=== PATIENT | female | born 1955 | race Caucasian/White ===

== ENCOUNTER 2020-09-22 13:02 | Outpatient (REF) | payer OTHER, SELFPAY | END 2020-09-22 13:03 | disposition home or self-care (01) | LOC: HO.LAB 13:02 | PROVIDERS: Visit Provider Nurse Practitioner Family | DX: R30.0 Dysuria (principal) | CPT/HCPCS: 87086 ==

== ENCOUNTER 2020-09-26 17:47 | Emergency (ER) | payer OTHER, SELFPAY ==
[2020-09-26 17:54] VITALS: BP 150/69; BP 160/82; PULSE 87; PULSE 90; RESP 18; TEMP 37.2; O2SAT 99; BMI 24.4
--- NOTE | 2020-09-26 18:14 | ECG_ITS ---
Test Reason : DIZZINESS Blood Pressure : / mmHG Vent. Rate : 090 BPM Atrial Rate : 090 BPM P-R Int : 160 ms QRS Dur : 090 ms QT Int : 402 ms P-R-T Axes : 035 047 057 degrees QTc Int : 491 ms Normal sinus rhythm Normal ECG When compared with ECG of 30-APR-2020 13:50, No significant change was found Referred By: Jayden Armenta Electronically Signed By:HILARIA BYERS MD
--- NOTE | 2020-09-26 18:22 | ED.DIZZY ---
HPI - Dizziness General Chief Complaint: Dizziness Stated Complaint: anxiety Time Seen by Provider: 09/26/20 18:13 Source: patient Mode of arrival: ambulatory Limitations: no limitations History of Present Illness HPI Narrative: patient been complaining of increased anxiety for last few days upper back pain for last 2 weeks today she was bending down and all of a sudden she felt dizzy when she came she was hyperventilating patient denies any significant precipitating factor already on tramadol and Flexeril without any response and seen her primary care doctor last week MD elicited complaint: dizziness and lightheadedness Timing: sudden onset Severity: mild Description: lightheadedness History of similar symptoms: No Related Data Home Medications Medication Instructions Recorded Confirmed acetaminophen 500 mg tablet mg PO 09/22/20 albuterol sulfate 90 mcg/actuation 1 - 2 puff INHALATION Q4-6H PRN 09/22/20 aerosol inhaler alcohol swabs pad TOPICAL 09/22/20 azithromycin 250 mg tablet mg PO 09/22/20 blood sugar diagnostic #10 ea 09/22/20 bupropion HCl 150 mg 24 hr tablet, 150 mg PO DAILY 09/22/20 extended release canagliflozin 100 mg tablet 100 mg PO DAILY 09/22/20 cefpodoxime 100 mg tablet 100 mg PO Q12H 09/22/20 cholecalciferol (vitamin D3) 50 50 mcg PO DAILY 09/22/20 mcg (2,000 unit) tablet cyanocobalamin (vitamin B-12) 1,000 mcg SUBLINGUAL DAILY 09/22/20 1,000 mcg sublingual tablet flash glucose scanning reader #1 ea 09/22/20 flash glucose sensor #1 ea 09/22/20 hydrocodone-homatropine 5 mg-1.5 5 ml PO Q8H PRN 09/22/20 mg/5 mL oral syrup ibuprofen 800 mg tablet 800 mg PO BID 09/22/20 lancets 28 gauge #100 ea 09/22/20 liraglutide 0.6 mg/0.1 mL (18 mg/3 mg SUBCUT 09/22/20 mL) subcutaneous pen injector metformin 1,000 mg tablet 1,000 mg PO BID 09/22/20 omeprazole 20 mg capsule,delayed 20 mg PO DAILY 09/22/20 release oxycodone 5 mg tablet 5 mg PO Q6H PRN 09/22/20 pen needle, diabetic 31 gauge x #50 ea 09/22/20 3/16 pen needle, diabetic 32 gauge x #50 ea 09/22/20 phenazopyridine 200 mg tablet 200 mg PO TID 09/22/20 simvastatin 80 mg tablet 80 mg PO DAILY 09/22/20 tramadol 50 mg tablet mg PO 09/22/20 trazodone 150 mg tablet 150 mg PO BEDTIME 09/22/20 trazodone 50 mg tablet mg PO 09/22/20 Previous Rx's Medication Instructions Recorded atorvastatin 80 mg tablet 80 mg PO DAILY #30 tab 09/05/20 cyclobenzaprine 5 mg tablet 5 mg PO BEDTIME PRN #10 tab 09/22/20 hydrocortisone 1 % topical cream 1 applic CO BID #28.4 g 09/22/20 with perineal applicator nitrofurantoin 100 mg PO Q12H 7 Days #14 cap 09/22/20 monohydrate/macrocrystals 100 mg capsule Allergies Allergy/AdvReac Type Severity Reaction Status Date / Time No Known Allergies Allergy Unverified 08/12/20 17:42 [No Known Allergies*] estradiol [Vivelle] AdvReac Unknown N/V Verified 07/08/20 00:00 Review of Systems Review of Systems: REVIEW OF SYSTEMS: Pertinent positives and negatives are stated above in the history. GEN: no fevers, chills, fatigue HEENT: no nasal congestion, sore throat, ear pain NEURO: no headache, dizziness, focal weakness PULM: no cough, shortness of breath CV: no chest pain, palpitations, LE edema ABD: no abdominal pain, nausea, vomiting, diarrhea : no dysuria, urgency, frequency SKIN: no rash ROS otherwise negative x 10 [facility] Past Medical History Medical History Carpal tunnel syndrome Depression Elevated cholesterol Hemorrhoids Hypertension IDDM (insulin dependent diabetes mellitus) Incontinence Insomnia Tubal occlusion Surgical History H/O tubal ligation History of bladder surgery History of heart artery stent Hx of appendectomy Hx of breast reduction, elective S/P sinus surgery Social History Social History Alcohol intake: never Smoking Status: Never smoker Use of substances other than those prescribed or required for medical reasons: No Advance Directives: No Advance Directives Information Provided: No Physical Exam Vital Signs: Vital Signs: Vital Signs Temp Pulse Resp BP Pulse Ox 09/26/20 17:54 98.9 F 87 18 150/69 H 99 Body Mass Index 24.4 Appearance: Alert. Oriented X3. No acute distress. very anxious Eyes: Pupils equal, round and reactive to light. ENT: Pharynx normal. Neck: Normal inspection. Neck supple. diffuse muscular tenderness upper back CVS: Normal heart rate and rhythm. Pulses normal. Respiratory: No respiratory distress. Breath sounds normal. Abdomen: Soft and nontender. Skin: Skin warm and dry. Normal skin color. Normal skin turgor. Extremities: No lower extremity edema. Good range of movement Neuro: Oriented X 3. No motor deficit. No sensory deficit. Course Course Course Narrative: patient very anxious on arrival feels much better after Ativan now walking around in the ER will discharge her home with diagnosis of anxiety and likely fibromyalgia MDM - Dizziness Lab Data Labs: Lab Results 09/26/20 09/26/20 Range/Units 18:19 18:26 POC Glucose 83 (60-115) mg/dL Urine Color YELLOW Urine Appearance CLEAR Urine pH 7.0 (5.0-8.0) Ur Specific [place] 1.010 (1.005-1.025) Urine Protein NEG (NEG-TRACE) MG/DL Urine Glucose (UA) 500 H (NEG) MG/DL Urine Ketones 15 (NEG) MG/DL Urine Blood NEG (NEG) Urine Nitrite NEG (NEG) Ur Leukocyte Esterase 1+ H (NEG) Urine RBC 0 (0) /HPF Urine WBC 30-49 H (0-4) /HPF Ur Squamous Epith Cells 3+ /LPF Urine Bacteria 1+ /LPF ECG Data Attestation: I personally reviewed and interpreted this ECG as follows: Interpretation: normal sinus rate QT interval slightly prolonged [address] T wave changes normal intervals normal axis Discharge Plan Discharge Prescriptions: No Action atorvastatin 80 mg tablet 80 mg PO DAILY Qty: 30 RF: 2 (DME) lancets 28 gauge misc See Rx Instructions lancet topical QID Qty: 100 RF: 0 (DME) FreeStyle Lite Strips Strip See Rx Instructions strip .ROUTE .MEDSUPPLY Qty: 10 RF: 0 (DME) pen needle, diabetic 31 gauge x 3/16 needle See Rx Instructions ea subcut .MEDSUPPLY Qty: 50 RF: 0 cholecalciferol (vitamin D3) 50 mcg (2,000 unit) tablet 50 mcg PO DAILY RF: 0 simvastatin 80 mg tablet 80 mg PO DAILY RF: 0 Victoza 3-Jalil 0.6 mg/0.1 mL (18 mg/3 mL) pen injector subcut RF: 0 cyanocobalamin (vitamin B-12) 1,000 mcg tablet, sublingual 1,000 mcg sublingual DAILY RF: 0 Invokana 100 mg tablet 100 mg PO DAILY RF: 0 omeprazole 20 mg capsule,delayed release(DR/EC) 20 mg PO DAILY RF: 0 (DME) FreeStyle Lisa 14 Day Sensor Kit See Rx Instructions ea topical .MEDSUPPLY Qty: 1 RF: 0 trazodone 150 mg tablet 150 mg PO BEDTIME RF: 0 tramadol 50 mg tablet PO RF: 0 phenazopyridine 200 mg tablet 200 mg PO TID RF: 0 cefpodoxime 100 mg tablet 100 mg PO Q12H RF: 0 bupropion HCl 150 mg tablet extended release 24 hr 150 mg PO DAILY RF: 0 metformin 1,000 mg tablet 1,000 mg PO BID RF: 0 (DME) pen needle, diabetic 32 gauge x 5/32 needle See Rx Instructions ea subcut BID Qty: 50 RF: 0 trazodone 50 mg tablet PO RF: 0 oxycodone 5 mg tablet 5 mg PO Q6H PRN (Reason: pain) RF: 0 ibuprofen 800 mg tablet 800 mg PO BID RF: 0 alcohol swabs Pads, Medicated topical RF: 0 azithromycin 250 mg tablet PO RF: 0 albuterol sulfate 90 mcg/actuation HFA aerosol inhaler 1 - 2 puff inhalation Q4-6H PRN (Reason: dyspnea) RF: 0 hydrocodone-homatropine 5-1.5 mg/5 mL syrup 5 ml PO Q8H PRN (Reason: cough) RF: 0 acetaminophen 500 mg tablet PO RF: 0 (DME) FreeStyle Lisa 14 Day [place] Misc See Rx Instructions ea topical .MEDSUPPLY Qty: 1 RF: 0 nitrofurantoin monohyd/m-cryst [Macrobid] 100 mg capsule 100 mg PO Q12H 7 Days Qty: 14 RF: 0 cyclobenzaprine 5 mg tablet 5 mg PO BEDTIME PRN (Reason: muscle spasm) Qty: 10 RF: 0 hydrocortisone 1 % cream with perineal applicator 1 applic CO BID Qty: 28.4 RF: 0
[2020-09-26 18:23] LABS: Glucose, Whole Blood 83 mg/dL (60-115)
[2020-09-26 18:31] LABS: Appearance Urine CLEAR; Color Urine YELLOW; Glucose Urine UA 500 MG/DL (NEG); Leukocyte Esterase Urine 1+ (NEG); Nitrite Urine NEG (NEG); Urine Blood NEG (NEG); Urine Ketones 15 MG/DL (NEG); Urine Protein NEG (NEG-TRACE)
[2020-09-26] MEDS: LORazepam 1 MG TABLET PO (18:37)
[2020-09-26 18:40] LABS: Bacteria Urine 1+ /LPF; RBC Urine 0 /HPF (0); Squamous Epithelial Cell Urine 3+ /LPF; WBC Urine 30-49 /HPF (0-4)
[2020-09-26 19:33] VITALS: BP 147/80; PULSE 80; RESP 16; TEMP 36.9; O2SAT 98
== END 2020-09-26 19:34 | disposition home or self-care (01) ==
PROVIDERS: Emergency Provider Internal Medicine; PCP Internal Medicine
DX: R42 Dizziness and giddiness (principal); M54.5 Low back pain; M54.6 Pain in thoracic spine; Z79.899 Other long term (current) drug therapy
CPT/HCPCS: 81001; 82947; 87086; 93005; 99283; 99284

== ENCOUNTER → 2020-11-03 08:18 | Outpatient (BNVA) | payer OTHER, SELFPAY | PROVIDERS: PCP Internal Medicine; Referring Provider Internal Medicine; Visit Provider Internal Medicine Endocrinology, Diabetes & Metabolism | DX: E11.649 Type 2 diabetes mellitus with hypoglycemia without coma (principal); E11.42 Type 2 diabetes mellitus with diabetic polyneuropathy; I10 Essential (primary) hypertension; E78.5 Hyperlipidemia, unspecified; E55.9 Vitamin D deficiency, unspecified; M85.80 Other specified disorders of bone density and structure, unspecified site | CPT/HCPCS: 82947; 99212 ==

== ENCOUNTER 2020-11-15 09:38 | Outpatient (REF) | payer OTHER, SELFPAY ==
--- NOTE | 2020-11-15 09:43 | MM_ITS ---
EXAMINATION: MM SCREENING DIGITAL BREAST TOMOSYNTHESIS, BILATERAL CLINICAL INFORMATION: Screening. Asymptomatic. Prior history breast reduction mammoplasty 1976. No known family history breast cancer. The lifetime risk of breast cancer based on the Tyrer-Cuzick Model is 6%. COMPARISON: Mammography: 11/06/2019, 09/24/2018, 08/09/2017 TECHNIQUE: Digital breast tomosynthesis is performed in both the craniocaudal and mediolateral oblique views along with computer-aided detection (CAD). Synthesized 2D images are generated from the tomosynthesis. FINDINGS: There are scattered areas of fibroglandular density (ACR BI-RADS breast composition Category b). Parenchymal pattern is similar to prior studies. There is minor scarring and benign bilateral predominantly anterior breast calcifications consistent with the prior history remote reduction mammoplasty. There is no developing density or interval mass or architectural abnormality or abnormal calcifications. No significant changes from prior study. MM/MM tomosynthesis screening BI IMPRESSION: No mammographic evidence of malignancy. ASSESSMENT: BI-RADS 2: Benign RECOMMENDATION: Routine annual mammography screening. This patient's information was entered into a reminder system with a target due date for their next mammogram.
== END 2020-11-15 09:39 | disposition home or self-care (01) ==
LOC: HO.MAMMO 09:38
PROVIDERS: PCP Internal Medicine; Visit Provider Internal Medicine
DX: Z12.31 Encounter for screening mammogram for malignant neoplasm of breast (principal)
CPT/HCPCS: 77063; 77067

== ENCOUNTER 2020-12-17 10:11 | Outpatient (REF) | payer OTHER, SELFPAY ==
--- NOTE | 2020-12-17 10:17 | XR_ITS ---
EXAMINATION: XR SHOULDER, RIGHT CLINICAL INFORMATION: Impingement syndrome right shoulder COMPARISON: None TECHNIQUE: Right shoulder is imaged in 4 views. FINDINGS: There is calcific tendinosis with bulky calcification in region of distal superior rotator cuff adjacent to greater tuberosity measuring 0.5 cm and thickness by 1.3 cm in length. There is also a 0.3 x 0.6 cm calcification adjacent to humeral neck in region of long head biceps. There is a punctate calcification at origin short head biceps adjacent to the coracoid process. There is no fracture or dislocation or destructive process. The glenohumeral joint appears normal. The acromioclavicular alignment is normal. XR/XR shoulder RT min 2V IMPRESSION: 1. Calcific tendinosis in region of distal superior rotator cuff, long head biceps, and origin short head biceps. 2. No bony abnormality.
== END 2020-12-17 10:12 | disposition home or self-care (01) ==
LOC: HO.XRAY 10:11
PROVIDERS: PCP Internal Medicine; Visit Provider Physician Assistant
DX: M75.41 Impingement syndrome of right shoulder (principal)
CPT/HCPCS: 73030

== ENCOUNTER 2021-03-29 08:59 | Outpatient (REF) | payer OTHER, SELFPAY ==
[2021-04-03 07:32] LABS: HPV mRNA E6/E7 rflx Not Detected (Not Detected)
== END 2021-03-29 09:00 | disposition home or self-care (01) ==
LOC: HO.LAB 08:59
PROVIDERS: Visit Provider Obstetrics & Gynecology
DX: Z01.419 Encounter for gynecological examination (general) (routine) without abnormal findings (principal); Z11.51 Encounter for screening for human papillomavirus (HPV)
CPT/HCPCS: 87624; 88142

== ENCOUNTER 2021-04-13 08:56 | Outpatient (REF) | payer OTHER, SELFPAY ==
[2021-04-13 11:38] LABS: Alanine Aminotransferase 25 U/L (0-31); Albumin Level 4.2 g/dL (3.5-5.0); Alkaline Phosphatase 82 U/L (39-117); Anion Gap 11 (12-20); Aspartate Amino Transferase 22 U/L (5-31); Bilirubin Total 0.6 mg/dL (0.0-1.0); Blood Urea Nitrogen 17 mg/dL (9-16); Calcium 9.1 mg/dL (8.4-10.2); Carbon Dioxide 26 mmol/L (22-29); Chloride 106 mmol/L (96-108); Cholesterol 126 mg/dL; Estimated Glomerular Filt Rate 57; Glucose Random 90 mg/dL (60-115); HDL Cholesterol 45 mg/dL; LDL Cholesterol Calculated 67 mg/dl; Potassium 4.4 mmol/L (3.3-5.1); Sodium 139 mmol/L (135-145); Total Protein 7.3 g/dL (6.5-8.0); Triglycerides 71 mg/dL
[2021-04-13 12:12] LABS: Creatinine Urine 164.78 mg/dL; Vitamin B12 1666 pg/mL (200-900)
[2021-04-13 12:20] LABS: Thyroid Stimulating Hormone 1.37 uIU/mL (0.32-4.0)
[2021-04-14 08:16] LABS: LDL Cholesterol Direct 65 mg/dL (<100)
== END 2021-04-13 08:57 | disposition home or self-care (01) ==
LOC: HO.LAB 08:56
PROVIDERS: PCP Internal Medicine; Visit Provider Internal Medicine Endocrinology, Diabetes & Metabolism
DX: E11.42 Type 2 diabetes mellitus with diabetic polyneuropathy (principal); Z79.84 Long term (current) use of oral hypoglycemic drugs; I10 Essential (primary) hypertension; E78.5 Hyperlipidemia, unspecified; E55.9 Vitamin D deficiency, unspecified; M85.80 Other specified disorders of bone density and structure, unspecified site; Z79.899 Other long term (current) drug therapy
CPT/HCPCS: 36415; 80053; 80061; 82043; 82607; 82947; 83721; 84439; 84443; 99212

== ENCOUNTER → 2021-08-29 09:51 | Outpatient (BNVA) | payer OTHER, SELFPAY | PROVIDERS: PCP Internal Medicine; Referring Provider Internal Medicine; Visit Provider Internal Medicine | DX: I25.10 Atherosclerotic heart disease of native coronary artery without angina pectoris (principal); E11.8 Type 2 diabetes mellitus with unspecified complications; I10 Essential (primary) hypertension | CPT/HCPCS: 93005; 99212 ==

== ENCOUNTER 2021-09-25 10:30 | Emergency (ER) | payer OTHER, SELFPAY ==
--- NOTE | ~2021-09-25 | XR_ITS ---
EXAMINATION: XR FEMUR, RIGHT CLINICAL INFORMATION: Fall COMPARISON: Right hip x-ray November 2017 TECHNIQUE: AP and lateral views of the right femur were obtained. FINDINGS: Bone alignment is normal. No fracture or dislocation is seen. There is mild arthritis of the right hip joint with joint space narrowing and small osteophyte. There is a small osteophyte at the quadriceps tendon insertion to the patella. The knee joint is otherwise unremarkable. There is mild soft tissue arterial calcification. XR/XR femur RT 2V IMPRESSION: No fracture or dislocation seen.
[2021-09-25 10:36] VITALS: BP 148/55; PULSE 93; RESP 16; TEMP 36.9; O2SAT 98; BMI 28.3
--- NOTE | 2021-09-25 12:01 | ED.LOWEXIN ---
HPI - Extremity Injury (Lower) General Chief Complaint: Extremity Injury, Lower Stated Complaint: r leg pain fall Time Seen by Provider: 09/25/21 11:48 Source: patient Mode of arrival: ambulatory Limitations: language barrier (senegalese speaking) History of Present Illness HPI Narrative: 65-year-old female past medical history of HTN, hyperlipidemia, DM, chronic back pain presents to the emergency department with complaints of right thigh pain status post falling off a grocery cart while attempting to grab keys from the roof of her house yesterday evening. She states she climbed up on a car, went to step down, did not realize of the cart was so high off the ground, she fell flat on to her right foot heard a crack, and started experiencing right anterior thigh pain that is constant in nature, 10/10 worse with ambulation, better at rest. She states she has been able to ambulate with a limp, and it is painful to ambulate, she has been using a cane. When she fall she did not hit her head, or lose consciousness. She denies chest pain, shortness of breath, fevers, chills, head trauma, nausea, vomiting, weakness, knee pain, ankle pain, hip pain MD complaint: other (right thigh) Onset (ago): day(s) (1) Type of Injury: blunt Place: home Severity scale (1-10): 10 Relieving factors: NSAID and immobilization Exacerbating factors: weight bearing and movement Context: fall Associated symptoms: snap/pop sensation Other symptoms: none Treatments prior to arrival: NSAIDS Related Data Home Medications Medication Instructions Recorded Confirmed blood sugar diagnostic #10 ea 09/22/20 07/04/21 bupropion HCl 150 mg 24 hr tablet, 150 mg PO DAILY 09/22/20 08/29/21 extended release flash glucose scanning reader #1 ea 09/22/20 07/04/21 flash glucose sensor #1 ea 09/22/20 07/04/21 lancets 28 gauge #100 ea 09/22/20 07/04/21 pen needle, diabetic 31 gauge x #50 ea 09/22/20 07/04/21 3/16 pen needle, diabetic 32 gauge x #50 ea 09/22/20 07/04/2132 trazodone 150 mg tablet 150 mg PO BEDTIME 09/22/20 08/29/21 melatonin 10 mg capsule 10 mg PO BEDTIME PRN 12/09/20 10/04/21 hydroxyzine pamoate 25 mg capsule 25 mg PO BEDTIME 04/13/21 07/04/21 (Vistaril) sertraline 50 mg tablet (Zoloft) 25 mg PO DAILY PRN tab 04/13/21 08/29/21 canagliflozin 100 mg tablet 100 mg PO DAILY tab 08/29/21 08/29/21 Previous Rx's Medication Instructions Recorded cyclobenzaprine 5 mg tablet 5 mg PO BEDTIME PRN #10 tab 09/22/20 hydrocortisone 1 % topical cream 1 applic CA BID #28.4 g 09/22/20 with perineal applicator lorazepam 1 mg tablet (Ativan) 1 mg PO BEDTIME PRN #10 tab 09/26/20 shower chair #1 ea 11/09/20 alcohol swabs 1 pad TOPICAL .6 times a day 30 03/29/21 Days #200 ea FreeStyle Precision [place] Strips #50 ea NS 04/13/21 (blood sugar diagnostic) atorvastatin 80 mg tablet 80 mg PO DAILY 30 Days #30 tab 04/13/21 cholecalciferol (vitamin D3) 50 50 mcg PO DAILY 90 Days #90 tab 04/13/21 mcg (2,000 unit) tablet cyanocobalamin (vitamin B-12) 1,000 mcg PO DAILY 30 Days #30 tab 04/13/21 1,000 mcg tablet flash glucose sensor (FreeStyle #2 ea 04/13/21 Lisa 14 Day Sensor) liraglutide 0.6 mg/0.1 mL (18 mg/3 1.8 mg SUBCUT DAILY 30 Days #9 ml 04/13/21 mL) subcutaneous pen injector metformin 500 mg tablet 500 mg PO DAILY 30 Days #30 tab 04/13/21 pen needle, diabetic 32 gauge x #50 ea 04/13/21 (BD Melissa 2nd Gen Pen Needle) aspirin 81 mg tablet,delayed 81 mg PO DAILY #90 tab 08/29/21 release (Enteric Coated Aspirin) omeprazole 20 mg capsule,delayed 20 mg PO DAILY 90 Days #90 cap 09/23/21 release walker #1 ea 09/25/21 Allergies Allergy/AdvReac Type Severity Reaction Status Date / Time estradiol [Vivelle] AdvReac Unknown N/V Verified 07/04/21 10:31 Review of Systems Review of Systems: Yes all other systems are reviewed and are negative Constitutional: Constitutional: Reports no additional constitutional complaints, Denies body ache(s), Denies chills, Denies fever(s), Denies headache(s) and Denies weakness Eyes: Eyes: Reports no additional eye complaints and Denies change in vision ENT: Reports system reviewed and no additional complaints, except as documented, Denies dizziness, Denies headache(s), Denies nasal congestion, Denies nasal discharge and Denies neck pain Cardiovascular: Cardiovascular: Reports no additional cardiovascular complaints, Denies chest pain, Denies leg edema and Denies dyspnea Respiratory: Respiratory: Reports no additional respiratory complaints, Denies cough and Denies dyspnea Gastrointestinal: Gastrointestinal: Reports no additional gastrointestinal complaints, Denies abdominal pain, Denies diarrhea, Denies nausea and Denies vomiting Genitourinary: Genitourinary: Reports no additional female genitourinary complaints and Denies urinary incontinence Musculoskeletal: Musculoskeletal: Reports no additional musculoskeletal complaints, Denies back pain, Denies arthralgias, Denies joint swelling, Denies neck pain, Denies numbness, Denies tingling and Reports other (right anterior thigh pain ) Integumentary/Breasts: Skin/Breast: Reports system reviewed and no additional complaints, except as docu and Denies rash Neurologic: Reports system reviewed and no additional complaints, except as documented, Denies Abnormal speech present, Denies dizziness, Denies headache(s), Denies numbness, Denies tingling and Denies weakness PMFSH Past Medical History Attestation statement: The following information was validated with the patient. Source: old records reviewed and nursing notes reviewed Medical History Carpal tunnel syndrome Depression Diabetes 1.5, managed as type 1 Diabetes type 2, uncontrolled Diabetic polyneuropathy associated with type 2 diabetes mellitus Dyslipidemia Elevated cholesterol Hemorrhoids Hospital discharge follow-up Hypertension IDDM (insulin dependent diabetes mellitus) Incontinence Insomnia Osteopenia Panic anxiety syndrome Tubal occlusion Vitamin D deficiency Surgical History H/O tubal ligation History of bladder surgery History of carpal tunnel release History of colonoscopy History of heart artery stent History of hemorrhoidectomy Hx of appendectomy Hx of breast reduction, elective S/P sinus surgery Family History Family History Father No problems noted. Mother Heart disease Lung cancer Brother Liver cancer Brother Renal cancer HTN (hypertension) Diabetes mellitus Maternal Grandfather No problems noted. Maternal Grandmother No problems noted. Paternal Grandfather No problems noted. Paternal Grandmother No problems noted. Maternal Uncle Diabetes mellitus Paternal Uncle Diabetes mellitus Son No problems noted. Daughter No problems noted. Social History Social History Housing: House Alcohol intake: never Patient Tobacco Use Status: Never used Tobacco Advance Directives: No Advance Directives Information Provided: No Patient : No Current occupational status: unemployed Physical Exam Vital Signs: Vital Signs: Last Vital Signs Temp 98.4 F 09/25/21 10:36 Pulse 93 09/25/21 10:36 Resp 16 09/25/21 10:36 BP 148/55 H 09/25/21 10:36 Pulse Ox 98 09/25/21 10:36 Body Mass Index 28.3 Const: General: cooperative, healthy appearing, comfortable and no acute distress Orientation/consciousness: patient oriented x3 Limitations: no limitations HENMT: Head: Yes normal to inspection Ears: hearing grossly normal bilaterally General nose exam: Normal external nose present Face and sinus: Yes normal facial exam Mouth: Normal oral and palatal mucosa present Throat: Yes posterior oropharynx normal Eyes: General: appearance normal, both eyes and all related structures Pupils: Equal, round and reactive pupils present Neck: Neck: Yes normal visual inspection Chest: Chest palpation & inspection: normal inspection of the chest Resp: Effort & Inspection: normal respiratory effort Auscultation: clear to auscultation bilaterally Cardio: Rate: regular rate Rhythm: regular rhythm Peripheral pulses: Peripheral pulses 2+ throughout GI: Inspection: Yes normal to inspection Palpation (GI): Soft to palpation and nontender Auscultation: normal bowel sounds Back/Spine/Pelvis: Thoracic/Lumbar Spine: thoracic and lumbar spine normal to inspection Skin: General skin exam: no rashes or lesions noted Neuro: General: patient oriented x3, no focal motor deficits and normal sensation to monofilament Cranial nerves: Yes Equal, round and reactive pupils present Cognition (Neuro): normal cognition Speech: No Abnormal speech present Gait exam (Neuro): Normal gait present Motor exam (neuro): 5/5 motor strength present throughout Extrem: Other: Pain to palpation over right anterior, and posterior aspect of quadriceps muscle. No overlying skin changes. Patient in able to ambulate with pain, and an evident limp. Full ROM to bilateral knees, hips, ankles. General: Yes normal to inspection, Yes full ROM (painful ), Yes capillary refill normal, Yes no joint enlargement, No calf tenderness, No edema and Yes Limp noted Right upper extremity: normal to inspection Left upper extremity: normal to inspection Right lower extremity: normal to inspection Left lower extremity: normal to inspection Course Reevaluation(s) Reevaluation #1: X-ray of the right femur is negative for fractures, or dislocations. The right quadriceps muscle will be wrapped with an Aric bandage. Patient will be prescribed a walker, for ambulation. Patient is safe for discharge home with PCP follow-up. She has been instructed to take ibuprofen, and Tylenol alternating as needed for pain. Time: 12:10 MDM - Extremity Injury (Lower) MDM Narrative Medical decision making narrative: 65 yo female pmhx significant for chronic back pain, DM, HTN, HLD presents to the emergency department with pain overlying the right quadriceps muscle status post fall off of a grocery cart yesterday. Patient did not fall, did not hit her head or lose consciousness. Not on anticoagulation. Upon physical examination there is pain to palpation over right anterior, and posterior aspect of quadriceps muscle. No overlying skin changes or evident deformities. She has full range of motion to right knee, hip and ankle and able to move against resistnce. Patient in able to ambulate with pain, and an evident limp. Full ROM to bilateral knees, hips, ankles. Head is atraumatic, normal cephalic. Lungs are clear to auscultation, normal S1 and S2 free of murmurs. No focal neuro deficits. Normal strength upper and lower extremities. 2+ pulses equal bilateral. Plan is to obtain xray of femur. Medical Records Attestation: I reviewed the patient's medical records. Lab Data Attestation: I reviewed the patient's lab results. Imaging Data Right femur: Attestation: I personally reviewed and interpreted this imaging study as follows: Radiologist's impression: FINDINGS: Bone alignment is normal. No fracture or dislocation is seen. There is mild arthritis of the right hip joint with joint space narrowing and small osteophyte. There is a small osteophyte at the quadriceps tendon insertion to the patella. The knee joint is otherwise unremarkable. There is mild soft tissue arterial calcification.? XR/XR femur RT 2V IMPRESSION: No fracture or dislocation seen. Discharge Plan Discharge Clinical Impression: Quadriceps muscle strain Qualifiers: Encounter type: initial encounter Laterality: right Qualified Code(s): S76.111A - Strain of right quadriceps muscle, fascia and tendon, initial encounter Fall Qualifiers: Encounter type: initial encounter Qualified Code(s): W19.XXXA - Unspecified fall, initial encounter Patient Disposition: Home, Self-Care Instructions: Muscle Strain (ED), R.I.C.E. Treatment (ED) Additional Instructions: Please follow-up with your primary care provider this week. A prescription for a walker has been sent to your pharmacy. You can take ibuprofen every 6 hours, Tylenol every 4 hours as needed for pain. Rest, ice, compress, elevate. Return to the emergency department with new or worsening symptoms Eliu un seguimiento con carias proveedor de atenci?n primaria esta semana. Se alvarez enviado papi receta para un andador a carias farmacia. Puede carlyn ibuprofeno cada 6 horas, Tylenol cada 4 horas seg?n sea necesario para el dolor. Descansar, hielo, comprimir, elevar. Regrese al departamento de emergencias con s?ntomas nuevos o que empeoran Prescriptions: New (DME) walker Misc See Rx Instructions .Route Qty: 1 RF: 0 No Action (DME) shower chair Medium 0 .Route .MEDSUPPLY Qty: 1 RF: 0 alcohol swabs Pads, Medicated 1 pad topical .6 times a day 30 Days Qty: 200 RF: 6 omeprazole 20 mg capsule,delayed release(DR/EC) 20 mg PO DAILY 90 Days Qty: 90 RF: 0 lorazepam [Ativan] 1 mg tablet 1 mg PO BEDTIME PRN (Reason: anxiety) Qty: 10 RF: 0 sertraline [Zoloft] 50 mg tablet 25 mg PO DAILY PRN (Reason: panic attack(s)) RF: 0 (DME) lancets 28 gauge misc See Rx Instructions lancet topical QID Qty: 100 RF: 0 (DME) FreeStyle Lite Strips Strip See Rx Instructions strip .ROUTE .MEDSUPPLY Qty: 10 RF: 0 (DME) pen needle, diabetic 31 gauge x 3/16 needle See Rx Instructions ea subcut .MEDSUPPLY Qty: 50 RF: 0 (DME) FreeStyle Lisa 14 Day Sensor Kit See Rx Instructions ea topical .MEDSUPPLY Qty: 1 RF: 0 trazodone 150 mg tablet 150 mg PO BEDTIME RF: 0 bupropion HCl 150 mg tablet extended release 24 hr 150 mg PO DAILY RF: 0 (DME) pen needle, diabetic 32 gauge x 5/32 needle See Rx Instructions ea subcut BID Qty: 50 RF: 0 (DME) FreeStyle Lisa 14 Day [place] Misc See Rx Instructions ea topical .MEDSUPPLY Qty: 1 RF: 0 cyclobenzaprine 5 mg tablet 5 mg PO BEDTIME PRN (Reason: muscle spasm) Qty: 10 RF: 0 hydrocortisone 1 % cream with perineal applicator 1 applic CA BID Qty: 28.4 RF: 0 canagliflozin 100 mg tablet 100 mg PO DAILY RF: 0 aspirin [Enteric Coated Aspirin] 81 mg tablet,delayed release (DR/EC) 81 mg PO DAILY Qty: 90 RF: 4 hydroxyzine pamoate [Vistaril] 25 mg capsule 25 mg PO BEDTIME RF: 0 atorvastatin 80 mg tablet 80 mg PO DAILY 30 Days Qty: 30 RF: 5 cholecalciferol (vitamin D3) 50 mcg (2,000 unit) tablet 50 mcg PO DAILY 90 Days Qty: 90 RF: 1 cyanocobalamin (vitamin B-12) 1,000 mcg tablet 1,000 mcg PO DAILY 30 Days Qty: 30 RF: 6 (DME) FreeStyle Lisa 14 Day Sensor Kit See Rx Instructions .MEDSUPPLY Qty: 2 RF: 6 liraglutide 0.6 mg/0.1 mL (18 mg/3 mL) pen injector 1.8 mg subcut DAILY 30 Days Qty: 9 RF: 6 metformin 500 mg tablet 500 mg PO DAILY 30 Days Qty: 30 RF: 6 (DME) pen needle, diabetic [BD Melissa 2nd Gen Pen Needle] 32 gauge x 5/32 needle See Rx Instructions .MEDSUPPLY Qty: 50 RF: 4 (DME) FreeStyle Precision [place] Strips Strip See Rx Instructions .MEDSUPPLY Qty: 50 RF: 10 melatonin 10 mg capsule 10 mg PO BEDTIME PRNRF: 0 Referrals: Terrance Huitron MD [Primary Care Provider] - 2 days Interventions: ED Discharge Assessment Last Done: 09/25/21 12:42 Discharge Date/Time: 09/25/21 12:46 Print Language: Kiswahili
== END 2021-09-25 12:46 | disposition home or self-care (01) ==
PROVIDERS: Emergency Provider Emergency Medicine; PCP Internal Medicine
DX: S76.111A Strain of right quadriceps muscle, fascia and tendon, initial encounter (principal); W17.82XA Fall from (out of) grocery cart, initial encounter; E10.9 Type 1 diabetes mellitus without complications; I10 Essential (primary) hypertension; E78.5 Hyperlipidemia, unspecified; Y93.89 Activity, other specified; Y92.512 Supermarket, store or market as the place of occurrence of the external cause; Y99.9 Unspecified external cause status; Z79.899 Other long term (current) drug therapy; Z79.4 Long term (current) use of insulin
CPT/HCPCS: 73552; 99283

== ENCOUNTER → 2021-12-15 08:57 | Outpatient (BNVA) | payer OTHER, SELFPAY | PROVIDERS: PCP Internal Medicine; Visit Provider Nurse Practitioner Gerontology | DX: E11.649 Type 2 diabetes mellitus with hypoglycemia without coma (principal); E11.42 Type 2 diabetes mellitus with diabetic polyneuropathy; I10 Essential (primary) hypertension; E78.5 Hyperlipidemia, unspecified; E55.9 Vitamin D deficiency, unspecified | CPT/HCPCS: 82947; 83036; 99212 ==

== ENCOUNTER 2021-12-21 10:06 | Outpatient (REF) | payer OTHER, SELFPAY ==
--- NOTE | ~2021-12-21 | MM_ITS ---
EXAMINATION: MM SCREENING DIGITAL BREAST TOMOSYNTHESIS, BILATERAL CLINICAL INFORMATION: Screening. Asymptomatic. Remote reduction mammoplasty, 1976. The lifetime risk of breast cancer based on the Tyrer-Cuzick Model is 6%. COMPARISON: Mammography: 11/15/2020, 11/06/2019, 09/24/2018 TECHNIQUE: Digital breast tomosynthesis is performed in both the craniocaudal and mediolateral oblique views along with computer-aided detection (CAD). Synthesized 2D images are generated from the tomosynthesis. FINDINGS: There are scattered areas of fibroglandular density (ACR BI-RADS breast composition Category b). There are no significant masses, abnormal calcifications, or other abnormalities. Parenchymal pattern is similar to prior exams. There is minor scarring and scattered benign punctate, and dermal, and rim calcifications consistent with the remote reduction mammoplasty. MM/MM tomosynthesis screening BI IMPRESSION: No mammographic evidence of malignancy. ASSESSMENT: BI-RADS 2: Benign RECOMMENDATION: Routine annual mammography screening. This patient's information was entered into a reminder system with a target due date for their next mammogram.
== END 2021-12-21 10:07 | disposition home or self-care (01) ==
LOC: HO.MAMMO 10:06
PROVIDERS: PCP Internal Medicine; Visit Provider Internal Medicine
DX: Z12.31 Encounter for screening mammogram for malignant neoplasm of breast (principal)
CPT/HCPCS: 77063; 77067

== ENCOUNTER → 2022-01-12 08:57 | Outpatient (BNVA) | payer OTHER, SELFPAY | PROVIDERS: PCP Internal Medicine; Visit Provider Dietitian, Registered | DX: E11.649 Type 2 diabetes mellitus with hypoglycemia without coma (principal); Z71.3 Dietary counseling and surveillance | CPT/HCPCS: 97802 ==

== ENCOUNTER → 2022-03-02 10:10 | Outpatient (BNVA) | payer OTHER, SELFPAY | PROVIDERS: PCP Internal Medicine; Visit Provider Dietitian, Registered | DX: E11.649 Type 2 diabetes mellitus with hypoglycemia without coma (principal) | CPT/HCPCS: 97803 ==

== ENCOUNTER 2022-03-06 07:59 | Outpatient (REF) | payer OTHER, SELFPAY ==
[2022-03-06 09:22] LABS: Alanine Aminotransferase 40 U/L (0-31); Albumin Level 4.2 g/dL (3.5-5.0); Alkaline Phosphatase 86 U/L (39-117); Anion Gap 14 (12-20); Aspartate Amino Transferase 25 U/L (5-31); Bilirubin Total 0.3 mg/dL (0.0-1.0); Blood Urea Nitrogen 15 mg/dL (9-16); Calcium 9.3 mg/dL (8.4-10.2); Carbon Dioxide 23 mmol/L (22-29); Chloride 107 mmol/L (96-108); Cholesterol 208 mg/dL; Estimated Glomerular Filt Rate > 60; Glucose Fasting 131 mg/dL (60-99); HDL Cholesterol 36 mg/dL; LDL Cholesterol Calculated 136 mg/dl; Potassium 4.2 mmol/L (3.3-5.1); Sodium 140 mmol/L (135-145); Total Protein 7.5 g/dL (6.5-8.0); Triglycerides 182 mg/dL
[2022-03-06 09:46] LABS: Vitamin D 25-OH Total 39.9 ng/mL (>30)
[2022-03-06 10:58] LABS: Creatinine Urine 184.97 mg/dL; Microalbum/Creatinine Ratio Ur 12.9 ug/mg cr
[2022-03-08 01:56] LABS: LDL Cholesterol Direct 154 mg/dL (<100)
== END 2022-03-06 08:00 | disposition home or self-care (01) ==
LOC: HO.LAB 07:59
PROVIDERS: PCP Internal Medicine; Visit Provider Nurse Practitioner Gerontology
DX: E11.649 Type 2 diabetes mellitus with hypoglycemia without coma (principal); E55.9 Vitamin D deficiency, unspecified
CPT/HCPCS: 36415; 80053; 80061; 82043; 82306; 83721

== ENCOUNTER → 2022-03-16 08:57 | Outpatient (BNVA) | payer OTHER, SELFPAY | PROVIDERS: PCP Internal Medicine; Visit Provider Nurse Practitioner Gerontology | DX: E11.649 Type 2 diabetes mellitus with hypoglycemia without coma (principal); E11.42 Type 2 diabetes mellitus with diabetic polyneuropathy; I10 Essential (primary) hypertension; E78.5 Hyperlipidemia, unspecified; E55.9 Vitamin D deficiency, unspecified; Z79.84 Long term (current) use of oral hypoglycemic drugs | CPT/HCPCS: 82947; 83036; 99212 ==

== ENCOUNTER 2022-04-05 08:57 | Outpatient (REF) | payer OTHER, SELFPAY ==
[2022-04-05 13:59] LABS: CT PCR NOT DETECTED (Not Detect.); NG PCR NOT DETECTED (Not Detect.)
== END 2022-04-05 08:58 | disposition home or self-care (01) ==
LOC: HO.LAB 08:57
PROVIDERS: PCP Internal Medicine; Visit Provider Advanced Practice Midwife
DX: Z01.419 Encounter for gynecological examination (general) (routine) without abnormal findings (principal); Z20.2 Contact with and (suspected) exposure to infections with a predominantly sexual mode of transmission
CPT/HCPCS: 87491; 87591

== ENCOUNTER 2022-04-11 08:51 | Outpatient (REF) | payer OTHER, SELFPAY ==
[2022-04-11 10:25] LABS: Vitamin B12 671 pg/mL (200-900)
== END 2022-04-11 08:52 | disposition home or self-care (01) ==
LOC: HO.LAB 08:51
PROVIDERS: PCP Internal Medicine; Visit Provider Nurse Practitioner Gerontology
DX: E11.8 Type 2 diabetes mellitus with unspecified complications (principal)
CPT/HCPCS: 36415; 82607

== ENCOUNTER 2022-04-21 11:30 | Outpatient (RCR) | payer OTHER, SELFPAY | END 2022-04-21 12:01 | disposition home or self-care (01) | LOC: HO.OT 11:30 | PROVIDERS: PCP Internal Medicine; Visit Provider Physician Assistant | DX: Z48.811 Encounter for surgical aftercare following surgery on the nervous system (principal); Z47.89 Encounter for other orthopedic aftercare | CPT/HCPCS: 97110; 97165 ==

== ENCOUNTER → 2022-05-02 09:04 | Outpatient (BNVA) | payer OTHER, SELFPAY | PROVIDERS: PCP Internal Medicine; Visit Provider Dietitian, Registered | DX: E11.649 Type 2 diabetes mellitus with hypoglycemia without coma (principal); Z71.3 Dietary counseling and surveillance | CPT/HCPCS: 97803 ==

== ENCOUNTER 2022-06-07 12:51 | Outpatient (REF) | payer OTHER, SELFPAY ==
--- NOTE | ~2022-06-07 | XR_ITS ---
EXAMINATION: XR KNEE, RIGHT CLINICAL INFORMATION: M25.561 - Pain in right knee COMPARISON: Radiographs right femur 09/25/2021. TECHNIQUE: AP and lateral views of the right knee are obtained. FINDINGS: No fracture, dislocation, or destructive process. No deep joint narrowing or erosive changes or chondrocalcinosis. No suprapatellar effusion. Hoffa's fat pad appears normal. There is bulky spurring at the quadriceps insertion patella and some lesser spurring at origin patellar tendon. XR/XR knee RT 2V IMPRESSION: Spurring extensor mechanism at quadriceps insertion and origin patellar tendon.
== END 2022-06-07 12:52 | disposition home or self-care (01) ==
LOC: HO.HMGCX 12:51
PROVIDERS: PCP Internal Medicine; Visit Provider Internal Medicine
DX: M25.561 Pain in right knee (principal); M25.511 Pain in right shoulder; R41.3 Other amnesia
CPT/HCPCS: 73560

== ENCOUNTER 2022-07-28 07:17 | Outpatient (REF) | payer OTHER, SELFPAY ==
--- NOTE | ~2022-07-28 | XR_ITS ---
EXAMINATION: XR KNEE AP STANDING X-ray right knee CLINICAL INFORMATION: Bilateral knee pain COMPARISON: X-ray 06/07/2022 TECHNIQUE: AP bilateral standing view of the knees was obtained. Right knee one view. FINDINGS: No fracture or dislocation. Medial and lateral compartment joint spaces are relatively maintained. On the skyline view, question mild joint space concerning versus sequela of technique. Superior patellar insertional spurring. XR/XR knee standing BI IMPRESSION: No acute findings. Question patellofemoral joint space narrowing versus apparent narrowing secondary to technique. .
--- NOTE | ~2022-07-28 | XR_ITS ---
EXAMINATION: XR KNEE AP STANDING X-ray right knee CLINICAL INFORMATION: Bilateral knee pain COMPARISON: X-ray 06/07/2022 TECHNIQUE: AP bilateral standing view of the knees was obtained. Right knee one view. FINDINGS: No fracture or dislocation. Medial and lateral compartment joint spaces are relatively maintained. On the skyline view, question mild joint space concerning versus sequela of technique. Superior patellar insertional spurring. XR/XR knee RT 1V IMPRESSION: No acute findings. Question patellofemoral joint space narrowing versus apparent narrowing secondary to technique. .
== END 2022-07-28 07:18 | disposition home or self-care (01) ==
LOC: HO.HOSX 07:17
PROVIDERS: Visit Provider Physician Assistant
DX: M17.11 Unilateral primary osteoarthritis, right knee (principal); M72.2 Plantar fascial fibromatosis
CPT/HCPCS: 73560; 73565; 99202

== ENCOUNTER 2022-08-08 15:55 | Outpatient (REF) | payer OTHER, SELFPAY ==
[2022-08-08 18:08] LABS: Erythrocyte Sedimentation Rate 14 MM/HR (0-20)
[2022-08-09 05:41] LABS: Syphilis Screen Nonreactive (Nonreactive)
[2022-08-09 05:51] LABS: Folate 19.2 ng/mL (> or = 4.0); Vitamin B12 746 pg/mL (200-900)
[2022-08-11 20:26] LABS: Homocysteine 9.9 umol/L (<10.4)
[2022-08-15 00:07] LABS: Methylmalonic Acid 121 nmol/L (87-318)
== END 2022-08-08 15:56 | disposition home or self-care (01) ==
LOC: HO.LAB 15:55
PROVIDERS: PCP Internal Medicine; Visit Provider Nurse Practitioner Family
DX: E11.42 Type 2 diabetes mellitus with diabetic polyneuropathy (principal); R41.3 Other amnesia; F09 Unspecified mental disorder due to known physiological condition; I25.10 Atherosclerotic heart disease of native coronary artery without angina pectoris
CPT/HCPCS: 36415; 82607; 82746; 83090; 83921; 85652; 86780; 99202

== ENCOUNTER → 2022-08-11 15:02 | Outpatient (BNVA) | payer OTHER, SELFPAY | PROVIDERS: PCP Internal Medicine; Visit Provider Internal Medicine Endocrinology, Diabetes & Metabolism | DX: E11.649 Type 2 diabetes mellitus with hypoglycemia without coma (principal) | CPT/HCPCS: 82947; 83036; 99212 ==

== ENCOUNTER → 2022-08-16 08:58 | Outpatient (BNVA) | payer OTHER, SELFPAY | PROVIDERS: PCP Internal Medicine; Visit Provider Registered Nurse Diabetes Educator | DX: Z71.89 Other specified counseling (principal); E11.649 Type 2 diabetes mellitus with hypoglycemia without coma; Z79.4 Long term (current) use of insulin | CPT/HCPCS: 99211 ==

== ENCOUNTER → 2022-08-24 08:54 | Outpatient (REF) | payer OTHER, SELFPAY | LOC: HO.SL 08:54 | PROVIDERS: PCP Internal Medicine; Visit Provider Nurse Practitioner Family | DX: G47.33 Obstructive sleep apnea (adult) (pediatric) (principal) | CPT/HCPCS: 95806 ==

== ENCOUNTER → 2022-08-29 10:27 | Outpatient (BNVA) | payer OTHER, SELFPAY | PROVIDERS: PCP Internal Medicine; Referring Provider Internal Medicine; Visit Provider Internal Medicine | DX: I25.10 Atherosclerotic heart disease of native coronary artery without angina pectoris (principal); E11.8 Type 2 diabetes mellitus with unspecified complications; I10 Essential (primary) hypertension | CPT/HCPCS: 93005; 99212 ==

== ENCOUNTER → 2022-08-30 08:58 | Outpatient (BNVA) | payer OTHER, SELFPAY | PROVIDERS: PCP Internal Medicine; Visit Provider Registered Nurse Diabetes Educator | DX: E11.8 Type 2 diabetes mellitus with unspecified complications (principal) | CPT/HCPCS: 99211 ==

== ENCOUNTER 2022-08-31 07:26 | Outpatient (REF) | payer OTHER, SELFPAY ==
--- NOTE | ~2022-08-31 | MR_ITS ---
EXAMINATION: MR BRAIN WITHOUT CONTRAST CLINICAL INFORMATION: Unspecified mental disorder due to known physiologic condition. COMPARISON: None available. TECHNIQUE: Multiplanar, multisequence imaging of the brain was performed without intravenous contrast. FINDINGS: There is no acute infarction, mass, hemorrhage, or extra-axial collection. The ventricles, sulci, and basilar cisterns are normal in size and configuration. Few mild nonspecific foci of T2/FLAIR hyperintensity are seen within the cerebral white matter. Incidentally noted is disc osteophyte complex at C3-C4 which, in combination with ligamentum flavum infolding results in severe spinal canal stenosis with ventral and dorsal cord deformity. The major arterial flow voids are preserved at the skull base. The orbital contents appear normal. There is minimal amount of fluid in the left mastoid. There is mild paranasal sinus mucosal thickening without fluid levels. MR/MR head/brain wo con IMPRESSION: Incidentally noted severe spinal canal stenosis at C3-C4 with ventral and dorsal cord deformity. Dedicated cervical spine MRI recommended for further evaluation. No acute intracranial abnormality. No mass. Mild nonspecific foci of T2/FLAIR hyperintensity seen within the cerebral white matter.
== END 2022-08-31 07:27 | disposition home or self-care (01) ==
LOC: HO.MRI 07:26
PROVIDERS: Visit Provider Nurse Practitioner Family
DX: F09 Unspecified mental disorder due to known physiological condition (principal); E11.649 Type 2 diabetes mellitus with hypoglycemia without coma; I10 Essential (primary) hypertension; I25.10 Atherosclerotic heart disease of native coronary artery without angina pectoris
CPT/HCPCS: 70551

== ENCOUNTER → 2022-09-26 08:58 | Outpatient (BNVA) | payer OTHER, SELFPAY | PROVIDERS: PCP Internal Medicine; Visit Provider Registered Nurse Diabetes Educator | DX: E11.8 Type 2 diabetes mellitus with unspecified complications (principal) | CPT/HCPCS: 99211 ==

== ENCOUNTER → 2022-10-17 09:33 | Outpatient (BNVA) | payer OTHER, SELFPAY | PROVIDERS: PCP Internal Medicine; Visit Provider Nurse Practitioner Family | DX: F09 Unspecified mental disorder due to known physiological condition (principal); R29.898 Other symptoms and signs involving the musculoskeletal system; M48.02 Spinal stenosis, cervical region | CPT/HCPCS: 99212 ==

== ENCOUNTER → 2022-10-30 14:54 | Outpatient (BNVA) | payer OTHER, SELFPAY | PROVIDERS: PCP Internal Medicine; Visit Provider Physician Assistant | DX: M17.11 Unilateral primary osteoarthritis, right knee (principal) | CPT/HCPCS: 99212 ==

== ENCOUNTER → 2022-10-31 08:58 | Outpatient (BNVA) | payer OTHER, SELFPAY | PROVIDERS: PCP Internal Medicine; Visit Provider Dietitian, Registered | DX: E11.649 Type 2 diabetes mellitus with hypoglycemia without coma (principal); Z71.3 Dietary counseling and surveillance | CPT/HCPCS: 97803 ==

== ENCOUNTER 2022-11-24 08:58 | Outpatient (REF) | payer OTHER, SELFPAY ==
[2022-11-24 11:07] LABS: Anion Gap 11 (12-20); Blood Urea Nitrogen 21 mg/dL (9-16); Carbon Dioxide 26 mmol/L (22-29); Chloride 106 mmol/L (96-108); Estimated Glomerular Filt Rate > 60; Glucose Random 104 mg/dL (60-115); Magnesium 2.1 mg/dL (1.6-2.6); Potassium 4.4 mmol/L (3.3-5.1); Sodium 139 mmol/L (135-145)
[2022-11-24 13:23] LABS: Free T4 (Free Thyroxine) 0.95 ng/dL (0.71-1.85); Thyroid Stimulating Hormone 1.54 uIU/mL (0.32-4.0)
== END 2022-11-24 08:59 | disposition home or self-care (01) ==
LOC: HO.LAB 08:58
PROVIDERS: PCP Internal Medicine; Visit Provider Internal Medicine Endocrinology, Diabetes & Metabolism
DX: E11.649 Type 2 diabetes mellitus with hypoglycemia without coma (principal)
CPT/HCPCS: 36415; 80048; 82947; 83036; 83735; 84439; 84443; 99212

== ENCOUNTER 2022-12-26 11:22 | Outpatient (REF) | payer MEDICARE, MEDICAID, SELFPAY ==
--- NOTE | ~2022-12-26 | MR_ITS ---
EXAMINATION: MR CERVICAL SPINE WITHOUT CONTRAST CLINICAL INFORMATION: Radiculopathy, concern for cord compression COMPARISON: CT cervical spine 03/19/2019 TECHNIQUE: MRI of the cervical spine was obtained using routine sequences without contrast. FINDINGS: Degenerative changes across the anterior atlantodental interval. The cervical lordosis is preserved. There is trace retrolisthesis of C3 on C4. Vertebral body heights are normal without acute compression fracture. No suspicious osseous lesion. Diffuse disc desiccation with mild multilevel disc height loss and mild multilevel type I Modic endplate changes. There are multilevel degenerative changes with level by level detail as follows: C2-C3: Minor uncovertebral spurring and mild facet hypertrophy. No spinal canal or neural foraminal stenosis. C3-C4: Central disc extrusion with slight superior and inferior migration, uncovertebral joint hypertrophy, and mild bilateral facet arthrosis with ligamentum flavum thickening. Severe spinal canal stenosis with cord compression and intramedullary T2 hyperintensity, which may reflect a combination of cord edema and sequelae of chronic compressive myelopathy. Severe left and moderate to severe right neural foraminal stenosis. C4-C5: Small central disc protrusion contributing to mild spinal canal stenosis with contact along the ventral cord. Minor uncovertebral spurring and mild facet hypertrophy with ligamentum flavum thickening. No neural foraminal stenosis. C5-C6: Disc osteophyte complex with superimposed right subarticular disc protrusion, uncovertebral joint hypertrophy, and mild bilateral facet hypertrophy with ligamentum flavum thickening. Mild to moderate right eccentric spinal canal stenosis with flattening along the right ventral cord. Moderate right greater than left neural foraminal stenosis. C6-C7: Small disc osteophyte complex with uncovertebral joint hypertrophy and mild bilateral facet hypertrophy. Minimal spinal canal stenosis. Moderate left and mild to moderate right neural foraminal stenosis. C7-T1: Annular disc bulge with uncovertebral spurring and mild bilateral facet hypertrophy. Mild spinal canal stenosis. Severe right and mild left neural foraminal stenosis. No epidural fluid collection, mass, or hematoma. No significant abnormalities of the paraspinal musculature. The flow voids of the major cervical vessels are maintained. The visualized intracranial structures are normal. No demonstrated abnormalities in the visualized neck. MR/MR cervical spine wo con IMPRESSION: 1. At C3-C4 a central disc extrusion with slight superior and inferior migration contributes to severe spinal canal stenosis with cord compression and intramedullary T2 hyperintensity which may reflect a combination of cord edema and sequelae of chronic compressive myelopathy. Severe left and moderate to severe right neural foraminal stenosis at this level. 2. At C5-C6 there is mild to moderate right eccentric spinal canal stenosis with flattening along the right ventral cord, moderate right greater than left neural foraminal stenosis. 3. Severe right C7-T1 and moderate left C6-C7 neural foraminal stenosis.
== END 2022-12-26 11:23 | disposition home or self-care (01) ==
LOC: HO.MRI 11:22
PROVIDERS: Visit Provider Nurse Practitioner Family
DX: M54.12 Radiculopathy, cervical region (principal); M48.02 Spinal stenosis, cervical region; R25.1 Tremor, unspecified
CPT/HCPCS: 72141

== ENCOUNTER 2023-01-02 09:00 | Outpatient (RCR) | payer MEDICARE, OTHER, MEDICAID, SELFPAY ==
--- NOTE | 2022-09-15 11:28 | MHC.PT.EP ---
[facility] [place] Office [place] [facility] [place] Office [address] [phone] F: [phone] F: [phone] F: [phone] F: [phone] Physical Therapy Plan of Care Date of Evaluation: Date of Surgery: Diagnosis: R knee osteoarthritis and R foot plantar fasciitis Assessment: Patient is a pleasant 66 y.o female who present to PT with Dx of R knee osteoarthritis and R foot plantar fasciitis, mild OA medially seen on x-ray, likely compensation caused ankle pain and plantar fasciitis to develop. She presents with antalgic gait, reduced ROM, weakness, impaired functional mobility with squats, stairs, ADLs requiring assist from LEAD C DEVELOPER. She is a good candidate for skilled PT involving patient education, home exercises, guided exercises and activities to improve aforementioned impairments. Frequency and Duration: The patient will be seen 2x/week for 4 weeks Short Term Goals: 2 weeks Patient demonstrates consistency and independence with HEP to self manage chronic condition of OA. Patient presents with increased R ankle DF 0 degrees to restore normalized gait pattern. Alf Goals: 4 weeks Patient presents with increased R knee flexion 120 degrees to be able to perform sit to stand to low surfaces. Patient presents with increased R knee extension strength 4+/5 to be able to perform reciprocal stairs Treatment Plan: Modalities to reduce pain, spasms and effusion. Manual therapy to restore motion and function. Therapeutic exercise to improve strength and flexibility. Neuromuscular re-education for posture and balance. Therapeutic activities to return to functional activities of daily living. Electronically signed by: Rodo Ponce, PT, DPT Please sign and return to therapist. Thank you for your referral.
--- NOTE | 2022-11-14 09:43 | MHC.PT.RE ---
[facility] [place] Office [place] Office [place] Office [address] Stormy Webb [address] [phone] F: [phone] F: [phone] F: [phone] F: [phone] Physical Therapy Re-evaluation Diagnosis: R knee osteoarthritis and R foot plantar fasciitis Date of Surgery: Date of Evaluation: 09/15/22 Treatments to Date: 12 Cancellations to Date: No Shows to Date: 2 Subjective: She reports having had 2/3 injections in her R foot/heel. The most recent one performed on 11/09, and the last one scheduled for next week. She reports it reduced foot pain and helps her to walk more normally but pain persists in medial knee. She would like to continue PT for her knee since her R ankle is improved after the injections as she still has difficulty with some mobility at home. Pain Score: 3 Pain Location: R knee medial Objective Measures: R knee AROM: flexion: 115 degrees pain medially extension: 0 degrees pain medially R ankle AROM: DF 2 degrees, PF 40 degrees inv 35 degrees eversion 15 degrees R knee strength MMT: flexion 4+/5 extension 4/5 pain She is able to perform reciprocal stairs with one railing, one step at a time She has pain and difficulty with squatting more than 40 degrees, uses hands to help sit to stand Gait: improved heel/toe rockers, more equal stride lengths Assessment: She presents with improved strength and ROM but still has deficits with R knee pain, limited ROM and weakness. She reports functionally still having difficulty with stair use, bending to try to shredder picker something from floor or in kitchen. She uses shower chair in bathroom. She continues to have difficulty walking longer distances to do grocery shopping. She continues with matutinal pain and stiffness. She continues with medial knee pain. Her gait has significantly improved since starting PT and also receiving injections in her foot. Recommend continued PT 2x/week for 4 weeks. Short Term Goals: 2 weeks Patient demonstrates consistency and independence with HEP to self manage chronic condition of OA. MET Patient presents with increased R ankle DF 0 degrees to restore normalized gait pattern. 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 NOT MET Patient presents with increased R knee extension strength 4+/5 to be able to perform reciprocal stairs NOT MET Frequency and Duration: The patient will be seen 2x/week for 4 weeks Treatment Plan: Therapeutic Exercise Dynamic Therapeutic Activities Neuromuscular Re-ed Manual Therapies Joint Mobilization Taping Gait Home Exercise Program Patient Education Electrical Stimulation Iontophoresis Ultrasound Hot or Cold Pack Patient education, gait training, therapeutic exercise, therapeutic activities, manual therapy, taping, modalities, neuro muscular re-education Reviewed/ Agreed with Student Documentation: Therapist: Electronically signed by: Rodo Ponce PT, DPT Please sign and return to therapist. Thank you for your referral.
--- NOTE | 2023-01-02 10:21 | MHC.PT.DC ---
[facility] [place] Office [place] Office [place] Office [address] Stormy Webb [address] [phone] F: [phone] F: [phone] F: [phone] F: [phone] Physical Therapy Discharge Report Diagnosis: R knee osteoarthritis and R foot plantar fasciitis Date of Surgery: Date of Evaluation: 09/15/22 Date of Discharge: 01/02/23 Treatments to Date: 8 Cancellations to Date: 13 No Shows to Date: 2 Discharge Status: Achieved Goals Improved Function Independent with HEP Discharge Summary: Patient has been seen for PT since 08/2022. She has independent HEP to self manage symptoms (chronic OA, questionable meniscus tear due to location of sxs)I gave her printed handout of all exercises to improve home compliance. She demonstrates improvement in ROM, strength and improved gait without AD use. Electronically signed by: Rodo Ponce, PT, DPT Please sign and return to therapist. Thank you for your referral.
== END 2023-01-02 10:21 | disposition home or self-care (01) ==
LOC: HO.PT 09:00
PROVIDERS: Visit Provider Physician Assistant
DX: M17.11 Unilateral primary osteoarthritis, right knee (principal); M72.2 Plantar fascial fibromatosis
CPT/HCPCS: 97035; 97110; 97116; 97140; 97162; 97530

== ENCOUNTER 2023-01-05 09:01 | Outpatient (REF) | payer OTHER, SELFPAY ==
--- NOTE | ~2023-01-05 | MM_ITS ---
EXAMINATION: MM SCREENING DIGITAL BREAST TOMOSYNTHESIS, BILATERAL CLINICAL INFORMATION: Screening. Asymptomatic. Prior history remote reduction mammoplasty, 1976. The lifetime risk of breast cancer based on the Tyrer-Cuzick Model is 6%. COMPARISON: Mammography: 12/21/2021, 11/15/2020, 11/06/2019 TECHNIQUE: Digital breast tomosynthesis is performed in both the craniocaudal and mediolateral oblique views along with computer-aided detection (CAD). Synthesized 2D images are generated from the tomosynthesis. FINDINGS: There are scattered areas of fibroglandular density (ACR BI-RADS breast composition Category b). There are no significant masses, abnormal calcifications, or other abnormalities. There are chronic postsurgical changes with minor scarring and benign calcifications anterior breasts consistent with the remote reduction mammoplasty. The axilla are unremarkable. No significant changes. MM/MM tomosynthesis screening BI IMPRESSION: No mammographic evidence of malignancy. ASSESSMENT: BI-RADS 2: Benign RECOMMENDATION: Routine annual mammography screening. This patient's information was entered into a reminder system with a target due date for their next mammogram.
== END 2023-01-05 09:02 | disposition home or self-care (01) ==
LOC: HO.MAMMO 09:01
PROVIDERS: PCP Internal Medicine; Visit Provider Internal Medicine
DX: Z12.31 Encounter for screening mammogram for malignant neoplasm of breast (principal)
CPT/HCPCS: 77063; 77067

== ENCOUNTER 2023-01-10 09:00 | Outpatient (RCR) | payer MEDICARE, OTHER, MEDICAID, SELFPAY | END 2023-01-10 13:23 | disposition home or self-care (01) | LOC: HO.OT 09:00 | PROVIDERS: Visit Provider Orthopaedic Surgery | DX: M79.642 Pain in left hand (principal); R60.0 Localized edema | CPT/HCPCS: 97035; 97110; 97140; 97165 ==

== ENCOUNTER 2023-01-25 13:44 | Outpatient (REF) | payer OTHER, SELFPAY ==
--- NOTE | 2023-01-25 09:00 | EMG_ITS ---
Bilateral median and ulnar motor and sensory studies were performed. Bilateral radial sensory studies were performed and paraspinal muscles were tested with a needle. IMPRESSION: 1. [id number] bilateral median neuropathy across carpal tunnel. 2. Mild bilateral ulnar neuropathy across cubital tunnel. MD OLIVIA Leiva/JAYESH / [id number]
== END 2023-01-25 13:45 | disposition home or self-care (01) ==
LOC: HO.NEURO 13:44
PROVIDERS: PCP Internal Medicine; Visit Provider Nurse Practitioner Family
DX: R29.898 Other symptoms and signs involving the musculoskeletal system (principal); M48.02 Spinal stenosis, cervical region
CPT/HCPCS: 95886; 95911

== ENCOUNTER → 2023-02-27 08:40 | Outpatient (BNVA) | payer OTHER, SELFPAY | PROVIDERS: PCP Internal Medicine; Visit Provider Internal Medicine Endocrinology, Diabetes & Metabolism | DX: E11.649 Type 2 diabetes mellitus with hypoglycemia without coma (principal) | CPT/HCPCS: 82947; 83036; 99212 ==

== ENCOUNTER → 2023-04-09 07:58 | Outpatient (BNVA) | payer OTHER, SELFPAY | PROVIDERS: PCP Internal Medicine; Visit Provider Advanced Practice Midwife | DX: Z01.419 Encounter for gynecological examination (general) (routine) without abnormal findings (principal); N95.0 Postmenopausal bleeding | CPT/HCPCS: 81003 ==

== ENCOUNTER → 2023-04-10 09:59 | Outpatient (BNVA) | payer OTHER, SELFPAY | PROVIDERS: PCP Internal Medicine; Visit Provider Dietitian, Registered | DX: E11.649 Type 2 diabetes mellitus with hypoglycemia without coma (principal) | CPT/HCPCS: 97803 ==

== ENCOUNTER 2023-05-14 10:21 | Outpatient (REF) | payer OTHER, SELFPAY ==
--- NOTE | ~2023-05-14 | US_ITS ---
EXAMINATION: US PELVIS COMPLETE CLINICAL INFORMATION: Postmenopausal bleeding COMPARISON: Pelvic ultrasound 01/06/2009 TECHNIQUE: Transabdominal imaging was performed. FINDINGS: The uterus is of normal size and echogenicity measuring 5.8 x 3.5 x 4.5 cm. The endometrium measures 0.5 cm in thickness. A 0.8 cm intramural myoma in the posterior body of the uterus. A 1.4 cm transmural myoma in the lower uterine segment. Several complex nabothian cysts in the cervix containing debris. Both ovaries are of normal size and echogenicity. The right measures 2.0 x 1.0 x 2.1 cm for a volume of 2.2 mL. The left measures 2.3 x 1.2 x 1.6 cm for a volume of 2.3 mL. There is no pelvic free fluid. US/US pelvic and transvaginal IMPRESSION: 1. Endometrium measures 0.5 cm in thickness. Recommend correlation with any symptoms of postmenopausal bleeding and gynecologic evaluation and management. 2. Few uterine myomas as detailed above. 3. Unremarkable sonographic appearance of the ovaries.
== END 2023-05-14 10:22 | disposition home or self-care (01) ==
LOC: HO.US 10:21
PROVIDERS: PCP Internal Medicine; Visit Provider Advanced Practice Midwife
DX: N95.0 Postmenopausal bleeding (principal)
CPT/HCPCS: 76830; 76856

== ENCOUNTER → 2023-05-30 09:04 | Outpatient (BNVA) | payer OTHER, SELFPAY | PROVIDERS: PCP Internal Medicine; Visit Provider Obstetrics & Gynecology | DX: Z00.00 Encounter for general adult medical examination without abnormal findings (principal) | CPT/HCPCS: 99212 ==

== ENCOUNTER 2023-06-15 09:36 | Outpatient (AMB) | payer OTHER, SELFPAY ==
--- NOTE | 2023-06-15 09:39 | MHC.PC.OV ---
Vital Signs 06/15/23 09:40 Height 5 ft 3 in BP 120/60 Blood Pressure Location Rt brachial Position Sitting Pulse 92 Pulse Source Pulse Oximeter Pulse Oximetry (%) 96 Oxygen Delivery Method Room Air Intake Visit Reasons: Ongoing back pain ~seen in [place] 05/15 Allergies No Known Allergies Allergy (Verified 06/15/23 09:42) Medication List - Last Reconciled 06/15/23 by Terrance Huitron MD [4 legged cane As directed] alcohol swabs 1 pad topical .6 times a day 30 days baclofen 10 mg PO BEDTIME 30 days blood sugar diagnostic (FreeStyle Lite Strips) As directed three times a day blood sugar diagnostic (FreeStyle Precision [place] Strips) As directed once a day cyclobenzaprine 10 mg PO BEDTIME dulaglutide (Trulicity) 1.5 mg (0.5 mL) subcut QWEEK empagliflozin (Jardiance) 25 mg PO DAILY flash glucose scanning reader (JoyusStyle Lisa 2 [place]) DIRECTED flash glucose sensor (FreeStyle Lisa 2 Sensor kit) As directed change every 2 wks fluoxetine 20 mg PO QAM gabapentin 100 mg PO BID insulin glargine (Lantus Solostar U-100 Insulin) 20 units (0.2 mL) subcut QAM insulin lispro 6 units subcut TID lancets (FreeStyle Lancets) Three times a day magnesium oxide 400 mg PO BEDTIME 30 days melatonin 10 mg PO BEDTIME PRN meloxicam 15 mg PO DAILY metformin 1,000 mg (2 x 500 mg) PO BID 30 days omeprazole 20 mg PO DAILY 90 days pen needle, diabetic (Comfort EZ Pen [place]) As directed pen needle, diabetic (Pentips) USE DIRECTED repaglinide 1 mg (2 x 0.5 mg) PO BID [shower chair Shower chair] trazodone 200 mg PO BEDTIME PRN Tobacco use date assessed: 06/15/23 Fall risk assessment: No Falls in past year Last assessed Fall Risk: 06/15/23 Dental Screening Dental Screen Date: 06/15/23 Did you have a dental visit in the last 12 months?: Yes Did you have a dental problem in the last 6 months where you did not have access to dental care?: No Was dental information given to patient?: No HPI Ongoing back pain ~seen in [place] 05/15 HPI Details Patient is a 67-year-old female came in today to be evaluated for lower back pain which started mid April after she returned from [place] Patient did a lot of fishing in [place]. She was seen in walk-in clinic on 15 of May and was prescribed cyclobenzaprine for the night and meloxicam 15 mg Daughter is with the patient today she is telling me that patient is sitting on computer chair all day looking down at her telephone. On examination patient has pain both side paraspinal lumbar I have ordered lumbar x-ray She is also complaining of concentrated foul-smelling urine we will do a urinalysis today And physical therapy to be started. She may take cyclobenzaprine 5 mg 1 in the morning and 1 in the afternoon At night patient is taking lot over the medication which are sedatives I do not think it will be appropriate to give her muscle relaxer at night. Follow-up 6 weeks [facility] Medical History Carpal tunnel syndrome Depression Diabetes 1.5, managed as type 1 Diabetes type 2, uncontrolled Diabetic polyneuropathy associated with type 2 diabetes mellitus Dyslipidemia Elevated cholesterol Hemorrhoids Hospital discharge follow-up Hypertension IDDM (insulin dependent diabetes mellitus) Incontinence Insomnia Osteopenia Panic anxiety syndrome PMB (postmenopausal bleeding) Tubal occlusion Vitamin D deficiency Surgical History H/O tubal ligation History of bladder surgery History of carpal tunnel release History of colonoscopy History of heart artery stent History of hemorrhoidectomy History of neck surgery History of surgery Hx of appendectomy Hx of breast reduction, elective S/P sinus surgery Family History Father No problems noted. Mother Heart disease Lung cancer Brother Liver cancer Brother Renal cancer HTN (hypertension) Diabetes mellitus Maternal Grandfather No problems noted. Maternal Grandmother No problems noted. Paternal Grandfather No problems noted. Paternal Grandmother No problems noted. Maternal Uncle Diabetes mellitus Paternal Uncle Diabetes mellitus Son No problems noted. Daughter No problems noted. Social History Housing: House Alcohol intake: current Alcohol intake frequency: a few times a month Patient Tobacco Use Status: Former Tobacco user Quit Date: 23 yrs ago e-Cigarette/Vaping Use: Never Used Current occupational status: disabled Current occupation: right hand dominant Sexual orientation: Straight/Heterosexual Gender identity: Female Cognitive needs: No Hearing needs: No Vision needs: Yes Questionnaire Thrive Questionnaire Date Thrive assessed: 06/07/22 AUDIT C Alcohol Use Questionnaire (AUDIT-C) 1. How often do you have a drink containing alcohol?: Never 3. How often do you have six or more drinks on one occasion?: Never Total Score: 0 Score Reviewed/Action Taken: Yes MAYA-7 AMB Questionnaire MAYA-7 Date MAYA - 7 assessed: 03/07/22 Source: Developed by Drs. Octavio Quiles, Teagan Baig, Gumaro Fernandez and colleagues, with an educational nancy from [employer]. Review of Systems Const Denies chills and Denies fever(s) ENT Denies epistaxis and Denies nasal discharge Card Denies chest pain Resp Denies chest congestion, Denies cough and Denies hemoptysis GI Denies diarrhea and Denies nausea Skin/Breast Denies rash Neuro Reports no additional complaints Psych Reports no additional complaints Endo Reports no additional complaints Physical exam (Primary Care) Vital Signs: Last Vital Signs Pulse 92 06/15/23 09:40 BP 120/60 06/15/23 09:40 Pulse Ox 96 06/15/23 09:40 Oxygen Delivery Method Room Air 06/15/23 09:40 Tobacco/Smoking Status: Tobacco use Status Tobacco use date assessed 06/15/23 06/15/23 09:44 Patient Tobacco Use Status Former Tobacco user 06/15/23 09:44 e-Cigarette/Vaping Use Never Used 06/15/23 09:44 Thrive Assessment: Date of Thrive Assessment Date Thrive assessed 06/07/22 06/15/23 09:44 Const General: cooperative, comfortable and no acute distress Orientation/consciousness: patient oriented x3 HENMT Head: Yes normocephalic Eyes General: appearance normal, both eyes and all related structures Neck Neck: Yes supple Resp Effort & Inspection: normal respiratory effort, no cough and no stridor Back/Spine/Pelvis Back/spine/pelvis image: 1. Site of back pain, straight leg negative Pain is nonradiating Skin General skin exam: turgor normal Neuro General: patient oriented x3, tone normal and moves all extremities Extrem Right lower extremity: no edema Left lower extremity: no edema Assessment and Plan Assessment & Plan (1) Low back pain: Code(s): M54.50 - Low back pain, unspecified (2) Foul smelling urine: Code(s): R82.90 - Unspecified abnormal findings in urine Plan Patient is a 67-year-old female came in today to be evaluated for lower back pain which started mid April after she returned from [place] Patient did a lot of fishing in [place]. She was seen in walk-in clinic on 15 of May and was prescribed cyclobenzaprine for the night and meloxicam 15 mg Daughter is with the patient today she is telling me that patient is sitting on computer chair all day looking down at her telephone. On examination patient has pain both side paraspinal lumbar , which is nonradiating, neuro exam is nonfocal I have ordered lumbar x-ray She is also complaining of concentrated foul-smelling urine we will do a urinalysis today And physical therapy to be started. She may take cyclobenzaprine 5 mg 1 in the morning and 1 in the afternoon At night patient is taking lot over the medication which are sedatives I do not think it will be appropriate to give her muscle relaxer at night. Follow-up 6 weeks Orders: Orders XR lumbar spine 2-3V Today M54.50 - Low back pain, unspecified UA CC w/rflx Micro + Cult Today M54.50 - Low back pain, unspecified, R82.90 - Unspecified abnormal findings in urine PT Evaluation and Treatment Today M54.50 - Low back pain, unspecified Medications: Changed From cyclobenzaprine 10 mg PO BEDTIME 14 tabs 0RF To cyclobenzaprine 1 in the morning 1 in the afternoon 5 mg PO BID 30 days 60 tabs 0RF Discontinued meloxicam Discontinued Reason: Doctor's Order 15 mg PO DAILY 14 tabs 0RF baclofen Discontinued Reason: Doctor's Order 10 mg PO BEDTIME 30 days 30 tabs 3RF Coding Level of Care Code Est Pt Level 4 (76319) Diagnoses Low back pain M54.50 Foul smelling urine R82.90
[2023-06-15 09:40] VITALS: BP 120/60; PULSE 92; O2SAT 96
== END 2023-06-15 10:46 | disposition home or self-care (01) ==
PROVIDERS: PCP Internal Medicine; Visit Provider Internal Medicine
DX: M54.50 Low back pain, unspecified (principal); R82.90 Unspecified abnormal findings in urine
CPT/HCPCS: 99214

== ENCOUNTER 2023-06-15 10:03 | Outpatient (REF) | payer OTHER, SELFPAY ==
--- NOTE | ~2023-06-15 | XR_ITS ---
EXAMINATION: XR LUMBOSACRAL SPINE CLINICAL INFORMATION: Low back pain COMPARISON: None available. TECHNIQUE: Three views of the lumbosacral spine. FINDINGS: No acute fracture. No suspicious focal lesion. No significant loss of volume. There is osteophyte throughout the mid and lower lumbar spine. There is moderate narrowing of the L4/L5 disc There is sclerosis and narrowing of the facets greatest at L4/L5 and L5/S1. This likely causes canal and foraminal narrowing. Calcifications project over the lower pelvis in the midline. This could be within the urinary bladder but is nonspecific. There is arterial calcification XR/XR lumbar spine 2-3V IMPRESSION: 1. No acute fracture or subluxation. There is moderate degenerative change. 2. Calcifications projecting over the lower pelvis are nonspecific.
[2023-06-15 14:51] LABS: Appearance Urine Clear; Color Urine Yellow; Glucose Urine UA >=1000 mg/dL (Negative); Leukocyte Esterase Urine Small (1+) (Negative); Nitrite Urine Negative (Negative); PH 5.5 (5.0-9.0); UMIC TRIGGER UACC YES; Urine Blood Negative (Negative); Urine Ketones Negative (Negative); Urine Protein Negative (Neg-Trace)
[2023-06-15 14:54] LABS: Bacteria Urine None Seen (None Seen); Hyaline Casts Urine 0-2 /LPF (0-2); RBC Urine 0-2 /HPF (0-2); Squamous Epithelial Cell Urine 0-2 /HPF (0-2); UACC Culture Trigger YES
== END 2023-06-15 10:04 | disposition home or self-care (01) ==
LOC: HO.HMGCX 10:03
PROVIDERS: PCP Internal Medicine; Visit Provider Internal Medicine
DX: M54.50 Low back pain, unspecified (principal); R82.90 Unspecified abnormal findings in urine
CPT/HCPCS: 72100; 81001; 87086; 87147

== ENCOUNTER 2023-07-04 11:02 | Outpatient (AMB) | payer OTHER, SELFPAY ==
--- NOTE | 2023-07-04 11:03 | MHC.OFFVIS ---
Intake Vital Signs 07/04/23 11:04 Height 5 ft 3 in Weight 158 lb BMI 28.0 BP 114/60 Intake Visit Reasons: ultrasound follow up Intake Note: The patient agreed to use of a medical physics researcher during this encounter. Scribed for RONAK Lockwood by Beba Tejada medical physics researcher, on 07/04/2023 at 11:17 am EST. Bow Maker Gift Wrapping Required: Yes Bow Maker Gift Wrapping Language: Clay Caster Name: Gisele Information Interpreted: non-clinical & clinical Allergies No Known Allergies Allergy (Verified 07/04/23 11:04) HPI HPI Comments History of Present Illness Details She is here to discuss US results regarding blood while wiping. Denies seeing any recent blood while wiping. Currently sexually active. Denies any blood in urine when she last seen Urologist. Reports scarring in the bladder. HX of EMB in 2010. [facility] Medical History Carpal tunnel syndrome Depression Diabetes 1.5, managed as type 1 Diabetes type 2, uncontrolled Diabetic polyneuropathy associated with type 2 diabetes mellitus Dyslipidemia Elevated cholesterol Fibroids Hemorrhoids Hospital discharge follow-up Hypertension IDDM (insulin dependent diabetes mellitus) Incontinence Insomnia Osteopenia Panic anxiety syndrome PMB (postmenopausal bleeding) Tubal occlusion Vitamin D deficiency Surgical History H/O tubal ligation History of bladder surgery History of carpal tunnel release History of colonoscopy History of heart artery stent History of hemorrhoidectomy History of neck surgery History of surgery Hx of appendectomy Hx of breast reduction, elective S/P sinus surgery Family History Father No problems noted. Mother Heart disease Lung cancer Brother Liver cancer Brother Renal cancer HTN (hypertension) Diabetes mellitus Maternal Grandfather No problems noted. Maternal Grandmother No problems noted. Paternal Grandfather No problems noted. Paternal Grandmother No problems noted. Maternal Uncle Diabetes mellitus Paternal Uncle Diabetes mellitus Son No problems noted. Daughter No problems noted. Social History Housing: House Alcohol intake: current Alcohol intake frequency: a few times a month Patient Tobacco Use Status: Former Tobacco user Quit Date: 23 yrs ago e-Cigarette/Vaping Use: Never Used Current occupational status: disabled Current occupation: right hand dominant Sexual orientation: Straight/Heterosexual Gender identity: Female Cognitive needs: No Hearing needs: No Vision needs: Yes Physical Exam Vital Signs: Last Vital Signs BP 114/60 07/04/23 11:04 BMI result Body Mass Index 28.0 Const General: cooperative, healthy appearing, comfortable, no acute distress, well developed, alert and awake Results Reviewed Results Reviewed: EXAMINATION: US PELVIS COMPLETE CLINICAL INFORMATION: Postmenopausal bleeding COMPARISON: Pelvic ultrasound 01/06/2009 TECHNIQUE: Transabdominal imaging was performed. FINDINGS: The uterus is of normal size and echogenicity measuring 5.8 x 3.5 x 4.5 cm. The endometrium measures 0.5 cm in thickness. A 0.8 cm intramural myoma in the posterior body of the uterus. A 1.4 cm transmural myoma in the lower uterine segment. Several complex nabothian cysts in the cervix containing debris. Both ovaries are of normal size and echogenicity. The right measures 2.0 x 1.0 x 2.1 cm for a volume of 2.2 mL. The left measures 2.3 x 1.2 x 1.6 cm for a volume of 2.3 mL. There is no pelvic free fluid. US/US pelvic and transvaginal IMPRESSION: 1.? Endometrium measures 0.5 cm in thickness. Recommend correlation with any symptoms of postmenopausal bleeding and gynecologic evaluation and management. 2.? Few uterine myomas as detailed above. 3.? Unremarkable sonographic appearance of the ovaries. ? Assessment & Plan Assessment & Plan (1) Encounter to discuss test results: Code(s): Z71.2 - Person consulting for explanation of examination or test findings Plan: Discussed: Us findings of : Fibroids and Endometrium thickening. All of her questions and concerns were addressed to the best of my ability and shared decision making. She is agreeable to plan of care. (2) Fibroids: Code(s): D21.9 - Benign neoplasm of connective and other soft tissue, unspecified Plan: Leiomyoma: common pelvic neoplasm. Recommend EMB. Patient prefers to schedule EMB. The EMB purpose was explained to rule out atypia, hyperplasia and uterine cancer. Reviewed procedure and instructed to take ibuprofen with food 1 hour prior to procedure. Go to ER with any prolonged or heavy bleeding. All of her questions and concerns were addressed to the best of my ability and shared decision making: for EMBx. She is agreeable to plan of care. Coding Level of Care Code Est Pt Level 3 (47820) Diagnoses Encounter to discuss test results Z71.2 Fibroids D21.9
[2023-07-04 11:04] VITALS: BP 114/60; BMI 28.0
== END 2023-07-04 12:32 | disposition home or self-care (01) ==
LOC: HO.HWS 11:02
PROVIDERS: PCP Internal Medicine; Visit Provider Advanced Practice Midwife
DX: Z71.2 Person consulting for explanation of examination or test findings (principal); D21.9 Benign neoplasm of connective and other soft tissue, unspecified
CPT/HCPCS: 99213

== ENCOUNTER → 2023-07-04 11:02 | Outpatient (BNVA) | payer OTHER, SELFPAY | PROVIDERS: PCP Internal Medicine; Visit Provider Advanced Practice Midwife | DX: Z71.2 Person consulting for explanation of examination or test findings (principal); D21.9 Benign neoplasm of connective and other soft tissue, unspecified | CPT/HCPCS: 99212 ==

== ENCOUNTER 2023-08-03 10:24 | Outpatient (AMB) | payer OTHER, SELFPAY ==
--- NOTE | 2023-08-03 10:05 | A.OFFPC_ITS ---
Vital Signs 3 08/03/23 10:30 Height 5 ft 3 in Weight 156 lb BMI 27.6 BP 110/56 L Blood Pressure Location Lt brachial Position Sitting Pulse 87 Pulse Source Pulse Oximeter Pulse Oximetry (%) 97 Oxygen Delivery Method Room Air Intake Visit Reasons: 6 week fu Allergies No Known Allergies Allergy (Verified 08/03/23 10:26) Medication List - Last Reconciled 08/03/23 by Terrance Huitron MD alcohol swabs 1 pad topical .6 times a day 30 days blood sugar diagnostic (FreeStyle Lite Strips) As directed three times a day blood sugar diagnostic (FreeStyle Precision [place] Strips) As directed once a day cyclobenzaprine 5 mg PO BID 30 days dulaglutide (Trulicity) 1.5 mg (0.5 mL) subcut QWEEK empagliflozin (Jardiance) 25 mg PO DAILY flash glucose scanning reader (FreeStyle Lisa 2 Center [place]) DIRECTED flash glucose sensor (FreeStyle Lisa 2 Sensor kit) As directed change every 2 wks gabapentin 100 mg PO BID insulin glargine (Lantus Solostar U-100 Insulin) 20 units (0.2 mL) subcut QAM insulin lispro 6 units subcut TID lancets (FreeStyle Lancets) Three times a day magnesium oxide 400 mg PO BEDTIME 30 days melatonin 10 mg PO BEDTIME PRN metformin 1,000 mg (2 x 500 mg) PO BID 30 days omeprazole 20 mg PO DAILY 90 days pen needle, diabetic (Comfort EZ Pen [place]) As directed pen needle, diabetic (Pentips) USE DIRECTED [shower chair Shower chair] trazodone 200 mg PO BEDTIME PRN Tobacco use date assessed: 08/03/23 Fall risk assessment: No Falls in past year Last assessed Fall Risk: 08/03/23 Dental Screening Dental Screen Date: 08/03/23 Did you have a dental visit in the last 12 months?: Yes Did you have a dental problem in the last 6 months where you did not have access to dental care?: No Was dental information given to patient?: Patient has dentist HPI 6 week fu 2 HPI0 Details Patient is 67-year-old female with a history of type 2 insulin- dependent diabetes, insomnia, anxiety, major depression, acute on chronic lower back pain. Patient came in today for follow-up appointment on her lower back pain X-ray lumbar spine showed 1. No acute fracture or subluxation. Th ere is moderate degenerative change. 2. Calcifications projecting over the l ower pelvis are nonspecific. She was treated with muscle relaxer After seeing me last patient has seen [facility] , note dated 07/02/2023 reviewed That visit was for preop clearance for right-sided trigger finger release ring Patient had surgery 07/09/2023 and then ended up having infection right palm and right finger which was drained by Dr Rojas She was then re-evaluated on 07/20/2023 in emergency room for reoccurring infection again That time after incision and drainage she was given intravenous antibiotic She is currently going through physical therapy On examination her range of motion right ring finger is limited however infection has resolved she does have some scarring on her pump Back pain is better Other provided patient is seeing our [facility] Neurology [facility] for chronic neck pain Dr. Marie endocrinology [facility] for the management of diabetes Orthopedic [facility] for osteoarthritis knees Dr. Fan cardiology [facility] Patient is also seeing psychiatrist for major depression [facility] Medical History Fibroids PMB (postmenopausal bleeding) Osteopenia Dyslipidemia Diabetic polyneuropathy associated with type 2 diabetes mellitus Diabetes type 2, uncontrolled Diabetes 1.5, managed as type 1 Panic anxiety syndrome Hospital discharge follow-up Vitamin D deficiency Carpal tunnel syndrome Incontinence Hemorrhoids Tubal occlusion Insomnia Elevated cholesterol Depression Hypertension IDDM (insulin dependent diabetes mellitus) Surgical History History of neck surgery History of surgery History of colonoscopy History of hemorrhoidectomy History of carpal tunnel release History of bladder surgery S/P sinus surgery Hx of breast reduction, elective Hx of appendectomy H/O tubal ligation History of heart artery stent Family History Father No problems noted. Mother Heart disease Lung cancer Brother Liver cancer Brother Renal cancer HTN (hypertension) Diabetes mellitus Maternal Grandfather No problems noted. Maternal Grandmother No problems noted. Paternal Grandfather No problems noted. Paternal Grandmother No problems noted. Maternal Uncle Diabetes mellitus Paternal Uncle Diabetes mellitus Son No problems noted. Daughter No problems noted. Social History Housing: House Alcohol intake: current Alcohol intake frequency: a few times a month Patient Tobacco Use Status: Former Tobacco user Quit Date: 23 yrs ago e-Cigarette/Vaping Use: Never Used service: No Current occupational status: disabled Current occupation: right hand dominant Sexual orientation: Straight/Heterosexual Gender identity: Female Cognitive needs: No Hearing needs: No Vision needs: Yes Questionnaire PHQ-9 Over the last 2 weeks, how often have you been bothered by any of the following problems? 1. Little interest or pleasure in doing things: several days 2. Feeling down, depressed, or hopeless: more than half the days 3. Trouble falling or staying asleep, or sleeping too much: more than half the days 4. Feeling tired or having little energy: several days 5. Poor appetite or overeating: not at all 6. Feeling bad about yourself - or that you are a failure or have let yourself or your family down: more than half the days 7. Trouble concentrating on things, such as reading the newspaper or watching television: nearly every day 8. Moving or speaking so slowly that other people could have noticed. Or the opposite - being so fidgety or restless that you have been moving around a lot more than usual: several days 9. Thoughts that you would be better off or of hurting yourself in some way: not at all Total score: 12 Depression Screening Interpretation: Negative 15460 - PHQ-9 Billing: Yes Source: Developed by Drs. Octavio Quiles, Teagan Baig, Gumaro Fernandez and colleagues, with an educational nancy from [employer]. Thrive Questionnaire Date Thrive assessed: 08/03/23 I am a: Patient What is your living situation today?: I have a steady place to live Within the past 12 months, did the food you bought not last and you didn't have the money to get more?: Never true Within the past 12 months, did you worry whether your food would run out before you got money to buy more?: Never true Do you have trouble paying for medicines?: No Do you have trouble getting transportation to medical appointments?: No Do you have trouble paying your heating and electricity bill?: No Do you have trouble taking care of your child, family member or friend?: No Do you have trouble with day-to-day activities such as bathing, preparing meals, shopping, managing finances, etc.?: No Are you currently unemployed and looking for a job?: No Are you interested in more education?: No Currently or been in a relationship where the following occur: no concerns reported AUDIT C Alcohol Use Questionnaire (AUDIT-C) 1. How often do you have a drink containing alcohol?: Never 3. How often do you have six or more drinks on one occasion?: Never Total Score: 0 Score Reviewed/Action Taken: Yes MAYA-7 AMB Questionnaire MAYA-7 Date MAYA - 7 assessed: 08/03/23 Feeling nervous, anxious, or on edge: 2 = More than half the days Not being able to stop or control worryin = Several days Worrying too much about different things: 1 = Several days Trouble relaxin = Several days Being so restless that it is hard to sit still: 1 = Several days Becoming easily annoyed or irritable: 1 = Several days Feeling afraid as if something awful might happen: 1 = Several days Total MAYA-7 score (0-4 normal; 5-9 mild; 10-14 moderate; 15-21 severe): 8 Source: Developed by Drs. Octavio Quiles, Teagan Baig, Gumaro Fernandez and colleagues, with an educational nancy from [employer]. MAYA-7 Assessment Billing MAYA-7 Assessment Tool: MAYA-7 Assessment 25248 Review of Systems Const Denies chills and Denies fever(s) ENT Denies epistaxis and Denies nasal discharge Card Denies chest pain Resp Denies chest congestion, Denies cough and Denies hemoptysis GI Denies diarrhea and Denies nausea Skin/Breast Denies rash Neuro Reports no additional complaints Psych Reports no additional complaints Endo Reports no additional complaints Physical exam (Primary Care) Vital Signs: Last Vital Signs Pulse 87 08/03/23 10:30 BP 110/56 L 08/03/23 10:30 Pulse Ox 97 08/03/23 10:30 Oxygen Delivery Method Room Air 08/03/23 10:30 BMI result Body Mass Index 27.6 Tobacco/Smoking Status: Tobacco use Status Tobacco use date assessed 08/03/23 08/03/23 10:27 Patient Tobacco Use Status Former Tobacco user 08/03/23 10:05 e-Cigarette/Vaping Use Never Used 08/03/23 10:05 PHQ-9: PHQ-9 Score PHQ-9: Total score 12 08/03/23 10:48 Depression Screening Interpretation: Negative Thrive Assessment: Date of Thrive Assessment Date Thrive assessed 08/03/23 08/03/23 10:48 Currently or been in a relationship where the following occur: no concerns reported Const General: cooperative, comfortable and no acute distress Orientation/consciousness: patient oriented x3 HENMT Head: Yes normocephalic Eyes General: appearance normal, both eyes and all related structures Neck Neck: Yes supple Resp Effort & Inspection: normal respiratory effort, no cough and no stridor Cardio Rhythm: regular rhythm Heart sounds: S1 normal heart sound present and S2 normal heart sound present Skin General skin exam: turgor normal Neuro General: patient oriented x3, tone normal and moves all extremities Extrem Hand/finger images: 2 1. Limited range of motion slightly flexed finger 2. Scarring Right lower extremity: no edema Left lower extremity: no edema Assessment and Plan Assessment & Plan (1) Major depression, recurrent: Code(s): F33.9 - Major depressive disorder, recurrent, unspecified Qualifiers: Active/Remission status: in partial remission Qualified Code(s): F33.41 - Major depressive disorder, recurrent, in partial remission (2) Diabetic polyneuropathy associated with type 2 diabetes mellitus: Code(s): E11.42 - Type 2 diabetes mellitus with diabetic polyneuropathy (3) Diabetes 1.5, managed as type 1: Code(s): E13.9 - Other specified diabetes mellitus without complications (4) Cervical radiculopathy: Code(s): M54.12 - Radiculopathy, cervical region (5) Essential hypertension: Code(s): I10 - Essential (primary) hypertension (6) Difficulty sleeping: Comment: w/ snoring, h/o TRISTON, excessive daytime tiredness, ESS 12 Code(s): G47.9 - Sleep disorder, unspecified (7) Osteoarthritis of right knee: Code(s): M17.11 - Unilateral primary osteoarthritis, right knee Qualifiers: Osteoarthritis type: primary Qualified Code(s): M17.11 - Unilateral primary osteoarthritis, right knee (8) Cervical spinal stenosis: Code(s): M48.02 - Spinal stenosis, cervical region (9) Trigger finger, right ring finger: Code(s): M65.341 - Trigger finger, right ring finger Plan Patient is 67-year-old female with a history of type 2 insulin-dependent diabetes, insomnia, anxiety, major depression, acute on chronic lower back pain. Patient came in today for follow-up appointment on her lower back pain X-ray lumbar spine showed 1. No acute fracture or subluxation. There is moderate degenerative change. 2. Calcifications projecting over the lower pelvis are nonspecific. She was treated with muscle relaxer After seeing me last patient has seen [facility] , note dated 07/02/2023 reviewed That visit was for preop clearance for right-sided trigger finger release ring Patient had surgery 07/09/2023 and then ended up having infection right palm and right finger which was drained by Dr Rojas She was then re-evaluated on 07/20/2023 in emergency room for reoccurring infection again That time after incision and drainage she was given intravenous antibiotic She is currently going through physical therapy On examination her range of motion right ring finger is limited however infection has resolved she does have some scarring on her pump Back pain is better Other provided patient is seeing our [facility] Neurology [facility] for chronic neck pain Dr. Marie endocrinology [facility] for the management of diabetes Orthopedic [facility] for osteoarthritis knees Dr. Fan cardiology [facility] Patient is also seeing psychiatrist for major depression Coding Level of Care Code Est Pt Level 4 (45294) Diagnoses Recurrent major depressive disorder, in partial remission F33.41 Active/Remission status: in partial remission Diabetic polyneuropathy associated with type 2 diabetes mellitus E11.42 Diabetes 1.5, managed as type 1 E13.9 Cervical radiculopathy M54.12 Essential hypertension I10 Difficulty sleeping G47.9 Primary osteoarthritis of right knee M17.11 Osteoarthritis type: primary Cervical spinal stenosis M48.02 Trigger finger, right ring finger M65.341 Additional Codes MAYA-7 Assessment Billing - MAYA-7 Assessment Tool: MAYA-7 Assessment [id number] ([id number])
[2023-08-03 10:30] VITALS: BP 110/56; PULSE 87; O2SAT 97; BMI 27.6
== END 2023-08-03 12:26 | disposition home or self-care (01) ==
PROVIDERS: PCP Internal Medicine; Visit Provider Internal Medicine
DX: E11.42 Type 2 diabetes mellitus with diabetic polyneuropathy (principal); F33.41 Major depressive disorder, recurrent, in partial remission; I10 Essential (primary) hypertension; M54.12 Radiculopathy, cervical region; G47.9 Sleep disorder, unspecified; M17.11 Unilateral primary osteoarthritis, right knee; M48.02 Spinal stenosis, cervical region; M65.341 Trigger finger, right ring finger
CPT/HCPCS: 99214

== ENCOUNTER 2023-08-22 09:00 | Outpatient (RCR) | payer OTHER, SELFPAY ==
--- NOTE | 2023-07-03 13:22 | MHC.PT.EP ---
[facility] [place] Office [place] Office [place] Office [address]licia Webb [address] [phone] F: [phone] F: [phone] F: [phone] F: [phone] Physical Therapy Plan of Care Date of Evaluation: Date of Surgery: Diagnosis: Low back pain Assessment: Pt is a 67 y/o female with DM and HTN presenting to physical therapy with referral for LBP. Pt has difficulty with ADLs, sitting for duration, lumbar flexion activities, walking for duration and self-care activities, secondary to low back joint stiffness, decreased lumbar ROM, hamstring tightness, decreased core and hip strength, and pain. Pt is deemed an appropriate candidate for skilled PT services as she is highly motivated to decrease her pain and increase her tolerance for functional activities. Frequency and Duration: The patient will be seen 2x/wk x5wks Short Term Goals: Initiate HEP Decrease pain to at least <3/10; Initial: 4/10 [facility] Goals: Topmost with HEP Pt will be able to sit as long as she'd like given choice of seat; Initial: pain prevents pt from sitting >1hr Pt will be able achieve >50% lumbar flexion without pain; Initial: 25% painful Pt will improve Mari by at least 9 points in order to demonstrate improved functional tolerance. Treatment Plan: Modalities to reduce pain, spasms and effusion. Manual therapy to restore motion and function. Therapeutic exercise to improve strength and flexibility. Neuromuscular re-education for posture and balance. Therapeutic activities to return to functional activities of daily living. Electronically signed by: Sukhwinder Tang PT Please sign and return to therapist. Thank you for your referral.
--- NOTE | 2023-08-22 10:57 | MHC.PT.DC ---
[facility] [place] Office [place] Office [place] Office [address] Stormy Webb 140 [facility] [phone] F: [phone] F: [phone] F: [phone] F: [phone] Physical Therapy Discharge Report Diagnosis: Low back pain Date of Surgery: Date of Evaluation: 07/03/23 Date of Discharge: 08/22/23 Treatments to Date: 9 Cancellations to Date: No Shows to Date: Discharge Status: Achieved Goals Improved Function Independent with HEP Discharge Summary: Emma has been an active participant in her therapy with good home program compliance. We are in agreement with DC today as she has met all of her therapeutic goals, is improved of her initial symptoms, and is independent in her home program for self management. Electronically signed by: Sukhwinder Tang PT Please sign and return to therapist. Thank you for your referral.
== END 2023-08-22 10:57 | disposition home or self-care (01) ==
LOC: HO.PTCHIC 09:00
PROVIDERS: PCP Internal Medicine; Visit Provider Internal Medicine
DX: M54.50 Low back pain, unspecified (principal)
CPT/HCPCS: 97110; 97140; 97161

== ENCOUNTER 2023-08-28 08:57 | Outpatient (AMB) | payer OTHER, SELFPAY ==
--- NOTE | 2023-08-28 08:59 | MHC.OFFVIS ---
Intake Vital Signs 08/28/23 09:00 Height 5 ft 3 in Weight 159 lb 6.307 oz BMI 28.2 BP 128/62 Blood Pressure Location Lt brachial Pulse 103 H Pulse Source Pulse Oximeter Intake Visit Reasons: DM, CONFIRMED Intake Note: Patient presents today to follow up on Type 2 Diabetes Mellitus. Patient receives DME supplies through: Last Diabetic Eye exam: April 2023 Last Podiatry Visit: None Random Glucose: 184 mg/dl HgA1C:5.5% Inspector Crystal Required: Yes Inspector Crystal Language: Tamazight Information Interpreted: non-clinical & clinical Accompanied by: Self / Same As Patient Allergies No Known Allergies Allergy (Verified 08/28/23 09:06) HPI HPI Comments History of Present Illness Details Patient is a 67-year-old female with DM type 2 diagnosed , referred by who presents for management of diabetes. Past medical history: Diabetes type 2, hypertension, hyperlipidemia, osteopenia, sleep apnea, carpal tunnel syndrome. 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 saw optho 05/2023 Other specialists: cardiology Laboratory Tests C/O cramps in lower extremities on a daily basis as well as tingling and numbness in the upper and lower extremities 12/15/21 03/06/22 03/06/22 09:21 08:25 08:27 Creatinine 0.86 Estimated GFR > 60 Hgb A1c (Clinic) 7.4 H Triglycerides 182 Cholesterol 208 D LDL Cholesterol Di rect LDL Cholesterol, C alc 136 HDL Cholesterol 36 25-OH Vitamin D To iron 39.9 Microalb/Creat Rat io 12.9 03/06/22 08:27 Creatinine Estimated GFR Hgb A1c (Clinic) Triglycerides Cholesterol LDL Cholesterol Di rect 154 H LDL Cholesterol, C alc HDL Cholesterol 25-OH Vitamin D To iron Microalb/Creat Rat io 04/13/21 04/13/2121 09:20 10:05 10:05 Creatinine 0.98 Estimated GFR 57 Hgb A1c (Clinic) 5.6 Triglycerides 71 Cholesterol 126 LDL Cholesterol Di rect 65 LDL Cholesterol, C alc 67 HDL Cholesterol 45 TSH 1.37 Free T4 1.00 Microalb/Creat Rat io 04/13/21 10:05 Creatinine Estimated GFR Hgb A1c (Clinic) Triglycerides Cholesterol LDL Cholesterol Di rect LDL Cholesterol, C alc HDL Cholesterol TSH Free T4 Microalb/Creat Rat io 6.0 PFSH Medical History Fibroids PMB (postmenopausal bleeding) Osteopenia Dyslipidemia Diabetic polyneuropathy associated with type 2 diabetes mellitus Diabetes type 2, uncontrolled Diabetes 1.5, managed as type 1 Panic anxiety syndrome Hospital discharge follow-up Vitamin D deficiency Carpal tunnel syndrome Incontinence Hemorrhoids Tubal occlusion Insomnia Elevated cholesterol Depression Hypertension IDDM (insulin dependent diabetes mellitus) Surgical History History of neck surgery History of surgery History of colonoscopy History of hemorrhoidectomy History of carpal tunnel release History of bladder surgery S/P sinus surgery Hx of breast reduction, elective Hx of appendectomy H/O tubal ligation History of heart artery stent Family History Father No problems noted. Mother Heart disease Lung cancer Brother Liver cancer Brother Renal cancer HTN (hypertension) Diabetes mellitus Maternal Grandfather No problems noted. Maternal Grandmother No problems noted. Paternal Grandfather No problems noted. Paternal Grandmother No problems noted. Maternal Uncle Diabetes mellitus Paternal Uncle Diabetes mellitus Son No problems noted. Daughter No problems noted. Social History Housing: House Alcohol intake: current Alcohol intake frequency: a few times a month Patient Tobacco Use Status: Former Tobacco user Quit Date: 23 yrs ago e-Cigarette/Vaping Use: Never Used service: No Current occupational status: disabled Current occupation: right hand dominant Sexual orientation: Straight/Heterosexual Gender identity: Female Cognitive needs: No Hearing needs: No Vision needs: Yes Physical Exam Vital Signs: Last Vital Signs Pulse 103 H 08/28/23 09:00 BP 128/62 08/28/23 09:00 BMI result Body Mass Index 28.2 Absence of Cushingoid features. Absence of acromegalic features. Neck exam reveals nl size thyroid about 15 gms. No thyroid nodules palpable. No carotid bruits present. Lungs CTA. Heart S1 S2, Reg R/R. No M/R/ G. Skin exam reveals absence of vitiligo or acanthosis nigricans. Abdominal exam reveals Soft NT/ND with NA BS. No organomegaly present. Neck Other: . Extrem Other: Visual exam of foot performed. No ulcerations or open lesions. No onchomycosis, no callouses.Pulses 2 + distally Sensation intact to monofilament exam. Vibratory sensation sensed is intact with 128 Hz tuning fork Results AMB Hemoglobin A1c AMB Hemoglobin A1c 5.5 % Last Edit by Antionette Novoa on 08/28/23 09:25 Results Reviewed Results Reviewed: 08/28/23 09:11 Glucose, Whole Blood Routine Laboratory Last Values Glucose (Clinic) 184 mg/dL (60-115) H 08/28/23 09:11 Assessment & Plan Assessment & Plan (1) Diabetes type 2, uncontrolled: Code(s): E11.65 - Type 2 diabetes mellitus with hyperglycemia Qualifiers: Coma presence: without coma Glycemic state: with hypoglycemia Qualified Code(s): E11.649 - Type 2 diabetes mellitus with hypoglycemia without coma Plan: This 66-year-old female history of type 2 diabetes being treated with metformin, Invokana, Trulicity and basal-bolus insulin with excellent improved glycemic control and known microvascular and macrovascular complications namely diabetic neuropathy and CAD. Plan is to continue the current therapy . At this point, patient can follow up with primary care provider the returned back to endocrinology should HbA1c deteriorate Orders: Orders AMB Hemoglobin A1c Today E11.649 - Type 2 diabetes mellitus with hypoglycemia without coma Coding Level of Care Code Est Pt Level 4 (34166) Diagnoses Uncontrolled type 2 diabetes mellitus with hypoglycemia without coma E11.649 Coma presence: without coma Glycemic state: with hypoglycemia
[2023-08-28 09:00] VITALS: BP 128/62; PULSE 103; BMI 28.2
[2023-08-28 09:16] LABS: Glucose, Whole Blood 184 mg/dL (60-115)
== END 2023-08-28 09:23 | disposition home or self-care (01) ==
PROVIDERS: PCP Internal Medicine; Referring Provider Internal Medicine; Visit Provider Internal Medicine Endocrinology, Diabetes & Metabolism
DX: E11.649 Type 2 diabetes mellitus with hypoglycemia without coma (principal)
CPT/HCPCS: 99214

== ENCOUNTER → 2023-08-28 08:57 | Outpatient (BNVA) | payer OTHER, SELFPAY | PROVIDERS: Visit Provider Internal Medicine Endocrinology, Diabetes & Metabolism | DX: E11.649 Type 2 diabetes mellitus with hypoglycemia without coma (principal); Z79.4 Long term (current) use of insulin | CPT/HCPCS: 82947; 83036; 99212 ==

== ENCOUNTER 2023-09-07 10:43 | Outpatient (AMB) | payer OTHER, SELFPAY ==
[2023-09-07 10:54] VITALS: BP 132/62; BMI 28.1
--- NOTE | 2023-09-07 10:54 | A.OFFVIS_ITS ---
Intake Vital Signs 09/07/23 10:54 Height 5 ft 3 in Weight 158 lb 11.725 oz BMI 28.1 BP 132/62 Intake Visit Reasons: EMB Intake Note: The patient agreed to use of a medical examiner during this encounter. Scribed for RONAK Lockwood by Beba Tejada medical examiner, on 09/07/2023 at 11:10 am EST. Audio Visual Manager Required: Yes Audio Visual Manager Language: Visual Presentation Manager Name: Gisele CENTENO Information Interpreted: non-clinical & clinical Plant Technical Specialist: Plant Technical Specialist Present (Gisele CENTENO) Accompanied by: Self / Same As Patient Allergies No Known Allergies Allergy (Verified 09/07/23 10:55) Post menopausal: Yes HPI HPI Comments History of Present Illness Details She is here for EMB and to discuss US results regarding PMB. Denies ant VB today. EMBx today. See procedure note. PFSH Medical History Fibroids PMB (postmenopausal bleeding) Osteopenia Dyslipidemia Diabetic polyneuropathy associated with type 2 diabetes mellitus Diabetes type 2, uncontrolled Diabetes 1.5, managed as type 1 Panic anxiety syndrome Hospital discharge follow-up Vitamin D deficiency Carpal tunnel syndrome Incontinence Hemorrhoids Tubal occlusion Insomnia Elevated cholesterol Depression Hypertension IDDM (insulin dependent diabetes mellitus) Surgical History History of neck surgery History of surgery History of colonoscopy History of hemorrhoidectomy History of carpal tunnel release History of bladder surgery S/P sinus surgery Hx of breast reduction, elective Hx of appendectomy H/O tubal ligation History of heart artery stent Family History Father No problems noted. Mother Heart disease Lung cancer Brother Liver cancer Brother Renal cancer HTN (hypertension) Diabetes mellitus Maternal Grandfather No problems noted. Maternal Grandmother No problems noted. Paternal Grandfather No problems noted. Paternal Grandmother No problems noted. Maternal Uncle Diabetes mellitus Paternal Uncle Diabetes mellitus Son No problems noted. Daughter No problems noted. Social History Housing: House Alcohol intake: current Alcohol intake frequency: a few times a month Patient Tobacco Use Status: Former Tobacco user Quit Date: 23 yrs ago e-Cigarette/Vaping Use: Never Used service: No Current occupational status: disabled Current occupation: right hand dominant Sexual orientation: Straight/Heterosexual Gender identity: Female Cognitive needs: No Hearing needs: No Vision needs: Yes Physical Exam Vital Signs: Last Vital Signs BP 132/62 09/07/23 10:54 BMI result Body Mass Index 28.1 Const General: cooperative, healthy appearing, comfortable, no acute distress, well developed, alert and awake Other: General: Yes bladder normal to palpation External Female Exam: normal external appearance and normal appearance of the urethra Speculum Exam - Vagina: normal appearance of the vagina, normal palpation and normal vaginal discharge Speculum Exam - Cervix: normal appearance of the cervix and normal palpation Bimanual exam- vagina & uterus: normal bimanual exam, normal palpation, bladder normal to palpation and normal palpation Bimanual Exam- Adnexa, other: normal adnexae and no masses Office Procedures Endometrial Biopsy Details: HPI The patient is here today for an endometrial biopsy for PMB to rule out any pathology including atypical, hyperplasia or cancer cells of the uterus. She was counseled regarding anticipatory guidance for the procedure including the risks for pain, infection, bleeding, perforation, potential injury to the tissues may include the cervix, uterus, tubes, bladder and bowels. These injuries may include further treatment and evaluation including surgery, blood transfusions, antibiotics, hospitalizations and anesthesia. Permanent injury and scarring can occur. She was consented for the procedure, and the consent forms were signed. She is agreeable to have the procedure today. All questions were answered. Endometrial Biopsy Procedure The patient was placed in the dorsal lithotomy position and a sterile speculum inserted. Using aseptic technique for the procedure. The cervix was cleansed with Betadine x 3 swabs A single toothed tenaculum was placed on the cervix for stabilization and the uterus was sounded to 6 cm with a 4mm pipelle for 3 passes. Minimal bleeding was observed. The patient tolerated the procedure well and was in good condition when leaving the department. The tissue sample was placed in formalin in a patient labeled container by staff assisting and sent to the pathology department for processing and interpretation. The patient tolerated the procedure well. Endometrial Biopsy Post Procedure Care Nothing in the vagina including: tampons, douching or sex for 14 days. There may be some post procedure bleeding for several days, this bleeding is usually light and may turn to a light brown or pink color. Mild cramps may occur. You may take an over the counter mild analgesic such as Tylenol or Advil (if no allergies) per the manufacturers recommendation on dosing, frequency, and follow the directions completely. Call the office if any: SOB, fatigue, lightheadedness/dizziness, abd pain (worse than cramping), bloating or abd distention, foul odor or abnormal discharge or heavy vaginal bleeding. Scheduled for a follow up visit for results, either in person or on the phone when the results are completed in a few weeks. [id number] Biopsy Results Reviewed Results Reviewed: EXAMINATION: US PELVIS COMPLETE CLINICAL INFORMATION: Postmenopausal bleeding COMPARISON: Pelvic ultrasound 01/06/2009 TECHNIQUE: Transabdominal imaging was performed. FINDINGS: The uterus is of normal size and echogenicity measuring 5.8 x 3.5 x 4.5 cm. The endometrium measures 0.5 cm in thickness. A 0.8 cm intramural myoma in the posterior body of the uterus. A 1.4 cm transmural myoma in the lower uterine segment. Several complex nabothian cysts in the cervix containing debris. Both ovaries are of normal size and echogenicity. The right measures 2.0 x 1.0 x 2.1 cm for a volume of 2.2 mL. The left measures 2.3 x 1.2 x 1.6 cm for a volume of 2.3 mL. There is no pelvic free fluid. US/US pelvic and transvaginal IMPRESSION: 1. Endometrium measures 0.5 cm in thickness. Recommend correlation with any symptoms of postmenopausal bleeding and gynecologic evaluation and management. 2. Few uterine myomas as detailed above. 3. Unremarkable sonographic appearance of the ovaries. Assessment & Plan Assessment & Plan (1) PMB (postmenopausal bleeding): Code(s): N95.0 - Postmenopausal bleeding Plan: EMBx today. See procedure note. (2) Encounter to discuss test results: Code(s): Z71.2 - Person consulting for explanation of examination or test findings Plan: Discussed: US findings: 1. Endometrium measures 0.5 cm in thickness. Recommend correlation with any symptoms of postmenopausal bleeding and gynecologic evaluation and management. 2. Few uterine myomas as detailed above. 3. Unremarkable sonographic appearance of the ovaries. All of her questions and concerns were addressed to the best of my ability and shared decision making. She is agreeable to plan of care. Orders: Orders Surgical Today N95.0 - Postmenopausal bleeding Coding Level of Care Code Procedure Only Diagnoses PMB (postmenopausal bleeding) N95.0 Encounter to discuss test results Z71.2 CPT Codes Endometrial Biopsy - CPT: 19603-[id number] Biopsy ([id number])
== END 2023-09-07 11:25 | disposition home or self-care (01) ==
PROVIDERS: PCP Internal Medicine; Visit Provider Advanced Practice Midwife
DX: N95.0 Postmenopausal bleeding (principal); Z71.2 Person consulting for explanation of examination or test findings
CPT/HCPCS: 58100

== ENCOUNTER 2023-09-07 10:43 | Outpatient (REF) | payer OTHER, SELFPAY | END 2023-09-07 10:44 | disposition home or self-care (01) | LOC: HO.LNP 10:43 | PROVIDERS: PCP Internal Medicine; Visit Provider Advanced Practice Midwife | DX: N95.0 Postmenopausal bleeding (principal); Z71.2 Person consulting for explanation of examination or test findings | CPT/HCPCS: 58100; 88305 ==

== ENCOUNTER 2023-09-11 08:44 | Outpatient (AMB) | payer OTHER, SELFPAY ==
[2023-09-11 08:56] VITALS: BP 120/70; PULSE 90; O2SAT 97; BMI 27.8
--- NOTE | 2023-09-11 08:56 | MHC.PC.OV ---
Vital Signs 09/11/23 08:56 Height 5 ft 3 in Weight 157 lb 2 oz BMI 27.8 BP 120/70 Blood Pressure Location Rt brachial Position Sitting Pulse 90 Pulse Source Pulse Oximeter Pulse Oximetry (%) 97 Oxygen Delivery Method Room Air Intake Visit Reasons: 6m follow up Allergies No Known Allergies Allergy (Verified 09/11/23 08:57) Medication List - Last Reconciled 09/11/23 by Terrance Huitron MD blood sugar diagnostic (FreeStyle Lite Strips) As directed three times a day blood sugar diagnostic (FreeStyle Precision [place] Strips) As directed once a day cyclobenzaprine 5 mg PO BID 30 days dulaglutide (Trulicity) 1.5 mg (0.5 mL) subcut QWEEK empagliflozin (Jardiance) 25 mg PO DAILY flash glucose scanning reader (FreeStyle Lisa 2 [place]) DIRECTED flash glucose sensor (FreeStyle Lisa 2 Sensor kit) As directed change every 2 wks gabapentin 100 mg PO BID hydroxyzine pamoate (Vistaril) 25 mg PO BEDTIME insulin glargine (Lantus Solostar U-100 Insulin) 20 units (0.2 mL) subcut QAM insulin lispro 6 units subcut TID lancets (FreeStyle Lancets) Three times a day magnesium oxide 400 mg PO BEDTIME 30 days melatonin 10 mg PO BEDTIME PRN metformin 1,000 mg (2 x 500 mg) PO BID 30 days mirtazapine 7.5 mg PO DAILY omeprazole 20 mg PO DAILY 90 days pen needle, diabetic (Comfort EZ Pen [place]) As directed pen needle, diabetic (Pentips) USE DIRECTED [shower chair Shower chair] Tobacco use date assessed: 09/11/23 Last assessed Fall Risk: 09/11/23 Dental Screening Dental Screen Date: 09/11/23 HPI 6m follow up HPI Details Patient is a 67-year-old female came in today to talk about her knee pain Patient has seen orthopedic [facility] October of last year but did not go back after that She has gone through physical therapy which has not helped her Patient have primary osteoarthritis right knee, she does not want another cortisone injection. Patient is tender medially Blue patella with palpation I have sent diclofenac 3% gel she may rub that b.i.d. as needed. She is seeing Dr. Marie endocrinology for the management of diabetes [facility] Medical History Fibroids PMB (postmenopausal bleeding) Osteopenia Dyslipidemia Diabetic polyneuropathy associated with type 2 diabetes mellitus Diabetes type 2, uncontrolled Diabetes 1.5, managed as type 1 Panic anxiety syndrome Hospital discharge follow-up Vitamin D deficiency Carpal tunnel syndrome Incontinence Hemorrhoids Tubal occlusion Insomnia Elevated cholesterol Depression Hypertension IDDM (insulin dependent diabetes mellitus) Surgical History History of neck surgery History of surgery History of colonoscopy History of hemorrhoidectomy History of carpal tunnel release History of bladder surgery S/P sinus surgery Hx of breast reduction, elective Hx of appendectomy H/O tubal ligation History of heart artery stent Family History Father No problems noted. Mother Heart disease Lung cancer Brother Liver cancer Brother Renal cancer HTN (hypertension) Diabetes mellitus Maternal Grandfather No problems noted. Maternal Grandmother No problems noted. Paternal Grandfather No problems noted. Paternal Grandmother No problems noted. Maternal Uncle Diabetes mellitus Paternal Uncle Diabetes mellitus Son No problems noted. Daughter No problems noted. Social History Housing: House Alcohol intake: current Alcohol intake frequency: a few times a month Patient Tobacco Use Status: Former Tobacco user Quit Date: 23 yrs ago e-Cigarette/Vaping Use: Never Used service: No Current occupational status: disabled Current occupation: right hand dominant Sexual orientation: Straight/Heterosexual Gender identity: Female Cognitive needs: No Hearing needs: No Vision needs: Yes Questionnaire Thrive Questionnaire Date Thrive assessed: 08/03/23 AUDIT C Alcohol Use Questionnaire (AUDIT-C) 1. How often do you have a drink containing alcohol?: Never 3. How often do you have six or more drinks on one occasion?: Never Total Score: 0 Score Reviewed/Action Taken: Yes MAYA-7 AMB Questionnaire MAYA-7 Date MAYA - 7 assessed: 08/03/23 Source: Developed by Drs. Octavio Quiles, Teagan Baig, Gumaro Fernandez and colleagues, with an educational nancy from [employer]. Review of Systems Const Denies chills and Denies fever(s) ENT Denies epistaxis and Denies nasal discharge Card Denies chest pain Resp Denies chest congestion, Denies cough and Denies hemoptysis GI Denies diarrhea and Denies nausea Skin/Breast Denies rash Neuro Reports no additional complaints Psych Reports no additional complaints Endo Reports no additional complaints Physical exam (Primary Care) Vital Signs: Last Vital Signs Pulse 90 09/11/23 08:56 BP 120/70 09/11/23 08:56 Pulse Ox 97 09/11/23 08:56 Oxygen Delivery Method Room Air 09/11/23 08:56 BMI result Body Mass Index 27.8 Tobacco/Smoking Status: Tobacco use Status Tobacco use date assessed 09/11/23 09/11/23 08:57 Patient Tobacco Use Status Former Tobacco user 09/11/23 08:57 e-Cigarette/Vaping Use Never Used 09/11/23 08:57 Thrive Assessment: Date of Thrive Assessment Date Thrive assessed 08/03/23 09/11/23 08:57 Const General: cooperative, comfortable and no acute distress Orientation/consciousness: patient oriented x3 HENMT Head: Yes normocephalic Eyes General: appearance normal, both eyes and all related structures Neck Neck: Yes supple Resp Effort & Inspection: normal respiratory effort, no cough and no stridor Cardio Rhythm: regular rhythm Heart sounds: S1 normal heart sound present and S2 normal heart sound present Skin General skin exam: turgor normal Neuro General: patient oriented x3, tone normal and moves all extremities Extrem Elbow/forearm/wrist images: 1. Tender with palpation, range of motion almost full but with slight pain Right lower extremity: no edema Left lower extremity: no edema Assessment and Plan Assessment & Plan (1) Knee pain, right: Code(s): M25.561 - Pain in right knee Qualifiers: Chronicity: acute Qualified Code(s): M25.561 - Pain in right knee (2) Osteoarthritis of right knee: Code(s): M17.11 - Unilateral primary osteoarthritis, right knee Qualifiers: Osteoarthritis type: primary Qualified Code(s): M17.11 - Unilateral primary osteoarthritis, right knee Plan Patient is a 67-year-old female came in today to talk about her knee pain Patient has seen orthopedic [facility] October of last year but did not go back after that She has gone through physical therapy which has not helped her Patient have primary osteoarthritis right knee, she does not want another cortisone injection. Patient is tender medially Blue patella with palpation I have sent diclofenac 3% gel she may rub that b.i.d. as needed. She is seeing Dr. Marie endocrinology for the management of diabetes Medications: New diclofenac sodium 3% 1 appl topical BID 100 grams 0RF Discontinued cyclobenzaprine 1 in the morning 1 in the afternoon Discontinued Reason: Doctor's Order 5 mg PO BID 30 days 60 tabs 0RF Coding Level of Care Code Est Pt Level 3 (35028) Diagnoses Acute pain of right knee M25.561 Chronicity: acute Primary osteoarthritis of right knee M17.11 Osteoarthritis type: primary
== END 2023-09-11 09:34 | disposition home or self-care (01) ==
PROVIDERS: Visit Provider Internal Medicine
DX: M25.561 Pain in right knee (principal); M17.11 Unilateral primary osteoarthritis, right knee
CPT/HCPCS: 99213

== ENCOUNTER 2023-09-28 09:57 | Outpatient (AMB) | payer OTHER, SELFPAY ==
--- NOTE | 2023-09-28 09:58 | A.OFFVIS_ITS ---
Intake Vital Signs 09/28/23 10:00 Height 5 ft 3 in Weight 156 lb 8.451 oz BMI 27.7 BP 122/68 Intake Visit Reasons: EMB results/15 mins ok per BMaloney Intake Note: The patient agreed to use of a durable medical equipment technician during this encounter. Scribed for RONAK Lockwood by Tiesha Mcdaniels durable medical equipment technician, on 09/28/2023 at 10:05 am EST Car Ferry Captain Required: Yes Car Ferry Captain Language: Blast Furnace Keeper Helper Name: Gisele CENTENO Information Interpreted: non-clinical & clinical Accompanied by: Self / Same As Patient Allergies No Known Allergies Allergy (Verified 09/28/23 10:01) Post menopausal: Yes HPI HPI Comments History of Present Illness Details She presents to discuss EMB results secondary to PMB. Denies any further bleeding. [facility] Medical History (Updated 09/28/23 @ 10:21 by Jamaica Greenberg CNM) Fibroids PMB (postmenopausal bleeding) Osteopenia Dyslipidemia Diabetic polyneuropathy associated with type 2 diabetes mellitus Diabetes type 2, uncontrolled Diabetes 1.5, managed as type 1 Panic anxiety syndrome Hospital discharge follow-up Vitamin D deficiency Carpal tunnel syndrome Incontinence Hemorrhoids Tubal occlusion Insomnia Elevated cholesterol Depression Hypertension IDDM (insulin dependent diabetes mellitus) Surgical History History of neck surgery History of surgery History of colonoscopy History of hemorrhoidectomy History of carpal tunnel release History of bladder surgery S/P sinus surgery Hx of breast reduction, elective Hx of appendectomy H/O tubal ligation History of heart artery stent Family History Father No problems noted. Mother Heart disease Lung cancer Brother Liver cancer Brother Renal cancer HTN (hypertension) Diabetes mellitus Maternal Grandfather No problems noted. Maternal Grandmother No problems noted. Paternal Grandfather No problems noted. Paternal Grandmother No problems noted. Maternal Uncle Diabetes mellitus Paternal Uncle Diabetes mellitus Son No problems noted. Daughter No problems noted. Social History Housing: House Alcohol intake: current Alcohol intake frequency: a few times a month Patient Tobacco Use Status: Former Tobacco user Quit Date: 23 yrs ago e-Cigarette/Vaping Use: Never Used service: No Current occupational status: disabled Current occupation: right hand dominant Sexual orientation: Straight/Heterosexual Gender identity: Female Cognitive needs: No Hearing needs: No Vision needs: Yes Review of Systems Const All systems reviewed & are unremarkable except as noted in HPI and below Physical Exam Vital Signs: Last Vital Signs BP 122/68 09/28/23 10:00 BMI result Body Mass Index 27.7 Const General: cooperative, healthy appearing, no acute distress, well developed and alert Results Reviewed Results Reviewed: EMBX Diagnosis Endometrium, biopsy: Few strips of superficial inactive endometrial glands and benign endocervical glands; negative for atypia or malignancy. 05/14/23 US IMPRESSION: 1. Endometrium measures 0.5 cm in thickness. Recommend correlation with any symptoms of postmenopausal bleeding and gynecologic evaluation and management. 2. Few uterine myomas as detailed above. 3. Unremarkable sonographic appearance of the ovaries. Assessment & Plan Assessment & Plan (1) PMB (postmenopausal bleeding): Code(s): N95.0 - Postmenopausal bleeding Plan: Reviewed EMB results with patient. Counseled on VB, rectal bleeding and urinary bleeding. Contact office with any PMB. RTO 04/14/24 for AG. (2) Fibroids: Comment: US 04/2023, follow up 10/2023. PMB-Bx neg 08/2023 Code(s): D21.9 - Benign neoplasm of connective and other soft tissue, unspecified Plan: Counseled on fibroids. Leiomyoma: common pelvic neoplasm. Differential diagnosis-may include leiomyosarcoma which is a rare uterine sarcoma 3- 7/100,000, difficult to distinguish from fibroids on ultrasound from uterine sarcoma's. Unlikely any single test will have a highly positive predictive value . Hysterectomy is not recommended for sole purpose of excluding malignant neoplasm. Report any PMB Pelvic pressure, bloating, or pain for follow up plan of care including another EMB and possible hysteroscopy. Expectant management follow up in 6 months, then yearly for stability. All of her questions and concerns were addressed to the best of my ability and shared decision making: for US. She is agreeable to plan of care. RTO for test results in Oct/Nov. (3) Encounter to discuss test results: Code(s): Z71.2 - Person consulting for explanation of examination or test findings Orders: Orders US pelvic and transvaginal 11/05/23 D21.9 - Benign neoplasm of connective and other soft tissue, unspecified Coding Level of Care Code Est Pt Level 3 (51679) Diagnoses PMB (postmenopausal bleeding) N95.0 Fibroids D21.9 Encounter to discuss test results Z71.2
[2023-09-28 10:00] VITALS: BP 122/68; BMI 27.7
== END 2023-09-28 10:14 | disposition home or self-care (01) ==
LOC: HO.HWS 09:57
PROVIDERS: PCP Internal Medicine; Visit Provider Advanced Practice Midwife
DX: N95.0 Postmenopausal bleeding (principal); D21.9 Benign neoplasm of connective and other soft tissue, unspecified; Z71.2 Person consulting for explanation of examination or test findings
CPT/HCPCS: 99213

== ENCOUNTER → 2023-09-28 09:57 | Outpatient (BNVA) | payer OTHER, SELFPAY | PROVIDERS: PCP Internal Medicine; Visit Provider Advanced Practice Midwife | DX: N95.0 Postmenopausal bleeding (principal); Z71.2 Person consulting for explanation of examination or test findings; D21.9 Benign neoplasm of connective and other soft tissue, unspecified | CPT/HCPCS: 99212 ==

== ENCOUNTER 2023-10-09 08:58 | Outpatient (AMB) | payer OTHER, SELFPAY ==
[2023-10-09 09:14] VITALS: BMI 28.2
--- NOTE | 2023-10-09 09:14 | A.OFFVIS_ITS ---
Intake VS Expanded 10/09/23 09:14 Height 5 ft 3 in Weight 159 lb 2.78 oz BMI 28.2 Intake Visit Reasons: T2DM Allergies No Known Allergies Allergy (Verified 09/28/23 10:01) HPI Nutrition Presentation Details Pt presents for MNT for T2DM Pt reports doing ok , reports having 3 meals following healthy plate method. Pt participates in quality life prog food frequency fruits: 0-1/d dairy: once/wk vegetables: 1-2 serving/d protein: poultry/beef/eggs starches> 15 serving/d fluids: coffee 2x/d, water, diet beverage ; 36 oz/day Most Recent Diabetes Results: No Data to Display [facility] Medical History (Updated 09/28/23 @ 10:21 by Jamaica Greenberg CNM) Fibroids PMB (postmenopausal bleeding) Osteopenia Dyslipidemia Diabetic polyneuropathy associated with type 2 diabetes mellitus Diabetes type 2, uncontrolled Diabetes 1.5, managed as type 1 Panic anxiety syndrome Hospital discharge follow-up Vitamin D deficiency Carpal tunnel syndrome Incontinence Hemorrhoids Tubal occlusion Insomnia Elevated cholesterol Depression Hypertension IDDM (insulin dependent diabetes mellitus) Surgical History History of neck surgery History of surgery History of colonoscopy History of hemorrhoidectomy History of carpal tunnel release History of bladder surgery S/P sinus surgery Hx of breast reduction, elective Hx of appendectomy H/O tubal ligation History of heart artery stent Family History Father No problems noted. Mother Heart disease Lung cancer Brother Liver cancer Brother Renal cancer HTN (hypertension) Diabetes mellitus Maternal Grandfather No problems noted. Maternal Grandmother No problems noted. Paternal Grandfather No problems noted. Paternal Grandmother No problems noted. Maternal Uncle Diabetes mellitus Paternal Uncle Diabetes mellitus Son No problems noted. Daughter No problems noted. Social History Housing: House Alcohol intake: current Alcohol intake frequency: a few times a month Patient Tobacco Use Status: Former Tobacco user Quit Date: 23 yrs ago e-Cigarette/Vaping Use: Never Used service: No Current occupational status: disabled Current occupation: right hand dominant Sexual orientation: Straight/Heterosexual Gender identity: Female Cognitive needs: No Hearing needs: No Vision needs: Yes Assessment & Plan Assessment & Plan (1) Type 2 diabetes mellitus with hypoglycemia without coma: Comment: Code(s): E11.649 - Type 2 diabetes mellitus with hypoglycemia without coma Plan: Rec 1500 ADA meal plan (40% carb, 30% fat, 30% prot) Used wt : 72kg Rec fluid as per 25 ml/kg bw: 1800 Rec NA 1500 mg/d REc fiber: 25 g /d Plan Rec 1500 ADA meal plan? (40% carb, 30% fat, 30% prot) Used wt : 72kg Rec fluid as per 25 ml/kg bw:? 1800 Rec NA? 1500 mg/d REc fiber: 25 g /d Educate patient on: (R= Reviewed, V = verbalizes understanding N/R= Needs review N/A= not applicable) * Food sources of carbohydrates and serving adequate serving sizes : R V * Difference between complex carbohydrates and simple carbohydrates, role of fiber: R V * Differences between fats (MUFA/PUFA/saturated fats, trans fats) and food sources of various fats: R V * Food sources of sodium and salt and healthy modifications for heart health and kidney health: R v * Vitamins and minerals: R V * How to interpret food labels: R V * Healthy Plate method concept: R V * Physical activity: benefits and precaution: R V Patient Instructions: Include food sources of calcium in the diet at least 2 serving of dairy products per day : yogurt/milk/milk alternatives once a day choose a serving of vegetables spinach/broccoli/jasmine green/carrots - see list of non starchy veg Take 500 mg calcium supplement with vitamin D and keep physically active as able (chair exercise) Keep hydrated by having water with meals/snacks Coding Level of Care Code Nutr Indiv Subseq (99016) Diagnoses Type 2 diabetes mellitus with hypoglycemia without coma E11.649 Time Spent (min) 30
== END 2023-10-09 09:54 | disposition home or self-care (01) ==
PROVIDERS: PCP Internal Medicine; Visit Provider Dietitian, Registered
DX: E11.649 Type 2 diabetes mellitus with hypoglycemia without coma (principal)

== ENCOUNTER → 2023-10-09 08:58 | Outpatient (BNVA) | payer OTHER, SELFPAY | PROVIDERS: Visit Provider Dietitian, Registered | DX: E11.649 Type 2 diabetes mellitus with hypoglycemia without coma (principal) | CPT/HCPCS: 97803 ==

== ENCOUNTER 2023-12-05 09:56 | Outpatient (REF) | payer OTHER, SELFPAY ==
--- NOTE | ~2023-12-05 | US_ITS ---
EXAMINATION: US PELVIS CLINICAL INFORMATION: Fibroid, 6 month follow-up Postmenopausal COMPARISON: Pelvic ultrasound 05/14/2023 TECHNIQUE: Ultrasound of the pelvis is performed using both transabdominal and transvaginal transducers along with Doppler. Transvaginal imaging is performed due to inadequate visualization transabdominally. FINDINGS: Uterus: The uterus is anteverted and measures 5.0 x 2.6 x 4.3 cm. 0.7 x 0.6 x 0.7 cm fibroid in the posterior body of the uterus previously measured 0.6 x 0.6 x 0.8 cm. 1.4 x 1.1 x 1.2 cm subserosal fibroid on the left was not previously identified. The endometrial thickness is 0.5 mm. Adnexa: Right ovary measures 2.6 x 1.1 x 1.1 cm. Volume 1.7 mL. The left ovary is not seen. US/US pelvic and transvaginal IMPRESSION: 1. 2 uterine fibroids. 2. Normal right ovary. 3. The left ovary is not seen.
== END 2023-12-05 09:57 | disposition home or self-care (01) ==
LOC: HO.US 09:56
PROVIDERS: PCP Internal Medicine; Visit Provider Advanced Practice Midwife
DX: D21.9 Benign neoplasm of connective and other soft tissue, unspecified (principal)
CPT/HCPCS: 76830; 76856

== ENCOUNTER 2023-12-11 08:58 | Outpatient (AMB) | payer OTHER, SELFPAY ==
--- NOTE | 2023-12-11 09:01 | MHC.OFFVIS ---
Intake Vital Signs 12/11/23 09:02 Height 5 ft 3 in Weight 162 lb BMI 28.7 BP 136/68 Intake Visit Reasons: Ultrasound follow up Level Vial Inspector Required: Yes Level Vial Inspector Language: Dining Service Supervisor Name: Gisele Information Interpreted: non-clinical & clinical Seismograph Observer: Seismograph Observer Present Allergies No Known Allergies Allergy (Verified 12/11/23 09:02) Is last menstrual period known: Yes HPI HPI Comments History of Present Illness Details Patient is here for a follow-up ultrasound results, history of fibroids. She denies any vaginal bleeding. She had a episode in March very light spotting 2022 EMB in August was negative. She has no pelvic pain she reports some bloating, denies constipation. [facility] Medical History Fibroids PMB (postmenopausal bleeding) Osteopenia Dyslipidemia Diabetic polyneuropathy associated with type 2 diabetes mellitus Diabetes type 2, uncontrolled Diabetes 1.5, managed as type 1 Panic anxiety syndrome Hospital discharge follow-up Vitamin D deficiency Carpal tunnel syndrome Incontinence Hemorrhoids Tubal occlusion Insomnia Elevated cholesterol Depression Hypertension IDDM (insulin dependent diabetes mellitus) Surgical History History of neck surgery History of surgery History of colonoscopy History of hemorrhoidectomy History of carpal tunnel release History of bladder surgery S/P sinus surgery Hx of breast reduction, elective Hx of appendectomy H/O tubal ligation History of heart artery stent Family History Father No problems noted. Mother Heart disease Lung cancer Brother Liver cancer Brother Renal cancer HTN (hypertension) Diabetes mellitus Maternal Grandfather No problems noted. Maternal Grandmother No problems noted. Paternal Grandfather No problems noted. Paternal Grandmother No problems noted. Maternal Uncle Diabetes mellitus Paternal Uncle Diabetes mellitus Son No problems noted. Daughter No problems noted. Social History Housing: House Alcohol intake: current Alcohol intake frequency: a few times a month Patient Tobacco Use Status: Former Tobacco user Quit Date: 23 yrs ago e-Cigarette/Vaping Use: Never Used service: No Current occupational status: disabled Current occupation: right hand dominant Sexual orientation: Straight/Heterosexual Gender identity: Female Cognitive needs: No Hearing needs: No Vision needs: Yes Review of Systems Const All systems reviewed & are unremarkable except as noted in HPI and below Endo Reports no additional complaints Physical Exam Vital Signs: Last Vital Signs BP 136/68 12/11/23 09:02 BMI result Body Mass Index 28.7 Const General: cooperative, healthy appearing and no acute distress Psych Appearance: well kempt Attitude: cooperative Thought process: Normal thought process present Results Reviewed Results Reviewed: [address] [address] Ultrasound Report Signed Patient: Emma Thrasher MR#: [id number] : 1955 Acct:[id number] Age/Sex: 67 / F ADM Date: 12/05/23 Loc: HO.US Attending Dr: Jamaica Greenberg CNM Ordering Physician: Jamaica Greenberg CNM Date of Service: 12/05/23 Procedure(s): US pelvic and transvaginal Accession Number(s): [id number] cc: Terrance Huitron MD; Jamaica Greenberg CNM~ EXAMINATION: US PELVIS CLINICAL INFORMATION: Fibroid, 6 month follow-up Postmenopausal COMPARISON: Pelvic ultrasound 05/14/2023 TECHNIQUE: Ultrasound of the pelvis is performed using both transabdominal and transvaginal transducers along with Doppler. Transvaginal imaging is performed due to inadequate visualization transabdominally. FINDINGS: Uterus: The uterus is anteverted and measures 5.0 x 2.6 x 4.3 cm. 0.7 x 0.6 x 0.7 cm fibroid in the posterior body of the uterus previously measured 0.6 x 0.6 x 0.8 cm. 1.4 x 1.1 x 1.2 cm subserosal fibroid on the left was not previously identified. The endometrial thickness is 0.5 mm. Adnexa: Right ovary measures 2.6 x 1.1 x 1.1 cm. Volume 1.7 mL. The left ovary is not seen. US/US pelvic and transvaginal IMPRESSION: 1. 2 uterine fibroids. 2. Normal right ovary. 3. The left ovary is not seen. Dictated By: Casandra Manzano MD Signed By: <Electronically signed by Casandra Manzano MD in OV> 12/06/23 1009 DD/ 1020 TD/TT: [employer] Dietary Service Supervisor: Assessment & Plan Assessment & Plan (1) Fibroids: Code(s): D21.9 - Benign neoplasm of connective and other soft tissue, unspecified (2) Encounter to discuss test results: Code(s): Z71.2 - Person consulting for explanation of examination or test findings Plan Discussed: Ultrasound findings additional fibroid noted since last study in April 2023. Counseled re: Leiomyoma: common pelvic neoplasm. Differential diagnosis-may include leiomyosarcoma which is a rare uterine sarcoma 3-7/100,000, difficult to distinguish from fibroids on ultrasound from uterine sarcoma's. Unlikely any single test will have a highly positive predictive value. Hysterectomy is not recommended for sole purpose of excluding malignant neoplasm. Report any PMB/AUB. Pelvic pressure, bloating, or pain. Advised to see her primary care for any additional GI bloating symptoms Consult for surgical exploration verses expectant management offered. Patient agree's with follow-up ultrasound. Expectant management follow up in 3 months, then yearly for stability. Referral to MD if indicated for level of care. All of her questions and concerns were addressed to the best of my ability and shared decision making. She is agreeable to the plan of care. This note is constructed using voice recognition software. While every effort has been made to ensure accuracy, tool machine shop supervisor errors may have been included. Orders: Orders US pelvic and transvaginal Today D21.9 - Benign neoplasm of connective and other soft tissue, unspecified Coding Level of Care Code Est Pt Level 3 (52720) Diagnoses Fibroids D21.9 Encounter to discuss test results Z71.2
[2023-12-11 09:02] VITALS: BP 136/68; BMI 28.7
== END 2023-12-11 10:01 | disposition home or self-care (01) ==
LOC: HO.HWS 08:58
PROVIDERS: PCP Internal Medicine; Visit Provider Advanced Practice Midwife
DX: D21.9 Benign neoplasm of connective and other soft tissue, unspecified (principal); Z71.2 Person consulting for explanation of examination or test findings
CPT/HCPCS: 99213

== ENCOUNTER → 2023-12-11 08:58 | Outpatient (BNVA) | payer OTHER, SELFPAY | PROVIDERS: PCP Internal Medicine; Visit Provider Advanced Practice Midwife | DX: Z71.2 Person consulting for explanation of examination or test findings (principal); D25.9 Leiomyoma of uterus, unspecified | CPT/HCPCS: 99212 ==

== ENCOUNTER 2023-12-18 13:47 | Outpatient (AMB) | payer OTHER, SELFPAY ==
--- NOTE | 2023-12-18 13:51 | MHC.PC.OV ---
Vital Signs 12/18/23 13:52 Height 5 ft 3 in Weight 160 lb 4 oz BMI 28.4 BP 132/62 Blood Pressure Location Rt brachial Position Sitting Pulse 110 H Pulse Source Pulse Oximeter Pulse Oximetry (%) 96 Oxygen Delivery Method Room Air Intake Visit Reasons: Cataract Rt eye surgery~ Allergies No Known Allergies Allergy (Verified 12/18/23 13:55) Medication List - Last Reconciled 12/18/23 by Terrance Huitron MD blood sugar diagnostic (FreeStyle Lite Strips) As directed three times a day blood sugar diagnostic (FreeStyle Precision [place] Strips) As directed once a day diclofenac sodium 3% 1 appl topical BID dulaglutide (Trulicity) 1.5 mg (0.5 mL) subcut QWEEK empagliflozin (Jardiance) 25 mg PO DAILY flash glucose scanning reader (TransceptaStyle Lisa 2 [place]) DIRECTED flash glucose sensor (FreeStyle Lisa 2 Sensor kit) USE DIRECTED. CHANGE EVERY 2 WEEKS. gabapentin 100 mg PO BID hydroxyzine pamoate (Vistaril) 25 mg PO BEDTIME insulin glargine (Lantus Solostar U-100 Insulin) 20 units (0.2 mL) subcut QAM insulin lispro 6 units subcut TID lancets (FreeStyle Lancets) Three times a day magnesium oxide 400 mg PO BEDTIME 30 days melatonin 10 mg PO BEDTIME PRN metformin 500 mg PO BID 90 days mirtazapine 7.5 mg PO DAILY omeprazole 20 mg PO DAILY 90 days pen needle, diabetic (Comfort EZ Pen [place]) As directed pen needle, diabetic (UltiCare Pen Needle) USE DIRECTED [shower chair Shower chair] Tobacco use date assessed: 12/18/23 Fall risk assessment: No Falls in past year Last assessed Fall Risk: 12/18/23 Dental Screening Dental Screen Date: 12/18/23 Did you have a dental visit in the last 12 months?: No Did you have a dental problem in the last 6 months where you did not have access to dental care?: No Was dental information given to patient?: Patient has dentist HPI Cataract Rt eye surgery~ HPI Details Patient is a 68-year-old female who is going in for right eye cataract surgery on 12/25/2023 by ointment mill tender at [facility]. Patient has a history of diabetes mellitus controlled, depression, anxiety, cervical spine stenosis, diabetic polyneuropathy, hypertension, lipid disorder, osteopenia, External hemorrhoid, vitamin-D deficiency, coronary artery disease, multiple joint arthrosis, obstructive sleep apnea Patient is due for labs She is in her usual state of health Patient is stable for cataract surgery [facility] Medical History Fibroids PMB (postmenopausal bleeding) Osteopenia Dyslipidemia Diabetic polyneuropathy associated with type 2 diabetes mellitus Diabetes type 2, uncontrolled Diabetes 1.5, managed as type 1 Panic anxiety syndrome Hospital discharge follow-up Vitamin D deficiency Carpal tunnel syndrome Incontinence Hemorrhoids Tubal occlusion Insomnia Elevated cholesterol Depression Hypertension IDDM (insulin dependent diabetes mellitus) Surgical History History of neck surgery History of surgery History of colonoscopy History of hemorrhoidectomy History of carpal tunnel release History of bladder surgery S/P sinus surgery Hx of breast reduction, elective Hx of appendectomy H/O tubal ligation History of heart artery stent Family History Father No problems noted. Mother Heart disease Lung cancer Brother Liver cancer Brother Renal cancer HTN (hypertension) Diabetes mellitus Maternal Grandfather No problems noted. Maternal Grandmother No problems noted. Paternal Grandfather No problems noted. Paternal Grandmother No problems noted. Maternal Uncle Diabetes mellitus Paternal Uncle Diabetes mellitus Son No problems noted. Daughter No problems noted. Social History Housing: House Alcohol intake: current Alcohol intake frequency: a few times a month Patient Tobacco Use Status: Former Tobacco user Quit Date: 23 yrs ago e-Cigarette/Vaping Use: Never Used service: No Current occupational status: disabled Current occupation: right hand dominant Sexual orientation: Straight/Heterosexual Gender identity: Female Cognitive needs: No Hearing needs: No Vision needs: Yes Questionnaire PHQ-9 Over the last 2 weeks, how often have you been bothered by any of the following problems? 1. Little interest or pleasure in doing things: several days 2. Feeling down, depressed, or hopeless: more than half the days 3. Trouble falling or staying asleep, or sleeping too much: more than half the days 4. Feeling tired or having little energy: several days 5. Poor appetite or overeating: several days 6. Feeling bad about yourself - or that you are a failure or have let yourself or your family down: several days 7. Trouble concentrating on things, such as reading the newspaper or watching television: more than half the days 8. Moving or speaking so slowly that other people could have noticed. Or the opposite - being so fidgety or restless that you have been moving around a lot more than usual: more than half the days 9. Thoughts that you would be better off or of hurting yourself in some way: not at all Total score: 12 Depression Screening Interpretation: Positive Depression Screening Follow-up: Existing condition and In treatment Depression Screening Done: Yes 24323 - PHQ-9 Billing: Yes Source: Developed by Drs. Octavio Quiles, Teagan Baig, Gumaro Fernandez and colleagues, with an educational nancy from [employer]. Thrive Questionnaire Date Thrive assessed: 12/18/23 I am a: Patient What is your living situation today?: I have a steady place to live Within the past 12 months, did the food you bought not last and you didn't have the money to get more?: Never true Within the past 12 months, did you worry whether your food would run out before you got money to buy more?: Never true Do you have trouble paying for medicines?: No Do you have trouble getting transportation to medical appointments?: No Do you have trouble paying your heating and electricity bill?: No Do you have trouble taking care of your child, family member or friend?: No Do you have trouble with day-to-day activities such as bathing, preparing meals, shopping, managing finances, etc.?: No Are you currently unemployed and looking for a job?: No Are you interested in more education?: No Please select the resources that you would like help with: None Currently or been in a relationship where the following occur: no concerns reported THRIVE Score: 0 AUDIT C Alcohol Use Questionnaire (AUDIT-C) 1. How often do you have a drink containing alcohol?: Never 3. How often do you have six or more drinks on one occasion?: Never Total Score: 0 Score Reviewed/Action Taken: Yes MAYA-7 AMB Questionnaire MAYA-7 Date MAYA - 7 assessed: 12/18/23 Feeling nervous, anxious, or on edge: 1 = Several days Not being able to stop or control worryin = Several days Worrying too much about different things: 1 = Several days Trouble relaxin = Several days Being so restless that it is hard to sit still: 1 = Several days Becoming easily annoyed or irritable: 1 = Several days Feeling afraid as if something awful might happen: 1 = Several days Total MYAA-7 score (0-4 normal; 5-9 mild; 10-14 moderate; 15-21 severe): 7 Source: Developed by Drs. Octavio Quiles, Teagan Baig, Gumaro Fernandez and colleagues, with an educational nancy from [employer]. MAYA-7 Assessment Billing MAYA-7 Assessment Tool: MAYA-7 Assessment 92831 Review of Systems Const Denies chills and Denies fever(s) ENT Denies epistaxis and Denies nasal discharge Card Denies chest pain Resp Denies chest congestion, Denies cough and Denies hemoptysis GI Denies diarrhea and Denies nausea Skin/Breast Denies rash Neuro Reports no additional complaints Psych Reports no additional complaints Endo Reports no additional complaints Physical exam (Primary Care) Vital Signs: Last Vital Signs Pulse 110 H 12/18/23 13:52 BP 132/62 12/18/23 13:52 Pulse Ox 96 12/18/23 13:52 Oxygen Delivery Method Room Air 12/18/23 13:52 BMI result Body Mass Index 28.4 Tobacco/Smoking Status: Tobacco use Status Tobacco use date assessed 12/18/23 12/18/23 13:55 Patient Tobacco Use Status Former Tobacco user 12/18/23 13:55 e-Cigarette/Vaping Use Never Used 12/18/23 13:55 PHQ-9: PHQ-9 Score PHQ-9: Total score 12 12/18/23 14:51 Depression Screening Interpretation: Positive Depression Screening Follow-up: Existing condition and In treatment Thrive Assessment: Date of Thrive Assessment Date Thrive assessed 12/18/23 12/18/23 14:51 Currently or been in a relationship where the following occur: no concerns reported Const General: cooperative, comfortable and no acute distress Orientation/consciousness: patient oriented x3 HENMT Head: Yes normocephalic Eyes General: appearance normal, both eyes and all related structures Neck Neck: Yes supple Resp Effort & Inspection: normal respiratory effort, no cough and no stridor Cardio Rhythm: regular rhythm Heart sounds: S1 normal heart sound present and S2 normal heart sound present Skin General skin exam: turgor normal Neuro General: patient oriented x3, tone normal and moves all extremities Extrem Right lower extremity: no edema Left lower extremity: no edema Assessment and Plan Assessment & Plan (1) Pre-op evaluation: Code(s): Z01.818 - Encounter for other preprocedural examination (2) Cataract: Code(s): H26.9 - Unspecified cataract Qualifiers: Cataract type: age-related Age-related cataract type: unspecified Laterality: right Qualified Code(s): H25.9 - Unspecified age-related cataract (3) Diabetes type 2, uncontrolled: Code(s): E11.65 - Type 2 diabetes mellitus with hyperglycemia Qualifiers: Coma presence: without coma Glycemic state: with hypoglycemia Qualified Code(s): E11.649 - Type 2 diabetes mellitus with hypoglycemia without coma (4) Diabetic polyneuropathy associated with type 2 diabetes mellitus: Code(s): E11.42 - Type 2 diabetes mellitus with diabetic polyneuropathy (5) Osteopenia: Code(s): M85.80 - Other specified disorders of bone density and structure, unspecified site Qualifiers: Osteopenia location: hip Laterality: bilateral Qualified Code(s): M85.851 - Other specified disorders of bone density and structure, right thigh; M85.852 - Other specified disorders of bone density and structure, left thigh (6) Atherosclerotic cardiovascular disease: Code(s): I25.10 - Atherosclerotic heart disease of [place] coronary artery without angina pectoris (7) Essential hypertension: Code(s): I10 - Essential (primary) hypertension (8) Major depression, recurrent: Code(s): F33.9 - Major depressive disorder, recurrent, unspecified Qualifiers: Active/Remission status: in partial remission Qualified Code(s): F33.41 - Major depressive disorder, recurrent, in partial remission (9) TRISTON (obstructive sleep apnea): Code(s): G47.33 - Obstructive sleep apnea (adult) (pediatric) (10) Cervical spinal stenosis: Code(s): M48.02 - Spinal stenosis, cervical region Plan Patient is a 68-year-old female who is going in for right eye cataract surgery on 12/25/2023 by ointment mill tender at [facility]. Patient has a history of diabetes mellitus controlled, depression, anxiety, cervical spine stenosis, diabetic polyneuropathy, hypertension, lipid disorder, osteopenia, External hemorrhoid, vitamin-D deficiency, coronary artery disease, multiple joint arthrosis, obstructive sleep apnea Patient is due for labs She is in her usual state of health Patient is stable for cataract surgery Orders: Orders Comprehensive Met. Panel Today E11.42 - Type 2 diabetes mellitus with diabetic polyneuropathy, E11.65 - Type 2 diabetes mellitus with hyperglycemia, F33.9 - Major depressive disorder, recurrent, unspecified, G47.33 - Obstructive sleep apnea (adult) (pediatric), G89.29 - Other chronic pain, I10 - Essential (primary) hypertension, I25.10 - Atherosclerotic heart disease of [place] coronary artery without angina pectoris, M48.02 - Spinal stenosis, cervical region, M54.9 - Dorsalgia, unspecified, M85.80 - Other specified disorders of bone density and structure, unspecified site Hemoglobin A1c 3 Months E11.42 - Type 2 diabetes mellitus with diabetic polyneuropathy, E11.65 - Type 2 diabetes mellitus with hyperglycemia Comprehensive Met. Panel 3 Months E11.42 - Type 2 diabetes mellitus with diabetic polyneuropathy, E11.65 - Type 2 diabetes mellitus with hyperglycemia Hemoglobin A1c Today E11.42 - Type 2 diabetes mellitus with diabetic polyneuropathy, E11.65 - Type 2 diabetes mellitus with hyperglycemia, F33.9 - Major depressive disorder, recurrent, unspecified, G47.33 - Obstructive sleep apnea (adult) (pediatric), G89.29 - Other chronic pain, I10 - Essential (primary) hypertension, I25.10 - Atherosclerotic heart disease of [place] coronary artery without angina pectoris, M48.02 - Spinal stenosis, cervical region, M54.9 - Dorsalgia, unspecified, M85.80 - Other specified disorders of bone density and structure, unspecified site Complete Blood Count Auto Diff Today E11.42 - Type 2 diabetes mellitus with diabetic polyneuropathy, E11.65 - Type 2 diabetes mellitus with hyperglycemia, F33.9 - Major depressive disorder, recurrent, unspecified, G47.33 - Obstructive sleep apnea (adult) (pediatric), G89.29 - Other chronic pain, I10 - Essential (primary) hypertension, I25.10 - Atherosclerotic heart disease of [place] coronary artery without angina pectoris, M48.02 - Spinal stenosis, cervical region, M54.9 - Dorsalgia, unspecified, M85.80 - Other specified disorders of bone density and structure, unspecified site LDL Cholesterol Direct Today E11.42 - Type 2 diabetes mellitus with diabetic polyneuropathy, E11.65 - Type 2 diabetes mellitus with hyperglycemia, F33.9 - Major depressive disorder, recurrent, unspecified, G47.33 - Obstructive sleep apnea (adult) (pediatric), G89.29 - Other chronic pain, I10 - Essential (primary) hypertension, I25.10 - Atherosclerotic heart disease of [place] coronary artery without angina pectoris, M48.02 - Spinal stenosis, cervical region, M54.9 - Dorsalgia, unspecified, M85.80 - Other specified disorders of bone density and structure, unspecified site Microalbumin, Random (w Creat) Today E11.42 - Type 2 diabetes mellitus with diabetic polyneuropathy, E11.65 - Type 2 diabetes mellitus with hyperglycemia, F33.9 - Major depressive disorder, recurrent, unspecified, G47.33 - Obstructive sleep apnea (adult) (pediatric), G89.29 - Other chronic pain, I10 - Essential (primary) hypertension, I25.10 - Atherosclerotic heart disease of [place] coronary artery without angina pectoris, M48.02 - Spinal stenosis, cervical region, M54.9 - Dorsalgia, unspecified, M85.80 - Other specified disorders of bone density and structure, unspecified site Coding Level of Care Code Est Pt Level 4 (73575) Diagnoses Pre-op evaluation Z01.818 Senile cataract of right eye, unspecified age-related cataract type H25.9 Cataract type: age-related Age-related cataract type: unspecified Laterality: right Uncontrolled type 2 diabetes mellitus with hypoglycemia without coma E11.649 Coma presence: without coma Glycemic state: with hypoglycemia Diabetic polyneuropathy associated with type 2 diabetes mellitus E11.42 Osteopenia of both hips M85.851; M85.852 Osteopenia location: hip Laterality: bilateral Atherosclerotic cardiovascular disease I25.10 Essential hypertension I10 Recurrent major depressive disorder, in partial remission F33.41 Active/Remission status: in partial remission [place] (obstructive sleep apnea) G47.33 Cervical spinal stenosis M48.02 Additional Codes MAYA-7 Assessment Billing - MAYA-7 Assessment Tool: MAYA-7 Assessment [id number] ([id number])
[2023-12-18 13:52] VITALS: BP 132/62; PULSE 110; O2SAT 96; BMI 28.4
== END 2023-12-18 15:11 | disposition home or self-care (01) ==
PROVIDERS: PCP Internal Medicine; Visit Provider Internal Medicine
DX: E11.649 Type 2 diabetes mellitus with hypoglycemia without coma (principal); E11.42 Type 2 diabetes mellitus with diabetic polyneuropathy; F33.41 Major depressive disorder, recurrent, in partial remission; Z01.818 Encounter for other preprocedural examination; H25.9 Unspecified age-related cataract; M85.851 Other specified disorders of bone density and structure, right thigh; M85.852 Other specified disorders of bone density and structure, left thigh; I25.10 Atherosclerotic heart disease of native coronary artery without angina pectoris; I10 Essential (primary) hypertension; G47.33 Obstructive sleep apnea (adult) (pediatric); M48.02 Spinal stenosis, cervical region
CPT/HCPCS: 99214

== ENCOUNTER 2023-12-18 14:11 | Outpatient (REF) | payer OTHER, SELFPAY ==
[2023-12-18 16:05] LABS: MANUAL DIFF FLAG NO
[2023-12-18 16:18] LABS: Basophils Percent Auto 0.7 % (0-2); Eosinophils Absolute Auto 0.1 X10*3/uL (0.0-0.4); Eosinophils Percent Auto 2.2 % (0-4); Hematocrit 43.1 % (37.0-47.0); Hemoglobin 13.9 g/dl (12.0-16.0); Imm Gran Abs Auto 0.03 X10*3/uL (0.00-0.03); Imm Gran Pct Auto 0.5 % (0.0-0.4); Lymphocytes Absolute Auto 1.7 X10*3/uL (1.2-4.9); Lymphocytes Percent Auto 30.1 % (20-40); Mean Corpuscular HGB Conc 32.3 g/dl (31.0-35.0); Mean Corpuscular Hemoglobin 28.8 pg (27.0-33.0); Mean Corpuscular Volume 89.4 fL (80.0-98.0); Mean Platelet Volume 10.3 fL (9.4-12.3); Monocytes Absolute Auto 0.3 X10*3/uL (0.1-1.2); Monocytes Percent Auto 6.2 % (2-11); Neutrophils Absolute Auto 3.3 x10*3/uL (2.0-8.3); Neutrophils Percent Auto 60.3 % (45-73); Platelet Count 197 X10*3/uL (160-400); Red Blood Count 4.82 X10*6/uL (4.20-5.50); Red Cell Distribution Width 14.6 % (11.0-16.0); White Blood Count 5.5 X10*3/uL (4.8-10.8)
[2023-12-18 16:21] LABS: Estimated Average Glucose 169 mg/dL; Hemoglobin A1c % 7.5 % (<6.0)
[2023-12-18 16:23] LABS: Alanine Aminotransferase 75 U/L (0-31); Albumin Level 4.3 g/dL (3.5-5.0); Alkaline Phosphatase 112 U/L (39-117); Anion Gap 13 (12-20); Aspartate Amino Transferase 39 U/L (5-31); Bilirubin Total 0.2 mg/dL (0.0-1.0); Blood Urea Nitrogen 20 mg/dL (9-16); Calcium 9.7 mg/dL (8.4-10.2); Carbon Dioxide 25 mmol/L (22-29); Chloride 105 mmol/L (96-108); Estimated Glomerular Filt Rate > 60; Glucose Random 204 mg/dL (60-115); Potassium 4.3 mmol/L (3.3-5.1); Sodium 139 mmol/L (135-145); Total Protein 8.3 g/dL (6.5-8.0)
[2023-12-18 16:40] LABS: Creatinine Urine 32.15 mg/dL; Microalbum/Creatinine Ratio Ur 18.6 ug/mg cr (<30)
[2023-12-20 19:34] LABS: LDL Cholesterol Direct 138 mg/dL (<100)
== END 2023-12-18 14:12 | disposition home or self-care (01) ==
LOC: HO.HMGCLDS 14:11
PROVIDERS: PCP Internal Medicine; Visit Provider Internal Medicine
DX: E11.65 Type 2 diabetes mellitus with hyperglycemia (principal); E11.42 Type 2 diabetes mellitus with diabetic polyneuropathy; I25.10 Atherosclerotic heart disease of native coronary artery without angina pectoris; I10 Essential (primary) hypertension; M85.80 Other specified disorders of bone density and structure, unspecified site; M54.9 Dorsalgia, unspecified; M48.02 Spinal stenosis, cervical region; G89.29 Other chronic pain; G47.33 Obstructive sleep apnea (adult) (pediatric); F33.9 Major depressive disorder, recurrent, unspecified
CPT/HCPCS: 36415; 80053; 82043; 82570; 83036; 83721; 85025

== ENCOUNTER 2023-12-22 09:07 | Emergency (ER) | payer OTHER, SELFPAY ==
--- NOTE | ~2023-12-22 | US_ITS ---
EXAMINATION: US VENOUS ULTRASOUND WITH DOPPLER LOWER EXTREMITY, RIGHT CLINICAL INFORMATION: Pain COMPARISON: None available. TECHNIQUE: Ultrasound of the deep veins is performed from the hip to the calf with compression sonography and color and pulse Doppler assessment. Spectral analysis with color-flow imaging is performed. FINDINGS: There is normal venous compression and respiratory variation and augmented flow. The visualized common femoral vein, superficial femoral vein, profunda femoral vein, popliteal vein, and the trifurcation region shows no evidence of deep venous thrombosis. Mildly complex Tilley's cyst measuring 1.9 x 1.2 x 2 cm. If the patient's symptoms persist, followup ultrasound in 5 days 7 days might be of value to exclude proximal propagation from a non-visualized calf vein. US/US venous duplex LE RT IMPRESSION: No DVT demonstrated in the right lower extremity. Mildly complex 2 cm Tilley's cyst.
[2023-12-22 09:08] VITALS: BP 136/88; PULSE 123; RESP 20; TEMP 36.1; O2SAT 96; BMI 28.3
--- NOTE | 2023-12-22 09:20 | ED_ITS ---
HPI - Extremity Problem General Chief complaint: Extremity Injury, Upper Stated complaint: R shoulder pain Time Seen by Provider: 12/22/23 09:14 Source: patient and RN notes reviewed Mode of arrival: ambulatory Limitations: no limitations History of Present Illness HPI Narrative: This is a 68-year-old Slovenian-speaking female, with a past medical history of known calcific tendinitis in the right shoulder, carpal tunnel syndrome, depression, hyperlipidemia, diabetes, presenting to the emergency department for evaluation of right arm pain x2 days. Patient has no known injury or trauma to her right arm. She states that over the last 2 days she has had worsening pain in her right arm. Denies any recent fevers, chills, chest pain, shortness breast, abdominal pain, nausea, vomiting or diarrhea. Denies taking any medications at home to treat her current symptoms. She previously saw physical therapy for her right shoulder, which she has discontinued. She has not seen in orthopedics for her right shoulder. No other complaints or concerns at this time. MD Complaint: extremity pain Onset (ago): day(s) Pain Consistency: constant Location: right and upper extremity Severity scale (1-10): 6 Quality: aching Radiation: none Relieving factors: nothing Exacerbating factors: range of motion and palpation Associated symptoms: denies other symptoms Related Data Home Medications Medication Instructions Recorded Confirmed melatonin 10 mg capsule 10 mg PO BEDTIME PRN 11/03/20 12/18/23 insulin lispro 100 unit/mL 6 unit subcut TID 02/27/23 12/18/23 subcutaneous pen hydroxyzine pamoate 25 mg capsule 25 mg PO BEDTIME 09/11/23 12/18/23 (Vistaril) mirtazapine 7.5 mg tablet 7.5 mg PO DAILY 09/11/23 12/18/23 Previous Rx's Medication Instructions Recorded shower chair #1 ea 11/09/20 lancets 28 gauge (FreeStyle #100 ea 12/05/21 Lancets) blood sugar diagnostic (FreeStyle #100 ea 12/04/22 Lite Strips) insulin glargine 100 unit/mL (3 20 unit (0.2 mL) subcut QAM #15 mL 02/05/23 mL) subcutaneous pen (Lantus Solostar U-100 Insulin) blood sugar diagnostic (FreeStyle #50 ea 02/09/23 Precision Wellington Strips) flash glucose scanning reader ##1 02/26/23 (FreeStyle Lisa 2 Novinger) dulaglutide 1.5 mg/0.5 mL 1.5 mg (0.5 mL) subcut QWEEK #2 mL 04/05/23 subcutaneous pen injector (Trulicity) pen needle, diabetic 33 gauge x #100 ea 04/05/23 (Comfort EZ Pen Hamlin) magnesium oxide 400 mg (241.3 mg 400 mg PO BEDTIME 30 days #30 tabs 06/08/23 magnesium) tablet gabapentin 100 mg capsule 100 mg PO BID #60 caps 07/11/23 diclofenac sodium 3 % topical gel 1 appl topical BID #100 grams 09/11/23 pen needle, diabetic 32 gauge x #100 ea 09/12/23 (UltiCare Pen Needle) metformin 500 mg tablet 500 mg PO BID 90 days #180 tabs 09/26/23 flash glucose sensor (FreeStyle #2 kits 11/07/23 Lisa 2 Sensor kit) omeprazole 20 mg capsule,delayed 20 mg PO DAILY 90 days #90 caps 11/29/23 release empagliflozin 25 mg tablet 25 mg PO DAILY #90 tabs 12/07/23 (Jardiance) acetaminophen 500 mg tablet 500 mg PO Q6H PRN pain #30 tabs 12/22/23 (Tylenol Extra Strength) cephalexin 250 mg capsule 250 mg PO QID 5 days #20 caps 12/22/23 cyclobenzaprine 5 mg tablet 5 mg PO TID PRN muscle spasm #14 12/22/23 tabs Allergies Allergy/AdvReac Type Severity Reaction Status Date / Time No Known Allergies Allergy Verified 12/22/23 09:11 Review of Systems Review of Systems: Yes all other systems are reviewed and are negative Constitutional: Constitutional: Reports as per [facility] Past Medical History Attestation statement: The following information was validated with the patient. Medical History Fibroids PMB (postmenopausal bleeding) Osteopenia Dyslipidemia Diabetic polyneuropathy associated with type 2 diabetes mellitus Diabetes type 2, uncontrolled Diabetes 1.5, managed as type 1 Panic anxiety syndrome Hospital discharge follow-up Vitamin D deficiency Carpal tunnel syndrome Incontinence Hemorrhoids Tubal occlusion Insomnia Elevated cholesterol Depression Hypertension IDDM (insulin dependent diabetes mellitus) Surgical History History of neck surgery History of surgery History of colonoscopy History of hemorrhoidectomy History of carpal tunnel release History of bladder surgery S/P sinus surgery Hx of breast reduction, elective Hx of appendectomy H/O tubal ligation History of heart artery stent Family History Family History Father No problems noted. Mother Heart disease Lung cancer Brother Liver cancer Brother Renal cancer HTN (hypertension) Diabetes mellitus Maternal Grandfather No problems noted. Maternal Grandmother No problems noted. Paternal Grandfather No problems noted. Paternal Grandmother No problems noted. Maternal Uncle Diabetes mellitus Paternal Uncle Diabetes mellitus Son No problems noted. Daughter No problems noted. Social History Social History Housing: House Alcohol intake: current Alcohol intake frequency: holidays/special occasions only Patient Tobacco Use Status: Former Tobacco user Quit Date: 23 yrs ago Smoked in Last 30 Days: No e-Cigarette/Vaping Use: Never Used Use of substances other than those prescribed or required for medical reasons: No Advance Directives: No Advance Directives Information Provided: No service: No Current occupational status: disabled Current occupation: right hand dominant Sexual orientation: Straight/Heterosexual Gender identity: Female Cognitive needs: No Hearing needs: No Vision needs: Yes Physical Exam Vital Signs: Vital Signs: Last Vital Signs Temp 98 F 12/22/23 14:00 Pulse 109 H 12/22/23 14:00 Resp 16 12/22/23 14:00 BP 116/75 12/22/23 14:00 Pulse Ox 98 12/22/23 14:00 O2 Del Method Room Air 12/22/23 14:00 BMI result Body Mass Index 28.3 Const: General: cooperative, comfortable and no acute distress Orientation/consciousness: patient oriented x3 Limitations: no limitations HEENT: Head: Yes normal to inspection, Yes normocephalic and Yes atraumatic Ears: hearing grossly normal bilaterally General nose exam: Normal external nose present Face and sinus: Yes normal facial exam Mouth: Normal oral and palatal mucosa present, oropharynx normal and moist mucous membranes Throat: Yes posterior oropharynx normal Eyes: General: appearance normal, both eyes and all related structures Eyelids: Yes eyelids normal Conjunctivae: conjunctivae normal Sclerae: sclerae normal Pupils: Equal, round and reactive pupils present EOM: EOMs intact bilaterally Neck: Neck: Yes normal visual inspection, Yes full ROM and Yes no lymphadenopathy Lymphatic: no lymphadenopathy noted Chest: Chest palpation & inspection: normal inspection of the chest Resp: Effort & Inspection: normal respiratory effort and able to speak in complete sentences Auscultation: clear to auscultation bilaterally, no crackles, no rales, no rhonchi and no wheezes Cardio: Rate: regular rate Rhythm: regular rhythm Heart sounds: S1 normal heart sound present and S2 normal heart sound present GI: Inspection: Yes normal to inspection Skin: General skin exam: no rashes or lesions noted Trauma: no lacerations or abrasions Wounds: no wounds Neuro: General: patient oriented x3 and moves all extremities Cranial nerves: Yes Equal, round and reactive pupils present Extrem: Other: Right bicep with tenderness to palpation on the anterior aspect . Faint erythema noted distally, proximally 3 in away from tenderness. No induration or fluctuance. Forward flexion to about 40?, abduction to about 90? with pain. Distal sensation circulation intact. Radial pulse 2 + General: Yes normal to inspection Right upper extremity: normal to inspection Left upper extremity: normal to inspection Right lower extremity: normal to inspection Left lower extremity: normal to inspection Course Reevaluation(s) Reevaluation #1: Patient resting comfortably Reevaluation #2: While patient was resting, she was experiencing calf pain/cramping, ultrasound was ordered. Revealing complex Tilley's cyst. Discussed findings with patient. Discharging patient on anti-inflammatories, muscle relaxants, advised to follow- up primary care physician next week regarding symptoms. Also treating for early skin infection as patient has faint erythema. Patient given return precautions. She is otherwise feeling better than when she did upon arrival, better range of motion of her right shoulder and arm. No other complaints or concerns at this time. Patient stable discharge Time: 12:58 Medications Administered Discontinued Medications Generic Name Dose Route Start Last Admin Trade Name Yuvalq PRN Reason Stop Dose Admin Diazepam 2 mg 12/22/23 10:12/22/23 10:05 Diazepam 2 Mg Tablet PO 12/22/23 10:02 2 mg ONCE ONE Administration Morphine Sulfate 15 mg 12/22/23 10:12/22/23 10:05 Morphine Sulfate Er 15 Mg Tablet.Er PO 12/22/23 10:02 15 mg ONCE ONE Administration Medical Decision Making Medical Decision Making MDM Narrative: This is a 68-year-old female presenting to the emergency department for evaluation of right arm pain x2 days. No recent trauma or injury, on arrival, patient tachycardic 123, all other vital signs within normal limits. She did walk to the emergency room has the bus route was down. She has no chest pain, shortness of breath, abdominal pain,, lightheadedness, dizziness, headaches. Physical exam revealing tenderness palpation along the biceps, faint erythema noted inferiorly to tenderness, no induration or fluctuance. She is known problems with her right shoulder, previously seen by Orthopedics and referred to physical therapy. Range of motion limited secondary to pain. Differential terry gnoses include tendonitis, shoulder strain,cellulitis. Plan: Medicate with morphine 15 mg p.o., and Valium 2 mg p.o. Differential Diagnosis Differential Diagnoses: The differential diagnosis associated with the presentation includes See above Discharge Plan Discharge Clinical Impression: Arm pain, right, Chronic shoulder pain, Cellulitis Patient Disposition: Home, Self-Care Instructions: Pain Management (ED), Arthralgia (ED), Shoulder Pain (ED) Additional Instructions: You were seen in the emergency department due to right arm pain. Your symptoms are likely due to worsening right shoulder arthritis and muscle s pasms. Please take prescribed medication as directed. Please be advised that Flexeril can cause drowsiness, do not drink alcohol or drive while taking this medication. Gentle range of motion, stretching, massage can also help with your pain If any new or worsening symptoms occur including but not limited to chest pain, shortness breast, inability to move your arm, please return for re-evaluation. Prescriptions: New acetaminophen [Tylenol Extra Strength] 500 mg tablet 500 mg PO Q6H PRN (Reason: pain) Qty: 30 0RF cyclobenzaprine 5 mg tablet 5 mg PO TID PRN (Reason: muscle spasm) Qty: 14 0RF cephalexin 250 mg capsule 250 mg PO QID 5 Days Qty: 20 0RF No Action (DME) shower chair Medium 0 .Route .MEDSUPPLY Qty: 1 0RF Rx Instructions: Shower chair (DME) lancets [FreeStyle Lancets] 28 gauge misc See Rx Instructions .ROUTE .MEDSUPPLY Qty: 100 11RF Rx Instructions: Three times a day (DME) FreeStyle Lite Strips Strip See Rx Instructions .ROUTE .MEDSUPPLY Qty: 100 11RF Rx Instructions: As directed three times a day insulin glargine [Lantus Solostar U-100 Insulin] 100 unit/mL (3 mL) insulin pen 20 unit subcut QAM Qty: 15 5RF (DME) FreeStyle Precision Wellington Strips Strip See Rx Instructions .Route Qty: 50 5RF Rx Instructions: As directed once a day (DME) FreeStyle Lisa 2 Novinger Misc See Rx Instructions .ROUTE .COMPLEX Qty: 1 0RF Dose Instruction: DIRECTED Rx Instructions: DIRECTED Trulicity 1.5 mg/0.5 mL pen injector 1.5 mg subcut QWEEK Qty: 2 5RF (DME) pen needle, diabetic [Comfort EZ Pen Hamlin] 33 gauge x 5/32 needle See Rx Instructions .ROUTE .MEDSUPPLY Qty: 100 0RF Rx Instructions: As directed magnesium oxide 400 mg (241.3 mg magnesium) tablet 400 mg PO BEDTIME 30 Days Qty: 30 6RF Rx Instructions: may hold for loose stools gabapentin 100 mg capsule 100 mg PO BID Qty: 60 5RF (DME) pen needle, diabetic [UltiCare Pen Needle] 32 gauge x 5/32 needle See Rx Instructions .ROUTE .COMPLEX Qty: 100 0RF Dose Instruction: USE DIRECTED Rx Instructions: USE DIRECTED metformin 500 mg tablet 500 mg PO BID 90 Days Qty: 180 1RF (DME) FreeStyle Lisa 2 Sensor Kit See Rx Instructions .ROUTE .COMPLEX Qty: 2 6RF Dose Instruction: USE DIRECTED. CHANGE EVERY 2 WEEKS. Rx Instructions: USE DIRECTED. CHANGE EVERY 2 WEEKS. omeprazole 20 mg capsule,delayed release(DR/EC) 20 mg PO DAILY 90 Days Qty: 90 0RF Jardiance 25 mg tablet 25 mg PO DAILY Qty: 90 1RF mirtazapine 7.5 mg tablet 7.5 mg PO DAILY hydroxyzine pamoate [Vistaril] 25 mg capsule 25 mg PO BEDTIME diclofenac sodium 3 % gel 1 appl topical BID Qty: 100 0RF melatonin 10 mg capsule 10 mg PO BEDTIME PRN insulin lispro 100 unit/mL insulin pen 6 unit subcut TID Interventions: ED Discharge Assessment Last Done: 12/22/23 14:33 Discharge Date/Time: 12/22/23 14:26
[2023-12-22 09:26] VITALS: PULSE 116
[2023-12-22] MEDS: diazePAM 2 MG TABLET PO (10:05)
[2023-12-22] MEDS: Morphine Sulfate ER 15 MG TABLET.ER PO (10:05)
[2023-12-22 11:51] VITALS: BP 158/74; PULSE 107; RESP 18; TEMP 36.7; O2SAT 96
[2023-12-22 14:00] VITALS: BP 116/75; PULSE 109; RESP 16; TEMP 36.6; O2SAT 98
== END 2023-12-22 14:26 | disposition home or self-care (01) ==
PROVIDERS: Emergency Provider Emergency Medicine; PCP Internal Medicine
DX: L03.113 Cellulitis of right upper limb (principal); M79.601 Pain in right arm; G89.29 Other chronic pain; M25.511 Pain in right shoulder; E11.9 Type 2 diabetes mellitus without complications; E78.5 Hyperlipidemia, unspecified
CPT/HCPCS: 93971; 99284

== ENCOUNTER 2024-01-08 09:02 | Outpatient (REF) | payer OTHER, SELFPAY ==
--- NOTE | ~2024-01-08 | MM_ITS ---
EXAMINATION: MM SCREENING DIGITAL BREAST TOMOSYNTHESIS, BILATERAL CLINICAL INFORMATION: Screening. Asymptomatic. The patient is status post bilateral breast reduction. COMPARISON: Mammography: This study is compared with prior exams dating back to TECHNIQUE: Digital breast tomosynthesis is performed in both the craniocaudal and mediolateral oblique views along with computer-aided detection (CAD). Synthesized 2D images are generated from the tomosynthesis. FINDINGS: There are scattered areas of fibroglandular density (ACR BI-RADS breast composition Category b). There are no significant masses, abnormal calcifications, or other abnormalities. Post reduction changes are present. MM/MM tomosynthesis screening BI IMPRESSION: No mammographic evidence of malignancy. ASSESSMENT: BI-RADS BI-RADS 2 - Benign Findings RECOMMENDATION: Routine annual mammography screening. 1 year F/U This examination should not preclude the clinical evaluation of a suspicious palpable abnormality. This patient's information was entered into a reminder system with a target due date for their next mammogram.
== END 2024-01-08 09:03 | disposition home or self-care (01) ==
LOC: HO.MAMMO 09:02
PROVIDERS: PCP Internal Medicine; Visit Provider Internal Medicine
DX: Z12.31 Encounter for screening mammogram for malignant neoplasm of breast (principal)
CPT/HCPCS: 77063; 77067

== ENCOUNTER → 2024-01-08 09:15 | Outpatient (BNV) | payer OTHER, SELFPAY | PROVIDERS: PCP Internal Medicine; Visit Provider Radiology Diagnostic Radiology | DX: Z12.31 Encounter for screening mammogram for malignant neoplasm of breast (principal) | CPT/HCPCS: 77063; 77067 ==

== ENCOUNTER 2024-02-27 10:56 | Outpatient (REF) | payer OTHER, SELFPAY ==
--- NOTE | ~2024-02-27 | US_ITS ---
EXAMINATION: US PELVIS CLINICAL INFORMATION: Fibroid stability, postmenopausal. COMPARISON: 10/05/2024 TECHNIQUE: Ultrasound of the pelvis is performed using both transabdominal and transvaginal transducers along with Doppler. Transvaginal imaging is performed due to inadequate visualization transabdominally. FINDINGS: The uterus measures 4.8 x 2.6 x 4.2 cm and is anteverted. A 1.0 x 0.7 x 0.8 cm fibroid in the posterior body of the uterus previously measured 0.7 x 0.6 x 0.7 cm on 12/05/2023. No significant free fluid. Complex nabothian cysts. Endometrial thickness is 3 mm. Right ovary measures 2.0 x 1.2 x 1.6 cm, volume 2.0 mL. Left ovary measures 1.5 x 1.3 x 1.4 cm, volume 1.4 mL. Bilateral ovaries are grossly unremarkable, although visualization is substantially limited due to bowel gas. No significant free fluid. US/US pelvic and transvaginal IMPRESSION: 1. Single 1.0 cm fibroid, previously 0.7 cm. 2. Endometrial thickness is 3 mm. 3. Grossly unremarkable bilateral ovaries.
== END 2024-02-27 10:57 | disposition home or self-care (01) ==
LOC: HO.US 10:56
PROVIDERS: PCP Internal Medicine; Visit Provider Advanced Practice Midwife
DX: D21.9 Benign neoplasm of connective and other soft tissue, unspecified (principal)
CPT/HCPCS: 76830; 76856

== ENCOUNTER 2024-03-06 13:43 | Emergency (ER) | payer OTHER, SELFPAY ==
--- NOTE | ~2024-03-06 | XR_ITS ---
EXAMINATION: XR CHEST CLINICAL INFORMATION: Shortness of breath and wheezing COMPARISON: 04/30/2020 TECHNIQUE: Frontal view of the chest was obtained. FINDINGS: No significant abnormality is noted involving the heart, lungs or mediastinum. Again noted are degenerative changes in the spine and calcification in the right supraspinatus tendon. XR/XR chest 1V IMPRESSION: No acute intrathoracic disease.
[2024-03-06 14:00] VITALS: BP 127/100; PULSE 125; RESP 20; TEMP 38.2; O2SAT 96; BMI 27.6
--- NOTE | 2024-03-06 14:02 | ECG_ITS ---
Test Reason : diff breathing Blood Pressure : / mmHG Vent. Rate : 117 BPM Atrial Rate : 117 BPM P-R Int : 164 ms QRS Dur : 088 ms QT Int : 324 ms P-R-T Axes : 046 047 055 degrees QTc Int : 451 ms Sinus tachycardia Otherwise normal ECG When compared to the previous EKG of Sinus tachycardia present Referred By: Maxine Watson Electronically Signed By:Juan Douglas
--- NOTE | 2024-03-06 14:05 | ED.SOB ---
HPI - SOB/Dyspnea General Chief Complaint: Upper Respiratory Symptoms Stated Complaint: Difficulty breathing, cough Time Seen by Provider: 03/06/24 14:19 Source: patient and per diem interpreter Mode of arrival: ambulatory Limitations: language barrier History of Present Illness HPI Narrative: Patient is a 68-year-old Sami-speaking female with history of T2DM, HTN presenting to the emergency department with complaint of nonproductive cough, shortness of breath, and fever since Sunday. Also reports that her glucose levels have been elevated at home recently. Complains of feeling lightheaded during coughing episodes. Reports some epigastric pain with coughing as well. Denies vomiting, diarrhea. Denies chest pain or palpitations. MD elicited complaint: shortness of breath and cough Onset (ago): day(s) Context: recent illness Known history of: diabetes Associated symptoms: fever, cough and wheezing Related Data Home Medications ?Medication ?Instructions ?Recorded ?Confirmed melatonin 10 mg capsule 10 mg PO BEDTIME PRN 11/03/20 12/18/23 insulin lispro 100 unit/mL 6 unit subcut TID 02/27/23 12/18/23 subcutaneous pen hydroxyzine pamoate 25 mg capsule 25 mg PO BEDTIME 09/11/23 12/18/23 (Vistaril) mirtazapine 7.5 mg tablet 7.5 mg PO DAILY 09/11/23 12/18/23 Previous Rx's ?Medication ?Instructions ?Recorded shower chair #1 ea 11/09/20 lancets 28 gauge (FreeStyle #100 ea 12/05/21 Lancets) blood sugar diagnostic (FreeStyle #100 ea 12/04/22 Lite Strips) insulin glargine 100 unit/mL (3 20 unit (0.2 mL) subcut QAM #15 mL 02/05/23 mL) subcutaneous pen (Lantus Solostar U-100 Insulin) blood sugar diagnostic (FreeStyle #50 ea 02/09/23 Precision [place] Strips) flash glucose scanning reader ##1 02/26/23 (FreeStyle Lisa 2 [place]) magnesium oxide 400 mg (241.3 mg 400 mg PO BEDTIME 30 days #30 tabs 06/08/23 magnesium) tablet gabapentin 100 mg capsule 100 mg PO BID #60 caps 07/11/23 diclofenac sodium 3 % topical gel 1 appl topical BID #100 grams 09/11/23 metformin 500 mg tablet 500 mg PO BID 90 days #180 tabs 09/26/23 empagliflozin 25 mg tablet 25 mg PO DAILY #90 tabs 12/07/23 (Jardiance) acetaminophen 500 mg tablet 500 mg PO Q6H PRN pain #30 tabs 12/22/23 (Tylenol Extra Strength) cephalexin 250 mg capsule 250 mg PO QID 5 days #20 caps 12/22/23 cyclobenzaprine 5 mg tablet 5 mg PO TID PRN muscle spasm #14 12/22/23 tabs pen needle, diabetic 33 gauge x #100 ea 12/26/23 (Comfort EZ Pen Forgan) semaglutide 0.25 mg or 0.5 mg (2 0.5 mg (0.736 mL) subcut QWEEK #3 01/21/24 mg/3 mL) subcutaneous pen injector mL (Medical Joyworks) flash glucose sensor (FreeStyle #2 kits 01/30/24 Lisa 2 Sensor kit) omeprazole 20 mg capsule,delayed 20 mg PO DAILY 90 days #90 caps 03/03/24 release albuterol sulfate 90 mcg/actuation 2 puff inhalation Q4-6H PRN 03/06/24 aerosol inhaler shortness of breath or wheezing #6.7 grams benzonatate 100 mg capsule 100 mg PO TID PRN cough #20 caps 03/06/24 Allergies Allergy/AdvReac Type Severity Reaction Status Date / Time No Known Allergies Allergy Verified 03/06/24 14:03 Review of Systems Review of Systems: As per HPI. Yes all other systems are reviewed and are negative Constitutional: Constitutional: Reports as per HPI PMFSH Past Medical History Medical History Fibroids PMB (postmenopausal bleeding) Osteopenia Dyslipidemia Diabetic polyneuropathy associated with type 2 diabetes mellitus Diabetes type 2, uncontrolled Diabetes 1.5, managed as type 1 Panic anxiety syndrome Hospital discharge follow-up Vitamin D deficiency Carpal tunnel syndrome Incontinence Hemorrhoids Tubal occlusion Insomnia Elevated cholesterol Depression Hypertension IDDM (insulin dependent diabetes mellitus) Surgical History History of neck surgery History of surgery History of colonoscopy History of hemorrhoidectomy History of carpal tunnel release History of bladder surgery S/P sinus surgery Hx of breast reduction, elective Hx of appendectomy H/O tubal ligation History of heart artery stent Family History Family History Father No problems noted. Mother Heart disease Lung cancer Brother Liver cancer Brother Renal cancer HTN (hypertension) Diabetes mellitus Maternal Grandfather No problems noted. Maternal Grandmother No problems noted. Paternal Grandfather No problems noted. Paternal Grandmother No problems noted. Maternal Uncle Diabetes mellitus Paternal Uncle Diabetes mellitus Son No problems noted. Daughter No problems noted. Social History Social History Housing: House Alcohol intake: current Alcohol intake frequency: holidays/special occasions only Patient Tobacco Use Status: Former Tobacco user Quit Date: 23 yrs ago e-Cigarette/Vaping Use: Never Used Advance Directives: No service: No Current occupational status: disabled Current occupation: right hand dominant Sexual orientation: Straight/Heterosexual Gender identity: Female Cognitive needs: No Hearing needs: No Vision needs: Yes Physical Exam Vital Signs: Vital Signs: Last Vital Signs Temp 98.6 F 03/06/24 16:40 Pulse 54 03/06/24 16:40 Resp 18 03/06/24 16:40 BP 137/68 03/06/24 16:11 Pulse Ox 100 03/06/24 16:40 O2 Del Method Room Air 03/06/24 16:40 BMI result Body Mass Index 27.6 Vital signs have been reviewed and appear to be correct. Blood pressure normal. Heart rate normal. Respiratory rate normal. Temperature normal. Oxygen saturation normal. Const: General: cooperative, healthy appearing and no acute distress Orientation/consciousness: oriented to person, oriented to place, oriented to time and patient oriented x3 Limitations: no limitations HEENT: Head: Yes normocephalic and Yes atraumatic Ears: external ears normal General nose exam: Normal external nose present Face and sinus: Yes face symmetric Mouth: oropharynx normal and moist mucous membranes Throat: Yes uvula midline Eyes: Pupils: Equal, round and reactive pupils present Neck: Neck: Yes normal visual inspection and Yes supple Resp: Effort & Inspection: normal respiratory effort and able to speak in complete sentences Auscultation: wheezes expiratory wheezes and throughout and diminished lung sounds diffuse Cardio: Rate: tachycardic Rhythm: regular rhythm Heart sounds: S1 normal heart sound present and S2 normal heart sound present GI: Palpation (GI): Soft to palpation and nontender Auscultation: normoactive bowel sounds : General: Yes no CVA tenderness Back/Spine/Pelvis: Back: no CVA tenderness Skin: General skin exam: elasticity normal and turgor normal Neuro: General: oriented to person, oriented to place, oriented to time, patient oriented x3, moves all extremities, no focal motor deficits and CN's II-XI intact bilaterally Cranial nerves: Yes Equal, round and reactive pupils present Cognition (Neuro): normal cognition Extrem: General: Yes full ROM, Yes no pedal edema and Yes no calf tenderness Psych: Mental Status: mental status grossly normal Affect: normal affect Thought process: Normal thought process present Course Course Course Narrative: This is a Rapid Medical Examination (RME) in triage, full HPI, ROS, assessment and plan per primary provider in the Main ED. 68 yo Sami peaking female with history of DM presents to the ER for evaluation of SOB, cough, epigastic pain and lightheadedness that have been worsening for the last 5 days. Fever was 100 at home. In triage temp 100.8, HR 120-130s, wheezing on exam. Plan: viral testing, CXR, septic workup, EKG Medications Administered Discontinued Medications Generic Name Dose Route Start Last Admin Trade Name Freq PRN Reason Stop Dose Admin Acetaminophen 975 mg 03/06/24 14:01 03/06/24 14:08 Acetaminophen 325 Mg Tablet PO 03/06/24 14:02 975 mg ONCE ONE Administration Albuterol Sulfate 2.5 mg/ 0 mg 03/06/24 14:21 03/06/24 14:27 Albuterol/Ipratropium 3 ml INHALE 03/06/24 14:22 1 dose ONCE ONE Administration Medical Decision Making Medical Decision Making MDM Narrative: Patient is a 68-year-old Sami-speaking female with history of T2DM, HTN presenting to the emergency department with complaint of nonproductive cough, shortness of breath, and fever since Sunday. On exam patient is awake, A+Ox3, tachycardic, VS WNL, afebrile, normal neurological exam without focal deficits, physical exam findings as above. Patient febrile in triage, fever resolved with Tylenol. Given reported symptoms and physical exam findings, initial differential includes viral illness, COVID, flu, RSV, bronchitis, pneumonia. Labs grossly within normal limits, no leukocytosis. X-ray notable for no evidence of pneumonia. My interpretation is in agreement with the radiologist's interpretation. Flu swab positive. EKG shows sinus tachycardia. Patient updated on results and all questions answered with historical interpreter present. Will send prescriptions for albuterol inhaler and benzonatate. Patient is outside the window for treatment with Tamiflu. Instructed patient to follow-up with primary care provider. Return precautions discussed. Patient verbalized understanding of and agreement with plan. Differential Diagnosis Differential Diagnoses: The differential diagnosis associated with the presentation includes As per [facility]. Admission/Observation Consideration of admission/observation: Escalation of care including admission/observation considered Patient would have been admitted to the hospital had their work up had any findings where hospital admission was appropriate and their clinical presentation warranted hospital admission. Lab Data [facility] Lab Attestation statement: I reviewed the patient's lab results. as per [facility] 03/06/24 14:21 03/06/24 14:21 Labs: Lab Results 03/06/24 03/06/24 Range/Units 14:21 14:48 WBC 3.4 L (4.8-10.8) X10*3/uL RBC 4.59 (4.20-5.50) X10*6/uL Hgb 13.1 (12.0-16.0) g/dl Hct 39.5 (37.0-47.0) % MCV 86.1 (80.0-98.0) fL MCH 28.5 (27.0-33.0) pg MCHC 33.2 (31.0-35.0) g/dl RDW 14.8 (11.0-16.0) % Plt Count 139 L D (160-400) X10*3/uL MPV 9.6 (9.4-12.3) fL Immature Gran % (Auto) 0.3 (0.0-0.4) % Neut % (Auto) 70.7 (45-73) % Lymph % (Auto) 23.0 (20-40) % [place] % (Auto) 5.4 (2-11) % Eos % (Auto) 0.3 (0-4) % Baso % (Auto) 0.3 (0-2) % Lymph # (Auto) 0.8 L (1.2-4.9) X10*3/uL [place] # (Auto) 0.2 (0.1-1.2) X10*3/uL Eos # (Auto) 0.0 (0.0-0.4) X10*3/uL Baso # (Auto) 0.0 (0.0-0.2) X10*3/uL Abs Immat Gran (auto) 0.01 (0.00-0.03) X10*3/uL Absolute Neuts (auto) 2.4 (2.0-8.3) x10*3/uL Absolute Nucleated RBC 0.000 (0.0-0.012) X10*3/uL Nucleated RBC % (auto) 0.0 (0.0-0.2) /100WBC Sodium 138 (135-145) mmol/L Potassium 4.1 (3.3-5.1) mmol/L Chloride 108 (96-108) mmol/L Carbon Dioxide 22 (22-29) mmol/L Anion Gap 12 (12-20) BUN 12 (9-16) mg/dL Creatinine 1.04 (0.5-1.4) mg/dL Estim Creat Clear Calc 50.2 Estimated GFR 53 Random Glucose 241 H (60-115) mg/dL Lactic Acid 2.0 (0.5-2.0) mmol/L Calcium 9.1 D (8.4-10.2) mg/dL Magnesium 1.9 (1.6-2.6) mg/dL Total Bilirubin 0.4 (0.0-1.0) mg/dL Direct Bilirubin 0.2 (0.0-0.5) mg/dL AST 108 H (5-31) U/L ALT 149 H (0-31) U/L Alkaline Phosphatase 115 (39-117) U/L Troponin I High Sens < 2.7 (<3.5-17.0) ng/L B-Natriuretic Peptide < 10 (<100) pg/mL Total Protein 8.4 H (6.5-8.0) g/dL Albumin 4.1 (3.5-5.0) g/dL Urine Color Yellow Urine Appearance Clear Urine pH 5.5 (5.0-9.0) Ur Specific [place] >= 1.030 H (1.005-1.025) Urine Protein Negative (Neg-Trace) mg/dL Urine Glucose (UA) >=1000 H (Negative) mg/dL Urine Ketones Negative (Negative) mg/dL Urine Blood Trace H (Negative) Urine Nitrite Negative (Negative) Ur Leukocyte Esterase Negative (Negative) Urine RBC 3-5 H (0-2) /HPF Urine WBC 0-5 (0-5) /HPF Ur Squamous Epith Cells 0-2 (0-2) /HPF Urine Bacteria None Seen (None Seen) Hyaline Casts 0-2 (0-2) /LPF Influenza Type A (PCR) POSITIVE A (Negative) Influenza Type B (PCR) NEGATIVE (Negative) RSV RNA Qual (PCR) NEGATIVE (Negative) SARS-CoV-2 RNA (RT-PCR) NEGATIVE (Negative) Independent Interpretation I performed an independent interpretation of an: EKG (sinus tachycardia, rate 117 bpm, normal [place] interval and QTc, no evidence of STEMI) and Plain X-Ray Interpretation: No evidence of pneumonia on chest x-ray Radiology Impression Discussion of test interpretation with radiology: I have reviewed the radiologist's reading. Radiologist Impression: XR/XR chest 1V IMPRESSION: No acute intrathoracic disease. External Record Review External record reviewed: Inpatient record, Office record and Outpatient record Prescription Management I considered prescription management with: Other Discharge Plan Discharge Clinical Impression: Influenza A Patient Disposition: Home, Self-Care Instructions: Influenza (DC), Flu Shot (Vaccine) for Adults (ED), Droplet Precautions (ED) Additional Instructions: You were evaluated in the emergency department today for cough and shortness of breath. Your flu test was positive. You should isolate at home for another day and continue to wear a mask while symptomatic after that. Your symptoms should improve over time with rest and fluids. You are being prescribed benzonatate which you can take every 8 hours as needed for cough. You are being prescribed an albuterol inhaler which you can use every 4-6 hours as needed for shortness of breath or wheezing. You can take 650 mg Tylenol or 600 mg ibuprofen every 6 hours as needed for fever or pain. Please follow-up with your primary care provider for any ongoing symptoms. Return to the emergency department if you develop worsening pain, fever not controlled with Tylenol and ibuprofen, chest pain, dizziness or lightheadedness, or any other concerning symptoms. Prescriptions: New benzonatate 100 mg capsule 100 mg PO TID PRN (Reason: cough) Qty: 20 0RF albuterol sulfate 90 mcg/actuation HFA aerosol inhaler 2 puff inhalation Q4-6H PRN (Reason: shortness of breath or wheezing) Qty: 6.7 0RF No Action (DME) shower chair Medium 0 .Route .MEDSUPPLY Qty: 1 0RF Rx Instructions: Shower chair (DME) lancets [FreeStyle Lancets] 28 gauge misc See Rx Instructions .ROUTE .MEDSUPPLY Qty: 100 11RF Rx Instructions: Three times a day (DME) FreeStyle Lite Strips Strip See Rx Instructions .ROUTE .MEDSUPPLY Qty: 100 11RF Rx Instructions: As directed three times a day insulin glargine [Lantus Solostar U-100 Insulin] 100 unit/mL (3 mL) insulin pen 20 unit subcut QAM Qty: 15 5RF (DME) FreeStyle Precision [place] Strips Strip See Rx Instructions .Route Qty: 50 5RF Rx Instructions: As directed once a day (DME) FreeStyle Lisa 2 [place] Misc See Rx Instructions .ROUTE .COMPLEX Qty: 1 0RF Dose Instruction: DIRECTED Rx Instructions: DIRECTED magnesium oxide 400 mg (241.3 mg magnesium) tablet 400 mg PO BEDTIME 30 Days Qty: 30 6RF Rx Instructions: may hold for loose stools gabapentin 100 mg capsule 100 mg PO BID Qty: 60 5RF metformin 500 mg tablet 500 mg PO BID 90 Days Qty: 180 1RF Jardiance 25 mg tablet 25 mg PO DAILY Qty: 90 1RF (DME) pen needle, diabetic [Comfort EZ Pen Forgan] 33 gauge x 5/32 needle See Rx Instructions .ROUTE .MEDSUPPLY Qty: 100 3RF Rx Instructions: As directed Ozempic 0.25 mg or 0.5 mg (2 mg/3 mL) pen injector 0.5 mg subcut QWEEK Qty: 3 4RF (DME) FreeStyle Lisa 2 Sensor Kit See Rx Instructions .ROUTE .COMPLEX Qty: 2 6RF Dose Instruction: USE DIRECTED. CHANGE EVERY 2 WEEKS. Rx Instructions: USE DIRECTED. CHANGE EVERY 2 WEEKS. omeprazole 20 mg capsule,delayed release(DR/EC) 20 mg PO DAILY 90 Days Qty: 90 0RF acetaminophen [Tylenol Extra Strength] 500 mg tablet 500 mg PO Q6H PRN (Reason: pain) Qty: 30 0RF cyclobenzaprine 5 mg tablet 5 mg PO TID PRN (Reason: muscle spasm) Qty: 14 0RF cephalexin 250 mg capsule 250 mg PO QID 5 Days Qty: 20 0RF mirtazapine 7.5 mg tablet 7.5 mg PO DAILY hydroxyzine pamoate [Vistaril] 25 mg capsule 25 mg PO BEDTIME diclofenac sodium 3 % gel 1 appl topical BID Qty: 100 0RF melatonin 10 mg capsule 10 mg PO BEDTIME PRN insulin lispro 100 unit/mL insulin pen 6 unit subcut TID Print Language: Sami
[2024-03-06] MEDS: Acetaminophen 325 MG TABLET 975 MG PO (14:08)
[2024-03-06 14:27] LABS: MANUAL DIFF FLAG NO
[2024-03-06] MEDS: Albuterol Sulfate 2.5 MG, Albuterol/Iprat 2.5/0.5MG 3 ML 3 ML INHALE (14:27)
[2024-03-06 14:29] VITALS: PULSE 116; RESP 22; O2SAT 95
[2024-03-06 14:31] LABS: Basophils Percent Auto 0.3 % (0-2); Eosinophils Percent Auto 0.3 % (0-4); Hematocrit 39.5 % (37.0-47.0); Hemoglobin 13.1 g/dl (12.0-16.0); Imm Gran Abs Auto 0.01 X10*3/uL (0.00-0.03); Imm Gran Pct Auto 0.3 % (0.0-0.4); Lymphocytes Absolute Auto 0.8 X10*3/uL (1.2-4.9); Mean Corpuscular HGB Conc 33.2 g/dl (31.0-35.0); Mean Corpuscular Hemoglobin 28.5 pg (27.0-33.0); Mean Corpuscular Volume 86.1 fL (80.0-98.0); Mean Platelet Volume 9.6 fL (9.4-12.3); Monocytes Absolute Auto 0.2 X10*3/uL (0.1-1.2); Monocytes Percent Auto 5.4 % (2-11); Neutrophils Absolute Auto 2.4 x10*3/uL (2.0-8.3); Neutrophils Percent Auto 70.7 % (45-73); Platelet Count 139 X10*3/uL (160-400); Red Blood Count 4.59 X10*6/uL (4.20-5.50); Red Cell Distribution Width 14.8 % (11.0-16.0); White Blood Count 3.4 X10*3/uL (4.8-10.8)
[2024-03-06 14:43] LABS: Alanine Aminotransferase 149 U/L (0-31); Albumin Level 4.1 g/dL (3.5-5.0); Alkaline Phosphatase 115 U/L (39-117); Anion Gap 12 (12-20); Aspartate Amino Transferase 108 U/L (5-31); Bilirubin Direct 0.2 mg/dL (0.0-0.5); Bilirubin Total 0.4 mg/dL (0.0-1.0); Blood Urea Nitrogen 12 mg/dL (9-16); Calcium 9.1 mg/dL (8.4-10.2); Carbon Dioxide 22 mmol/L (22-29); Chloride 108 mmol/L (96-108); Creatinine Clr Calc Pharmacy 50.2; Estimated Glomerular Filt Rate 53; Glucose Random 241 mg/dL (60-115); Magnesium 1.9 mg/dL (1.6-2.6); Potassium 4.1 mmol/L (3.3-5.1); Sodium 138 mmol/L (135-145); Total Protein 8.4 g/dL (6.5-8.0)
[2024-03-06 14:48] LABS: B Type Natriuretic Peptide < 10 pg/mL (<100)
[2024-03-06 14:55] LABS: Troponin-I High Sensitivity < 2.7 ng/L (<3.5-17.0)
[2024-03-06 15:00] LABS: Appearance Urine Clear; Color Urine Yellow; Glucose Urine UA >=1000 mg/dL (Negative); Leukocyte Esterase Urine Negative (Negative); Nitrite Urine Negative (Negative); PH 5.5 (5.0-9.0); Specific Gravity - Urine >= 1.030 (1.005-1.025); UMIC TRIGGER UACC YES; Urine Blood Trace (Negative); Urine Ketones Negative (Negative); Urine Protein Negative (Neg-Trace)
[2024-03-06 15:02] LABS: Bacteria Urine None Seen (None Seen); Hyaline Casts Urine 0-2 /LPF (0-2); Squamous Epithelial Cell Urine 0-2 /HPF (0-2); WBC Urine 0-5 /HPF (0-5)
[2024-03-06 15:17] LABS: Influenza A PCR POSITIVE (Negative); Influenza B PCR NEGATIVE (Negative); Resp Syncy Virus RNA Qual PCR NEGATIVE (Negative); SARS COV2 PCR INHOUSE NEGATIVE (Negative)
[2024-03-06 16:11] VITALS: BP 137/68; PULSE 115; RESP 20; TEMP 36.9; O2SAT 96
[2024-03-06 16:40] VITALS: PULSE 54; RESP 18; TEMP 37; O2SAT 100
[2024-03-06 17:50] VITALS: BP 137/68; PULSE 54; RESP 18; TEMP 37; O2SAT 100
== END 2024-03-06 17:51 | disposition home or self-care (01) ==
PROVIDERS: Physician Assistant; Emergency Provider Emergency Medicine; PCP Internal Medicine
DX: J10.1 Influenza due to other identified influenza virus with other respiratory manifestations (principal); R06.02 Shortness of breath; R00.0 Tachycardia, unspecified; E11.9 Type 2 diabetes mellitus without complications; I10 Essential (primary) hypertension; R05.9 Cough, unspecified; Z11.52 Encounter for screening for COVID-19; Z20.822 Contact with and (suspected) exposure to COVID-19; Z79.899 Other long term (current) drug therapy
CPT/HCPCS: 0241U; 36415; 71045; 80048; 80076; 81001; 83605; 83735; 83880; 84484; 85025; 87040; 93005; 94640; 99284

== ENCOUNTER → 2024-03-06 14:02 | Outpatient (BNV) | payer OTHER, SELFPAY | PROVIDERS: Emergency Provider Emergency Medicine; PCP Internal Medicine; Visit Provider Internal Medicine Cardiovascular Disease | DX: R06.00 Dyspnea, unspecified (principal) | CPT/HCPCS: 93010 ==

== ENCOUNTER 2024-03-14 10:28 | Outpatient (AMB) | payer OTHER, SELFPAY ==
--- NOTE | 2024-03-14 10:35 | MHC.PC.OV ---
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 Allergies No Known Allergies Allergy (Verified 03/14/24 10:36) Medication List - Last Reconciled 03/14/24 by Terrance Huitron MD acetaminophen (Tylenol Extra Strength) 500 mg PO Q6H PRN albuterol sulfate 90 mcg/actuation 2 puffs inhalation Q4-6H PRN benzonatate 100 mg PO TID PRN blood sugar diagnostic (FreeStyle Lite Strips) As directed three times a day blood sugar diagnostic (FreeStyle Precision [place] Strips) As directed once a day cephalexin 250 mg PO QID 5 days cyclobenzaprine 5 mg PO TID PRN diclofenac sodium 3% 1 appl topical BID empagliflozin (Jardiance) 25 mg PO DAILY flash glucose scanning reader (NanoMedical SystemsStyle Lisa 2 [place]) DIRECTED flash glucose sensor (FreeStyle Lisa 2 Sensor kit) USE DIRECTED. CHANGE EVERY 2 WEEKS. gabapentin 100 mg PO BID hydroxyzine pamoate (Vistaril) 25 mg PO BEDTIME insulin glargine (Lantus Solostar U-100 Insulin) 20 units (0.2 mL) subcut QAM insulin lispro 6 units subcut TID lancets (FreeStyle Lancets) Three times a day magnesium oxide 400 mg PO BEDTIME 30 days melatonin 10 mg PO BEDTIME PRN metformin 500 mg PO BID 90 days mirtazapine 7.5 mg PO DAILY omeprazole 20 mg PO DAILY 90 days pen needle, diabetic (Comfort EZ Pen [place]) As directed semaglutide (Ozempic) 0.5 mg (0.736 mL) subcut QWEEK [shower chair Shower chair] Tobacco use date assessed: 12/18/23 Fall risk assessment: No Falls in past year Last assessed Fall Risk: 03/14/24 Dental Screening Dental Screen Date: 12/18/23 HPI ER f/u HPI Details Patient is 68-year-old female came in today to have a follow-up after emergency room visit dated 03/06/2024 When she presented with a chief complaint of lightheadedness some coughing fits , she said symptoms are getting worse for the past 5 days and she is feeling short of breath along with having low-grade fever Patient have a history of type 2 diabetes Hypertension, depression, GERD On physical examination in emergency room she was found to have wheezes expiratory and threw out with diminished lung sounds diffuse Her labs were grossly within normal range without leukocytosis X-ray showed no pneumonia Flu swab was positive EKG showed sinus tachycardia She was out of window of Tamiflu After treatment patient was discharged home With a prescription of benzonatate 100 mg t.i.d. 20 tablets provided And albuterol inhaler She is gradually getting better still taking benzonatate On examination today her lungs are clear Continued to feel short of breath with exertion Patient is requesting [employer] machine , we will sent order to medical supply store Albuterol while sent She has appointment for physical examination next week [facility] Medical History Fibroids PMB (postmenopausal bleeding) Osteopenia Dyslipidemia Diabetic polyneuropathy associated with type 2 diabetes mellitus Diabetes type 2, uncontrolled Diabetes 1.5, managed as type 1 Panic anxiety syndrome Hospital discharge follow-up Vitamin D deficiency Carpal tunnel syndrome Incontinence Hemorrhoids Tubal occlusion Insomnia Elevated cholesterol Depression Hypertension IDDM (insulin dependent diabetes mellitus) Surgical History History of neck surgery History of surgery History of colonoscopy History of hemorrhoidectomy History of carpal tunnel release History of bladder surgery S/P sinus surgery Hx of breast reduction, elective Hx of appendectomy H/O tubal ligation History of heart artery stent Family History Father No problems noted. Mother Heart disease Lung cancer Brother Liver cancer Brother Renal cancer HTN (hypertension) Diabetes mellitus Maternal Grandfather No problems noted. Maternal Grandmother No problems noted. Paternal Grandfather No problems noted. Paternal Grandmother No problems noted. Maternal Uncle Diabetes mellitus Paternal Uncle Diabetes mellitus Son No problems noted. Daughter No problems noted. Social History Housing: House Alcohol intake: current Alcohol intake frequency: holidays/special occasions only Patient Tobacco Use Status: Former Tobacco user Quit Date: 23 yrs ago e-Cigarette/Vaping Use: Never Used service: No Current occupational status: disabled Current occupation: right hand dominant Sexual orientation: Straight/Heterosexual Gender identity: Female Cognitive needs: No Hearing needs: No Vision needs: Yes Questionnaire Thrive Questionnaire Date Thrive assessed: 12/18/23 MAYA-7 AMB Questionnaire MAYA-7 Date MAYA - 7 assessed: 12/18/23 Source: Developed by Drs. Octavio Quiles, Teagan Baig, Gumaro Fernandez and colleagues, with an educational nancy from [employer]. Review of Systems Const Denies chills and Denies fever(s) ENT Denies epistaxis and Denies nasal discharge Card Denies chest pain Resp Denies chest congestion and Denies hemoptysis GI Denies diarrhea and Denies nausea Skin/Breast Denies rash Neuro Reports no additional complaints Psych Reports no additional complaints Endo Reports no additional complaints Physical exam (Primary Care) Vital Signs: Last Vital Signs Pulse 83 03/14/24 10:36 BP 130/80 03/14/24 10:36 Pulse Ox 98 03/14/24 10:36 Oxygen Delivery Method Room Air 03/14/24 10:36 BMI result Body Mass Index 28.0 Tobacco/Smoking Status: Tobacco use Status Tobacco use date assessed 12/18/23 03/14/24 10:37 Patient Tobacco Use Status Former Tobacco user 03/14/24 10:37 e-Cigarette/Vaping Use Never Used 03/14/24 10:37 Thrive Assessment: Date of Thrive Assessment Date Thrive assessed 12/18/23 03/14/24 10:37 Const General: cooperative, comfortable and no acute distress Orientation/consciousness: patient oriented x3 HENMT Head: Yes normocephalic Eyes General: appearance normal, both eyes and all related structures Neck Neck: Yes supple Resp Effort & Inspection: normal respiratory effort, no cough and no stridor Cardio Rhythm: regular rhythm Heart sounds: S1 normal heart sound present and S2 normal heart sound present Skin General skin exam: turgor normal Neuro General: patient oriented x3, tone normal and moves all extremities Extrem Right lower extremity: no edema Left lower extremity: no edema Results AMB Hemoglobin A1c AMB Hemoglobin A1c 8.6 % Last Edit by Thuan Prater CMA on 03/14/24 10:56 Results Reviewed Results Reviewed: Laboratory Last Values Hgb A1c (Clinic) 8.6 % (4.0-6.0) H 03/14/24 10:56 Assessment and Plan Assessment & Plan (1) Exacerbation of asthma: Code(s): J45.901 - Unspecified asthma with (acute) exacerbation Qualifiers: Asthma persistence: persistent Asthma severity: moderate Qualified Code(s): J45.41 - Moderate persistent asthma with (acute) exacerbation (2) Influenza A: Code(s): J10.1 - Influenza due to other identified influenza virus with other respiratory manifestations (3) Shortness of breath: Code(s): R06.02 - Shortness of breath Plan Patient is 68-year-old female came in today to have a follow-up after emergency room visit dated 03/06/2024 When she presented with a chief complaint of lightheadedness some coughing fits , she said symptoms are getting worse for the past 5 days and she is feeling short of breath along with having low-grade fever Patient have a history of type 2 diabetes Hypertension, depression, GERD On physical examination in emergency room she was found to have wheezes expiratory and threw out with diminished lung sounds diffuse Her labs were grossly within normal range without leukocytosis X-ray showed no pneumonia Flu swab was positive EKG showed sinus tachycardia She was out of window of Tamiflu After treatment patient was discharged home With a prescription of benzonatate 100 mg t.i.d. 20 tablets provided And albuterol inhaler She is gradually getting better still taking benzonatate On examination today her lungs are clear Continued to feel short of breath with exertion Patient is requesting updraft machine , we will sent order to medical supply store Albuterol while sent She has appointment for physical examination next week Orders: Orders AMB Hemoglobin A1c Today Z13.9 - Encounter for screening, unspecified Medications: New albuterol sulfate 0.63 mg (3 mL) inhalation QID PRN 75 mL 0RF shortness of breath or wheezing [Updraft machine] As directed 1 ea 0RF J10.1 - Influenza due to other identified influenza virus with other respiratory manifestations, J45.901 - Unspecified asthma with (acute) exacerbation, R06.02 - Shortness of breath Coding Level of Care Code Est Pt Level 4 (25410) Diagnoses Moderate persistent asthma with exacerbation J45.41 Asthma persistence: persistent Asthma severity: moderate Influenza A J10.1 Shortness of breath R06.02
[2024-03-14 10:36] VITALS: BP 130/80; PULSE 83; O2SAT 98; BMI 28.0
== END 2024-03-14 11:28 | disposition home or self-care (01) ==
PROVIDERS: PCP Internal Medicine; Visit Provider Internal Medicine
DX: J45.41 Moderate persistent asthma with (acute) exacerbation (principal); J10.1 Influenza due to other identified influenza virus with other respiratory manifestations; R06.02 Shortness of breath; E11.9 Type 2 diabetes mellitus without complications
CPT/HCPCS: 83036; 99214

== ENCOUNTER 2024-03-14 12:58 | Outpatient (AMB) | payer OTHER, SELFPAY ==
--- NOTE | 2024-03-14 13:00 | MHC.OFFVIS ---
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 Follow-up ultrasound for fibroid stability. [facility] Medical History Fibroids PMB (postmenopausal bleeding) Osteopenia Dyslipidemia Diabetic polyneuropathy associated with type 2 diabetes mellitus Diabetes type 2, uncontrolled Diabetes 1.5, managed as type 1 Panic anxiety syndrome Hospital discharge follow-up Vitamin D deficiency Carpal tunnel syndrome Incontinence Hemorrhoids Tubal occlusion Insomnia Elevated cholesterol Depression Hypertension IDDM (insulin dependent diabetes mellitus) Surgical History History of neck surgery History of surgery History of colonoscopy History of hemorrhoidectomy History of carpal tunnel release History of bladder surgery S/P sinus surgery Hx of breast reduction, elective Hx of appendectomy H/O tubal ligation History of heart artery stent Family History Father No problems noted. Mother Heart disease Lung cancer Brother Liver cancer Brother Renal cancer HTN (hypertension) Diabetes mellitus Maternal Grandfather No problems noted. Maternal Grandmother No problems noted. Paternal Grandfather No problems noted. Paternal Grandmother No problems noted. Maternal Uncle Diabetes mellitus Paternal Uncle Diabetes mellitus Son No problems noted. Daughter No problems noted. Social History Housing: House Alcohol intake: current Alcohol intake frequency: holidays/special occasions only Patient Tobacco Use Status: Former Tobacco user Quit Date: 23 yrs ago e-Cigarette/Vaping Use: Never Used service: No Current occupational status: disabled Current occupation: right hand dominant Sexual orientation: Straight/Heterosexual Gender identity: Female Cognitive needs: No Hearing needs: No Vision needs: Yes Review of Systems Const All systems reviewed & are unremarkable except as noted in HPI and below Endo Reports no additional complaints Physical Exam Vital Signs: Last Vital Signs BP 122/74 03/14/24 13:10 BMI result Body Mass Index 27.7 Const General: cooperative, healthy appearing and no acute distress Psych Appearance: well kempt Attitude: cooperative Thought process: Normal thought process present Results AMB Hemoglobin A1c AMB Hemoglobin A1c 8.6 % Last Edit by Thuan Prater CMA on 03/14/24 10:56 Results Reviewed Results Reviewed: [address] [address] Ultrasound Report Signed Patient: Emma Thrasher MR#: [id number] : 1955 Acct:[id number] Age/Sex: 68 / F ADM Date: 02/27/24 Loc: HO.US Attending Dr: Jamaica Greenberg CNM Ordering Physician: Jamaica Greenberg CNM Date of Service: 02/27/24 Procedure(s): US pelvic and transvaginal Accession Number(s): [id number] cc: Terrance Huitron MD; Jamaica Greenberg CNM~ EXAMINATION: US PELVIS CLINICAL INFORMATION: Fibroid stability, postmenopausal. COMPARISON: 10/05/2024 TECHNIQUE: Ultrasound of the pelvis is performed using both transabdominal and transvaginal transducers along with Doppler. Transvaginal imaging is performed due to inadequate visualization transabdominally. FINDINGS: The uterus measures 4.8 x 2.6 x 4.2 cm and is anteverted. A 1.0 x 0.7 x 0.8 cm fibroid in the posterior body of the uterus previously measured 0.7 x 0.6 x 0.7 cm on 12/05/2023. No significant free fluid. Complex nabothian cysts. Endometrial thickness is 3 mm. Right ovary measures 2.0 x 1.2 x 1.6 cm, volume 2.0 mL. Left ovary measures 1.5 x 1.3 x 1.4 cm, volume 1.4 mL. Bilateral ovaries are grossly unremarkable, although visualization is substantially limited due to bowel gas. No significant free fluid. US/US pelvic and transvaginal IMPRESSION: 1. Single 1.0 cm fibroid, previously 0.7 cm. 2. Endometrial thickness is 3 mm. 3. Grossly unremarkable bilateral ovaries. Dictated By: Yvonne Antonie MD Signed By: <Electronically signed by Yvonne Antoine MD in OV> 03/04/24 0746 DD/ 1125 TD/TT: Nurse Anesthetist: Assessment & Plan Assessment & Plan (1) Fibroids: Code(s): D21.9 - Benign neoplasm of connective and other soft tissue, unspecified Category: Medical (2) Encounter to discuss test results: Code(s): Z71.2 - Person consulting for explanation of examination or test findings Plan Discussed: Fibroids are stable and have somewhat decreased in size. Advised to call if there was any pelvic pain, pressure bloating, or postmenopausal bleeding any time these symptoms occur for evaluation sooner than her annual appointment. All of her questions and concerns were addressed to the best of my ability and shared decision making. She is agreeable to the plan of care. Appointment for annual is March 2024. This note is constructed using voice recognition software. While every effort has been made to ensure accuracy, auto fleet maintenance manager errors may have been included.
[2024-03-14 13:10] VITALS: BP 122/74; BMI 27.7
== END 2024-03-14 13:42 | disposition home or self-care (01) ==
PROVIDERS: PCP Internal Medicine; Visit Provider Advanced Practice Midwife
DX: D21.9 Benign neoplasm of connective and other soft tissue, unspecified (principal); Z71.2 Person consulting for explanation of examination or test findings
CPT/HCPCS: 99213

== ENCOUNTER → 2024-03-14 12:58 | Outpatient (BNVA) | payer OTHER, SELFPAY | PROVIDERS: PCP Internal Medicine; Visit Provider Advanced Practice Midwife | DX: Z71.2 Person consulting for explanation of examination or test findings (principal); D21.9 Benign neoplasm of connective and other soft tissue, unspecified | CPT/HCPCS: 99212 ==

== ENCOUNTER 2024-03-18 11:02 | Outpatient (AMB) | payer OTHER, SELFPAY ==
[2024-03-18 11:06] VITALS: BP 124/72; PULSE 91; O2SAT 97; BMI 27.7
--- NOTE | 2024-03-18 11:06 | A.OFFPC_ITS ---
Vital Signs 3 03/18/24 11:06 Height 5 ft 3 in Weight 156 lb 8 oz BMI 27.7 BP 124/72 Blood Pressure Location Rt brachial Position Sitting Pulse 91 Pulse Source Pulse Oximeter Pulse Oximetry (%) 97 Oxygen Delivery Method Room Air Intake Visit Reasons: PE Allergies No Known Allergies Allergy (Verified 03/18/24 11:08) Medication List - Last Reconciled 03/18/24 by Terrance Huitron MD acetaminophen (Tylenol Extra Strength) 500 mg PO Q6H PRN albuterol sulfate 90 mcg/actuation 2 puffs inhalation Q4-6H PRN albuterol sulfate 0.63 mg (3 mL) inhalation QID PRN blood sugar diagnostic (FreeStyle Lite Strips) As directed three times a day blood sugar diagnostic (FreeStyle Precision [place] Strips) As directed once a day empagliflozin (Jardiance) 25 mg PO DAILY flash glucose scanning reader (FreeStyle Lisa 2 [place]) DIRECTED flash glucose sensor (FreeStyle Lisa 2 Sensor kit) USE DIRECTED. CHANGE EVERY 2 WEEKS. insulin glargine (Lantus Solostar U-100 Insulin) 20 units (0.2 mL) subcut QAM insulin lispro 6 units subcut TID lancets (FreeStyle Lancets) Three times a day magnesium oxide 400 mg PO BEDTIME 30 days melatonin 10 mg PO BEDTIME PRN metformin 500 mg PO BID 90 days mirtazapine 7.5 mg PO DAILY omeprazole 20 mg PO DAILY 90 days pen needle, diabetic (Comfort EZ Pen [place]) As directed semaglutide (Ozempic) 0.5 mg (0.736 mL) subcut QWEEK [shower chair Shower chair] [Updraft machine As directed] Tobacco use date assessed: 03/18/24 Fall risk assessment: No Falls in past year Last assessed Fall Risk: 03/18/24 Dental Screening Dental Screen Date: 03/18/24 Did you have a dental visit in the last 12 months?: Yes Did you have a dental problem in the last 6 months where you did not have access to dental care?: No Was dental information given to patient?: Patient has dentist HPI PE 2 HPI0 Details Physical exam appointment, patient have a history of mild asthma, diabetes mellitus, difficulty sleeping, chronic GERD Atherosclerotic heart disease, nephropathy Mammogram and Pap smear up-to-date Due for colonoscopy, I did send referral in 2021 but patient says nobody called her New referral created patient have a history of tubular adenoma Her hemoglobin A1c came back at 8.6, I am increasing Ozempic to 1 mg I have stopped metformin as her GFR is 54 She is having pain in her left wrist and is requesting orthopedic referral which I have placed for her Labs done recently reviewed LFTs are slightly elevated we will repeat it again in 3 months Medication list reviewed [facility] Medical History Fibroids PMB (postmenopausal bleeding) Osteopenia Dyslipidemia Diabetic polyneuropathy associated with type 2 diabetes mellitus Diabetes type 2, uncontrolled Diabetes 1.5, managed as type 1 Panic anxiety syndrome Hospital discharge follow-up Vitamin D deficiency Carpal tunnel syndrome Incontinence Hemorrhoids Tubal occlusion Insomnia Elevated cholesterol Depression Hypertension IDDM (insulin dependent diabetes mellitus) Surgical History History of neck surgery History of surgery History of colonoscopy History of hemorrhoidectomy History of carpal tunnel release History of bladder surgery S/P sinus surgery Hx of breast reduction, elective Hx of appendectomy H/O tubal ligation History of heart artery stent Family History Father No problems noted. Mother Heart disease Lung cancer Brother Liver cancer Brother Renal cancer HTN (hypertension) Diabetes mellitus Maternal Grandfather No problems noted. Maternal Grandmother No problems noted. Paternal Grandfather No problems noted. Paternal Grandmother No problems noted. Maternal Uncle Diabetes mellitus Paternal Uncle Diabetes mellitus Son No problems noted. Daughter No problems noted. Social History Housing: House Alcohol intake: current Alcohol intake frequency: holidays/special occasions only Patient Tobacco Use Status: Former Tobacco user Quit Date: 23 yrs ago e-Cigarette/Vaping Use: Never Used service: No Current occupational status: disabled Current occupation: right hand dominant Sexual orientation: Straight/Heterosexual Gender identity: Female Cognitive needs: No Hearing needs: No Vision needs: Yes Questionnaire Thrive Questionnaire Date Thrive assessed: 12/18/23 AUDIT C Alcohol Use Questionnaire (AUDIT-C) 1. How often do you have a drink containing alcohol?: Never 3. How often do you have six or more drinks on one occasion?: Never Total Score: 0 Score Reviewed/Action Taken: Yes MAYA-7 AMB Questionnaire MAYA-7 Date MAYA - 7 assessed: 12/18/23 Source: Developed by Drs. Octavio Quiles, Teagan Baig, Gumaro Fernandez and colleagues, with an educational nancy from [employer]. Review of Systems Const Denies chills, Denies fever(s) and Denies headache(s) Eyes Denies blurry vision ENT Denies headache(s), Denies nasal discharge, Denies nasal obstruction, Denies odynophagia and Denies sinus pain Card Denies chest pain at rest and Denies chest pain with activity Resp Denies cough and Denies hemoptysis GI Denies diarrhea, Denies odynophagia, Denies vomiting and Denies hematemesis Reports as per HPI Musc Denies abnormal gait Skin/Breast Reports as per HPI Neuro Denies Neuro-related abnormal movements, Denies Abnormal speech present, Denies abnormal gait, Denies headache(s) and Denies Sensory deficit (Neuro) Psych Denies mood swings and Denies paranoia Endo Reports as per HPI Baldemar/Lymph Reports as per HPI Aller/Immun Reports as per HPI Physical exam (Primary Care) Vital Signs: Last Vital Signs Pulse 91 03/18/24 11:06 BP 124/72 03/18/24 11:06 Pulse Ox 97 03/18/24 11:06 Oxygen Delivery Method Room Air 03/18/24 11:06 BMI result Body Mass Index 27.7 Tobacco/Smoking Status: Tobacco use Status Tobacco use date assessed 03/18/24 03/18/24 11:12 Patient Tobacco Use Status Former Tobacco user 03/18/24 11:12 e-Cigarette/Vaping Use Never Used 03/18/24 11:12 Thrive Assessment: Date of Thrive Assessment Date Thrive assessed 12/18/23 03/18/24 11:12 Const General: cooperative, comfortable and no acute distress Orientation/consciousness: patient oriented x3 HENMT Head: Yes normocephalic and Yes atraumatic Eyes General: appearance normal, both eyes and all related structures Pupils: Equal, round and reactive pupils present EOM: EOMs intact bilaterally Neck Neck: Yes supple and No lymphadenopathy Thyroid: Thyroid normal Lymphatic: no lymphadenopathy noted Resp Effort & Inspection: normal respiratory effort and able to speak in complete sentences Auscultation: clear to auscultation bilaterally Cardio Heart sounds: S1 normal heart sound present and S2 normal heart sound present GI Palpation (GI): Soft to palpation and nontender Auscultation: normal bowel sounds General: Yes no CVA tenderness Back/Spine/Pelvis Back: no CVA tenderness Skin General skin exam: elasticity normal and turgor normal Neuro Other: Sensory grossly intact General: patient oriented x3 and gait normal Cranial nerves: Yes Equal, round and reactive pupils present Speech: No Abnormal speech present Sensory Exam: No Sensory deficit (Neuro) Coordination: tandem gait normal and Romberg test negative Extrem General: Yes normal exam except as noted and No edema Elbow/forearm/wrist images: 2 1. Pain with palpation, and movement of the list radial pulse 2 +, fingers with full range of motion no pain Assessment and Plan Assessment & Plan (1) Encounter for general adult medical examination with abnormal findings: Code(s): Z00.01 - Encounter for general adult medical examination with abnormal findings (2) Colon cancer screening: Code(s): Z12.11 - Encounter for screening for malignant neoplasm of colon (3) Pain in left wrist: Code(s): M25.532 - Pain in left wrist (4) Hypertension: Code(s): I10 - Essential (primary) hypertension Qualifiers: Hypertension type: essential hypertension Qualified Code(s): I10 - Essential (primary) hypertension (5) Panic anxiety syndrome: Code(s): F41.0 - Panic disorder [episodic paroxysmal anxiety] (6) Diabetic polyneuropathy associated with type 2 diabetes mellitus: Code(s): E11.42 - Type 2 diabetes mellitus with diabetic polyneuropathy (7) Dyslipidemia: Code(s): E78.5 - Hyperlipidemia, unspecified (8) Atherosclerotic cardiovascular disease: Code(s): I25.10 - Atherosclerotic heart disease of [place] coronary artery without angina pectoris (9) Type 2 diabetes mellitus with unspecified complications: Code(s): E11.8 - Type 2 diabetes mellitus with unspecified complications (10) LFT elevation: Code(s): R79.89 - Other specified abnormal findings of blood chemistry Plan Physical exam appointment, patient have a history of mild asthma, diabetes mellitus, difficulty sleeping, chronic GERD Atherosclerotic heart disease, nephropathy Mammogram and Pap smear up-to-date Due for colonoscopy, I did send referral in 2021 but patient says nobody called her New referral created patient have a history of tubular adenoma Her hemoglobin A1c came back at 8.6, I am increasing Ozempic to 1 mg I have stopped metformin as her GFR is 54 She is having pain in her left wrist and is requesting orthopedic referral which I have placed for her Labs done recently reviewed LFTs are slightly elevated we will repeat it again in 3 months Medication list reviewed Orders: Orders 2 Hemoglobin A1c 3 Months E11.42 - Type 2 diabetes mellitus with diabetic polyneuropathy, E11.8 - Type 2 diabetes mellitus with unspecified complications, E78.5 - Hyperlipidemia, unspecified, F41.0 - Panic disorder [episodic paroxysmal anxiety], I10 - Essential (primary) hypertension, I25.10 - Atherosclerotic heart disease of [place] coronary artery without angina pectoris, R79.89 - Other specified abnormal findings of blood chemistry Comprehensive Met. Panel 3 Months E11.42 - Type 2 diabetes mellitus with diabetic polyneuropathy, E11.8 - Type 2 diabetes mellitus with unspecified complications, E78.5 - Hyperlipidemia, unspecified, F41.0 - Panic disorder [episodic paroxysmal anxiety], I10 - Essential (primary) hypertension, I25.10 - Atherosclerotic heart disease of [place] coronary artery without angina pectoris LDL Cholesterol Direct 3 Months E11.42 - Type 2 diabetes mellitus with diabetic polyneuropathy, E11.8 - Type 2 diabetes mellitus with unspecified complications, E78.5 - Hyperlipidemia, unspecified, F41.0 - Panic disorder [episodic paroxysmal anxiety], I10 - Essential (primary) hypertension, I25.10 - Atherosclerotic heart disease of [place] coronary artery without angina pectoris Microalbumin, Random (w Creat) 3 Months E11.42 - Type 2 diabetes mellitus with diabetic polyneuropathy, E11.8 - Type 2 diabetes mellitus with unspecified complications, E78.5 - Hyperlipidemia, unspecified, F41.0 - Panic disorder [episodic paroxysmal anxiety], I10 - Essential (primary) hypertension, I25.10 - Atherosclerotic heart disease of [place] coronary artery without angina pectoris Referrals 2 Gastroenterology Referral Z12.11 - Encounter for screening for malignant neoplasm of colon Orthopedics Referral M25.532 - Pain in left wrist Medications: Changed 2 From semaglutide (Ozempic) 0.5 mg (0.736 mL) subcut QWEEK 3 mL 4RF To semaglutide 1 mg (0.75 mL) subcut QWEEK 3 mL 4RF Discontinued 2 metformin Discontinued Reason: Doctor's Order 500 mg PO BID 90 days 180 tabs 1RF E11.65 - Type 2 diabetes mellitus with hyperglycemia Coding Level of Care Code Est Pt Prev Care >65y(16161) Diagnoses Encounter for general adult medical examination with abnormal findings Z00.01 Colon cancer screening Z12.11 Pain in left wrist M25.532 Essential hypertension I10 Hypertension type: essential hypertension Panic anxiety syndrome F41.0 Diabetic polyneuropathy associated with type 2 diabetes mellitus E11.42 Dyslipidemia E78.5 Atherosclerotic cardiovascular disease I25.10 Type 2 diabetes mellitus with unspecified complications E11.8 LFT elevation R79.89
== END 2024-03-18 11:25 | disposition home or self-care (01) ==
PROVIDERS: Visit Provider Internal Medicine
DX: Z00.00 Encounter for general adult medical examination without abnormal findings (principal); E11.42 Type 2 diabetes mellitus with diabetic polyneuropathy; Z12.11 Encounter for screening for malignant neoplasm of colon; M25.532 Pain in left wrist; I10 Essential (primary) hypertension; F41.0 Panic disorder [episodic paroxysmal anxiety]; E78.5 Hyperlipidemia, unspecified; I25.10 Atherosclerotic heart disease of native coronary artery without angina pectoris; R79.89 Other specified abnormal findings of blood chemistry
CPT/HCPCS: 99397

== ENCOUNTER 2024-04-05 13:14 | Emergency (ER) | payer OTHER, SELFPAY ==
--- NOTE | ~2024-04-05 | XR_ITS ---
EXAMINATION: XR WRIST, LEFT CLINICAL INFORMATION: Pain and swelling COMPARISON: X-ray 03/19/2019 TECHNIQUE: PA, lateral, and oblique views of the left wrist. FINDINGS: No visible acute fracture or dislocation. Alignment is anatomic. No significant joint space loss.. Carpal alignment is maintained. No erosions or abnormal soft tissue calcifications. XR/XR wrist LT 2V IMPRESSION: No acute osseous abnormality.
[2024-04-05 13:37] VITALS: BP 125/65; PULSE 98; RESP 177; TEMP 36.5; O2SAT 98; BMI 27.6
--- NOTE | 2024-04-05 13:42 | ED_ITS ---
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 She reports pain is sharp in character and exacerbated with wrist movement. Admits it has been difficulty to hold things with her left hand due to the pain. Pain is not worse in the morning. Admits to numerous surgeries on bilateral wrists secondary to tendinitis and carpal tunnel. Last surgery on left wrist was approximately 2 years ago. She has not been taking anything for the pain/discomfort at home. She does not use a wrist brace at home. Denies recent injury or trauma. Denies known tick or insect bites. Denies fever, chills, N/V, numbness/tingling in the left upper extremity. 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 Related Data Home Medications ?Medication ?Instructions ?Recorded ?Confirmed melatonin 10 mg capsule 10 mg PO BEDTIME PRN 11/03/20 03/18/24 insulin lispro 100 unit/mL 6 unit subcut TID 02/27/23 03/18/24 subcutaneous pen mirtazapine 7.5 mg tablet 7.5 mg PO DAILY 09/11/23 03/18/24 Previous Rx's ?Medication ?Instructions ?Recorded shower chair #1 ea 11/09/20 lancets 28 gauge (FreeStyle #100 ea 12/05/21 Lancets) blood sugar diagnostic (FreeStyle #100 ea 12/04/22 Lite Strips) insulin glargine 100 unit/mL (3 20 unit (0.2 mL) subcut QAM #15 mL 02/05/23 mL) subcutaneous pen (Lantus Solostar U-100 Insulin) blood sugar diagnostic (FreeStyle #50 ea 02/09/23 Precision [place] Strips) flash glucose scanning reader ##1 02/26/23 (FreeStyle Lisa 2 [place]) magnesium oxide 400 mg (241.3 mg 400 mg PO BEDTIME 30 days #30 tabs 06/08/23 magnesium) tablet empagliflozin 25 mg tablet 25 mg PO DAILY #90 tabs 12/07/23 (Jardiance) acetaminophen 500 mg tablet 500 mg PO Q6H PRN pain #30 tabs 12/22/23 (Tylenol Extra Strength) pen needle, diabetic 33 gauge x #100 ea 12/26/23 5/32 (Comfort EZ [place]) flash glucose sensor (FreeStyle #2 kits 01/30/24 Lisa 2 Sensor kit) omeprazole 20 mg capsule,delayed 20 mg PO DAILY 90 days #90 caps 03/03/24 release albuterol sulfate 90 mcg/actuation 2 puff inhalation Q4-6H PRN 03/06/24 aerosol inhaler shortness of breath or wheezing #6.7 grams Updraft machine #1 ea 03/14/24 albuterol sulfate 0.63 mg/3 mL 0.63 mg (3 mL) inhalation QID PRN 03/14/24 solution for nebulization shortness of breath or wheezing #75 mL semaglutide 1 mg/dose (4 mg/3 mL) 1 mg (0.75 mL) subcut QWEEK #3 mL 03/18/24 subcutaneous pen injector naproxen 500 mg tablet 500 mg PO Q8-12H PRN pain (scale 04/05/24 score 4-6) #30 tabs prednisone 20 mg tablet 20 mg PO DAILY 5 days #5 tabs 04/05/24 Allergies Allergy/AdvReac Type Severity Reaction Status Date / Time No Known Allergies Allergy Verified 04/05/24 13:44 Review of Systems Review of Systems: Constitutional: No fever, chills, fatigue, night sweats, weight changes ENT/Mouth: No ear pain, hearing loss, nasal congestion, sinus pain, rhinorrhea, sore throat Eyes: No eye pain, swelling, redness, vision changes, discharge Cardio: No chest pain, palpitations, IRENE, orthopnea, peripheral edema Pulm: No SOB, cough, sputum, wheezing, dyspnea, hemoptysis GI: No nausea, vomiting, hematemesis, abdominal pain, diarrhea, constipation, hematochezia, melena : No irregular bleeding, dysuria, frequency, urgency, hesitancy, hematuria, flank pain, urinary flow changes, urinary incontinence or retention MSK: No back pain, neck pain, joint pain, myalgias, +left wrist pain Skin: No lesions, rashes Neuro: No weakness, numbness, paresthesias, LOC, dizziness, headache Psych: No anxiety/panic, depression, SI/HI, AH/VH All other systems reviewed and are negative. COUNT INCLUDES [facility] Past Medical History Attestation statement: The following information was validated with the patient. Source: old records reviewed and nursing notes reviewed Medical History Fibroids PMB (postmenopausal bleeding) Osteopenia Dyslipidemia Diabetic polyneuropathy associated with type 2 diabetes mellitus Diabetes type 2, uncontrolled Diabetes 1.5, managed as type 1 Panic anxiety syndrome Hospital discharge follow-up Vitamin D deficiency Carpal tunnel syndrome Incontinence Hemorrhoids Tubal occlusion Insomnia Elevated cholesterol Depression Hypertension IDDM (insulin dependent diabetes mellitus) Surgical History History of neck surgery History of surgery History of colonoscopy History of hemorrhoidectomy History of carpal tunnel release History of bladder surgery S/P sinus surgery Hx of breast reduction, elective Hx of appendectomy H/O tubal ligation History of heart artery stent Family History Family History Father No problems noted. Mother Heart disease Lung cancer Brother Liver cancer Brother Renal cancer HTN (hypertension) Diabetes mellitus Maternal Grandfather No problems noted. Maternal Grandmother No problems noted. Paternal Grandfather No problems noted. Paternal Grandmother No problems noted. Maternal Uncle Diabetes mellitus Paternal Uncle Diabetes mellitus Son No problems noted. Daughter No problems noted. Social History Social History Housing: House Alcohol intake: current Alcohol intake frequency: holidays/special occasions only Patient Tobacco Use Status: Former Tobacco user Quit Date: 23 yrs ago e-Cigarette/Vaping Use: Never Used Advance Directives: No Advance Directives Information Provided: Yes Do you have a plan to hurt others: No Plan service: No Current occupational status: disabled Current occupation: right hand dominant Sexual orientation: Straight/Heterosexual Gender identity: Female Cognitive needs: No Hearing needs: No Vision needs: Yes Physical Exam 2 Vital Signs: Vital Signs: Last Vital Signs Temp 97.8 F 04/05/24 15:47 Pulse 78 04/05/24 15:47 Resp 18 04/05/24 15:47 BP 112/67 04/05/24 15:47 Pulse Ox 98 04/05/24 15:47 O2 Del Method Room Air 04/05/24 15:47 BMI result Body Mass Index 27.6 Vital signs stable, afebrile Const: General: cooperative, healthy appearing, comfortable and no acute distress Orientation/consciousness: patient oriented x3 Limitations: no limitations HEENT: Head: Yes normal to inspection, Yes No palpable skull fracture present, Yes normocephalic and Yes atraumatic Eyes: General: appearance normal, both eyes and all related structures Conjunctivae: conjunctivae normal Sclerae: sclerae normal Pupils: Equal, round and reactive pupils present Neck: Neck: Yes normal visual inspection Resp: Effort & Inspection: normal respiratory effort and able to speak in complete sentences Auscultation: clear to auscultation bilaterally Cardio: Rate: regular rate Rhythm: regular rhythm Skin: General skin exam: no rashes or lesions noted Neuro: Other: Strength 5/5 intact throughout.?Sensation intact to light touch.? Neurovascular intact distally.? General: patient oriented x3 Cranial nerves: Yes Equal, round and reactive pupils present Extrem: Other: + left wrist without overlying skin altman ges or deformity. Healed horizontal scar noted to left dorsal wrist status post carpal tunnel release. Tender to palpation over the dorsal aspect of left wrist extending into radial aspect of left thumb. No palpable deformity, warmth, fluctuance, crepitus. Full range of motion intact to left wrist with pain induced on flexion. Full range of motion intact to left elbow and left shoulder. Positive Tinel and Phalen sign to left wrist. Process Server strength intact. [id number] opposition intact. Strength intact. Course Course Course Narrative: This is a rapid medical exam completed by Gato GUADARRAMA: Additional HPI, ROS, PE not included below will be deferred to primary provider. Complaints of strong pain and swelling in the left wrist for the past several months. Denies trauma, overuse injury, fever, erythema, ecchymosis. Reports several surgeries in bilateral wrists including trigger finger and carpal tunnel release surgery Plan Xray, ibuprofen Reevaluation(s) Reevaluation #1: 1530-- Patient's x-ray does not exhibit acute pathology. Etiology of pain likely secondary to carpal tunnel syndrome verses tendonitis. Patient's supplied with wrist brace. Will send prednisone and naproxen to pharmacy. Advised patient to monitor blood sugars while taking prednisone. Will provide ortho referral. Patient has remained stable throughout ED visit today. Discussed worrisome signs and symptoms and when to return to the ED. All questions answered at this time. Patient is agreeable with disposition and stable for discharge. Medications Administered Discontinued Medications Generic Name Dose Route Start Last Admin Trade Name Elsa PRN Reason Stop Dose Admin Ibuprofen 600 mg 04/05/24 13:44 04/05/24 13:51 Ibuprofen 600 Mg Tablet PO 04/05/24 13:45 600 mg ONCE ONE Administration Medical Decision Making Medical Decision Making [facility] Narrative: 68 year old Armenian speaking female with pmhx significant for tendinitis, bilateral carpal tunnel syndrome, postmenopausal bleeding, fibroids, type 2 diabetes, diabetic neuropathy, depression, and hypertension presents to the ED today for evaluation of left wrist pain x1 month. On exam, left wrist without overlying skin changes or deformity. Healed horizontal scar noted to left dorsal wrist status post carpal tunnel release. Tender to palpation over the dorsal aspect of left wrist extending into radial aspect of left thumb. No palpable deformity, warmth, fluctuance, crepitus. Full range of motion intact to left wrist with pain induced on flexion. Full range of motion intact to left elbow and left shoulder. Positive Tinel and Phalen sign to left wrist. Process Server strength intact. [id number] opposition intact. Strength intact. Differential diagnosis includes carpal tunnel syndrome, tendinitis, fracture, ligament/tendon injury. Unlikely gout, pseudogout, septic joint, Lyme arthritis, insect or tick-borne pathology, neurovascular compromise, compartment syndrome, threat to limb. Xrays and motrin ordered prior to my assumption of care. Patient is still endorses pain to wrist. Tylenol ordered. Wrist splint ordered. Plan for review of x-rays and disposition. Differential Diagnosis Differential Diagnoses: The differential diagnosis associated with the presentation includes as above. Admission/Observation Not indicated Lab Data [facility] Lab Attestation statement: I reviewed the patient's lab results. As above Labs: Lab Results 04/05/24 Range/Units 14:48 POC Glucose 238 H (60-115) mg/dL Independent Interpretation I performed an independent interpretation of an: Plain X-Ray Interpretation: X-ray of left wrist does not demonstrate acute fracture, agree with radiologist's interpretation. Radiology Impression Discussion of test interpretation with radiology: I have reviewed the radiologist's reading. Radiologist Impression: EXAMINATION: XR WRIST, LEFT CLINICAL INFORMATION: Pain and swelling COMPARISON: X-ray 03/19/2019 TECHNIQUE: PA, lateral, and oblique views of the left wrist. FINDINGS: No visible acute fracture or dislocation. Alignment is anatomic. No significant joint space loss.. Carpal alignment is maintained. No erosions or abnormal soft tissue calcifications. XR/XR wrist LT 2V IMPRESSION: No acute osseous abnormality. External Record Review External record reviewed: Inpatient record, Office record, Outpatient record, Prior outpatient labs, Prior outpatient radiology, Primary care record and Outside ED record Prescription Management I considered prescription management with: Pain Medication and Other (prednisone) Chronic Conditions Patient?s care impacted by: Other (carpal tunnel, tendinitis) Procedures Orthopedic Splinting/Casting Injury #1: Side: left Upper Extremity Injury Location: wrist Upper Extremity Immobilizer: wrist splint Critical Care Time Critical Care Time Critical Care Time: No Discharge Plan Discharge Clinical Impression: Acute carpal tunnel syndrome of left wrist Patient Disposition: Home, Self-Care Instructions: Steroid Joint Injection (DC), Carpal Tunnel Surgery (DC), Electromyography (DC) Additional Instructions: The xrays of your left wrist do not demonstrate fracture or other pathology. Etiology of your pain is likely due to carpal tunnel syndrome vs tendinitis. You were provided with a wrist splint for comfort. Prednisone is a steroid that has been sent to your pharmacy for you to take for the next 5 days. Please make sure you are monitoring your blood sugar at home as prednisone has a tendency of increasing your sugars. If you find that your blood sugar is significantly more elevated, please discontinue prednisone use Naproxen as an anti-inflammatory that has been sent to your pharmacy. Take this as needed for pain/discomfort. Do not take this with other NSAIDs such as ibuprofen/Motrin, or Aleve as this can increase risk of GI bleeding. You have been provided with a referral to an orthopedic doctor. You may call them to follow up. They will not call you. You may also follow-up with the surgeon that you have previously seen. Please call them to schedule an appointment. Follow-up with your primary care provider. Return with new or worsening symptoms. In the case of an emergency call 911. Prescriptions: New prednisone 20 mg tablet 20 mg PO DAILY 5 Days Qty: 5 0RF naproxen 500 mg tablet 500 mg PO Q8-12H PRN (Reason: pain (scale score 4-6)) Qty: 30 0RF No Action (DME) shower chair Medium 0 .Route .MEDSUPPLY Qty: 1 0RF Rx Instructions: Shower chair (DME) lancets [FreeStyle Lancets] 28 gauge misc See Rx Instructions .ROUTE .MEDSUPPLY Qty: 100 11RF Rx Instructions: Three times a day (DME) FreeStyle Lite Strips Strip See Rx Instructions .ROUTE .MEDSUPPLY Qty: 100 11RF Rx Instructions: As directed three times a day insulin glargine [Lantus Solostar U-100 Insulin] 100 unit/mL (3 mL) insulin pen 20 unit subcut QAM Qty: 15 5RF (DME) FreeStyle Precision [place] Strips Strip See Rx Instructions .Route Qty: 50 5RF Rx Instructions: As directed once a day (DME) FreeStyle Lisa 2 [place] Misc See Rx Instructions .ROUTE .COMPLEX Qty: 1 0RF Dose Instruction: DIRECTED Rx Instructions: DIRECTED magnesium oxide 400 mg (241.3 mg magnesium) tablet 400 mg PO BEDTIME 30 Days Qty: 30 6RF Rx Instructions: may hold for loose stools Jardiance 25 mg tablet 25 mg PO DAILY Qty: 90 1RF (DME) pen needle, diabetic [Comfort EZ [place]] 33 gauge x 5/32 needle See Rx Instructions .ROUTE .MEDSUPPLY Qty: 100 3RF Rx Instructions: As directed (DME) FreeStyle Lisa 2 Sensor Kit See Rx Instructions .ROUTE .COMPLEX Qty: 2 6RF Dose Instruction: USE DIRECTED. CHANGE EVERY 2 WEEKS. Rx Instructions: USE DIRECTED. CHANGE EVERY 2 WEEKS. omeprazole 20 mg capsule,delayed release(DR/EC) 20 mg PO DAILY 90 Days Qty: 90 0RF acetaminophen [Tylenol Extra Strength] 500 mg tablet 500 mg PO Q6H PRN (Reason: pain) Qty: 30 0RF albuterol sulfate 90 mcg/actuation HFA aerosol inhaler 2 puff inhalation Q4-6H PRN (Reason: shortness of breath or wheezing) Qty: 6.7 0RF semaglutide 1 mg/dose (4 mg/3 mL) pen injector 1 mg subcut QWEEK Qty: 3 4RF (DME) Updraft machine See Rx Instructions .Route .MEDSUPPLY Qty: 1 0RF Rx Instructions: As directed albuterol sulfate 0.63 mg/3 mL solution for nebulization 0.63 mg inhalation QID PRN (Reason: shortness of breath or wheezing) Qty: 75 0RF mirtazapine 7.5 mg tablet 7.5 mg PO DAILY melatonin 10 mg capsule 10 mg PO BEDTIME PRN insulin lispro 100 unit/mL insulin pen 6 unit subcut TID Referrals: [facility] [place] Medicine [Provider Group] [facility] [place] [place] [facility] Care[facility] [Provider Group] [facility] [place] [facility] [Provider Group] [facility] [place] [facility] [facility] [place]Provider Group] Interventions: ED Discharge Assessment Last Done: 04/05/24 15:47 Discharge Date/Time: 04/05/24 15:48 Print Language: Armenian
[2024-04-05] MEDS: Ibuprofen 600 MG TABLET PO (13:51)
[2024-04-05 14:43] VITALS: BP 111/69; PULSE 87; RESP 18; TEMP 36.6; O2SAT 98
[2024-04-05 14:51] LABS: Glucose, Whole Blood 238 mg/dL (60-115)
[2024-04-05 15:42] VITALS: BP 112/67; PULSE 78; RESP 18; TEMP 36.6; O2SAT 98
[2024-04-05 15:47] VITALS: BP 112/67; PULSE 78; RESP 18; TEMP 36.6; O2SAT 98
== END 2024-04-05 15:48 | disposition home or self-care (01) ==
PROVIDERS: Emergency Provider Student in an Organized Health Care Education/Training Program; PCP Internal Medicine
DX: M25.532 Pain in left wrist (principal); E11.9 Type 2 diabetes mellitus without complications; I10 Essential (primary) hypertension; Z79.4 Long term (current) use of insulin; Z79.899 Other long term (current) drug therapy
CPT/HCPCS: 73100; 82947; 99283

== ENCOUNTER 2024-04-08 08:57 | Outpatient (AMB) | payer OTHER, SELFPAY ==
--- NOTE | 2024-04-08 09:04 | A.OFFVIS_ITS ---
VS Expanded 04/08/24 09:05 Height 5 ft 3 in Weight 156 lb 15.506 oz BMI 27.8 Intake Visit Reasons: T2DM/LVM Allergies No Known Allergies Allergy (Verified 04/15/24 09:08) Nutrition Presentation Details: PT presents for MNt for T2DM Pt did not bring glucose reader to this appt Pt reports increased appetite at night time - chips/crackers anything Physical activity: walking down your blood sugar (30 minutes of physical activity at 6 am ) and bike pedlar in pm BS Monitoring Most Recent Diabetes Results: Creatinine 1.04 mg/dL (0.5-1.4) 03/06/24 Blood Urea Nitrogen 12 mg/dL (9-16) 03/06/24 Sodium 138 mmol/L (135-145) 03/06/24 Potassium 4.1 mmol/L (3.3-5.1) 03/06/24 Chloride 108 mmol/L (96-108) 03/06/24 Carbon Dioxide 22 mmol/L (22-29) 03/06/24 Calcium 9.1 mg/dL (8.4-10.2) 03/06/24 AST 108 U/L (5-31) H 03/06/24 ALT 149 U/L (0-31) H 03/06/24 Total Protein 8.4 g/dL (6.5-8.0) H 03/06/24 Albumin 4.1 g/dL (3.5-5.0) 03/06/24 [facility] Medical History Fibroids PMB (postmenopausal bleeding) Osteopenia Dyslipidemia Diabetic polyneuropathy associated with type 2 diabetes mellitus Diabetes type 2, uncontrolled Diabetes 1.5, managed as type 1 Panic anxiety syndrome Hospital discharge follow-up Vitamin D deficiency Carpal tunnel syndrome Incontinence Hemorrhoids Tubal occlusion Insomnia Elevated cholesterol Depression Hypertension IDDM (insulin dependent diabetes mellitus) Surgical History History of neck surgery History of surgery History of colonoscopy History of hemorrhoidectomy History of carpal tunnel release History of bladder surgery S/P sinus surgery Hx of breast reduction, elective Hx of appendectomy H/O tubal ligation History of heart artery stent Family History Father No problems noted. Mother Heart disease Lung cancer Brother Liver cancer Brother Renal cancer HTN (hypertension) Diabetes mellitus Maternal Grandfather No problems noted. Maternal Grandmother No problems noted. Paternal Grandfather No problems noted. Paternal Grandmother No problems noted. Maternal Uncle Diabetes mellitus Paternal Uncle Diabetes mellitus Son No problems noted. Daughter No problems noted. Social History Housing: House Alcohol intake: current Alcohol intake frequency: holidays/special occasions only Patient Tobacco Use Status: Former Tobacco user Quit Date: 23 yrs ago e-Cigarette/Vaping Use: Never Used service: No Current occupational status: disabled Current occupation: right hand dominant Sexual orientation: Straight/Heterosexual Gender identity: Female Cognitive needs: No Hearing needs: No Vision needs: Yes Assessment & Plan Assessment & Plan (1) Type 2 diabetes mellitus with hypoglycemia without coma: Comment: Code(s): E11.649 - Type 2 diabetes mellitus with hypoglycemia without coma Category: Medical Plan: Rec 1500 ADA meal plan (40% carb, 30% fat, 30% prot) Used wt : 72kg Rec fluid as per 25 ml/kg bw: 1800 Rec NA 1500 mg/d REc fiber: 25 g /d Plan Rec 1500 ADA meal plan? (40% carb, 30% fat, 30% prot) Used wt : 72kg Rec fluid as per 25 ml/kg bw:? 1800 Rec NA? 1500 mg/d REc fiber: 25 g /d Educate patient on: (R= Reviewed, V = verbalizes understanding N/R= Needs review N/A= not applicable) * Food sources of carbohydrates and serving adequate serving sizes : R V * Difference between complex carbohydrates and simple carbohydrates, role of fiber: R V * Differences between fats (MUFA/PUFA/saturated fats, trans fats) and food sources of various fats: R V * Food sources of sodium and salt and healthy modifications for heart health and kidney health: R v * Vitamins and minerals: R V * How to interpret food labels: R V * Healthy Plate method concept: R V * Physical activity: benefits and precaution: R V Patient Instructions: Work on having 3 schduled meals Choose food with healthy nutrients as snack (fruits, yogurt, 1/2 sandw as examples) monitor your blood sugar int he fasting state and 2 hours after a meal , consult with your doctor if having fasting blood sugar higher than 130 or higher than 180 , 2 hours after a meal Coding Level of Care Code Nutr Indiv Subseq ([id number]) Diagnoses Type 2 diabetes mellitus with hypoglycemia without coma E11.649 Time Spent (min) 30
[2024-04-08 09:05] VITALS: BMI 27.8
== END 2024-04-08 09:31 | disposition home or self-care (01) ==
PROVIDERS: PCP Internal Medicine; Visit Provider Dietitian, Registered
DX: E11.649 Type 2 diabetes mellitus with hypoglycemia without coma (principal)

== ENCOUNTER → 2024-04-08 08:57 | Outpatient (BNVA) | payer OTHER, SELFPAY | PROVIDERS: PCP Internal Medicine; Visit Provider Dietitian, Registered | DX: E11.649 Type 2 diabetes mellitus with hypoglycemia without coma (principal); Z71.3 Dietary counseling and surveillance | CPT/HCPCS: 97803 ==

== ENCOUNTER 2024-04-15 08:57 | Outpatient (AMB) | payer OTHER, SELFPAY ==
--- NOTE | 2024-04-15 09:03 | MHC.OFFVIS ---
Intake Visit Reasons: New Pt - left wrist pain Intake Note: Emma is a 68 year old right hand dominant female who presents today as a new patient for a evaluation of her left wrist pain. EMG done on 01/25/23. History of CTR in both hands and also trigger finger in both. Patient reports ongoing pain for about a month. She expresses that her pain is on the radial aspect of the wrist. pain is worse when she makes certain movements. Patient states having pain with she touches around that area. No history of OT. She finds relief when she is using her velcro wrist splint. Allergies No Known Allergies Allergy (Verified 04/15/24 09:08) HPI HPI New Pt - left wrist pain: Details: 68-year-old right hand dominant female, who is [place] speaking, presents in the office today for an evaluation of left wrist pain. Patient presented to the ED on 04/05/2024 with a complaint of left wrist pain and weakness for a month, since 02/2024. She reported numerous surgeries on the bilateral wrist secondary to tendinitis and carpal tunnel. Her last surgery on left wrist was approximately 2 years ago, in 2021. X-rays were obtained. She was given a wrist brace. She was prescribed Prednisone 20 mg PO daily and Naproxen 500 mg PO Q8-12H PRN. Patient reports ongoing pain for about a month, since 02/2024. She claims her pain is on the radial aspect of the left wrist. Reports an increase in pain with certain movements. Also reports tenderness to palpation around that area. Confirms the use of a Velcro wrist splint with relief. Patient denies prior treatment of occupational therapy. Patient confirms a history of CTR in the bilateral hands and trigger finger release (in unspecified fingers). Patient has a significant medical history of diabetes mellitus and diabetic neuropathy. Last A1c was 8.6 on 03/14/2024. [facility] Medical History Fibroids PMB (postmenopausal bleeding) Osteopenia Dyslipidemia Diabetic polyneuropathy associated with type 2 diabetes mellitus Diabetes type 2, uncontrolled Diabetes 1.5, managed as type 1 Panic anxiety syndrome Hospital discharge follow-up Vitamin D deficiency Carpal tunnel syndrome Incontinence Hemorrhoids Tubal occlusion Insomnia Elevated cholesterol Depression Hypertension IDDM (insulin dependent diabetes mellitus) Surgical History History of neck surgery History of surgery History of colonoscopy History of hemorrhoidectomy History of carpal tunnel release History of bladder surgery S/P sinus surgery Hx of breast reduction, elective Hx of appendectomy H/O tubal ligation History of heart artery stent Family History Father No problems noted. Mother Heart disease Lung cancer Brother Liver cancer Brother Renal cancer HTN (hypertension) Diabetes mellitus Maternal Grandfather No problems noted. Maternal Grandmother No problems noted. Paternal Grandfather No problems noted. Paternal Grandmother No problems noted. Maternal Uncle Diabetes mellitus Paternal Uncle Diabetes mellitus Son No problems noted. Daughter No problems noted. Social History Housing: House Alcohol intake: current Alcohol intake frequency: holidays/special occasions only Patient Tobacco Use Status: Former Tobacco user Quit Date: 23 yrs ago e-Cigarette/Vaping Use: Never Used service: No Current occupational status: disabled Current occupation: right hand dominant Sexual orientation: Straight/Heterosexual Gender identity: Female Cognitive needs: No Hearing needs: No Vision needs: Yes Review of Systems Const All systems reviewed & are unremarkable except as noted in HPI and below Physical Exam Const General: cooperative, healthy appearing and no acute distress Resp Effort & Inspection: normal respiratory effort and able to speak in complete sentences Cardio Rate: regular rate Peripheral pulses: Peripheral pulses 2+ throughout GI Palpation (GI): Soft to palpation Skin Lesions: no lesions Rashes: no rashes Extrem Other: Left wrist: Normal to inspection. No ecchymosis, erythema, or edema. Tenderness to palpation over the first dorsal compartment. Able to perform full finger flexion, extension, abduction, adduction, finger cross, okay sign, and thumbs up without deficit. Able to make a closed fist. Positive Sheeba's Test. Sensation intact. Capillary refill is brisk. Radial pulse intact. Assessment & Plan Assessment & Plan (1) De Quervain's tenosynovitis, left: Code(s): M65.4 - Radial styloid tenosynovitis [de Quervain] Category: Medical Plan Ms. Moi Friedman is a 68-year-old right hand dominant female, who is [place] speaking, presents in the office today for an evaluation of left wrist pain. Patient presented to the ED on 04/05/2024 with a complaint of left wrist pain and weakness for a month, since 02/2024. She reported numerous surgeries on the bilateral wrist secondary to tendinitis and carpal tunnel. Her last surgery on left wrist was approximately 2 years ago, in 2021. X-rays were obtained. She was given a wrist brace. She was prescribed Prednisone 20 mg PO daily and Naproxen 500 mg PO Q8-12H PRN. Patient reports ongoing pain for about a month, since 02/2024. She claims her pain is on the radial aspect of the left wrist. Reports an increase in pain with certain movements. Also reports tenderness to palpation around that area. Confirms the use of a Velcro wrist splint with relief. Patient denies prior treatment of occupational therapy. Patient confirms a history of CTR in the bilateral hands and trigger finger release (in unspecified fingers). Patient has a significant medical history of diabetes mellitus and diabetic neuropathy. Last A1c was 8.6 on 03/14/2024. Patient was given a comfort cool brace, off the shelf, while in the office today. A referral to occupational therapy was made. The decision to avoid cortisone injections is due to uncontrolled diabetes. I did discuss that should the patient require surgical intervention in the future, as she has had De Quervain surgery on the right hand, she would have to monitor her blood glucose and get her A1c below 8.0. Follow up will be in 8 weeks, or sooner if needed. X-rays of the left wrist, obtained on 04/05/2024, revealed: No acute osseous abnormality. EMG study of the bilateral upper extremities, obtained on 01/25/2023, revealed: 1. [id number]-ii-[id number] bilateral median neuropathy across carpal tunnel. 2. Mild bilateral ulnar neuropathy across cubital tunnel. Patient Instructions: Scribed by Maxine Herrera medical sales specialist, for Michaelle Snow PA-C on 04/15/2024 at 8:58 am, EST. Coding Level of Care Code New Pt Level 3 (05395) Diagnoses De Quervain's tenosynovitis, left M65.4
== END 2024-04-15 09:40 | disposition home or self-care (01) ==
PROVIDERS: PCP Internal Medicine; Visit Provider Physician Assistant
DX: M65.4 Radial styloid tenosynovitis [de Quervain] (principal)
CPT/HCPCS: 99213

== ENCOUNTER → 2024-04-15 08:57 | Outpatient (BNVA) | payer OTHER, SELFPAY | PROVIDERS: PCP Internal Medicine; Visit Provider Physician Assistant | DX: M65.4 Radial styloid tenosynovitis [de Quervain] (principal) | CPT/HCPCS: 99212 ==

== ENCOUNTER 2024-04-17 08:58 | Outpatient (AMB) | payer OTHER, SELFPAY ==
[2024-04-17 09:01] VITALS: BP 120/60; BMI 28.0
--- NOTE | 2024-04-17 09:01 | MHC.OFFVIS ---
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 She is doing well with no concerns. Admits to not eating well, admits her blood sugars are high. Active with exercise-walking. Currently not sexually active. Denies any vaginal dryness or irritation. STI testing offered; she declines. Last pap smear; 2020. Last mammogram; 2023. Colonoscopy is bein planned this year. Denies any family history of breast, ovarian or colon cancer. History of fibroid. [facility] Medical History Fibroids PMB (postmenopausal bleeding) Osteopenia Dyslipidemia Diabetic polyneuropathy associated with type 2 diabetes mellitus Diabetes type 2, uncontrolled Diabetes 1.5, managed as type 1 Panic anxiety syndrome Hospital discharge follow-up Vitamin D deficiency Carpal tunnel syndrome Incontinence Hemorrhoids Tubal occlusion Insomnia Elevated cholesterol Depression Hypertension IDDM (insulin dependent diabetes mellitus) Surgical History History of neck surgery History of surgery History of colonoscopy History of hemorrhoidectomy History of carpal tunnel release History of bladder surgery S/P sinus surgery Hx of breast reduction, elective Hx of appendectomy H/O tubal ligation History of heart artery stent Family History Father No problems noted. Mother Heart disease Lung cancer Brother Liver cancer Brother Renal cancer HTN (hypertension) Diabetes mellitus Maternal Grandfather No problems noted. Maternal Grandmother No problems noted. Paternal Grandfather No problems noted. Paternal Grandmother No problems noted. Maternal Uncle Diabetes mellitus Paternal Uncle Diabetes mellitus Son No problems noted. Daughter No problems noted. Social History Housing: House Alcohol intake: current Alcohol intake frequency: holidays/special occasions only Patient Tobacco Use Status: Former Tobacco user Quit Date: 23 yrs ago e-Cigarette/Vaping Use: Never Used service: No Current occupational status: disabled Current occupation: right hand dominant Sexual orientation: Straight/Heterosexual Gender identity: Female Cognitive needs: No Hearing needs: No Vision needs: Yes Female Reproductive History Menstrual Age of Menarche: 14 control method: permanent sterilization Total pregnancies: 2 Full term: 2 Number of Living Children: 2 Date of last pap smear: 04/01/21 (negative) Date of Mammogram: 01/08/24 Review of Systems Const All systems reviewed & are unremarkable except as noted in HPI and below Reports as per HPI Eyes Reports no additional complaints ENT Reports no additional complaints Card Reports no additional complaints Resp Reports no additional complaints GI Reports as per HPI and Reports no additional complaints Reports as per HPI Musc Reports no additional complaints Skin/Breast Reports as per HPI Neuro Reports no additional complaints Psych Reports no additional complaints Endo Reports no additional complaints Baldemar/Lymph Reports no additional complaints Aller/Immun Reports no additional complaints Physical Exam Vital Signs: Last Vital Signs BP 120/60 04/17/24 09:01 BMI result Body Mass Index 28.0 Const General: cooperative, healthy appearing, no acute distress, well developed and alert Orientation/consciousness: patient oriented x3 HEENT Head: Yes normal to inspection Eyes General: appearance normal, both eyes and all related structures Neck Neck: Yes normal visual inspection Thyroid: Thyroid normal Chest Other: Bilateral breast reduction scarring Chest palpation & inspection: normal inspection of the chest and other (no puckering, dimpling, peau de orange, retraction, discharge, masses) Breast/axilla inspection: normal inspection of the breasts Breast/axilla palpation: normal palpation of the breasts Resp Effort & Inspection: normal respiratory effort GI Inspection: Yes normal to inspection, Yes obesity and Yes scar Palpation (GI): Soft to palpation Rectal Exam - Female: deferred General: Yes bladder normal to palpation External Female Exam: normal external appearance, normal appearance of the urethra and erythema Speculum Exam - Vagina: normal appearance of the vagina, normal palpation, normal vaginal discharge and vagina atrophic (Moderate) Speculum Exam - Cervix: normal appearance of the cervix and normal palpation Bimanual exam- vagina & uterus: normal bimanual exam, normal palpation, uterine size normal, bladder normal to palpation, normal palpation and non-tender Bimanual Exam- Adnexa, other: no masses Skin General skin exam: no rashes or lesions noted Rashes: no rashes Neuro General: patient oriented x3 Cognition (Neuro): normal cognition Extrem General: Yes normal to inspection Psych Attitude: cooperative Thought process: Normal thought process present Assessment & Plan Assessment & Plan (1) Encounter for well woman exam with routine gynecological exam: Code(s): Z01.419 - Encounter for gynecological examination (general) (routine) without abnormal findings Category: Medical (2) Fibroids: Code(s): D21.9 - Benign neoplasm of connective and other soft tissue, unspecified Category: Medical Plan Discussed: Current recommendations for pap smears per ASCCP guidelines. Breast awareness, periodic self breast exams and yearly mammogram. Maintain a healthy lifestyle, well balanced diet including Calcium 1,200 mg and Vitamin D 600 IU daily, and routine exercise. Counseled re: Leiomyoma: common pelvic neoplasm. Differential diagnosis-may include leiomyosarcoma which is a rare uterine sarcoma 3-7/100,000, difficult to distinguish from fibroids on ultrasound from uterine sarcoma's. Unlikely any single test will have a highly positive predictive value. Hysterectomy is not recommended for sole purpose of excluding malignant neoplasm. Report any PMB, pelvic pressure, bloating, or pain. Consult for surgical exploration verses expectant management offered. Expectant management follow up in 6 months, then yearly for stability. Referral to MD if indicated for level of care. follow up: 02/2025, with follow up appt. with annual visit. Contact the office with any postmenopausal bleeding. Patient verbalizes understanding and agrees to the plan of care. She was given opportunity to ask questions and all questions were answered to the best of my ability. RTO in 1 year for annual gynaecological oncologist exam. This note is constructed using voice recognition software. While every effort has been made to ensure accuracy, chaperon errors may have been included. Orders: Orders US pelvic and transvaginal 03/16/25 D21.9 - Benign neoplasm of connective and other soft tissue, unspecified Coding Level of Care Code Est Pt Prev Care >65y(81781) Diagnoses Encounter for well woman exam with routine gynecological exam Z01.419 Fibroids D21.9
== END 2024-04-17 09:35 | disposition home or self-care (01) ==
LOC: HO.HWS 08:58
PROVIDERS: PCP Internal Medicine; Visit Provider Advanced Practice Midwife
DX: Z01.419 Encounter for gynecological examination (general) (routine) without abnormal findings (principal); D21.9 Benign neoplasm of connective and other soft tissue, unspecified
CPT/HCPCS: 99397

== ENCOUNTER → 2024-04-17 08:58 | Outpatient (BNVA) | payer OTHER, SELFPAY | PROVIDERS: PCP Internal Medicine; Visit Provider Advanced Practice Midwife ==

== ENCOUNTER 2024-05-05 08:58 | Outpatient (AMB) | payer OTHER, SELFPAY ==
[2024-05-05 09:04] VITALS: BMI 28.1
--- NOTE | 2024-05-05 09:04 | MHC.AMNUTRGE ---
VS Expanded 05/05/24 09:04 Height 5 ft 3 in Weight 158 lb 8.198 oz BMI 28.1 Intake Visit Reasons: T2DM/LVM Allergies No Known Allergies Allergy (Verified 04/17/24 09:04) Nutrition Presentation Details: Pt presents for MNT follow up for T2DM Pt reports working on meal planning, participates from meals provided at the [employer] in [place], reports not carrying dm meds/insulin with her therefore skipping prandial insulin. Pt reports increased appetite in the evening consuming > 200 liv/30 g carb as bedtime snack. BS Monitoring Most Recent Diabetes Results: Creatinine 1.04 mg/dL (0.5-1.4) 03/06/24 Blood Urea Nitrogen 12 mg/dL (9-16) 03/06/24 Sodium 138 mmol/L (135-145) 03/06/24 Potassium 4.1 mmol/L (3.3-5.1) 03/06/24 Chloride 108 mmol/L (96-108) 03/06/24 Carbon Dioxide 22 mmol/L (22-29) 03/06/24 Calcium 9.1 mg/dL (8.4-10.2) 03/06/24 AST 108 U/L (5-31) H 03/06/24 ALT 149 U/L (0-31) H 03/06/24 Total Protein 8.4 g/dL (6.5-8.0) H 03/06/24 Albumin 4.1 g/dL (3.5-5.0) 03/06/24 PFSH Medical History Fibroids PMB (postmenopausal bleeding) Osteopenia Dyslipidemia Diabetic polyneuropathy associated with type 2 diabetes mellitus Diabetes type 2, uncontrolled Diabetes 1.5, managed as type 1 Panic anxiety syndrome Hospital discharge follow-up Vitamin D deficiency Carpal tunnel syndrome Incontinence Hemorrhoids Tubal occlusion Insomnia Elevated cholesterol Depression Hypertension IDDM (insulin dependent diabetes mellitus) Surgical History History of neck surgery History of surgery History of colonoscopy History of hemorrhoidectomy History of carpal tunnel release History of bladder surgery S/P sinus surgery Hx of breast reduction, elective Hx of appendectomy H/O tubal ligation History of heart artery stent Family History Father No problems noted. Mother Heart disease Lung cancer Brother Liver cancer Brother Renal cancer HTN (hypertension) Diabetes mellitus Maternal Grandfather No problems noted. Maternal Grandmother No problems noted. Paternal Grandfather No problems noted. Paternal Grandmother No problems noted. Maternal Uncle Diabetes mellitus Paternal Uncle Diabetes mellitus Son No problems noted. Daughter No problems noted. Social History Housing: House Alcohol intake: current Alcohol intake frequency: holidays/special occasions only Patient Tobacco Use Status: Former Tobacco user e-Cigarette/Vaping Use: Never Used service: No Current occupational status: disabled Current occupation: right hand dominant Sexual orientation: Straight/Heterosexual Gender identity: Female Cognitive needs: No Hearing needs: No Vision needs: Yes Female Reproductive History Menstrual Age of Menarche: 14 Assessment & Plan Assessment & Plan (1) Type 2 diabetes mellitus with hypoglycemia without coma: Comment: Code(s): E11.649 - Type 2 diabetes mellitus with hypoglycemia without coma Category: Medical Plan: Rec 1500 ADA meal plan (40% carb, 30% fat, 30% prot) Used wt : 72kg Rec fluid as per 25 ml/kg bw: 1800 Rec NA 1500 mg/d REc fiber: 25 g /d Plan Rec 1500 ADA meal plan? (40% carb, 30% fat, 30% prot) Used wt : 72kg Rec fluid as per 25 ml/kg bw:? 1800 Rec NA? 1500 mg/d REc fiber: 25 g /d Educate patient on: (R= Reviewed, V = verbalizes understanding N/R= Needs review N/A= not applicable) Food sources of carbohydrates and serving adequate serving sizes : R V Difference between complex carbohydrates and simple carbohydrates, role of fiber: R V Differences between fats (MUFA/PUFA/saturated fats, trans fats) and food sources of various fats: R V Food sources of sodium and salt and healthy modifications for heart health and kidney health: R v Vitamins and minerals: R V How to interpret food labels: R V Healthy Plate method concept: R V Physical activity: benefits and precaution: R V Patient Instructions: Carry with DM medication with you: take lispro (humalog) 10 minutes before your meal as prescribed by your doctor Follow healthy plate method at dinner Choose low sugar Popsicle , 4 oz yogurts , working on reducing carbs to less than 30 g Coding Level of Care Code Nutr Indiv Subseq (55420) Diagnoses Type 2 diabetes mellitus with hypoglycemia without coma E11.649 Time Spent (min) 30
== END 2024-05-05 09:30 | disposition home or self-care (01) ==
PROVIDERS: PCP Internal Medicine; Visit Provider Dietitian, Registered
DX: E11.649 Type 2 diabetes mellitus with hypoglycemia without coma (principal)

== ENCOUNTER → 2024-05-05 08:58 | Outpatient (BNVA) | payer OTHER, SELFPAY | PROVIDERS: PCP Internal Medicine; Visit Provider Dietitian, Registered | DX: E11.649 Type 2 diabetes mellitus with hypoglycemia without coma (principal) | CPT/HCPCS: 97803 ==

== ENCOUNTER 2024-05-28 11:30 | Outpatient (RCR) | payer OTHER, SELFPAY | END 2024-05-28 13:49 | disposition home or self-care (01) | LOC: HO.OT 11:30 | PROVIDERS: PCP Internal Medicine; Visit Provider Physician Assistant | DX: M65.4 Radial styloid tenosynovitis [de Quervain] (principal) | CPT/HCPCS: 29125; 97033; 97110; 97140; 97165; 97535; 97760 ==

== ENCOUNTER 2024-06-05 09:58 | Outpatient (AMB) | payer OTHER, SELFPAY ==
[2024-06-05 10:06] VITALS: BP 114/62; PULSE 86; BMI 28.1
--- NOTE | 2024-06-05 10:06 | A.OFFVIS_ITS ---
Vital Signs 06/05/24 10:06 Height 5 ft 3 in Weight 158 lb 11.725 oz BMI 28.1 BP 114/62 Blood Pressure Location Rt brachial Position Sitting Pulse 86 Pulse Source Pulse Oximeter Intake Visit Reasons: Type 2 DM/CONFIRMED Intake Note: New Patient presents today to established treatment for Diabetes Type 2: Most recent Eye Exam: DUE Most recent Podiatry Exam: Does not see a Filament Wound Parts Fabricator Most recent HbA1c: 8.6%, Random Glucose- 255mg/dL, Today Computer Aided Design Technician Required: No Accompanied by: Self / Same As Patient Allergies No Known Allergies Allergy (Verified 06/05/24 11:24) HPI Comments Details: Patient is a 68-year-old female with DM type [address] Marie 08/28/2023. Past medical history: Diabetes type 2, hypertension, hyperlipidemia, osteopenia, sleep apnea, carpal tunnel syndrome. CAD status post stent, depression Micro and macrovascular complications: Neuropathy, CAD Diabetes medications: Metformin 500 mg 2 pills twice a day was stopped by her PCP this spring due to concerns about her EGFR which was 53, Jardiance 25 mg daily , Ozempic 1 mg weekly due to inability to get Trulicity 3.0 Lantus 20 units Humalog 6 units before meals (reports missing supper meal frequently) Freestyle zahra sensor [3] average glucose: [219] Glucose Management indicator 8.5% TIme in range: [30 ] % very high (above 250) [39} % high (181-250) [31 ] % in range (70-180] 0 % low (69-55) 0 % very low (below 54) Hypoglycemia: Denies Hyperglycemia: + urinary frequency, + nocturia, polydypsia Complaints of numbness and tingling in feet at times No tobacco, alcohol 1 beer on Sunday and Sunday Exercise: walking Sunday through Sunday 30 minutes 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 Other specialists: cardiology She had elevated liver function tests earlier in the year. [facility], [facility] Medical History Fibroids PMB (postmenopausal bleeding) Osteopenia Dyslipidemia Diabetic polyneuropathy associated with type 2 diabetes mellitus Diabetes type 2, uncontrolled Diabetes 1.5, managed as type 1 Panic anxiety syndrome Hospital discharge follow-up Vitamin D deficiency Carpal tunnel syndrome Incontinence Hemorrhoids Tubal occlusion Insomnia Elevated cholesterol Depression Hypertension IDDM (insulin dependent diabetes mellitus) Surgical History History of neck surgery History of surgery History of colonoscopy History of hemorrhoidectomy History of carpal tunnel release History of bladder surgery S/P sinus surgery Hx of breast reduction, elective Hx of appendectomy H/O tubal ligation History of heart artery stent Family History Father No problems noted. Mother Heart disease Lung cancer Brother Liver cancer Brother Renal cancer HTN (hypertension) Diabetes mellitus Maternal Grandfather No problems noted. Maternal Grandmother No problems noted. Paternal Grandfather No problems noted. Paternal Grandmother No problems noted. Maternal Uncle Diabetes mellitus Paternal Uncle Diabetes mellitus Son No problems noted. Daughter No problems noted. Social History Housing: House Alcohol intake: current Alcohol intake frequency: holidays/special occasions only Patient Tobacco Use Status: Former Tobacco user e-Cigarette/Vaping Use: Never Used service: No Current occupational status: disabled Current occupation: right hand dominant Sexual orientation: Straight/Heterosexual Gender identity: Female Cognitive needs: No Hearing needs: No Vision needs: Yes Female Reproductive History Menstrual Age of Menarche: 14 Physical Exam Vital Signs: Last Vital Signs Pulse 86 06/05/24 10:06 BP 114/62 06/05/24 10:06 BMI result Body Mass Index 28.1 Const General: cooperative and healthy appearing Nutritional Appearance: average body habitus Neck Other: well healed anterior scar right Thyroid: Thyroid normal Resp Effort & Inspection: normal respiratory effort Extrem Other: no edema Results Reviewed Results Reviewed: Laboratory Last Values Glucose (Clinic) 255 mg/dL (60-115) H 06/05/24 10:09 Laboratory Tests 12/18/23 03/06/24 03/06/24 14:25 14:21 14:48 Potassium 4.1 Creatinine 1.04 Estim Creat Clear Calc 50.2 Estimated GFR 53 Hgb A1c (Clinic) Hemoglobin A1c % 7.5 H Lactic Acid 2.0 Calcium 9.1 D Magnesium 1.9 AST 39 H 108 H ALT 75 H 149 H LDL Cholesterol Direct 138 H 03/14/24 10:56 Potassium Creatinine Estim Creat Clear Calc Estimated GFR Hgb A1c (Clinic) 8.6 H Hemoglobin A1c % Lactic Acid Calcium Magnesium AST ALT LDL Cholesterol Direct Assessment & Plan Assessment & Plan (1) Type 2 diabetes mellitus with hypoglycemia without coma: Comment: Code(s): E11.649 - Type 2 diabetes mellitus with hypoglycemia without coma Category: Medical Plan: Recent increase in A1c. She was on a pump in the past for 10 years and did not like it Continue same medications in addition to increasing Ozempic 2 mg weekly. Metformin was discontinued by her PCP for an EGFR of 54. We will consider restarting this if Ozempic 2 mg in more consistency in the evening Humalog does not bring her A1c back down again. refer to podiatry recheck lft's and will screen with fib4 based on new lft's for possible MASH Teaching: Missed doses of insulin raise A1C which increases the risk of diabetes complications including damage to the eyes, kidneys, blood vessels and nerves of the body. Desired A1C is 7% (avg bg 154) The patient was counseled to always carry a source of sugar and on the rule of 15's: Take 3 glucose tablets and repeat again in 15 minutes if blood sugar is not in normal range. Continue to repeat every 15 minutes until blood sugar is normal. Side effects of GLP-1 agonist were reviewed: Nausea, vomiting, diarrhea, headache, dehydration or low blood sugar. Rare acute kidney injury which can result from dehydration. Orders: Orders Lipid Panel Today E11.649 - Type 2 diabetes mellitus with hypoglycemia without coma Liver Panel Today E11.649 - Type 2 diabetes mellitus with hypoglycemia without coma Medications: New semaglutide (Ozempic) 2 mg (0.75 mL) subcut QWEEK 28 days 3 mL 3RF E11.649 - Type 2 diabetes mellitus with hypoglycemia without coma Discontinued semaglutide Discontinued Reason: Doctor's Order 1 mg (0.75 mL) subcut QWEEK 3 mL 4RF Coding Level of Care Code Est Pt Level 5 (50336) Complex EM visit Add On G2211 Diagnoses Type 2 diabetes mellitus with hypoglycemia without coma E11.649 Time Spent (min) 60 Comment Time spent reviewing labs/previous provider notes, face to face, chart documentation
[2024-06-05 10:18] LABS: Glucose, Whole Blood 255 mg/dL (60-115)
== END 2024-06-05 10:50 | disposition home or self-care (01) ==
PROVIDERS: PCP Internal Medicine; Visit Provider Nurse Practitioner Adult Health
DX: E11.649 Type 2 diabetes mellitus with hypoglycemia without coma (principal)
CPT/HCPCS: 99215; G2211; G2212

== ENCOUNTER → 2024-06-05 09:58 | Outpatient (BNVA) | payer OTHER, SELFPAY | PROVIDERS: PCP Internal Medicine; Visit Provider Nurse Practitioner Adult Health | DX: E11.649 Type 2 diabetes mellitus with hypoglycemia without coma (principal) | CPT/HCPCS: 82947; 99212 ==

== ENCOUNTER 2024-06-05 11:06 | Emergency (ER) | payer OTHER, SELFPAY ==
--- NOTE | ~2024-06-05 | XR_ITS ---
EXAMINATION: XR CHEST CLINICAL INFORMATION: Cough COMPARISON: 03/06/2024 TECHNIQUE: 2 views of the chest were obtained. FINDINGS: Lungs are well-inflated. Trachea is midline in position. No interstitial disease, consolidation or mass. There is a linear opacity of minimal atelectasis in the inferior lingula adjacent to the paracardiac fat pad. No pleural effusion or pneumothorax. Cardiac silhouette and pulmonary vessels are normal in size. The mediastinum and sarkis have normal contour. No acute osseous abnormality. XR/XR chest 2V IMPRESSION: No evidence of pneumonia. No acute cardiopulmonary disease.
--- NOTE | 2024-06-05 11:22 | ED_ITS ---
HPI - URI/Sore Throat General Chief Complaint: Upper Respiratory Symptoms Stated Complaint: sore throat Time Seen by Provider: 06/05/24 13:54 Source: patient Mode of arrival: ambulatory Limitations: no limitations History of Present Illness ED Provider: Candida CHEN HPI Narrative: This is a 68-year-old female history of dyslipidemia, obesity, fibroids, osteopenia, diabetes, diabetic neuropathy, carpal tunnel, hemorrhoids, tubal occlusion, insomnia, depression, hypertension, insulin dependent presenting to the emergency department with fatigue, malaise, cough, congestion, sore throat ongoing for the past 2 days. Patient also reporting for the past 2 months her throat has been hurting and she has been having lower jaw pain. No associated trauma. Denies fevers, chills, sick contacts, chest pain, shortness of breath, nausea, vomiting, abdominal pain, diarrhea, changes in urination. Related Data Home Medications ?Medication ?Instructions ?Recorded ?Confirmed melatonin 10 mg capsule 10 mg PO BEDTIME PRN 11/03/20 03/18/24 mirtazapine 7.5 mg tablet 7.5 mg PO DAILY 09/11/23 03/18/24 hydroxyzine pamoate 25 mg capsule 25 mg PO DAILY PRN 04/17/24 mirtazapine 15 mg tablet 15 mg PO BEDTIME 04/17/24 repaglinide 0.5 mg tablet mg PO 04/17/24 Previous Rx's ?Medication ?Instructions ?Recorded shower chair #1 ea 11/09/20 lancets 28 gauge (FreeStyle #100 ea 12/05/21 Lancets) blood sugar diagnostic (FreeStyle #100 ea 12/04/22 Lite Strips) blood sugar diagnostic (FreeStyle #50 ea 02/09/23 Precision Wellington Strips) flash glucose scanning reader ##1 02/26/23 (FreeStyle Lisa 2 Reading) magnesium oxide 400 mg (241.3 mg 400 mg PO BEDTIME 30 days #30 tabs 06/08/23 magnesium) tablet acetaminophen 500 mg tablet 500 mg PO Q6H PRN pain #30 tabs 12/22/23 (Tylenol Extra Strength) albuterol sulfate 90 mcg/actuation 2 puff inhalation Q4-6H PRN 03/06/24 aerosol inhaler shortness of breath or wheezing #6.7 grams Updraft machine #1 ea 03/14/24 albuterol sulfate 0.63 mg/3 mL 0.63 mg (3 mL) inhalation QID PRN 03/14/24 solution for nebulization shortness of breath or wheezing #75 mL naproxen 500 mg tablet 500 mg PO Q8-12H PRN pain (scale 04/05/24 score 4-6) #30 tabs prednisone 20 mg tablet 20 mg PO DAILY 5 days #5 tabs 04/05/24 insulin glargine 100 unit/mL (3 20 unit (0.2 mL) subcut QAM #15 mL 05/21/24 mL) subcutaneous pen (Lantus Solostar U-100 Insulin) insulin lispro 100 unit/mL 6 unit (0.06 mL) subcut TID #15 mL 05/21/24 subcutaneous pen pen needle, diabetic 33 gauge x #50 ea 05/21/24 (Comfort EZ Pen [place]) flash glucose sensor (FreeStyle #2 kits 06/03/24 Lisa 2 Sensor kit) omeprazole 20 mg capsule,delayed 20 mg PO DAILY 90 days #90 caps 06/03/24 release empagliflozin 25 mg tablet 25 mg PO DAILY #90 tabs 06/04/24 (Jardiance) albuterol sulfate 90 mcg/actuation 2 inh inhalation Q4-6H PRN 06/05/24 breath activated powder inhaler shortness of breath or wheezing #1 ea azithromycin 250 mg tablet See Rx Instructions PO .COMPLEX #6 06/05/24 tabs benzonatate 100 mg capsule 100 mg PO BID PRN cough #20 caps 06/05/24 prednisone 20 mg tablet 20 mg PO DAILY 5 days #5 tabs 06/05/24 semaglutide 2 mg/dose (8 mg/3 mL) 2 mg (0.75 mL) subcut QWEEK 28 06/05/24 subcutaneous pen injector (Ozempic) days #3 mL Allergies Allergy/AdvReac Type Severity Reaction Status Date / Time No Known Allergies Allergy Verified 06/05/24 11:24 Review of Systems Review of Systems: Yes all other systems are reviewed and are negative PMFSH Past Medical History Attestation statement: The following information was validated with the patient. Source: old records reviewed and nursing notes reviewed Medical History Fibroids PMB (postmenopausal bleeding) Osteopenia Dyslipidemia Diabetic polyneuropathy associated with type 2 diabetes mellitus Diabetes type 2, uncontrolled Diabetes 1.5, managed as type 1 Panic anxiety syndrome Hospital discharge follow-up Vitamin D deficiency Carpal tunnel syndrome Incontinence Hemorrhoids Tubal occlusion Insomnia Elevated cholesterol Depression Hypertension IDDM (insulin dependent diabetes mellitus) Surgical History History of neck surgery History of surgery History of colonoscopy History of hemorrhoidectomy History of carpal tunnel release History of bladder surgery S/P sinus surgery Hx of breast reduction, elective Hx of appendectomy H/O tubal ligation History of heart artery stent Family History Family History Father No problems noted. Mother Heart disease Lung cancer Brother Liver cancer Brother Renal cancer HTN (hypertension) Diabetes mellitus Maternal Grandfather No problems noted. Maternal Grandmother No problems noted. Paternal Grandfather No problems noted. Paternal Grandmother No problems noted. Maternal Uncle Diabetes mellitus Paternal Uncle Diabetes mellitus Son No problems noted. Daughter No problems noted. Social History Social History Housing: House Alcohol intake: current Alcohol intake frequency: holidays/special occasions only Patient Tobacco Use Status: Former Tobacco user e-Cigarette/Vaping Use: Never Used Advance Directives: No Advance Directives Information Provided: No service: No Current occupational status: disabled Current occupation: right hand dominant Sexual orientation: Straight/Heterosexual Gender identity: Female Cognitive needs: No Hearing needs: No Vision needs: Yes Physical Exam Vital Signs: Vital Signs: Last Vital Signs Temp 98 F 06/05/24 11:23 Pulse 101 H 06/05/24 11:23 Resp 18 06/05/24 11:23 BP 151/98 H 06/05/24 11:23 Pulse Ox 96 06/05/24 11:23 O2 Del Method Room Air 06/05/24 11:23 BMI result Body Mass Index 28.0 vss Appearance: Alert.? Oriented X3.? No acute distress.? Head: Normocephalic, atraumatic, no step-offs or deformities Eyes: Pupils equal, round and reactive to light.? ENT: Pharynx w/ errythem and tonsil stone on the right. No tonsillomegaly. Uvula midline. Speaking in full sentences controlling secretions well.? Neck: Normal inspection.? Neck supple.? CVS: Normal heart rate and rhythm.? Pulses normal.? Respiratory: No respiratory distress.? Breath sounds normal.? Abdomen: Soft and nontender.? Skin: Skin warm and dry.? Normal skin color.? Normal skin turgor.? Extremities: No lower extremity edema.? No calf ttp. 5/5 strength to bilateral upper and lower extremities Neuro: Oriented X 3.? No motor deficit.? No sensory deficit. CN 2-12 intact Course Course Course Narrative: This is a Rapid Medical Examination (RME) performed by Minda Watson PA-C in triage. Full HPI, ROS, assessment and treatment plan per primary provider in the Main ED. 68 year old [place] speaking female with PMH tendinitis, bilateral carpal tunnel syndrome, postmenopausal bleeding, fibroids, type 2 diabetes, diabetic neuropathy, depression, and hypertension presenting with right sided sore throat and cough for the last 2 days. no SOB or chest pain. sore throat/right sided pain x1-2 months. exam with mild posterior erythema, tonsil stone on the right side, no tonsillomegaly. lungs are slighly coarse on the right without wheezing or rhonchi, no resp distress and breathing comfortably. Plan: strep and covid swab, CXR Reevaluation(s) Reevaluation #1: Chest x-ray no evidence of pneumonia. No cardiopulmonary disease. Patient's COVID, strep negative. Plan discharge home. Educated patient on diagnosis and treatment plan, answered all question, patient verbalizes understanding. At this time patient will be discharged home, advised to return with new or worsening symptoms. Educated on worrisome signs and symptoms and when to return. At this time I feel comfortable discharge home. Time: 14:52 Medical Decision Making Medical Decision Making MDM Narrative: 68-year-old female presents with sore throat, cough Physical exam with tonsil stone on the right. Otherwise unremarkable. History and physical exam concerning for viral illness versus bronchitis. Unlikely pneumonia, PE, ACS. Sore throat likely from tonsil stone/inflammation. Unlikely strep, retropharyngeal abscess, peritonsillar abscess, epiglottitis, acute threat to airway. No signs of respiratory distress Plan will discharge home with a Z-Jalil, prednisone, albuterol and benzonatate for cough. Differential Diagnosis Differential Diagnoses: The differential diagnosis associated with the presentation includes History and physical exam concerning for viral illness versus bronchitis. Unlikely pneumonia, PE, ACS. Sore throat likely from tonsil stone/inflammation. Unlikely strep, retropharyngeal abscess, peritonsillar abscess, epiglottitis, acute threat to airway. No signs of respiratory distress Admission/Observation Consideration of admission/observation: Escalation of care including admission/observation considered Possible Lab Data MDM Lab Attestation statement: I reviewed the patient's lab results. Labs: Lab Results 06/05/24 Range/Units 11:51 COVID-19 (MARELY) Negative (Negative) COVID-19 Clin Com See Note S. pyogenes GrpA GEOFF Negative (Negative) Independent Interpretation I performed an independent interpretation of an: Plain X-Ray (XR/XR chest 2V IMPRESSION: No evidence of pneumonia. No acute cardiopulmonary disease.) Radiology Impression Discussion of test interpretation with radiology: I have reviewed the radiologist's reading. External Record Review External record reviewed: Inpatient record, Office record, Outpatient record, Prior outpatient labs, Prior outpatient radiology, Primary care record and Outside ED record Prescription Management I considered prescription management with: Antibiotic and Other (benzoonate, prednisone, albuterol ) Chronic Conditions Patient?s care impacted by: Diabetes and Hypertension Critical Care Time Critical Care Time Critical Care Time: No Discharge Plan Discharge Clinical Impression: Upper respiratory infection, Tonsil stone Patient Disposition: Home, Self-Care Instructions: Upper Respiratory Infection (ED), Tonsillitis (ED), Viral Syndrome (ED) Additional Instructions: Take your medications as prescribed. If you were prescribed antibiotics today, it is important that you take your medication to their entirety, do not skip any doses, do not finish them early. Follow-up with your primary care provider this week. Return to the emergency department with new or worsening symptoms. Such as fevers, chills, chest pain, shortness of breath, nausea, vomiting, dizziness, headache, vision changes, lethargy In case of emergency call 911 Prescriptions: New prednisone 20 mg tablet 20 mg PO DAILY 5 Days Qty: 5 0RF benzonatate 100 mg capsule 100 mg PO BID PRN (Reason: cough) Qty: 20 0RF azithromycin 250 mg tablet See Rx Instructions .ROUTE .COMPLEX Qty: 6 0RF Rx Instructions: For 250 mg dose pack: take 500 mg today (day 1), then 250 mg for 4 days (days 2-5) albuterol sulfate 90 mcg/actuation aerosol powdr breath activated 2 inh inhalation Q4-6H PRN (Reason: shortness of breath or wheezing) Qty: 1 0RF No Action (DME) shower chair Medium 0 .Route .MEDSUPPLY Qty: 1 0RF Rx Instructions: Shower chair (DME) lancets [FreeStyle Lancets] 28 gauge misc See Rx Instructions .ROUTE .MEDSUPPLY Qty: 100 11RF Rx Instructions: Three times a day (DME) FreeStyle Lite Strips Strip See Rx Instructions .ROUTE .MEDSUPPLY Qty: 100 11RF Rx Instructions: As directed three times a day (DME) FreeStyle Precision Wellington Strips Strip See Rx Instructions .Route Qty: 50 5RF Rx Instructions: As directed once a day (DME) FreeStyle Lisa 2 Reading Misc See Rx Instructions .ROUTE .COMPLEX Qty: 1 0RF Dose Instruction: DIRECTED Rx Instructions: DIRECTED magnesium oxide 400 mg (241.3 mg magnesium) tablet 400 mg PO BEDTIME 30 Days Qty: 30 6RF Rx Instructions: may hold for loose stools (DME) pen needle, diabetic [Comfort EZ Pen [place]] 33 gauge x 5/32 needle See Rx Instructions .ROUTE .COMPLEX Qty: 50 4RF Dose Instruction: USE DIRECTED TWICE DAILY Rx Instructions: USE DIRECTED TWICE DAILY insulin glargine [Lantus Solostar U-100 Insulin] 100 unit/mL (3 mL) insulin pen 20 unit subcut QAM Qty: 15 0RF insulin lispro 100 unit/mL insulin pen 6 unit subcut TID Qty: 15 0RF (DME) FreeStyle Lisa 2 Sensor Kit See Rx Instructions .ROUTE .COMPLEX Qty: 2 6RF Dose Instruction: USE DIRECTED. CHANGE EVERY 2 WEEKS. Rx Instructions: USE DIRECTED. CHANGE EVERY 2 WEEKS. omeprazole 20 mg capsule,delayed release(DR/EC) 20 mg PO DAILY 90 Days Qty: 90 0RF Jardiance 25 mg tablet 25 mg PO DAILY Qty: 90 1RF prednisone 20 mg tablet 20 mg PO DAILY 5 Days Qty: 5 0RF naproxen 500 mg tablet 500 mg PO Q8-12H PRN (Reason: pain (scale score 4-6)) Qty: 30 0RF acetaminophen [Tylenol Extra Strength] 500 mg tablet 500 mg PO Q6H PRN (Reason: pain) Qty: 30 0RF albuterol sulfate 90 mcg/actuation HFA aerosol inhaler 2 puff inhalation Q4-6H PRN (Reason: shortness of breath or wheezing) Qty: 6.7 0RF (DME) Updraft machine See Rx Instructions .Route .MEDSUPPLY Qty: 1 0RF Rx Instructions: As directed albuterol sulfate 0.63 mg/3 mL solution for nebulization 0.63 mg inhalation QID PRN (Reason: shortness of breath or wheezing) Qty: 75 0RF mirtazapine 7.5 mg tablet 7.5 mg PO DAILY melatonin 10 mg capsule 10 mg PO BEDTIME PRN hydroxyzine pamoate 25 mg capsule 25 mg PO DAILY PRN mirtazapine 15 mg tablet 15 mg PO BEDTIME repaglinide 0.5 mg tablet PO Ozempic 2 mg/dose (8 mg/3 mL) pen injector 2 mg subcut QWEEK 28 Days Qty: 3 3RF Referrals: Terrance Huitron MD [Primary Care Provider] - 2 days Print Language: [place]
[2024-06-05 11:23] VITALS: BP 151/98; PULSE 101; RESP 18; TEMP 36.6; O2SAT 96; BMI 28.0
[2024-06-05 12:10] LABS: IDNOW Serial# 08D9AD1C; Strep A Nucleic Acid Negative (Negative)
[2024-06-05 12:13] LABS: COVID-19 Test Negative (Negative); IDNOW Serial# 152EDE1D
[2024-06-05 15:17] VITALS: BP 110/59; PULSE 92; RESP 20; TEMP 36.6; O2SAT 97
--- NOTE | 2024-06-05 15:17 | PC.NURSE ---
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
[2024-06-05 15:18] VITALS: BP 110/59; PULSE 92; RESP 20; TEMP 36.6; O2SAT 97
== END 2024-06-05 15:19 | disposition home or self-care (01) ==
PROVIDERS: Physician Assistant; Emergency Provider Emergency Medicine; PCP Internal Medicine
DX: J06.9 Acute upper respiratory infection, unspecified (principal); J03.90 Acute tonsillitis, unspecified; Z11.52 Encounter for screening for COVID-19; R05.9 Cough, unspecified
CPT/HCPCS: 71046; 87635; 87651; 99282; 99283

== ENCOUNTER 2024-06-09 08:55 | Outpatient (AMB) | payer OTHER, SELFPAY ==
[2024-06-09 09:01] VITALS: BMI 28.5
--- NOTE | 2024-06-09 09:01 | A.OFFVIS_ITS ---
VS Expanded 06/09/24 09:01 Height 5 ft 3 in Weight 161 lb 2.526 oz BMI 28.5 Intake Visit Reasons: T2DM/LVM w Interp Allergies No Known Allergies Allergy (Verified 06/05/24 11:24) Nutrition Presentation Details: Pt presents for MNT f/u for T2DM Pt reports working meal planning Continue with increased snacks at bedtime (reports typically salty foods) Saw endo recently and dm med was titrated BS Monitoring Most Recent Diabetes Results: No Data to Display PFSH Medical History Fibroids PMB (postmenopausal bleeding) Osteopenia Dyslipidemia Diabetic polyneuropathy associated with type 2 diabetes mellitus Diabetes type 2, uncontrolled Diabetes 1.5, managed as type 1 Panic anxiety syndrome Hospital discharge follow-up Vitamin D deficiency Carpal tunnel syndrome Incontinence Hemorrhoids Tubal occlusion Insomnia Elevated cholesterol Depression Hypertension IDDM (insulin dependent diabetes mellitus) Surgical History History of neck surgery History of surgery History of colonoscopy History of hemorrhoidectomy History of carpal tunnel release History of bladder surgery S/P sinus surgery Hx of breast reduction, elective Hx of appendectomy H/O tubal ligation History of heart artery stent Family History Father No problems noted. Mother Heart disease Lung cancer Brother Liver cancer Brother Renal cancer HTN (hypertension) Diabetes mellitus Maternal Grandfather No problems noted. Maternal Grandmother No problems noted. Paternal Grandfather No problems noted. Paternal Grandmother No problems noted. Maternal Uncle Diabetes mellitus Paternal Uncle Diabetes mellitus Son No problems noted. Daughter No problems noted. Social History Housing: House Alcohol intake: current Alcohol intake frequency: holidays/special occasions only Patient Tobacco Use Status: Former Tobacco user e-Cigarette/Vaping Use: Never Used service: No Current occupational status: disabled Current occupation: right hand dominant Sexual orientation: Straight/Heterosexual Gender identity: Female Cognitive needs: No Hearing needs: No Vision needs: Yes Female Reproductive History Menstrual Age of Menarche: 14 Assessment & Plan Assessment & Plan (1) Diabetic polyneuropathy associated with type 2 diabetes mellitus: Code(s): E11.42 - Type 2 diabetes mellitus with diabetic polyneuropathy Category: Medical Plan: Rec 1500 ADA meal plan? (40% carb, 30% fat, 30% prot) Used wt : 72kg Rec fluid as per 25 ml/kg bw:? 1800 Rec NA? 1500 mg/d REc fiber: 25 g /d Educate patient on: (R= Reviewed, V = verbalizes understanding N/R= Needs review N/A= not applicable) * Food sources of carbohydrates and serving adequate serving sizes : R V * Difference between complex carbohydrates and simple carbohydrates, role of fiber: R V * Differences between fats (MUFA/PUFA/saturated fats, trans fats) and food sources of various fats: R V * Food sources of sodium and salt and healthy modifications for heart health and kidney health: R v * Vitamins and minerals: R V * How to interpret food labels: R V * Healthy Plate method concept: R V * Physical activity: benefits and precaution: R V Patient Instructions: Include food sources of vitamin B Continue working on reducing on sugars/salty foods in the evening, choose 1/2 tuna or chicken sand or nuts as lower carb/lower salt snacks Drink water , herb infused water Coding Level of Care Code Nutr Indiv Subseq (21489) Diagnoses Diabetic polyneuropathy associated with type 2 diabetes mellitus E11.42 Time Spent (min) 25
== END 2024-06-09 09:19 | disposition home or self-care (01) ==
PROVIDERS: PCP Internal Medicine; Visit Provider Dietitian, Registered
DX: E11.42 Type 2 diabetes mellitus with diabetic polyneuropathy (principal)

== ENCOUNTER → 2024-06-09 08:55 | Outpatient (BNVA) | payer OTHER, SELFPAY | PROVIDERS: PCP Internal Medicine; Visit Provider Dietitian, Registered | DX: E11.42 Type 2 diabetes mellitus with diabetic polyneuropathy (principal) | CPT/HCPCS: 97803 ==

== ENCOUNTER 2024-06-10 09:11 | Outpatient (AMB) | payer OTHER, SELFPAY ==
--- NOTE | 2024-06-10 09:16 | MHC.OFFVIS ---
Intake Visit Reasons: OV - Left DeQuervains Intake Note: Emma is a 68 year old right hand dominant female who presents today for a follow up of her left De Quervain. Patient reports still having ongoing pain. She states that OT wasnt providing her with any relief. Patient is requesting some pain medication. Allergies No Known Allergies Allergy (Verified 06/10/24 09:22) HPI HPI OV - Left DeQuervains: Details: 68-year-old?right hand dominant female, who is French speaking, presents?in the office today for a follow-up of bilateral hand pain. I last saw the patient in the office on 04/15/2024 when she was given a comfort cool brace and referred to occupational therapy. We discussed surgical intervention and cortisone injection but deferred due to uncontrolled diabetes. ? ? While in the office today, the patient reports she is still having ongoing pain. She reports occupational therapy was not providing her with any relief. She would like to request pain medication. ? ? Patient has a medical history of diabetes mellitus. A1c as of 03/14/2024 was 8.6.? PFSH Medical History Fibroids PMB (postmenopausal bleeding) Osteopenia Dyslipidemia Diabetic polyneuropathy associated with type 2 diabetes mellitus Diabetes type 2, uncontrolled Diabetes 1.5, managed as type 1 Panic anxiety syndrome Hospital discharge follow-up Vitamin D deficiency Carpal tunnel syndrome Incontinence Hemorrhoids Tubal occlusion Insomnia Elevated cholesterol Depression Hypertension IDDM (insulin dependent diabetes mellitus) Surgical History History of neck surgery History of surgery History of colonoscopy History of hemorrhoidectomy History of carpal tunnel release History of bladder surgery S/P sinus surgery Hx of breast reduction, elective Hx of appendectomy H/O tubal ligation History of heart artery stent Family History Father No problems noted. Mother Heart disease Lung cancer Brother Liver cancer Brother Renal cancer HTN (hypertension) Diabetes mellitus Maternal Grandfather No problems noted. Maternal Grandmother No problems noted. Paternal Grandfather No problems noted. Paternal Grandmother No problems noted. Maternal Uncle Diabetes mellitus Paternal Uncle Diabetes mellitus Son No problems noted. Daughter No problems noted. Social History Housing: House Alcohol intake: current Alcohol intake frequency: holidays/special occasions only Patient Tobacco Use Status: Former Tobacco user e-Cigarette/Vaping Use: Never Used service: No Current occupational status: disabled Current occupation: right hand dominant Sexual orientation: Straight/Heterosexual Gender identity: Female Cognitive needs: No Hearing needs: No Vision needs: Yes Female Reproductive History Menstrual Age of Menarche: 14 Review of Systems Const All systems reviewed & are unremarkable except as noted in HPI and below Physical Exam Const General: cooperative, healthy appearing and no acute distress Resp Effort & Inspection: normal respiratory effort and able to speak in complete sentences Cardio Rate: regular rate Peripheral pulses: Peripheral pulses 2+ throughout GI Palpation (GI): Soft to palpation Skin Lesions: no lesions Rashes: no rashes Extrem Other: Left wrist: Normal to inspection. No ecchymosis, erythema, or edema. Tenderness to palpation over the first dorsal compartment. Able to perform full finger flexion, extension, abduction, adduction, finger cross, okay sign, and thumbs up without deficit. Able to make a closed fist. Positive Sheeba's Test. Sensation intact. Capillary refill is brisk. Radial pulse intact. Assessment & Plan Assessment & Plan (1) De Quervain's tenosynovitis, left: Code(s): M65.4 - Radial styloid tenosynovitis [de Quervain] Category: Medical Plan Ms. Moi Friedman is a 68-year-old?right hand dominant female, who is French speaking, presents?in the office today for a follow-up of bilateral hand pain. I last saw the patient in the office on 04/15/2024 when she was given a comfort cool brace and referred to occupational therapy. We discussed surgical intervention and cortisone injection but deferred due to uncontrolled diabetes. ? ? While in the office today, the patient reports she is still having ongoing pain. She reports occupational therapy was not providing her with any relief. She would like to request pain medication. ? ? Patient has a medical history of diabetes mellitus. A1c as of 03/14/2024 was 8.6.? ? I would like for the patient to be further evaluated by Dr. Prieto for De Quervain injections versus surgical intervention as this decision is complicated by the patient history of diabetes. Follow-up will be with Dr. Leiva, or sooner if needed. ? Patient Instructions: Scribed by Maxine Herrera medical staff services manager, for Michaelle Snow PA-C on 06/10/2024 at 9:40 am, EST.? Coding Level of Care Code Est Pt Level 3 (08442) Diagnoses De Quervain's tenosynovitis, left M65.4
== END 2024-06-10 09:37 | disposition home or self-care (01) ==
PROVIDERS: PCP Internal Medicine; Visit Provider Physician Assistant
DX: M65.4 Radial styloid tenosynovitis [de Quervain] (principal)
CPT/HCPCS: 99213

== ENCOUNTER → 2024-06-10 09:11 | Outpatient (BNVA) | payer OTHER, SELFPAY | PROVIDERS: PCP Internal Medicine; Visit Provider Physician Assistant | DX: M65.4 Radial styloid tenosynovitis [de Quervain] (principal) | CPT/HCPCS: 99212 ==

== ENCOUNTER 2024-06-17 10:50 | Outpatient (AMB) | payer OTHER, SELFPAY ==
--- NOTE | 2024-06-17 10:54 | A.OFFPC_ITS ---
Vital Signs 3 06/17/24 10:55 Height 5 ft 3 in Weight 156 lb 8 oz BMI 27.7 BP 122/74 Blood Pressure Location Lt brachial Position Sitting Pulse 83 Pulse Source Pulse Oximeter Pulse Oximetry (%) 98 Oxygen Delivery Method Room Air Intake Visit Reasons: 3 month follow up Allergies No Known Allergies Allergy (Verified 06/17/24 11:00) Medication List - Last Reconciled 06/17/24 by Terrance Huitron MD acetaminophen (Tylenol Extra Strength) 500 mg PO Q6H PRN albuterol sulfate 90 mcg/actuation 2 puffs inhalation Q4-6H PRN albuterol sulfate 90 mcg/actuation 2 inhalations inhalation Q4-6H PRN albuterol sulfate 0.63 mg (3 mL) inhalation QID PRN benzonatate 100 mg PO BID PRN blood sugar diagnostic (FreeStyle Lite Strips) As directed three times a day blood sugar diagnostic (FreeStyle Precision [place] Strips) As directed once a day empagliflozin (Jardiance) 25 mg PO DAILY flash glucose scanning reader (FreeStyle Lisa 2 [place]) DIRECTED flash glucose sensor (FreeStyle Lisa 2 Sensor kit) USE DIRECTED. CHANGE EVERY 2 WEEKS. hydroxyzine pamoate 25 mg PO DAILY PRN insulin glargine (Lantus Solostar U-100 Insulin) 20 units (0.2 mL) subcut QAM insulin lispro 6 units (0.06 mL) subcut TID lancets (FreeStyle Lancets) Three times a day magnesium oxide 400 mg PO BEDTIME 30 days melatonin 10 mg PO BEDTIME PRN mirtazapine 7.5 mg PO DAILY mirtazapine 15 mg PO BEDTIME omeprazole 20 mg PO DAILY 90 days pen needle, diabetic (Comfort EZ Pen [place]) USE DIRECTED TWICE DAILY repaglinide mg PO semaglutide (Ozempic) 2 mg (0.75 mL) subcut QWEEK 28 days [shower chair Shower chair] [Updraft machine As directed] Tobacco use date assessed: 06/17/24 Fall risk assessment: No Falls in past year Last assessed Fall Risk: 06/17/24 Dental Screening Dental Screen Date: 06/17/24 Did you have a dental visit in the last 12 months?: Yes Did you have a dental problem in the last 6 months where you did not have access to dental care?: No Was dental information given to patient?: Patient has dentist HPI 3 month follow up 2 HPI0 Details Chief complaint pain left thumb Patient says that she was diagnosed with thumb tendonitis But her pain is unbearable She is wearing a wrist splint Explained to patient that the wrist splint will not help her I have placed an Aric wrap to immobilize her thumb Also the daughter is here who tells me that patient placed a lot of video games Instructed patient to stop using the thumb as much as she can Treatment is immobilization elevation and let the tendon heel They have a appointment with the specialist end of June Patient is now seeing tmh teacher for the management of diabetes And psychiatric medications through Psychiatry She is taking no medication from this office [facility] Medical History Fibroids PMB (postmenopausal bleeding) Osteopenia Dyslipidemia Diabetic polyneuropathy associated with type 2 diabetes mellitus Diabetes type 2, uncontrolled Diabetes 1.5, managed as type 1 Panic anxiety syndrome Hospital discharge follow-up Vitamin D deficiency Carpal tunnel syndrome Incontinence Hemorrhoids Tubal occlusion Insomnia Elevated cholesterol Depression Hypertension IDDM (insulin dependent diabetes mellitus) Surgical History History of neck surgery History of surgery History of colonoscopy History of hemorrhoidectomy History of carpal tunnel release History of bladder surgery S/P sinus surgery Hx of breast reduction, elective Hx of appendectomy H/O tubal ligation History of heart artery stent Family History Father No problems noted. Mother Heart disease Lung cancer Brother Liver cancer Brother Renal cancer HTN (hypertension) Diabetes mellitus Maternal Grandfather No problems noted. Maternal Grandmother No problems noted. Paternal Grandfather No problems noted. Paternal Grandmother No problems noted. Maternal Uncle Diabetes mellitus Paternal Uncle Diabetes mellitus Son No problems noted. Daughter No problems noted. Social History Housing: House Alcohol intake: current Alcohol intake frequency: holidays/special occasions only Patient Tobacco Use Status: Former Tobacco user e-Cigarette/Vaping Use: Never Used service: No Current occupational status: disabled Current occupation: right hand dominant Sexual orientation: Straight/Heterosexual Gender identity: Female Cognitive needs: No Hearing needs: No Vision needs: Yes Female Reproductive History Menstrual Age of Menarche: 14 Questionnaire PHQ-9 Over the last 2 weeks, how often have you been bothered by any of the following problems? 1. Little interest or pleasure in doing things: several days 2. Feeling down, depressed, or hopeless: several days 3. Trouble falling or staying asleep, or sleeping too much: more than half the days 4. Feeling tired or having little energy: several days 5. Poor appetite or overeating: several days 6. Feeling bad about yourself - or that you are a failure or have let yourself or your family down: not at all 7. Trouble concentrating on things, such as reading the newspaper or watching television: not at all 8. Moving or speaking so slowly that other people could have noticed. Or the opposite - being so fidgety or restless that you have been moving around a lot more than usual: not at all 9. Thoughts that you would be better off or of hurting yourself in some way: not at all Total score: 6 Depression Screening Interpretation: Negative Depression Screening Done: Yes [id number] - PHQ-9 Billing: Yes Source: Developed by Drs. Octavio Quiles, Teagan Baig, Gumaro Fernandez and colleagues, with an educational nancy from [employer]. Thrive Questionnaire Date Thrive assessed: 06/17/24 I am a: Patient What is your living situation today?: I have a steady place to live Within the past 12 months, did the food you bought not last and you didn't have the money to get more?: Never true Within the past 12 months, did you worry whether your food would run out before you got money to buy more?: Never true Do you have trouble paying for medicines?: No Do you have trouble getting transportation to medical appointments?: No Do you have trouble paying your heating and electricity bill?: No Do you have trouble taking care of your child, family member or friend?: No Do you have trouble with day-to-day activities such as bathing, preparing meals, shopping, managing finances, etc.?: No Are you currently unemployed and looking for a job?: No Are you interested in more education?: No Please select the resources that you would like help with: None Currently or been in a relationship where the following occur: No concerns reported THRIVE Score: 0 AUDIT C Alcohol Use Questionnaire (AUDIT-C) 1. How often do you have a drink containing alcohol?: Never 3. How often do you have six or more drinks on one occasion?: Never Total Score: 0 Score Reviewed/Action Taken: Yes MAYA-7 AMB Questionnaire MAYA-7 Date MAYA - 7 assessed: 06/17/24 Feeling nervous, anxious, or on edge: 0 = Not at all Not being able to stop or control worryin = Not at all Worrying too much about different things: 0 = Not at all Trouble relaxin = Not at all Being so restless that it is hard to sit still: 0 = Not at all Becoming easily annoyed or irritable: 0 = Not at all Feeling afraid as if something awful might happen: 0 = Not at all Total MAYA-7 score (0-4 normal; 5-9 mild; 10-14 moderate; 15-21 severe): 0 Source: Developed by Drs. Octavio Quiles, Teagan Baig, Gumaro Fernandez and colleagues, with an educational nancy from [employer]. MAYA-7 Assessment Billing MAYA-7 Assessment Tool: MAYA-7 Assessment 33426 Review of Systems Const All systems reviewed & are unremarkable except as noted in HPI and below Physical exam (Primary Care) Vital Signs: Last Vital Signs Pulse 83 06/17/24 10:55 BP 122/74 06/17/24 10:55 Pulse Ox 98 06/17/24 10:55 Oxygen Delivery Method Room Air 06/17/24 10:55 BMI result Body Mass Index 27.7 Tobacco/Smoking Status: Tobacco use Status Tobacco use date assessed 06/17/24 06/17/24 11:01 Patient Tobacco Use Status Former Tobacco user 06/17/24 10:56 e-Cigarette/Vaping Use Never Used 06/17/24 10:56 PHQ-9: PHQ-9 Score PHQ-9: Total score 6 06/17/24 11:01 Depression Screening Interpretation: Negative Thrive Assessment: Date of Thrive Assessment Date Thrive assessed 06/17/24 06/17/24 11:01 Currently or been in a relationship where the following occur: No concerns reported Const General: no acute distress Orientation/consciousness: patient oriented x3 Eyes General: appearance normal, both eyes and all related structures Resp Effort & Inspection: normal respiratory effort and able to speak in complete sentences Auscultation: clear to auscultation bilaterally Neuro General: patient oriented x3 Extrem Hand/finger images: 2 1. Site of pain with active extension Psych Mental Status: mental status grossly normal Assessment and Plan Assessment & Plan (1) De Quervain's tenosynovitis, left: Code(s): M65.4 - Radial styloid tenosynovitis [de Quervain] Plan Chief complaint pain left thumb Patient says that she was diagnosed with thumb tendonitis But her pain is unbearable She is wearing a wrist splint Explained to patient that the wrist splint will not help her I have placed an Aric wrap to immobilize her thumb Also the daughter is here who tells me that patient placed a lot of video games Instructed patient to stop using the thumb as much as she can Treatment is immobilization elevation and let the tendon heel They have a appointment with the specialist end of June Patient is now seeing tmh teacher for the management of diabetes And psychiatric medications through Psychiatry She is taking no medication from this office Medications: Discontinued 2 benzonatate Discontinued Reason: Patient Completed Course 100 mg PO BID PRN 20 caps 0RF cough Coding Level of Care Code Est Pt Level 3 (41368) Diagnoses De Quervain's tenosynovitis, left M65.4 Additional Codes MAYA-7 Assessment Billing - MAYA-7 Assessment Tool: MAYA-7 Assessment [id number] ([id number])
[2024-06-17 10:55] VITALS: BP 122/74; PULSE 83; O2SAT 98; BMI 27.7
== END 2024-06-17 11:22 | disposition home or self-care (01) ==
PROVIDERS: PCP Internal Medicine; Visit Provider Internal Medicine
DX: M65.4 Radial styloid tenosynovitis [de Quervain] (principal)
CPT/HCPCS: 99213

== ENCOUNTER 2024-07-08 08:54 | Outpatient (AMB) | payer OTHER, SELFPAY ==
[2024-07-08 09:23] VITALS: BMI 27.7
--- NOTE | 2024-07-08 09:23 | A.OFFVIS_ITS ---
Vital Signs 07/08/24 09:23 Height 5 ft 3 in Weight 156 lb 8 oz BMI 27.7 Intake Visit Reasons: OV - Left DeQuervains Intake Note: Emma is a 68 yo right hand dominant female who presents today to discuss left DeQuervains pain that began approximately 4-5 months ago. Patient denies numbness and tingling. Denies locking on fingers. Patient states she is unable to do chores at home or lift items because of the level of pain. Patient states has a history of diabetes mellitus and would like to discuss operative and non- operative interventions. Last A1C 8.6% 03/14/24. EMG done 01/25/23 showing bilateral CTS as well as bilateral cubital tunnel neuropathy. Patient has had multiple carpal tunnel releases. Expediter Clerk Required: Yes Expediter Clerk Language: Electronics Engineer Name: SumeetJACOBO/ANNETTE Allergies No Known Allergies Allergy (Verified 07/08/24 09:23) HPI HPI OV - Left DeQuervains: Details: Emma is a 68 year old right hand dominant Estonian speaking Diabetic woman who presents to discuss her left De Quervain's Tenosynovitis. She complains of left radial sided wrist pain, worse with pinching, gripping, or lifting activities. She says she is limited in her daily activities by her pain. She has been wearing her thumb brace throughout the day, with limited relief. She found no relief from OT hand therapy and denies any other treatment options. She denies any numbness, tingling, locking, or catching. She has a hx of multiple bilateral carpal tunnel releases. Her right was released in 2009 & 02/2022 at an outside clinic, though she reports having had 3 carpal tunnel releases.. Her left was released in 2011, and likely another date as she reports having had 2 carpal tunnel releases. She has also had a right 1st dorsal compartment release & a thumb, index, and ring finger trigger releases. She says her ring finger developed an infection post-operatively. She has a Hx of 3 previous left carpal tunnel releases, and a middle & ring finger trigger release in the past. All her prior hand surgeries were done at an outside clinic. [facility], LAT[facility] Medical History Fibroids PMB (postmenopausal bleeding) Osteopenia Dyslipidemia Diabetic polyneuropathy associated with type 2 diabetes mellitus Diabetes type 2, uncontrolled Diabetes 1.5, managed as type 1 Panic anxiety syndrome Hospital discharge follow-up Vitamin D deficiency Carpal tunnel syndrome Incontinence Hemorrhoids Tubal occlusion Insomnia Elevated cholesterol Depression Hypertension IDDM (insulin dependent diabetes mellitus) Surgical History History of neck surgery History of surgery History of colonoscopy History of hemorrhoidectomy History of carpal tunnel release History of bladder surgery S/P sinus surgery Hx of breast reduction, elective Hx of appendectomy H/O tubal ligation History of heart artery stent Family History Father No problems noted. Mother Heart disease Lung cancer Brother Liver cancer Brother Renal cancer HTN (hypertension) Diabetes mellitus Maternal Grandfather No problems noted. Maternal Grandmother No problems noted. Paternal Grandfather No problems noted. Paternal Grandmother No problems noted. Maternal Uncle Diabetes mellitus Paternal Uncle Diabetes mellitus Son No problems noted. Daughter No problems noted. Social History Housing: House Alcohol intake: current Alcohol intake frequency: holidays/special occasions only Patient Tobacco Use Status: Former Tobacco user e-Cigarette/Vaping Use: Never Used service: No Current occupational status: disabled Current occupation: right hand dominant Sexual orientation: Straight/Heterosexual Gender identity: Female Cognitive needs: No Hearing needs: No Vision needs: Yes Female Reproductive History Menstrual Age of Menarche: 14 Review of Systems Const All systems reviewed & are unremarkable except as noted in HPI and below Physical Exam Vital Signs: BMI result Body Mass Index 27.7 Const General: cooperative, healthy appearing and no acute distress Orientation/consciousness: patient oriented x3 HEENT Head: Yes normocephalic and Yes atraumatic Eyes EOM: EOMs intact bilaterally Resp Effort & Inspection: normal respiratory effort and able to speak in complete sentences Cardio Jugular venous distension: no JVD Skin General skin exam: turgor normal Rashes: no rashes Neuro General: patient oriented x3 Extrem Other: Evaluation of Left Upper Extremity: The patient is alert, oriented, and in no acute distress Neuro: Median, Ulnar, Radial nerves motor and sensory intact and sensation is normal to the tips of all digits Vascular: Cap refill brisk ROM: She can make a fist and extend all her digits No locking or catching Skin: No lacerations or abrasions. General: No Ecchymosis. No Erythema or evidence of infection. Most tender over the 1st dorsal compartment Positive Finkelsteint est on the left No tenderness over the basal joint No tenderness over the MCP joint or a1 morgan Nerve Conduction Study: IMPRESSION: 1. Ibpy-uk-xusxodzb bilateral median neuropathy across carpal tunnel. 2. Mild bilateral ulnar neuropathy across cubital tunnel. Kortney Huitron MD 01/25/2023 Psych Appearance: grossly normal Affect: normal affect Attitude: cooperative Office Procedures Fracture Care Details: No fracture, injection Fracture Billing Code: Fracture Billing Code Assessment & Plan Assessment & Plan (1) De Quervain's tenosynovitis, left: Code(s): M65.4 - Radial styloid tenosynovitis [de Quervain] Category: Medical (2) Type 2 diabetes mellitus with unspecified complications: Code(s): E11.8 - Type 2 diabetes mellitus with unspecified complications Category: Medical (3) Carpal tunnel syndrome of right wrist: Code(s): G56.01 - Carpal tunnel syndrome, right upper limb Category: Medical (4) Carpal tunnel syndrome of left wrist: Code(s): G56.02 - Carpal tunnel syndrome, left upper limb Category: Medical Plan Assessment & Plan: 1. Left De Quervain's Tenosynovitis Positive Sheeba test I educated her about this condition I discussed operative and non-operative treatment options The patient would like to proceed with an injection I discussed activity modification, they should limit or avoid any heavy or repetitive pinching or gripping activities I think she would benefit from operative treatment. She will work on better managing her Diabetes before we can discuss surgery, as her most recent HgA1c was 8.6% on 03/14/24. I explained this needs to be <8.1%, and she expressed understanding. Injection #1: The risks and benefits of a steroid injection including but not limited to risk of damage to blood vessels, nerves, tendons, infection, skin bleaching, failure to improve symptoms, increased pain, and possible need for further injections or other intervention were discussed with the patient and the patient wishes to proceed with the steroid injection. Once consent was obtained, I sterilely prepped the area over the 1st dorsal compartment of the Left thumb. I then injected the 1st dorsal compartment with a combination of 1 mL of dexamethasone (4mg/ml), and 1% lidocaine. The patient tolerated the procedure well with no complications and good resolution of their symptoms prior to leaving clinic. If the patient continues to have pain 6-8 weeks following this injection, they may call to schedule appointment to discuss alternative treatment options She will follow up prn 2. Left carpal tunnel syndrome, mild-moderate Hx of 2 carpal tunnel releases at an outside clinic, she does not remember when the last 1 was Done at an outside clinic Normal sensation today in clinic Findings on EMG nerve conduction study may represent persistent chronic changes from before her carpal tunnel releases No operative indications. 3. Right carpal tunnel syndrome, mild-moderate Hx of 3 carpal tunnel releases at an outside clinic, in 2009 & 02/2022 and 3rd one unknown Done at an outside clinic No complaints. 4. Bilateral cubital tunnel syndrome, mild No complaints today in clinic Scribed for Rose Leiva MD by Niranjan Suarez, medical operations supervisor, on 07/08/24 at 9:55 AM, EST. Coding Level of Care Code Est Pt Level 3 (53814) Diagnoses De Quervain's tenosynovitis, left M65.4 Type 2 diabetes mellitus with unspecified complications E11.8 Carpal tunnel syndrome of right wrist G56.01 Carpal tunnel syndrome of left wrist G56.02 CPT Codes Fracture Care - Fracture Billing Code: Fracture Billing Code ([id number])
== END 2024-07-08 10:04 | disposition home or self-care (01) ==
PROVIDERS: PCP Internal Medicine; Visit Provider Orthopaedic Surgery
DX: M65.4 Radial styloid tenosynovitis [de Quervain] (principal); E11.8 Type 2 diabetes mellitus with unspecified complications; G56.03 Carpal tunnel syndrome, bilateral upper limbs
CPT/HCPCS: 20550; 99213

== ENCOUNTER → 2024-07-08 08:54 | Outpatient (BNVA) | payer OTHER, SELFPAY | PROVIDERS: PCP Internal Medicine; Visit Provider Orthopaedic Surgery | DX: M65.4 Radial styloid tenosynovitis [de Quervain] (principal); E11.65 Type 2 diabetes mellitus with hyperglycemia; E11.42 Type 2 diabetes mellitus with diabetic polyneuropathy; G56.03 Carpal tunnel syndrome, bilateral upper limbs; G56.23 Lesion of ulnar nerve, bilateral upper limbs | CPT/HCPCS: 20550; 99212; J1100 ==

== ENCOUNTER 2024-07-22 10:07 | Outpatient (AMB) | payer OTHER, SELFPAY ==
--- NOTE | 2024-07-22 10:09 | A.OFFVIS_ITS ---
Vital Signs 07/22/24 10:17 Height 5 ft 3 in Weight 158 lb 11.725 oz BMI 28.1 BP 120/72 Blood Pressure Location Rt brachial Pulse 113 H Pulse Source Pulse Oximeter Intake Visit Reasons: Type 2 DM/CONFIRMED Intake Note: Patient presents today for a follow-up on for Type 2 Diabetes Mellitus: Last Diabetic eye exam was on: 01/2024, had cataracts surgery, next appt in July. Last Podiatry exam was on: Does not see a Tire Debeader Most recent HbA1c: 8.8%, 07/22/2024 Random Glucose- 242 mg/dL, Today Tree Trimming Supervisor Required: Yes Tree Trimming Supervisor Language: Soil Biology Teacher Services: Tree Trimming Supervisor Present Tree Trimming Supervisor Name: JACOBO Reyes/ANGUS MCCLOUD Information Interpreted: non-clinical & clinical Accompanied by: Self / Same As Patient Allergies No Known Allergies Allergy (Verified 07/22/24 10:11) HPI Comments Details: Patient is a 68-year-old female with DM type [address] Marie 08/28/2023 and by myself in May 2024. A1c in the office today 8.9%, Last A1c 8.6% in 03/15/2024, previous was 2022 was 5.5% Past medical history: Diabetes type 2, hypertension, hyperlipidemia, osteopenia, sleep apnea, carpal tunnel syndrome. CAD status post stent, depression Micro and macrovascular complications: Neuropathy, CAD Metformin 500 mg 2 pills twice a day was stopped by her PCP this spring due to concerns about her EGFR which was 53 Diabetes medications: Jardiance 25 mg daily Ozempic 2 mg weekly (due to inability to get Trulicity 3.0) Lantus 20 units Humalog 10 units before meals takes typically twice daily, forgets third dose Freestyle zahra sensor 3 average glucose: [234 ] 14 day continous glucose sensor report reviewed Time in range: [35 ] % very high (above 250) 47 % high (181-250) 18 % in range (70-180] 0 % low (69-55) 0 % very low (below 54) details [ ] Hypoglycemia: Denies Hyperglycemia: + urinary frequency, + nocturia, polydypsia Complaints of numbness and tingling in feet at times No tobacco, alcohol 1 beer on Sunday and Sunday Exercise: walking Sunday through Sunday 30 minutes Livestock Slaughterer - CDE education: 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 Other specialists: cardiology She had elevated liver function tests earlier in the year. Her PCP recommended repeat LFTs which she has not yet done. [facility] Medical History (Updated 07/08/24 @ 09:58 by Niranjan Suarez) Fibroids PMB (postmenopausal bleeding) Osteopenia Dyslipidemia Diabetic polyneuropathy associated with type 2 diabetes mellitus Diabetes type 2, uncontrolled Diabetes 1.5, managed as type 1 Panic anxiety syndrome Hospital discharge follow-up Vitamin D deficiency Carpal tunnel syndrome Incontinence Hemorrhoids Tubal occlusion Insomnia Elevated cholesterol Depression Hypertension IDDM (insulin dependent diabetes mellitus) Surgical History (Updated 07/22/24 @ 10:22 by JACOBO Reyes) Hx of cataract surgery History of neck surgery History of surgery History of colonoscopy History of hemorrhoidectomy History of carpal tunnel release History of bladder surgery S/P sinus surgery Hx of breast reduction, elective Hx of appendectomy H/O tubal ligation History of heart artery stent Family History Father No problems noted. Mother Heart disease Lung cancer Brother Liver cancer Brother Renal cancer HTN (hypertension) Diabetes mellitus Maternal Grandfather No problems noted. Maternal Grandmother No problems noted. Paternal Grandfather No problems noted. Paternal Grandmother No problems noted. Maternal Uncle Diabetes mellitus Paternal Uncle Diabetes mellitus Son No problems noted. Daughter No problems noted. Social History Housing: House Alcohol intake: current Alcohol intake frequency: holidays/special occasions only Patient Tobacco Use Status: Former Tobacco user e-Cigarette/Vaping Use: Never Used service: No Current occupational status: disabled Current occupation: right hand dominant Sexual orientation: Straight/Heterosexual Gender identity: Female Cognitive needs: No Hearing needs: No Vision needs: Yes Female Reproductive History Menstrual Age of Menarche: 14 Physical Exam Vital Signs: Last Vital Signs Pulse 113 H 07/22/24 10:17 BP 120/72 07/22/24 10:17 BMI result Body Mass Index 28.1 Const Other: Absence of Cushingoid features. Absence of acromegalic features. Neck exam reveals nl size thyroid about 15 gms. No thyroid nodules palpable. No carotid bruits present. Lungs CTA. Heart S1 S2, Reg R/R. No M/R G. Skin exam reveals absence of vitiligo or acanthosis nigricans. Extrem Other: Visual exam of foot performed. No ulcerations or open lesions. No onchomycosis, no callouses. No inter digit fissuring or maceration Sensation intact to monofilament exam. Vibratory sensation is normal with 128 Hz tuning fork. Results AMB Hemoglobin A1c AMB Hemoglobin A1c 8.8 % Last Edit by JACOBO Reyes on 07/22/24 10:34 Results Reviewed Results Reviewed: Laboratory Last Values Glucose (Clinic) 242 mg/dL (60-115) H 07/22/24 10:26 Hgb A1c (Clinic) 8.8 % (4.0-6.0) H 07/22/24 10:33 Laboratory Tests 12/18/23 12/18/23 03/06/24 14:25 14:30 14:21 Potassium 4.1 Creatinine 1.04 Estim Creat Clear Calc 50.2 Estimated GFR 53 Hgb A1c (Clinic) Hemoglobin A1c % 7.5 H Calcium 9.1 D AST 108 H ALT 149 H LDL Cholesterol Direct 138 H Urine Creatinine 32.15 Urine Microalbumin 6.0 Microalb/Creat Ratio 18.6 03/14/24 10:56 Potassium Creatinine Estim Creat Clear Calc Estimated GFR Hgb A1c (Clinic) 8.6 H Hemoglobin A1c % Calcium AST ALT LDL Cholesterol Direct Urine Creatinine Urine Microalbumin Microalb/Creat Ratio Assessment & Plan Assessment & Plan (1) Type 2 diabetes mellitus with hypoglycemia without coma: Comment: Code(s): E11.649 - Type 2 diabetes mellitus with hypoglycemia without coma Category: Medical Plan: 68-year-old type 2 diabetic with neuropathy and CAD on basal/bolus insulin, Jardiance 25 mg and Ozempic 2 mg with an A1c in the office today of 8.9%. We will restart metformin a 1000 mg b.i.d.. For the 1st 3 days she will take just 1000 mg. This had been stopped for an EGFR of 53 which is in acceptable range. She will continue Lantus 20 units at night and NovoLog 10 units t.i.d. and we will focus on getting that 3rd dose of insulin every day. She would was advised to decrease portions of rice, follow a balanced meal paln and to continue to exercise Orders: Orders AMB Hemoglobin A1c Today E11.649 - Type 2 diabetes mellitus with hypoglycemia without coma Basic Metabolic Panel Today E11.649 - Type 2 diabetes mellitus with hypoglycemia without coma Complete Blood Count no Diff Today R79.89 - Other specified abnormal findings of blood chemistry Referrals Podiatry Referral E11.649 - Type 2 diabetes mellitus with hypoglycemia without coma Medications: New metformin 1,000 mg PO BID 60 tabs 11RF E11.649 - Type 2 diabetes mellitus with hypoglycemia without coma Changed From insulin lispro 6 units (0.06 mL) subcut TID 15 mL 3RF E11.649 - Type 2 di abetes mellitus with hypoglycemia without coma To insulin lispro 10 units (0.1 mL) subcut TID 9 mL 11RF 30 days E11.649 - Type 2 diabetes mellitus with hypoglycemia without coma Patient Instructions: The patient was counseled to achieve a target A1C of 7% (154 avg). Fasting blood sugars should be 90-130 in the morning and less than 180 two hours after meals. Reviewed the relationship between poor diabetic control and the developement of complications Coding Level of Care Code Est Pt Level 4 (27926) Complex EM visit Add On G2211 Diagnoses Type 2 diabetes mellitus with hypoglycemia without coma E11.649 Time Spent (min) 40 Comment Time spent reviewing labs/provider notes, face to face, chart doc
[2024-07-22 10:17] VITALS: BP 120/72; PULSE 113; BMI 28.1
[2024-07-22 10:30] LABS: Glucose, Whole Blood 242 mg/dL (60-115)
== END 2024-07-22 10:52 | disposition home or self-care (01) ==
PROVIDERS: PCP Internal Medicine; Visit Provider Nurse Practitioner Adult Health
DX: E11.649 Type 2 diabetes mellitus with hypoglycemia without coma (principal)
CPT/HCPCS: 99214; G2211

== ENCOUNTER → 2024-07-22 10:07 | Outpatient (BNVA) | payer OTHER, SELFPAY | PROVIDERS: PCP Internal Medicine; Visit Provider Nurse Practitioner Adult Health | DX: E11.649 Type 2 diabetes mellitus with hypoglycemia without coma (principal); R79.89 Other specified abnormal findings of blood chemistry | CPT/HCPCS: 82947; 83036; 99212 ==

== ENCOUNTER 2024-08-19 07:54 | Outpatient (REF) | payer OTHER, SELFPAY ==
[2024-08-19 08:35] LABS: Hematocrit 40.6 % (37.0-47.0); Hemoglobin 13.9 g/dl (12.0-16.0); Mean Corpuscular HGB Conc 34.2 g/dl (31.0-35.0); Mean Corpuscular Hemoglobin 30.2 pg (27.0-33.0); Mean Corpuscular Volume 88.3 fL (80.0-98.0); Mean Platelet Volume 9.7 fL (9.4-12.3); Platelet Count 164 X10*3/uL (160-400); White Blood Count 6.3 X10*3/uL (4.8-10.8)
[2024-08-19 08:43] LABS: Estimated Average Glucose 166 mg/dL; Hemoglobin A1c % 7.4 % (<6.0)
[2024-08-19 09:04] LABS: Alanine Aminotransferase 75 U/L (0-31); Albumin Level 4.2 g/dL (3.5-5.0); Alkaline Phosphatase 114 U/L (39-117); Anion Gap 14 (12-20); Aspartate Amino Transferase 43 U/L (5-31); Bilirubin Direct 0.1 mg/dL (0.0-0.5); Bilirubin Total 0.4 mg/dL (0.0-1.0); Blood Urea Nitrogen 22 mg/dL (9-16); Calcium 9.4 mg/dL (8.4-10.2); Carbon Dioxide 22 mmol/L (22-29); Chloride 109 mmol/L (96-108); Cholesterol 189 mg/dL (<200); Estimated Glomerular Filt Rate > 60; Glucose Random 152 mg/dL (60-115); HDL Cholesterol 38 mg/dL (>40); LDL Cholesterol Calculated 105 mg/dL (<100); Potassium 4.1 mmol/L (3.3-5.1); Sodium 141 mmol/L (135-145); Triglycerides 233 mg/dL (<150)
[2024-08-19 09:04] LABS: Creatinine Urine 89.01 mg/dL; Microalbum/Creatinine Ratio Ur 12.3 ug/mg cr (<30)
[2024-08-20 08:13] LABS: LDL Cholesterol Direct 126 mg/dL (<100)
== END 2024-08-19 07:55 | disposition home or self-care (01) ==
LOC: HO.LAB 07:54
PROVIDERS: Internal Medicine; PCP Internal Medicine; Visit Provider Nurse Practitioner Adult Health
DX: E11.649 Type 2 diabetes mellitus with hypoglycemia without coma (principal); R79.89 Other specified abnormal findings of blood chemistry; E11.8 Type 2 diabetes mellitus with unspecified complications; I25.10 Atherosclerotic heart disease of native coronary artery without angina pectoris; E78.5 Hyperlipidemia, unspecified; I10 Essential (primary) hypertension; E11.42 Type 2 diabetes mellitus with diabetic polyneuropathy; F41.0 Panic disorder [episodic paroxysmal anxiety]; E11.65 Type 2 diabetes mellitus with hyperglycemia
CPT/HCPCS: 36415; 80048; 80061; 80076; 82043; 82570; 83036; 83721; 85027

== ENCOUNTER 2024-08-22 09:51 | Outpatient (REF) | payer OTHER, SELFPAY ==
[2024-08-22 11:11] LABS: B Type Natriuretic Peptide < 10 pg/mL (<100)
[2024-08-22 11:41] LABS: Anion Gap 14 (12-20); Blood Urea Nitrogen 22 mg/dL (9-16); Calcium 10.1 mg/dL (8.4-10.2); Carbon Dioxide 24 mmol/L (22-29); Chloride 107 mmol/L (96-108); Estimated Glomerular Filt Rate 60; Glucose Random 115 mg/dL (60-115); Potassium 4.3 mmol/L (3.3-5.1); Sodium 141 mmol/L (135-145)
== END 2024-08-22 09:52 | disposition home or self-care (01) ==
LOC: HO.LAB 09:51
PROVIDERS: PCP Internal Medicine; Visit Provider Nurse Practitioner Adult Health
DX: E11.649 Type 2 diabetes mellitus with hypoglycemia without coma (principal)
CPT/HCPCS: 36415; 80048; 82947; 83880; 99212

== ENCOUNTER 2024-08-22 09:51 | Outpatient (AMB) | payer OTHER, SELFPAY ==
--- NOTE | 2024-08-22 09:53 | A.OFFVIS_ITS ---
Vital Signs 08/22/24 09:55 Height 5 ft 3 in Weight 158 lb 11.725 oz BMI 28.1 Blood Pressure Location Rt brachial Position Sitting Pulse Source Pulse Oximeter Intake Visit Reasons: Type 2 DM/CONFIRMED Intake Note: Patient presents today for a follow-up on for Type 2 Diabetes Mellitus: Last Diabetic eye exam was on: 01/2024, had cataracts surgery, next month Last Podiatry exam was on: Does not see a Nurse Ldr Most recent HbA1c: 8.8%, 07/22/2024 Random Glucose- 128 mg/dL, Today Electron Beam Photo Mask Technician Required: Yes Electron Beam Photo Mask Technician Language: Glass Rolling Machine Operator Services: Electron Beam Photo Mask Technician Offered & Declined Information Interpreted: non-clinical & clinical Accompanied by: Self / Same As Patient Allergies No Known Allergies Allergy (Verified 07/22/24 10:11) HPI Comments Details: Patient is a 68-year-old female with DM type 2 last seen in Endocrinology one month ago. Metfromin had been discontinued by her PCP for an eGFR of 53. This was restarted one month ago for an A1c 07/22/24 was 8.8%, Previous A1c 8.6% in 03/15/2024, 2022 was 5.5% Past medical history: Diabetes type 2, hypertension, hyperlipidemia, osteopenia, sleep apnea, carpal tunnel syndrome. CAD status post stent, depression Micro and macrovascular complications: Neuropathy, CAD Diabetes medications: Jardiance 25 mg daily Ozempic 2 mg weekly (due to inability to get Trulicity 3.0) Lantus 20 units Humalog 10 units before meals three times per day Freestyle zahra sensor 3 average glucose: [154 ] 14 day continuous glucose sensor report reviewed Glucose Management indicator [7 ] % TIme in ranges: [1 ] % very high (above 250) Twenty-eight % high (181-250) 79 % in range (70-180] 0 % low (69-55) 0 % very low (below 54) Interpretation of CGMS [glucose readings in good control ] Hypoglycemia: Denies Hyperglycemia: + urinary frequency, + nocturia, polydypsia Complaints of numbness and tingling in feet at times No tobacco, alcohol 1 beer on Sunday and Sunday Exercise: walking Sunday through Sunday 30 minutes Hazardous Materials Analyst - CDE 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 Her PCP recommended repeat LFTs which she has not yet done. [facility] Medical History Fibroids PMB (postmenopausal bleeding) Osteopenia Dyslipidemia Diabetic polyneuropathy associated with type 2 diabetes mellitus Diabetes type 2, uncontrolled Diabetes 1.5, managed as type 1 Panic anxiety syndrome Hospital discharge follow-up Vitamin D deficiency Carpal tunnel syndrome Incontinence Hemorrhoids Tubal occlusion Insomnia Elevated cholesterol Depression Hypertension IDDM (insulin dependent diabetes mellitus) Surgical History Hx of cataract surgery History of neck surgery History of surgery History of colonoscopy History of hemorrhoidectomy History of carpal tunnel release History of bladder surgery S/P sinus surgery Hx of breast reduction, elective Hx of appendectomy H/O tubal ligation History of heart artery stent Family History Father No problems noted. Mother Heart disease Lung cancer Brother Liver cancer Brother Renal cancer HTN (hypertension) Diabetes mellitus Maternal Grandfather No problems noted. Maternal Grandmother No problems noted. Paternal Grandfather No problems noted. Paternal Grandmother No problems noted. Maternal Uncle Diabetes mellitus Paternal Uncle Diabetes mellitus Son No problems noted. Daughter No problems noted. Social History Housing: House Alcohol intake: current Alcohol intake frequency: holidays/special occasions only Patient Tobacco Use Status: Former Tobacco user e-Cigarette/Vaping Use: Never Used service: No Current occupational status: disabled Current occupation: right hand dominant Sexual orientation: Straight/Heterosexual Gender identity: Female Cognitive needs: No Hearing needs: No Vision needs: Yes Female Reproductive History Menstrual Age of Menarche: 14 Physical Exam Vital Signs: BMI result Body Mass Index 28.1 Const Other: Absence of Cushingoid features. Absence of acromegalic features. Neck exam reveals nl size thyroid about 15 gms. No thyroid nodules palpable. Heart S1 S2, Reg R/R. No M/R G. Skin exam reveals absence of vitiligo or acanthosis nigricans. No edema Visual exam of foot performed. No ulcerations or open lesions. No inter digit maceration or fissuring. No onychomycosis, no callouses. Results Reviewed Results Reviewed: Laboratory Last Values Glucose (Clinic) 128 mg/dL (60-115) H 08/22/24 10:00 Laboratory Tests 08/19/24 08/22/24 08:12 10:36 Potassium 4.3 Estimated GFR 60 Hemoglobin A1c % 7.4 H B-Natriuretic Peptide < 10 LDL Cholesterol, Calc 105 H Laboratory Tests 08/19/24 08:02 Urine Microalbumin 11.0 Assessment & Plan Assessment & Plan (1) Type 2 diabetes mellitus with unspecified complications: Code(s): E11.8 - Type 2 diabetes mellitus with unspecified complications Category: Medical Plan: 68-year-old type 2 diabetic with substantially improved glycemic control. Her current 14 day sensor indicates an average of 154 with no significant postprandial hyperglycemia. This equates to an A1c of 7%. Her A1c 1 month ago was 8.7%. Given the improvement in her A1c she could undergo orthopedic shanae tanya. Orders: Orders B Type Natriuretic Peptide Today E11.649 - Type 2 diabetes mellitus with hypoglycemia without coma Basic Metabolic Panel Today E11.649 - Type 2 diabetes mellitus with hypoglycemia without coma Coding Level of Care Code Est Pt Level 4 (77723) Complex EM visit Add On G2211 Diagnoses Type 2 diabetes mellitus with unspecified complications E11.8 Time Spent (min) 30 Comment Time spent reviewing labs/provider notes, face to face, chart doc
[2024-08-22 09:55] VITALS: BMI 28.1
[2024-08-22 10:03] LABS: Glucose, Whole Blood 128 mg/dL (60-115)
== END 2024-08-22 10:12 | disposition home or self-care (01) ==
PROVIDERS: PCP Internal Medicine; Visit Provider Nurse Practitioner Adult Health
DX: E11.8 Type 2 diabetes mellitus with unspecified complications (principal)
CPT/HCPCS: 99214; G2211

== ENCOUNTER 2024-09-09 08:48 | Outpatient (AMB) | payer OTHER, SELFPAY ==
--- NOTE | 2024-09-09 08:54 | A.OFFVIS_ITS ---
VS Expanded 09/09/24 08:55 Height 5 ft 3 in Weight 160 lb 0.889 oz BMI 28.3 Intake Visit Reasons: T2DM Allergies No Known Allergies Allergy (Verified 07/22/24 10:11) Nutrition Presentation Details: Pt presents for MNT f/u for T2DM Pt presents with daughter to this appt and c/o not able to lose weight Pt admits to dietary indiscretion particularly int he evening - participates in adult center breakfast and lunch meal - has stopped participating in physical activities Per bg record 14 d bg average at 136 with 20.5% gluc variation, 92% within target, 8% above 180, none above 250, no hypoglycemia int he past 14 days. BS Monitoring Most Recent Diabetes Results: Microalb/Creat Ratio 12.3 ug/mg cr (<30) 08/19/24 Cholesterol 189 mg/dL (<200) 08/19/24 HDL Cholesterol 38 mg/dL (>40) L 08/19/24 Triglycerides 233 mg/dL (<150) H 08/19/24 Creatinine 0.94 mg/dL (0.5-1.4) 08/22/24 Blood Urea Nitrogen 22 mg/dL (9-16) H 08/22/24 Sodium 141 mmol/L (135-145) 08/22/24 Potassium 4.3 mmol/L (3.3-5.1) 08/22/24 Chloride 107 mmol/L (96-108) 08/22/24 Carbon Dioxide 24 mmol/L (22-29) 08/22/24 Calcium 10.1 mg/dL (8.4-10.2) 08/22/24 AST 43 U/L (5-31) H 08/19/24 ALT 75 U/L (0-31) H 08/19/24 Total Protein 8.0 g/dL (6.5-8.0) 08/19/24 Albumin 4.2 g/dL (3.5-5.0) 08/19/24 [facility] Medical History Fibroids PMB (postmenopausal bleeding) Osteopenia Dyslipidemia Diabetic polyneuropathy associated with type 2 diabetes mellitus Diabetes type 2, uncontrolled Diabetes 1.5, managed as type 1 Panic anxiety syndrome Hospital discharge follow-up Vitamin D deficiency Carpal tunnel syndrome Incontinence Hemorrhoids Tubal occlusion Insomnia Elevated cholesterol Depression Hypertension IDDM (insulin dependent diabetes mellitus) Surgical History Hx of cataract surgery History of neck surgery History of surgery History of colonoscopy History of hemorrhoidectomy History of carpal tunnel release History of bladder surgery S/P sinus surgery Hx of breast reduction, elective Hx of appendectomy H/O tubal ligation History of heart artery stent Family History Father No problems noted. Mother Heart disease Lung cancer Brother Liver cancer Brother Renal cancer HTN (hypertension) Diabetes mellitus Maternal Grandfather No problems noted. Maternal Grandmother No problems noted. Paternal Grandfather No problems noted. Paternal Grandmother No problems noted. Maternal Uncle Diabetes mellitus Paternal Uncle Diabetes mellitus Son No problems noted. Daughter No problems noted. Social History Housing: House Alcohol intake: current Alcohol intake frequency: holidays/special occasions only Patient Tobacco Use Status: Former Tobacco user e-Cigarette/Vaping Use: Never Used service: No Current occupational status: disabled Current occupation: right hand dominant Sexual orientation: Straight/Heterosexual Gender identity: Female Cognitive needs: No Hearing needs: No Vision needs: Yes Female Reproductive History Menstrual Age of Menarche: 14 Assessment & Plan Assessment & Plan (1) Diabetic polyneuropathy associated with type 2 diabetes mellitus: Code(s): E11.42 - Type 2 diabetes mellitus with diabetic polyneuropathy Category: Medical Plan: Rec 1500 ADA meal plan? (40% carb, 30% fat, 30% prot) Used wt : 72kg Rec fluid as per 25 ml/kg bw:? 1800 Rec NA? 1500 mg/d REc fiber: 25 g /d Educate patient on: (R= Reviewed, V = verbalizes understanding N/R= Needs review N/A= not applicable) * Food sources of carbohydrates and serving adequate serving sizes : R V * Difference between complex carbohydrates and simple carbohydrates, role of fiber: R V * Differences between fats (MUFA/PUFA/saturated fats, trans fats) and food sources of various fats: R V * Food sources of sodium and salt and healthy modifications for heart health and kidney health: R v * Vitamins and minerals: R V * How to interpret food labels: R V * Healthy Plate method concept: R V * Physical activity: benefits and precaution: R V Patient Instructions: -choose nutrient dense beverages: 1 cup of milk, 1/2 cup of juice diluted with water in place of soda - make a dinner meal routine, to reduce on snacks , consisting of 30 -45 g carb following healthy plat e method - see list of ideas Coding Level of Care Code Nutr Indiv Subseq (55171) Diagnoses Diabetic polyneuropathy associated with type 2 diabetes mellitus E11.42 Time Spent (min) 30
[2024-09-09 08:55] VITALS: BMI 28.3
== END 2024-09-09 09:31 | disposition home or self-care (01) ==
PROVIDERS: PCP Internal Medicine; Visit Provider Dietitian, Registered
DX: E11.42 Type 2 diabetes mellitus with diabetic polyneuropathy (principal)

== ENCOUNTER → 2024-09-09 08:48 | Outpatient (BNVA) | payer OTHER, SELFPAY | PROVIDERS: PCP Internal Medicine; Visit Provider Dietitian, Registered | DX: E11.42 Type 2 diabetes mellitus with diabetic polyneuropathy (principal) | CPT/HCPCS: 97803 ==

== ENCOUNTER 2024-11-03 09:04 | Outpatient (AMB) | payer OTHER, SELFPAY ==
--- NOTE | 2024-11-03 09:31 | A.OFFVIS_ITS ---
VS Expanded 11/03/24 09:38 Height 5 ft 3 in Weight 160 lb 14.999 oz BMI 28.5 Intake Visit Reasons: T2DM/CONF Allergies No Known Allergies Allergy (Verified 07/22/24 10:11) Nutrition Presentation Details: Pt presents for for MNT f/u for T2DM Pt reports resuming walking , walks about 1 hr, 4-5 times/wk Working on reducing amount of sugars/cabs from pastries 14 d bg average, 79% within target, no hypoglycemia BS Monitoring Most Recent Diabetes Results: Microalb/Creat Ratio 12.3 ug/mg cr (<30) 08/19/24 Cholesterol 189 mg/dL (<200) 08/19/24 HDL Cholesterol 38 mg/dL (>40) L 08/19/24 Triglycerides 233 mg/dL (<150) H 08/19/24 Creatinine 0.94 mg/dL (0.5-1.4) 08/22/24 Blood Urea Nitrogen 22 mg/dL (9-16) H 08/22/24 Sodium 141 mmol/L (135-145) 08/22/24 Potassium 4.3 mmol/L (3.3-5.1) 08/22/24 Chloride 107 mmol/L (96-108) 08/22/24 Carbon Dioxide 24 mmol/L (22-29) 08/22/24 Calcium 10.1 mg/dL (8.4-10.2) 08/22/24 AST 43 U/L (5-31) H 08/19/24 ALT 75 U/L (0-31) H 08/19/24 Total Protein 8.0 g/dL (6.5-8.0) 08/19/24 Albumin 4.2 g/dL (3.5-5.0) 08/19/24 [facility] Medical History Fibroids PMB (postmenopausal bleeding) Osteopenia Dyslipidemia Diabetic polyneuropathy associated with type 2 diabetes mellitus Diabetes type 2, uncontrolled Diabetes 1.5, managed as type 1 Panic anxiety syndrome Hospital discharge follow-up Vitamin D deficiency Carpal tunnel syndrome Incontinence Hemorrhoids Tubal occlusion Insomnia Elevated cholesterol Depression Hypertension IDDM (insulin dependent diabetes mellitus) Surgical History Hx of cataract surgery History of neck surgery History of surgery History of colonoscopy History of hemorrhoidectomy History of carpal tunnel release History of bladder surgery S/P sinus surgery Hx of breast reduction, elective Hx of appendectomy H/O tubal ligation History of heart artery stent Family History Father No problems noted. Mother Heart disease Lung cancer Brother Liver cancer Brother Renal cancer HTN (hypertension) Diabetes mellitus Maternal Grandfather No problems noted. Maternal Grandmother No problems noted. Paternal Grandfather No problems noted. Paternal Grandmother No problems noted. Maternal Uncle Diabetes mellitus Paternal Uncle Diabetes mellitus Son No problems noted. Daughter No problems noted. Social History Housing: House Alcohol intake: current Alcohol intake frequency: holidays/special occasions only Patient Tobacco Use Status: Former Tobacco user e-Cigarette/Vaping Use: Never Used service: No Current occupational status: disabled Current occupation: right hand dominant Sexual orientation: Straight/Heterosexual Gender identity: Female Cognitive needs: No Hearing needs: No Vision needs: Yes Female Reproductive History Menstrual Age of Menarche: 14 Assessment & Plan Assessment & Plan (1) Diabetic polyneuropathy associated with type 2 diabetes mellitus: Code(s): E11.42 - Type 2 diabetes mellitus with diabetic polyneuropathy Category: Medical Plan: Rec 1500 ADA meal plan? (40% carb, 30% fat, 30% prot) Used wt : 72kg Rec fluid as per 25 ml/kg bw:? 1800 Rec NA? 1500 mg/d REc fiber: 25 g /d Educate patient on: (R= Reviewed, V = verbalizes understanding N/R= Needs review N/A= not applicable) * Food sources of carbohydrates and serving adequate serving sizes : R V * Difference between complex carbohydrates and simple carbohydrates, role of fiber: R V * Differences between fats (MUFA/PUFA/saturated fats, trans fats) and food sources of various fats: R V * Food sources of sodium and salt and healthy modifications for heart health and kidney health: R v * Vitamins and minerals: R V * How to interpret food labels: R V * Healthy Plate method concept: R V * Physical activity: benefits and precaution: R V Patient Instructions: Choose fruit and nuts as snack at bedtime Choose foods with polyphenols (herbal teas, fruits , seeds) continue physically active as able and keep hydrated Coding Level of Care Code Nutr Indiv Subseq (73613) Diagnoses Diabetic polyneuropathy associated with type 2 diabetes mellitus E11.42 Time Spent (min) 20
[2024-11-03 09:38] VITALS: BMI 28.5
== END 2024-11-03 10:09 | disposition home or self-care (01) ==
PROVIDERS: PCP Internal Medicine; Visit Provider Dietitian, Registered
DX: E11.42 Type 2 diabetes mellitus with diabetic polyneuropathy (principal)

== ENCOUNTER → 2024-11-03 09:04 | Outpatient (BNVA) | payer OTHER, SELFPAY | PROVIDERS: PCP Internal Medicine; Visit Provider Dietitian, Registered | DX: E11.42 Type 2 diabetes mellitus with diabetic polyneuropathy (principal); E11.65 Type 2 diabetes mellitus with hyperglycemia; Z71.3 Dietary counseling and surveillance | CPT/HCPCS: 97803 ==

== ENCOUNTER 2024-11-17 14:59 | Outpatient (REF) | payer OTHER, SELFPAY ==
[2024-11-17 16:05] LABS: Hematocrit 42.9 % (37.0-47.0); Hemoglobin 14.3 g/dl (12.0-16.0); Mean Corpuscular HGB Conc 33.3 g/dl (31.0-35.0); Mean Platelet Volume 9.4 fL (9.4-12.3); Platelet Count 179 X10*3/uL (160-400); Red Blood Count 4.93 X10*6/uL (4.20-5.50); Red Cell Distribution Width 14.3 % (11.0-16.0); White Blood Count 7.3 X10*3/uL (4.8-10.8)
[2024-11-17 18:04] LABS: Albumin Level 4.3 g/dL (3.5-5.0); Anion Gap 12 (12-20); Aspartate Amino Transferase 42 U/L (5-31); Bilirubin Total 0.3 mg/dL (0.0-1.0); Blood Urea Nitrogen 15 mg/dL (9-16); Calcium 9.4 mg/dL (8.4-10.2); Carbon Dioxide 27 mmol/L (22-29); Chloride 107 mmol/L (96-108); Estimated Glomerular Filt Rate > 60; Glucose Random 111 mg/dL (60-115); Potassium 4.2 mmol/L (3.3-5.1); Sodium 142 mmol/L (135-145); Total Protein 8.3 g/dL (6.5-8.0)
[2024-11-17 19:09] LABS: Alanine Aminotransferase 72 U/L (0-31); Alkaline Phosphatase 107 U/L (39-117)
[2024-11-17 23:34] LABS: TSH reflex Free T4 1.24 uIU/mL (0.32-4.0)
[2024-11-20 11:44] LABS: Immunoglobulin A 452 mg/dL (70-320)
[2024-11-20 19:22] LABS: Transglutaminase IgA <1.0 U/mL
== END 2024-11-17 15:00 | disposition home or self-care (01) ==
LOC: HO.LAB 14:59
PROVIDERS: PCP Internal Medicine; Visit Provider Internal Medicine
DX: R10.9 Unspecified abdominal pain (principal); Z86.0100 Personal history of colon polyps, unspecified
CPT/HCPCS: 36415; 80053; 82784; 84443; 85027; 86364; 99202

== ENCOUNTER 2024-11-17 14:59 | Outpatient (AMB) | payer OTHER, SELFPAY ==
--- NOTE | 2024-11-17 15:05 | MHC.OFFVIS ---
Vital Signs 11/17/24 15:09 Height 5 ft 3 in Weight 182 lb 15.739 oz BMI 32.4 BP 140/64 H Blood Pressure Location Lt brachial Position Sitting Intake Visit Reasons: Abd pain, bloating, colo screening Intake Note: Emma presents in the office as a new patient for abdominal pains and bloating. CC: She states that she is here today for abdominal pains and bloating - denies any irregular bowel movement. Allergies No Known Allergies Allergy (Verified 11/17/24 15:11) HPI Comments Details: 68 y.o F with PMH of advanced polyps who is here for 2 main issues. 1) Hx of polyps - last colo 2016 (Dr Solitario) x3 tubular adenoma. Repeat recommended in 3 years but pt was not aware. Otherwise no diarrhea, no blood in stool. No fam hx of CRC. 2) Abd pain and bloating. Has been ongoing x years. Occurs at least once a week assoc with food intake. Describes it as a twisting cramp with bloating. No change in BM with this. Take omeprazole PRN which does help with this pain. PFSH Medical History Fibroids PMB (postmenopausal bleeding) Osteopenia Dyslipidemia Diabetic polyneuropathy associated with type 2 diabetes mellitus Diabetes type 2, uncontrolled Diabetes 1.5, managed as type 1 Panic anxiety syndrome Hospital discharge follow-up Vitamin D deficiency Carpal tunnel syndrome Incontinence Hemorrhoids Tubal occlusion Insomnia Elevated cholesterol Depression Hypertension IDDM (insulin dependent diabetes mellitus) Surgical History Hx of cataract surgery History of neck surgery History of surgery History of colonoscopy History of hemorrhoidectomy History of carpal tunnel release History of bladder surgery S/P sinus surgery Hx of breast reduction, elective Hx of appendectomy H/O tubal ligation History of heart artery stent Family History Father No problems noted. Mother Heart disease Lung cancer Brother Liver cancer Brother Renal cancer HTN (hypertension) Diabetes mellitus Maternal Grandfather No problems noted. Maternal Grandmother No problems noted. Paternal Grandfather No problems noted. Paternal Grandmother No problems noted. Maternal Uncle Diabetes mellitus Paternal Uncle Diabetes mellitus Son No problems noted. Daughter No problems noted. Social History Housing: House Alcohol intake: current Alcohol intake frequency: holidays/special occasions only Patient Tobacco Use Status: Former Tobacco user e-Cigarette/Vaping Use: Never Used service: No Current occupational status: disabled Current occupation: right hand dominant Sexual orientation: Straight/Heterosexual Gender identity: Female Cognitive needs: No Hearing needs: No Vision needs: Yes Female Reproductive History Menstrual Age of Menarche: 14 Review of Systems Const All systems reviewed & are unremarkable except as noted in HPI and below Physical Exam Vital Signs: Last Vital Signs BP 140/64 H 11/17/24 15:09 BMI result Body Mass Index 32.4 No apparent distress With obesity Nonicteric Abdomen soft, nondistended Alert and oriented x3, normal gait Assessment & Plan Assessment & Plan (1) Abdominal pain: Code(s): R10.9 - Unspecified abdominal pain Category: Medical (2) Personal history of colonic polyps: Code(s): Z86.0100 - Personal history of colon polyps, unspecified Category: Medical Plan Ddx for abd pain include PUD, celiac, gallstones, side effects from GLP1 Plan: - Labs - US abd - Switch to nexium 20 once daily - EGD will also be set up for eval Hx of polyps Overdue for follow up colo. This will be set up at the same time as the EGD (see above). Plan: - PEG prep Rxed - Pt aware to HOLD ozempic and Jardiance as per protocol Follow up after procedures Orders: Orders Complete Blood Count no Diff 11/17/24 R10.9 - Unspecified abdominal pain Comprehensive Met. Panel 11/17/24 R10.9 - Unspecified abdominal pain Transglutaminase IgA 11/17/24 R10.9 - Unspecified abdominal pain TSH reflex Free T4 11/17/24 R10.9 - Unspecified abdominal pain US abdomen complete 11/17/24 R10.9 - Unspecified abdominal pain Immunoglobulin A 11/17/24 R10.9 - Unspecified abdominal pain Medications: New esomeprazole magnesium 20 mg PO DAILY 90 caps 1RF 90 days R10.9 - Unspecified abdominal pain peg 3350-electrolytes 236-22.74-6.74 -5.86 gram (Golytely) as per split prep instructions, until fecal effluent is clear 240 mL PO Q10M 4,000 mL 0RF colonoscopy Discontinued omeprazole Discontinued Reason: Doctor's Order 20 mg PO DAILY 90 days 90 caps 0RF Coding Level of Care Code New Pt Level 4 (97528) Diagnoses Abdominal pain R10.9 Personal history of colonic polyps Z86.0100
[2024-11-17 15:09] VITALS: BP 140/64; BMI 32.4
== END 2024-11-17 15:48 | disposition home or self-care (01) ==
PROVIDERS: PCP Internal Medicine; Visit Provider Internal Medicine
DX: R10.9 Unspecified abdominal pain (principal); Z86.0100 Personal history of colon polyps, unspecified
CPT/HCPCS: 99204

== ENCOUNTER 2024-12-11 08:28 | Outpatient (AMB) | payer OTHER, SELFPAY ==
--- NOTE | 2024-12-11 08:33 | A.OFFVIS_ITS ---
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 Most recent HbA1c: 6.8%, 12/11/2024 Random Glucose- 139 mg/dL, Today Human Resources Operations Specialist Required: Yes Human Resources Operations Specialist Language: Labor Specialist Services: Human Resources Operations Specialist Offered & Declined Information Interpreted: non-clinical & clinical Accompanied by: Self / Same As Patient Allergies No Known Allergies Allergy (Verified 12/11/24 08:34) Medication List - Last Reconciled 12/11/24 by Tiffanie Gooden NP albuterol sulfate 90 mcg/actuation 2 inhalations inhalation Q4-6H PRN albuterol sulfate 0.63 mg (3 mL) inhalation QID PRN blood sugar diagnostic (FreeStyle Lite Strips) As directed three times a day blood sugar diagnostic (FreeStyle Precision [place] Strips) As directed once a day blood-glucose sensor (FreeStyle Lisa 3 Plus Sensor device) Apply new sensor every 15 days empagliflozin (Jardiance) 25 mg PO DAILY esomeprazole magnesium 20 mg PO DAILY 90 days flash glucose scanning reader (FreeStyle Lisa 2 Beccaria) DIRECTED flash glucose sensor (FreeStyle Lisa 2 Sensor kit) USE DIRECTED. CHANGE EVER Y 2 WEEKS. 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 Patient is a 68-year-old female with DM type 2 last seen in Endocrinology 08/22/24. Hemoglobin A1c 6.8% on 12/11/2024 down from 8.8% 07/22/24 Past medical history: Diabetes type 2, hypertension, hyperlipidemia, osteopenia, sleep apnea, carpal tunnel syndrome. 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 [facility] screen Fibrosis-4 (Fib-4) Index for liver fibrosis (calculated on lab work done: 11/18) 1.83 points Advanced fibrosis excluded Approximate Fibrosis stage Teetee 2-3 *Use with caution in patients <35 or >65 years old, as the score has been shown to be less reliable in these patients. Prior Imaging Action Plan: refer to GI for workup [facility] Medical History Fibroids PMB (postmenopausal bleeding) Osteopenia Dyslipidemia Diabetic polyneuropathy associated with type 2 diabetes mellitus Diabetes type 2, uncontrolled Diabetes 1.5, managed as type 1 Panic anxiety syndrome Hospital discharge follow-up Vitamin D deficiency Carpal tunnel syndrome Incontinence Hemorrhoids Tubal occlusion Insomnia Elevated cholesterol Depression Hypertension IDDM (insulin dependent diabetes mellitus) Surgical History Hx of cataract surgery History of neck surgery History of surgery History of colonoscopy History of hemorrhoidectomy History of carpal tunnel release History of bladder surgery S/P sinus surgery Hx of breast reduction, elective Hx of appendectomy H/O tubal ligation History of heart artery stent Family History Father No problems noted. Mother Heart disease Lung cancer Brother Liver cancer Brother Renal cancer HTN (hypertension) Diabetes mellitus Maternal Grandfather No problems noted. Maternal Grandmother No problems noted. Paternal Grandfather No problems noted. Paternal Grandmother No problems noted. Maternal Uncle Diabetes mellitus Paternal Uncle Diabetes mellitus Son No problems noted. Daughter No problems noted. Social History Housing: House Alcohol intake: current Alcohol intake frequency: holidays/special occasions only Patient Tobacco Use Status: Former Tobacco user e-Cigarette/Vaping Use: Never Used service: No Current occupational status: disabled Current occupation: right hand dominant Sexual orientation: Straight/Heterosexual Gender identity: Female Cognitive needs: No Hearing needs: No Vision needs: Yes Female Reproductive History Menstrual Age of Menarche: 14 Physical Exam Vital Signs: Last Vital Signs Pulse 64 12/11/24 08:36 BP 116/64 12/11/24 08:36 BMI result Body Mass Index 28.1 Const Other: Absence of Cushingoid features. Absence of acromegalic features. Neck exam reveals nl size thyroid about 15 gms. No thyroid nodules palpable. No carotid bruits present. Lungs CTA. Heart S1 S2, Reg R/R. No M/R G. Skin exam reveals absence of vitiligo or acanthosis nigricans. No edema Visual exam of foot performed. No ulcerations or open lesions. No inter digit maceration or fissuring. No onychomycosis, no callouses. Sensation intact to monofilament exam. Vibratory sensation is normal with 128 Hz tuning fork. Unable to check capillary refill has nail mozambican on positive pulse Results AMB Hemoglobin A1c AMB Hemoglobin A1c 6.8 % Last Edit by JACOBO Reyes on 12/11/24 08:49 Results Reviewed Results Reviewed: Laboratory Last Values Glucose (Clinic) 139 mg/dL (60-115) H 12/11/24 08:41 Hgb A1c (Clinic) 6.8 % (4.0-6.0) H 12/11/24 08:47 Assessment & Plan Assessment & Plan (1) Diabetes type 2, uncontrolled: Code(s): E11.65 - Type 2 diabetes mellitus with hyperglycemia Category: Medical Qualifiers: Coma presence: without coma Glycemic state: with hypoglycemia Qualified Code(s): E11.649 - Type 2 diabetes mellitus with hypoglycemia without coma Plan: 64 type 2 diabetic with neuropathy and CAD with improved glycemic control. A1c in the office today is 6.8% down from over 8. She requested a change to Mounjaro as she is having difficulty with her weight. I reviewed that her insurance would not cover this given that she has well- controlled diabetes on the Ozempic and that there are no cardiovascular data o utcome for Mounjaro and we would need to titrate to the lowest dose to the highest which may worsen diabetes control. She is following with GI medicine for elevated liver function tests and fib 4 calc is 2-3 Teetee. We will transition to freestyle Lisa 3+ as they will be phasing out Lisa 2 and this patient will benefit from having continuous glucose readings. Continue current medication See Brianna Gutierrez RD Increase exercise to 30 minutes daily adding walking after supper The patient had an opportunity to ask questions regarding treatment plan. The patient expressed understanding and agreement with the above treatment plan. The patient is aware they should contact our office by phone for worsening glucose readings or for any low blood sugars which may warrant a change in diabetes medication. Compliance is encouraged with medications and any followup testing/consults which may have been ordered. Orders: Orders AMB Hemoglobin A1c Today E11.649 - Type 2 diabetes mellitus with hypoglycemia without coma Medications: New blood-glucose sensor (FreeStyle Lisa 3 Plus Sensor device) Apply new sensor every 15 days 2 ea 11RF E11.649 - Type 2 diabetes mellitus with hypoglycemia without coma blood-glucose sensor (FreeStyle Lisa 3 Plus Sensor device) Apply new sensor every 15 days 2 ea 11RF E11.649 - Type 2 diabetes mellitus with hypoglycemia without coma blood-glucose sensor (FreeStyle Lisa 3 Plus Sensor device) Apply new sensor every 15 days 2 ea 11RF E11.649 - Type 2 diabetes mellitus with hypoglycemia without coma Patient Instructions: The patient was counseled to always carry a source of sugar and on the rule of 15's: Take 3 glucose tablets and repeat again in 15 minutes if blood sugar is not in normal range. Continue to repeat every 15 minutes until blood sugar is normal. The patient was counseled to achieve a target A1C of 7% (154 avg). Fasting blood sugars should be 90-130 in the morning and less than 180 two hours after meals. Reviewed the relationship between poor diabetic control and the development of complications. Check your feet daily looking for any signs of infection, ulceration and seek medical attention if this occurs. Break in shoes gradually and do not wear open-toed shoes or walk barefooted. Coding Level of Care Code Est Pt Level 5 (83379) Complex EM visit Add On G2211 Diagnoses Uncontrolled type 2 diabetes mellitus with hypoglycemia without coma E11.649 Coma presence: without coma Glycemic state: with hypoglycemia Time Spent (min) 45 Comment Time spent reviewing labs/provider notes, face to face, chart doc
[2024-12-11 08:36] VITALS: BP 116/64; PULSE 64; BMI 28.1
[2024-12-11 08:44] LABS: Glucose, Whole Blood 139 mg/dL (60-115)
== END 2024-12-11 09:23 | disposition home or self-care (01) ==
PROVIDERS: PCP Internal Medicine; Visit Provider Nurse Practitioner Adult Health
DX: E11.649 Type 2 diabetes mellitus with hypoglycemia without coma (principal)
CPT/HCPCS: 99215; G2211

== ENCOUNTER → 2024-12-11 08:28 | Outpatient (BNVA) | payer OTHER, SELFPAY | PROVIDERS: PCP Internal Medicine; Visit Provider Nurse Practitioner Adult Health | DX: E11.649 Type 2 diabetes mellitus with hypoglycemia without coma (principal) | CPT/HCPCS: 82947; 83036; 99212 ==

== ENCOUNTER 2024-12-18 09:01 | Outpatient (REF) | payer OTHER, SELFPAY ==
--- NOTE | ~2024-12-18 | US_ITS ---
CLINICAL HISTORY: R10.9 - Unspecified abdominal pain US abdomen complete Comparison: None Findings: The visualized pancreas is normal. The aorta and inferior vena cava are normal caliber. The appearance of the liver suggests fatty infiltration without focal lesion. There is no intrahepatic bile duct dilatation. The common duct is 4.0 mm in diameter. The gallbladder is normal. There is no sonographic Albert sign. The main portal vein is antegrade. The right kidney is 12.0 cm in length. The left kidney is 12.1 cm in length. The spleen is normal. No ascites. IMPRESSION: 1. Hepatic steatosis. This document has been electronically signed by: Dawood Black MD on 12/19/2024 08:09:59
== END 2024-12-18 09:02 | disposition home or self-care (01) ==
LOC: HO.US 09:01
PROVIDERS: PCP Internal Medicine; Visit Provider Internal Medicine
DX: R10.9 Unspecified abdominal pain (principal)
CPT/HCPCS: 76700

== ENCOUNTER → 2024-12-18 09:06 | Outpatient (BNV) | payer OTHER, SELFPAY | PROVIDERS: PCP Internal Medicine; Visit Provider Specialist | DX: K76.0 Fatty (change of) liver, not elsewhere classified (principal) | CPT/HCPCS: 76700 ==

== ENCOUNTER 2025-01-06 14:58 | Outpatient (AMB) | payer OTHER, SELFPAY ==
--- NOTE | 2025-01-06 15:33 | MHC.AMDMED ---
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 Bus Driver Language: Mannequin Decorator Name: Ann Marie [phone] Accompanied by: Self / Same As Patient Allergies No Known Allergies Allergy (Verified 12/11/24 08:34) HPI Comprehensive Diabetes Asmnt Most Recent Diabetes Results: Microalb/Creat Ratio 12.3 ug/mg cr (<30) 08/19/24 Cholesterol 189 mg/dL (<200) 08/19/24 HDL Cholesterol 38 mg/dL (>40) L 08/19/24 Triglycerides 233 mg/dL (<150) H 08/19/24 Creatinine 0.80 mg/dL (0.5-1.4) 11/17/24 Blood Urea Nitrogen 15 mg/dL (9-16) 11/17/24 Sodium 142 mmol/L (135-145) 11/17/24 Potassium 4.2 mmol/L (3.3-5.1) 11/17/24 Chloride 107 mmol/L (96-108) 11/17/24 Carbon Dioxide 27 mmol/L (22-29) 11/17/24 Calcium 9.4 mg/dL (8.4-10.2) 11/17/24 AST 42 U/L (5-31) H 11/17/24 ALT 72 U/L (0-31) H 11/17/24 Total Protein 8.3 g/dL (6.5-8.0) H 11/17/24 Albumin 4.3 g/dL (3.5-5.0) 11/17/24 PFSH Medical History Fibroids PMB (postmenopausal bleeding) Osteopenia Dyslipidemia Diabetic polyneuropathy associated with type 2 diabetes mellitus Diabetes type 2, uncontrolled Diabetes 1.5, managed as type 1 Panic anxiety syndrome Hospital discharge follow-up Vitamin D deficiency Carpal tunnel syndrome Incontinence Hemorrhoids Tubal occlusion Insomnia Elevated cholesterol Depression Hypertension IDDM (insulin dependent diabetes mellitus) Surgical History Hx of cataract surgery History of neck surgery History of surgery History of colonoscopy History of hemorrhoidectomy History of carpal tunnel release History of bladder surgery S/P sinus surgery Hx of breast reduction, elective Hx of appendectomy H/O tubal ligation History of heart artery stent Family History Father No problems noted. Mother Heart disease Lung cancer Brother Liver cancer Brother Renal cancer HTN (hypertension) Diabetes mellitus Maternal Grandfather No problems noted. Maternal Grandmother No problems noted. Paternal Grandfather No problems noted. Paternal Grandmother No problems noted. Maternal Uncle Diabetes mellitus Paternal Uncle Diabetes mellitus Son No problems noted. Daughter No problems noted. Social History Housing: House Alcohol intake: current Alcohol intake frequency: holidays/special occasions only Patient Tobacco Use Status: Former Tobacco user e-Cigarette/Vaping Use: Never Used service: No Current occupational status: disabled Current occupation: right hand dominant Sexual orientation: Straight/Heterosexual Gender identity: Female Cognitive needs: No Hearing needs: No Vision needs: Yes Female Reproductive History Menstrual Age of Menarche: 14 Assessment & Plan Assessment & Plan (1) Diabetes 1.5, managed as type 1: Code(s): E13.9 - Other specified diabetes mellitus without complications Plan: Patient at visit to set up an Dog[employer]acaye 3+ with phone katherine Instructed patient sensors water proof you can shower, or swim do not submerge sensor in water for over 30 minutes Is sensor falls off cannot put back in you need to replace sensor, customer service number given to patient for sensor replacement Sensor placed on the back of Left arm Patient left visit with sensor in warmup Reviewed how to interpret trend arrows Reminded patient that to check finger sticks if symptoms do not match sensor reading. Discussed lag time between finger stick and sensor data.? Instructed patient she should always keep blood glucometer for backup testing if needed Reviewed delay of CGM from fingersticks Reminded pt that if symptoms do not match sensor still needs to check fingersticks. Portions of this note were created using voice recognition software, please excuse any words or phrases that may have been misinterpreted. Patient Instructions: Instrucciones para el paciente: CGM proporciona informaci?n sobre el control de la glucosa en luis a lo jorge luis del d?a, incluidas la hiperglucemia y la hipoglucemia. Contin?e controlando la glucosa en luis seg?n las instrucciones. Siga las pautas de nutrici?n proporcionadas. Informe cualquier molestia de inmediato al proveedor de atenci?n m?dica. Mantente wanda hidratado. Puede ba?arse, ducharse, nadar y hacer ejercicio mientras usa el sensor de glucosa. No sumerja el sensor de glucosa en agua fani m?s de 30 minutos. Retire el sensor para papi resonancia magn?miller o papi tomograf?a computarizada. Evite la m?quina de letitia X en los aeropuertos: retire el sensor o solicite la varita Coding Level of Care Code Est Pt Level 1 (28647) Diagnoses Diabetes 1.5, managed as type 1 E13.9
== END 2025-01-06 15:35 | disposition home or self-care (01) ==
PROVIDERS: PCP Internal Medicine; Visit Provider Registered Nurse Diabetes Educator
DX: E13.9 Other specified diabetes mellitus without complications (principal)

== ENCOUNTER → 2025-01-06 14:58 | Outpatient (BNVA) | payer OTHER, SELFPAY | PROVIDERS: PCP Internal Medicine; Visit Provider Registered Nurse Diabetes Educator | DX: E13.9 Other specified diabetes mellitus without complications (principal) | CPT/HCPCS: 99211 ==

== ENCOUNTER 2025-01-14 11:58 | Outpatient (REF) | payer OTHER, SELFPAY ==
--- OUTSIDE RECORDS SUMMARY | 2025-01-14 12:31 | XMS_ITS | Encounter Summary ---
Author Organization [employer] Address [address] [place] [address] Care Team Providers Care Quality Compliance Manager Name Role Phone Kasandra Mehta MD Primary Care Prov ider Encounter Details Date Type Department Care Team (Late st Contact Info) Description 01/09/2025 8:15 AM EST Office Visit Orthopedic Surgery - [place] [address] [facility] [address] [place] [phone] Gladys Rojas MD 175 [facility] [address] [place] [phone] Surgery follow-up (Primary Dx); De Quervain's tenosynovitis; Calcific tendonitis of right shoulder Social History Tobacco Use Types Packs/Day Years Used Date Smoking Tobacco: Former Cigarettes Q uit: 11/26/1999 Smokeless Tobacco: Never Alcohol Use Standard Drinks/Week Comments No 0 (1 standard drink = 0.6 oz pur e alcohol) Comments No Sex and Gender Information Value Date Recorded Sex Assigned at Female 11/10/2024 2:35 PM EST Legal Sex Female 5:43 AM EST Gender Identity Female 11/10/2024 2:35 PM EST Sexual Orientation Straight 11/10/2024 2: 35 PM EST documented as of this encounter Progress Notes * Gladys Rojas MD - 01/09/2025 8:15 AM EST Post-op Note (within 90 days of surgical procedure) Procedure: Left wrist first dorsal compartment release Date of surgery: 11/20/24 Subjective: Patient underwent surgery back in October. Generally things have healed up well. She has less pain around the dorsal radial side of the wrist and she feels as though her pinch and grasp has improved. The bigger issue today is actually her right shoulder. Patient has a long history of aching in her right shoulder there had been no specific trauma but she had a recent flareup where it was very painful so her physician gave her prescription to go to therapy. It looks like she has had a couple of visits. She has not yet found that this is given her relief. It aches around the shoulder and hurts when she tries to lift it. Objective: Inspection of the left wrist at the surgical site shows that the incision is well-healedsoft and mobilized. She is able to circumduct the thumb flex and extend it and she can flex and extend the wrist quite easily and does not appear to have any discomfort or limitations. She can make afull fist. She has a little achiness when I palpate over the area but nothing untoward. There is nosnapping or subluxation of the tendon. I then had the patient do range of motion of both shoulders. She is quite stiff bilaterally but more so on the right. Forward flexion on the left she goes to 150 and on the right only to about 110. With her arms at her side and external rotation both go to about 50. Internal rotation is limited on the left where she can just put the back of her left hand onto her buttock. On the right she can even get the hand behind her back and she is at her belt line. With pure abduction on both shoulder shehikes up the scapula on the right when she gets past about 40 degrees. On the left she is able to abduct the humerus out to approximately 55 to 60 degrees and then starts to hike up the scapula. To pa lpation she is not tender along the acromion edge laterally or anteriorly on the left. She does have some slight anterior acromial tenderness to palpation on the right. AC joint is a little tender. Assessment: No diagnosis found. Plan: In regards to the left wrist she may do activities as tolerated no further treatment is warranted and I think over time scar will continue to soften and she will have continued lessening of theresidual aching that is present. For the shoulder I think they need to work on both shoulders and again with the calcific tendinitisthere I think stretching the cuffs and also stabilizing the scapula will be important. I would refrain from subacromial steroid injections given a history of diabetes and also her general osteopenia.It is unclear to me what her kidney function is at the present time. She has just changed PCP physic ians in the last few months. She does state that she was diagnosed with fatty liver. I will plan tosee her in 3 months just to keep tabs on her progress. In addition we will just look ahead and haveher have a consultation with Dr. Tafoya regarding her right shoulder. Follow-up: 3 month Gladys Rojas MD documented in this encounter Plan of Treatment Upcoming Encounters Date Type Department Care Team (Late st Contact Info) Description 01/19/2025 12:30 PM EST Treatment Outpatient Rehabilitation [address] [phone] Cruzito Pulido, PT 02/02/2025 11:00 AM EDT Office Visit Orthopedic Surgery [facility] [address] [phone] Claudio Tafoya MD [address] [address] 04/07/2025 9:30 AM EDT Office Visit Orthopedic Surgery [facility] [address] [phone] Gladys Rojas MD [address] [place] [phone] 05/28/2025 8:30 AM EDT Office Visit Adult Medicine [address] [phone] Kasandra Mehta MD [address] [place] [address] documented as of this encounter Goals Goal Patient Goal Type Associated Problems Recent Progress Patient-Stated? Author STG's 6 visits General Yes Cruzito Pulido, PT Note: Pt will demonstrate combined right shoulder ext, adduction and IR to L4 for dressing behind back. Pt is Independent and compliant with initial HEP. Pt will report R shoulder pain of no more than 4/10 on VAS during use of R UE. Pt will demonstrate R shoulder active elevations of 130 degrees or better for ADL's and IADL's. LTG's 12 visits General Yes Cruzito Pulido PT Note: Pt will demonstrate combined right shoulder extension, adduction and IR to T12 or better for dressing behind back. Pt will be Independent and compliant with final HEP. Pt will report R shoulder pain of no more than 2/10 on VAS during use of R UE. Pt will demonstrate R shoulder active elevations of 150 degrees or better for ADL's and IADL's. documented as of this encounter Visit Diagnoses Diagnosis Surgery follow-up- Primary De Quervain's tenosynovitis Radial styloid tenosynovitis Calcific tendonitis of right shoulder documented in this encounter Care Teams Quality Compliance Manager Relationship Specialty Start Date End Date Kasandra Mehta MD [address] [place] [phone] PCP - General 01/23/24 documented as of this encounter
--- OUTSIDE RECORDS SUMMARY | 2025-01-14 12:31 | XMS_ITS | Encounter Summary ---
Author Organization [facility] Address [address] [place] [address] Care Team Providers Care Occupational Therapist Rehab Manager Name Role Phone Kasandra Mehta MD Primary Care Prov ider Reason for Referral * Imaging (Routine) - Closed Specialty Diagnoses / Procedures Referred By Contac t Referred To Contact Radiology Diagnoses Osteoporosis screening Procedures BD Bone Density DXA Axial Skeleton Kasandra Mehta MD Phone: tel: fax: [address] [phone] Phone: tel: Referral ID Status Reason Start Date Expiration Date Visits Re quested Visits Authorized [id number] Closed 09/13/2024 09/13/2025 1 1 Reason for Visit * Imaging (Routine) - Closed Specialty Diagnoses / Procedures Referred By Contac t Referred To Contact Radiology Diagnoses Osteoporosis screening Procedures BD Bone Density DXA Axial Skeleton Kasandra Mehta MD Phone: tel: fax: [address] [phone] Phone: tel: Referral ID Status Reason Start Date Expiration Date Visits Re quested Visits Authorized [id number] Closed 09/13/2024 09/13/2025 1 1 Encounter Details Date Type Department Care Team (Latest Contact Info) Description 12/29/2024 8:14 AM EST - 12/29/2024 11:59 PM EST Hospital Encounter Bone Density [place] [phone] Osteoporosis screening Discharge Disposition: Home or Self Care Social History Tobacco Use Types Packs/Day Years [...] PM EST documented as of this encounter Medications at Time of Discharge albuterol 0.63 mg/3 mL nebulizer solution INHALE 3 ML 4 TIMES A DAY NEEDED FOR SHORTNESS OF BREATH OR WHEEZING 03/14/2024 empagliflozin (Jardiance) 25 mg tablet Take 1 tablet (25 mg total) by mouth daily. esomeprazole (NexIUM) [address] capsule Take 1 capsule (20 mg total) by mouth 1 (one) time each day before breakfast. Do not open capsule. hydrOXYzine pamoate (VISTARIL) 25 mg capsule Take 1 capsule (25 mg total) by mouth. insulin aspart (NovoLOG Flexpen U-100 Insulin) 100 unit/mL (3 mL) injection pen insulin glargine (LANTUS) 100 unit/mL injection Inject under the skin. insulin infusion set-cartridge combo pack melatonin 5 mg tablet TAKE 2 TABLETS BY MOUTH EVERY DAY AT BEDTIME NEEDED 04/11/2024 metFORMIN (GLUCOPHAGE) 1,000 mg tablet Take 1 tablet (1,000 mg total) by mouth. mirtazapine (REMERON) 15 mg tablet Take 1 tablet (15 mg total) by mouth. nitroglycerin (NITROSTAT) 0.[address] 1 tablet (0.4 mg total) under the tongue. oxyCODONE (ROXICODONE) 5 mg immediate release tablet Take 1 tablet (5 mg total) by mouth every 4 (four) hours if needed for severe pain for up to 10 doses. Max Daily Amount: 30 mg 6 each 11/20/2024 semaglutide (Ozempic) 1 mg/dose (4 mg/3 mL) injection pen Inject 1 MG SUBCUTANEOUSLY EVERY 7 DAYS IN THE ABDOMEN, THIGHS OR UPPER ARM. ROTATE INJECTION SITES. 04/14/2024 documented as of this encounter Discharge Disposition Disposition Code Departure Means Destination Home or Self Care documented in this encounter Plan of Treatment Upcoming Encounters Date Type Department Care Team (Late st Contact Info) Description 01/19/2025 12:30 PM EST Treatment Outpatient [address] [phone] Cruzito Pulido, PT 02/02/2025 11:00 AM EDT Office Visit Orthopedic Surgery [address] [phone] Claudio Tafoya MD [address] [address] 04/07/2025 9:30 AM EDT Office Visit Orthopedic Surgery [address] [phone] Gladys Rojas MD [address] [place] [phone] 05/28/2025 8:30 AM EDT Office Visit Adult Medicine [address] [phone] Kasandra Mehta MD [address] [place] [address] documented as of this encounter Goals Goal [...] IADL's. LTG's 12 visits General Yes Cruzito Pulido, PT Note: [...] and IADL's. documented as of this encounter Procedures Procedure Name Priority Date/Time Associated Diagnosis Comments BD BONE DENSITY DXA AXIAL SKELETON Routine 12/29/2024 8:38 AM EST Osteoporosis screening documented in this encounter Results * BD Bone Density DXA Axial Skeleton (12/29/2024 8:38 AM EST) Anatomical Region Laterality Modality Wrist, Hip, L-spine Bone Densito metry 12/29/2024 10:3 3 AM EST Impressions 12/29/2024 10:36 AM EST Impression: Osteopenia by WHO criteria. This patient has a 10% risk of major osteoporotic fracture and a 1.5% risk of hip fracture over the next 10 years. (World Health Organization Fracture Risk Assessment) [facility] Department of Internal Medicine recommends using National Osteoporosis Foundation (NOF) guidelines in treatment decisions related to osteoporosis. NOF guidelines suggest considering treatment for postmenopausal women and men aged 50 or older presenting with the following: History of hip or vertebral fracture. T-score = -2.5 (DXA) at the femoral neck, total hip, or spine, after appropriate evaluation to exclude secondary causes. Low bone mass (T-score between -1.0 and -2.5 at the femoral neck or spine) AND a 10-year probability of a hip fracture = 3% OR a 10-year probability of a major osteoporosis-related fracture = 20% based on the [place]-adapted WHO algorithm Please note that all treatment decisions require clinical judgment and consideration of individual patient factors, including patient preferences, co-morbidities, previous drug use, risk factors not captured in the FRAX model (e.g., frailty, falls, vitamin D deficiency, increased bone turnover, interval significant decline in bone density) and possible under- or over-estimation of fracture risk by FRAX. Optional alternative screening schedule based on lucy Islas., [facility] December 14, 2011 for patients with osteopenia (based on hip BMD T-score) is as follows: * ??advanced osteopenia (T scores -2.00 to -2.49), BMD testing every year * ??moderate osteopenia (T scores -1.50 to -1.99), BMD testing every 5 years mild osteopenia or normal BMD (T scores -1.50 and higher), BMD testing every 15 years -------- FINAL REPORT -------- Dictated By: Ann Marie Toribio Dictated Date: 12/29/2024 10:33 ET Assigned Physician: Ann Marie Toribio Reviewed and Electronically Signed By: Ann Marie Toribio Signed Date: 12/29/2024 10:36 ET Workstation ID: [id number] Transcribed By: Self Edit Transcribed Date: 12/29/2024 10:33 ET Narrative 12/29/2024 10:36 AM EST BONE DENSITY (DEXA) ? Lumbar Spine T-score is -1.2. ?? (SD relative to 20-29 y/o adult) Z-score is 0.7. ??(SD relative to age matched peers) This is considered osteopenia by WHO criteria. Left Hip T-score is -1.9. Z-score is -0.3. This is considered osteopenia by WHO criteria. Comparison exam(s): Not available Procedure Note Ann Marie Toribio MD - 12/29/2024 BONE DENSITY (DEXA) Lumbar Spine T-score is -1.2. (SD relative to 20-29 y/o adult) Z-score is 0.7. (SD relative to age matched peers) This is considered osteopenia by WHO criteria. Left Hip T-score is -1.9. Z-score is -0.3. This is considered osteopenia by WHO criteria. Comparison exam(s): Not available IMPRESSION: Impression: Osteopenia by WHO criteria. This patient has a 10% risk of majorosteoporotic fracture and a 1.5% risk of hip fracture over the next 10years. (World Health Organization Fracture Risk Assessment) [facility] Department of Internal Medicine recommendsusing National Osteoporosis Foundation (NOF) guidelines in treatmentdecisions related to osteoporosis. NOF guidelines suggest consideringtreatment for postmenopausal women and men aged 50 or older presentingwith the following: History of hip or vertebral fracture. T-score = -2.5 (DXA) at the femoral neck, total hip, or spine, afterappropriate evaluation to exclude secondary causes. Low bone mass (T-score between -1.0 and -2.5 at the femoral neck or spine)AND a 10-year probability of a hip fracture = 3% OR a 10-year probabilityof a major osteoporosis-related fracture = 20% based on the [place]-adapted WHOalgorithm Please note that all treatment decisions require clinical judgment andconsideration of individual patient factors, including patientpreferences, co-morbidities, previous drug use, risk factors not capturedin the FRAX model (e.g., frailty, falls, vitamin D deficiency, increasedbone turnover, interval significant decline in bone density) and possibleunder- or over-estimation of fracture risk by FRAX. Optional alternative screening schedule based on lucy Islas., [facility] for patients with osteopenia (based on hip BMD T-score)is as follows: * advanced osteopenia (T scores -2.00 to -2.49), BMD testing every year * moderate osteopenia (T scores -1.50 to -1.99), BMD testing every 5years mild osteopenia or normal BMD (T scores -1.50 and higher), BMD testingevery 15 years -------- FINAL REPORT -------- Dictated By: Ann Marie Toribio Dictated Date: 12/29/2024 10:33 ET Assigned Physician: Ann Marie Toribio Reviewed and Electronically Signed By: Ann Marie Toribio Signed Date: 12/29/2024 10:36 ET Workstation ID: [id number] Transcribed By: Self Edit Transcribed Date: 12/29/2024 10:33 ET Kasandra Mehta MD IMG DXA PROCEDURES Final Result documented in this encounter Visit Diagnoses Diagnosis Osteoporosis screening Special screening for osteoporosis documented in this encounter Care Teams Occupational Therapist Rehab Manager Relationship Specialty Start Date End Date Kasandra Mehta MD [address] [place] [phone] PCP - General 01/23/24 documented as of this encounter
--- OUTSIDE RECORDS SUMMARY | 2025-01-14 12:31 | XMS_ITS | Encounter Summary ---
Author Organization [employer] Address [address] [place] [address] Care Team Providers Care Waiter/Waitress Cafeteria Name Role Phone Kasandra Mehta MD Primary Care Prov ider Reason for Visit * Consultation (Routine) - Authorized Specialty Diagnoses / Procedures Referred By Contac t Referred To Contact Physical Therapy Diagnoses Chronic right shoulder pain Kasandra Mehta MD [address] [place] [address] Phone: tel: fax: Referral ID Status Reason Start Date Expiration Date Visits Requested Visits Authorized [id number] Authorized Specialty Services Required 11/27/2024 11/27/2025 13 13 Encounter Details Date Type Department Care Team ([facility] Contact Info) Description 01/06/2025 8:30 AM EST Treatment Outpatient Rehabilitation [address] [phone] Cruzito Pulido, PT Chronic right shoulder pain (Primary Dx) Social History Tobacco Use Types Packs/Day Years [...] as of this encounter Progress Notes * Cruzito Pulido, PT - 01/06/2025 8:30 AM EST [facility] - Outpatient PHYSICAL THERAPY DAILY TREATMENT NOTE - OP Date: 01/06/2025 Visit Number: 4 Patient Name: Emma Prater : 1955 Age: 69 y.o. Gender: female Diagnosis: ICD-10-CM ICD-9-CM 1. Chronic right shoulder pain M25.511 719.41 G89.29 338.29 Date of Onset/Surgery: 12/15/2020 Referring Provider: Kasandra Mehta* Insurance: Payor: [email or web address] MEDICARE / Plan: [facility] CARE / Product Type: *No Product type* / Patient Identified by: Cruzito Pulido PT Language: French Medications: Current Outpatient Medications on File Prior to Visit Medication Sig Dispense Refill albuterol 0.63 mg/3 mL nebulizer solution INHALE 3 ML 4 TIMES A DAY NEEDED FOR SHORTNESS OF BREATH OR WHEEZING empagliflozin (Jardiance) 25 mg tablet Take 1 [...] BY MOUTH EVERY DAY AT BEDTIME NEEDED metFORMIN (GLUCOPHAGE) 1,000 mg tablet Take 1 [...] Max Daily Amount: 30 mg 6 each 0 semaglutide (Ozempic) 1 mg/dose (4 mg/3 mL) injection pen Inject 1 MG SUBCUTANEOUSLY EVERY 7 DAYS IN THE ABDOMEN, THIGHS OR UPPER ARM. ROTATE INJECTION SITES. No current facility-administered medications on file prior to visit. Allergies: has No Known Allergies. Precautions: Fall risk: No Patient/Caregiver Goals: SUBJECTIVE Subjective Report: Pt reports compliance w/ written HEP. The shoulder still hurts. Pt states she bought pulleys for home use. Chart Reviewed: Yes Pain Right shld=4/10 OBJECTIVE TREATMENT INTERVENTION: UBE x 6 min Standing scap row and shld ext with green tubing x 20 Shld morgan flexion and abd x 15, use of 3 lb weight to un-weight UE (B) ER x 20 with orange tband Wall slide shld flex, 5 reps, hold 10 counts. Passive ROM (R) GH joint mobs, seated inferior glides w/ R UE ext, add and IR. Grades as tolerated w/ gentle AAbtw bouts. Pt supine for A->P glides and distraction at mid range flexion. ASSESSMENT/Response to Treatment Good, pt demonstrated approx 20 degree increase in shoulder elevations after today's treatment although pain remained at 4/10. Patient Education: Education provided: Yes Education Provided To: Patient utilizing Explanation mode(s) of education Response to Education: Verbal Understanding PLAN POC Development/Review: No Change in the Plan of Care; Participants: Patient Total Treatment Time: 30 Man tech Therapeutic procedures: Documentation completed by Cruzito Pulido PT documented in this encounter Plan of Treatment Upcoming Encounters Date Type Department Care Team (Late st Contact Info) Description 01/19/2025 12:30 PM EST Treatment Outpatient Rehabilitation - [address] [phone] Cruzito Pulido, PT 02/02/2025 11:00 AM EDT Office Visit Orthopedic Surgery - [place] [address] [facility] [address] [place] [address] Claudio Tafoya MD 175 [facility] [address] [place] [address] 04/07/2025 9:30 AM EDT Office Visit Orthopedic Surgery - [place] 175 [facility] 140 [place] [phone] Gladys Rojas MD 175 [facility] 140 [place] [phone] 05/28/2025 8:30 AM EDT Office Visit Adult Medicine [facility] [address] [place] [phone] Kasandra Mehta MD [address] [place] [address] documented as of this encounter Goals Goal [...] as of this encounter Visit Diagnoses Diagnosis Chronic right shoulder pain- Primary Pain in joint, shoulder region documented in this encounter Care Teams Waiter/Waitress Cafeteria Relationship Specialty Start Date End Date Kasandra Mehta MD [address] [place] [address] PCP - General 01/23/24 documented as of this encounter
--- OUTSIDE RECORDS SUMMARY | 2025-01-14 12:31 | XMS_ITS | Encounter Summary ---
Author Organization [facility] Address [address] [place] [address] Care Team Providers Care Registration Specialist Name Role Phone Kasandra Mehta MD Primary Care Prov ider Encounter Details Date Type Department Care Team (Latest Contact Info) Description 12/15/2024 Plan of Care Documentation Outpatient Rehabilitation - [address] [phone] Social History Tobacco Use Types Packs/Day Years [...] Progress Notes * Cruzito Pulido, PT - 12/15/2024 1:29 PM EST Images from the original note were not included. [facility] - Outpatient PHYSICAL THERAPY EVALUATION Date: 12/15/2024 Visit Number: 1 Patient Name: Emma Prater : 1955 Age: 68 y.o. Gender: female Diagnosis: ICD-10-CM ICD-9-CM 1. Chronic right shoulder pain M25.511 719.41 Ambulatory referral to Physical Therapy and Athletic Training G89.29 338.29 Date of Onset/Surgery: 12/15/2020 Referring Provider: Kasandra Mehta* Insurance: Payor: [facility] MEDIC[facility] / Plan: [facility] CARE / Product Type: *No Product type* / Patient identified by: Cruzito Pulido PT Language: Over the Phone (audio only) lecturer in computer science service provided for pt. preferred language of Palauan. Operations Accountant #[id number] Chart Reviewed: Yes Medications: Current Outpatient Medications on File Prior [...] facility-administered medications on file prior to visit. Advised Patient to contact MD with any questions regarding medications and importance of managing medication information. has a past medical history of Anxiety, Arthritis, Asthma, Depression, Diabetes mellitus (CMS/HCC), and Joint pain. has a past surgical history that includes Hand surgery (Right); Hand surgery (Left); Other surgicalhistory (01/16/2023); Other surgical history; Appendectomy; Tubal ligation; Spine surgery; Carpal tunnel release; and Cervical laminectomy. has No Known Allergies. Precautions: N/A Previous Medical Care/Therapy: Pt has had PT in the past w/ very little relief. (2-3 years ago). SUBJECTIVE History of Present Illness/Subjective Report: Emma Prater had insidious onset of R shoulder pain approx 4 years ago. Pt is disabled and has never worked and denies previous injuries to R shoulder. Pt reports no x-rays and no new medications. Pt was given PT referral. Home Environment: Resides alone in 7th floor apartment w/ elevators. W/D are on first floor. Pt hasPCA 10 hours/week. Prior Level of Function: Difficult to assess d/t chronic nature of pt's sx's. Current Functional Limitations: Reported by Patient At times has difficulty w/ c architect as I have difficulty lifting my R arm. Pt wakes 2x/night d/t R shoulder pain. Is the patient at Risk for Falls: No Pain: Pain location(s) R shoulder=0/10 at rest. With movement=6/10 on VAS. OBJECTIVE General Observations/Posture/Comments: FHP and rounded shoulders. Increased thoracic kyphosis. Holding R shoulder joint in a protective posture. General/Functional Assessments/Extremity Assessments: UE MMT Right Left Shoulder flexion 4/5 painful 5/5 Shoulder extension 5/5 5/5 Shoulder ABD 4/5 painful 5/5 Shoulder ADD 5/5 5/5 Shoulder ER 4+/5 4/5 painful Shoulder IR 5/5 5/5 L rhomboid=4/5, R=3+/5 and painful. L mid trap= 4/5, R=3+/5 and painful. Low traps N/T as pt does not have ROM needed to test. UE ROM AROM Right AROM Left PROM Right PROM Left Shoulder flexion (0-180) 102 130 w/ ERP WNL WNL Shoulder extension (0-50) WNL 60 WNL WNL Shoulder ABD (0-180) 82 w/ ERP 120 w/ ERP WNL WNL Shoulder ER (0-90) 80 80 WNL WNL Shoulder IR (0-80) WNL WNL WNL WNL Palpation: Pt has no TTP at this time at R GH joint. Reports her pain is more diffuse at this time. R GH joint posterior and inferior glides are hypomobile. Special Tests: Apley's CB L= top of R GH joint, R= anterior L GH joint. Apley's ER L=T2 , R=C6. Apley's IR L= lateral glute, R= lateral glute. No further testing at this time. Discussed R&R for MT and pt agreed. End range distractions w/ oscillations provided pt w/ most sx relief. Pt instructed in seated inferior glides, chin tucks and scap retraction to include demo and trial. Instructions issued in Palauan at pt's request. Discussed procurement of shoulder morgan's for home use, pt agreed to explore options. ASSESSMENT: IE completed this visit. Pt was able to return demonstration of new HEP after instruction. Rehabilitation Potential: Rehab Potential: Condition Has Potential to Improve Emma Prater is a 68 y.o. female presenting for outpatient physical therapy evaluation with complaints of chronic R shoulder pain that she rates to be 6/10 on VAS. Pt demonstrates R active R shoulder ROM deficits, functional movement deficits (Apley's) resulting in functional deficits as pt has limited use of R UE. Pt has no HEP at this time. Patients progress may be limited by chronic nature of sx's. Skilled Physical therapy is medically necessary to reach PT goals, improve ROM, strength, function and pain levels Learning Needs: Were Patient Learning needs assessed: Yes Learning Preferences: Explanation and Operations Accountant Barriers to Learning: Language Patient Education: [x] Discussed, with patient and/or caregiver, the recommended plan of care/goals, the importance oftherapy and appointment compliance in order to achieve goals in a timely manner. GOALS Goals Addressed This Visit's Progress LTG's 12 visits (pt-stated) Pt will demonstrate combined right shoulder extension, adduction and IR to T12 or better for dressing behind back. Pt will be Independent and compliant with final HEP. Pt will report R shoulder pain of no more than 2/10 on VAS during use of R UE. Pt will demonstrate R shoulder active elevations of 150 degrees or better for ADL's and IADL's. STG's 6 visits (pt-stated) Pt will demonstrate combined right shoulder ext, adduction and IR to L4 for dressing behind back. Pt is Independent and compliant with initial HEP. Pt will report R shoulder pain of no more than 4/10 on VAS during use of R UE. Pt will demonstrate R shoulder active elevations of 130 degrees or better for ADL's and IADL's. PLAN POC Development/Review: Initial Evaluation; Participants: Patient Skilled Therapy Plan Required: YES- Reasons for Rehab and Medical Necessity -- Reduce Need for Assist with Functional Activity/ADL's/Mobility Planned Therapy Interventions: Cold Pack, E-Stim -- Unattended, Hot Pack, Kinesiotaping, Manual Therapy, Neuromuscular Re-education, Patient / Family Education, Therapeutic Activity, and Therapeutic Exercise Skilled PT recommended at a freq of 2x/week for 12 visits. Recommended Consults: none Equipment Recommended: none; Equipment Provided: none BILLING TOTAL TREATMENT TIME: 60 Minutes Evaluation High Complexity Justification ::: A history of present problem with 3 or more personal factors and/or co-morbidities that impact the plan of care, An examination of body systems using standardized tests and measures addressing a total of 4 or more elements from any of the following: bodystructures and functions, activity limitations, and/or participation restrictions, and High time effort (typically 45 minutes) spent [id number] with the patient and/or family Documentation completed by Cruzito Pulido PT OUTPATIENT REHABILITATION [address] [address] Dept: [phone] Dept PATIENT NAME: Emma Prater : 1955 Certification: This is to certify that the above named patient, who is under my care, requires skilled Therapy services as described in the above treatment plan. I further certify that the services outlined in this plan are skilled and medically necessary. I have reviewed this plan for rehabilitation services, and I recommend that these services continue to meet the above stated goals and plan. SIGNATURE: DATE Kasandra Mehta* Referring provider documented in this encounter Plan of Treatment Upcoming Encounters Date Type Department Care Team (Late st Contact Info) Description 01/19/2025 12:30 PM EST Treatment Outpatient [address] [phone] Cruzito Pulido, PT 02/02/2025 11:00 AM EDT Office Visit Orthopedic Surgery [facility] [address] [phone] Claudio Tafoya MD [address] [address] 04/07/2025 9:30 AM EDT Office Visit Orthopedic [facility] [address] [phone] Gladys Rojas MD [address] [phone] 05/28/2025 8:30 AM EDT Office Visit Adult Medicine [address] [phone] Kasandra Mehta MD [address] [place] [address] documented as of this encounter Goals Goal [...] documented as of this encounter Visit Diagnoses Not on filedocumented in this encounter Care Teams Registration Specialist Relationship Specialty Start Date End Date Kasandra Mehta MD [address] [place] [address] PCP - General 01/23/24 documented as of this encounter
--- OUTSIDE RECORDS SUMMARY | 2025-01-14 12:31 | XMS_ITS | Encounter Summary ---
Author Organization [employer] Address [address] [place] [address] Care Team Providers Care Sales Representative Electric Service Name Role Phone Kasandra Mehta MD Primary Care Prov ider Reason for Visit * Consultation (Routine) - Authorized Specialty Diagnoses / Procedures Referred By Contac t Referred To Contact Physical Therapy Diagnoses Chronic right shoulder pain Kasandra Mehta MD [address] [place] [address] Phone: tel: fax: Referral ID Status Reason Start Date Expiration Date Visits Requested Visits Authorized [id number] Authorized Specialty Services Required 11/27/2024 11/27/2025 13 13 Encounter Details Date Type Department Care Team (Latest Contact Info) Description 12/15/2024 10:30 AM EST Evaluation Outpatient Rehabilitation [address] [phone] Cruzito Pulido, PT Chronic right shoulder pain [...] Notes * Cruzito Pulido, PT - 12/15/2024 10:30 AM EST Images from the original note were not included. [facility] - Outpatient PHYSICAL THERAPY EVALUATION Date: 12/15/2024 Visit Number: 1 Patient Name: Emma Prater : 1955 Age: 68 y.o. Gender: female Diagnosis: ICD-10-CM ICD-9-CM 1. Chronic right shoulder pain M25.511 719.41 Ambulatory referral to Physical Therapy and Athletic Training G89.29 338.29 Date of Onset/Surgery: 12/15/2020 Referring Provider: Kasandra Mehta* Insurance: Payor: [facility] [employer] [facility] MEDICARE / Plan: [facility] CARE / Product Type: *No Product type* / Patient identified by: Cruzito Pulido PT Language: Over the Phone (audio only) deaf interpreter service provided for pt. preferred language of Maldivian. Games Manager #[id number] Chart Reviewed: Yes Medications: Current Outpatient Medications [...] by Patient At times has difficulty w/ hydraulic press tender as I have difficulty lifting my R [...] include demo and trial. Instructions issued in Maldivian at pt's request. Discussed procurement of shoulder [...] needs assessed: Yes Learning Preferences: Explanation and Games Manager Barriers to Learning: Language Patient Education: [x] [...] degrees or better for ADL's and IADL's. [facility]'s 6 visits (pt-stated) Pt will demonstrate combined [...] High time effort (typically 45 minutes) spent [id number] with the patient and/or family Documentation completed by Cruzito Pulido PT OUTPATIENT REHABILITATION [address] [address] Dept: [phone] Dept PATIENT NAME: Emma Prater : 1955 [...] 12:30 PM EST Treatment Outpatient Rehabilitation - [address] [phone] Cruzito Pulido, PT 02/02/2025 11:00 AM EDT Office Visit Orthopedic Surgery [facility] [address] [phone] Claudio Tafoya MD [address] [address] 04/07/2025 9:30 AM EDT Office Visit Orthopedic Surgery [facility] [address] [phone] Gladys Rojas MD [address] [phone] 05/28/2025 8:30 AM EDT Office Visit Adult Medicine [facility] - [address] [phone] Kasandra Mehta MD [address] [place] [address] documented as of this encounter Goals Goal Patient Goal Type Associated Problems Recent Progress Patient-Stated? Author STG's 6 visits General Yes Cruzito Pulido PT Note: [...] joint, shoulder region documented in this encounter Orders Outpatient Referral Count Last Ordered Date Fir st Ordered Date AMB REFERRAL TO PHYSICAL [facility] 1 12/15/2024 documented in this encounter Care Teams Sales Representative Electric Service Relationship Specialty Start Date End Date Kasandra Mehta MD [address] [place] [address] PCP - General 01/23/24 documented as of this encounter
--- OUTSIDE RECORDS SUMMARY | 2025-01-14 12:31 | XMS_ITS | Encounter Summary ---
Author Organization [employer] Address [address] [place] [address] Care Team Providers Care Hydrogen Operator Name Role Phone Kasandra Mehta MD Primary Care Prov ider Reason for Visit * Consultation (Routine) - Authorized Specialty Diagnoses / Procedures Referred By Contac t Referred To Contact Physical Therapy Diagnoses Chronic right shoulder pain Kasandra Mehta MD [address] [place] [address] Phone: tel: fax: Referral ID Status Reason Start Date Expiration Date Visits Requested Visits Authorized [id number] Authorized Specialty Services Required 11/27/2024 11/27/2025 13 13 Encounter Details Date Type Department Care Team ([facility] Contact Info) Description 01/02/2025 8:00 AM EST Treatment Outpatient Rehabilitation [address] [phone] Morgan Khan, MEDIA TRAFFIC MANAGER Chronic right shoulder pain (Primary Dx) Social [...] as of this encounter Progress Notes * Morgan Khan PTA - 01/02/2025 8:00 AM EST [facility] - Outpatient PHYSICAL THERAPY DAILY TREATMENT NOTE - OP Date: 01/02/2025 Visit Number: 3 Patient Name: Emma Prater : 1955 Age: 69 y.o. Gender: female Diagnosis: ICD-10-CM ICD-9-CM 1. Chronic right shoulder pain M25.511 719.41 G89.29 338.29 Date of Onset/Surgery: 12/15/2020 Referring Provider: Kasandra Mehta* Insurance: [facility]: [facility] MEDIC[facility] / Plan: [facility] CARE / Product Type: *No Product type* / Patient Identified by: Morgan Khan PTA Language: Greenlandic Medications: Current Outpatient Medications on File Prior [...] risk: No Patient/Caregiver Goals: SUBJECTIVE Subjective Report: pt cont with pain in her right shoulder Chart Reviewed: Yes Pain Right shld 5 /10 OBJECTIVE TREATMENT INTERVENTION: UBE x 6 min Standing scap row and shld ext with green tubing x 20 Shld morgan flexion and abd x 15 (B) ER x 20 with orange tband Wall slide shld flex Passive ROM (R) GH joint mobs ASSESSMENT/Response to Treatment Good some discomfort at end range Patient Education: Education provided: Yes Education Provided To: Patient utilizing Explanation mode(s) of education Response to Education: Verbal Understanding PLAN POC Development/Review: No Change in the Plan of Care; Participants: Patient Total Treatment Time: 30 Man tech 8 Therapeutic procedures: 22 Documentation completed by Morgan Khan PTA documented in this encounter Plan of Treatment Upcoming Encounters Date Type Department Care Team (Late st Contact Info) Description 01/19/2025 12:30 PM EST Treatment Outpatient Rehabilitation [address] [phone] Cruzito Pulido, PT 02/02/2025 11:00 AM EDT Office Visit Orthopedic Surgery [facility] [address] [phone] Claudio Tafoya MD 175 [facility] 160 [place] [address] 04/07/2025 9:30 AM EDT Office Visit Orthopedic Surgery [facility] [address] [phone] Gladys Rojas MD 175 [facility] 140 [place] [phone] 05/28/2025 8:30 AM EDT Office Visit Adult Medicine [facility] [address] [place] [address] Kasandra Mehta MD [address] [place] [address] documented as of this encounter Goals Goal [...] region documented in this encounter Care Teams Hydrogen Operator Relationship Specialty Start Date End Date Kasandra Mehta MD [address] [place] [address] PCP - General 01/23/24 documented as of this encounter
--- OUTSIDE RECORDS SUMMARY | 2025-01-14 12:31 | XMS_ITS | Encounter Summary ---
Author Organization [employer] Address [address] [place] [address] Care Team Providers Care Inking Machine Tender Name Role Phone Kasandra Mehta MD Primary Care Prov ider Reason for Visit * Consultation (Routine) - Authorized Specialty Diagnoses / Procedures Referred By Contac t Referred To Contact Physical Therapy Diagnoses Chronic right shoulder pain Kasandra Mehta MD [address] [place] [id number] Phone: tel: fax: Referral ID Status Reason Start Date Expiration Date Visits Requested Visits Authorized [id number] Authorized Specialty Services Required 11/27/2024 11/27/2025 13 13 Encounter Details Date Type Department Care Team ([facility] Contact Info) Description 12/22/2024 8:00 AM EST Treatment Outpatient Rehabilitation [address] [phone] Morgan Khan, RELAY WORKER Chronic right shoulder pain (Primary Dx) Social [...] Progress Notes * Morgan Khan PTA - 12/22/2024 8:00 AM EST [facility] - Outpatient PHYSICAL THERAPY DAILY TREATMENT NOTE - OP Date: 12/22/2024 Visit Number: [id number] Patient Name: Emma Prater : 1955 Age: 69 y.o. Gender: female Diagnosis: ICD-10-CM ICD-9-CM 1. Chronic right shoulder pain M25.511 719.41 G89.29 338.29 Date of Onset/Surgery: 12/15/2020 Referring Provider: Kasandra Mehta* Insurance: [facility] / Plan: [facility] CARE / Product Type: *No Product type* / Patient Identified by: Morgan Khan PTA Language: Cypriot Medications: Current Outpatient Medications on File Prior [...] No Patient/Caregiver Goals: SUBJECTIVE Subjective Report: pt reportw that her right shoulder is painful Chart Reviewed: Yes Pain 4/10 pain OBJECTIVE TREATMENT INTERVENTION: UBE x 6 min Standing scap row and shld ext with green tubing x 20 Shld morgan flexion and abd x 15 (B) ER x 20 with orange tband Passive ROM ; ASSESSMENT/Response to Treatment Fair progress as able Patient Education: Education provided: Yes Education Provided To: Patient utilizing Explanation mode(s) of education Response to Education: Verbal Understanding PLAN POC Development/Review: No Change in the Plan of Care; Participants: Patient Total Treatment Time: 30 Modalities: Therapeutic procedures: Documentation completed by Morgan Khan PTA documented in this encounter Plan of Treatment Upcoming Encounters Date Type Department Care Team (Late st Contact Info) Description 01/19/2025 12:30 PM EST Treatment Outpatient Rehabilitation [address] [phone] Cruzito Pulido, PT 02/02/2025 11:00 AM EDT Office Visit Orthopedic Surgery [facility] [address] [phone] Claudio Tafoya MD [address] [address] 04/07/2025 9:30 AM EDT Office Visit Orthopedic Surgery [facility] [address] [phone] Gladys Rojas MD [address] [phone] 05/28/2025 8:30 AM EDT Office Visit Adult Medicine [facility] [address] [place] [address] Kasandra Mehta MD [address] [place] [address] documented as of this encounter Goals Goal [...] region documented in this encounter Care Teams Inking Machine Tender Relationship Specialty Start Date End Date Kasandra Mehta MD [address] [place] [address] PCP - General 01/23/24 documented as of this encounter
--- OUTSIDE RECORDS SUMMARY | 2025-01-14 12:32 | XMS_ITS | Data Portability ---
Author Organization [facility] [place] [facility] Address [address] [place] [phone] Care Team Providers Care Therapeutic Recreation Specialist Name Role Phone HIM CCA Referring Provider Assessment Encounter Date Assessment Date Assessment LastModified by Organization Details LastModified Time 03/10/2024 03/10/2024 I provided real -time medical direction via phone for this encounter, and was available for additional phone based assistance as needed. I have reviewed and agree with the Assessment and Plan as documented by the Audio Visual Tech. We discussed the diagnostic uncertainty of home visits and the risk associated with this. In this case the patient and I felt this to be an acceptable and reasonable amount of risk given the benefit of avoiding an ED visit. The patient given the opportunity to ask questions. Advised if develops worsening CP/severe SOB/turning blue/uncontrolle d n/v/d or black/bloody emesis or stool/ AMS/ syncope/ hi fever unresponsive to APAP to call 911- verbalized understanding of instruction [email or web address] Not available 03/10/2024 11:57:00 Plan of Treatment Reminders Order Date Submit Date Provider Last Modified By Organization Details Last Modified Time Details Appointments None recorded. Lab BMP, serum or plasma 2023 024 [email or web address] 0 [facility], [address] [place] [address], [phone], 4 12:01:00 rapid flu (A+B) 2023 024 [email or web address], [phone], 4 11:56:35 rapid SARS CoV 2 Ag, QL IA, respiratory specimen 2023 024 [email or web address], [address] [place] [address], 11:56:33 Referral None recorded. Procedures None recorded. Surgeries None recorded. Imaging None recorded. Medication Orders ketorolac 30 mg/mL injection solution 2023 024 [email or web address] 0 Not available 12:01:00 Patient TargetsNo targets recorded. Patient InstructionsNo instructions recorded. Reason for Referral None Reported. Results Created Date Observation Date Name Description Value Unit Range Abnormal Flag Note LastModifiedBy Organization Detail LastModifiedTime 03/10/20 24 03/10/2024 BMP, serum or plasm a BUN 15 Not Available Main - Ins [address], [address] [place] [address], 03/10/2024 11:59:38 03/10/20 24 03/10/2024 BMP, serum or plasm a Ca Ionize d calciu m 1.17 Not Available Main - [address], [address] [place] [address], 03/10/2024 11:59:38 03/10/20 24 03/10/2024 BMP, serum or plasm a CI- 108 Not Available Main - Ins [address], [address] [place] [address], 03/10/2024 11:59:38 03/10/20 24 03/10/2024 BMP, serum or plasm a CRE 0.6 Not Available Main - Ins [address], [address] [place] [address], 03/10/2024 11:59:38 03/10/20 24 03/10/2024 BMP, serum or plasm a GLU 198 Not Available Main - Ins [address], [address], 03/10/2024 11:59:38 03/10/20 24 03/10/2024 BMP, serum or plasm a K+ 3.9 Not Available Main - Ins [address], [address], 03/10/2024 11:59:38 03/10/20 24 03/10/2024 BMP, serum or plasm a Na+ 141 Not Available Main - Ins bhumika [address] [place] [address], [phone], 03/10/2024 11:59:38 03/10/20 24 03/10/2024 BMP, serum or plasm a tCO2 19 Not Available Main - Ins bhumika [address] [place] [address], [phone], 03/10/2024 11:59:38 03/10/20 24 03/10/2024 rapid SARS CoV 2 Ag, QL IA, respi rator y speci men rapid SARS CoV 2 Ag, QL IA, respiratory specimen negati ve Not Available Main - Inst ed [address] [place] [address], [phone], 03/10/2024 11:31:16 03/10/20 24 03/10/2024 rapid flu (A+B) Flu negati ve Not Available Main - Inst ed [address] [place] [address], [phone], 03/10/2024 11:31:14 Result Notes None recorded. Medical Equipment None Reported. Medications Name Sig Start Date Stop Date Status Note LastModified by Organization Details LastModified Time comfrt touch pad alc prep active Not Available Not Available Not Available cyclobenzapr ine 10 mg tablet TAKE 1 TABLET BY MOUTH AT BEDTIME active Not Available Not Available No t Available metformin 500 mg tablet TAKE 1 TABLET BY MOUTH TWICE DAILY active Not Available Not Available No t Available atorvastatin 80 mg tablet active Not Available Not Available Not Available cephalexin 250 mg capsule TOME 1 C PSULA POR V A ORAL CUATRO VECES AL D A POR 5 D active Not Available Not Available No t Available meloxicam 15 mg tablet TAKE 1 TABLET BY MOUTH ONCE DAILY active Not Available Not Available No t Available sulfamethoxa zole 800 mg-trimethop rim 160 mg tablet active Not Available Not Available Not Available aspirin 81 mg tablet,delay ed release active Not Available Not Available N ot Available acetaminophe n 500 mg tablet TOME GREER TABLETA POR V A ORAL CADA SEIS HORAS CUANDO SEA NECESARIO PARA EL DOLOR active Not Available Not Available No t Available ketorolac 0.5 % eye drops PLACE 1 DROP IN THE AFFECTED EYE THREE TIMES DAILY DIRECTED. START 2 DAYS BEFORE SURGERY AND TAPER DOWN DIRECTED active Not Available Not Available Not Available trazodone 100 mg tablet TAKE 2 TABLETS BY MOUTH DAILY AT BEDTIME NEEDED active Not Available Not Available No t Available benzonatate 100 mg capsule TAKE 1 CAPSULE BY MOUTH 3 TIMES A DAY NEEDED FOR COUGH active Not Available Not Available No t Available ibuprofen 400 mg tablet active Not Available Not Available Not Available omeprazole 20 mg capsule,viola yed release TOME 1 C PSULA POR V A ORAL TODOS LOS D FOR 90 DAYS active Not Available Not Available No t Available mirtazapine 15 mg tablet TAKE 1 TABLET BY MOUTH AT BEDTIME active Not Available Not Available No t Available gabapentin 100 mg capsule TAKE 1 CAPSULE BY MOUTH TWICE DAILY active Not Available Not Available No t Available albuterol sulfate HFA 90 mcg/actuatio n aerosol inhaler TOME DOS INHALACIONE S POR V A ORAL CADA CUATRO A SEIS HORAS CUANDO SEA NECESARIO active Not Available Not Available No t Available oxycodone 5 mg tablet TOME GREER TABLETA CADA SEIS HORAS CUANDO SEA NECESARIO PARA EL DOLOR active Not Available Not Available No t Available hydroxyzine pamoate 25 mg capsule TAKE 1 CAPSULE BY MOUTH AT BEDTIME NEEDED FOR ANXIETY / for SLEEP active Not Available Not Available No t Available Novolog FlexPen U-100 Insulin aspart 100 unit/mL (3 mL) subcutaneous active Not Available Not Available Not Available cyclobenzapr ine 5 mg tablet TOME GREER TABLETA POR V A ORAL MADELINE VECES AL D A PARA EL ESPASMO MUSCULAR CUANDO SEA NECESARIO active Not Available Not Available No t Available mirtazapine 7.5 mg tablet TAKE 1 TABLET BY MOUTH EVERY DAY AT BEDTIME active Not Available Not Available No t Available melatonin 5 mg tablet TAKE 2 TABLETS BY MOUTH EVERY DAY AT BEDTIME NEEDED active Not Available Not Available No t Available ketorolac 30 mg/mL injection solution Inject 30 mg. 2023 active Not Available Not Available Not Avai lable Comfort EZ Pen [place] 33 gauge x 5/32 active Not Available Not Available Not Available Jardiance 25 mg tablet TAKE 1 TABLET BY MOUTH EVERY DAY active Not Available Not Available No t Available Trulicity 1.5 mg/0.5 mL subcutaneous pen injector INJECT ONE PEN (=1.5MG) SUBCUTANEOU SLY ONCE A WEEK DIRECTED active Not Available Not Available No t Available Pentips Pen Needle 32 gauge x USE DIRECTED active Not Available Not Available No t Available FreeStyle Lisa 2 Sensor kit USE DIRECTED. CHANGE EVERY 2 WEEKS. active Not Available Not Available No t Available Ozempic 0.25 mg or 0.5 mg (2 mg/3 mL) subcutaneous pen injector INJECT 0.5mg SUBCUTANEOU SLY ONCE A WEEK active Not Available Not Available No t Available Vitals Date Recorded Heart rate Oxygen saturation Oxygen saturation in Arterial blood by Pulse oximetry Body height Body temperature Body weight Respiratory rate Systolic blood pressure Diastolic blood pressure Provider Name and Address Organization Details Last Updated DateTime 4 90 /min 99 % 99 % 160.02 cm 98 [degF] 43594.7 2 g 18 /min 149 mm[Hg] 84 mm[Hg] Not Available [facility] - production 4 11:29:43 Social History None recorded. Functional Status None recorded. Mental Status None recorded. Family History Nothing Reported. Medical History No medical history recorded. Gynecological HistoryNo gynecological history recorded. Obstetrics History GPAL:G 0 P 0 0 0 0 Past Encounters Encounter ID Performer Location Encounter Start Date Encounter Closed Date Diagnosis/Indication Diagnosis SNOMED-CT Code Diagnosis ICD10 Code Diagnosis Note [id number] Liana Morris MD [facility] - [facility] [address] [place] [phone] 03/10/2024 11:29:39 03/10/2024 19:14:16 Influenza 7658304 J11.1 resolving other than persistent cough-want to avoid steroids due to the diabetes and hyperglyce miaAfter medic instructed how to use MDI she felt better/les s cough. Advised I will prescribe a spacer to allow more medicine to get into her lungs. Reassuring no clinical signs of pneumonia at this time: is afebrile with LD APAP 650 last night-advi sed if she develops colored sputum or fever she should be rechecked at once. For more severe symptoms Red flags reviewed with patient Rib pain [id number] R07.8 1 From cough, no crepitance to suggest fracture. PC team: If pain persists would benefit from CXR and rib films outpatient Checked BMP(prior to ketorolac since have no recent labs) and other than mild hyperglyce jasiel was normal-off ered ketorolac and accepted. Advised may take Tylenol 500-6 50 mg x4 times a day, so 3 times in addition to her nightly Nyquil dose Health Concerns Section Related Observation LastModified by Organization Detai ls LastModified Time None Recorded Concern Status LastModified by Organization Details LastModified Time None Recorded Advance Directives Directive None Recorded Payers Encounter Date Sequence Insurance Name Policy Number Policy Bates Covered Member ID Bates Member ID Guarantor Name 03/10/2024 1 [facility] - DOS ON OR AFTER 2023 - DUAL ELIGIBLE - [employer] AND ONE [employer] (MEDICARE REPLACEMENT/ADV ANTAGE - HMO) Emma Prater [id number] Emma Prater Notes Date Note Type Note Provider Name and Address Organization Details Recorded Time 03/10/2024 text/html HPI: Member is 68 yo Ethiopian speaking female, who was treated at [facility] on 03/06/24 for Flu and reports persistent cough and worsening ribs pains, making it hard to breath. Using albuterol inhaler and Benzonatate caps with little effect. Member reported is afraid of getting PNA, and reported fevers and chills resolved. Hx of DM2 with Polineuropathy, HLP, OA, Depression, Anxiety, PTSD, TRISTON, Spinal stenosis. .................. .................. .................. .................. .................. .................. .................. ............... [facility] Nurse Triage Notes (Karoline Olivares): Comments: HPI reviewed. .................. .................. .................. .................. .................. .................. .................. ............... Audio Visual Tech Note From Reji Schaefer: [facility]. Pt presents conscious and alert. r d intern utilized via phone. Pt states she was seen in ED 4 days ago and diagnosed with flu and prescribed albuterol inhaler and benzonatate. Pt has had persistent cough since despite taking meds and is also having rib pain. Pain localized to bottom 2 ribs anterior right side, a little tender on palpation. Pt notes slight difficulty taking full breath. V/S taken and WNL. Pt afebrile. Lung sounds clear. Consulted with [facility] who ordered covid and flu swabs, completed and both negative. [facility] ordered basic metabolic panel drawn and completed and sent for review after which 30 mg IM toradol given. Reviewed red flags for ED with patient. inhaler spacer prescribed for patient as well. Instructions given for taking her home supply of tylenol as well. .................. .................. .................. .................. .................. .................. .................. ............... Disposition: FulfilledSEGMD: As above. Patient reports her blood sugars were running in the 400s last week. They have come down. Currently via her M her blood sugar was 230. Her cough is dry and she has had no fever or chills. She is taking NyQuil at at bedtime only which is 650 mg of APAP other than that she has not taken any antipyretics for pain medication. She has no history of asthma or COPD. This is the first time she has used an MDI and she was given it without spacer. Medic instructed how to use MDI properly Liana Morris MD [address] [place] [address],[address], [place], [phone], [employer] - [employer] 03/10/2024 14:04:41 OBGyn Episode No OBEpisode recorded.
--- OUTSIDE RECORDS SUMMARY | 2025-01-14 12:32 | XMS_ITS | Clinical Summary ---
Author Organization 175 [facility] Address [address] [place] [address] Phone Care Team Providers Care Acid Purification Equipment Operator Name Role Phone Kasandra Mehta MD Primary Care Prov ider Allergies No known active allergies Medications insulin infusion set-cartridge combo pack Active melatonin 5 mg tablet TAKE 2 TABLETS BY MOUTH EVERY DAY AT BEDTIME NEEDED 4 Active metFORMIN (GLUCOPHAGE) 1,000 mg tablet Take 1 tablet (1,000 mg total) by mouth. Active mirtazapine (REMERON) 15 mg tablet Take 1 tablet (15 mg total) by mouth. Active nitroglycerin (NITROSTAT) 0.[address] 1 tablet (0.4 mg total) under the tongue. Active semaglutide (Ozempic) 1 mg/dose (4 mg/3 mL) injection pen Inject 1 MG SUBCUTANEOUSLY EVERY 7 DAYS IN THE ABDOMEN, THIGHS OR UPPER ARM. ROTATE INJECTION SITES. 4 Active insulin aspart (NovoLOG Flexpen U-100 Insulin) 100 unit/mL (3 mL) injection pen Active insulin glargine (LANTUS) 100 unit/mL injection Inject under the skin. Active hydrOXYzine pamoate (VISTARIL) 25 mg capsule Take 1 capsule (25 mg total) by mouth. Active empagliflozin (Jardiance) 25 mg tablet Take 1 tablet (25 mg total) by mouth daily. Active albuterol 0.63 mg/3 mL nebulizer solution INHALE 3 ML 4 TIMES A DAY NEEDED FOR SHORTNESS OF BREATH OR WHEEZING 04/19/202 4 Active esomeprazole (NexIUM) [address] capsule Take 1 capsule (20 mg total) by mouth 1 (one) time each day before breakfast. Do not open capsule. Active oxyCODONE (ROXICODONE) 5 mg immediate release tablet Take 1 tablet (5 mg total) by mouth every 4 (four) hours if needed for severe pain for up to 10 doses. Max Daily Amount: 30 mg 6 each 4 Active Active Problems Problem Noted Date Diagnosed Date Calcific tendonitis of right shoulder 01/09/2025 Surgery follow-up 01/09/2025 Diabetes mellitus due to und erlying condition with hyperosmolarity without coma, without long-term current use of insulin 07/25/2024 Assessment & Plan (11/27/2024 11:44 AM EST): poor control of diabetes. Patient will continue with yearly Podiatric and Ophthomologic evaluations.Will consider Angiotensin Converting Enzyme Inhibitor for renal protection. Continue Ozempic, lispro, glargine, Jardiance, and metformin. Encouraged to keep the appointments with the specialist. Patient had some blood tests with her compliance engineer products. A1c: 7.4 De Quervain's tenosynovitis 07/25/2024 Postoperative wound infection 07/17/2023 Cervical cord compression with myelopathy 2022 Overview (09/14/2024): Last Assessment & Plan: Ms. Prater returns for her 1 year follow-up after C3-4 ACDF with plating on 01/16/2023. She is quite pleased that after surgery, the cramping in her calves and feet resolved. Unfortunately, some of this has returned in the last several weeks but not as severe as before and it does not affect her walking. She denies any numbness or tingling in her hands and she has no trouble swallowing. Twice in the past week she is experienced some neck pressure anteriorly and posteriorly that was self-limited. This was not associated with sharp shooting pain or weakness. On exam, her incision is well-healed, cervical rotation is at least 60 degrees bilaterally, strength is 5/5 throughout, sensation to light touch intact, gait is steady with no assistive device. Review of the AP/lateral and flexion/extension x-rays from today show solid arthrodesis across C3-4 with an intact plate and screws. There is no instability at any level. Ms. Prater did have improvement in her myelopathic symptoms and has no issues swallowing. It is possible some of the sensations in her toes and calves are due to neuropathy. Is no new or worrisome finding on exam or on her x-rays to pursue further imaging. She is welcome to see us again in the future if something changes. Left carpal tunnel syndrome 02/28/2022 Trigger finger, right ring finger 12/13/2021 Encounters Date Type Department Care Team Description 01/12/2025 8:30 AM EST Treatment Outpatient Rehabilitation - [address] [phone] Morgan Khan PTA Chronic right shoulder pain (Primary Dx) 01/09/2025 8:15 AM EST Office Visit Orthopedic Surgery - [address] [place] [phone] Gladys Rojas MD Surgery follow-up (Primary Dx); De Quervain's tenosynovitis; Calcific tendonitis of right shoulder 01/06/2025 8:30 AM EST Treatment Outpatient Rehabilitation - [address] [phone] Cruzito Pulido, PT Chronic right shoulder pain (Primary Dx) 01/02/2025 8:00 AM EST Treatment Outpatient Rehabilitation - [address] [phone] Morgan Khan PTA Chronic right shoulder pain (Primary Dx) 12/29/2024 8:14 AM EST - 12/29/2024 11:59 PM EST Hospital Encounter Bone Density - [address] [phone] Osteoporosis screening Discharge Disposition: Home or Self Care 12/22/2024 8:00 AM EST Treatment Outpatient Rehabilitation - [address] [phone] Morgan Khan PTA Chronic right shoulder pain (Primary Dx) 12/15/2024 10:30 AM EST Evaluation Outpatient Rehabilitation - [address] [phone] Cruzito Pulido PT Chronic right shoulder pain (Primary Dx) 12/15/2024 Plan of Care Documentation Outpatient Rehabilitation - [address] [phone] 12/02/2024 10:00 AM EST Office Visit Orthopedic Surgery [address] [phone] Bela Manzanares PA Surgery follow-up (Primary Dx) 11/27/2024 11:15 AM EST Office Visit Adult Medicine [facility] - [address] [phone] Kasandra Wood MD Diabetes mellitus due to underlying condition with hyperosmolarity without coma, without long-term current use of insulin ([facility]) (Primary Dx); Anxiety; Chronic right shoulder pain 11/20/2024 8:45 AM EST - 11/20/2024 10:15 AM EST Surgery [facility] [place] [address] [place] [address] [phone] Gladys Rojas MD FIRST DORSAL COMPARTMENT RELEASE/DEQUERVAINS LEFT [[id number] (CPT??)] 11/20/2024 8:45 AM EST Anesthesia Event [facility] OR [address] [place] [phone] Ishaan Stoddard DO 11/20/2024 7:23 AM EST - 11/20/2024 10:35 AM EST Hospital Encounter [facility] OR [address] [place] [address] [phone] Gladys Rojas MD Discharge Disposition: Home or Self Care 11/11/2024 10:15 AM EST Consult Orthopedic Surgery - [address] [phone] Gladys Rojas MD Radial styloid tenosynovitis (Primary Dx) 10/28/2024 Telephone Orthopedic Surgery - [place] [address] [place] [address] [place] [phone] Gladys Rojas MD from Last 3 Months Immunizations Name Administration Dates Next Due Td Tetanus diptheria, preser vative free (Tenivac) 7yo and older 06/25/2017,02/13/2014 Zoster recombinant (Shingrix) 19yo and older ,07/24/2023 Surgical History Surgery Date Site/Laterality Comments HAND SURGERY Right PROCEDURE: HISTORICAL HAND SURGERY; COMMENT: Carpal tunnel release x2, 1st dorsal compartment release, trigger thumb & index finger release HAND SURGERY Left PROCEDURE: HISTORICAL HAND SURGERY; COMMENT: Carpal tunnel release x3, long & ring trigger finger release OTHER SURGICAL HISTORY 01/16/2023 PROCEDURE: NV ARTHRD ANT INTERDY CERVCL BELW C2 EA ADDL NTRSPC; COMMENT: C3-4 ACDF, Dr. Mckeon OTHER SURGICAL HISTORY PROCEDURE: HISTORY OTHER; COMMENT: Bladder left APPENDECTOMY PROCEDURE: HISTORICAL APPENDECTOMY TUBAL LIGATION PROCEDURE: HISTORICAL TUBAL LIGATION SPINE SURGERY CARPAL TUNNEL RELEASE CERVICAL LAMINECTOMY Medical History Medical History Date Comments Asthma DX:Asthma Diabetes mellitus (CMS/HCC) DX:D iabetes mellitus (HCC) Depression DX:Depression Anxiety DX:Anxiety Arthritis DX:Arthritis Joint pain Family History Medical History Relation Name Comments Liver cancer Brother Dementia Father Lung cancer Mother Relation Name Status Comments Brother Father Mother Social History Tobacco Use Types Packs/Day Years Used Date Smoking Tobacco: Former Cigarettes Q uit: 11/26/1999 Smokeless Tobacco: Never Tobacco Cessation:Counseling Given: Not Answered Alcohol Use Standard Drinks/Week Comments No 0 (1 standard drink = 0.6 oz pur e alcohol) Comments No Sex and Gender Information Value Date Recorded Sex Assigned at Female 11/10/2024 2:35 PM EST Legal Sex Female 5:43 AM EST Gender Identity Female 11/10/2024 2:35 PM EST Sexual Orientation Straight 11/10/2024 2: 35 PM EST Obstetrics History Last Filed Vital Signs Vital Sign Reading Time Taken Comments Blood Pressure 116/70 11/27/2024 11:18 AM EST Pulse 88 11/27/2024 11:18 AM EST Temperature 36.3 ??C (97.3 ??F) 11/27/2024 11:[address] Respiratory Rate 12 11/27/2024 11:18 AM EST Oxygen Saturation 92% 11/20/2024 10:01 AM EST Inhaled Oxygen Concentration - - Weight 72.1 kg (159 lb) 11/27/2024 11:18 AM EST Height 160 cm (5' 3 ) 11/11/2024 9:55 AM EST Body Mass Index 28.17 11/11/2024 9:55 AM EST Plan of Treatment Upcoming Encounters Date Type Department Care Team (Late st Contact Info) Description 01/19/2025 12:30 PM EST Treatment Outpatient Rehabilitation - [address] [phone] Cruzito Pulido, PT 02/02/2025 11:00 AM EDT Office Visit Orthopedic Surgery [facility] [address] [phone] Claudio Tafoya MD [address] [address] 04/07/2025 9:30 AM EDT Office Visit Orthopedic [facility] [address] [phone] Gladys Rojas MD [address] [phone] 05/28/2025 8:30 AM EDT Office Visit Adult Medicine [address] [phone] Kasandra Mehta MD [address] [place] [phone] Health Maintenance Due Date Last Done Comments Breast Cancer Screening 1955 Pneumococcal Vaccine: 50+ Years (1 of 2 - PCV) 1976 RSV Immunization Patients 60 + Years Old (1 - Risk 60-74 years 1-dose series) 2017 Cholesterol Screening (Lipid Panel) 11/05/2022 Colorectal Cancer Screening: Colonoscopy 11/05/2022 Hepatitis C Screening 11/05/2022 Medicare Annual Wellness Visit 11/05/2022 Social Influencers of Health Screening 11/05/2022 COVID-19 Vaccine (2023-2 5 season) 2024 11/10/2021, 03/08/2021, 02/08/2021 Diabetes: Annual Urine Albumin-Creatinine Ratio (uACR) 09/04/2024 Diabetes: Blood Sugar Contro l Test (HGBA1C) 01/23/2025 07/25/2024 Diabetes: Annual Retina Eye Exam 02/12/2025 02/13/2024 Diabetes: Annual GFR (Glomerular Filtration Rate) 07/25/2025 07/25/2024 Depression Screening 08/15/2025 08/15/2024 Diabetes: Annual Foot Exam 08/15/2025 08/15/2024 Falls Risk Assessment 08/15/2025 08/15/2024 DTaP,Tdap,and Td Vaccines (3 - Td or Tdap) 06/25/2027 06/25/2017, 02/13/2014 Osteoporosis Screening (Bone Density Screening) 12/29/2034 12/29/2024 Zoster Vaccines Completed 09/25/2023, 07/24/2023 HIB Vaccines Aged Out No longer eligi ble based on patient's age to complete this topic HPV Vaccines Aged Out No longer eligi ble based on patient's age to complete this topic Hepatitis A Vaccines Aged Out No long er eligible based on patient's age to complete this topic Hepatitis B Vaccines Aged Out No long er eligible based on patient's age to complete this topic IPV Vaccines Aged Out No longer eligi ble based on patient's age to complete this topic Influenza Vaccine Discontinued MMR Vaccines Aged Out No longer eligi ble based on patient's age to complete this topic Meningococcal ACWY Vaccine Aged Out N o longer eligible based on patient's age to complete this topic Meningococcal B Vacine Aged Out No lo nger eligible based on patient's age to complete this topic RSV Immunization Patients Under 20 months Aged Out No longer eligible based on patient's age to complete this topic Varicella Vaccines Aged Out No longer eligible based on patient's age to complete this topic Goals Goal Patient Goal Type Associated Problems [...] degrees or better for ADL's and IADL's. Procedures Procedure Name Priority Date/Time Associated Diagnosis Comments XR SHOULDER 2+ VIEWS RIGHT Routine 01/09/2025 8:23 AM EST Pain BD BONE DENSITY DXA AXIAL SKELETON Routine 12/29/2024 8:38 AM EST Osteoporosis screening US ABDOMEN COMPLETE Routine 12/18/2024 3 :12 PM EST NV INCISION EXTENSOR TENDON SHEATH WRIST 11/20/2024 8:51 AM EST Radial styloid tenosynovitis (de quervain) PROCEDURAL ECG Routine 11/20/2024 8:40 AM EST POCT GLUCOSE BLOOD Routine 11/20/2024 7: 45 AM EST from Last 3 Months Results * XR Shoulder 2+ Views Right (01/09/2025 8:23 AM EST) Anatomical Region Laterality Modality Upper Extremities, Shoulder Right Comp uted Radiography Narrative 01/09/2025 8:46 AM EST AP, true AP, axillary, scapular Y view of the right shoulder was obtained on 01/09/2025. ??There are no prior images available for comparison. ?? Patient is notably osteopenic throughout. ??What is most notable on the AP view is that the patient has a calcific mass in the subacromial space consistent with calcific tendinitis. ??Glenohumeral joint is well-maintained. ??There is no evidence of any subchondral cysts, joint space narrowing, or osteophyte formation. ??There are no fractures or concerning lytic lesions. Impression: Evidence of calcific tendinitis right subacromial space Gladys Rojas MD IMG XR PROCEDURES Final Resul t * BD Bone Density DXA Axial Skeleton [...] (World Health Organization Fracture Risk Assessment) [facility] Department of Internal Medicine recommends using National [...] alternative screening schedule based on lucy Islas., [facility] [place] December 14, 2011 for patients with osteopenia [...] Signed Date: 12/29/2024 10:36 ET Workstation ID: [id number] Transcribed By: Self Edit Transcribed Date: 12/29/2024 [...] (World Health Organization Fracture Risk Assessment) [facility] Department of Internal Medicine recommendsusing National Osteoporosis [...] alternative screening schedule based on lucy Islas., [place] for patients with osteopenia (based on [...] Signed Date: 12/29/2024 10:36 ET Workstation ID: [id number] Transcribed By: Self Edit Transcribed Date: 12/29/2024 10:33 ET us Kasandra Mehta MD IMG DXA PROCEDURES Final Result * US Abdomen Complete (12/18/2024 3:12 PM EST) Anatomical Region Laterality Modality Body Ultrasound Historical Provider MD URIOSTEGUI US PROCEDURES Final R esult * ECG 12 lead - Procedural (No Charge) (11/20/2024 8:40 AM EST) Ventricular Rate ECG 91 BPM GEMUSE Atrial Rate 91 BPM GEMUSE P-R Interval 170 ms GEMUSE QRS Duration 90 ms GEMUSE Q-T Interval 372 ms GEMUSE QTc 457 ms GEMUSE P Wave Kevin 51 degrees GEMUSE R Kevin 43 degrees GEMUSE T Kevin 57 degrees GEMUSE ECG Interpretation Normal sinus rhythm Normal ECG When compared with ECG of 16-JAN-2023 11:21, No significant change was found Confirmed by JAVON ECHEVARRIA ([id number]) on 11/22/2024 10:38:44 AM GEMUSE 11/20/2024 8:40 AM EST 11/22/2024 10:38 AM EST Ishaan Stoddard DO ECG ORDERABLES Final Result GEMUSE * (ABNORMAL) POCT Glucose, blood (11/20/2024 7:45 AM EST) Pathologist [facility] Glucose POCT 164(H) 70 - 100 mg/dL 11/20/2024 7:46 AM EST [facility] Blood Capillary blood specimen / Unknown 11/20/2024 7:45 AM EST 11/20/2024 7:47 AM EST Gladys Rojas MD LAB POINT OF CARE TE ST DOCKED DEVICE UNSOLICITED RESULTS Final Result [facility] [address] [place] [address], [place] [phone] from Last 3 Months Insurance [facility] MEDIC[facility] Member Subscriber Plan / Payer (Ef fective 2022-Present) Name:Emma Prater Relation to Subscriber:Self Name:Emma Prater Payer ID:[id number] Group ID:[id number] Type:Not on file Address: [place] [address] [address] [address] Care Teams Acid Purification Equipment Operator Relationship Specialty Start Date End Date Kasandra Mehta MD [address] [place] [address] PCP - General 01/23/24
--- OUTSIDE RECORDS SUMMARY | 2025-01-14 12:32 | XMS_ITS | Encounter Summary ---
Author Organization [email or web address] Address [address] [place] [address] Care Team Providers Care Water Treatment Specialist Name Role Phone Kasandra Mehta MD Primary Care Prov ider Reason for Visit * Consultation (Routine) - Authorized Specialty Diagnoses / Procedures Referred By Contac t Referred To Contact Physical Therapy Diagnoses Chronic right shoulder pain Kasandra Mehta MD [address] [place] [address] Phone: tel: fax: Referral ID Status Reason Start Date Expiration Date Visits Requested Visits Authorized [id number] Authorized Specialty Services Required 11/27/2024 11/27/2025 13 13 Encounter Details Date Type Department Care Team ([facility] Contact Info) Description 01/12/2025 8:30 AM EST Treatment Outpatient Rehabilitation [address] [phone] Morgan Khan, PHOTOGRAPHER STILL Chronic right shoulder pain (Primary Dx) Social [...] Progress Notes * Morgan Khan PTA - 01/12/2025 8:30 AM EST [facility] - Outpatient PHYSICAL THERAPY DAILY TREATMENT NOTE - OP Date: 01/12/2025 Visit Number: [id number] Patient Name: Emma Prater : 1955 Age: 69 y.o. Gender: female Diagnosis: ICD-10-CM ICD-9-CM 1. Chronic right shoulder pain M25.511 719.41 G89.29 338.29 Date of Onset/Surgery: 12/15/2020 Referring Provider: Kasandra Mehta* Insurance: [facility] / Plan: [facility] CARE / Product Type: *No Product type* / Patient Identified by: Morgan Khan PTA Language: Turkmen Medications: Current Outpatient Medications on File Prior [...] Goals: SUBJECTIVE Subjective Report: pt cont with right shoulder pain Chart Reviewed: Yes Pain Right shoulder 5/10 OBJECTIVE TREATMENT INTERVENTION: UBE x 6 min Standing scap row and shld ext with green tubing x 20 Shld morgan flexion and abd x 15, use of 3 lb weight to un-weight UE (B) ER x 20 with orange tband Wall slide shld flex, 5 reps, hold 10 counts. Passive ROM Below manual tech not done today (R) GH joint mobs, seated inferior glides w/ R UE ext, add and IR. Grades as tolerated w/ gentle AAbtw bouts. Pt supine for A->P glides and distraction at mid range flexion. US to (R) shoulder x 8 min ASSESSMENT/Response to Treatment Good trial of US as discussed with primary PT and note from MD..add to HEP next visit Patient Education: Education provided: Yes Education Provided To: Patient utilizing Explanation mode(s) of education Response to Education: Verbal Understanding PLAN POC Development/Review: No Change in the Plan of Care; Participants: Patient Total Treatment Time: 30 Modalities: 10 Therapeutic procedures: 20 Documentation completed by Morgan Khan PTA documented in this encounter Plan of Treatment Upcoming Encounters Date Type Department Care Team (Late st Contact Info) Description 01/19/2025 12:30 PM EST Treatment Outpatient Rehabilitation [address] [phone] Cruzito Pulido, PT 02/02/2025 11:00 AM EDT Office Visit Orthopedic Surgery - [place] 160 175 [facility] [address] [place] [phone] Claudio Tafoya MD 175 [facility] 160 [place] [address] 04/07/2025 9:30 AM EDT Office Visit Orthopedic Surgery - [place] 175 [facility] 140 [place] [phone] Gladys Rojas MD [address] [phone] 05/28/2025 8:30 AM EDT Office Visit Adult Medicine [facility] [address] [place] [phone] Kasandra Mehta MD [address] [place] [address] documented as of this encounter Goals Goal [...] region documented in this encounter Care Teams Water Treatment Specialist Relationship Specialty Start Date End Date Kasandra Mehta MD [address] [place] [address] PCP - General 01/23/24 documented as of this encounter
== END 2025-01-14 11:59 | disposition home or self-care (01) ==
LOC: HO.MAMMO 11:58
PROVIDERS: PCP Internal Medicine; Visit Provider Internal Medicine
DX: Z12.31 Encounter for screening mammogram for malignant neoplasm of breast (principal)
CPT/HCPCS: 77063; 77067

== ENCOUNTER → 2025-01-14 12:30 | Outpatient (BNV) | payer OTHER, SELFPAY | PROVIDERS: PCP Internal Medicine; Visit Provider Internal Medicine | DX: Z12.31 Encounter for screening mammogram for malignant neoplasm of breast (principal) | CPT/HCPCS: 77063; 77067 ==

== ENCOUNTER 2025-01-22 14:30 | Outpatient (AMB) | payer OTHER, SELFPAY ==
--- NOTE | 2025-01-22 14:53 | MHC.AMDMED ---
Intake Intake Visit Reasons: 30 min Refinery Process Engineer Required: Yes Refinery Process Engineer Language: Food Service Worker Name: Aamir [id number] Allergies No Known Allergies Allergy (Verified 12/11/24 08:34) HPI Comprehensive Diabetes Asmnt Most Recent Diabetes Results: Creatinine 0.80 mg/dL (0.5-1.4) 11/17/24 Blood Urea Nitrogen 15 mg/dL (9-16) 11/17/24 Sodium 142 mmol/L (135-145) 11/17/24 Potassium 4.2 mmol/L (3.3-5.1) 11/17/24 Chloride 107 mmol/L (96-108) 11/17/24 Carbon Dioxide 27 mmol/L (22-29) 11/17/24 Calcium 9.4 mg/dL (8.4-10.2) 11/17/24 AST 42 U/L (5-31) H 11/17/24 ALT 72 U/L (0-31) H 11/17/24 Total Protein 8.3 g/dL (6.5-8.0) H 11/17/24 Albumin 4.3 g/dL (3.5-5.0) 11/17/24 [facility] Medical History Fibroids PMB (postmenopausal bleeding) Osteopenia Dyslipidemia Diabetic polyneuropathy associated with type 2 diabetes mellitus Diabetes type 2, uncontrolled Diabetes 1.5, managed as type 1 Panic anxiety syndrome Hospital discharge follow-up Vitamin D deficiency Carpal tunnel syndrome Incontinence Hemorrhoids Tubal occlusion Insomnia Elevated cholesterol Depression Hypertension IDDM (insulin dependent diabetes mellitus) Surgical History Hx of cataract surgery History of neck surgery History of surgery History of colonoscopy History of hemorrhoidectomy History of carpal tunnel release History of bladder surgery S/P sinus surgery Hx of breast reduction, elective Hx of appendectomy H/O tubal ligation History of heart artery stent Family History Father No problems noted. Mother Heart disease Lung cancer Brother Liver cancer Brother Renal cancer HTN (hypertension) Diabetes mellitus Maternal Grandfather No problems noted. Maternal Grandmother No problems noted. Paternal Grandfather No problems noted. Paternal Grandmother No problems noted. Maternal Uncle Diabetes mellitus Paternal Uncle Diabetes mellitus Son No problems noted. Daughter No problems noted. Social History Housing: House Alcohol intake: current Alcohol intake frequency: holidays/special occasions only Patient Tobacco Use Status: Former Tobacco user e-Cigarette/Vaping Use: Never Used service: No Current occupational status: disabled Current occupation: right hand dominant Sexual orientation: Straight/Heterosexual Gender identity: Female Cognitive needs: No Hearing needs: No Vision needs: Yes Female Reproductive History Menstrual Age of Menarche: 14 Assessment & Plan Assessment & Plan (1) Diabetes 1.5, managed as type 1: Code(s): E13.9 - Other specified diabetes mellitus without complications Plan: Personal Continuous Glucose Monitor: Patients CGM information reviewed, Pt uses [employer] 3+ sensor with smartphone katherine Sensor data: Hypoglycemia: 1%? Hyperglycemia:?13% Time in Range:?86% Average glucose for the last 2 weeks?133 mg/dL Overall patient's glucose is well controlled Patient reports taking Lantus 20 units daily Lispro 10 units before meals Patient has a few episodes of hypoglycemia overnight in in her inside b2b sales Reviewed with patient how to treat hypoglycemia with rule of 15s, Bulgarian handout given Instructed patient to reduce Lantus from 20 units to 16 units daily, if fasting glucose is above 150 mg mg/dL for more than 3 days in a row increase Lantus back to 18 units daily Follow-up with Diabetes Education nurse in 3 months Patient able to insert sensor independently at home without issue.? Portions of this note were created using voice recognition software, please excuse any words or phrases that may have been misinterpreted. Medications: Discontinued lancets (FreeStyle Lancets) Discontinued Reason: Duplicate Three times a day as needed for sensor failure or to confirm readings. 100 ea 11RF E11.65 - Type 2 diabetes mellitus with hyperglycemia Patient Instructions: Reducir Lantus de 20 unidades a 16 unidades. Si la glucosa en ayunas es mayor a 150 mg/dL aumentar Lantus a 18 unidades Coding Level of Care Code Est Pt Level 1 (54424) Diagnoses Diabetes 1.5, managed as type 1 E13.9
--- OUTSIDE RECORDS SUMMARY | 2025-01-22 17:44 | XMS_ITS | Encounter Summary ---
Author Organization [employer] Address [address] [place] [address] Care Team Providers Care Conventional Mortgage Underwriter Name Role Phone Kasandra Mehta MD Primary Care Prov ider Reason for Visit * Consultation (Routine) - Authorized Specialty Diagnoses / Procedures Referred By Contac t Referred To Contact Physical Therapy Diagnoses Chronic right shoulder pain Kasandra Mehta MD [address] [place] [address] Phone: tel: fax: Referral ID Status Reason Start Date Expiration Date Visits Requested Visits Authorized [id number] Authorized Specialty Services Required 11/27/2024 11/27/2025 13 13 Encounter Details Date Type Department Care Team ([facility] Contact Info) Description 01/12/2025 8:30 AM EST Treatment Outpatient Rehabilitation [address] [phone] Morgan Khan, SPORTS PHYSICAL THERAPIST Chronic right shoulder pain (Primary Dx) Social [...] Khan PTA - 01/12/2025 8:30 AM EST [facility] - Outpatient PHYSICAL THERAPY DAILY TREATMENT NOTE - OP Date: 01/12/2025 Visit Number: 5 Patient Name: Emma Prater : 1955 Age: 69 y.o. Gender: female Diagnosis: ICD-10-CM ICD-9-CM 1. Chronic right shoulder pain M25.511 719.41 G89.29 338.29 Date of Onset/Surgery: 12/15/2020 Referring Provider: Kasandra Mehta* Insurance: [facility] / Plan: [facility] CARE / Product Type: *No Product type* / Patient Identified by: Morgan Khan PTA Language: Norwegian Medications: Current Outpatient Medications on File Prior [...] Upcoming Encounters Date Type Department Care Team ([facility] st Contact Info) Description 02/02/2025 11:00 AM EDT Consult Orthopedic Surgery [facility] 160 175 [facility] 160 [place] [phone] Claudio Tafoya MD 175 [facility] 160 [place] [address] 04/07/2025 9:30 AM EDT Office Visit Orthopedic Surgery [facility] 175 [facility] 140 [place] [phone] Gladys Rojas MD 175 [facility] [address] [place] [phone] 05/28/2025 8:30 AM EDT Office Visit Adult Medicine [facility] [address] [place] [address] Kasandra Mehta MD [address] [place] [address] documented as of this encounter Goals Goal [...] region documented in this encounter Care Teams Conventional Mortgage Underwriter Relationship Specialty Start Date End Date Kasandra Mehta MD [address] [place] [address] PCP - General 01/23/24 documented as of this encounter
--- OUTSIDE RECORDS SUMMARY | 2025-01-22 17:44 | XMS_ITS | Encounter Summary ---
Author Organization [employer] Address [address] [place] [address] Care Team Providers Care Motor Grader Operator Name Role Phone Kasandra Mehta MD Primary Care Prov ider Reason for Visit * Consultation (Routine) - Authorized Specialty Diagnoses / Procedures Referred By Contac t Referred To Contact Physical Therapy Diagnoses Chronic right shoulder pain Kasandra Mehta MD [address] [place] [address] Phone: tel: fax: Referral ID Status Reason Start Date Expiration Date Visits Requested Visits Authorized [id number] Authorized Specialty Services Required 11/27/2024 11/27/2025 13 13 Encounter Details Date Type Department Care Team ([facility] Contact Info) Description 01/19/2025 12:30 PM EST Treatment Outpatient Rehabilitation [address] [phone] Cruzito Pulido, PT Chronic right shoulder pain [...] Progress Notes * Cruzito Pulido, PT - 01/19/2025 12:30 PM EST [facility] - Outpatient PHYSICAL THERAPY DAILY TREATMENT NOTE - OP Date: 01/19/2025 Visit Number: 6 Patient Name: Emma Prater : 1955 Age: 69 y.o. Gender: female Diagnosis: ICD-10-CM ICD-9-CM 1. Chronic right shoulder pain M25.511 719.41 G89.29 338.29 Date of Onset/Surgery: 12/15/2020 Referring Provider: Kasandra Mehta* Insurance: [facility] / Plan: [facility]ARE / Product Type: *No Product type* / Patient Identified by: Cruzito Pulido PT Language: Divehi Medications: Current Outpatient Medications on File Prior [...] risk: No Patient/Caregiver Goals: SUBJECTIVE Subjective Report: Much pain last night. No reason she can think of at this time. Chart Reviewed: Yes Pain Right shoulder 6/10 OBJECTIVE TREATMENT INTERVENTION: UBE x 6 min Standing scap row and shld ext with green tubing x 20 Prone shoulder extension, 3 sets of 10 reps, hold 3 counts. Prone T's in pain free range, 3 sets of 10 reps, hold 3 counts. Held the following this visit... Shld morgan flexion and abd x 15, use of 3 lb weight to un-weight UE (B) ER x 20 with orange tband Wall slide shld flex, 5 reps, hold 10 counts. (R) GH joint mobs. Pt supine for A->P glides and distraction at mid range flexion. (Not done this visit, omitted in error) US to (R) shoulder x 8 min ASSESSMENT/Response to Treatment Good pain decreased to 4/10 after today's treatment. Pt needs moderate encouragement to do HEP as instructed. Pt would benefit from frequent reminders of importance of HEP. Patient Education: Education provided: Yes Education Provided To: Patient utilizing Explanation mode(s) of education Response to Education: Verbal Understanding PLAN POC Development/Review: No Change in the Plan of Care; Participants: Patient Total Treatment Time: 30 Modalities: 10 Therapeutic procedures: 20 Documentation completed by Cruzito Pulido PT documented in this encounter Plan of Treatment Upcoming Encounters Date Type Department Care Team (Late st Contact Info) Description 02/02/2025 11:00 AM EDT Consult Orthopedic Surgery - [place] 160 175 [facility] [address] [place] [address] Claudio Tafoya MD 175 [facility] 160 [place] [address] 04/07/2025 9:30 AM EDT Office Visit Orthopedic Surgery - [place] 175 [facility] 140 [place] [address] Gladys Rojas MD 175 [facility] 140 [place] [phone] 05/28/2025 8:30 AM EDT Office Visit Adult Medicine [facility] [address] [place] [phone] Kasandra Mehta MD [address] [place] [address] documented as of this encounter Goals Goal [...] region documented in this encounter Care Teams Motor Grader Operator Relationship Specialty Start Date End Date Kasandra Mehta MD [address] [place] [address] PCP - General 01/23/24 documented as of this encounter
--- OUTSIDE RECORDS SUMMARY | 2025-01-22 17:44 | XMS_ITS | Data Portability ---
Author Organization [employer] [facility] [place] [facility] Address [address] [place] [phone] Care Team Providers Care Nurse'S Assistant Name Role Phone HIM CCA Referring Provider Assessment Encounter Date Assessment Date Assessment LastModified by Organization Details LastModified Time 03/10/2024 03/10/2024 I provided real -time medical direction via phone for this encounter, and was available for additional phone based assistance as needed. I have reviewed and agree with the Assessment and Plan as documented by the Dress Shoe Inspector. We discussed the diagnostic uncertainty of home [...] to call 911- verbalized understanding of instruction [email or web address] Not available 03/10/2024 11:57:00 Plan of Treatment Reminders Order Date Submit Date Provider Last Modified By Organization Details Last Modified Time Details Appointments None recorded. Lab BMP, serum or plasma 2023 024 [email or web address] 0 [facility], [address] [place] [address], [phone], 4 12:01:00 rapid flu (A+B) 2023 024 [email or web address], [phone], 4 11:56:35 rapid SARS CoV 2 Ag, QL IA, respiratory specimen 2023 024 [email or web address], [address] [place] [address], 11:56:33 Referral None recorded. Procedures None recorded. [...] BUN 15 Not Available Main - Ins [address], [address] [place] [address], 03/10/2024 11:59:38 03/10/20 24 03/10/2024 BMP, serum or plasm a Ca Ionize d calciu m 1.17 Not Available Main - [address], [address] [place] [address], 03/10/2024 11:59:38 03/10/20 24 03/10/2024 BMP, serum or plasm a CI- 108 Not Available Main - Ins [address], [address] [place] [address], 03/10/2024 11:59:38 03/10/20 24 03/10/2024 BMP, serum or plasm a CRE 0.6 Not Available Main - Ins [address], [address] [place] [address], 03/10/2024 11:59:38 03/10/20 24 03/10/2024 BMP, serum or plasm a GLU 198 Not Available Main - Ins [address], [address], 03/10/2024 11:59:38 03/10/20 24 03/10/2024 BMP, serum or plasm a K+ 3.9 Not Available Main - Ins [address], [address], 03/10/2024 11:59:38 03/10/20 24 03/10/2024 BMP, serum or plasm a Na+ 141 Not Available Main - Ins bhumika [address] [place] [address], [phone], 03/10/2024 11:59:38 03/10/20 24 03/10/2024 BMP, serum or plasm a tCO2 19 Not Available Main - Ins bhumika [address] [place] [address], [phone], 03/10/2024 11:59:38 03/10/20 24 03/10/2024 rapid SARS CoV 2 Ag, QL IA, respi rator y speci men rapid SARS CoV 2 Ag, QL IA, respiratory specimen negati ve Not Available Main - Inst ed [address] [place] [address], [phone], 03/10/2024 11:31:16 03/10/20 24 03/10/2024 rapid flu (A+B) Flu negati ve Not Available Main - Inst ed [address] [place] [address], [phone], 03/10/2024 11:31:14 Result Notes None recorded. Medical [...] Available Not Avai lable Comfort EZ Pen Taylors 33 gauge x 5/32 active Not Available [...] % 99 % 160.02 cm 98 [degF] 68152.7 2 g 18 /min 149 mm[Hg] 84 [...] SNOMED-CT Code Diagnosis ICD10 Code Diagnosis Note [id number] Liana Morris MD Main - instED [address] [place] [phone] 03/10/2024 11:29:39 03/10/2024 19:14:16 Influenza [id number] J11.1 resolving other than persistent cough-want to [...] Red flags reviewed with patient Rib pain [id number] R07.8 1 From cough, no crepitance to [...] Bates Member ID Guarantor Name 03/10/2024 1 [facility] - DOS ON OR AFTER 2023 - DUAL ELIGIBLE - [facility] OPTIONS AND ONE CARE (MEDICARE REPLACEMENT/ADV ANTAGE - HMO) Emma Prater [id number] Emma Prater Notes Date Note Type Note Provider Name and Address Organization Details Recorded Time 03/10/2024 text/html HPI: Member is 68 yo Citizen Of [place] speaking female, who was [facility] [place] [facility]24 for Flu and reports [...] .................. .................. .................. .................. .................. .................. ............... Dress Shoe Inspector Note From Reji Schaefer[facility]. Pt presents conscious and alert. wax molder utilized via phone. Pt states she was [...] Pt afebrile. Lung sounds clear. [facility] with [facility] who ordered covid and flu swabs, completed and both negative. [facility] ordered basic metabolic panel drawn and completed [...] to use MDI properly Liana Morris MD [address] [place] [address],[address], [place], [phone], [employer] 03/10/2024 14:04:41 OBGyn Episode No OBEpisode recorded.
--- OUTSIDE RECORDS SUMMARY | 2025-01-22 17:44 | XMS_ITS | Encounter Summary ---
Author Organization [facility] Address [address] [place] [address] Care Team Providers Care Chief Investment Officer Name Role Phone Kasandra Mehta MD Primary Care Prov ider Reason for Referral * Imaging (Routine) - Closed Specialty Diagnoses / Procedures Referred By Contac t Referred To Contact Radiology Diagnoses Osteoporosis screening Procedures BD Bone Density DXA Axial Skeleton Kasandra Mehta MD Phone: tel: fax: [address] [phone] Phone: tel: Referral ID Status Reason Start Date Expiration Date Visits Re quested Visits Authorized [id number] Closed 09/13/2024 09/13/2025 1 1 Reason for Visit * Imaging (Routine) - Closed Specialty Diagnoses / Procedures Referred By Contac t Referred To Contact Radiology Diagnoses Osteoporosis screening Procedures BD Bone Density DXA Axial Skeleton Kasandra Mehta MD Phone: tel: fax: [address] [phone] Phone: tel: Referral ID Status Reason Start Date Expiration Date Visits Re quested Visits Authorized [id number] Closed 09/13/2024 09/13/2025 1 1 Encounter Details Date Type Department Care Team (Latest Contact Info) Description 12/29/2024 8:14 AM EST - 12/29/2024 11:59 PM EST Hospital Encounter Bone Density [place] [phone] Osteoporosis screening Discharge Disposition: Home or Self [...] 02/02/2025 11:00 AM EDT Consult Orthopedic Surgery [facility] [address] [phone] Claudio Tafoya MD 175 [facility] 160 [place] [address] 04/07/2025 9:30 AM EDT Office Visit Orthopedic Surgery [facility] 175 [facility] 140 [place] [phone] Gladys Rojas MD [address] [phone] 05/28/2025 8:30 AM EDT Office Visit Adult Medicine [address] [phone] Kasandra Mehta MD [address] [place] [address] documented as of this encounter Goals Goal [...] (World Health Organization Fracture Risk Assessment) [facility] Department of Internal Medicine recommends using National [...] alternative screening schedule based on lucy Islas., [facility] December 14, 2011 for patients with osteopenia [...] Signed Date: 12/29/2024 10:36 ET Workstation ID: [id number] Transcribed By: Self Edit Transcribed Date: 12/29/2024 [...] (World Health Organization Fracture Risk Assessment) [facility] Department of Internal Medicine recommendsusing National Osteoporosis [...] alternative screening schedule based on lucy Islas., NEJMJanuary 2011 for patients with osteopenia (based on hip BMD T-score)is as follows: * advanced osteopenia (T scores -2.00 to -2.49), BMD testing every year * moderate osteopenia (T scores -1.50 to -1.99), BMD testing every 5years mild osteopenia or normal BMD (T scores -1.50 and higher), BMD testingevery 15 years -------- FINAL REPORT -------- Dictated By: Ann Marie Toriboi Dictated Date: 12/29/2024 10:33 ET Assigned Physician: Ann Marie Toribio Reviewed and Electronically Signed By: Ann Marie Toribio Signed Date: 12/29/2024 10:36 ET Workstation ID: [id number] Transcribed By: Self Edit Transcribed Date: 12/29/2024 10:33 ET us Kasandra Mehta MD IMG DXA PROCEDURES Final Result documented in this encounter Visit Diagnoses Diagnosis Osteoporosis screening Special screening for osteoporosis documented in this encounter Care Teams Chief Investment Officer Relationship Specialty Start Date End Date Kasandra Mehta MD [address] [place] [address] PCP - General 01/23/24 documented as of this encounter
--- OUTSIDE RECORDS SUMMARY | 2025-01-22 17:44 | XMS_ITS | Encounter Summary ---
Author Organization [employer] Address [address] [facility] 7t [place] [address] Care Team Providers Care Director Digital Communications Name Role Phone Unavailable Primary Care Provider Unavailabl e Encounter Details Date Type Department Care Team (Late st Contact Info) Description 05/25/2023 Telephone [facility] MEDICINE [address] [place] [address] Rosario Santoyo LPN Social History Tobacco Use Types Packs/Day Years Used Date Smoking Tobacco: Never Assessed Comments Unknown Sex and Gender Information Value Date Recorded Sex Assigned at Female 09/25/2022 10:20 AM EDT Legal Sex Female 10:20 AM EDT Gender Identity Female 09/25/2022 10:20 AM EDT Sexual Orientation Straight 09/25/2022 10 :20 AM EDT documented as of this encounter Plan of Treatment Upcoming Encounters Date Type Department Care Team (Late st Contact Info) Description 05/11/2025 10:00 AM EDT Office Visit [facility] ADULT DENTAL [address] [place] [address] Radha aHckett [address] [place] [address] documented as of this encounter Visit Diagnoses Not on filedocumented in this encounter
--- OUTSIDE RECORDS SUMMARY | 2025-01-22 17:44 | XMS_ITS | Encounter Summary ---
Author Organization [employer] Address [address] [facility] 7t [place] [address] Care Team Providers Care Assembler Metal Building Name Role Phone Unavailable Primary Care Provider Unavailabl e Encounter Details Date Type Department Care Team (Latest Contact Info) Description 03/23/2021 Abstract [facility] CONVERSIONS Dental, Provider, DDS Social History Tobacco Use Types Packs/Day Years [...] Description 05/11/2025 10:00 AM EDT Office Visit [facility] ADULT DENTAL 230 [place] [address] Sharad Hackettaris [address] [place] [address] documented as of this encounter Visit Diagnoses Not on filedocumented in this encounter
--- OUTSIDE RECORDS SUMMARY | 2025-01-22 17:44 | XMS_ITS | Clinical Summary ---
Author Organization [employer] Address [address] [place] [address] 7[address] [place] [address] Care Team Providers Care Reporter Name Role Phone Unavailable Primary Care Provider Unavailabl e Allergies No known active allergies Medications metFORMIN (Glucophage) 500 MG tablet Take by mouth. A ctive albuterol 0.63 MG/3ML nebulizer solution INHALE 3 ML 4 TIMES A DAY NEEDED FOR SHORTNESS OF BREATH OR WHEEZING 4 Active Jardiance 25 MG Take 1 tablet by mouth Once per day. Active hydrOXYzine pamoate (Vistaril) 25 MG capsule TAKE 1 CAPSULE BY MOUTH AT BEDTIME NEEDED FOR ANXIETY / for SLEEP Active NovoLOG FLEXPEN 100 UNIT/ML pen Active melatonin 5 MG tablet TAKE 2 TABLETS BY MOUTH EVERY DAY AT BEDTIME NEEDED 4 Active mirtazapine (Remeron) 15 MG tablet Take 1 tablet by mouth at bedtime. Active omeprazole (PriLOSEC) [address] capsule TOME 1 C PSULA POR V A ORAL TODOS LOS D FOR 90 DAYS 4 Active Ozempic, 1 MG/DOSE, 4 MG/3ML solution pen-injector Inject 1 MG SUBCUTANEOUSLY EVERY 7 DAYS IN THE ABDOMEN, THIGHS OR UPPER ARM. ROTATE INJECTION SITES. 4 Active Active Problems Problem Noted Date Diagnosed Date Symptomatic apical periodontitis 11/06/2024 Acute gingival inflammation 05/06/2024 Periodontal disease 05/06/2024 Dental calculus 05/06/2024 Generalized gingival recession 05/06/2024 Gingival bleeding 05/06/2024 Missing teeth, acquired 05/06/2024 Encounters Date Type Department Care Team Description 12/08/2024 2:15 PM EST Office Visit [facility] ADULT DENTAL [address] [place] [address] Juan Tellez 12/07/2024 Travel 11/06/2024 3:00 PM EST Office Visit [facility] ADULT DENTAL 230 [place] [address] Radha Hackett Pain of tooth on percussion (Primary Dx); Dental calculus; Generalized gingival recession; Symptomatic apical periodontitis from Last 3 Months Immunizations Name Administration Dates Next Due Td (adult), 5 Lf tetanus tox oid, preservative free, adsorbed 06/25/2017,02/13/2014 Zoster, Recombinant 09/25/2023,07/24/2023 Social History Tobacco Use Types Packs/Day Years Used Date Smoking Tobacco: Never Passive Smoke Exposure: Never Smokeless Tobacco: Never Tobacco Cessation:Counseling Given: No Alcohol Use Standard Drinks/Week Comments Never 0 (1 standard drink = 0.6 oz pur e alcohol) Comments Unknown Sex and Gender Information Value Date Recorded Sex Assigned at Female 09/25/2022 10:20 AM EDT Legal Sex Female 10:20 AM EDT Gender Identity Female 09/25/2022 10:20 AM EDT Sexual Orientation Straight 09/25/2022 10 :20 AM EDT Last Filed Vital Signs Vital Sign Reading Time Taken Comments Blood Pressure 128/74 11/06/2024 3:15 PM EST Pulse 70 05/06/2024 10:50 AM EDT Temperature - - Respiratory Rate - - Oxygen Saturation - - Inhaled Oxygen Concentration - - Weight - - Height - - Body Mass Index - - Plan of Treatment Upcoming Encounters Date Type Department Care Team (Late st Contact Info) Description 05/11/2025 10:00 AM EDT Office Visit [facility] ADULT DENTAL [address] [place] [address] Radha Hackett [address] [place] [address] Health Maintenance Due Date Last Done Comments CT Colonography 1955 Colonoscopy 1955 Colorectal Cancer Screening 1955 Depression Screening 1955 FIT DNA/Cologuard 1955 FIT 1955 FOBT 1955 Lipid Panel 1955 SDOH Screening 1955 Sigmoidoscopy 1955 Alcohol/Substance Use Screening 1969 Hepatitis C Screening 1975 Mammogram 1997 Pneumococcal Vaccine: 50+ Years (1 of 1 - PCV) 2007 DTaP/Tdap/Td Vaccines (1 - Tdap) 06/26/2017 06/25/2017, 02/13/2014 COVID-19 Vaccine (4 - season) 2024 11/10/2021, 03/08/2021, 02/08/2021 Influenza Vaccine (#1) 2024 Dental X-Ray: Bitewings 05/07/2025 05/06/20 24, 08/07/2022, 03/01/2021 Dental Oral Exam 05/08/2025 11/06/2024, 09/2024, 08/07/2022, Additional history exists Dental Prophylaxis 05/08/2025 11/06/2024, 0 05/06/2024, 08/07/2022, Additional history exists Tobacco Screening 11/06/2025 11/06/2024 Dental X-Ray: Full Mouth 05/07/2027 05/06/2024, 04/0 04/2021 RSV Patients and Patients Aged 60 years or older (1 - 1-dose 75+ series) 2032 Zoster Vaccines Completed 09/25/2023, 07/24/2023 HIB Vaccines [...] patient's age to complete this topic Meningococcal Vaccine Aged Out No candelario kori eligible based on patient's age to complete this topic RSV under 20 months Aged Out No longe r eligible based on patient's age to complete this topic Rotavirus Vaccines Aged Out No longer eligible based on patient's age to complete this topic Procedures Procedure Name Priority Date/Time Associated Diagnosis Comments 18 INTRAORAL - PERIAPICAL FIRST RADIOGRAPHIC IMAGE Routine 12/08/2024 2:15 PM EST 18 LIMITED ORAL EVALUATION - PROBLEM FOCUSED Routine 12/08/2024 2:15 PM EST PERIODIC ORAL EVALUATION - ESTABLISHED PATIENT Routine 11/06/2024 3:00 PM EST 18,17 INTRAORAL - PERIAPICAL FIRST RADIOGRAPHIC IMAGE Routine 11/06/2024 3:00 PM EST Pain of tooth on percussion Dental calculus Generalized gingival recession CASE PRESENTATION, DETAILED AND EXTENSIVE TREATMENT PLANNING Routine 11/06/2024 3:00 PM EST Pain of tooth on percussion Dental calculus Generalized gingival recession ORAL HYGIENE INSTRUCTIONS Routine 11/06/2024 3:00 PM EST Pain of tooth on percussion Dental calculus Generalized gingival recession TOPICAL APPLICATION OF FLUORIDE VARNISH Routine 11/06/2024 3:00 PM EST Pain of tooth on percussion Dental calculus Generalized gingival recession PROPHYLAXIS - ADULT Routine 11/06/2024 3 :00 PM EST Dental calculus Generalized gingival recession INTRAORAL - COMPLETE SERIES OF RADIOGRAPHIC IMAGES Routine 05/06/2024 11:00 AM EDT Acute gingival inflammation Periodontal disease Dental calculus Generalized gingival recession Gingival bleeding from Last 3 Months or Most Recently Relevant to Health Maintenance Insurance [facility]
--- OUTSIDE RECORDS SUMMARY | 2025-01-22 17:44 | XMS_ITS | Clinical Summary ---
Author Organization 175 [facility] Address 175 [place] [address] Phone Care Team Providers Care Optometric Technician Name Role Phone Kasandra Mehta MD Primary [...] Patient had some blood tests with her formulator compounder. A1c: 7.4 De Quervain's tenosynovitis 07/25/2024 Postoperative [...] Encounters Date Type Department Care Team Description 01/19/2025 12:30 PM EST Treatment Outpatient Rehabilitation - [address] [phone] Cruzito Pulido, PT Chronic right shoulder pain (Primary Dx) 01/12/2025 8:30 AM EST Treatment Outpatient Rehabilitation - [address] [phone] Morgan Khan, HUNTER Chronic right shoulder pain (Primary Dx) 01/09/2025 8:15 AM EST Office Visit Orthopedic Surgery - [address] [place] [phone] Gladys Rojas MD Surgery follow-up (Primary Dx); De Quervain's tenosynovitis; Calcific tendonitis of right shoulder 01/06/2025 8:30 AM EST Treatment Outpatient Rehabilitation - [address] [phone] Cruzito Pulido, PT Chronic right shoulder pain (Primary Dx) 01/02/2025 8:00 AM EST Treatment Outpatient Rehabilitation - [address] [phone] Morgan Khan PTA Chronic right shoulder pain (Primary Dx) 12/29/2024 8:14 AM EST - 12/29/2024 11:59 PM EST Hospital Encounter Bone Density - [address] [phone] Osteoporosis screening Discharge Disposition: Home or Self Care 12/22/2024 8:00 AM EST Treatment Outpatient Rehabilitation - [address] [phone] Morgan Khan, FILM COATER Chronic right shoulder pain (Primary Dx) 12/15/2024 10:30 AM EST Evaluation Outpatient Rehabilitation - [address] [phone] Cruzito Pulido, PT Chronic right shoulder pain (Primary Dx) 12/15/2024 Plan of Care Documentation Outpatient Rehabilitation - [address] [phone] 12/02/2024 10:00 AM EST Office Visit Orthopedic Surgery [address] [phone] Bela Manzanares PA Surgery follow-up (Primary Dx) 11/27/2024 11:15 AM EST Office Visit Adult Medicine [facility] - [address] [phone] Kasandra Wood MD Diabetes mellitus due to underlying condition with hyperosmolarity without coma, without long-term current use of insulin ([facility]) (Primary Dx); Anxiety; Chronic right shoulder pain 11/20/2024 8:45 AM EST - 11/20/2024 10:15 AM EST Surgery [facility] Main OR [address] [place] [phone] Gladys Rojas MD FIRST DORSAL COMPARTMENT RELEASE/DEQUERVAINS LEFT [[id number] (CPT??)] 11/20/2024 8:45 AM EST Anesthesia Event [facility] OR [address] [place] [phone] Ishaan Stoddard DO 11/20/2024 7:23 AM EST - 11/20/2024 10:35 AM EST Hospital Encounter [facility] OR [address] [place] [phone] Gladys Rojas MD Discharge Disposition: Home or Self Care 11/11/2024 10:15 AM EST Consult Orthopedic Surgery - [place] 175 [facility] [address] [place] [phone] Gladys Rojas MD Radial styloid tenosynovitis (Primary Dx) 10/28/2024 Telephone Orthopedic Surgery [facility] 250 175 [facility] 250 [place] [phone] Gladys Rojas MD from Last 3 [...] finger release OTHER SURGICAL HISTORY 01/16/2023 PROCEDURE: GA ARTHRD ANT INTERDY CERVCL BELW C2 EA [...] 02/02/2025 11:00 AM EDT Consult Orthopedic Surgery [facility] [address] [phone] Claudio Tafoya MD 175 [facility] 160 [place] [address] 04/07/2025 9:30 AM EDT Office Visit Orthopedic Surgery [facility] 175 [facility] 140 [place] [phone] Gladys Rojas MD 175 [facility] 140 [place] [phone] 05/28/2025 8:30 AM EDT Office Visit Adult Medicine [address] [phone] Kasandra Mehta MD [address] [place] [phone] Health Maintenance Due Date Last Done Comments Breast Cancer Screening 1955 Pneumococcal Vaccine: 50+ Years (1 of 2 - PCV) 1976 RSV Immunization Patients 60 + Years Old (1 - Risk 60-74 years 1-dose series) 2017 Cholesterol Screening (Lipid Panel) 11/05/2022 Colorectal Cancer Screening: Colonoscopy 11/05/2022 Hepatitis C Screening 11/05/2022 Medicare Annual Wellness Visit 11/05/2022 Social Influencers of Health Screening 11/05/2022 COVID-19 Vaccine (4 - 2023-2 5 season) 2024 11/10/2021, 03/08/2021, 02/08/2021 Diabetes: [...] Patient-Stated? Author STG's 6 visits General Yes Tess, Cruzito, PT Note: Pt will demonstrate combined right [...] COMPLETE Routine 12/18/2024 3 :12 PM EST GA INCISION EXTENSOR TENDON SHEATH WRIST 11/20/2024 8:51 [...] (World Health Organization Fracture Risk Assessment) [facility] Department of Internal Medicine recommends using National [...] alternative screening schedule based on lucy Islas., [facility] December 14, 2011 for patients [...] Signed Date: 12/29/2024 10:36 ET Workstation ID: [id number] Transcribed By: Self Edit Transcribed Date: 12/29/2024 [...] (World Health Organization Fracture Risk Assessment) [facility] Department of Internal Medicine recommendsusing National Osteoporosis [...] alternative screening schedule based on lucy Islas., NEJJanuary 2011 for patients with osteopenia (based on [...] Signed Date: 12/29/2024 10:36 ET Workstation ID: [id number] Transcribed By: Self Edit Transcribed Date: 12/29/2024 10:33 ET us Kasandra Mehta MD IMG DXA PROCEDURES Final Result * US Abdomen Complete (12/18/2024 3:12 PM EST) Anatomical Region Laterality Modality Body Ultrasound Historical Provider MD IMG US PROCEDURES Final R esult * ECG 12 lead - Procedural (No Charge) (11/20/2024 8:40 AM EST) Ventricular Rate ECG 91 BPM GEMUSE Atrial Rate 91 BPM GEMUSE P-R Interval 170 ms GEMUSE QRS Duration 90 ms GEMUSE Q-T Interval 372 ms GEMUSE QTc 457 ms GEMUSE P Wave [place] 51 degrees GEMUSE R [place] 43 degrees GEMUSE T [place] 57 degrees GEMUSE ECG Interpretation Normal sinus rhythm Normal ECG When compared with ECG of 16-JAN-2023 11:21, No significant change was found Confirmed by JAVON ECHEVARRIA ([id number]) on 11/22/2024 10:38:44 AM GEMUSE 11/20/2024 8:40 AM EST 11/22/2024 10:38 AM EST Ishaan Stoddard DO ECG ORDERABLES Final Result GEMUSE * (ABNORMAL) POCT Glucose, blood (11/20/2024 7:45 AM EST) Glucose POCT 164(H) 70 - 100 mg/dL 11/20/2024 7:46 AM EST [facility] Blood Capillary blood specimen / Unknown 11/20/2024 7:45 AM EST 11/20/2024 7:47 AM EST Gladys Rojas MD LAB POINT OF CARE TE ST DOCKED DEVICE UNSOLICITED RESULTS Final Result Performing Organization Address City/[facility]/ZIP Co de Phone Number [facility]) [facility] [address] [place] [address], [place] [phone] from Last 3 Months Insurance [facility] MEDICARE Member Subscriber Plan / Payer (Ef fective 2022-Present) Name:mEma Prater Relation to Subscriber:Self Name:Emma Prater Payer ID:[id number] Group ID:[id number] Type:Not on file Address: [place] [address] [address] [id number] Care Teams Optometric Technician Relationship Specialty Start Date End Date Kasandra Mehta MD [address] [place] [address] [phone] PCP - General 01/23/24
--- OUTSIDE RECORDS SUMMARY | 2025-01-22 17:44 | XMS_ITS | Encounter Summary ---
Author Organization [employer] Address [address] [place] [address] Care Team Providers Care Construction Area Manager Name Role Phone Kasandra Mehta MD Primary Care Prov ider Reason for Visit * Consultation (Routine) - Authorized Specialty Diagnoses / Procedures Referred By Contac t Referred To Contact Physical Therapy Diagnoses Chronic right shoulder pain Kasandra Mehta MD [address] [place] [address] Phone: tel: fax: Referral ID Status Reason Start Date Expiration Date Visits Requested Visits Authorized [id number] Authorized Specialty Services Required 11/27/2024 11/27/2025 13 13 Encounter Details Date Type Department Care Team ([facility] Contact Info) Description 01/06/2025 8:30 AM EST Treatment Outpatient Rehabilitation [address] [phone] Cruzito Pulido, PT Chronic right shoulder pain [...] Pulido, PT - 01/06/2025 8:30 AM EST [facility] - Outpatient PHYSICAL THERAPY DAILY TREATMENT NOTE - OP Date: 01/06/2025 Visit Number: 4 Patient Name: Emma Prater : 1955 Age: 69 y.o. Gender: female Diagnosis: ICD-10-CM ICD-9-CM 1. Chronic right shoulder pain M25.511 719.41 G89.29 338.29 Date of Onset/Surgery: 12/15/2020 Referring Provider: Kasandra Mehta* Insurance: Payor: [facility] / Plan: [facility] CARE / Product Type: *No Product type* / Patient Identified by: Cruzito Pulido PT Language: Mongolian Medications: Current Outpatient Medications on File Prior [...] 02/02/2025 11:00 AM EDT Consult Orthopedic Surgery [facility] 160 175 [facility] 160 [place] [phone] Claudio Tafoya MD 175 [facility] 160 [place] [address] 04/07/2025 9:30 AM EDT Office Visit Orthopedic Surgery [facility] 175 [facility] 140 [place] [phone] Gladys Rojas MD 175 [facility] [address] [place] [phone] 05/28/2025 8:30 AM EDT Office Visit Adult Medicine [facility] [address] [place] [phone] Kasandra Mehta MD [address] [place] [address] documented as of this encounter Goals Goal [...] region documented in this encounter Care Teams Construction Area Manager Relationship Specialty Start Date End Date Kasandra Mehta MD [address] [place] [address] PCP - General 01/23/24 documented as of this encounter
--- OUTSIDE RECORDS SUMMARY | 2025-01-22 17:44 | XMS_ITS | Encounter Summary ---
Author Organization [employer] Address [address] [facility] [employer] [address] [place] [address] Care Team Providers Care Instructional Materials Director Name Role Phone Unavailable Primary Care Provider Unavailabl e Encounter Details Date Type Department Care Team (Latest Contact Info) Description 08/07/2022 Abstract [facility] CONVERSIONS Dental, Provider, DDS Social History [...] Description 05/11/2025 10:00 AM EDT Office Visit [facility] ADULT DENTAL [address] [place] [address] Sharad Hackettaris [address] [place] [address] documented as of this encounter Visit Diagnoses Not on filedocumented in this encounter
--- OUTSIDE RECORDS SUMMARY | 2025-01-22 17:44 | XMS_ITS | Encounter Summary ---
Author Organization [employer] Address [address] [place] [address] Care Team Providers Care Stitcher Operator Name Role Phone Kasandra Mehta MD Primary Care Prov ider Encounter Details Date Type Department Care Team (Late st Contact Info) Description 01/09/2025 8:15 AM EST Office Visit Orthopedic Surgery - [place] 175 [facility] [address] [place] [phone] Gladys Rojas MD 175 [facility] 140 [place] [phone] Surgery follow-up (Primary Dx); De Quervain's tenosynovitis; [...] 02/02/2025 11:00 AM EDT Consult Orthopedic Surgery [place] [address] [phone] Claudio Tafoya MD [address] [address] 04/07/2025 9:30 AM EDT Office Visit Orthopedic Surgery [facility] [address] [phone] Gladys Rojas MD [address] [phone] 05/28/2025 8:30 AM EDT Office Visit Adult Medicine [address] [phone] Kasandra Mehta MD [address] [place] [address] documented as of this encounter Goals Goal [...] shoulder documented in this encounter Care Teams Stitcher Operator Relationship Specialty Start Date End Date Kasandra Mehta MD [address] [place] [address] PCP - General 01/23/24 documented as of this encounter
--- OUTSIDE RECORDS SUMMARY | 2025-01-22 17:44 | XMS_ITS | Encounter Summary ---
Author Organization [employer] Address [address] [place] [address] Care Team Providers Care Line Walker Name Role Phone Kasandra Mehta MD Primary Care Prov ider Reason for Visit * Consultation (Routine) - Authorized Specialty Diagnoses / Procedures Referred By Contac t Referred To Contact Physical Therapy Diagnoses Chronic right shoulder pain Kasandra Mehta MD [address] [place] [address] Phone: tel: fax: Referral ID Status Reason Start Date Expiration Date Visits Requested Visits Authorized [id number] Authorized Specialty Services Required 11/27/2024 11/27/2025 13 13 Encounter Details Date Type Department Care Team ([facility] Contact Info) Description 01/02/2025 8:00 AM EST Treatment Outpatient Rehabilitation [address] [phone] Morgan Khan, RUBBER TESTER Chronic right shoulder pain (Primary Dx) Social [...] Khan PTA - 01/02/2025 8:00 AM EST [facility] - Outpatient PHYSICAL THERAPY DAILY TREATMENT NOTE - OP Date: 01/02/2025 Visit Number: 3 Patient Name: Emma Prater : 1955 Age: 69 y.o. Gender: female Diagnosis: ICD-10-CM ICD-9-CM 1. Chronic right shoulder pain M25.511 719.41 G89.29 338.29 Date of Onset/Surgery: 12/15/2020 Referring Provider: Kasandra Mehta* Insurance: [facility] / Plan: [facility] C[facility] / Product Type: *No Product type* / Patient Identified by: Morgan Khan PTA Language: Bolivian Medications: Current Outpatient Medications on File Prior [...] 02/02/2025 11:00 AM EDT Consult Orthopedic Surgery [facility] 160 175 [facility] 160 [place] [phone] Claudio Tafoya MD 175 [facility] 160 [place] [address] 04/07/2025 9:30 AM EDT Office Visit Orthopedic Surgery [facility] 175 [facility] 140 [place] [phone] Gladys Rojas MD 175 [facility] 140 [place] [phone] 05/28/2025 8:30 AM EDT Office Visit [address] [phone] Kasandra Mehta MD [address] [place] [address] documented as of this encounter Goals Goal [...] region documented in this encounter Care Teams Line Walker Relationship Specialty Start Date End Date Kasandra Mehta MD [address] [place] [address] PCP - General 01/23/24 documented as of this encounter
== END 2025-01-22 14:57 | disposition home or self-care (01) ==
PROVIDERS: PCP Internal Medicine; Visit Provider Registered Nurse Diabetes Educator
DX: E13.9 Other specified diabetes mellitus without complications (principal)

== ENCOUNTER → 2025-01-22 14:30 | Outpatient (BNVA) | payer OTHER, SELFPAY | PROVIDERS: PCP Internal Medicine; Visit Provider Registered Nurse Diabetes Educator | DX: E13.9 Other specified diabetes mellitus without complications (principal); Z79.4 Long term (current) use of insulin | CPT/HCPCS: 99211 ==

== ENCOUNTER 2025-02-25 10:44 | Outpatient (REF) | payer OTHER, SELFPAY ==
--- NOTE | ~2025-02-25 | US_ITS ---
CLINICAL HISTORY: D21.9 - Benign neoplasm of connective and other soft tissue, unspecified US pelvis transabdominal and transvaginal Comparison: 02/27/2024 Findings: Uterus measures 5.5 x 2.7 x 4.4 cm. 8 mm (versus 10 mm previously) intramural proximal uterine fibroid. Endometrium 3 mm thickness. Right ovary measures 2.4 x 1.3 x 1.2 cm. Left ovary not seen. No adnexal mass lesion. No free fluid. IMPRESSION: Nonprogressive subcentimeter proximal uterine intramural fibroid. This document has been electronically signed by: Cece Queen MD on 02/25/2025 12:18:48
--- OUTSIDE RECORDS SUMMARY | 2025-02-25 12:47 | XMS_ITS | Clinical Summary ---
Author Organization [address] [facility] Address 175 [place] [address] Phone Care Team Providers Care Wax Specialist Name Role Phone Kasandra Mehta MD [...] Amount: 30 mg 6 each 4 Active Additional Information Patient not taking.Reported on 02/02/2025 Hospital, Clinic, or Other Facility Administered Medication Ordered Dose Route Frequency Start Date End Date Status lidocaine (XYLOCAINE) 1 % injection 3 mLIndications:Calcif ic tendonitis of right shoulder 3 mL inj Once PRN Procedure 02/23/2025 02/23/2025 Ended lidocaine (XYLOCAINE) 1 % injection 4 mLIndications:Calcif ic tendonitis of right shoulder 4 mL inj Once PRN Procedure 02/23/2025 02/23/2025 Ended triamcinolone acetonide (KENALOG-40) 40 mg/mL injection 40 mgIndications:Calcif ic tendonitis of right shoulder 40 mg IAtc Once PRN Procedure 02/23/2025 02/23/2025 Ended Active Problems Problem Noted Date Diagnosed Date [...] Patient had some blood tests with her auto rental clerk. A1c: 7.4 De Quervain's tenosynovitis 07/25/2024 Postoperative [...] Encounters Date Type Department Care Team Description 02/23/2025 2:05 PM EDT Ancillary Procedure Orthopedic Surgery [facility] [address] [phone] Calcific tendonitis of right shoulder 02/23/2025 2:00 PM EDT Ancillary Procedure Orthopedic Surgery [facility] [address] [address] Calcific tendonitis of right shoulder 02/23/2025 2:00 PM EDT Procedure visit Orthopedic [facility] [address] [phone] Ann-Marie Casey MD Calcific tendonitis of right shoulder (Primary Dx) 02/02/2025 11:00 AM EDT Consult Orthopedic Surgery [facility] [address] [phone] Claudio Tafoya MD Calcific tendonitis of right shoulder (Primary Dx) 01/19/2025 12:30 PM EST Treatment Outpatient Rehabilitation - [address] [phone] Cruzito Pulido, PT Chronic right shoulder pain (Primary Dx) 01/12/2025 8:30 AM EST Treatment Outpatient Rehabilitation - [address] [phone] Morgan Khan, NAIL KEGGER Chronic right shoulder pain (Primary Dx) 01/09/2025 8:15 AM EST Office Visit Orthopedic Surgery - [address] [place] [phone] Gladys Rojas MD Surgery follow-up (Primary Dx); De Quervain's tenosynovitis; Calcific tendonitis of right shoulder 01/06/2025 8:30 AM EST Treatment Outpatient Rehabilitation - [address] [phone] Cruzito Pulido, PT Chronic right shoulder pain (Primary Dx) 01/02/2025 8:00 AM EST Treatment Outpatient [facility] - [address] [phone] Morgan Khan, NAIL KEGGER Chronic right shoulder pain (Primary Dx) 12/29/2024 8:14 AM EST - 12/29/2024 11:59 PM EST Hospital Encounter Bone Density - [address] [phone] Osteoporosis screening Discharge Disposition: Home or Self Care 12/22/2024 8:00 AM EST Treatment Outpatient Rehabilitation - [address] [phone] Morgan Khan, NAIL KEGGER Chronic right shoulder pain (Primary Dx) 12/15/2024 10:30 AM EST Evaluation Outpatient Rehabilitation - [address] [phone] Cruzito Pulido, PT Chronic right shoulder pain (Primary Dx) 12/15/2024 Plan of Care Documentation Outpatient Rehabilitation - [address] [phone] 12/02/2024 10:00 AM EST Office Visit Orthopedic Surgery - [place] 175 [facility] [address] [place] [address] Bela Manzanares PA Surgery follow-up (Primary Dx) 11/27/2024 11:15 AM EST Office Visit Adult Medicine [facility] - [address] [phone] Kasandra Wood MD Diabetes mellitus due to underlying condition with hyperosmolarity without coma, without long-term current use of insulin (CMS/[facility]) (Primary Dx); Anxiety; Chronic right shoulder pain from Last 3 Months Immunizations Name Administration [...] finger release OTHER SURGICAL HISTORY 01/16/2023 PROCEDURE: AK ARTHRD ANT INTERDY CERVCL BELW C2 EA ADDL NTRSPC; COMMENT: C3-4 ACDF, Dr. Mckeon OTHER SURGICAL HISTORY PROCEDURE: HISTORY OTHER; COMMENT: Bladder left APPENDECTOMY PROCEDURE: HISTORICAL APPENDECTOMY TUBAL LIGATION PROCEDURE: HISTORICAL TUBAL LIGATION SPINE SURGERY CARPAL TUNNEL RELEASE CERVICAL LAMINECTOMY Medical History Medical History Date Comments Asthma DX:Asthma Diabetes mellitus (CMS/HCC) DX:D iabetes mellitus ([facility]) Depression DX:Depression Anxiety DX:Anxiety Arthritis DX:Arthritis Joint [...] EST Inhaled Oxygen Concentration - - Weight 73.9 kg (163 lb) 02/23/2025 1:40 PM EDT Height 160 cm (5' 2.99 ) 02/23/2025 1:40 PM EDT Body Mass Index 28.88 02/23/2025 1:40 PM EDT Plan of Treatment Upcoming Encounters Date Type Department Care Team (Late st Contact Info) Description 02/26/2025 9:00 AM EDT Evaluation [facility] Rehabilitation [facility] 175 [facility] 350 [place] [phone] Milton Cuellar, PT 175 [place] [address] 04/07/2025 9:30 AM EDT Office Visit Orthopedic Surgery [facility] 175 [facility] 140 [place] [phone] Gladys Rojas MD 175 [facility] 140 [place] [phone] 05/06/2025 9:00 AM EDT Office Visit Orthopedic Surgery [facility] 160 175 [facility] 160 [place] [phone] Joi Hillman PA 175 [facility] 160 [place] [address] 05/28/2025 8:30 AM EDT Office Visit Adult Medicine [address] [phone] Kasandra Mehta MD 4 [place] [address] Health Maintenance Due Date Last Done Comments Pneumococcal Vaccine: 50+ Years (1 of 2 - PCV) 1976 RSV Immunization Adult Patients (1 - Risk 60-74 years 1-dose series) [...] 08/15/2025 08/15/2024 Falls Risk Assessment 08/15/2025 08/15/2024 Breast Cancer Screening 01/20/2027 01/20/2025 DTaP,Tdap,and Td Vaccines (3 - Td or [...] Procedure Name Priority Date/Time Associated Diagnosis Comments AK ARTHROCENTESIS/ASPIR ATION/INJECTION MAJOR JOINT/BURSA W/O U/S GUIDANCE Routine 02/23/2025 2:00 PM EDT Calcific tendonitis of right shoulder INJECTION TENDON OR LIGAMENT Routine 02/23/2025 2:00 PM EDT Calcific tendonitis of right shoulder US INJ TENDON ORIGIN/INSERT SGL Routine 02/23/2025 1:58 PM EDT Calcific tendonitis of right shoulder MG MAMMO DIGITAL DIAGNOSTIC W ABEBE BILAT Routine 01/20/2025 1:09 PM EST XR SHOULDER 2+ VIEWS RIGHT Routine 01/09/2025 8:23 AM EST Pain BD BONE DENSITY DXA AXIAL SKELETON Routine 12/29/2024 8:38 AM EST Osteoporosis screening US ABDOMEN COMPLETE Routine 12/18/2024 3 :12 PM EST from Last 3 Months Results * AK ARTHROCENTESIS/ASPIRATION/INJECTION MAJOR JOINT/BURSA W/O U/S GUIDANCE (02/23/2025 2:00 PM EDT) Narrative Ann-Marie Casey MD - 02/23/2025 2:00 PM EDT Ann-Marie Casey MD ? 02/23/2025 ??2:30 PM L Inj/Asp: R subcoracoid bursa Indications: pain Details: 22 G needle, anterior approach Medications: 3 mL lidocaine 1 %; 40 mg triamcinolone acetonide 40 mg/mL Outcome: tolerated well, no immediate complications Informed Consent: ??Laterality: ??Right ??Relevant images/test results available and reviewed: yes ?Health status cleared: ??Yes ??Procedure/treatment, purpose, treatment alternatives, risks/potential complications and benefits explained: yes ?Patient questions answered: yes ?Patient agrees, verbalizes understanding, and wants to proceed: yes ?Consent given by: ??Patient ??Informed consent discussion completed by Physician/HELENA with patient: ?? Verbal ??Pre-procedure timeout performed: yes ?? us Ann-Marie Casey MD IN CLINIC/BEDSIDE ORDERABLES F inal Result * Injection tendon or ligament (02/23/2025 2:00 PM EDT) Narrative Ann-Marie Casey MD - 02/23/2025 2:00 PM EDT Ann-Marie Casey MD ? 02/23/2025 ??2:30 PM Injection tendon or ligament for (Rotator cuff calcific tendonosis) Indications: pain Details: 22 G needle, (anterior) approach (guidance: US guided) Medications: 4 mL lidocaine 1 % Aspirate: 0 mL Outcome: tolerated well, no immediate complications Informed Consent: ??Laterality: ??Right ??Relevant images/test results available and reviewed: yes ?Health status cleared: ??Yes ??Procedure/treatment, purpose, treatment alternatives, risks/potential complications and benefits explained: yes ?Patient questions answered: yes ?Patient agrees, verbalizes understanding, and wants to proceed: yes ?Consent given by: ??Patient ??Informed consent discussion completed by Physician/HELENA with patient: ?? Verbal ??Pre-procedure timeout performed: yes ?? us Ann-Marie Casey MD IN CLINIC/BEDSIDE ORDERABLES F inal Result * US Inj Tendon Origin/insert Sgl (02/23/2025 1:58 PM EDT) Anatomical Region Laterality Modality Extremity Ultrasound Narrative 02/23/2025 2:22 PM EDT [place] note: Right ??Shoulder ultrasound-guided barbotage for calcific tendinopathy. Risk including infection,, neurovascular injury and tendon rupture were thoroughly discussed with the patient. The patient understood the risks and gave verbal consent for the procedure. The anterior shoulder was prepped with Chloro-prep after anatomical landmarks where palpated and visualized with ultrasound. Ethyle chloride was used as to topical anesthetic. Then using a 23-gauge 1-1/2 inch needle lidocaine 2 mL was used as a local anesthetic and under ultrasound guidance the needle was guided to the calcific deposit where multiple passes were made through to the deposit and lidocaine 4cc was injected for anesthesia. No ?? debris was aspirated. Using sterile technique under ultrasound guidance without complications. The patient tolerated the procedure well. Aftercare was thoroughly discussed with the patient. Images were recorded and will permanently stored in patients medical record. us Ann-Marie Casey MD G US PROCEDURES Final Result * MG Mammo Digital Diagnostic w Abebe bilat (01/20/2025 1:09 PM EST) Anatomical Region Laterality Modality Breast Bilateral Mammography us Kasandra Mehta MD IMG BI PROCEDURES Final Result * XR Shoulder 2+ Views Right (01/09/2025 [...] (World Health Organization Fracture Risk Assessment) [facility] Department of Internal Medicine recommends using [...] alternative screening schedule based on lucy Islas., [facility] December 14, 2011 for [...] Signed Date: 12/29/2024 10:36 ET Workstation ID: [id number] Transcribed By: Self Edit Transcribed Date: 12/29/2024 [...] (World Health Organization Fracture Risk Assessment) [facility] Department of Internal Medicine recommendsusing National [...] Signed Date: 12/29/2024 10:36 ET Workstation ID: [id number] Transcribed By: Self Edit Transcribed Date: 12/29/2024 10:33 ET us Kasandra Mehta MD IMG DXA PROCEDURES Final Result * US Abdomen Complete (12/18/2024 3:12 PM EST) Anatomical Region Laterality Modality Body Ultrasound us Historical Provider IMG US PROCEDURES Final R esult from Last 3 Months Insurance [facility] MEDICARE Member Subscriber Plan / Payer (Ef fective 2022-Present) Name:Emma Prater Relation to Subscriber:Self Name:Emma Prater Payer ID:[id number] Group ID:[id number] Type:Not on file Address: [place] [address] [address] [address] Care Teams Wax Specialist Relationship Specialty Start Date End Date Kasandra Mehta MD [address] [place] [address] [phone] PCP - General 01/23/24
--- OUTSIDE RECORDS SUMMARY | 2025-02-25 12:47 | XMS_ITS | Data Portability ---
Author Organization [employer] [facility] Address [address] [place] [phone] Care Team Providers Care Piano Regulator Inspector Name Role Phone HIM CCA Referring Provider [phone] Assessment Encounter Date Assessment Date Assessment LastModified by Organization Details LastModified Time 03/10/2024 03/10/2024 I provided real -time medical direction via phone for this encounter, and was available for additional phone based assistance as needed. I have reviewed and agree with the Assessment and Plan as documented by the Side Show Entertainer. We discussed the diagnostic uncertainty of home [...] to call 911- verbalized understanding of instruction [email or web address] Not available 03/10/2024 11:57:00 Plan of Treatment Reminders Order Date Submit Date Provider Last Modified By Organization Details Last Modified Time Details Appointments None recorded. Lab BMP, serum or plasma 2023 024 [email or web address] 0 [facility], [address] [place] [address], [phone], 4 12:01:00 rapid flu (A+B) 2023 024 [email or web address], [phone], 4 11:56:35 rapid SARS CoV 2 Ag, QL IA, respiratory specimen 2023 024 [email or web address], [address] [place] [address], 11:56:33 Referral None recorded. Procedures None recorded. [...] BUN 15 Not Available Main - Ins [address], [address] [place] [address], 03/10/2024 11:59:38 03/10/20 24 03/10/2024 BMP, serum or plasm a Ca Ionize d calciu m 1.17 Not Available Main - [address], [address] [place] [address], 03/10/2024 11:59:38 03/10/20 24 03/10/2024 BMP, serum or plasm a CI- 108 Not Available Main - Ins [address], [address] [place] [address], 03/10/2024 11:59:38 03/10/20 24 03/10/2024 BMP, serum or plasm a CRE 0.6 Not Available Main - Ins [address], [address] [place] [address], 03/10/2024 11:59:38 03/10/20 24 03/10/2024 BMP, serum or plasm a GLU 198 Not Available Main - Ins [address], [address], 03/10/2024 11:59:38 03/10/20 24 03/10/2024 BMP, serum or plasm a K+ 3.9 Not Available Main - Ins [address], [address], 03/10/2024 11:59:38 03/10/20 24 03/10/2024 BMP, serum or plasm a Na+ 141 Not Available Main - Ins bhumika [address] [place] [address], [address], 03/10/2024 11:59:38 03/10/20 24 03/10/2024 BMP, serum or plasm a tCO2 19 Not Available Main - Ins bhumika [address] [place] [address], [phone], 03/10/2024 11:59:38 03/10/20 24 03/10/2024 rapid SARS CoV 2 Ag, QL IA, respi rator y speci men rapid SARS CoV 2 Ag, QL IA, respiratory specimen negati ve Not Available Main - Inst ed [address] [place] [address], [phone], 03/10/2024 11:31:16 03/10/20 24 03/10/2024 rapid flu (A+B) Flu negati ve Not Available Main - Inst ed [address] [place] [address], [phone], 03/10/2024 11:31:14 Result Notes None recorded. Medical [...] Available Not Avai lable Comfort EZ Pen [place] 33 gauge x 5/32 active Not Available [...] % 99 % 160.02 cm 98 [degF] 97385.7 2 g 18 /min 149 mm[Hg] 84 [...] SNOMED-CT Code Diagnosis ICD10 Code Diagnosis Note [id number] Liana Morris MD Main - instED [address] [place] [phone] 03/10/2024 11:29:39 03/10/2024 19:14:16 Influenza 4547405 J11.1 resolving other than persistent cough-want to [...] Red flags reviewed with patient Rib pain [id number] R07.8 1 From cough, no crepitance to [...] Bates Member ID Guarantor Name 03/10/2024 1 [facility] - DOS ON OR AFTER 2023 - DUAL ELIGIBLE - [employer] OPTIONS AND ONE C[employer] (MEDICARE REPLACEMENT/ADV ANTAGE - HMO) Emma Prater [id number] Emma Prater Notes Date Note Type Note Provider Name and Address Organization Details Recorded Time 03/10/2024 text/html HPI: Member is 68 yo Gibraltarian speaking female, who was treated at [facility] on 03/06/24 for Flu and reports [...] .................. .................. .................. .................. .................. .................. ............... Side Show Entertainer Note From Reji Schaefer: [facility] and rib pain. Pt presents conscious and alert. circuits engineer utilized via phone. Pt states she was [...] Pt afebrile. Lung sounds clear. Consulted with [facility] who ordered covid and flu swabs, completed and both negative. [facility] ordered basic metabolic [...] to use MDI properly Liana Morris MD [address] [place] [address],[address], [place], [phone], [employer] 03/10/2024 14:04:41 OBGyn Episode No OBEpisode recorded.
--- OUTSIDE RECORDS SUMMARY | 2025-02-25 12:47 | XMS_ITS | Encounter Summary ---
Author Organization [employer] Address [address] [place] [address] Care Team Providers Care Security Messenger Name Role Phone Kasandra Mehta MD Primary Care Prov ider Reason for Visit * Imaging (Routine) - Pending Review Specialty Diagnoses / Procedures Referred By Contac t Referred To Contact Radiology Diagnoses Calcific tendonitis of right shoulder Procedures US Inj Tendon Origin/insert Sgl Ann-Marie Casey MD 175 [facility] [address] [place] [address] Phone: tel: fax: Referral ID Status Reason Start Date Expiration Date V isits Requested Visits Authorized [id number] Pending Review 02/23/2025 02/23/2026 1 1 Encounter Details Date Type Department Care Team (Latest Contact Info) Description 02/23/2025 2:00 PM EDT Ancillary Procedure Orthopedic Surgery - [place] 160 175 [facility] [address] [place] [address] Calcific tendonitis of right shoulder Social History [...] PM EST documented as of this encounter Plan of Treatment Upcoming Encounters Date Type Department Care Team (Late st Contact Info) Description 02/26/2025 9:00 AM EDT Evaluation [facility] [place] 175 [facility] 350 [place] [phone] Milton Cuellar, PT 175 [place] [address] 04/07/2025 9:30 AM EDT Office Visit Orthopedic Surgery - [place] 175 [facility] 140 [place] [phone] Gladys Rojas MD 175 [facility] 140 [place] [phone] 05/06/2025 9:00 AM EDT Office Visit Orthopedic Surgery [facility] 160 175 [facility] 160 [place] [phone] Joi Hillman PA 175 [facility] 160 [place] [address] 05/28/2025 8:30 AM EDT Office Visit Adult Medicine [address] [phone] Kasandra Mehta MD [address] [place] [address] documented as of this encounter Goals Goal [...] and IADL's. LTG's 12 visits General Yes Tess, Cruzito, PT Note: [...] Procedure Name Priority Date/Time Associated Diagnosis Comments US INJ TENDON ORIGIN/INSERT SGL Routine 02/23/2025 1:58 PM EDT Calcific tendonitis of right shoulder documented in this encounter Results * US Inj Tendon Origin/insert Sgl (02/23/2025 [...] patients medical record. us Ann-Marie Casey MD IMG US PROCEDURES Final Result documented in this encounter Visit Diagnoses Diagnosis Calcific tendonitis of right shoulder documented in this encounter Care Teams Security Messenger Relationship Specialty Start Date End Date Kasandra Mehta MD [address] [place] [address] PCP - General 01/23/24 documented as of this encounter
--- OUTSIDE RECORDS SUMMARY | 2025-02-25 12:47 | XMS_ITS | Encounter Summary ---
Author Organization [employer] Address [address] [place] [address] Care Team Providers Care Form Setter Metal Road Forms Name Role Phone Kasandra Mehta MD Primary Care Prov ider Reason for Visit * Imaging (Routine) - Pending Review Specialty Diagnoses / Procedures Referred By Contac t Referred To Contact Radiology Diagnoses Calcific tendonitis of right shoulder Procedures US Guided Ndl Plcmnt Ann-Marie Casey MD 175 [facility] [address] [place] [address] Phone: tel: fax: Referral ID Status Reason Start Date Expiration Date V isits Requested Visits Authorized [id number] Pending Review 02/23/2025 02/23/2026 1 1 Encounter Details Date Type Department Care Team (Latest Contact Info) Description 02/23/2025 2:05 PM EDT Ancillary Procedure Orthopedic Surgery - [place] 160 175 [facility] [address] [place] [address] Calcific tendonitis of right shoulder Social History [...] Info) Description 02/26/2025 9:00 AM EDT Evaluation [facility] 175 [facility] 350 [place] [phone] Milton Cuellar, PT 175 [place] [address] 04/07/2025 9:30 AM EDT Office Visit Orthopedic Surgery - [place] 175 [facility] 140 [place] [phone] Gladys Rojas MD 175 [facility] 140 [place] [phone] 05/06/2025 9:00 AM EDT Office Visit Orthopedic [facility] 160 175 [facility] 160 [place] [phone] Joi Hillman PA 175 [facility] 160 [place] [address] 05/28/2025 8:30 AM EDT Office Visit Adult [address] [phone] Kasandra Mehta MD [address] [place] [address] Pending Results Name Type Priority Associated Diagnoses Date /Time US Guided Ndl Plcmnt Imaging Routine Calcific tendonitis of right shoulder 02/23/2025 1:58 PM EDT documented as of this encounter Goals Goal [...] as of this encounter Visit Diagnoses Diagnosis Calcific tendonitis of right shoulder documented in this encounter Care Teams Form Setter Metal Road Forms Relationship Specialty Start Date End Date Kasandra Mehta MD [address] [place] [address] PCP - General 01/23/24 documented as of this encounter
--- OUTSIDE RECORDS SUMMARY | 2025-02-25 12:47 | XMS_ITS | Clinical Summary ---
Author Organization [employer] Address [address] [place] [address] [address] [place] [address] Care Team Providers Care Software Development Specialist Name Role Phone Unavailable Primary Care Provider [...] Description 12/08/2024 2:15 PM EST Office Visit [facility] [address] [place] [address] Juan Tellez 12/07/2024 Travel from Last 3 Months Immunizations Name Administration [...] Description 05/11/2025 10:00 AM EDT Office Visit [facility]ULT [facility] [address] [place] [address] Radha Hackett [address] [place] [address] Health Maintenance Due Date Last Done Comments CT Colonography 1957 Colonoscopy 1957 Colorectal Cancer Screening 1957 Depression Screening 1957 FIT DNA/Cologuard 1957 FIT 1957 FOBT 1957 SDOH Screening 1957 Sigmoidoscopy 1957 Alcohol/Substance Use Screening 1969 Hepatitis C Screening 1975 Mammogram 1997 Pneumococcal Vaccine: 50+ Years (1 of 1 - PCV) 2007 DTaP/Tdap/Td Vaccines (1 - Tdap) 06/26/2017 06/25/2017, 02/13/2014 COVID-19 Vaccine ( - season) 2024 11/10/2021, 03/08/2021, 02/08/2021 Influenza [...] PROBLEM FOCUSED Routine 12/08/2024 2:15 PM EST PROPHYLAXIS - ADULT Routine 11/06/2024 3 :00 PM EST Dental calculus Generalized gingival recession PERIODIC ORAL EVALUATION - ESTABLISHED PATIENT Routine 11/06/2024 3:00 PM EST INTRAORAL - COMPLETE SERIES OF RADIOGRAPHIC IMAGES Routine 05/06/2024 11:00 AM EDT Acute gingival inflammation Periodontal disease Dental calculus Generalized gingival recession Gingival bleeding from Last 3 Months or Most Recently Relevant to Health Maintenance Insurance [facility] DENTAL - [facility] [phone]
--- OUTSIDE RECORDS SUMMARY | 2025-02-25 12:47 | XMS_ITS | Encounter Summary ---
Author Organization [facility] Address [address] [place] [address] Care Team Providers Care Rod Bending Machine Operator Name Role Phone Unavailable Primary Care Provider Unavailabl e Encounter Details Date Type Department Care Team (Latest Contact Info) Description 08/07/2022 Abstract [facility] CONVERSION[facility] Dental, Provider, DDS Social History [...] Description 05/11/2025 10:00 AM EDT Office Visit [facility]ULT [facility] [address] [place] [address] Sharad Hackettaris [address] [place] [address] documented as of this encounter Visit Diagnoses Not on filedocumented in this encounter
--- OUTSIDE RECORDS SUMMARY | 2025-02-25 12:47 | XMS_ITS | Encounter Summary ---
Author Organization [employer] Address [address] [facility] 7t [place] [address] Care Team Providers Care Self Propelled Mining Machine Operator Name Role Phone Unavailable Primary Care Provider Unavailabl e Encounter Details Date Type Department Care Team (Late st Contact Info) Description 05/25/2023 Telephone [facility] MEDICINE [address] [place] [address] Rosario Santoyo LPN Social History Tobacco Use [...] 05/11/2025 10:00 AM EDT Office Visit [facility] ADULT DENTAL [address] [place] [address] Radha Hackett [address] [place] [address] documented as of this encounter Visit Diagnoses Not on filedocumented in this encounter
--- OUTSIDE RECORDS SUMMARY | 2025-02-25 12:47 | XMS_ITS | Encounter Summary ---
Author Organization [facility] Address [address] [place] [address] Care Team Providers Care Paperboard Boxes Estimator Name Role Phone Kasandra Mehta MD Primary Care Prov ider Reason for Referral * Orthopedic (Routine) - Pending Review Specialty Diagnoses / Procedures Referred By Charles t Referred To Contact Orthopedic Surgery / Orthopaedic Surgery Diagnoses Calcific tendonitis of right shoulder Procedures L Inj/Asp: R subcoracoid bursa Ann-Marie Casey MD [address] [facility] [address] [place] [address] Phone: tel: fax: Referral ID Status Reason Start Date Expiration Date V isits Requested Visits Authorized [id number] Pending Review 02/23/2025 02/23/2026 1 1 * Imaging (Routine) - Pending Review Specialty Diagnoses / Procedures Referred By Contbry t Referred To Contact Radiology Diagnoses Calcific tendonitis of right shoulder Procedures US Guided Ndl Plcmnt Ann-Marie Casey MD [address] [facility] [address] [place] [address] Phone: tel: fax: Referral ID Status Reason Start Date Expiration Date V isits Requested Visits Authorized [id number] Pending Review 02/23/2025 02/23/2026 1 1 * Imaging (Routine) - Pending Review Specialty Diagnoses / Procedures Referred By Charles reyes Referred To Contact Radiology Diagnoses Calcific tendonitis of right shoulder Procedures US Inj Tendon Origin/insert Sgl Ann-Marie Casey MD 175 [facility] [address] [place] [address] Phone: tel: fax: Referral ID Status Reason Start Date Expiration Date V isits Requested Visits Authorized [id number] Pending Review 02/23/2025 02/23/2026 1 1 Reason for Visit * Reason Comments Injections Right shoulder injec tion Encounter Details Date Type Department Care Team (Latest Contact Info) Description 02/23/2025 2:00 PM EDT Procedure visit Orthopedic Surgery - [place] [address] [address] Ann-Marie Casey MD [address] [address] Calcific tendonitis of right shoulder (Primary Dx) Social History Tobacco Use Types [...] PM EST documented as of this encounter Last Filed Vital Signs Vital Sign Reading Time Taken Comments Blood Pressure - - Pulse - - Temperature - - Respiratory Rate - - Oxygen Saturation - - Inhaled Oxygen Concentration - - Weight 73.9 kg (163 lb) 02/23/2025 1:40 PM EDT Height 160 cm (5' 2.99 ) 02/23/2025 1:40 PM EDT Body Mass Index 28.88 02/23/2025 1:40 PM EDT documented in this encounter Progress Notes * Ann-Marie Casey MD - 02/23/2025 2:00 PM EDTAssociated Order(s): Injection tendon or ligament; L Inj/Asp: R subcoracoid bursa Post-Procedure Diagnose(s): Calcific tendonitis of right shoulder Emma Prater CC: Chief Complaint Patient presents with Injections Right shoulder injection HPI: This is a 69 y.o. -year-old female referred [facility] by Dr. Claudio Tafoya to discuss ultrasound-guided barbotage of right shoulder calcific tendinitis. She has had right shoulder pain for over a year. X-rays done showed calcific tendinosis. She has had multiple corticosteroid injections in the past which helped temporarily. ROS: Constitutional: no fever Musculoskeletal: see HPI Skin: no rash Neurologic: negative for headache, dizziness The remainder of the systems is noncontributory PMH: Patient Active Problem List Diagnosis Date Noted Calcific tendonitis of right shoulder 01/09/2025 Surgery follow-up 01/09/2025 Diabetes mellitus due to underlying condition with hyperosmolarity without coma, without long-term current use of insulin ([facility]) 07/25/2024 De Quervain's tenosynovitis 07/25/2024 Postoperative wound infection 07/17/2023 Cervical cord compression with myelopathy ([facility]) 01/08/2023 Left carpal tunnel syndrome 02/28/2022 Trigger finger, right ring finger 12/13/2021 PSH: Past Surgical History: Procedure Laterality Date APPENDECTOMY PROCEDURE: HISTORICAL APPENDECTOMY CARPAL TUNNEL RELEASE CERVICAL LAMINECTOMY HAND SURGERY Right PROCEDURE: HISTORICAL HAND SURGERY; COMMENT: Carpal tunnel release x2, 1st dorsal compartment release, trigger thumb & index finger release HAND SURGERY Left PROCEDURE: HISTORICAL HAND SURGERY; COMMENT: Carpal tunnel release x3, long & ring trigger finger release OTHER SURGICAL HISTORY 01/16/2023 PROCEDURE: TN ARTHRD ANT INTERDY CERVCL BELW C2 EA ADDL NTRSPC; COMMENT: C3-4 ACDF, Dr. Mckeon OTHER SURGICAL HISTORY PROCEDURE: HISTORY OTHER; COMMENT: Bladder left SPINE SURGERY TUBAL LIGATION PROCEDURE: HISTORICAL TUBAL LIGATION Medications: Current Outpatient Medications: albuterol 0.63 mg/3 mL nebulizer solution, INHALE 3 ML 4 TIMES A DAY NEEDED FOR SHORTNESS OF BREATH OR WHEEZING, Disp: , Rfl: empagliflozin (Jardiance) 25 mg tablet, Take 1 tablet (25 mg total) by mouth daily., Disp: , Rfl: esomeprazole (NexIUM) [address] capsule, Take 1 capsule (20 mg total) by mouth 1 (one) time each daybefore breakfast. Do not open capsule., Disp: , Rfl: hydrOXYzine pamoate (VISTARIL) 25 mg capsule, Take 1 capsule (25 mg total) by mouth., Disp: , Rfl: insulin aspart (NovoLOG Flexpen U-100 Insulin) 100 unit/mL (3 mL) injection pen, , Disp: , Rfl: insulin glargine (LANTUS) 100 unit/mL injection, Inject under the skin., Disp: , Rfl: insulin infusion set-cartridge combo pack, , Disp: , Rfl: melatonin 5 mg tablet, TAKE 2 TABLETS BY MOUTH EVERY DAY AT BEDTIME NEEDED, Disp: , Rfl: metFORMIN (GLUCOPHAGE) 1,000 mg tablet, Take 1 tablet (1,000 mg total) by mouth., Disp: , Rfl: mirtazapine (REMERON) 15 mg tablet, Take 1 tablet (15 mg total) by mouth., Disp: , Rfl: nitroglycerin (NITROSTAT) 0.4 mg SL tablet, Place 1 tablet (0.4 mg total) under the tongue., Disp: , Rfl: oxyCODONE (ROXICODONE) 5 mg immediate release tablet, Take 1 tablet (5 mg total) by mouth every 4 (four) hours if needed for severe pain for up to 10 doses. Max Daily Amount: 30 mg (Patient not taking: Reported on 02/02/2025), Disp: 6 each, Rfl: 0 semaglutide (Ozempic) 1 mg/dose (4 mg/3 mL) injection pen, Inject 1 MG SUBCUTANEOUSLY EVERY 7 DAYS IN THE ABDOMEN, THIGHS OR UPPER ARM. ROTATE INJECTION SITES., Disp: , Rfl: Allergies: No Known Allergies SHx: Social History Tobacco Use Smoking status: Former Current packs/day: 0.00 Types: Cigarettes Quit date: 11/26/1999 Years since quittin.2 Smokeless tobacco: Never Substance Use Topics Alcohol use: No FHx: Family History Problem Relation Name Age of Onset Lung cancer Mother Dementia Father Liver cancer Brother Physical Exam: Visit Vitals Ht 1.6 m (62.99 ) Wt 73.9 kg (163 lb) BMI 28.88 kg/m?? OB Status Postmenopausal Smoking Status Former BSA 1.77 m?? Gen: No acute distress. Pleasant Eyes: PERRL, EOMI ENT: Mucous membranes moist Resp:Normal respiratory effort Lymphatics: No noted lymphadenopathy MSK: RIGHT Inspection: Normal-appearing skin. Palpation: Tenderness around the greater tuberosity. ROM: Active 160/70/L5 Passive 180/80/L1 Strength: 4/5 supraspinatus. Pain to resisted testing. 5/5 infraspinatus. 5/5 subscapularis. Special Tests: Positive Neer and positive Mckoy sign. Neurovascular: Sensation to light touch: Intact and symmetric. DTR: Intact and symmetric. Peripheral pulses: Intact and symmetric. Cap. Refill: brisk. Radiographic/Imaging: XR Shoulder 2+ Views Right AP, true AP, axillary, scapular Y view of the right shoulder was obtained on 01/09/2025. There are no prior images available for comparison. Patient is notably osteopenic throughout. What is most notable on the AP view is that the patient has a calcific mass in the subacromial space consistent with calcific tendinitis. Glenohumeral joint is well-maintained. There is no evidence of any subchondral cysts, joint space narrowing, or osteophyte formation. There are no fractures or concerning lytic lesions. Impression: Evidence of calcific tendinitis right subacromial space All images are stored and permanently retrievable Assessment: 1) Right shoulder calcific tendinosis: I reviewed risks and benefits of ultrasound-guided barbotageof calcific tendinosis. Also discussed follow-up corticosteroid injection of the subacromial bursa to reduce risk of calcific bursitis. She agrees and wishes to proceed. Injection tendon or ligament for (Rotator cuff calcific tendonosis) Indications: pain Details: 22 G needle, (anterior) approach (guidance: US guided) Medications: 4 mL lidocaine 1 % Aspirate: 0 mL Outcome: tolerated well, no immediate complications Informed Consent: Laterality: Right Relevant images/test results available and reviewed: yes Health status cleared: Yes Procedure/treatment, purpose, treatment alternatives, risks/potential complications and benefits explained: yes Patient questions answered: yes Patient agrees, verbalizes understanding, and wants to proceed: yes Consent given by: Patient Informed consent discussion completed by Physician/HELENA with patient: Verbal Pre-procedure timeout performed: yes L Inj/Asp: R subcoracoid bursa Indications: pain Details: 22 G needle, anterior approach Medications: 3 mL lidocaine 1 %; 40 mg triamcinolone acetonide 40 mg/mL Outcome: tolerated well, no immediate complications Informed Consent: Laterality: Right Relevant images/test results available and reviewed: yes Health status cleared: Yes Procedure/treatment, purpose, treatment alternatives, risks/potential complications and benefits explained: yes Patient questions answered: yes Patient agrees, verbalizes understanding, and wants to proceed: yes Consent given by: Patient Informed consent discussion completed by Physician/HELENA with patient: Verbal Pre-procedure timeout performed: yes Plan: 1) Advised to take it easy for the next 24 to 48 hours. 2) May ice and use Tylenol or NSAIDs for postinjection soreness 3) Advised to call the office for any severe increase in pain, redness, swelling or bruising. 4) unfortunately due to density of calcium was not able to aspirate any debris. 5) follow-up with Dr. Claudio Tafoya. If this procedure is not effective may consider referral to Dr.Lee Sims in [place] for Tenex debridement versus debridement in the OR. All of the patient's questions were answered. The patient understand and feels comfortable with thecurrent care plan. Thanks for allowing me to be a part of the patient's care team! Please feel free to contact me for any reason. Sincerely, Ann-Marie Casey MD. ON 02/23/2025 at 2:23 PM EDT documented in this encounter Plan of Treatment Upcoming Encounters Date Type Department Care Team (Late st Contact Info) Description 02/26/2025 9:00 AM EDT Evaluation [facility] - [place] 175 [facility] [address] [place] [address] Milton Cuellar, PT 175 [place] [address] 04/07/2025 9:30 AM EDT Office Visit Orthopedic Surgery - [place] [address] [facility] [address] [place] [phone] Gladys Rojas MD [address] [facility] [address] [place] [phone] 05/06/2025 9:00 AM EDT Office Visit Orthopedic Surgery - [place] 160 175 [facility] 160 [place] [phone] Joi Hillman PA 175 [facility] [place] [address] [place] [address] 05/28/2025 8:30 AM EDT Office Visit Adult Medicine [facility] [address] [place] [address] Kasandra Mehta MD [address] [place] [address] Pending Results Name Type Priority Associated Diagnoses Date /Time US Guided Ndl Plcmnt Imaging Routine Calcific tendonitis of right shoulder 02/23/2025 1:58 PM EDT Scheduled Orders Name Type Priority Associated Diagnoses Orde r Schedule US Guided Ndl Plcmnt Imaging Routine Calcific tendonitis of right shoulder Expected: 02/23/2025, Expires: 02/23/2026 documented as of this encounter Goals Goal [...] Procedure Name Priority Date/Time Associated Diagnosis Comments TN ARTHROCENTESIS/ASPI RATION/INJECTION MAJOR JOINT/BURSA W/O U/S GUIDANCE Routine 02/23/2025 2:00 PM EDT Calcific tendonitis of right shoulder INJECTION TENDON OR LIGAMENT Routine 02/23/2025 2:00 PM EDT Calcific tendonitis of right shoulder documented in this encounter Results * TN ARTHROCENTESIS/ASPIRATION/INJECTION MAJOR JOINT/BURSA W/O U/S GUIDANCE (02/23/2025 [...] Visit Diagnoses Diagnosis Calcific tendonitis of right shoulder- Primary Calcific tendonitis of right shoulder documented in this encounter Administered Medications Inactive Administered Medications - up to 3 most recent administrations Medication Order MAR Action Action Date Dose Rate Site lidocaine (XYLOCAINE) 1 % injection 3 mL 3 mL, injection, Once PRN Procedure, Starting on Sun02/23/25 at 1400, For 1 doseIndications:Calcific tendonitis of right shoulder Given 02/23/2025 2:00 PM EDT 3 mL lidocaine (XYLOCAINE) 1 % injection 4 mL 4 mL, injection, Once PRN Procedure, Starting on Sun02/23/25 at 1400, For 1 doseIndications:Calcific tendonitis of right shoulder Given 02/23/2025 2:00 PM EDT 4 mL triamcinolone acetonide (KENALOG-40) 40 mg/mL injection 40 mg 40 mg, intra-articular, Once PRN Procedure, Starting on Sun02/23/25 at 1400, For 1 doseIndications:Calcific tendonitis of right shoulder Given 02/23/2025 2:00 PM EDT 40 mg documented in this encounter Care Teams Paperboard Boxes Estimator Relationship Specialty Start Date End Date Kasandra Mehta MD [address] [place] [address] PCP - General 01/23/24 documented as of this encounter
--- OUTSIDE RECORDS SUMMARY | 2025-02-25 12:47 | XMS_ITS | Encounter Summary ---
Author Organization [employer] Address [address] [facility] [address] [place] [address] Care Team Providers Care Heavy Duty Mechanic Farm Equipment Name Role Phone Unavailable Primary Care Provider Unavailabl e Encounter Details Date Type Department Care Team (Latest Contact Info) Description 03/23/2021 Abstract [facility] CONVERSIONS Dental, Provider, DDS Social History Tobacco [...] Description 05/11/2025 10:00 AM EDT Office Visit [facility] ADULT DENTAL [address] [place] [address] Sharad Hackettaris [address] [place] [address] documented as of this encounter Visit Diagnoses Not on filedocumented in this encounter
== END 2025-02-25 10:45 | disposition home or self-care (01) ==
LOC: HO.US 10:44
PROVIDERS: PCP Internal Medicine; Visit Provider Advanced Practice Midwife
DX: D21.9 Benign neoplasm of connective and other soft tissue, unspecified (principal)
CPT/HCPCS: 76830; 76856

== ENCOUNTER → 2025-02-25 10:46 | Outpatient (BNV) | payer OTHER, SELFPAY | PROVIDERS: PCP Internal Medicine; Visit Provider Radiology Diagnostic Radiology | DX: D25.9 Leiomyoma of uterus, unspecified (principal) | CPT/HCPCS: 76830; 76856 ==

== ENCOUNTER 2025-03-05 07:56 | Outpatient (AMB) | payer OTHER, SELFPAY ==
--- OUTSIDE RECORDS SUMMARY | 2025-03-05 08:00 | XMS_ITS | Encounter Summary ---
Author Organization [employer] Address [address] [place] [address] Care Team Providers Care Journeyman Glazier Name Role Phone Kasandra Mehta MD Primary Care Prov ider Reason for Visit * Therapy (Routine) - Authorized Specialty Diagnoses / Procedures Referred By Contac t Referred To Contact Physical Therapy Diagnoses Calcific tendonitis of right shoulder Claudio Tafoya MD 175 [facility] 160 [place] [address] Phone: tel: fax: Referral ID Status Reason Start Date Expiration Date Visits Requested Visits Authorized [id number] Authorized Consult and Treat 02/02/2025 02/02/2026 15 15 Encounter Details Date Type Department Care Team (Late st Contact Info) Description 03/03/2025 7:30 AM EDT Treatment [facility] 175 [facility] [address] [place] [phone] Morgan Khan, GAMB CUTTER Calcific tendonitis of right shoulder (Primary Dx) [...] Progress Notes * Morgan Khan PTA - 03/03/2025 7:30 AM EDT [facility] - Outpatient PHYSICAL THERAPY DAILY TREATMENT NOTE - OP Date: 03/03/2025 Visit Number: [id number] Patient Name: Emma Prater : 1955 Age: 69 y.o. Gender: female Diagnosis: ICD-10-CM ICD-9-CM 1. Calcific tendonitis of right shoulder M75.31 726.11 Date of Onset/Surgery: 02/23/2025 Referring Provider: Claudio Tafoya MD Insurance: Payor: [facility] / Plan: [facility] CARE / Product Type: *No Product type* / Patient Identified by: Morgan Khan PTA Language: Bulgarian Medications: Current Outpatient Medications on File Prior [...] 30 mg (Patient not taking: Reported on 02/02/2025) 6 each 0 semaglutide (Ozempic) 1 mg/dose (4 mg/3 mL) injection pen Inject 1 MG SUBCUTANEOUSLY EVERY 7 DAYS IN THE ABDOMEN, THIGHS OR UPPER ARM. ROTATE INJECTION SITES. No current facility-administered medications on file prior to visit. Allergies: has No Known Allergies. Precautions: diabetic history of cerv fusion Fall risk: No SUBJECTIVE Subjective Report: pt reports she is feeling good today.. pt reports getting on injection on February 23 Chart Reviewed: Yes Pain Non today OBJECTIVE TREATMENT INTERVENTION: UBE x 6 min Standing scap row and shld ext x 20 with green tband (B) ER with green tband x 20 Shoulder morgan flex and abd x 20 each Wall slide shld flexion and abd x 15 each Passive shld ROM Gentle GH joint mobs x 5 min ASSESSMENT/Response to Treatment Good no complaints with treatment Patient Education: Education provided: Yes Education Provided To: Patient utilizing Explanation mode(s) of education Response to Education: Verbal Understanding PLAN POC Development/Review: No Change in the Plan of Care; Participants: Patient Total Treatment Time: 30 Modalities: Therapeutic procedures: Documentation completed by Morgan Khan PTA documented in this encounter Plan of Treatment Upcoming Encounters Date Type Department Care Team (Late st Contact Info) Description 03/06/2025 8:00 AM EDT Treatment [address] [address] Kurt Alford PTA 03/10/2025 7:30 AM EDT Treatment [address] [address] Reji Vázquez PTA 03/12/2025 7:30 AM EDT Treatment [address] [address] Reji Vázquez, GAMB CUTTER 03/16/2025 8:00 AM EDT Treatment [address] [address] Kurt Alford PTA 03/18/2025 8:00 AM EDT Treatment [facility] [address] [phone] Kurt Alford, GAMB CUTTER 03/23/2025 8:00 AM EDT Treatment [facility] [address] [phone] Kurt Alford, GAMB CUTTER 03/25/2025 9:00 AM EDT Treatment [facility] [address] [phone] Milton Cuellar, PT 175 [place] [address] 04/07/2025 9:30 AM EDT Office Visit Orthopedic [facility] [address] [phone] Gladys Rojas MD 175 [facility] [address] [place] [phone] 05/06/2025 9:00 AM EDT Office Visit Orthopedic [facility] [address] [phone] Joi Hillman PA [address] [address] 05/28/2025 8:30 AM EDT Office Visit Adult Medicine [address] [phone] Kasandra Mehta MD [address] [place] [address] documented as of this encounter Goals Goal Patient Goal Type Associated Problems Recent Progress Patient-Stated? Author PT STG x 8 visits from [facility] 02/26/2025 General Yes Milton Cuellar, PT Note: [] Pt will increase appleys scratch test IR to mid L spine, [] Pt will increase right shoulder abd active ROM to 115 degrees, [] Pt will increase right shoulder flexion active ROM to 140 degrees, [] Pt will decrease waking frequency to 1 a night due to pain PT LTG x 14 visits from [facility] 02/26/2025 General Milton Wiseman, PT Note: [] Pt will be able to reach back seat with right shoulder, [] Pt will wake < 2/wk due to shoulder pain, [] Pt will be able to reach top shelving with right UE in order to place/remove dishes or groceries [] Pt will be able to cook/prep meals without restrictions due to R shoulder pain documented as of this encounter Visit Diagnoses Diagnosis Calcific tendonitis of right shoulder- Primary documented in this encounter Care Teams Journeyman Glazier Relationship Specialty Start Date End Date Kasandra Mehta MD [address] [place] [address] PCP - General 01/23/24 documented as of this encounter
--- OUTSIDE RECORDS SUMMARY | 2025-03-05 08:00 | XMS_ITS | Encounter Summary ---
Author Organization [employer] Address [address] [facility] [address]t [place] [address] Care Team Providers Care Director Dance Name Role Phone Unavailable Primary Care Provider Unavailabl e Encounter Details Date Type Department Care Team (Latest Contact Info) Description 03/23/2021 Abstract [facility] CONVERSIONS Dental, Provider, DDS Social History Tobacco [...] Description 05/11/2025 10:00 AM EDT Office Visit [facility] ADULT DENTAL [address] [place] [address] Sharad Hackettaris [address] [place] [address] documented as of this encounter Visit Diagnoses Not on filedocumented in this encounter
--- OUTSIDE RECORDS SUMMARY | 2025-03-05 08:00 | XMS_ITS | Encounter Summary ---
Author Organization [employer] Address [address] [facility] 7t [place] [address] Care Team Providers Care Statistics Manager Name Role Phone Unavailable Primary Care Provider Unavailabl e Encounter Details Date Type Department Care Team (Latest Contact Info) Description 08/07/2022 Abstract [facility] CONVERSIONS Dental, Provider, DDS Social History [...] Description 05/11/2025 10:00 AM EDT Office Visit [facility] ADULT DENTAL [address] [place] [address] Sharad Hackettaris [address] [place] [address] documented as of this encounter Visit Diagnoses Not on filedocumented in this encounter
--- OUTSIDE RECORDS SUMMARY | 2025-03-05 08:00 | XMS_ITS | Data Portability ---
Author Organization [employer] [facility], [place] - [facility] Address [address] [place] [phone] Care Team Providers Care Hand Button Splitter Name Role Phone HIM CCA Referring Provider Assessment Encounter Date Assessment Date Assessment LastModified by Organization Details LastModified Time 03/10/2024 03/10/2024 I provided real -time medical direction via phone for this encounter, and was available for additional phone based assistance as needed. I have reviewed and agree with the Assessment and Plan as documented by the Real Estate Financial Analyst. We discussed the diagnostic uncertainty of home [...] to call 911- verbalized understanding of instruction Not available 03/10/2024 11:57:00 Plan of Treatment Reminders Order Date Submit Date Provider Last Modified By Organization Details Last Modified Time Details Appointments None recorded. Lab BMP, serum or plasma 2023 024 [email or web address] 0 [facility], [address] [place] [address], [phone] 4 12:01:00 rapid flu (A+B) 2023 024 [email or web address], [phone] 4 11:56:35 rapid SARS CoV 2 Ag, QL IA, respiratory specimen 2023 024 [email or web address] [address], [phone] 4 11:56:33 Referral None recorded. Procedures None recorded. [...] a BUN 15 Not Available Main - [address], [address] [place] [address] 03/10/2024 11:59:38 03/10/20 24 03/10/2024 BMP, serum or plasm a Ca Ionize d calciu m 1.17 Not Available [address], [address] [place] [address] 03/10/2024 11:59:38 03/10/20 24 03/10/2024 BMP, serum or plasm a CI- 108 Not Available Main - [address], [address] [place] [address] 03/10/2024 11:59:38 03/10/20 24 03/10/2024 BMP, serum or plasm a CRE 0.[address] [facility] - [address], [address] [place] [address] 03/10/2024 11:59:38 03/10/20 24 03/10/2024 BMP, serum or plasm a GLU 198 Not Available Main - [address], [address] [place] [address] 03/10/2024 11:59:38 03/10/20 24 03/10/2024 BMP, serum or plasm a K+ 3.9 Not Available Main - [address], [address] [place] [address] 03/10/2024 11:59:38 03/10/20 24 03/10/2024 BMP, serum or plasm a Na+ [address] [facility] - [address], [address] [place] [address] 03/10/2024 11:59:38 03/10/20 24 03/10/2024 BMP, serum or plasm a tCO2 [address] [facility] - [address], [address] [place] [address] 03/10/2024 11:59:38 03/10/20 24 03/10/2024 rapid SARS CoV 2 Ag, QL IA, respi rator y speci men rapid SARS CoV 2 Ag, QL IA, respiratory specimen negati ve Not Available Main - [facility] ed [address] [place] [address], [phone] 03/10/2024 11:31:16 03/10/20 24 03/10/2024 rapid flu (A+B) Flu negati ve Not Available Main - [facility] ed [address] [place] [address], [phone] 03/10/2024 11:31:14 Result Notes None recorded. Medical [...] Available Not Avai lable Comfort EZ Pen Weldon 33 gauge x 5/32 active Not Available Not Available Not Available Jardiance 25 mg tablet TAKE 1 TABLET BY MOUTH EVERY DAY active Not Available Not Available No t Available Trulicity 1.5 mg/0.5 mL subcutaneous pen injector INJECT ONE PEN (=1.5MG) SUBCUTANEOU SLY ONCE A WEEK DIRECTED active Not Available Not Available No t Available Pentips Pen Needle 32 gauge x 5/32 USE DIRECTED active Not Available Not Available [...] % 99 % 160.02 cm 98 [degF] 88178.7 2 g 18 /min 149 mm[Hg] 84 [...] SNOMED-CT Code Diagnosis ICD10 Code Diagnosis Note [id number] Liana Morris MD Main - [facility] [address] [place] [phone] 03/10/2024 11:29:39 03/10/2024 19:14:16 Influenza 6333828 J11.1 resolving other than persistent cough-want to [...] Red flags reviewed with patient Rib pain [id number] R07.8 1 From cough, no crepitance to [...] Bates Member ID Guarantor Name 03/10/2024 1 [facility] - DOS ON OR AFTER 2023 - DUAL ELIGIBLE - [facility] OPTIONS AND ONE CARE (MEDICARE REPLACEMENT/ADV ANTAGE - HMO) Emma Rodríguezgo [id number] Emma Prater Notes Date Note Type Note Provider Name and Address Organization Details Recorded Time 03/10/2024 text/html HPI: Member is 68 yo Palauan speaking female, who was treated at [facility] on 03/06/24 for Flu and reports [...] .................. .................. .................. .................. .................. .................. ............... Real Estate Financial Analyst Note From Reji Schaefer: Smartcare visit for female patient with cough and rib pain. Pt presents conscious and alert. client relationship manager utilized via phone. Pt states she was [...] Pt afebrile. Lung sounds clear. Consulted with [facility] who ordered covid and flu swabs, completed and both negative. [facility] ordered basic metabolic [...] They have come down. Currently via her CGM her blood sugar was 230. Her cough [...] to use MDI properly Liana Morris MD [address] [facility],[address], [place], [phone], [place] 03/10/2024 14:04:41 OBGyn Episode No OBEpisode recorded.
--- OUTSIDE RECORDS SUMMARY | 2025-03-05 08:00 | XMS_ITS | Clinical Summary ---
Author Organization [employer] Address [address] [place] [address] [address] [place] [address] Care Team Providers Care Nurse Obgyn Name Role Phone Unavailable Primary Care Provider [...] Description 12/08/2024 2:15 PM EST Office Visit [facility] [address] [place] [address] Juan Tellez 12/07/2024 Travel from Last 3 [...] Description 05/11/2025 10:00 AM EDT Office Visit [facility]ULT [facility] [address] [place] [address] Radha Hackett [address] [place] [address] Health Maintenance Due Date Last Done Comments [...] Most Recently Relevant to Health Maintenance Insurance [facility] DENTAL - [facility] [place] [address]
--- OUTSIDE RECORDS SUMMARY | 2025-03-05 08:00 | XMS_ITS | Clinical Summary ---
Author Organization [facility] Address [address] [place] [address] Phone Care Team Providers Care Dispatcher Radioactive Waste Disposal Name Role Phone Kasandra Mehta MD Primary [...] coma, without long-term current use of insulin ([facility] V24, [facility] V28) 07/25/2024 Assessment & Plan (11/27/2024 11:44 AM EST): poor control of diabetes. Patient will continue with yearly Podiatric and Ophthomologic evaluations.Will consider Angiotensin Converting Enzyme Inhibitor for renal protection. Continue Ozempic, lispro, glargine, Jardiance, and metformin. Encouraged to keep the appointments with the specialist. Patient had some blood tests with her wellness educator. A1c: 7.4 De Quervain's tenosynovitis 07/25/2024 Postoperative wound infection 07/17/2023 Cervical cord compression wi th myelopathy ([facility] V24, [facility] V28) 01/08/2023 Overview (09/14/2024): Last Assessment & Plan: Ms. [...] Encounters Date Type Department Care Team Description 03/03/2025 7:30 AM EDT Treatment [address] [phone] Morgan Khan, EXTRUSION DIE REPAIRER Calcific tendonitis of right shoulder (Primary Dx) 02/26/2025 9:00 AM EDT Evaluation [address] [phone] Milton Cuellar, PT Chronic right shoulder pain (Primary Dx); Calcific tendonitis of right shoulder 02/23/2025 2:05 PM EDT Ancillary Procedure Orthopedic Surgery [facility] [address] [facility] [address] [place] [phone] Calcific tendonitis of right shoulder 02/23/2025 2:00 PM EDT Ancillary Procedure Orthopedic Surgery - [facility] 160 [address] [facility] [address] [place] [phone] Calcific tendonitis of right shoulder 02/23/2025 2:00 PM EDT Procedure visit Orthopedic [facility] [address] [facility] [address] [place] [phone] Ann-Marie [place] MD Calcific tendonitis of right shoulder (Primary Dx) 02/02/2025 11:00 AM EDT Consult Orthopedic Surgery [facility] 160 [address] [facility] [address] [place] [phone] Claudio Tafoya MD Calcific tendonitis of right shoulder (Primary Dx) 01/19/2025 12:30 PM EST Treatment Outpatient Rehabilitation - [address] [phone] Cruzito Pulido, PT Chronic right shoulder pain (Primary Dx) 01/12/2025 8:30 AM EST Treatment Outpatient Rehabilitation - [address] [phone] Morgan Khan, EXTRUSION DIE REPAIRER Chronic right shoulder pain (Primary Dx) 01/09/2025 8:15 AM EST Office Visit [facility] 175 [facility] [address] [place] [address] Gladys Rojas MD Surgery follow-up (Primary Dx); De Quervain's tenosynovitis; Calcific tendonitis of right shoulder 01/06/2025 8:30 AM EST Treatment Outpatient Rehabilitation - [address] [phone] Cruzito Pulido, PT Chronic right shoulder pain (Primary Dx) 01/02/2025 8:00 AM EST Treatment Outpatient Rehabilitation - [address] [phone] Morgan Khan, EXTRUSION DIE REPAIRER Chronic right shoulder pain (Primary Dx) 12/29/2024 8:14 AM EST - 12/29/2024 11:59 PM EST Hospital Encounter [facility] - [address] [phone] Osteoporosis screening Discharge Disposition: Home or Self Care 12/22/2024 8:00 AM EST Treatment Outpatient Rehabilitation - [address] [phone] Morgan Khan, EXTRUSION DIE REPAIRER Chronic right shoulder pain (Primary Dx) 12/15/2024 10:30 AM EST Evaluation Outpatient Rehabilitation - [address] [phone] Cruzito Pulido, PT Chronic right shoulder pain (Primary Dx) 12/15/2024 Plan of Care Documentation Outpatient Rehabilitation - [address] [phone] from Last 3 Months Immunizations Name Administration [...] finger release OTHER SURGICAL HISTORY 01/16/2023 PROCEDURE: MS ARTHRD ANT INTERDY CERVCL BELW C2 EA ADDL NTRSPC; COMMENT: C3-4 ACDF, Dr. Mckeon OTHER SURGICAL HISTORY PROCEDURE: HISTORY OTHER; COMMENT: Bladder left APPENDECTOMY PROCEDURE: HISTORICAL APPENDECTOMY TUBAL LIGATION PROCEDURE: HISTORICAL TUBAL LIGATION SPINE SURGERY CARPAL TUNNEL RELEASE CERVICAL LAMINECTOMY Medical History Medical History Date Comments Asthma DX:Asthma Diabetes mellitus (CMS/HCC V24, CMS/HCC V28) DX:Diabetes mellitus (HCC) Depression DX:Depression Anxiety DX:Anxiety Arthritis [...] Info) Description 03/06/2025 8:00 AM EDT Treatment [facility] [address] [phone] Kurt Alford, HUNTER 03/10/2025 7:30 AM EDT Treatment [facility] [address] [phone] Reji Vázquez, EXTRUSION DIE REPAIRER 03/12/2025 7:30 AM EDT Treatment [facility] [address] [phone] Reji Vázquez, EXTRUSION DIE REPAIRER 03/16/2025 8:00 AM EDT Treatment [facility] [address] [phone] Kurt Alford, HUNTER 03/18/2025 8:00 AM EDT Treatment [facility] [address] [phone] Kurt Alford, EXTRUSION DIE REPAIRER 03/23/2025 8:00 AM EDT Treatment [facility] [address] [phone] Kurt Alford, EXTRUSION DIE REPAIRER 03/25/2025 9:00 AM EDT Treatment [facility] [address] [phone] Milton Cuellar, PT 175 [place] [address] 04/07/2025 9:30 AM EDT Office Visit [facility] [address] [phone] Gladys Rojas MD [address] [phone] 05/06/2025 9:00 AM EDT Office Visit [facility] 160 175 [facility] [address] [place] [phone] Joi Hillman PA [address] [address] 05/28/2025 8:30 AM EDT Office Visit Adult Medicine [address] [phone] Kasandra Mehta MD [address] [place] [address] Health Maintenance Due Date Last Done Comments [...] age to complete this topic Meningococcal B Vaccine Aged Out No l onger eligible based on patient's age to complete this topic RSV Immunization Patients Under 20 months Aged Out No longer eligible based on patient's age to complete this topic Varicella Vaccines Aged Out No longer eligible based on patient's age to complete this topic Goals Goal Patient Goal Type Associated Problems Recent Progress Patient-Stated? Author PT STG x 8 visits from [facility] 02/26/2025 General Yes Alisa, Jm, PT Note: [] Pt will increase appleys scratch test IR to mid L spine, [] Pt will increase right shoulder abd active ROM to 115 degrees, [] Pt will increase right shoulder flexion active ROM to 140 degrees, [] Pt will decrease waking frequency to 1 a night due to pain PT LTG x 14 visits from [facility] 02/26/2025 General No Milton Cuellar, PT Note: [] Pt will be able to reach back seat with right shoulder, [] Pt will wake < 2/wk due to shoulder pain, [] Pt will be able to reach top shelving with right UE in order to place/remove dishes or groceries [] Pt will be able to cook/prep meals without restrictions due to R shoulder pain Procedures Procedure Name Priority Date/Time Associated Diagnosis Comments MS ARTHROCENTESIS/ASPIR ATION/INJECTION MAJOR JOINT/BURSA W/O U/S GUIDANCE [...] EST from Last 3 Months Results * MS ARTHROCENTESIS/ASPIRATION/INJECTION MAJOR JOINT/BURSA W/O U/S GUIDANCE (02/23/2025 [...] patients medical record. us Ann-Marie [place] MD IM US PROCEDURES Final Result * MG Mammo Digital Diagnostic w Abebe bilat (01/20/2025 1:09 PM EST) Anatomical Region Laterality Modality Breast Bilateral Mammography Kasandra Mehta MD IMG BI PROCEDURES Final [...] (World Health Organization Fracture Risk Assessment) [facility] Department of Internal Medicine recommends using [...] alternative screening schedule based on lucy Islas., [facility] December 14, 2011 for patients [...] Signed Date: 12/29/2024 10:36 ET Workstation ID: [id number] Transcribed By: Self Edit Transcribed Date: 12/29/2024 [...] (World Health Organization Fracture Risk Assessment) [facility] Department of Internal Medicine recommendsusing National [...] alternative screening schedule based on lucy Islas., [facility] for patients with osteopenia (based on [...] 12/29/2024 10:33 ET Assigned Physician: Ann Marie Torbiio Reviewed and Electronically Signed By: Ann Marie Toribio Signed Date: 12/29/2024 10:36 ET Workstation ID: [id number] Transcribed By: Self Edit Transcribed Date: 12/29/2024 10:33 ET us Kasandra Mehta MD IMG DXA PROCEDURES Final Result * US Abdomen Complete (12/18/2024 3:12 PM EST) Anatomical Region Laterality Modality Body Ultrasound us Historical Provider MD URIOSTEGUI US PROCEDURES Final R esult from Last 3 Months Insurance [facility] MEDICARE Member Subscriber Plan / Payer (Ef fective 2022-Present) Name:Emma Prater Relation to Subscriber:Self Name:Emma Prater Payer ID:[id number] Group ID:[id number] Type:Not on file Address: [place] [address] [phone] Care Teams Dispatcher Radioactive Waste Disposal Relationship Specialty Start Date End Date Kasandra Mehta MD [address] [place] [id number] PCP - General 01/23/24
--- OUTSIDE RECORDS SUMMARY | 2025-03-05 08:00 | XMS_ITS | Encounter Summary ---
Author Organization [employer] Address [address] [facility] [address] [place] [address] Care Team Providers Care Termite Control Representative Name Role Phone Unavailable Primary Care Provider Unavailabl e Encounter Details Date Type Department Care Team (Late st Contact Info) Description 05/25/2023 Telephone [facility] MED[facility] [address] [place] [address] Rosario Santoyo LPN Social History Tobacco Use [...] Description 05/11/2025 10:00 AM EDT Office Visit [facility] ADULT DENTAL [address] [place] [address] Radha Hackett [address] [place] [address] documented as of this encounter Visit Diagnoses Not on filedocumented in this encounter
[2025-03-05 08:33] VITALS: BMI 28.6
--- NOTE | 2025-03-05 08:33 | A.OFFVIS_ITS ---
VS Expanded 03/05/25 08:33 Height 5 ft 3 in Weight 161 lb 6.054 oz BMI 28.6 Intake Visit Reasons: T2DM Allergies No Known Allergies Allergy (Verified 12/11/24 08:34) Nutrition Presentation Details: Pt presents for MNT f/u for T2DM Pt reports increased appetite in the evening choosing empty calorie foods , per BG phone katherine highest bg after 6 pm has questions regarding dm meds for weight loss and was advised to discuss medication with Jenny Gooden at the next appointment in 03/11/25 BS Monitoring Most Recent Diabetes Results: No Data to Display PFSH Medical History Fibroids PMB (postmenopausal bleeding) Osteopenia Dyslipidemia Diabetic polyneuropathy associated with type 2 diabetes mellitus Diabetes type 2, uncontrolled Diabetes 1.5, managed as type 1 Panic anxiety syndrome Hospital discharge follow-up Vitamin D deficiency Carpal tunnel syndrome Incontinence Hemorrhoids Tubal occlusion Insomnia Elevated cholesterol Depression Hypertension IDDM (insulin dependent diabetes mellitus) Surgical History Hx of cataract surgery History of neck surgery History of surgery History of colonoscopy History of hemorrhoidectomy History of carpal tunnel release History of bladder surgery S/P sinus surgery Hx of breast reduction, elective Hx of appendectomy H/O tubal ligation History of heart artery stent Family History Father No problems noted. Mother Heart disease Lung cancer Brother Liver cancer Brother Renal cancer HTN (hypertension) Diabetes mellitus Maternal Grandfather No problems noted. Maternal Grandmother No problems noted. Paternal Grandfather No problems noted. Paternal Grandmother No problems noted. Maternal Uncle Diabetes mellitus Paternal Uncle Diabetes mellitus Son No problems noted. Daughter No problems noted. Social History Housing: House Alcohol intake: current Alcohol intake frequency: holidays/special occasions only Patient Tobacco Use Status: Former Tobacco user e-Cigarette/Vaping Use: Never Used service: No Current occupational status: disabled Current occupation: right hand dominant Sexual orientation: Straight/Heterosexual Gender identity: Female Cognitive needs: No Hearing needs: No Vision needs: Yes Female Reproductive History Menstrual Age of Menarche: 14 Assessment & Plan Assessment & Plan (1) Diabetic polyneuropathy associated with type 2 diabetes mellitus: Code(s): E11.42 - Type 2 diabetes mellitus with diabetic polyneuropathy Category: Medical Plan: Rec 1500 ADA meal plan? (40% carb, 30% fat, 30% prot) Used wt : , 73 kg (03/20) Rec fluid as per 25 ml/kg bw:? 1800 Rec NA? 1500 mg/d REc fiber: 25 g /d Educate patient on: (R= Reviewed, V = verbalizes understanding N/R= Needs review N/A= not applicable) * Food sources of carbohydrates and serving adequate serving sizes : R V * Difference between complex carbohydrates and simple carbohydrates, role of fiber: R V * Differences between fats (MUFA/PUFA/saturated fats, trans fats) and food sources of various fats: R V * Food sources of sodium and salt and healthy modifications for heart health and kidney health: R v * Vitamins and minerals: R V * How to interpret food labels: R V * Healthy Plate method concept: R V * Physical activity: benefits and precaution: R V * REviewed empty calorie foods vs nutrient dense foods and BG and overall health: R, V Patient Instructions: Resume choosing low sugar snack for midafternoon snack choose a fruit with peanu t butter or yogurt - comienza de nuevo a reducir las meriendas azucaradas , escoge papi fruta con mantequilla de haydee, o yogurt hilary Carry a water bottle iw you- carga con papi botella de agua contigo Coding Level of Care Code Nutr Indiv Subseq (57485) Diagnoses Diabetic polyneuropathy associated with type 2 diabetes mellitus E11.42 Time Spent (min) 25
== END 2025-03-05 09:15 | disposition home or self-care (01) ==
LOC: HO.ENCR 07:56
PROVIDERS: PCP Internal Medicine; Visit Provider Dietitian, Registered
DX: E11.42 Type 2 diabetes mellitus with diabetic polyneuropathy (principal)

== ENCOUNTER → 2025-03-05 07:56 | Outpatient (BNVA) | payer OTHER, SELFPAY | PROVIDERS: PCP Internal Medicine; Visit Provider Dietitian, Registered | DX: E11.42 Type 2 diabetes mellitus with diabetic polyneuropathy (principal) | CPT/HCPCS: 97803 ==

== ENCOUNTER 2025-04-08 07:57 | Outpatient (AMB) | payer OTHER, SELFPAY ==
--- NOTE | 2025-04-08 07:06 | A.OFFVIS_ITS ---
Vital Signs 04/08/25 08:16 Height 5 ft 3 in Weight 160 lb 14.999 oz BMI 28.5 BP 116/60 Blood Pressure Location Rt brachial Position Sitting Pulse 96 Pulse Source Pulse Oximeter Pulse Oximetry (%) 97 Oxygen Delivery Method Room Air Intake Visit Reasons: T2DM Intake Note: Patient presents today for a follow-up on Type 1.5 Manage has Tyoe 1 Diabetes Mellitus: Last Diabetic eye exam was on: DUE Last Podiatry exam was on: Patient does not see a Association Executive Most recent HbA1c: 7.1%, 04/08/2025 Random Glucose- 171 mg/dL, Today Cab Starter Required: Yes Cab Starter Language: Adjunct Lecturer Services: Cab Starter Offered & Declined Cab Starter Name: [facility] Accompanied by: Self / Same As Patient Allergies No Known Allergies Allergy (Verified 04/08/25 08:43) HPI Comments Details: senior sales operations manager used for visit. Hodan Patient is a 69-year-old female with DM type 2 last seen in Endocrinology 12/11/24. Hemoglobin A1c 7.1% on 04/08/25, 6.8% on 12/11/2024 down from 8.8% 07/22/24 Past medical history: Diabetes type 2, hypertension, hyperlipidemia, osteopenia, sleep apnea, carpal tunnel syndrome. CAD status post stent, depression Micro and macrovascular complications: Neuropathy, CAD Diabetes medications: Jardiance 25 mg daily Ozempic 2 mg weekly metformin 1000mg bid Lantus 20 units Humalog 10 units before meals three times per day Freestyle zahra sensor 3 average glucose: 130 14 day continuous glucose sensor report reviewed Glucose Management indicator 6.4 % TIme in ranges: One % very high (above 250) 9 % high (181-250) 88 % in range (70-180] 2 % low (69-55) 0 % very low (below 54) 29.4% Glucose variability(target <36%) Interpretation of CGMS glucose in excellent control with mild lows at 12 noon She reports she has been awakened in the middle of the night almost every night with a low sugar alarm when she rechecks the sugar with a fingerstick iit is between 128 and 140 Hypoglycemia: Denies Hyperglycemia: none reent has some numbness and tingling in feet at times she is followed by Podiatry on a regular basis No tobacco, alcohol 1 beer on Sunday and Sunday Exercise: walking Sunday through Sunday 30 minutes Info Specialist - CDE education: assistant financial accountant has been seeing Brianna Gutierrez RD and has follow-up appointment No retinopathy: Ophthalmology evaluation:12/19 No Nephropathy: 11/17/2024 eGFR>60 07/2024 microalbumin 11 Other specialists: cardiology She had elevated liver function tests earlier in the year. [facility] screen Fibrosis-4 (Fib-4) Index for liver fibrosis (calculated on lab work done: 11/18) 1.83 points Advanced fibrosis excluded Approximate Fibrosis stage Teetee 2-3 *Use with caution in patients <35 or >65 years old, as the score has been shown to be less reliable in these patients. Prior Imaging Action Plan: refer to GI for workup. This was done last visit but patient has not heard from Gastroenterology [facility] Medical History (Updated 04/08/25 @ 08:57 by Tiffanie Gooden NP) Fatty liver Fibroids PMB (postmenopausal bleeding) Osteopenia Dyslipidemia Diabetic polyneuropathy associated with type 2 diabetes mellitus Diabetes type 2, uncontrolled Diabetes 1.5, managed as type 1 Panic anxiety syndrome Hospital discharge follow-up Vitamin D deficiency Carpal tunnel syndrome Incontinence Hemorrhoids Tubal occlusion Insomnia Elevated cholesterol Depression Hypertension IDDM (insulin dependent diabetes mellitus) Surgical History Hx of cataract surgery History of neck surgery History of surgery History of colonoscopy History of hemorrhoidectomy History of carpal tunnel release History of bladder surgery S/P sinus surgery Hx of breast reduction, elective Hx of appendectomy H/O tubal ligation History of heart artery stent Family History Father No problems noted. Mother Heart disease Lung cancer Brother Liver cancer Brother Renal cancer HTN (hypertension) Diabetes mellitus Maternal Grandfather No problems noted. Maternal Grandmother No problems noted. Paternal Grandfather No problems noted. Paternal Grandmother No problems noted. Maternal Uncle Diabetes mellitus Paternal Uncle Diabetes mellitus Son No problems noted. Daughter No problems noted. Social History Housing: House Alcohol intake: current Alcohol intake frequency: holidays/special occasions only Patient Tobacco Use Status: Former Tobacco user e-Cigarette/Vaping Use: Never Used service: No Current occupational status: disabled Current occupation: right hand dominant Sexual orientation: Straight/Heterosexual Gender identity: Female Cognitive needs: No Hearing needs: No Vision needs: Yes Female Reproductive History Menstrual Age of Menarche: 14 Physical Exam Vital Signs: Last Vital Signs Pulse 96 04/08/25 08:16 BP 116/60 04/08/25 08:16 Pulse Ox 97 04/08/25 08:16 Oxygen Delivery Method Room Air 04/08/25 08:16 BMI result Body Mass Index 28.5 Const Other: Absence of Cushingoid features. Absence of acromegalic features. Neck exam reveals nl size thyroid about 15 gms. No thyroid nodules palpable. Heart S1 S2, Reg R/R. No M/R G. Skin exam reveals absence of vitiligo or acanthosis nigricans. Visual exam of foot performed. No ulcerations or open lesions. No inter digit maceration or fissuring. No onychomycosis, no callouses. Sensation intact to monofilament exam. Vibratory sensation is normal with 128 Hz tuning fork. Pulses positive distally. Office Procedures Glucose Monitoring Details Details: [place] 05124 - Glucose monitoring, continuous-physician I&R Procedure code (CPT) selection complete Results AMB Hemoglobin A1c AMB Hemoglobin A1c 7.1 % Last Edit by JACOBO Reyes on 04/08/25 08:45 Results Reviewed Results Reviewed: Laboratory Last Values Glucose (Clinic) 171 mg/dL (60-115) H 04/08/25 08:24 Hgb A1c (Clinic) 7.1 % (4.0-6.0) H 04/08/25 08:44 Assessment & Plan Assessment & Plan (1) Fatty liver: Code(s): K76.0 - Fatty (change of) liver, not elsewhere classified Category: Medical Plan: Newer referral replaced for GI. She was asked to call our office if she has not heard in the next 10 days about this. Continue Ozempic. Orders: Orders AMB Hemoglobin A1c Today E13.9 - Other specified diabetes mellitus without complications AMB Glucose Monitoring Today E13.9 - Other specified diabetes mellitus without complications Referrals Gastroenterology Referral K76.0 - Fatty (change of) liver, not elsewhere classified, Z12.11 - Encounter for screening for malignant neoplasm of colon Patient Instructions: The patient was counseled to achieve a target A1C of 7% (154 avg). Fasting blood sugars should be 90-130 in the morning and less than 180 two hours after meals. Reviewed the relationship between poor diabetic control and the development of complications. Check your feet daily looking for any signs of infection, drainage, redness, ulceration and seek medical attention if this occurs. Break in shoes gradually and do not wear open-toed shoes or walk stocking footed or barefooted. Coding Level of Care Code Est Pt Level 4 (16989) Complex EM visit Add On G2211 Diagnoses Fatty liver K76.0 CPT Codes Details - CPT: 46490 - Glucose monitoring, continuous-physician I&R ([id number]) Time Spent (min) 30 Comment Time spent reviewing labs/provider notes, glucose,sensor reports, face to face, chart doc
--- OUTSIDE RECORDS SUMMARY | 2025-04-08 08:00 | XMS_ITS | Clinical Summary ---
Author Organization 175 [facility] Address [address] [place] [address] Phone Care Team Providers Care Organic Chemistry Teacher Name Role Phone Kasandra Mehta MD Primary [...] Max Daily Amount: 30 mg 6 each Active Additional Information Patient not taking.Reported on 02/02/2025 Active Problems Problem Noted Date Diagnosed Date Calcific tendonitis of right shoulder 01/09/2025 Surgery follow-up 01/09/2025 Diabetes mellitus due to und erlying condition with hyperosmolarity without coma, without long-term current use of insulin ([facility] V24, [facility] V28) 07/25/2024 Assessment & Plan (11/27/2024 11:44 AM EST): poor control of diabetes. Patient will continue with yearly Podiatric and Ophthomologic evaluations.Will consider Angiotensin Converting Enzyme Inhibitor for renal protection. Continue Ozempic, lispro, glargine, Jardiance, and metformin. Encouraged to keep the appointments with the specialist. Patient had some blood tests with her scale tester. A1c: 7.4 De Quervain's tenosynovitis 07/25/2024 Postoperative wound infection 07/17/2023 Cervical cord compression wi th myelopathy ([facility] V24, [facility] V28) 01/08/2023 Overview (09/14/2024): Last Assessment & [...] Encounters Date Type Department Care Team Description 04/07/2025 9:30 AM EDT Office Visit Orthopedic Surgery [address] [phone] Gladys Rojas MD Calcific tendonitis of right shoulder (Primary Dx) 03/12/2025 7:30 AM EDT Treatment [address] [phone] Reji Vázquez, SOURCING ASSOCIATE Chronic right shoulder pain (Primary Dx) 03/10/2025 7:30 AM EDT Treatment [address] [phone] Reji Vázquez, SOURCING ASSOCIATE Chronic right shoulder pain (Primary Dx) 03/06/2025 8:00 AM EDT Treatment [address] [phone] Kurt Alford, HUNTER Calcific tendonitis of right shoulder (Primary Dx) 03/03/2025 7:30 AM EDT Treatment [address] [phone] Morgan Khan, SOURCING ASSOCIATE Calcific tendonitis of right shoulder (Primary Dx) 02/26/2025 9:00 AM EDT Evaluation [place] [address] [place] [phone] Milton Cuellar, PT Chronic right shoulder pain (Primary Dx); Calcific tendonitis of right shoulder 02/23/2025 2:05 PM EDT Ancillary Procedure Orthopedic [facility] [address] [phone] Calcific tendonitis of right shoulder 02/23/2025 2:00 PM EDT Ancillary Procedure Orthopedic Surgery [facility] [address] [phone] Calcific tendonitis of right shoulder 02/23/2025 2:00 PM EDT Procedure visit Orthopedic [facility] [address] [phone] Ann-Marie Casey MD Calcific tendonitis of right shoulder (Primary Dx) 02/02/2025 11:00 AM EDT Consult Orthopedic [facility] [address] [phone] Claudio Tafoya MD Calcific tendonitis of right shoulder (Primary Dx) 01/19/2025 12:30 PM EST Treatment Outpatient Rehabilitation - [address] [phone] Cruzito Pulido, PT Chronic right shoulder pain (Primary Dx) 01/12/2025 8:30 AM EST Treatment Outpatient Rehabilitation - [address] [phone] Morgan Khan, SOURCING ASSOCIATE Chronic right shoulder pain (Primary Dx) 01/09/2025 8:15 AM EST Office Visit Orthopedic [facility] 175 [facility] [address] [place] [phone] Gladys Rojas MD Surgery follow-up (Primary Dx); De Quervain's tenosynovitis; Calcific tendonitis of right shoulder from Last 3 Months Immunizations Name Administration [...] finger release OTHER SURGICAL HISTORY 01/16/2023 PROCEDURE: [place] ARTHRD ANT INTERDY CERVCL BELW C2 EA [...] EST Temperature 36.3 ??C (97.3 ??F) 11/27/2024 1 1:18 AM EST Respiratory Rate 12 11/27/2024 11:1 8 AM EST Oxygen Saturation 92% 11/20/2024 10: 01 AM EST Inhaled Oxygen Concentration - - Weight 73.9 kg (162 lb 14.7 oz) 04/07/2025 9:16 AM EDT Height 160 cm (5' 2.99 ) 04/07/2025 9:16 AM EDT Body Mass Index 28.87 04/07/2025 9:16 AM EDT Plan of Treatment Upcoming Encounters Date Type Department Care Team (Late st Contact Info) Description 05/01/2025 8:30 AM EDT Evaluation [facility] [place] 175 [facility] [address] [place] [phone] Sun Elias, PT 05/20/2025 9:45 AM EDT Office Visit Orthopedic Surgery - [place] 160 175 [facility] [address] [place] [phone] Joi Hillman PA 175 [facility] [address] [place] [address] 05/28/2025 8:30 AM EDT Office Visit Adult Medicine [facility] [address] [place] [address] Kasandra Mehta MD [address] [place] [address] Health Maintenance Due Date Last Done Comments [...] Author PT STG x 8 visits from [facility] 02/26/2025 General Yes Milton Cuellar PT Note: [] Pt will increase appleys scratch test IR to mid L spine, [] Pt will increase right shoulder abd active ROM to 115 degrees, [] Pt will increase right shoulder flexion active ROM to 140 degrees, [] Pt will decrease waking frequency to 1 a night due to pain PT LTG x 14 visits from [facility] 02/26/2025 General No Milton Cuellar PT Note: [] Pt will be able [...] Procedure Name Priority Date/Time Associated Diagnosis Comments [place] ARTHROCENTESIS/ASPIR ATION/INJECTION MAJOR JOINT/BURSA W/O U/S GUIDANCE [...] Routine 12/29/2024 8:38 AM EST Osteoporosis screening from Last 3 Months or Most Recently Relevant to Health Maintenance Results * [place] ARTHROCENTESIS/ASPIRATION/INJECTION MAJOR JOINT/BURSA W/O U/S GUIDANCE (02/23/2025 [...] will permanently stored in patients medical record. Ann-Marie Casey MD IMG US PROCEDURES Final Result * MG Mammo [...] of calcific tendinitis right subacromial space Gladys Rjoas MD IM XR PROCEDURES Final Resul t * BD [...] screening schedule based on lucy Islas., [facility] December 14, 2011 for patients [...] Signed Date: 12/29/2024 10:36 ET Workstation ID: [id number] Transcribed By: Self Edit Transcribed Date: 12/29/2024 [...] FRAX. Optional alternative screening schedule based on brent Islas al., NEJMJanuary 2011 for patients with osteopenia (based [...] Signed Date: 12/29/2024 10:36 ET Workstation ID: [id number] Transcribed By: Self Edit Transcribed Date: 12/29/2024 10:33 ET Kasandra Mehta MD IMG DXA PROCEDURES Final Result from Last 3 Months or Most Recently Relevant to Health Maintenance Insurance [facility] MEDICARE Member Subscriber Plan / Payer (Ef fective 2022-Present) Name:Emma Prater Relation to Subscriber:Self Name:Emma Prater Payer ID:[id number] Group ID:[id number] Type:Not on file Address: [address] [facility] [place] [address] Care Teams Organic Chemistry Teacher Relationship Specialty Start Date End Date Kasandra Mehta MD [address] [place] [phone] PCP - General 01/23/24
--- OUTSIDE RECORDS SUMMARY | 2025-04-08 08:00 | XMS_ITS | Encounter Summary ---
Author Organization [employer] Address [address] [place] [address] Care Team Providers Care Student Specialist Name Role Phone Kasandra Mehta MD Primary Care Prov ider Reason for Referral * Consultation (Routine) - Authorized Specialty Diagnoses / Procedures Referred By Contac t Referred To Contact Physical Therapy Diagnoses Calcific tendonitis of right shoulder Gladys Rojas MD [address] [phone] Phone: tel: fax: Referral ID Status Reason Start Date Expiration Date Visits Requested Visits Authorized [id number] Authorized Specialty Services Required 04/07/2025 04/07/2026 21 21 Reason for Visit * Reason Comments Follow-up Procedure: Left wris t first dorsal compartment releaseDate of surgery: 11/20/24 Encounter Details Date Type Department Care Team (Late st Contact Info) Description 04/07/2025 9:30 AM EDT Office Visit Orthopedic Surgery - [place] [address] [phone] Gladys Rojas MD [address] [phone] Calcific tendonitis of right shoulder (Primary Dx) [...] Mass Index 28.87 04/07/2025 9:16 AM EDT documented in this encounter Progress Notes * Gladys Rojas MD - 04/07/2025 9:30 AM EDT CHIEF COMPLAINT/REASON FOR VISIT: Follow-up for right shoulder calcific tendinitis SUBJECTIVE: Patient returns for reeval for her right shoulder. She had originally come in previously for follow-up of her left wrist surgery however she had an acute bout of shoulder tendinitis. She was treated and then had follow-up with Dr. Casey and had an additional subacromial injection which really helped a lot. The patient was able to do some therapy. Unfortunately she had a family emergency so several of the visits at the end of February she had to cancel. She is generally feeling better but has some lingering stiffness in the shoulder OBJECTIVE: Visual inspection of the right shoulder does not reveal any abnormalities. Forward flexion is to 130 degrees. Pure abduction out to about 85. She is able to bring her arms up and put her hands behindher head. She does have some difficulty with internal rotation and can get her hands to her waist but has been a little bit more difficulty with the right side than with the left going further behindher back. ASSESSMENT: 1. Calcific tendonitis of right shoulder Ambulatory referral to Physical Therapy and Athletic Training Patient is certainly better than when I first saw her when she had the acute onset of the tendinitis. I think just resuming therapy would be warranted to help minimize any residual stiffness. I put anew order in. It looks like she had an appointment with Joi soto in sports medicine so we will just bump that visit back. If all is well she can just follow-up as needed thereafter. She certainly can come see us as needed if there are any issues of the hands and wrists. Gladys Rojas MD Patient Active Problem List Diagnosis Cervical cord compression with myelopathy ([facility] V24, [facility] V28) Diabetes mellitus due to underlying condition with hyperosmolarity without coma, without long-term current use of insulin (CMS/HCC V24, CMS/HCC V28) Left carpal tunnel syndrome Postoperative wound infection De Quervain's tenosynovitis Trigger finger, right ring finger Calcific tendonitis of right shoulder Surgery follow-up Current Outpatient Medications: albuterol 0.63 mg/3 mL [...] ARM. ROTATE INJECTION SITES., Disp: , Rfl: documented in this encounter Plan of Treatment Upcoming Encounters Date Type Department Care Team (Late st Contact Info) Description 05/01/2025 8:30 AM EDT Evaluation [facility] Rehabilitation [address] [phone] Sun Elias, MELANY 05/20/2025 9:45 AM EDT Office Visit Orthopedic Surgery [place] [address] 175 [facility] [address] [place] [address] Joi Hillman PA [address] [address] 05/28/2025 8:30 AM EDT Office Visit Adult Medicine [address] [phone] Kasandra Mehta MD [address] [place] [address] Scheduled Referrals Name Type Priority Associated Diagnoses Order Schedule Ambulatory referral to Physical Therapy and Athletic Training Outpatient Referral Routine Calcific tendonitis of right shoulder 1 Occurrences starting 04/07/2025 until 04/07/2026 documented as of this encounter Goals Goal Patient Goal Type Associated Problems Recent Progress Patient-Stated? Author PT STG x 8 visits from [facility] 02/26/2025 General Yes Milton Cuellar, [...] pain PT LTG x 14 visits from [facility] 02/26/2025 General Milton Wiseman, PT [...] Primary documented in this encounter Care Teams Student Specialist Relationship Specialty Start Date End Date Kasandra Mehta MD [address] [place] [phone] PCP - General 01/23/24 documented as of this encounter
--- OUTSIDE RECORDS SUMMARY | 2025-04-08 08:00 | XMS_ITS | Encounter Summary ---
Author Organization [email or web address] Address [address] [facility] [address] [place] [address] Care Team Providers Care Perfusionist Name Role Phone Unavailable Primary Care Provider Unavailabl e Encounter Details Date Type Department Care Team (Late st Contact Info) Description 05/25/2023 Telephone [facility] MEDICINE [address] [place] [address] Rosario Santoyo LPN Social History Tobacco Use [...] Description 05/11/2025 10:00 AM EDT Office Visit [facility] ADULT DENTAL [address] [place] [address] Radha Hackett [address] [place] [address] documented as of this encounter Visit Diagnoses Not on filedocumented in this encounter
--- OUTSIDE RECORDS SUMMARY | 2025-04-08 08:00 | XMS_ITS | Data Portability ---
Author Organization [employer] [facility], [place] - [facility] Address [address] [place] [phone] Care Team Providers Care Clinical Appeals Rn Name Role Phone HIM CCA Referring Provider Assessment Encounter Date Assessment Date Assessment LastModified by Organization Details LastModified Time 03/10/2024 03/10/2024 I provided real -time medical direction via phone for this encounter, and was available for additional phone based assistance as needed. I have reviewed and agree with the Assessment and Plan as documented by the Mixing Supervisor. We discussed the diagnostic uncertainty of home [...] to call 911- verbalized understanding of instruction [email or web address] Not available 03/10/2024 11:57:00 Plan of Treatment Reminders Order Date Submit Date Provider Last Modified By Organization Details Last Modified Time Details Appointments None recorded. Lab BMP, serum or plasma 2023 024 [email or web address], [id number] 4 12:01:00 rapid flu (A+B) 2023 024 [email or web address], [address] 4 11:56:35 rapid SARS CoV 2 Ag, QL IA, respiratory specimen 2023 024 [email or web address] [address], [address] 4 11:56:33 Referral None recorded. Procedures None [...] a BUN 15 Not Available Main - [address], [address] [place] [address] 03/10/2024 11:59:38 03/10/20 24 03/10/2024 BMP, serum or plasm a Ca Ionize d calciu m 1.17 Not Available [address], [address] [place] [address] 03/10/2024 11:59:38 03/10/20 24 03/10/2024 BMP, serum or plasm a CI- 108 Not Available Main - [address], [address] [place] [address] 03/10/2024 11:59:38 03/10/20 24 03/10/2024 BMP, serum or plasm a CRE 0.6 Not Available [facility] - [address], [address] [place] [address] 03/10/2024 11:59:38 03/10/20 24 03/10/2024 BMP, serum or plasm a GLU 198 Not Available Main - [address], [address] [place] [address] 03/10/2024 11:59:38 03/10/20 24 03/10/2024 BMP, serum or plasm a K+ 3.9 Not Available Main - [address], [address] [place] [address] 03/10/2024 11:59:38 03/10/20 24 03/10/2024 BMP, serum or plasm a Na+ 141 Not Available [facility] - [address], [address] [place] [address] 03/10/2024 11:59:38 03/10/20 24 03/10/2024 BMP, serum or plasm a tCO2 19 Not Available [facility] - [address], [address] [place] [address] 03/10/2024 11:59:38 03/10/20 24 03/10/2024 rapid SARS CoV 2 Ag, QL IA, respi rator y speci men rapid SARS CoV 2 Ag, QL IA, respiratory specimen negati ve Not Available Main - [facility] ed [address] [place] [address], [phone] 03/10/2024 11:31:16 03/10/20 24 03/10/2024 rapid flu (A+B) Flu negati ve Not Available Main - [facility] ed [address] [place] [address], [phone] 03/10/2024 11:31:14 Result Notes None recorded. Medical [...] Available Not Avai lable Comfort EZ Pen Galvin 33 gauge x 5/32 active Not Available [...] % 99 % 160.02 cm 98 [degF] 47991.7 2 g 18 /min 149 mm[Hg] 84 [...] SNOMED-CT Code Diagnosis ICD10 Code Diagnosis Note [id number] Liana Morris MD Main - [facility] [address] [place] [address] 03/10/2024 11:29:39 03/10/2024 19:14:16 Influenza 2292846 J11.1 resolving other than persistent cough-want to [...] Red flags reviewed with patient Rib pain [id number] R07.8 1 From cough, no crepitance to [...] Recorded Advance Directives Directive None Recorded Payers Insurance Date Sequence Insurance Name Policy Number Policy Bates Covered Member ID Bates Member ID Guarantor Name 03/10/2024 1 [facility] - DOS ON OR AFTER 2023 - DUAL ELIGIBLE - [facility] OPTIONS AND ONE CARE (MEDICARE REPLACEMENT/ADV ANTAGE - HMO) Emma Rodríguezgo [id number] Emma Prater Notes Date Note Type Note Provider Name and Address Organization Details Recorded Time 03/10/2024 text/html HPI: Member is 68 yo Yakut speaking female, who was treated at [facility] on 03/06/24 for Flu and reports [...] .................. .................. .................. .................. .................. .................. ............... Mixing Supervisor Note From Reji Schaefer: Smartcare visit for female patient with cough and rib pain. Pt presents conscious and alert. wood model builder utilized via phone. Pt states she was [...] Pt afebrile. Lung sounds clear. Consulted with [facility] who ordered covid and flu swabs, completed and both negative. [facility] ordered basic metabolic panel [...] use MDI properly Liana Morris MD [address] [facility],[address], [place], [address], [employer] 03/10/2024 14:04:41 OBGyn Episode No OBEpisode recorded.
--- OUTSIDE RECORDS SUMMARY | 2025-04-08 08:00 | XMS_ITS | Encounter Summary ---
Author Organization [employer] Address [address] [facility] [address] [place] [address] Care Team Providers Care General Ledger Bookkeeper Name Role Phone Unavailable Primary Care Provider Unavailabl e Encounter Details Date Type Department Care Team (Latest Contact Info) Description 08/07/2022 Abstract [facility] CONVERSIONS Dental, Provider, DDS Social History Tobacco [...] Description 05/11/2025 10:00 AM EDT Office Visit [facility] ADULT DENTAL [address] [place] [address] Roxann Radha [address] [place] [address] documented as of this encounter Visit Diagnoses Not on filedocumented in this encounter
--- OUTSIDE RECORDS SUMMARY | 2025-04-08 08:00 | XMS_ITS | Clinical Summary ---
Author Organization [employer] Address [address] [place] [address] [address] [place] [address] Care Team Providers Care Cash Accounting Clerk Name Role Phone Unavailable Primary Care Provider [...] Gingival bleeding 05/06/2024 Missing teeth, acquired 05/06/2024 Immunizations Immunization Administration Dates Next Due Td (adult), 5 [...] Description 05/11/2025 10:00 AM EDT Office Visit [facility] ADULT DENTAL [address] [place], [place] [phone] Roxann, Radha [address] [place] [address] Health Maintenance Due Date Last Done Comments CT Colonography 1957 Colonoscopy 1957 Colorectal Cancer Screening 1957 Depression Screening 1957 FIT DNA/Cologuard 1957 FIT 1957 FOBT 1957 SDOH Screening 1957 Sigmoidoscopy 1957 Alcohol/Substance Use Screening 1969 Hepatitis C Screening 1975 Mammogram 1997 Pneumococcal Vaccine: 50+ Years (1 of 1 - PCV) 2007 DTaP/Tdap/Td Vaccines (1 - Tdap) 06/26/2017 06/25/2017, 02/13/2014 COVID-19 Vaccine ( season) 2024 11/10/2021, 03/08/2021, 02/08/2021 Influenza Vaccine [...] Procedure Name Priority Date/Time Associated Diagnosis Comments PROPHYLAXIS - ADULT Routine 11/06/2024 3 :00 PM EST Dental calculus Generalized gingival recession PERIODIC ORAL EVALUATION - ESTABLISHED PATIENT Routine 11/06/2024 3:00 PM EST INTRAORAL - COMPLETE SERIES OF RADIOGRAPHIC IMAGES Routine 05/06/2024 11:00 AM EDT Acute gingival inflammation Periodontal disease Dental calculus Generalized gingival recession Gingival bleeding from Last 3 Months or Most Recently Relevant to Health Maintenance Insurance [facility] RESIDENTIAL OPTIONS (HMO D-SNP) ELIZABETH SANCHEZ [id number] DENTAL [facility] [address] [place] [address] [place] [address] [place] [id number]
--- OUTSIDE RECORDS SUMMARY | 2025-04-08 08:00 | XMS_ITS | Encounter Summary ---
Author Organization [employer] Address [address] [facility] [address] [place] [address] Care Team Providers Care Still Operator Batch Or Continuous Name Role Phone Unavailable Primary Care Provider Unavailabl e Encounter Details Date Type Department Care Team (Latest Contact Info) Description 03/23/2021 Abstract [facility] CONVERSIONS Dental, Provider, DDS Social History [...] Description 05/11/2025 10:00 AM EDT Office Visit [facility] ADULT DENTAL [address] [place] [address] Sharad Hackettaris [address] [place] [address] documented as of this encounter Visit Diagnoses Not on filedocumented in this encounter
[2025-04-08 08:16] VITALS: BP 116/60; PULSE 96; O2SAT 97; BMI 28.5
[2025-04-08 08:28] LABS: Glucose, Whole Blood 171 mg/dL (60-115)
== END 2025-04-08 08:54 | disposition home or self-care (01) ==
LOC: HO.ENCR 07:58
PROVIDERS: PCP Internal Medicine; Visit Provider Nurse Practitioner Adult Health
DX: E13.9 Other specified diabetes mellitus without complications (principal); K76.0 Fatty (change of) liver, not elsewhere classified
CPT/HCPCS: 95251; 99214; G2211

== ENCOUNTER → 2025-04-08 07:57 | Outpatient (BNVA) | payer OTHER, SELFPAY | PROVIDERS: PCP Internal Medicine; Visit Provider Nurse Practitioner Adult Health | DX: K76.0 Fatty (change of) liver, not elsewhere classified (principal) | CPT/HCPCS: 82947; 83036; 99212 ==

== ENCOUNTER 2025-04-21 08:00 | Outpatient (AMB) | payer OTHER, SELFPAY ==
--- OUTSIDE RECORDS SUMMARY | 2025-04-21 08:03 | XMS_ITS | Data Portability ---
Author Organization [employer] [facility], [place] - [facility] Address [address] [place] [phone] Care Team Providers Care Ring Packer Name Role Phone HIM CCA Referring Provider Assessment Encounter Date Assessment Date Assessment LastModified by Organization Details LastModified Time 03/10/2024 03/10/2024 I provided real -time medical direction via phone for this encounter, and was available for additional phone based assistance as needed. I have reviewed and agree with the Assessment and Plan as documented by the Optometric Technician. We discussed the diagnostic uncertainty of home [...] serum or plasma 2023 024 [email or web address] 0 [facility], [address] [place] [address], [phone] 4 12:01:00 rapid flu (A+B) 2023 024 [email or web address] [address], [address] 4 11:56:35 rapid SARS CoV 2 Ag, QL IA, respiratory specimen 2023 024 [email or web address] [address], [address] 4 11:56:33 Referral None recorded. Procedures None [...] a BUN 15 Not Available Main - [address], [address] [place] [address] 03/10/2024 11:59:38 03/10/20 24 03/10/2024 BMP, serum or plasm a Ca Ionize d calciu m 1.17 Not Available [address], [address] [place] [address] 03/10/2024 11:59:38 03/10/20 24 03/10/2024 BMP, serum or plasm a CI- 108 Not Available Main - [address], [address] [place] [address] 03/10/2024 11:59:38 03/10/20 24 03/10/2024 BMP, serum or plasm a CRE 0.6 Not Available [facility] - [address], [address] [place] [address] 03/10/2024 11:59:38 03/10/20 24 03/10/2024 BMP, serum or plasm a GLU 198 Not Available Main - [address], [address] [place] [address] 03/10/2024 11:59:38 03/10/20 24 03/10/2024 BMP, serum or plasm a K+ 3.9 Not Available Main - [address], [address] [place] [address] 03/10/2024 11:59:38 03/10/20 24 03/10/2024 BMP, serum or plasm a Na+ 141 Not Available [facility] - [address], [address] [place] [address] 03/10/2024 11:59:38 03/10/20 24 03/10/2024 BMP, serum or plasm a tCO2 19 Not Available [facility] - [address], [address] [place] [address] 03/10/2024 11:59:38 03/10/20 24 03/10/2024 rapid SARS CoV 2 Ag, QL IA, respi rator y speci men rapid SARS CoV 2 Ag, QL IA, respiratory specimen negati ve Not Available Main - [facility] ed [address] [place] [address], [phone] 03/10/2024 11:31:16 03/10/20 24 03/10/2024 rapid flu (A+B) Flu negati ve Not Available Main - [facility] ed [address] [place] [address], [phone] 03/10/2024 11:31:14 Result Notes None recorded. Medical [...] Available Not Avai lable Comfort EZ Pen [place] 33 gauge x 5/32 active Not Available [...] Body temperature Body weight Respiratory rate Systolic And Diastolic Provider Name and Address Organization Details Last Updated DateTime 4 90 /min 99 % 99 % 160.02 cm 98 [degF] 95071.7 2 g 18 /min 149/84 mm[Hg] Not Available [employer] - production 4 [...] SNOMED-CT Code Diagnosis ICD10 Code Diagnosis Note [id number] Liana Morris MD Main - [facility] [address] [place] [phone] 03/10/2024 11:29:39 03/10/2024 19:14:16 Influenza [id number] J11.1 resolving other than persistent cough-want to [...] Red flags reviewed with patient Rib pain [id number] R07.8 1 From cough, no crepitance to [...] Bates Member ID Guarantor Name 03/10/2024 1 [facility] - DOS ON OR AFTER 2023 - DUAL ELIGIBLE - [facility] OPTIONS AND ONE CARE (MEDICARE REPLACEMENT/ADV ANTAGE - HMO) Emma Moi [id number] Emma L Moi Notes Date Note Type Note Provider Name and Address Organization Details Recorded Time 03/10/2024 text/html HPI: Member is 68 yo [place] speaking female, who was treated at [facility] on 03/06/24 for Flu and reports [...] .................. .................. .................. .................. .................. .................. ............... Optometric Technician Note From Reji Schaefer: Smartcare visit for female patient with cough and rib pain. Pt presents conscious and alert. pack train driver utilized via phone. Pt states she was [...] sounds clear. Consulted with [facility] who ordered covid and flu swabs, completed and both negative. [facility] ordered basic metabolic [...] use MDI properly Liana Morris MD [address] [facility],[address], [place], [address], [employer] 03/10/2024 14:04:41 OBGyn Episode No OBEpisode recorded.
--- NOTE | 2025-04-21 08:33 | A.OFFVIS_ITS ---
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 She is doing well with no etl application developer concerns. Currently not sexually active. Denies any vaginal dryness or irritation. STI testing offered; she declines. Attempting to eat a healthy diet. Last pap smear; 2020. Last mammogram; 2024. Colonoscopy appt. TBD. Family history of breast cancer. [facility] Medical History Fatty liver Fibroids PMB (postmenopausal bleeding) Osteopenia Dyslipidemia Diabetic polyneuropathy associated with type 2 diabetes mellitus Diabetes type 2, uncontrolled Diabetes 1.5, managed as type 1 Panic anxiety syndrome Hospital discharge follow-up Vitamin D deficiency Carpal tunnel syndrome Incontinence Hemorrhoids Tubal occlusion Insomnia Elevated cholesterol Depression Hypertension IDDM (insulin dependent diabetes mellitus) Surgical History Hx of cataract surgery History of neck surgery History of surgery History of colonoscopy History of hemorrhoidectomy History of carpal tunnel release History of bladder surgery S/P sinus surgery Hx of breast reduction, elective Hx of appendectomy H/O tubal ligation History of heart artery stent Family History Father No problems noted. Mother Heart disease Lung cancer Brother Liver cancer Brother Renal cancer HTN (hypertension) Diabetes mellitus Maternal Grandfather No problems noted. Maternal Grandmother No problems noted. Paternal Grandfather No problems noted. Paternal Grandmother No problems noted. Maternal Uncle Diabetes mellitus Paternal Uncle Diabetes mellitus Son No problems noted. Daughter No problems noted. Family/Other History of breast cancer Social History Housing: House Alcohol intake: current Alcohol intake frequency: holidays/special occasions only Patient Tobacco Use Status: Former Tobacco user e-Cigarette/Vaping Use: Never Used service: No Current occupational status: disabled Current occupation: right hand dominant Sexual orientation: Straight/Heterosexual Gender identity: Female Cognitive needs: No Hearing needs: No Vision needs: Yes Female Reproductive History Menstrual Age of Menarche: 14 Total pregnancies: 2 Full term: 2 Number of Living Children: 2 Date of last pap smear: 03/29/21 (neg pap and hpv) Date of Mammogram: 01/14/25 (Birad 2) Review of Systems Const All systems reviewed & are unremarkable except as noted in HPI and below Reports as per HPI Eyes Reports no additional complaints ENT Reports no additional complaints Card Reports no additional complaints Resp Reports no additional complaints GI Reports as per HPI and Reports no additional complaints Reports as per HPI Musc Reports no additional complaints Skin/Breast Reports as per HPI Neuro Reports no additional complaints Psych Reports no additional complaints Endo Reports no additional complaints Baldemar/Lymph Reports no additional complaints Aller/Immun Reports no additional complaints Physical Exam Vital Signs: Last Vital Signs BP 112/64 04/21/25 08:34 BMI result Body Mass Index 0.3 Const General: cooperative, healthy appearing, no acute distress, well developed and alert Orientation/consciousness: patient oriented x3 HEENT Head: Yes normal to inspection Eyes General: appearance normal, both eyes and all related structures Neck Neck: Yes normal visual inspection Thyroid: Thyroid normal Chest Other: Bilateral breast reduction scarring Chest palpation & inspection: normal inspection of the chest and other (no puckering, dimpling, peau de orange, retraction, discharge, masses) Breast/axilla inspection: normal inspection of the breasts Breast/axilla palpation: normal palpation of the breasts Resp Effort & Inspection: normal respiratory effort GI Inspection: Yes normal to inspection and Yes scar Palpation (GI): Soft to palpation Rectal Exam - Female: deferred General: Yes bladder normal to palpation External Female Exam: normal external appearance and normal appearance of the urethra Speculum Exam - Vagina: normal appearance of the vagina, normal palpation, normal vaginal discharge and vagina atrophic Speculum Exam - Cervix: normal appearance of the cervix and normal palpation Bimanual exam- vagina & uterus: normal bimanual exam, normal palpation, uterine size normal, bladder normal to palpation, normal palpation and non-tender Bimanual Exam- Adnexa, other: no masses Skin General skin exam: no rashes or lesions noted Rashes: no rashes Neuro General: patient oriented x3 Cognition (Neuro): normal cognition Extrem General: Yes normal to inspection Psych Attitude: cooperative Thought process: Normal thought process present Results Reviewed Results Reviewed: [address] [address] Ultrasound Report Signed Patient: Emma Thrasher MR#: [id number] : 1955 Acct:[id number] Age/Sex: 69 / F ADM Date: 02/25/25 Loc: HO.US Attending Dr: Jamaica Greenberg CNM Ordering Physician: Jamaica Greenberg CNM Date of Service: 02/25/25 Procedure(s): US pelvic and transvaginal Accession Number(s): [id number] cc: Jamaica Greenberg CNM; Kasandra Landis MD~ CLINICAL HISTORY: D21.9 - Benign neoplasm of connective and other soft tissue, unspecified US pelvis transabdominal and transvaginal Comparison: 02/27/2024 Findings: Uterus measures 5.5 x 2.7 x 4.4 cm. 8 mm (versus 10 mm previously) intramural proximal uterine fibroid. Endometrium 3 mm thickness. Right ovary measures 2.4 x 1.3 x 1.2 cm. Left ovary not seen. No adnexal mass lesion. No free fluid. IMPRESSION: Nonprogressive subcentimeter proximal uterine intramural fibroid. This document has been electronically signed by: Cece Queen MD on 02/25/2025 12:18:48 Dictated By: Cece Queen MD Signed By: <Electronically signed by Cece Queen MD in OV> 02/25/25 1219 DD/ 1218 TD/TT: 02/25/25 1218 Teacher Industrial Arts: Assessment & Plan Assessment & Plan (1) Encounter for well woman exam with routine gynecological exam: Code(s): Z01.419 - Encounter for gynecological examination (general) (routine) without abnormal findings Category: Medical Plan: Discussed: Current recommendations for pap smears per ASCCP guidelines. Breast awareness, periodic self breast exams and yearly mammogram. Maintain a healthy lifestyle, well balanced diet and routine exercise. Contact the office with any postmenopausal bleeding. Patient verbalizes understanding and agrees to the plan of care. She was given opportunity to ask questions and all questions were answered to the best of my ability. RTO in 1 year for annual etl application developer exam. This note is constructed using voice recognition software. While every effort has been made to ensure accuracy, wire wheeler errors may have been included. (2) Fibroids: Code(s): D21.9 - Benign neoplasm of connective and other soft tissue, unspecified Category: Medical Plan Discussed: US findings-fibroid decreased in size since last exam. Advised to call if any PMB, pelvic pain, bloating or pressure changes. The patient expressed understanding and agreement with the plan of care. All of her questions and concerns were addressed to the best of my ability. Total time I personally spent on visit and management today: ?15 minutes. Time spent included review of pertinent office notes in the electronic health record; review of laboratory and imaging results; review of personal family medical history; performing physical exam; discussing diagnosis and plan of care with the patient; documenting the encounter in the EMR. Coding Level of Care Code Est Pt Level 2 (94321) Est Pt Prev Care >65y(07557) Diagnoses Encounter for well woman exam with routine gynecological exam Z01.419 Fibroids D21.9
[2025-04-21 08:34] VITALS: BP 112/64
== END 2025-04-21 08:54 | disposition home or self-care (01) ==
LOC: HO.HWS 08:01
PROVIDERS: PCP Internal Medicine; Visit Provider Advanced Practice Midwife
DX: Z01.419 Encounter for gynecological examination (general) (routine) without abnormal findings (principal); D21.9 Benign neoplasm of connective and other soft tissue, unspecified
CPT/HCPCS: 99397; 99459

== ENCOUNTER → 2025-04-21 08:00 | Outpatient (BNVA) | payer OTHER, SELFPAY | PROVIDERS: PCP Internal Medicine; Visit Provider Advanced Practice Midwife | DX: Z01.419 Encounter for gynecological examination (general) (routine) without abnormal findings (principal); D21.9 Benign neoplasm of connective and other soft tissue, unspecified | CPT/HCPCS: 99397; 99459 ==

== ENCOUNTER 2025-04-23 07:56 | Outpatient (AMB) | payer OTHER, SELFPAY ==
--- NOTE | 2025-04-23 08:20 | MHC.AMDMED ---
Intake Intake Visit Reasons: 30 min Consulting Senior Practice Director Required: Yes Consulting Senior Practice Director Language: Outpatient Program Coordinator Services: Consulting Senior Practice Director Present Consulting Senior Practice Director Name: [facility] Accompanied by: Self / Same As Patient Allergies No Known Allergies Allergy (Verified 04/21/25 08:34) HPI Comprehensive Diabetes Asmnt Most Recent Diabetes Results: No Data to Display [facility] Medical History Fatty liver Fibroids PMB (postmenopausal bleeding) Osteopenia Dyslipidemia Diabetic polyneuropathy associated with type 2 diabetes mellitus Diabetes type 2, uncontrolled Diabetes 1.5, managed as type 1 Panic anxiety syndrome Hospital discharge follow-up Vitamin D deficiency Carpal tunnel syndrome Incontinence Hemorrhoids Tubal occlusion Insomnia Elevated cholesterol Depression Hypertension IDDM (insulin dependent diabetes mellitus) Surgical History Hx of cataract surgery History of neck surgery History of surgery History of colonoscopy History of hemorrhoidectomy History of carpal tunnel release History of bladder surgery S/P sinus surgery Hx of breast reduction, elective Hx of appendectomy H/O tubal ligation History of heart artery stent Family History Father No problems noted. Mother Heart disease Lung cancer Brother Liver cancer Brother Renal cancer HTN (hypertension) Diabetes mellitus Maternal Grandfather No problems noted. Maternal Grandmother No problems noted. Paternal Grandfather No problems noted. Paternal Grandmother No problems noted. Maternal Uncle Diabetes mellitus Paternal Uncle Diabetes mellitus Son No problems noted. Daughter No problems noted. Family/Other History of breast cancer Social History Housing: House Alcohol intake: current Alcohol intake frequency: holidays/special occasions only Patient Tobacco Use Status: Former Tobacco user e-Cigarette/Vaping Use: Never Used service: No Current occupational status: disabled Current occupation: right hand dominant Sexual orientation: Straight/Heterosexual Gender identity: Female Cognitive needs: No Hearing needs: No Vision needs: Yes Female Reproductive History Menstrual Age of Menarche: 14 Assessment & Plan Assessment & Plan (1) Diabetes 1.5, managed as type 1: Code(s): E13.9 - Other specified diabetes mellitus without complications Plan: Learning objectives: The patient was provided with verbal and written education on the following topics as outlined below. Patient's last A1c on 04/08/2025 7.1% Patient's glucose control is slightly above target, but she denies hypoglycemia which she was experiencing prior to last Diabetes Education visit. Diabetes Complications: ?Nephropathy :Kidney Disease ?diabetes can damage the kidneys, which is not only can cause them to fail but can make them lose their ability to filter waste from the blood? ?Retinopathy: Eye complications ?Retinopathy? is the commonest long-term complication of diabetes. It is leading cause of blindness Besides, Retinopathy-People with diabetes? are also prone to cataract and Glaucoma. ?Neuropathy: Nerve damage -It involves temporary or permanent damage to nerve tissue. Nerve tissue gets injured mainly due to decreased blood flow and rise in blood glucose levels. This damage can lead to pain , or loss of sensation it can also include sexual dysfunction in both men and women ? Infections poor healing: People with diabetes? have increased susceptibility to various infections, such as? pneumonias, pyelonephritis, carbuncles and diabetic ulcers. This may be due to poor blood supply, reduced cellular immunity or hyperglycemia. ?Heart Disease And Stroke: People with diabetes are four times more prone to develop Heart disease than those who do not have diabetes ?Depression: Feeling down once in awhile is normal, but some people feel sadness that just won't go away. Life for them seems hopeless. Feeling this way most of the day for two weeks or more is a sign of serious depression ?Gum Disease: People get gum disease when plaque destroys the gums and bone around the teeth. People with diabetes can get gum disease from having high blood glucose levels for a long time Lifestyle Work Travel Stress management Problem solving Know your goals A1C Blood sugar targets Blood pressure Cholesterol/LDL Urine microalbumin The patient met all learning objectives and was able to verbalize understanding and provide teach back of education topics discussed . The patient was provided with the opportunity to ask questions and all questions were answered. Patient Response to instructions: Comprehension of Instructions: good Readiness to make changes: action How confident they feel about making changes: positive Portions of this note were created using voice recognition software, please excuse any words or phrases that may have been misinterpreted. Patient Instructions: Incluir actividad diaria regular. ADA recomienda 30 minutos de ejercicio 5 d?as a la semana. P?rdida de peso, hable con el PCP o el cardi?logo antes de comenzar un nuevo plan. Mida el nivel de az?car en la luis seg?n las indicaciones; Ayuno y comida m?s radha de 2hpp. Observe las tendencias en los resultados. Utilice los resultados y eval?e c?mo los alimentos, la actividad f?terese y los medicamentos afectan los resultados de az?car en la luis. Lleve el gluc?metro o CGM a la pr?xima visita. Conocer los medicamentos para la diabetes, carias acci?n, los efectos secundarios, la eficacia, la toxicidad, la dosis prescrita, el momento y la frecuencia de administraci?n apropiados, el efecto de las dosis olvidadas y retrasadas y las instrucciones de almacenamiento, viaje y seguridad. T?cnicas de resoluci?n de problemas para el seguimiento de episodios de hipo/hiperglucemia y tratamientos. Reducir los comportamientos de reducci?n de riesgos, dejar de fumar, ex?menes regulares de ojos, pies y dentales. Coding Level of Care Code Tele Est Pt Level 1 (22533) Diagnoses Diabetes 1.5, managed as type 1 E13.9
== END 2025-04-23 08:59 | disposition home or self-care (01) ==
LOC: HO.ENCR 07:57
PROVIDERS: PCP Internal Medicine; Visit Provider Registered Nurse Diabetes Educator
DX: E13.9 Other specified diabetes mellitus without complications (principal)
CPT/HCPCS: 99211

== ENCOUNTER 2025-06-04 08:39 | Outpatient (AMB) | payer OTHER, SELFPAY ==
--- OUTSIDE RECORDS SUMMARY | 2025-06-01 08:30 | XMS_ITS | Encounter Summary ---
Author Organization [employer] Address [address] [place] [address] Care Team Providers Care Home Health Administrator Name Role Phone Kasandra Mehta MD Primary Care Prov ider Reason for Visit * Consultation (Routine) - Authorized Specialty Diagnoses / Procedures Referred By Contbry reyes Referred To Contact Physical Therapy Diagnoses Calcific tendonitis of right shoulder Gladys Rojas MD [address] [facility] [address] [place] [address] Phone: tel: fax: Referral ID Status Reason Start Date Expiration Date Visits Requested Visits Authorized [id number] Authorized Specialty Services Required 04/07/2025 04/07/2026 21 21 Encounter Details Date Type Department Care Team ([facility] Contact Info) Description 06/01/2025 8:30 AM EDT Treatment [facility] 175 [facility] [address] [place] [address] Kurt Alford PTA Calcific tendonitis of right shoulder (Primary Dx) Social History Tobacco Use Types Packs/Day Years Used Date Smoking Tobacco: Former Cigarettes Q uit: 11/26/1999 Smokeless Tobacco: Never Alcohol Use Standard Drinks/Week Comments No 0 (1 standard drink = 0.6 oz pur e alcohol) Housing Instability Answer Date Recorde d Are you worried that in the next 2 months you may not have stable housing? No 05/28/2025 Food Access & Nutrition Answer Date Rec orded Do you have access to a vari ety of food including fruits and vegetables? Yes 05/28/2025 Health Literacy Answer Date Recorded How often do you need to hav e someone help you when you read instructions, pamphlets, or other written material from your doctor or pharmacy? Never 05/28/2025 Caregiver: How often do you need to have someone help you when you read instructions, pamphlets, or other written material from your doctor or pharmacy? Not on file 05/28/2025 Financial Risk Answer Date Recorded How hard is it for you to pa y for the very basics like food, housing, medical care, and air conditioning / heating? Not very hard 05/28/2025 Transportation Answer Date Recorded Has the lack of transportati on kept you from meetings, work, or from getting things needed for daily living? No Has the lack of transportati on kept you from medical appointments or from getting medications? No 05/28/2025 Social Isolation Answer Date Recorded How often do you feel lonely or isolated from th ose around you? Never 05/28/2025 Food Risk Answer Date Recorded Within the past 12 months we worried whether our food would run out before we got money to buy more. Never true 05/28/2025 Within the past 12 months th e food we bought just didn't last and we didn't have money to get more. Never true 05/28/2025 Dependent Care Answer Date Recorded Do you need help finding or paying for care for your loved ones. For example, child protection specialist or elderly care for an older adult? No 05/28/2025 Education Answer Date Recorded Do you think completing more education or training, like finishing a GED, going to college, or learning a trade, would be helpful for you? N/A 05/28/2025 Employment and Income Answer Date Recor ded During the last four weeks, have you been actively looking for work? No 05/28/2025 Living Situation Answer Date Recorded What is your living situation? 0 05/28/2025 Comments No Sex and Gender Information Value Date Recorded Sex Assigned at Female 11/10/2024 2:35 PM EST Legal Sex Female 5:43 AM EST Gender Identity Female 11/10/2024 2:35 PM EST Sexual Orientation Straight 11/10/2024 2: 35 PM EST documented as of this encounter Progress Notes * Kurt Alford PTA - 06/01/2025 8:30 AM EDT [facility] - Outpatient PHYSICAL THERAPY DAILY TREATMENT NOTE - OP Date: 06/01/2025 Visit Number: 3 Patient Name: Emma Prater : 1955 Age: 69 y.o. Gender: female Diagnosis: ICD-10-CM ICD-9-CM 1. Calcific tendonitis of right shoulder M75.31 726.11 Date of Onset/Surgery: 05/01/2023 Referring Provider: Gladys Rojas MD Insurance: Payor: [facility] / Plan: [facility] / Product Type: *No Product type* / Patient Identified by: Kurt Alford PTA Language: Video Veneer Press Operator service provided for pt. preferred language of Telugu. Veneer Press Operator # Gucci [id number] Medications: Current Outpatient Medications on File Prior [...] tablet (0.4 mg total) under the tongue. semaglutide (OZEMPIC) 2 mg/dose (8 mg/3 mL) injection pen Inject 2 mg under the skin every 7 (seven) days. [DISCONTINUED] semaglutide (Ozempic) 1 mg/dose (4 mg/3 mL) injection pen Inject 1 MG SUBCUTANEOUSLYEVERY 7 DAYS IN THE ABDOMEN, THIGHS OR UPPER ARM. ROTATE INJECTION SITES. No current facility-administered medications on file prior to visit. Allergies: has No Known Allergies. Precautions: Diabetic, Hx of cervical fusion Fall risk: No SUBJECTIVE Subjective Report: Patient reports R shoulder is a little painful today. Chart Reviewed: Yes Pain: 4/10 this morning more with lifting arm. TREATMENT INTERVENTION: Seated moist heat to R shoulder x 10 min at end of treatment no cost Manual Therapy: Supine posterior GH mobilizations Gr 3-4 3 x 30 sec Followed by PROM shoulder ER, flexion to tolerance Therapeutic Exercise: Supine shoulder ER cane x 10, 2-3 sec hold Standing scap retraction 2 x 10, 5 sec hold with Cornish T Band Wall slides 10 reps x 5 sec hold Home exercise program: Below to be done 1-2x per day Scap retractions x 10, 5 sec hold Supine shoulder ER cane x 10, 2-3 sec hold ASSESSMENT/Response to Treatment Good Shoulder flexion PROM improved after posterior GH mobs. Is demonstrating pain free ER AAROM today so added this to her home exercise program. Can combine some additional strengthening at next visits for scapular/rotator cuff. Patient Education: Education provided: home exercise program Education Provided To: Patient utilizing Explanation, Demonstration, and Printed Material mode(s) of education Response to Education: Verbal Understanding and Demonstrated Skills PLAN POC Development/Review: No Change in the Plan of Care; Participants: Patient Interventions Time Entry: Modalities: Therapeutic procedures: Manual Therapy Time Entry: 15 Therapeutic Exercise Time Entry: 15 Total Treatment Time: 30 mins Documentation completed by Kurt Alford PTA documented in this encounter Plan of Treatment Upcoming Encounters Date Type Department Care Team (Late st Contact Info) Description 06/08/2025 8:00 AM EDT Treatment [facility] [address] [phone] Kurt Alford PTA 06/09/2025 8:45 AM EDT Appointment Radiology Department - [address] [address] 06/10/2025 8:00 AM EDT Treatment [facility] [address] [address] Kurt Alford, SUPERVISOR COOPERAGE SHOP 06/15/2025 8:00 AM EDT Treatment [facility] [address] [address] Kurt Alford, SUPERVISOR [employer]OPERAGE [employer] 06/17/2025 8:00 AM EDT Treatment [facility] [address] [address] Kurt Alford, SUPERVISOR [employer]OPERAGE [employer]OP 06/22/2025 8:00 AM EDT Treatment [facility] [address] [address] Kurt Alford, SUPERVISOR [employer]AGE [employer] 06/24/2025 8:00 AM EDT Treatment [address] [address] Kurt Alford, SUPERVISOR COOPERAGE SHOP 06/29/2025 8:00 AM EDT Treatment [address] [address] Kurt Alford, SUPERVISOR [employer]OPERAGE [employer]OP 07/01/2025 8:00 AM EDT Office Visit Orthopedic Surgery [facility] [address] [address] Joi iHllman PA [address] [address] 07/01/2025 10:00 AM EDT Treatment [facility] [address] [address] Sun Elias, PT 11/30/2025 8:00 AM EST Office Visit Adult Medicine [address] [address] Kasandra Mehta MD [address] [place] [phone] documented as of this encounter Goals Goal Patient Goal Type Associated Problems Recent Progress Patient-Stated? Author PT STG x [address] [facility] 02/26/2025 General Yes Milton Cuellar [...] pain PT LTG x [address] [facility] 02/26/2025 General No Milton Cuellar [...] Primary documented in this encounter Care Teams Home Health Administrator Relationship Specialty Start Date End Date Kasandra Mehta MD [address] [place] [address] PCP - General 01/23/24 documented as of this encounter
--- OUTSIDE RECORDS SUMMARY | 2025-06-04 08:52 | XMS_ITS | Clinical Summary ---
Author Organization [facility] Address [address] [place] [address] [address] [place] [address] Care Team Providers Care Non Profit Job Titles Name Role Phone Unavailable Primary Care Provider [...] Encounters Date Type Department Care Team Description 05/11/2025 10:00 AM EDT Office Visit [facility] [address] [place] [address] Radha Hackett Dental calculus (Primary Dx); Periodontal disease; Gingival bleeding; Missing teeth, acquired from Last 3 Months Immunizations Immunization Administration Dates Next Due Td [...] Sign Reading Time Taken Comments Blood Pressure 128/76 05/11/2025 9:54 AM EDT Pulse 70 05/06/2024 10:50 AM EDT Temperature - - Respiratory Rate - - Oxygen Saturation - - Inhaled Oxygen Concentration - - Weight - - Height - - Body Mass Index - - Plan of Treatment Health Maintenance Due Date Last Done Comments CT Colonography 1955 Colonoscopy 1955 Colorectal Cancer Screening 1955 Depression Screening 1955 FIT DNA/Cologuard 1955 FIT 1957 FOBT 1955 SDOH Screening 1955 Sigmoidoscopy 1955 Alcohol/Substance Use Screening 1969 Hepatitis C Screening 1975 Pneumococcal Vaccine: 50+ Years (1 of 1 - PCV) 2007 DTaP/Tdap/Td Vaccines (1 - Tdap) 06/26/2017 06/25/2017, 02/13/2014 COVID-19 Vaccine ( season) 2024 11/10/2021, 03/08/2021, 02/08/2021 Dental X-Ray: Bitewings 05/07/2025 06/11/20 24, 08/07/2022, 03/01/2021 Dental Oral Exam 05/08/2025 11/06/2024, 09/2024, 08/07/2022, Additional history exists Influenza Vaccine (#1) 2025 Dental Prophylaxis 11/11/2025 05/11/2025, 1 01/07/2024, 05/06/2024, Additional history exists Tobacco Screening 05/11/2026 05/11/2025 Mammogram 01/20/2027 01/20/2025 Dental X-Ray: Full Mouth 05/07/2027 05/06/2024, 04/04/2021 RSV Patients and Patients Aged 60 years [...] Procedure Name Priority Date/Time Associated Diagnosis Comments CASE PRESENTATION, DETAILED AND EXTENSIVE TREATMENT PLANNING Routine 05/11/2025 10:00 AM EDT Dental calculus Periodontal disease Gingival bleeding Missing teeth, acquired TOPICAL APPLICATION OF FLUORIDE VARNISH Routine 05/11/2025 10:00 AM EDT Dental calculus Periodontal disease Gingival bleeding Missing teeth, acquired PROPHYLAXIS - ADULT Routine 05/11/2025 1 0:00 AM EDT Dental calculus Periodontal disease Gingival bleeding Missing teeth, acquired ORAL HYGIENE INSTRUCTIONS Routine 05/11/2025 10:00 AM EDT Dental calculus Periodontal disease Gingival bleeding Missing teeth, acquired PERIODIC ORAL EVALUATION - ESTABLISHED PATIENT Routine 11/06/2024 3:00 PM EST INTRAORAL - COMPLETE SERIES OF RADIOGRAPHIC IMAGES Routine 05/06/2024 11:00 AM EDT Acute gingival inflammation Periodontal disease Dental calculus Generalized gingival recession Gingival bleeding from Last 3 Months or Most Recently Relevant to Health Maintenance Insurance [facility] [employer] (O D-SNP) ELIZABETH SANCHEZ [id number] [facility] [address] [place] [id number] [address] [place] [address]
--- OUTSIDE RECORDS SUMMARY | 2025-06-04 08:52 | XMS_ITS | Data Portability ---
Author Organization [facility] Address [address] [place] [address] Care Team Providers Care Multimedia Services Coordinator Name Role Phone HIM CCA Referring Provider [phone] Assessment Encounter Date Assessment Date Assessment LastModified by Organization Details LastModified Time 03/10/2024 03/10/2024 I provided real -time medical direction via phone for this encounter, and was available for additional phone based assistance as needed. I have reviewed and agree with the Assessment and Plan as documented by the Conveyancer. We discussed the diagnostic uncertainty of home [...] to call 911- verbalized understanding of instruction [email or web address] Not available 03/10/2024 11:57:00 Plan of Treatment Reminders Order Date Submit Date Provider Last Modified By Organization Details Last Modified Time Details Appointments None recorded. Lab BMP, serum or plasma 2023 024 [email or web address] 0 [facility], [address] [place] [address], [phone] 4 12:01:00 rapid flu (A+B) 2023 024 [email or web address], [address] 4 11:56:35 rapid SARS CoV 2 Ag, QL IA, respiratory specimen 2023 024 [email or web address] [address], [address] 4 11:56:33 Referral None recorded. Procedures None recorded. Surgeries None recorded. Imaging None recorded. Medication Orders ketorolac 30 mg/mL injection solution 2023 024 [email or web address] 0 Not available 12:01:00 Patient TargetsNo targets recorded. Patient InstructionsNo instructions recorded. Reason for Referral None Reported. Results Created Date Observation Date Name Description Value Unit Range Abnormal Flag Note LastModifiedBy Organization Detail LastModifiedTime 03/10/2003/10/2024 BMP, serum or plasm a BUN 15 Not Available Main - [address], [address] [place] [address] 03/10/2024 11:59:38 03/10/20 24 03/10/2024 BMP, serum or plasm a Ca Ionize d calciu m 1.17 Not Available [address], [address] [place] [address] 03/10/2024 11:59:38 03/10/20 24 03/10/2024 BMP, serum or plasm a CI- 108 Not Available Main - [address], [address] [place] [address] 03/10/2024 11:59:38 03/10/20 24 03/10/2024 BMP, serum or plasm a CRE 0.6 Not Available Main - [address], [address] [place] [address] 03/10/2024 11:59:38 03/10/20 24 03/10/2024 BMP, serum or plasm a GLU 198 Not Available Main - Ins [address], [address] [place] [address] 03/10/2024 11:59:38 03/10/20 24 03/10/2024 BMP, serum or plasm a K+ 3.9 Not Available Main - [address], [address] [place] [address] 03/10/2024 11:59:38 03/10/20 24 03/10/2024 BMP, serum or plasm a Na+ 141 Not Available Main - [address], [address] [place] [address] 03/10/2024 11:59:38 03/10/20 24 03/10/2024 BMP, serum or plasm a tCO2 19 Not Available Main - [address], [phone] 03/10/2024 11:59:38 03/10/20 24 03/10/2024 rapid SARS CoV 2 Ag, QL IA, respi rator y speci men rapid SARS CoV 2 Ag, QL IA, respiratory specimen negati ve Not Available Main - [facility] ed [address] [place] [address], [phone] 03/10/2024 11:31:16 03/10/20 24 03/10/2024 rapid flu (A+B) Flu negati ve Not Available Main - [facility] ed [address] [place] [address], [phone] 03/10/2024 11:31:14 Result Notes None recorded. Medical [...] Available Not Avai lable Comfort EZ Pen [place] 33 gauge x 5/32 active Not Available [...] % 99 % 160.02 cm 98 [degF] 97347.7 2 g 18 /min 149/84 mm[Hg] Not [...] SNOMED-CT Code Diagnosis ICD10 Code Diagnosis Note [id number] Liana Morris MD Main - [facility] [address] [place] [address] 03/10/2024 11:29:39 03/10/2024 19:14:16 Influenza [id number] J11.1 resolving other than persistent cough-want to [...] Red flags reviewed with patient Rib pain [id number] R07.8 1 From cough, no crepitance to [...] Bates Member ID Guarantor Name 03/10/2024 1 [facility] - DOS ON OR AFTER 2023 - DUAL ELIGIBLE - HALF-WAY OPTIONS AND ONE CARE (MEDICARE REPLACEMENT/ADV ANTAGE - HMO) Emma Rodríguezgo [id number] Emma Woodson Moi Notes Date Note Type Note Provider Name and Address Organization Details Recorded Time 03/10/2024 text/html HPI: Member is 68 yo Yoruba speaking female, who was treated at [facility] on 03/06/24 for Flu and reports [...] .................. .................. .................. .................. .................. .................. ............... Conveyancer Note From Reji Schaefer: Smartcare visit for female patient with cough and rib pain. Pt presents conscious and alert. painter chassis utilized via phone. Pt states she was [...] Pt afebrile. Lung sounds clear. Consulted with [facility] who ordered covid and flu swabs, completed and both negative. [facility] ordered basic metabolic panel drawn and completed [...] use MDI properly Liana Morris MD [address] [facility], [place], [address], [place] [employer] 03/10/2024 14:04:41 OBGyn Episode No OBEpisode recorded.
--- OUTSIDE RECORDS SUMMARY | 2025-06-04 08:52 | XMS_ITS | Patient Health Record ---
Author Organization [facility] Address [address] [place] [address] Care Team Providers Care Computer Operations Supervisor Name Role Phone Tomy HUNTER, Asma Primary Care Provider Octavio Green [phone] Reason For Referral No Information Plan Of Treatment No Information Insurance Providers Payer Name Payer Address Payer Phone Subscriber Number Group Number Insured Name Patient Relationship to Insured Coverage Start Date Coverage End Date [facility] [address] [address] [place], [place] [id number] CARLO CHRISTENSEN Self - patient is the insured Medical (General) History Medical History History ICD Code colonoscoy done elsewhere in 2008 diabetes mellitus coronary atery disease Surgical History Surgery Date(Month/Year) hemorrhoid and fissure surgery breast reduction appendectomy
[2025-06-04 09:08] VITALS: BMI 27.2
--- NOTE | 2025-06-04 09:08 | A.OFFVIS_ITS ---
VS Expanded 06/04/25 09:08 Height 5 ft 3 in Weight 153 lb 7.068 oz BMI 27.2 Intake Visit Reasons: T2DM Allergies No Known Allergies Allergy (Verified 04/21/25 08:34) Nutrition Presentation Details: Pt presents for MNT for T2DM 14 d bg average at 124 mg/dl fluids: reports only in meds 8-12 oz/d Pt reports having a light meal in AM B: coffee , piece of toast and butter or egg L: at vcare: rice/chicken, salad, milk Dinner: tuna sand or crackers with cheese and fruit or yogurt physical activity: sedentary currently food frequency fruits: 2/d milk: 1-2/d fish :0-1/d PFSH Medical History Fatty liver Fibroids PMB (postmenopausal bleeding) Osteopenia Dyslipidemia Diabetic polyneuropathy associated with type 2 diabetes mellitus Diabetes type 2, uncontrolled Diabetes 1.5, managed as type 1 Panic anxiety syndrome Hospital discharge follow-up Vitamin D deficiency Carpal tunnel syndrome Incontinence Hemorrhoids Tubal occlusion Insomnia Elevated cholesterol Depression Hypertension IDDM (insulin dependent diabetes mellitus) Surgical History Hx of cataract surgery History of neck surgery History of surgery History of colonoscopy History of hemorrhoidectomy History of carpal tunnel release History of bladder surgery S/P sinus surgery Hx of breast reduction, elective Hx of appendectomy H/O tubal ligation History of heart artery stent Family History Father No problems noted. Mother Heart disease Lung cancer Brother Liver cancer Brother Renal cancer HTN (hypertension) Diabetes mellitus Maternal Grandfather No problems noted. Maternal Grandmother No problems noted. Paternal Grandfather No problems noted. Paternal Grandmother No problems noted. Maternal Uncle Diabetes mellitus Paternal Uncle Diabetes mellitus Son No problems noted. Daughter No problems noted. Family/Other History of breast cancer Social History Housing: House Alcohol intake: current Alcohol intake frequency: holidays/special occasions only Patient Tobacco Use Status: Former Tobacco user e-Cigarette/Vaping Use: Never Used service: No Current occupational status: disabled Current occupation: right hand dominant Sexual orientation: Straight/Heterosexual Gender identity: Female Cognitive needs: No Hearing needs: No Vision needs: Yes Female Reproductive History Menstrual Age of Menarche: 14 Assessment & Plan Assessment & Plan (1) Diabetic polyneuropathy associated with type 2 diabetes mellitus: Code(s): E11.42 - Type 2 diabetes mellitus with diabetic polyneuropathy Category: Medical Plan: Rec 1500 ADA meal plan? (40% carb, 30% fat, 30% prot) Used wt : , 73 kg (03/20) Rec fluid as per 25 ml/kg bw:? 1800 Rec NA? 1500 mg/d REc fiber: 25 g /d Educate patient on: (R= Reviewed, V = verbalizes understanding N/R= Needs re view N/A= not applicable) * Food sources of carbohydrates and serving adequate serving sizes : R V * Difference between complex carbohydrates and simple carbohydrates, role of fiber: R V * Differences between fats (MUFA/PUFA/saturated fats, trans fats) and food sources of various fats: R V * Food sources of sodium and salt and healthy modifications for heart health and kidney health: R v * Vitamins and minerals: R V * How to interpret food labels: R V * Healthy Plate method concept: R V * Physical activity: benefits and precaution: R V * REviewed empty calorie foods vs nutrient dense foods and BG and overall health: R, V Patient Instructions: -Include fish twice a week keep hydrated by having water with meals/snacks, have milk 1-2 cups per day at least (try farilife milk) Coding Level of Care Code Nutr Indiv Subseq (04604) Diagnoses Diabetic polyneuropathy associated with type 2 diabetes mellitus E11.42 Time Spent (min) 30
== END 2025-06-04 09:33 | disposition home or self-care (01) ==
LOC: HO.ENCR 08:39
PROVIDERS: PCP Internal Medicine; Visit Provider Dietitian, Registered
DX: E11.42 Type 2 diabetes mellitus with diabetic polyneuropathy (principal)

== ENCOUNTER → 2025-06-04 08:39 | Outpatient (BNVA) | payer OTHER, SELFPAY | PROVIDERS: PCP Internal Medicine; Visit Provider Dietitian, Registered | DX: E11.42 Type 2 diabetes mellitus with diabetic polyneuropathy (principal) | CPT/HCPCS: 97803 ==

== ENCOUNTER 2025-07-17 09:13 | Outpatient (AMB) | payer OTHER, SELFPAY ==
--- NOTE | 2025-07-17 09:20 | MHC.OFFVIS ---
Vital Signs 07/17/25 09:23 Height 5 ft 3 in Weight 160 lb 0.889 oz BMI 28.3 BP 114/56 L Blood Pressure Location Lt brachial Position Sitting Pulse 105 H Pulse Source Pulse Oximeter Pulse Oximetry (%) 97 Oxygen Delivery Method Room Air Intake Visit Reasons: T2DM Intake Note: Patient present today to follow up on Type 2 Diabetes Mellitus. Last seen by Tiffanie Gooden on 04/08/2025. Patient receives Freestyle Lisa 3 Plus through: [facility] Pharmacy Last Diabetic Eye exam: few months ago Last Podiatry Visit: Does not see a Industrial Commercial Groundskeeper Random Glucose: 229 mg/dl HgA1C: 6.8% 07/17/2025 At Risk Specialist Required: Yes At Risk Specialist Language: Construction Field Engineer Services: At Risk Specialist Present At Risk Specialist Name: Silvana [id number] Information Interpreted: non-clinical & clinical Accompanied by: Self / Same As Patient Allergies No Known Allergies Allergy (Verified 07/17/25 09:23) Medication List - Last Reconciled 07/17/25 by ELIZABETH Jackson albuterol sulfate 90 mcg/actuation 2 inhalations inhalation Q4-6H PRN albuterol sulfate 0.63 mg (3 mL) inhalation QID PRN blood sugar diagnostic (FreeStyle Precision Wellington Strips) As directed once a day blood sugar diagnostic (FreeStyle Lite Strips) As directed three times a day if glucose sensor fails or to confirm readings blood-glucose meter (FreeStyle Lite Meter kit) As directed for use with freestyle test strips blood-glucose sensor (FreeStyle Lisa 3 Plus Sensor device) Apply new sensor every 15 days empagliflozin (Jardiance) 25 mg PO DAILY esomeprazole magnesium 20 mg PO DAILY glucose (Dex4 Glucose Quick Dissolve) 16 grams (4 x 4 gram) PO Q15M PRN hydroxyzine pamoate 25 mg PO DAILY PRN insulin glargine (Lantus Solostar U-100 Insulin) 20 units (0.2 mL) subcut QAM insulin lispro subcutaneously 3 times a day; 10 units before breakfast and 12 units before lunch and dinner 30 days lancets (FreeStyle Lancets) 4 times a day prn sensor failure or to confirm glucose melatonin 10 mg PO BEDTIME PRN melatonin mg PO metformin 1,000 mg PO BID mirtazapine 15 mg PO BEDTIME peg 3350-electrolytes 236-22.74-6.74 -5.86 gram (Golytely) 240 mL PO Q10M pen needle, diabetic (Easy Comfort Pen Bulan) USE DIRECTED TWICE DAILY [shower chair Shower chair] tirzepatide (Mounjaro) 2.5 mg (0.5 mL) subcut QWEEK [Updraft machine As directed] HPI Comments Details: This is a 69-year-old female with a past medical history of hepatic steatosis, type 2 diabetes, [place], hypertension, CAD, hyperlipidemia and depression presenting for diabetic management. This is my 1st visit with the patient. She was last seen by my colleague on 04/08/2025. She was diagnosed with type 2 diabetes 27 years ago There is a family history of diabetes in 2 of her brothers and her uncles and aunts. Denies family history of Type I DM. Her hemoglobin A1c is 6.8% today 07/17/25. Current medications: Jardiance 25 mg daily, Ozempic 2 mg weekly, metformin 1000 mg twice daily, Lantus 20 units in the morning, Humalog 8-10-10 before meals. She is frustrated because she is gaining weight on Ozempic. CGM data reviewed for the past 2 weeks Active CGM 89% Average glucose 178 GMI 7.6% Very high 7% High 35% Target range 58% 0% hypoglycemia She has postprandial hyperglycemia and hyperglycemia overnight. Micro and macrovascular complications: Neuropathy, CAD She was referred to Gastroenterology for hepatic steatosis and colon cancer screening. She was upset because she prepped for the colonoscopy, and when she got there she was told the appointment was not in the computer. I referred her anew to [facility] at her request. Denies low blood sugars recently. ROS: Constitutional: No unexplained weight loss, fever, chills, fatigue or night sweats. Eyes: No vision changes Respiratory: No shortness of breath Cardiovascular: No chest pain Gastrointestinal: No anorexia, nausea, vomiting or diarrhea. No abdominal pain or blood in stool. Neurologic: No numbness or tingling in the extremities. Endocrine: No cold or heat intolerance. No polyuria or polydipsia. Physical exam: Constitutional: Alert, in no distress. Head: Normocephalic. Neck: Supple, Full range of motion. No lymphadenopathy. No palpable thyroid masses. Respiratory: Clear to auscultation. Cardiovascular: S1 S2 regular. No murmurs. Right foot: Warm and well perfused. No clubbing, cyanosis or edema. Intact DP pulse. Decreased vibratory sensation. Intact sensation to monofilament. No open wounds. Left foot: Warm and well perfused. No clubbing, cyanosis or edema. Intact DP pulse. Decreased vibratory sensation. Intact sensation to monofilament. No open wounds. [facility] Medical History (Updated 07/17/25 @ 10:17 by ELIZABETH Jackson) Overweight Controlled type 2 diabetes mellitus Fatty liver Fibroids PMB (postmenopausal bleeding) Osteopenia Dyslipidemia Diabetic polyneuropathy associated with type 2 diabetes mellitus Diabetes type 2, uncontrolled Diabetes 1.5, managed as type 1 Panic anxiety syndrome Hospital discharge follow-up Vitamin D deficiency Carpal tunnel syndrome Incontinence Hemorrhoids Tubal occlusion Insomnia Elevated cholesterol Depression Hypertension IDDM (insulin dependent diabetes mellitus) Surgical History Hx of cataract surgery History of neck surgery History of surgery History of colonoscopy History of hemorrhoidectomy History of carpal tunnel release History of bladder surgery S/P sinus surgery Hx of breast reduction, elective Hx of appendectomy H/O tubal ligation History of heart artery stent Family History Father No problems noted. Mother Heart disease Lung cancer Brother Liver cancer Brother Renal cancer HTN (hypertension) Diabetes mellitus Maternal Grandfather No problems noted. Maternal Grandmother No problems noted. Paternal Grandfather No problems noted. Paternal Grandmother No problems noted. Maternal Uncle Diabetes mellitus Paternal Uncle Diabetes mellitus Son No problems noted. Daughter No problems noted. Family/Other History of breast cancer Social History Housing: House Alcohol intake: current Alcohol intake frequency: holidays/special occasions only Patient Tobacco Use Status: Former Tobacco user e-Cigarette/Vaping Use: Never Used service: No Current occupational status: disabled Current occupation: right hand dominant Sexual orientation: Straight/Heterosexual Gender identity: Female Cognitive needs: No Hearing needs: No Vision needs: Yes Female Reproductive History Menstrual Age of Menarche: 14 Physical Exam Vital Signs: Last Vital Signs Pulse 105 H 07/17/25 09:23 BP 114/56 L 07/17/25 09:23 Pulse Ox 97 07/17/25 09:23 Oxygen Delivery Method Room Air 07/17/25 09:23 BMI result Body Mass Index 28.3 Office Procedures Glucose Monitoring Details Details: See [facility] [address] - Glucose monitoring, continuous-physician I&R Procedure code (CPT) selection complete Results AMB Hemoglobin A1c AMB Hemoglobin A1c 6.8 % Last Edit by JACOBO Stevens on 07/17/25 09:41 Results Reviewed Results Reviewed: Laboratory Last Values Glucose (Clinic) 229 mg/dL (60-115) H 07/17/25 09:31 Hgb A1c (Clinic) 6.8 % (4.0-6.0) H 07/17/25 09:35 Laboratory Tests 08/08/22 08/19/24 08/19/24 16:10 08:02 08:12 Plt Count Creatinine Estimated GFR AST ALT B-Natriuretic Peptide Triglycerides 233 H Cholesterol 189 LDL Cholesterol, Calc 105 H HDL Cholesterol 38 L Vitamin B12 746 TSH Urine Creatinine 89.01 Urine Microalbumin 11.0 Microalb/Creat Ratio 12.3 08/22/24 11/17/24 10:36 15:45 Plt Count 179 Creatinine 0.80 Estimated GFR > 60 AST 42 H ALT 72 H B-Natriuretic Peptide < 10 Triglycerides Cholesterol LDL Cholesterol, Calc HDL Cholesterol Vitamin B12 TSH 1.24 Urine Creatinine Urine Microalbumin Microalb/Creat Ratio Assessment & Plan Assessment & Plan (1) Controlled type 2 diabetes mellitus: Code(s): E11.9 - Type 2 diabetes mellitus without complications Category: Medical (2) Fatty liver: Code(s): K76.0 - Fatty (change of) liver, not elsewhere classified Category: Medical (3) Overweight: Code(s): E66.3 - Overweight Category: Medical Plan In summary this is a 69-year-old female with controlled type 2 diabetes with complications. She is frustrated by weight gain despite max dose of Ozempic. She has gained 7 lb since her last appointment in the EMR. We will switch to Mounjaro 2.5 mg weekly which may be better at promoting weight loss. Continue Jardiance 25 mg daily, metformin 1000 mg twice daily, Lantus 20 units in the morning Increase lispro to 10 units before breakfast and 12 units before lunch and dinner Written instructions for hypoglycemia reviewed with the patient. Sent glucose tablets to pharmacy. If they are not covered she can purchase them [id number]. Avoid alcohol and processed foods. Follow a low-cholesterol diet. Refer to [facility] for colon cancer screening and hepatic steatosis. Declined referral to dietitian. She was seen by the dietitian in the past. Labs ordered. Follow up in 6 weeks for type 2 diabetes to review meds. Orders: Orders AMB Hemoglobin A1c Today E11.649 - Type 2 diabetes mellitus with hypoglycemia without coma Vitamin B12 Today I10 - Essential (primary) hypertension, Z91.89 - Other specified personal risk factors, not elsewhere classified Lipid Panel Today E78.5 - Hyperlipidemia, unspecified, I10 - Essential (primary) hypertension AMB Glucose Monitoring Today E11.9 - Type 2 diabetes mellitus without complications Microalbumin, Random (w Creat) Today E11.9 - Type 2 diabetes mellitus without complications, I10 - Essential (primary) hypertension Alanine Aminotransferase Today I10 - Essential (primary) hypertension, R79.89 - Other specified abnormal findings of blood chemistry Aspartate Amino Transferase Today I10 - Essential (primary) hypertension Creatinine Today E11.9 - Type 2 diabetes mellitus without complications, I10 - Essential (primary) hypertension Referrals Gastroenterology Referral K76.0 - Fatty (change of) liver, not elsewhere classified, Z12.11 - Encounter for screening for malignant neoplasm of colon Medications: New tirzepatide (Mounjaro) for 4 weeks 2.5 mg (0.5 mL) subcut QWEEK 2 mL 0RF glucose (Dex4 Glucose Quick Dissolve) until symptoms of low blood sugar are controlled 16 grams (4 x 4 gram) PO Q15M PRN 30 tabs 3RF hypoglycemia Changed From insulin lispro 10 units (0.1 mL) subcut TID 30 days 9 mL 11RF E11.649 - Type 2 diabetes mellitus with hypoglycemia without coma To insulin lispro subcutaneously 3 times a day; 30 days 9 mL 5RF E11.649 - Type 2 diabetes mellitus with hypoglycemia without coma From insulin lispro subcutaneously 3 times a day; 30 days 9 mL 5RF E11.649 - Type 2 diabetes mellitus with hypoglycemia without coma To insulin lispro subcutaneously 3 times a day; 10 units before breakfast and 12 units before lunch and dinner 9 mL 5RF 30 days E11.649 - Type 2 diabetes mellitus with hypoglycemia without coma Patient Instructions: If you experience low blood sugar, treat this by eating a chewable fruit candy like skittles or jelly beans (about 8 pieces), 4 ounces (1/2 cup) of fruit juice (not diet), 1 tablespoon of honey or 4 glucose tablets. If your blood sugar is under 50, take double the amount of one of the above. Recheck your blood sugar in 15 minutes. Current medications: Continue Jardiance 25 mg daily, metformin 1000 mg twice daily, Lantus 20 units in the morning Increase lispro to 10 units before breakfast and 12 units before lunch and dinner If insurance approves Mounjaro, start it 1 week after the last dose of Ozempic then stop Ozempic. Si experimenta niveles bajos de az?car en la luis, tr?telo comiendo un caramelo masticable de fruta amee Skittles o Jelly Beans (aproximadamente 8 piezas), 113 ml (1/2 taza) de jugo de fruta (no de dieta), 1 cucharada de miel o 4 tabletas de glucosa. Si carias nivel de az?car en la luis es inferior a 50, tome el doble de la cantidad de rachel de los anteriores. Vuelva a medir carias nivel de az?car en la luis en 15 minutos. Medicamentos actuales: Contin?e con Jardiance 25 mg al d?a, metformina 1000 mg dos veces al d?a, Lantus 20 unidades por la ma?stephania. Aumente la dosis de lispro a 10 unidades antes del desayuno y 12 unidades antes del almuerzo y la saul. Si el seguro aprueba Mounjaro, comience a tomarlo 1 semana despu?s de la ?ltima dosis de Ozempic y luego suspenda el tratamiento. Coding Level of Care Code Est Pt Level 4 (77956) Diagnoses Controlled type 2 diabetes mellitus E11.9 Fatty liver K76.0 Overweight E66.3 CPT Codes Details - CPT: 92457 - Glucose monitoring, continuous-physician I&R ([id number])
--- OUTSIDE RECORDS SUMMARY | 2025-07-17 09:21 | XMS_ITS | Clinical Summary ---
Author Organization 175 [facility] Address 175 [place] [address] Phone Care Team Providers Care Scraper Operator Name Role Phone Kasandra Mehta MD [...] (0.4 mg total) under the tongue. Active insulin aspart (NovoLOG Flexpen U-100 Insulin) [...] SHORTNESS OF BREATH OR WHEEZING 4 Active esomeprazole (NexIUM) [address] capsule Take 1 capsule (20 mg total) by mouth 1 (one) time each day before breakfast. Do not open capsule. Active semaglutide (OZEMPIC) 2 mg/dose (8 mg/3 mL) injection pen Inject 2 mg under the skin every 7 (seven) days. Active celecoxib (CeleBREX) 200 mg capsule Take 1 capsule (200 mg total) by mouth 1 (one) time each day. 30 capsule 2 09/29/20 25 Active Active Problems Problem Noted Date Diagnosed Date Gastroesophageal reflux disease 05/28/2025 Assessment & Plan (05/28/2025 11:16 AM EDT): Well controlled on esomeprazole. Will continue to medication. Calcific tendonitis of right shoulder 01/09/2025 Surgery follow-up 01/09/2025 Diabetes mellitus due to und erlying condition with hyperosmolarity without coma, without long-term current use of insulin ([facility] V24, [facility] V28) 07/25/2024 Assessment & Plan (05/28/2025 8:46 AM EDT): Fair control of diabetes. Patient will continue with yearly Podiatric and Ophthomologic evaluations.Will consider Angiotensin Converting Enzyme Inhibitor for renal protection. Continue Ozempic, lispro, glargine, Jardiance, and metformin. Encouraged to keep the appointments with the specialist. Patient had some blood tests with her plaster tender. A1c: 7.4 Assessment & Plan (11/27/2024 11:44 AM EST): poor control of diabetes. Patient will continue with yearly Podiatric and Ophthomologic evaluations.Will consider Angiotensin Converting Enzyme Inhibitor for renal protection. Continue Ozempic, lispro, glargine, Jardiance, and metformin. Encouraged to keep the appointments with the specialist. Patient had some blood tests with her plaster tender. A1c: 7.4 De Quervain's tenosynovitis 07/25/2024 Postoperative wound infection 07/17/2023 Cervical cord compression wi th myelopathy ([facility] V24, [facility] V28) 01/08/2023 Overview (09/14/2024): Last Assessment & [...] Encounters Date Type Department Care Team Description 07/01/2025 10:00 AM EDT Treatment [address] [phone] Sun Elias PT Calcific tendonitis of right shoulder (Primary Dx); Chronic right shoulder pain 07/01/2025 8:00 AM EDT Office Visit Orthopedic Surgery [facility] 160 175 [facility] [address] [place] [phone] Joi Hillman PA Calcific tendonitis of right shoulder (Primary Dx); Chronic right shoulder pain; Biceps tendinitis of right upper extremity 06/29/2025 8:00 AM EDT Treatment [facility] 175 [facility] [address] [place] [phone] Kurt Alford PTA Calcific tendonitis of right shoulder (Primary Dx); Chronic right shoulder pain 06/24/2025 8:00 AM EDT Treatment [facility] [address] [phone] Kurt Alford PTA Calcific tendonitis of right shoulder (Primary Dx) 06/22/2025 8:00 AM EDT Treatment [address] [phone] Kurt Alford, HUNTER Calcific tendonitis of right shoulder (Primary Dx); Chronic right shoulder pain 06/18/[address] [phone] Kasandra Dunne MD VNA 06/17/2025 8:00 AM EDT Treatment [address] [phone] Kurt Alford PTA Calcific tendonitis of right shoulder (Primary Dx); Chronic right shoulder pain 06/15/2025 8:00 AM EDT Treatment [address] [phone] Kurt Alford PTA Calcific tendonitis of right shoulder (Primary Dx); Chronic right shoulder pain 06/10/2025 8:00 AM EDT Treatment [address] [phone] Kurt Alford, LINER HELPER Calcific tendonitis of right shoulder (Primary Dx) 06/09/2025 8:31 AM EDT - 06/09/2025 11:59 PM EDT Hospital Encounter Radiology Department - [address] [phone] Neck pain Discharge Disposition: Home or Self Care 06/08/2025 8:00 AM EDT Treatment [address] [phone] Kurt Alford LINER HELPER Calcific tendonitis of right shoulder (Primary Dx) 06/03/2025 2:28 PM EDT - 06/03/2025 11:59 PM EDT Hospital Encounter [facility] MRI [address] [place] [phone] Calcific tendonitis of right shoulder; Chronic right shoulder pain Discharge Disposition: Home or Self Care 06/03/2025 8:00 AM EDT Treatment [facility] [address] [phone] Kurt Alford PTA Calcific tendonitis of right shoulder (Primary Dx) 06/01/2025 8:30 AM EDT Treatment [address] [phone] Kurt Alford PTA Calcific tendonitis of right shoulder (Primary Dx) 05/28/2025 8:30 AM EDT Office Visit Adult Medicine [address] [phone] Kasandra Dunne MD Type 2 diabetes mellitus without complication, without long-term current use of insulin (CMS/HCC V24, CMS/HCC V28) (Primary Dx); Gastroesophageal reflux disease, unspecified whether esophagitis present; Neck pain; Encounter for screening involving social determinants of health (SDoH) 05/21/2025 8:30 AM EDT Treatment [address] [phone] uSn Elias PT Calcific tendonitis of right shoulder (Primary Dx) 05/20/2025 9:45 AM EDT Office Visit Orthopedic Surgery [facility] 160 175 [facility] 160 [place] [phone] Joi Hillman PA Calcific tendonitis of right shoulder (Primary Dx); Chronic right shoulder pain 05/18/2025 Telephone Adult Medicine [address] [phone] Kasandra Dunne MD Advice Only 05/01/2025 8:30 AM EDT Evaluation [address] [place] [phone] Curt, Sun, PT Calcific tendonitis of right shoulder (Primary Dx) from Last 3 Months Immunizations Name Administration [...] finger release OTHER SURGICAL HISTORY 01/16/2023 PROCEDURE: KS ARTHRD ANT INTERDY CERVCL BELW C2 EA [...] for your loved ones. For example, child psychology teacher or elderly care for an older adult? [...] Sign Reading Time Taken Comments Blood Pressure 117/72 05/28/2025 8:16 AM EDT Pulse 91 05/28/2025 8:16 AM EDT Temperature 36.2 C (97.1 F) 05/28/2025 8:16 AM EDT Respiratory Rate 13 05/28/2025 8:16 AM EDT Oxygen Saturation 92% 11/20/2024 10:01 AM EST Inhaled Oxygen Concentration - - Weight 69.9 kg (154 lb 3.2 oz) 05/28/2025 8:16 A M EDT Height 160 cm (5' 3 ) 05/28/2025 8:16 AM EDT Body Mass Index 27.32 05/28/2025 8:16 AM EDT Plan of Treatment Upcoming Encounters Date Type Department Care Team (Late st Contact Info) Description 07/23/2025 8:00 AM EDT Treatment [facility] [address] [phone] Sun Elias, PT 07/24/2025 11:00 AM EDT Office Visit Orthopedic Surgery [facility] [address] [phone] Claudio Tafoya MD [address] [address] 07/29/2025 8:00 AM EDT Treatment [facility] [address] [phone] Kurt Alford, HUNTER 08/06/2025 8:00 AM EDT Treatment [address] [phone] Sun Elias, PT 11/30/2025 8:00 AM EST Office Visit Adult Medicine [address] [phone] Kasandra Mehta MD [address] [place] [address] Health Maintenance Due Date Last Done Comments RSV Immunization Adult Patients (1 - Risk 60-74 years 1-dose series) 2017 Cholesterol Screening (Lipid Panel) 11/05/2022 Colorectal Cancer Screening: Colonoscopy 11/05/2022 Hepatitis C Screening 11/05/2022 Medicare Annual Wellness Visit 11/05/2022 COVID-19 Vaccine (2023-2 5 season) 2024 11/10/2021, 03/08/2021, 02/08/2021 Diabetes: Annual Urine Albumin-Creatinine Ratio (uACR) 09/04/2024 Depression Screening 11/26/2024 Diabetes: Blood Sugar Contro l Test (HGBA1C) 01/23/2025 07/25/2024 Diabetes: Annual Retina Eye Exam 02/12/2025 02/13/2024 Diabetes: Annual GFR (Glomerular Filtration Rate) 07/25/2025 07/25/2024 Diabetes: Annual Foot Exam 08/15/2025 08/15/2024 Falls Risk Assessment 08/15/2025 08/15/2024 Social Influencers of Health Screening 05/28/2026 05/28/2025 Breast Cancer Screening 01/20/2027 01/20/2025 DTaP,Tdap,and Td [...] on patient's age to complete this topic Pneumococcal Vaccine: 50+ Years Discontinued RSV Immunization Patients Under 20 months Aged Out No longer eligible based on patient's age to complete this topic Varicella Vaccines Aged Out No longer eligible based on patient's age to complete this topic Goals Goal Patient Goal Type Associated Problems Recent Progress Patient-Stated? Author PT STG x 8 visits from [facility] 02/26/2025 General Yes Milton Cuellar, PT Note: [] Pt will increase appleys scratch test IR to mid L spine, [] Pt will increase right shoulder abd active ROM to 115 degrees, [] Pt will increase right shoulder flexion active ROM to 140 degrees, [] Pt will decrease waking frequency to 1 a night due to pain PT LTG x 14 visits from [facility] 02/26/2025 General Milton Wiseman PT Note: [] Pt will be able [...] Comments XR SHOULDER 2+ VIEWS RIGHT Routine 07/01/2025 7:57 AM EDT Pain US HEAD NECK SOFT TISSUE Routine 06/09/2025 8:46 AM EDT Neck pain MR UPPER EXTREMITY JOINT WO CONTRAST RIGHT Routine 06/03/2025 4:59 PM EDT Calcific tendonitis of right shoulder Chronic right shoulder pain MG MAMMO DIGITAL DIAGNOSTIC W ABEBE BILAT Routine 01/20/2025 1:09 PM EST BD BONE DENSITY DXA AXIAL SKELETON Routine 12/29/2024 8:38 AM EST Osteoporosis screening from Last 3 Months or Most Recently Relevant to Health Maintenance Results * XR Shoulder 2+ Views Right (07/01/2025 7:57 AM EDT) Anatomical Region Laterality Modality Upper Extremities, Shoulder Right Comp uted Radiography Narrative 07/01/2025 8:21 AM EDT Date of Visit: 07/01/25 Reason for visit: Right shoulder pain Views: AP, Grashey, Y-view, and Axillary right shoulder Comparison: 01/09/25 Findings: Humeral head appears smooth. Glenohumeral joint space and articular margins are intact. Scapular Y and axillary views show the glenohumeral joint located and centered Glenohumeral space with mild narrowing Calcification adjacent to the greater tuberosity remains unchanged from previous exam. No fractures/ dislocations noted Impression: Right shoulder: No acute osseous pathology Mild degenerative changes as noted above Calcific tendonitis noted as above Read by: Joi Hillman PA-C us Joi JOHNSON IMG XR PROCEDURES Final Resul t * US Head Neck Soft Tissue (06/09/2025 8:46 AM EDT) Anatomical Region Laterality Modality Head and Neck Ultrasound 06/09/2025 1:52 PM EDT Impressions 06/09/2025 1:56 PM EDT No thyromegaly. Subcentimeter right thyroid nodule. No sonographic abnormality in the right parotid gland, the palpable area of concern. POS - [id number] -------- FINAL REPORT -------- Dictated By: Jacinta Burgos Dictated Date: 06/09/2025 13:52 ET Assigned Physician: Jacinta Burgos Reviewed and Electronically Signed By: Jacinta Burgos Signed Date: 06/09/2025 13:56 ET Workstation ID: [id number] Transcribed By: Self Edit Transcribed Date: 06/09/2025 13:52 ET Narrative 06/09/2025 1:56 PM EDT EXAM: Thyroid ultrasound HISTORY: Neck pain. Mass sensation on the right. COMPARISON: None FINDINGS: Thyroid gland is not enlarged: right lobe measures 4.3 x 1.6 x 1.3 cm, left lobe measures 3.5 x 1.2 x 1.6 cm, and the isthmus measures 0.4 cm in thickness. Thyroid parenchyma appears homogeneous without hypervascularity on color Doppler. 0.6 x 0.5 x 0.4 cm isoechoic predominantly solid nodule in the right lower lobe. Margins are smooth, wider than tall, possible echogenic foci. Patient delineated the palpable lump in the region of the right parotid gland. Right parotid gland is homogeneous without a focal solid or cystic lesion. No shadowing stone. Right parotid gland has similar appearance to the contralateral gland. Procedure Note Jacinta Burgos MD - 06/09/2025 EXAM: Thyroid ultrasound HISTORY: Neck pain. Mass sensation on the right. COMPARISON: None FINDINGS: Thyroid gland is not enlarged: right lobe measures 4.3 x 1.6 x 1.3 cm,left lobe measures 3.5 x 1.2 x 1.6 cm, and the isthmus measures 0.4 cm inthickness. Thyroid parenchyma appears homogeneous without hypervascularityon color Doppler. 0.6 x 0.5 x 0.4 cm isoechoic predominantly solid nodule in the right lowerlobe. Margins are smooth, wider than tall, possible echogenic foci. Patient delineated the palpable lump in the region of the right parotidgland. Right parotid gland is homogeneous without a focal solid or cysticlesion. No shadowing stone. Right parotid gland has similar appearance tothe contralateral gland. IMPRESSION: No thyromegaly. Subcentimeter right thyroid nodule. No sonographic abnormality in the right parotid gland, the palpable areaof concern. POS - [id number] -------- FINAL REPORT -------- Dictated By: Jacinta Burgos Dictated Date: 06/09/2025 13:52 ET Assigned Physician: Jacinta Burgos Reviewed and Electronically Signed By: Jacinta Burgos Signed Date: 06/09/2025 13:56 ET Workstation ID: [id number] Transcribed By: Self Edit Transcribed Date: 06/09/2025 13:52 ET us Kasandra Mehta MD IMG US PROCEDURES Final Result * MR Upper Extremity Joint wo Contrast Right (06/03/2025 4:59 PM EDT) Anatomical Region Laterality Modality Upper Extremities Magnetic Reson ance 06/03/2025 3:53 PM EDT Impressions 06/03/2025 3:57 PM EDT 1. Calcific tendinitis of the supraspinatus. 2. Tendinopathy of the intra-articular long biceps tendon. 3. Mild degenerative changes of the acromioclavicular joint. -------- FINAL REPORT -------- Dictated By: Gilles Ty Dictated Date: 06/03/2025 15:53 ET Assigned Physician: Gilles Ty Reviewed and Electronically Signed By: Gilles Ty Signed Date: 06/03/2025 15:57 ET Workstation ID: [id number] Transcribed By: Self Edit Transcribed Date: 06/03/2025 15:53 ET Narrative 06/03/2025 3:57 PM EDT PROCEDURE: MRI of the right shoulder without intravenous contrast. HISTORY: Shoulder pain, rotator cuff disorder suspected, xray done. COMPARISON: None. TECHNIQUE: Multiplanar multisequence MRI of the right shoulder without intravenous contrast administration. FINDINGS: Rotator cuff: Musculature is normal in signal and bulk. No cuff tear or tendinopathy. 5 mm focus of low signal within the anterior supraspinatus tendon with mild adjacent soft tissue edema, suspicious for calcific tendinitis. Biceps: The long biceps tendon is in a normal position in the bicipital groove. Tendinopathy of the intra-articular segment. Labrum: No visible tear. Glenohumeral joint: Mild cartilage thinning, most pronounced in the central glenoid. No joint effusion. Acromioclavicular joint: Mild degenerative change. Type I acromion. Ligaments: The glenohumeral ligaments appear normal. Other: No other findings. Procedure Note Gilles Ty MD - 06/03/2025 PROCEDURE: MRI of the right shoulder without intravenous contrast. HISTORY: Shoulder pain, rotator cuff disorder suspected, xray done. COMPARISON: None. TECHNIQUE: Multiplanar multisequence MRI of the right shoulder withoutintravenous contrast administration. FINDINGS: Rotator cuff: Musculature is normal in signal and bulk. No cuff tear ortendinopathy. 5 mm focus of low signal within the anterior supraspinatustendon with mild adjacent soft tissue edema, suspicious for calcifictendinitis. Biceps: The long biceps tendon is in a normal position in the bicipitalgroove. Tendinopathy of the intra-articular segment. Labrum: No visible tear. Glenohumeral joint: Mild cartilage thinning, most pronounced in thecentral glenoid. No joint effusion. Acromioclavicular joint: Mild degenerative change. Type I acromion. Ligaments: The glenohumeral ligaments appear normal. Other: No other findings. IMPRESSION: 1. Calcific tendinitis of the supraspinatus. 2. Tendinopathy of the intra-articular long biceps tendon. 3. Mild degenerative changes of the acromioclavicular joint. -------- FINAL REPORT -------- Dictated By: Gilles Ty Dictated Date: 06/03/2025 15:53 ET Assigned Physician: Gilles Ty Reviewed and Electronically Signed By: Gilles Ty Signed Date: 06/03/2025 15:57 ET Workstation ID: [id number] Transcribed By: Self Edit Transcribed Date: 06/03/2025 15:53 ET us Joi JOHNSON IMG MRI PROCEDURES Final Resu lt * MG Mammo Digital Diagnostic w Abebe bilat (01/20/2025 1:09 PM EST) Anatomical Region Laterality Modality Breast Bilateral Mammography Kasandra Mehta MD IMG BI PROCEDURES Final Result * BD Bone Density DXA Axial Skeleton [...] (World Health Organization Fracture Risk Assessment) [facility] Department of Internal Medicine recommends using National [...] alternative screening schedule based on lucy Islas., [facility] December 14, 2011 for patients with osteopenia (based on hip BMD T-score) is as follows: * advanced osteopenia (T scores [...] Signed Date: 12/29/2024 10:36 ET Workstation ID: [id number] Transcribed By: Self Edit Transcribed Date: 12/29/2024 10:33 ET Narrative 12/29/2024 10:36 AM EST BONE DENSITY (DEXA) Lumbar Spine T-score is [...] (World Health Organization Fracture Risk Assessment) [facility] Department of Internal Medicine recommendsusing National Osteoporosis [...] alternative screening schedule based on lucy Islas., [facility] for patients with osteopenia (based on [...] Signed Date: 12/29/2024 10:36 ET Workstation ID: [id number] Transcribed By: Self Edit Transcribed Date: 12/29/2024 10:33 ET Kasandra Mehta MD IMG DXA PROCEDURES Final Result from Last 3 Months or Most Recently Relevant to Health Maintenance Insurance [facility] MEDICARE Member Subscriber Plan / Payer (Ef fective 2022-Present) Name:Emma Prater Relation to Subscriber:Self Name:Emma Prater Payer ID:[id number] Group ID:[id number] Type:Not on file Address: [place] [address] [address] [place] [id number] Care Teams Scraper Operator Relationship Specialty Start Date End Date Kasandra Mehta MD [address] [place] [id number] PCP - General 01/23/24
--- OUTSIDE RECORDS SUMMARY | 2025-07-17 09:21 | XMS_ITS | Patient Health Record ---
Author Organization [facility] Address [address] [place] [address] Care Team Providers Care Rough Rice Grader Name Role Phone Tomy HUNTER, Asma Primary Care Provider Octavio Green [phone] Reason For Referral No Information Plan Of Treatment No Information Insurance Providers Payer Name Payer Address Payer Phone Subscriber Number Group Number Insured Name Patient Relationship to Insured Coverage Start Date Coverage End Date [facility] [address] [address] [place], [place] [id number] CARLO CHRISTENSEN Self - patient is the insured Medical (General) History Medical History History ICD Code colonoscoy done elsewhere in 2008 diabetes mellitus coronary atery disease Surgical History Surgery Date(Month/Year) hemorrhoid and fissure surgery breast reduction appendectomy
--- OUTSIDE RECORDS SUMMARY | 2025-07-17 09:21 | XMS_ITS | Clinical Summary ---
Author Organization [email or web address] Address [address] [place] [address] [address] [place] [address] Care Team Providers Care Research Physician Name Role Phone Unavailable Primary Care Provider [...] Description 05/11/2025 10:00 AM EDT Office Visit [facility] [address] [place] [address] Radha Hackett Dental calculus (Primary Dx); Periodontal [...] Most Recently Relevant to Health Maintenance Insurance [facility] USP OPTIONS (O D-SNP) [place] [id number] [facility] [address] [place] [phone] [address] [place] [address]
[2025-07-17 09:23] VITALS: BP 114/56; PULSE 105; O2SAT 97; BMI 28.3
[2025-07-17 09:36] LABS: Glucose, Whole Blood 229 mg/dL (60-115)
== END 2025-07-17 10:10 | disposition home or self-care (01) ==
LOC: HO.ENCR 09:14
PROVIDERS: PCP Internal Medicine; Visit Provider Physician Assistant Medical
DX: E11.9 Type 2 diabetes mellitus without complications (principal); K76.0 Fatty (change of) liver, not elsewhere classified; E66.3 Overweight; E11.649 Type 2 diabetes mellitus with hypoglycemia without coma

== ENCOUNTER → 2025-07-17 09:13 | Outpatient (BNVA) | payer OTHER, SELFPAY | PROVIDERS: PCP Internal Medicine; Visit Provider Physician Assistant Medical | DX: E11.649 Type 2 diabetes mellitus with hypoglycemia without coma (principal); K76.0 Fatty (change of) liver, not elsewhere classified; E66.3 Overweight; I10 Essential (primary) hypertension | CPT/HCPCS: 82947; 83036; 99212 ==

== ENCOUNTER 2025-08-25 08:55 | Outpatient (AMB) | payer OTHER, SELFPAY ==
--- NOTE | 2025-08-25 09:02 | MHC.OFFVIS ---
Vital Signs 08/25/25 09:06 Height 5 ft 3 in Weight 161 lb 13.109 oz BMI 28.7 BP 120/60 Blood Pressure Location Lt brachial Position Sitting Pulse 92 Pulse Source Pulse Oximeter Pulse Oximetry (%) 97 Oxygen Delivery Method Room Air Intake Visit Reasons: Type II diabetes Intake Note: Patient present today to follow up on Type 2 Diabetes Mellitus. Patient receives Freestyle Lisa 3 Plus through: [facility] Last Diabetic Eye exam: few months ago Last Podiatry Visit: Does not see a [employer] [place] Random Glucose: mg/dl 224 HgA1C: 6.8% 07/17/2025 Patient has upcoming surgery on her right shoulder. Build Technician Required: Yes Build Technician Services: Build Technician Present Build Technician Name: Freddy Seay [id number] Liat 1236 Information Interpreted: clinical only (khmer) Accompanied by: Self / Same As Patient Allergies No Known Allergies Allergy (Verified 08/25/25 09:07) Medication List - Last Reconciled 08/25/25 by ELIZABETH Jackson albuterol sulfate 90 mcg/actuation 2 inhalations inhalation Q4-6H PRN albuterol sulfate 0.63 mg (3 mL) inhalation QID PRN blood sugar diagnostic (FreeStyle Precision [place] Strips) As directed once a day blood sugar diagnostic (FreeStyle Lite Strips) As directed three times a day if glucose sensor fails or to confirm readings blood-glucose meter (FreeStyle Lite Meter kit) As directed for use with freestyle test strips blood-glucose sensor (FreeStyle Lisa 3 Plus Sensor device) Apply new sensor every 15 days empagliflozin (Jardiance) 25 mg PO DAILY esomeprazole magnesium 20 mg PO DAILY glucose (Dex4 Glucose Quick Dissolve) 16 grams (4 x 4 gram) PO Q15M PRN hydroxyzine pamoate 25 mg PO DAILY PRN insulin glargine (Lantus Solostar U-100 Insulin) 20 units (0.2 mL) subcut QAM insulin lispro subcutaneously 3 times a day; 10 units before breakfast and 12 units before lunch and dinner 30 days lancets (FreeStyle Lancets) 4 times a day prn sensor failure or to confirm glucose melatonin 10 mg PO BEDTIME PRN melatonin mg PO metformin 1,000 mg PO BID mirtazapine 15 mg PO BEDTIME peg 3350-electrolytes 236-22.74-6.74 -5.86 gram (Golytely) 240 mL PO Q10M pen needle, diabetic (Easy Comfort Pen [place]) USE DIRECTED TWICE DAILY [shower chair Shower chair] tirzepatide (Mounjaro) 5 mg (0.5 mL) subcut QWEEK [Updraft machine As directed] HPI Comments Details: This is a 69-year-old female with a past medical history of hepatic steatosis, type 2 diabetes, [place], hypertension, CAD, hyperlipidemia and depression presenting for diabetic management. She is having shoulder surgery so shortly. She was diagnosed with type 2 diabetes 27 years ago There is a family history of diabetes in 2 of her brothers and her uncles and aunts. Denies family history of Type I DM. Her hemoglobin A1c is 6.8% 07/17/25. Current medications: Jardiance 25 mg daily, Mounjaro 2.5 mg weekly, metformin 1000 mg twice daily, Lantus 20 units in the morning, Humalog 10-12-12 before meals. Past medication: Ozempic switched to Mounjaro because she had weight gain on Ozempic. Reviewed CGM Active 96% Average glucose 182 G ID 7.7% Very high 10% High 38% Target range 52% Low 0% She has postprandial hyperglycemia and late night hyperglycemia. Micro and macrovascular complications: Neuropathy, CAD No blood sugars under 70. She had 1 blood sugar of 72 when she only had coffee at breakfast and did not eat until lunch. ROS: Constitutional: No unexplained weight loss, fever, chills, fatigue or night sweats. Eyes: No vision changes Respiratory: No shortness of breath Cardiovascular: No chest pain Gastrointestinal: No anorexia, nausea, vomiting or diarrhea. No abdominal pain or blood in stool. Neurologic: No numbness or tingling in the extremities. Endocrine: No cold or heat intolerance. No polyuria or polydipsia. Physical exam: Constitutional: Alert, in no distress. Head: Normocephalic. Neck: Supple, Full range of motion. No lymphadenopathy. No palpable thyroid masses. Respiratory: Clear to auscultation. Cardiovascular: S1 S2 regular. No murmurs. [facility] Medical History Overweight Controlled type 2 diabetes mellitus Fatty liver Fibroids PMB (postmenopausal bleeding) Osteopenia Dyslipidemia Diabetic polyneuropathy associated with type 2 diabetes mellitus Diabetes type 2, uncontrolled Diabetes 1.5, managed as type 1 Panic anxiety syndrome Hospital discharge follow-up Vitamin D deficiency Carpal tunnel syndrome Incontinence Hemorrhoids Tubal occlusion Insomnia Elevated cholesterol Depression Hypertension IDDM (insulin dependent diabetes mellitus) Surgical History Hx of cataract surgery History of neck surgery History of surgery History of colonoscopy History of hemorrhoidectomy History of carpal tunnel release History of bladder surgery S/P sinus surgery Hx of breast reduction, elective Hx of appendectomy H/O tubal ligation History of heart artery stent Family History Father No problems noted. Mother Heart disease Lung cancer Brother Liver cancer Brother Renal cancer HTN (hypertension) Diabetes mellitus Maternal Grandfather No problems noted. Maternal Grandmother No problems noted. Paternal Grandfather No problems noted. Paternal Grandmother No problems noted. Maternal Uncle Diabetes mellitus Paternal Uncle Diabetes mellitus Son No problems noted. Daughter No problems noted. Family/Other History of breast cancer Social History Housing: House Alcohol intake: current Alcohol intake frequency: holidays/special occasions only Patient Tobacco Use Status: Former Tobacco user e-Cigarette/Vaping Use: Never Used service: No Current occupational status: disabled Current occupation: right hand dominant Sexual orientation: Straight/Heterosexual Gender identity: Female Cognitive needs: No Hearing needs: No Vision needs: Yes Female Reproductive History Menstrual Age of Menarche: 14 Physical Exam Vital Signs: Last Vital Signs Pulse 92 08/25/25 09:06 BP 120/60 08/25/25 09:06 Pulse Ox 97 08/25/25 09:06 Oxygen Delivery Method Room Air 08/25/25 09:06 BMI result Body Mass Index 28.7 Office Procedures Glucose Monitoring Details Details: See HPI 61449 - Glucose monitoring, continuous-physician I&R Procedure code (CPT) selection complete Results Reviewed Results Reviewed: Laboratory Tests 08/08/22 08/19/24 08/19/24 16:10 08:02 08:12 Plt Count Creatinine Estimated GFR AST ALT B-Natriuretic Peptide Triglycerides 233 H Cholesterol 189 LDL Cholesterol, Calc 105 H HDL Cholesterol 38 L Vitamin B12 746 TSH Urine Creatinine 89.01 Urine Microalbumin 11.0 Microalb/Creat Ratio 12.3 08/22/24 11/17/24 10:36 15:45 Plt Count 179 Creatinine 0.80 Estimated GFR > 60 AST 42 H ALT 72 H B-Natriuretic Peptide < 10 Triglycerides Cholesterol LDL Cholesterol, Calc HDL Cholesterol Vitamin B12 TSH 1.24 Urine Creatinine Urine Microalbumin Microalb/Creat Ratio Assessment & Plan Assessment & Plan (1) Controlled type 2 diabetes mellitus: Code(s): E11.9 - Type 2 diabetes mellitus without complications Category: Medical (2) Fatty liver: Code(s): K76.0 - Fatty (change of) liver, not elsewhere classified Category: Medical (3) Overweight: Code(s): E66.3 - Overweight Category: Medical Plan In summary this is a 69-year-old female with controlled type 2 diabetes with complications. Increase Mounjaro to 5 mg weekly. Continue Jardiance 25 mg daily, metformin 1000 mg twice daily, Lantus 20 units in the morning Continue lispro 10 units before breakfast and 12 units before lunch and dinner Reviewed treatment of hypoglycemia. She will purchase glucose tablets [id number] because her insurance does not cover it. Avoid alcohol and processed foods. Follow a low-cholesterol diet. Refer to [facility] for colon cancer screening and hepatic steatosis. Declined referral to dietitian. She was seen by the dietitian in the past. Reminded to have labs done. Follow up in 4 weeks for type 2 diabetes to review medications. Orders: Orders AMB Glucose Monitoring Today E11.9 - Type 2 diabetes mellitus without complications Medications: New tirzepatide (Mounjaro) 5 mg (0.5 mL) subcut QWEEK 2 mL 1RF Discontinued tirzepatide (Mounjaro) Discontinued Reason: Doctor's Order 2.5 mg (0.5 mL) subcut QWEEK 2 mL 0RF Patient Instructions: Continue Jardiance 25 mg daily Continue metformin 1000 mg twice daily Continue Lantus 20 units in the morning Continue Humalog 10 units before breakfast and 12 units before lunch and dinner Start Mounjaro 5 mg once weekly one week after your last dose of 2.5 mg Contin?e con Jardiance 25 mg al d?a Contin?e con metformina 1000 mg dos veces al d?a Contin?e con Lantus 20 unidades por la ma?stephania Contin?e con Humalog 10 unidades antes del desayuno y 12 unidades antes del almuerzo y la engineering specialist Comience con Mounjaro 5 mg papi vez a la semana papi semana despu?s de carias ?ltima dosis de 2.5 mg Coding Level of Care Code Est Pt Level 4 (94570) Diagnoses Controlled type 2 diabetes mellitus E11.9 Fatty liver K76.0 Overweight E66.3 CPT Codes Details - CPT: 20668 - Glucose monitoring, continuous-physician I&R ([id number])
[2025-08-25 09:06] VITALS: BP 120/60; PULSE 92; O2SAT 97; BMI 28.7
[2025-08-25 09:24] LABS: Glucose, Whole Blood 224 mg/dL (60-115)
--- OUTSIDE RECORDS SUMMARY | 2025-08-25 09:30 | XMS_ITS | Encounter Summary ---
Author Organization [employer] Address [address] [place] [address] [address] [place] [address] Care Team Providers Care Drum Straightener Name Role Phone Unavailable Primary Care Provider Unavailabl e Encounter Details Date Type Department Care Team (Latest Contact Info) Description 03/23/2021 Abstract [facility]VERSION[facility] Dental, Provider, DDS Social History Tobacco Use Types Packs/Day Years Used Date Smoking Tobacco: Never Assessed Comments Unknown Sex and Gender Information Value Date Recorded Sex Assigned at Female 09/25/2022 10:20 AM EDT Legal Sex Female 10:20 AM EDT Gender Identity Female 09/25/2022 10:20 AM EDT Sexual Orientation Straight 09/25/2022 10 :20 AM EDT documented as of this encounter Plan of Treatment Not on file documented as of this encounter Visit Diagnoses Not on filedocumented in this encounter
--- OUTSIDE RECORDS SUMMARY | 2025-08-25 09:30 | XMS_ITS | Patient Health Record ---
Author Organization [facility] Address [address] [place] [address] Care Team Providers Care Bench Hand Name Role Phone Tomy HUNTER, Asma Primary Care Provider Octavio Green [phone] Reason For Referral No Information Plan Of Treatment No Information Insurance Providers Payer Name Payer Address Payer Phone Subscriber Number Group Number Insured Name Patient Relationship to Insured Coverage Start Date Coverage End Date [facility] [address] [address] [place], [place] [id number] CARLO CHRISTENSEN Self - patient is the insured Medical (General) History Medical History History ICD Code colonoscoy done elsewhere in 2008 diabetes mellitus coronary atery disease Surgical History Surgery Date(Month/Year) hemorrhoid and fissure surgery breast reduction appendectomy
--- OUTSIDE RECORDS SUMMARY | 2025-08-25 09:30 | XMS_ITS | Encounter Summary ---
Author Organization [employer] Address [address] [place] [address] Care Team Providers Care Automotive Parts Clerk Name Role Phone Unavailable Primary Care Provider Unavailabl e Encounter Details Date Type Department Care Team (Late st Contact Info) Description 05/25/2023 Telephone [facility] [address] [place] [address] Rosario Santoyo LPN Social History Tobacco Use [...]
--- OUTSIDE RECORDS SUMMARY | 2025-08-25 09:30 | XMS_ITS | Clinical Summary ---
Author Organization [employer] Address [address] [place] [address] [address] [place] [address] Care Team Providers Care Signal Fitter Name Role Phone Unavailable Primary Care Provider [...] Vaccines (1 - Tdap) 06/26/2017 06/25/2017, 02/13/2014 Dental X-Ray: Bitewings 05/07/2025 05/06/20 24, 08/07/2022, 03/01/2021 Dental Oral Exam 05/08/2025 11/06/2024, 09/2024, 08/07/2022, Additional history exists COVID-19 Vaccine ( season) 2025 11/10/2021, 03/08/2021, 02/08/2021 Influenza Vaccine (#1) 2025 Dental Prophylaxis 11/11/2025 05/11/2025, 1 01/07/2024, 05/06/2024, Additional history exists Tobacco Screening 05/11/2026 05/11/2025 Mammogram 01/20/2027 01/20/2025 Dental X-Ray: Full Mouth 05/07/2027 05/06/2024, 04/0 [...] Associated Diagnosis Comments PROPHYLAXIS - ADULT Routine 05/11/2025 1 0:00 [...] Relevant to Health Maintenance Insurance [facility] DETENTION OPT[facility] (O D-SNP) DENTAL - [facility]
--- OUTSIDE RECORDS SUMMARY | 2025-08-25 09:30 | XMS_ITS | Clinical Summary ---
Author Organization 175 [facility] Address [address] [place] [address] Phone Care Team Providers Care Hassock Maker Name Role Phone Kasandra Mehta MD Primary [...] (one) time each day. 30 capsule 2 5 025 Active Mounjaro 2.5 mg/0.5 mL injection INJECT ONE PEN (=2.5MG) SUBCUTANEOUSLY ONCE A WEEK DIRECTED Active Active Problems Problem Noted Date Diagnosed Date Gastroesophageal reflux disease 05/28/2025 Assessment & Plan (05/28/2025 11:16 AM EDT): Well controlled on esomeprazole. Will continue to medication. Calcific tendonitis of right shoulder 01/09/2025 Surgery follow-up 01/09/2025 Diabetes mellitus due to und erlying condition with hyperosmolarity without coma, without long-term current use of insulin ([facility] V24, [facility] V28) 07/25/2024 Assessment & Plan (05/28/2025 8:46 AM EDT): Fair control of diabetes. Patient will continue with yearly Podiatric and Ophthomologic evaluations.Will consider Angiotensin Converting Enzyme Inhibitor for renal protection. Continue Ozempic, lispro, glargine, Jardiance, and metformin. Encouraged to keep the appointments with the specialist. Patient had some blood tests with her briquette operator. A1c: 7.4 Assessment & Plan (11/27/2024 11:44 AM EST): poor control of diabetes. Patient will continue with yearly Podiatric and Ophthomologic evaluations.Will consider Angiotensin Converting Enzyme Inhibitor for renal protection. Continue Ozempic, lispro, glargine, Jardiance, and metformin. Encouraged to keep the appointments with the specialist. Patient had some blood tests with her briquette operator. A1c: 7.4 De Quervain's tenosynovitis 07/25/2024 Postoperative wound infection 07/17/2023 Cervical cord compression wi th myelopathy ([facility] V24, [facility] V28) 01/08/2023 Overview (09/14/2024): Last Assessment & Plan: Ms. Christensen returns for her 1 year follow-up after [...] is no instability at any level. Ms. Christensen did have improvement in her myelopathic symptoms [...] Encounters Date Type Department Care Team Description 08/17/2025 Telephone Orthopedic Surgery [facility] 250 175 [facility] [address] [place] [address] Jessica June MA 08/13/2025 Telephone Orthopedic Surgery [facility] 250 175 [facility] [address] [place] [phone] Jessica June MA 08/12/2025 3:30 PM EDT Treatment [facility] Outpatient Rehabilitation [facility] 175 [facility] [address] [place] [address] Sun Elias, PT Calcific tendonitis of right shoulder (Primary Dx) 08/11/2025 Telephone Orthopedic Surgery [facility] 160 175 [facility] [address] [place] [phone] Joi Hillman PA 08/03/2025 Telephone Adult Medicine [facility] [address] [place] [address] Kasandra Wood MD 07/24/2025 11:00 AM EDT Office Visit Orthopedic Surgery [facility] 160 175 [facility] [address] [place] [phone] Claudio Tafoya MD Calcific tendonitis of right shoulder (Primary Dx) 07/24/2025 Telephone Adult Medicine [address] [phone] Kasandra Wood MD 07/23/2025 8:00 AM EDT Treatment [address] [phone] Sun Elias, PT Calcific tendonitis of right shoulder (Primary Dx); Chronic right shoulder pain 07/17/2025 Telephone Gastroenterology [facility] 175 [facility] [address] [phone] Isael Saleh MD 07/01/2025 10:00 AM EDT Treatment [facility] [address] [phone] Sun Elias, PT Calcific tendonitis of right shoulder (Primary Dx); Chronic right shoulder pain 07/01/2025 8:00 AM EDT Office Visit Orthopedic Surgery [facility] [address] [phone] Joi Hillman PA Calcific tendonitis of right shoulder (Primary Dx); Chronic right shoulder pain; Biceps tendinitis of right upper extremity 06/29/2025 8:00 AM EDT Treatment [address] [phone] Kurt Alford, HUNTER Calcific tendonitis of right shoulder (Primary Dx); Chronic right shoulder pain 06/24/2025 8:00 AM EDT Treatment [address] [phone] Kurt Alford PTA Calcific tendonitis of right shoulder (Primary Dx) 06/22/2025 8:00 AM EDT Treatment [address] [phone] Kurt Alford, BOTTOM BLEACHER Calcific tendonitis of right shoulder (Primary Dx); Chronic right shoulder pain 06/18/2025 [facility] Medicine [address] [phone] Kasandra Wood MD 06/17/2025 8:00 AM EDT Treatment [address] [phone] Kurt Alford, BOTTOM BLEACHER Calcific tendonitis of right shoulder (Primary Dx); Chronic right shoulder pain 06/15/2025 8:00 AM EDT Treatment [address] [phone] Kurt Alford, BOTTOM BLEACHER Calcific tendonitis of right shoulder (Primary Dx); Chronic right shoulder pain 06/10/2025 8:00 AM EDT Treatment [address] [phone] Kurt Alford, BOTTOM BLEACHER Calcific tendonitis of right shoulder (Primary Dx) 06/09/2025 8:31 AM EDT - 06/09/2025 11:59 PM EDT Hospital Encounter Radiology Department - [address] [phone] Neck pain Discharge Disposition: Home or Self Care 06/08/2025 8:00 AM EDT Treatment [address] [phone] Kurt Alford, BOTTOM BLEACHER Calcific tendonitis of right shoulder (Primary Dx) 06/03/2025 2:28 PM EDT - 06/03/2025 11:59 PM EDT Hospital Encounter [facility] MRI [address] [place] [address] Calcific tendonitis of right shoulder; Chronic right shoulder pain Discharge Disposition: Home or Self Care 06/03/2025 8:00 AM EDT Treatment [address] [phone] Kurt Alford PTA Calcific tendonitis of right shoulder (Primary Dx) 06/01/2025 8:30 AM EDT Treatment [address] [phone] Kurt Alford PTA Calcific tendonitis of right shoulder (Primary Dx) 05/28/2025 8:30 AM EDT Office Visit Adult Medicine [address] [phone] Susan latham, Kasandra Leal MD Type 2 diabetes mellitus without complication, without long-term current use of insulin ([facility] V24, [facility] V28) (Primary Dx); Gastroesophageal reflux disease, unspecified whether esophagitis present; Neck pain; Encounter for screening involving social determinants of health (SDoH) from Last 3 Months Immunizations Immunization Administration Dates Next Due Td Tetanus diptheria, [...] History Date Comments Asthma DX:Asthma Diabetes mellitus ([facility] V24, [facility] V28) DX:Diabetes mellitus (HCC) Depression DX:Depression Anxiety [...] for your loved ones. For example, child and family counselor or elderly care for an older adult? [...] Date Recorded What is your living situation? Unrecognized valu e 05/28/2025 Comments No Sex and Gender Information [...] Care Team (Late st Contact Info) Description 10/01/2025 10:00 AM EST Consult Adult Medicine [address] [phone] Kasandra Mehta MD [address] [place] [address] 10/20/2025 9:30 AM EST Hospital Encounter [facility] Main OR [address] [place] [phone] Claudio Tafoya MD [address] [place] [phone] 10/20/2025 9:30 AM EST - 10/20/2025 12:00 PM EST Surgery [facility] Main OR [address] [place] [phone] Claudio Tafoya MD [address] [place] [phone] RIGHT SHOULDER ARTHROSCOPY, REPAIR ROTATOR CUFF [81077 (CPT )] 11/04/2025 11:00 AM EST Office Visit Orthopedic Surgery [facility] 160 175 [facility] 160 [place] [phone] Joi Hillman PA [address] [address] 11/30/2025 8:00 AM EST Office Visit Adult Medicine [facility] [address] [place] [address] Kasandra Mehta MD [address] [place] [phone] 12/07/2025 8:50 AM EST Consult Gastroenterology [facility] 175 [facility] 175 [facility] 200 [place] [phone] Eladia Ding PA 175 [facility] 200 [place] [address] Scheduled Procedures Name Priority Associated Diagnoses Date/Ti me ARTHROSCOPY SHOULDER REPAIR ROTATOR CUFF Calcific tendonitis of right shoulder 10/20/2025 9:30 AM EST Health Maintenance Due Date Last Done Comments Colorectal Cancer Screening: Colonoscopy 1955 RSV Immunization Adult Patients (1 - Risk 60-74 years 1-dose series) 2017 Cholesterol Screening (Lipid Panel) 11/05/2022 Hepatitis C Screening 11/05/2022 Medicare Annual Wellness Visit 11/05/2022 Diabetes: Annual Urine Albumin-Creatinine Ratio (uACR) 09/04/2024 Depression Screening 11/26/2024 Diabetes: Blood Sugar Contro l Test (HGBA1C) 01/23/2025 07/25/2024 Diabetes: Annual Retina Eye Exam 02/12/2025 02/13/2024 Diabetes: Annual GFR (Glomerular Filtration Rate) 07/25/2025 07/25/2024 COVID-19 Vaccine ( - 2024-2 6 season) 2025 11/10/2021, 03/08/2021, 02/08/2021 Diabetes: Annual Foot Exam 08/15/2025 08/15/2024 Falls [...] Author PT STG x 8 visits from [facility] 02/26/2025 General Yes Milton Cuellar, PT Note: [] Pt will increase appleys scratch test IR to mid L spine, [] Pt will increase right shoulder abd active ROM to 115 degrees, [] Pt will increase right shoulder flexion active ROM to 140 degrees, [] Pt will decrease waking frequency to 1 a night due to pain PT LTG x 14 visits from [facility] 02/26/2025 Milton Sims, PT Note: [] Pt will be able [...] the palpable area of concern. POS - [id number] -------- FINAL REPORT -------- Dictated By: Jacinta Burgos Dictated Date: 06/09/2025 13:52 ET Assigned Physician: Jacinta Burgos Reviewed and Electronically Signed By: Jacinta Burgos Signed Date: 06/09/2025 13:56 ET Workstation ID: [id number] Transcribed By: Self Edit Transcribed Date: 06/09/2025 [...] gland, the palpable areaof concern. POS - [id number] -------- FINAL REPORT -------- Dictated By: Jacinta Burgos Dictated Date: 06/09/2025 13:52 ET Assigned Physician: Jacinta Burgos Reviewed and Electronically Signed By: Jacinta Burgos Signed Date: 06/09/2025 13:56 ET Workstation ID: [id number] Transcribed By: Self Edit Transcribed Date: 06/09/2025 [...] Signed Date: 06/03/2025 15:57 ET Workstation ID: [id number] Transcribed By: Self Edit Transcribed Date: 06/03/2025 [...] Signed Date: 06/03/2025 15:57 ET Workstation ID: [id number] Transcribed By: Self Edit Transcribed Date: 06/03/2025 15:53 ET Joi JOHNSON IMG MRI PROCEDURES Final Resu [...] (World Health Organization Fracture Risk Assessment) [facility] Department of Internal Medicine recommends using [...] alternative screening schedule based on lucy Islas., [facility] December 14, 2011 for patients [...] Signed Date: 12/29/2024 10:36 ET Workstation ID: [id number] Transcribed By: Self Edit Transcribed Date: 12/29/2024 [...] (World Health Organization Fracture Risk Assessment) [facility] Department of Internal Medicine recommendsusing National [...] Signed Date: 12/29/2024 10:36 ET Workstation ID: [id number] Transcribed By: Self Edit Transcribed Date: 12/29/2024 10:33 ET Kasandra Mehta MD IMG DXA PROCEDURES Final Result from Last 3 Months or Most Recently Relevant to Health Maintenance Insurance [facility] MEDICARE Member Subscriber Plan / Payer (Ef fective 2022-Present) Name:EMMA CHRISTENSEN Relation to Subscriber:Self Name:Emma Christensen Payer ID:[id number] Group ID:[id number] Type:Not on file Address: [place] [address] [address] [id number] Care Teams Hassock Maker Relationship Specialty Start Date End Date Kasandra Mehta MD [address] [place] [phone] PCP - General 01/23/24
--- OUTSIDE RECORDS SUMMARY | 2025-08-25 09:30 | XMS_ITS | Encounter Summary ---
Author Organization [employer] Address [address] [place] [address] [address] [place] [address] Care Team Providers Care Door Framer Name Role Phone Unavailable Primary Care Provider Unavailabl e Encounter Details Date Type Department Care Team (Latest Contact Info) Description 08/07/2022 Abstract [facility] CONVERSIONS Dental, Provider, DDS Social History [...]
== END 2025-08-25 09:39 | disposition home or self-care (01) ==
LOC: HO.ENCR 08:56
PROVIDERS: PCP Internal Medicine; Visit Provider Physician Assistant Medical
DX: E11.9 Type 2 diabetes mellitus without complications (principal); K76.0 Fatty (change of) liver, not elsewhere classified; E66.3 Overweight

== ENCOUNTER → 2025-08-25 08:55 | Outpatient (BNVA) | payer OTHER, SELFPAY | PROVIDERS: PCP Internal Medicine; Visit Provider Physician Assistant Medical | DX: E11.9 Type 2 diabetes mellitus without complications (principal); K76.0 Fatty (change of) liver, not elsewhere classified; E66.3 Overweight | CPT/HCPCS: 82947; 99212 ==

== ENCOUNTER 2025-09-22 08:44 | Outpatient (AMB) | payer OTHER, SELFPAY ==
--- NOTE | 2025-09-22 08:45 | A.OFFVIS_ITS ---
Vital Signs 09/22/25 08:46 Height 5 ft 3 in Weight 161 lb 13.109 oz BMI 28.7 BP 126/50 L Blood Pressure Location Rt brachial Position Sitting Pulse 108 H Pulse Source Pulse Oximeter Pulse Oximetry (%) 97 Oxygen Delivery Method Room Air Intake Visit Reasons: Type II diabetes Intake Note: Patient present today to follow up on Type 2 Diabetes Mellitus. Patient receives Freestyle Lisa 3 Plus through: [facility] Pharmacy Last Diabetic Eye exam: Last exam was sometime this year, not sure of month. Last Podiatry Visit: Patient has upcoming appt next month. Random Glucose: 153 mg/dl HgA1C: 6.8% 07/17/2025 Rehabilitation Construction Specialist Required: Yes Rehabilitation Construction Specialist Language: Pick Pack Worker Services: Rehabilitation Construction Specialist Present Information Interpreted: non-clinical & clinical Accompanied by: Self / Same As Patient Allergies No Known Allergies Allergy (Verified 09/22/25 08:51) HPI Comments Details: This is a 69-year-old female with a past medical history of hepatic steatosis, type 2 diabetes, TRISTON, hypertension, CAD, hyperlipidemia and depression presenting for diabetic management. Armenian video trommel tender used for the appointment. She is having shoulder surgery on October 12. She was diagnosed with type 2 diabetes 27 years ago. There is a family history of diabetes in 2 of her brothers and her uncles and aunts. Denies family history of Type I DM. Her hemoglobin A1c is 6.8% 07/17/25. Current medications: Jardiance 25 mg daily, Mounjaro 5 mg weekly, metformin 1000 mg twice daily, Lantus 20 units in the morning, Humalog 10-12-12 before meals. Past medication: Ozempic switched to Mounjaro because she had weight gain on Ozempic. 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 Micro and macrovascular complications: Neuropathy, CAD Denies interval episodes of hypoglycemia. ROS: Constitutional: No unexplained weight loss, fever, chills, fatigue or night sweats. Eyes: No vision changes Respiratory: No shortness of breath Cardiovascular: No chest pain Gastrointestinal: No anorexia, nausea, vomiting or diarrhea. No abdominal pain or blood in stool. Neurologic: No numbness or tingling in the extremities. Endocrine: No cold or heat intolerance. No polyuria or polydipsia. Physical exam: Constitutional: Alert, in no distress. Head: Normocephalic. Neck: Supple, Full range of motion. No lymphadenopathy. No palpable thyroid masses. Respiratory: Clear to auscultation. Cardiovascular: S1 S2 regular. No murmurs. [facility] Medical History Overweight Controlled type 2 diabetes mellitus Fatty liver Fibroids PMB (postmenopausal bleeding) Osteopenia Dyslipidemia Diabetic polyneuropathy associated with type 2 diabetes mellitus Diabetes type 2, uncontrolled Diabetes 1.5, managed as type 1 Panic anxiety syndrome Hospital discharge follow-up Vitamin D deficiency Carpal tunnel syndrome Incontinence Hemorrhoids Tubal occlusion Insomnia Elevated cholesterol Depression Hypertension IDDM (insulin dependent diabetes mellitus) Surgical History Hx of cataract surgery History of neck surgery History of surgery History of colonoscopy History of hemorrhoidectomy History of carpal tunnel release History of bladder surgery S/P sinus surgery Hx of breast reduction, elective Hx of appendectomy H/O tubal ligation History of heart artery stent Family History Father No problems noted. Mother Heart disease Lung cancer Brother Liver cancer Brother Renal cancer HTN (hypertension) Diabetes mellitus Maternal Grandfather No problems noted. Maternal Grandmother No problems noted. Paternal Grandfather No problems noted. Paternal Grandmother No problems noted. Maternal Uncle Diabetes mellitus Paternal Uncle Diabetes mellitus Son No problems noted. Daughter No problems noted. Family/Other History of breast cancer Social History Housing: House Alcohol intake: current Alcohol intake frequency: holidays/special occasions on ly Patient Tobacco Use Status: Former Tobacco user e-Cigarette/Vaping Use: Never Used service: No Current occupational status: disabled Current occupation: right hand dominant Sexual orientation: Straight/Heterosexual Gender identity: Female Cognitive needs: No Hearing needs: No Vision needs: Yes Female Reproductive History Menstrual Age of Menarche: 14 Physical Exam Vital Signs: Last Vital Signs Pulse 108 H 09/22/25 08:46 BP 126/50 L 09/22/25 08:46 Pulse Ox 97 09/22/25 08:46 Oxygen Delivery Method Room Air 09/22/25 08:46 BMI result Body Mass Index 28.7 Office Procedures Glucose Monitoring Details Details: See [facility] [address] - Glucose monitoring, continuous-physician I&R Procedure code (CPT) selection complete Results Reviewed Results Reviewed: Laboratory Last Values Glucose (Clinic) 153 mg/dL (60-115) H 09/22/25 08:54 Laboratory Tests 08/08/22 08/19/24 08/19/24 16:10 08:02 08:12 Plt Count Creatinine Estimated GFR AST ALT B-Natriuretic Peptide Triglycerides 233 H Cholesterol 189 LDL Cholesterol, Calc 105 H HDL Cholesterol 38 L Vitamin B12 746 TSH Urine Creatinine 89.01 Urine Microalbumin 11.0 Microalb/Creat Ratio 12.3 08/22/24 11/17/24 10:36 15:45 Plt Count 179 Creatinine 0.80 Estimated GFR > 60 AST 42 H ALT 72 H B-Natriuretic Peptide < 10 Triglycerides Cholesterol LDL Cholesterol, Calc HDL Cholesterol Vitamin B12 TSH 1.24 Urine Creatinine Urine Microalbumin Microalb/Creat Ratio Assessment & Plan Assessment & Plan (1) Controlled type 2 diabetes mellitus: Code(s): E11.9 - Type 2 diabetes mellitus without complications Category: Medical Qualifiers: Diabetes mellitus care home insulin use: with intermission coordinator use Diabetes mellitus complication status: with unspecified complications Qualified Code(s): E11.8 - Type 2 diabetes mellitus with unspecified complications; Z79.4 - long term (current) use of insulin (2) Fatty liver: Code(s): K76.0 - Fatty (change of) liver, not elsewhere classified Category: Medical (3) Overweight: Code(s): E66.3 - Overweight Category: Medical Plan In summary this is a 69-year-old female with type 2 diabetes with complications. Continue Jardiance 25 mg daily, Mounjaro 5 mg weekly for the next 3 weeks), metformin 1000 mg twice daily, Lantus 20 units in the morning, Humalog 10-12-12 before meals. After you complete the current prescription of Mounjaro start Mounjaro 7.5 mg weekly. Start the new dose 1 week after the last dose. When you start Mounjaro 7.5 weekly decrease lantus 16 units daily and decrease humalog to 8 units before breakfast, 10 units before lunch and dinner. Increasing the patient's GLP 1 and decreasing insulin should help with her goal of weight loss. Reviewed treatment of hypoglycemia. Avoid alcohol and processed foods. Follow a low-cholesterol diet. She has been referred to [facility] for colon cancer screening and hepatic steatosis. Declined referral to dietitian. She was seen by the dietitian in the past. Reminded to have labs done. Follow up in 7 weeks for type 2 diabetes. Orders: Orders AMB Glucose Monitoring Today E11.9 - Type 2 diabetes mellitus without complications Medications: New tirzepatide (Mounjaro) 7.5 mg (0.5 mL) subcut QWEEK 2 mL 0RF Patient Instructions: Continue Jardiance 25 mg daily, Mounjaro 5 mg weekly, metformin 1000 mg twice daily, Lantus 20 units in the morning, Humalog 10-12-12 before meals. After you complete the current prescription of Mounjaro (for the next 3 weeks) start Mounjaro 7.5 mg weekly. Start the new dose 1 week after the last dose. When you start Mounjaro 7.5 weekly decrease lantus 16 units daily decfrease humalog to 8 units before breakfast, 10 units before lunch and dinner Contin?e con Jardiance 25 mg al d?a, Mounjaro 5 mg a la semana, metformina 1000 mg dos veces al d?a, Lantus 20 unidades por la ma?stephania, Humalog 10-12-12 antes de las comidas. Despu?s de completar la prescripci?n actual de Mounjaro (fani las pr?ximas 3 semanas), comience con Mounjaro 7.5 mg a la semana. Comience la nueva dosis 1 semana despu?s de la ?ltima dosis. Al comenzar con Mounjaro 7.5 mg a la semana, reduzca la dosis de Lantus 16 unidades al d?a. Reduzca la dosis de Humalog a 8 unidades antes del desayuno y 10 unidades antes del almuerzo y la saul. Coding Level of Care Code Est Pt Level 4 (94634) Diagnoses Controlled type 2 diabetes mellitus with complication, with long-term current use of insulin E11.8; Z79.4 Diabetes mellitus intermission coordinator insulin use: with care home use Diabetes mellitus complication status: with unspecified complications Fatty liver K76.0 Overweight E66.3 CPT Codes Details - CPT: 67023 - Glucose monitoring, continuous-physician I&R ([id number])
[2025-09-22 08:46] VITALS: BP 126/50; PULSE 108; O2SAT 97; BMI 28.7
[2025-09-22 08:59] LABS: Glucose, Whole Blood 153 mg/dL (60-115)
--- OUTSIDE RECORDS SUMMARY | 2025-09-22 09:29 | XMS_ITS | Encounter Summary ---
Author Organization [employer] Address [address] [place] [address] [address] [place] [address] Care Team Providers Care Qa Manager Name Role Phone Unavailable Primary Care Provider Unavailabl e Encounter Details Date Type Department Care Team (Latest Contact Info) Description 03/23/2021 Abstract [facility] CONVERSIONS Dental, Provider, DDS Social History Tobacco [...]
--- OUTSIDE RECORDS SUMMARY | 2025-09-22 09:29 | XMS_ITS | Encounter Summary ---
Author Organization [facility] Address [address] [place] [address] Care Team Providers Care Aerotriangulation Specialist Name Role Phone Kasandra Mehta MD Primary Care Prov ider Reason for Visit * Reason Onset Date Comments faxed order 09/11/2025 [facility] - received order# [id number] Encounter Details Date Type Department Care Team (Late st Contact Info) Description 09/11/2025 Telephone Adult Medicine [address] [phone] Kasandra Mehta MD [address] [place] [address] Social History Tobacco Use Types Packs/Day Years [...] for your loved ones. For example, child care lead teacher or elderly care for an older [...] as of this encounter Progress Notes * Eugenia Walton MA - 09/18/2025 12:45 PM EDT Orders sign, faxed and scan * Eugenia Walton MA - 09/14/2025 10:[address] on provider desk for signature * Bela Talamantes - 09/11/2025 10:57 AM EDT [facility] - received order# [id number] Please sign and fax back to [phone] documented in this encounter Plan of Treatment Upcoming Encounters Date Type Department Care Team (Late st Contact Info) Description 10/01/2025 10:00 AM EST Consult Adult Medicine [facility] [address] [place] [address] Kasandra Mehta MD [address] [place] [address] 10/20/2025 9:30 AM EST Hospital Encounter [facility] Main OR [address] [place] [phone] Claudio Tafoya MD [address] [place] [phone] 10/20/2025 9:30 AM EST - 10/20/2025 12:00 PM EST Surgery [facility] [address] [place] [phone] Claudio Tafoya MD [address] [place] [phone] RIGHT SHOULDER ARTHROSCOPY, REPAIR ROTATOR CUFF [[id number] (CPT )] 11/04/2025 11:00 AM EST Office Visit Orthopedic Surgery - [place] 160 175 [facility] 160 [place] [phone] Joi Hillman PA [address] [place] [phone] 11/30/2025 8:00 AM EST Office Visit Adult Medicine [facility] [address] [place] [address] Kasandra Mehta MD [address] [place] [address] 12/07/2025 8:50 AM EST Consult Gastroenterology - [address] [place] [phone] Eladia Ding PA [address] [place] [phone] Scheduled Procedures Name Priority Associated Diagnoses Date/Ti me ARTHROSCOPY SHOULDER REPAIR ROTATOR CUFF [facility] tendonitis of right shoulder 10/20/2025 9:30 AM EST documented as of this encounter Goals Goal Patient Goal Type Associated Problems Recent Progress Patient-Stated? Author PT STG x 8 visits from [facility] [place] 02/26/2025 General Yes Milton Cuellar PT Note: [] Pt will increase appleys scratch test IR to mid L spine, [] Pt will increase right shoulder abd active ROM to 115 degrees, [] Pt will increase right shoulder flexion active ROM to 140 degrees, [] Pt will decrease waking frequency to 1 a night due to pain PT LTG x 14 visits from [facility] 02/26/2025 General No Milton Cuellar PT Note: [...] on filedocumented in this encounter Care Teams Aerotriangulation Specialist Relationship Specialty Start Date End Date Kasandra Mehta MD [address] [place] [address] PCP - General 01/23/24 documented as of this encounter
--- OUTSIDE RECORDS SUMMARY | 2025-09-22 09:29 | XMS_ITS | Clinical Summary ---
Author Organization [employer] Address [address] [place] [address] 7[address] [place] [address] Care Team Providers Care Lpn Medical Assistant Name Role Phone Unavailable Primary Care Provider [...] [facility] MCC OPTIONS (O D-SNP) DENTAL - [facility]
--- OUTSIDE RECORDS SUMMARY | 2025-09-22 09:29 | XMS_ITS | Patient Health Record ---
Author Organization [facility] Address [address] [place] [address] Care Team Providers Care Director Of Assisted Living Name Role Phone Tomy HUNTER, Asma Primary Care Provider Octavio Green [phone] Reason For Referral No Information Plan Of Treatment No Information Insurance Providers Payer Name Payer Address Payer Phone Subscriber Number Group Number Insured Name Patient Relationship to Insured Coverage Start Date Coverage End Date [facility] [address] [address] [place], [place] [id number] CARLO CHRISTENSEN Self - patient is the insured Medical (General) History Medical History History ICD Code colonoscoy done elsewhere in 2008 diabetes mellitus coronary atery disease Surgical History Surgery Date(Month/Year) hemorrhoid and fissure surgery breast reduction appendectomy
--- OUTSIDE RECORDS SUMMARY | 2025-09-22 09:29 | XMS_ITS | Encounter Summary ---
Author Organization [employer] Address [address] [place] [address] 7[address] [place] [address] Care Team Providers Care Dredge Boat Engineer Name Role Phone Unavailable Primary Care Provider Unavailabl e Encounter Details Date Type Department Care Team (Latest Contact Info) Description 08/07/2022 Abstract [facility] CONVERSIONS Dental, Provider, DDS Social History [...]
--- OUTSIDE RECORDS SUMMARY | 2025-09-22 09:29 | XMS_ITS | Clinical Summary ---
Author Organization [address] [facility] Address [address] [place] [address] Phone Care Team Providers Care Professor Of Biostatistics Name Role Phone Kasandra Mehta MD Primary [...] coma, without long-term current use of insulin ([facility] V24, [facility] V28) 07/25/2024 Assessment & Plan (05/28/2025 8:46 AM EDT): Fair control of diabetes. Patient will continue with yearly Podiatric and Ophthomologic evaluations.Will consider Angiotensin Converting Enzyme Inhibitor for renal protection. Continue Ozempic, lispro, glargine, Jardiance, and metformin. Encouraged to keep the appointments with the specialist. Patient had some blood tests with her plant technical specialist. A1c: 7.4 Assessment & Plan (11/27/2024 11:44 AM EST): poor control of diabetes. Patient will continue with yearly Podiatric and Ophthomologic evaluations.Will consider Angiotensin Converting Enzyme Inhibitor for renal protection. Continue Ozempic, lispro, glargine, Jardiance, and metformin. Encouraged to keep the appointments with the specialist. Patient had some blood tests with her plant technical specialist. A1c: 7.4 De Quervain's tenosynovitis 07/25/2024 Postoperative wound infection 07/17/2023 Cervical cord compression wi th myelopathy ([facility] V24, [facility] V28) 01/08/2023 Overview (09/14/2024): Last Assessment & [...] Encounters Date Type Department Care Team Description 09/11/2025 Telephone Adult Medicine [address] [phone] Kasandra Xie MD 08/17/2025 Telephone Orthopedic Surgery [facility] [address] [phone] Jessica June MA 08/13/2025 Telephone Orthopedic Surgery [facility] [address] [phone] Jessica June MA 08/12/2025 3:30 PM EDT Treatment [facility] [address] [phone] [place], Sun, PT [facility]ific tendonitis of right shoulder (Primary Dx) 08/11/2025 Telephone Orthopedic Surgery [facility] 160 175 [facility] 160 [place] [address] Joi Hillman PA 08/03/2025 Telephone Adult Medicine [address] [phone] Kasandra Xie MD 07/24/2025 11:00 AM EDT Office Visit Orthopedic Surgery [facility] [address] [phone] Claudio Tafoya MD [facility] tendonitis of right shoulder (Primary Dx) 07/24/2025 Telephone Adult Medicine [address] [phone] Kasandra Xie MD 07/23/2025 8:00 AM EDT Treatment [facility] [address] [phone] Sun Elias, PT [facility]ific tendonitis of right shoulder (Primary Dx); Chronic right shoulder pain 07/17/2025 Telephone Gastroenterology [facility] 175 [facility] [address] [phone] Isael Saleh MD 07/01/2025 10:00 AM EDT Treatment [facility] [address] [phone] Nhan Eliasca, PT [facility] tendonitis of right shoulder (Primary Dx); Chronic right shoulder pain 07/01/2025 8:00 AM EDT Office Visit Orthopedic Surgery [facility] [address] [phone] Joi Hillman PA Calcific tendonitis of right shoulder (Primary Dx); Chronic right shoulder pain; Biceps tendinitis of right upper extremity 06/29/2025 8:00 AM EDT Treatment [facility] [address] [phone] Kurt Alford, BILINGUAL SALES ASSISTANT [facility] tendonitis of right shoulder (Primary Dx); Chronic right shoulder pain 06/24/2025 8:00 AM EDT Treatment [address] [phone] Kurt Alford, BILINGUAL SALES ASSISTANT [facility] tendonitis of right shoulder (Primary Dx) 06/22/2025 8:00 AM EDT Treatment [address] [phone] Kurt Alford, BILINGUAL SALES ASSISTANT [facility]ific tendonitis of right shoulder (Primary Dx); Chronic right shoulder pain from Last 3 Months Immunizations Immunization Administration [...] finger release OTHER SURGICAL HISTORY 01/16/2023 PROCEDURE: AL ARTHRD ANT INTERDY CERVCL BELW C2 EA [...] 10/01/2025 10:00 AM EST Consult Adult Medicine [address] [phone] Kasandra Mehta MD [address] [place] [address] 10/20/2025 9:30 AM EST Hospital Encounter [address] [phone] Claudio Tafoya MD [address] [place] [phone] 10/20/2025 9:30 AM EST - 10/20/2025 12:00 PM EST Surgery [address] [phone] Claudio Tafoya MD [address] [place] [phone] RIGHT SHOULDER ARTHROSCOPY, REPAIR ROTATOR CUFF [[id number] (CPT )] 11/04/2025 11:00 AM EST Office Visit Orthopedic Surgery - [place] 160 175 [facility] 160 [place] [phone] Joi Hillman PA [address] [place] [phone] 11/30/2025 8:00 AM EST Office Visit Adult Medicine [facility] [address] [place], [place] [phone] Kasandra Mehta MD [address] [place] [phone] 12/07/2025 8:50 AM EST Consult Gastroenterology - 299 [facility] 299 [facility] [address] [place] [phone] Eladia Ding PA [address] [place] [phone] Scheduled Procedures Name Priority Associated Diagnoses Date/Ti me ARTHROSCOPY SHOULDER REPAIR ROTATOR CUFF Calcific tendonitis of right shoulder 10/20/2025 9:30 AM EST Health Maintenance Due Date Last Done Comments Colorectal Cancer Screening: Colonoscopy 1955 RSV Immunization Adult Patients (1 - Risk 50-74 years 1-dose series) 2007 Cholesterol Screening (Lipid Panel) 11/05/2022 Hepatitis C Screening 11/05/2022 Medicare Annual Wellness Visit 11/05/2022 Diabetes: Annual Urine Albumin-Creatinine Ratio (uACR) 09/04/2024 Depression Screening 11/26/2024 Diabetes: Blood Sugar Contro l Test (HGBA1C) 01/23/2025 07/25/2024 Diabetes: Annual Retina Eye Exam 02/12/2025 02/13/2024 Diabetes: Annual GFR (Glomerular Filtration Rate) 07/25/2025 07/25/2024 COVID-19 Vaccine (2024- 6 season) 2025 11/10/2021, 03/08/2021, 02/08/2021 Diabetes: [...] Author PT STG x 8 visits from [facility] 02/26/2025 General Yes Milton Cuellar, PT Note: [] Pt will increase appleys scratch test IR to mid L spine, [] Pt will increase right shoulder abd active ROM to 115 degrees, [] Pt will increase right shoulder flexion active ROM to 140 degrees, [] Pt will decrease waking frequency to 1 a night due to pain PT LTG x 14 visits from [facility] 02/26/2025 General No Milton Cuellar PT Note: [] Pt will be able to reach back seat with right shoulder, [] Pt will wake < 2/wk due to shoulder pain, [] Pt will be able to reach top shelving with right UE in order to place/remove dishes or groceries [] Pt will be able to cook/prep meals without restrictions due to R shoulder pain Autogenerated Goal Care Plan Autogenerated Problem Claudio Novak MD Procedures Procedure Name Priority Date/Time Associated Diagnosis Comments XR SHOULDER 2+ VIEWS RIGHT Routine 07/01/2025 7:57 AM EDT Pain MG MAMMO DIGITAL DIAGNOSTIC W ABEBE BILAT [...] IMG XR PROCEDURES Final Resul t * MG Mammo Digital Diagnostic w Abebe [...] (World Health Organization Fracture Risk Assessment) The [facility] Department of Internal Medicine recommends using [...] alternative screening schedule based on lucy Islas., [facility] December 14, 2011 for patients with osteopenia [...] Signed Date: 12/29/2024 10:36 ET Workstation ID: [id number] Transcribed By: Self Edit Transcribed Date: 12/29/2024 [...] (World Health Organization Fracture Risk Assessment) The [facility] Department of Internal Medicine recommendsusing National [...] Signed Date: 12/29/2024 10:36 ET Workstation ID: [id number] Transcribed By: Self Edit Transcribed Date: 12/29/2024 10:33 ET Kasandra Mehta MD IMG DXA PROCEDURES Final Result from Last 3 Months or Most Recently Relevant to Health Maintenance Additional Health Concerns Active Problems Noted Date Diagnosed Date Autogenerated Problem 09/21/2025 Insurance [facility] MEDICARE Member Subscriber Plan / Payer (Ef fective 2022-Present) Name:EMMA PRATER Relation to Subscriber:Self Name:Emma Prater Payer ID:[id number] Group ID:[id number] Type:Not on file Address: [place] [address] [address] [address] Care Teams Professor Of Biostatistics Relationship Specialty Start Date End Date Kasandra Mehta MD [address] [place] [address] [facility] - General 01/23/24
--- OUTSIDE RECORDS SUMMARY | 2025-09-22 09:29 | XMS_ITS | Encounter Summary ---
Author Organization [employer] Address [address] [facility] [address] [address] 7[address] [place] [address] Care Team Providers Care Third Grade Teacher Name Role Phone Unavailable Primary Care Provider Unavailabl e Encounter Details Date Type Department Care Team (Late st Contact Info) Description 05/25/2023 Telephone [facility] MEDICINE [address] [place] [address] Rosario Santoyo LPN Social History Tobacco Use [...]
== END 2025-09-22 09:31 | disposition home or self-care (01) ==
LOC: HO.ENCR 08:44
PROVIDERS: PCP Internal Medicine; Visit Provider Physician Assistant Medical
DX: E11.8 Type 2 diabetes mellitus with unspecified complications (principal); Z79.4 Long term (current) use of insulin; K76.0 Fatty (change of) liver, not elsewhere classified; E66.3 Overweight

== ENCOUNTER → 2025-09-22 08:44 | Outpatient (BNVA) | payer OTHER, SELFPAY | PROVIDERS: PCP Internal Medicine; Visit Provider Physician Assistant Medical | DX: E11.8 Type 2 diabetes mellitus with unspecified complications (principal); K76.0 Fatty (change of) liver, not elsewhere classified; E66.3 Overweight; Z79.4 Long term (current) use of insulin; Z68.28 Body mass index [BMI] 28.0-28.9, adult | CPT/HCPCS: 82947; 99212 ==

== ENCOUNTER 2025-11-10 08:56 | Outpatient (AMB) | payer OTHER, SELFPAY ==
--- OUTSIDE RECORDS SUMMARY | 2025-11-05 08:00 | XMS_ITS | Encounter Summary ---
Author Organization [facility] Address [address] [place] [address] Care Team Providers Care Wraparound Facilitator Name Role Phone Kasandra Mehta MD Primary Care Prov ider Reason for Referral * Imaging (Routine) - Authorized Specialty Diagnoses / Procedures Referred By Charles reyes Referred To Contact Radiology Diagnoses Adult general medical examination Encounter for screening mammogram for malignant neoplasm of breast Procedures MG Mammo Digital Screening w Abebe bilat Martha Mcneil PA [address] [place] [address] Phone: tel: fax: External Performed Referral ID Status Reason Start Date Expiration Date V isits Requested Visits Authorized [id number] Authorized 11/05/2025 11/05/2026 1 1 Reason for Visit * Reason Comments Annual Exam Encounter Details Date Type Department Care Team (Late st Contact Info) Description 11/05/2025 8:00 AM EST Office Visit Adult Medicine [address] [phone] Martha Mcneil PA [address] [place] [address] Adult general medical examination (Primary Dx); Encounter for screening mammogram for malignant neoplasm of breast; Screen for STD (sexually transmitted disease); Diabetic polyneuropathy associated with type 2 diabetes mellitus (CMS/HCC V24, CMS/HCC V28); S/P right rotator cuff repair; Essential hypertension; Dyslipidemia; Anxiety; Moderate episode of recurrent major depressive disorder ([facility] V24, [facility] V28); Impacted cerumen of right ear; Screening for depression; Encounter for screening involving social determinants of health (SDoH) Social History Tobacco Use Types Packs/Day Years Used Date Smoking Tobacco: Former Cigarettes 0 Q uit: 11/26/1999 Smokeless Tobacco: Never Tobacco Cessation:Counseling Given: Not Answered Alcohol Use Standard Drinks/Week Comments Yes 0 (1 standard drink = 0.6 oz pur e alcohol) weekends 1 drink or less Housing Instability Answer Date Recorde d Are you worried that in the next 2 months you may not have stable housing? No 11/05/2025 Food Access & Nutrition Answer Date Rec orded Do you have access to a vari ety of food including fruits and vegetables? Yes 11/05/2025 Health Literacy Answer Date Recorded How often do you need to hav e someone help you when you read instructions, pamphlets, or other written material from your doctor or pharmacy? Never 11/05/2025 Caregiver: How often do you need to have someone help you when you read instructions, pamphlets, or other written material from your doctor or pharmacy? Not on file 11/05/2025 Financial Risk Answer Date Recorded How hard is it for you to pa y for the very basics like food, housing, medical care, and air conditioning / heating? Not very hard 11/05/2025 Transportation Answer Date Recorded Has the lack of transportati on kept you from meetings, work, or from getting things needed for daily living? No Has the lack of transportati on kept you from medical appointments or from getting medications? No 11/05/2025 Social Isolation Answer Date Recorded How often do you feel lonely or isolated from th ose around you? Never 11/05/2025 Food Risk Answer Date Recorded Within the past 12 months we worried whether our food would run out before we got money to buy more. Never true 11/05/2025 Within the past 12 months th e food we bought just didn't last and we didn't have money to get more. Never true 11/05/2025 Dependent Care Answer Date Recorded Do you need help finding or paying for care for your loved ones. For example, child life assistant or elderly care for an older adult? No 11/05/2025 Education Answer Date Recorded Do you think completing more education or training, like finishing a GED, going to college, or learning a trade, would be helpful for you? N/A 11/05/2025 Employment and Income Answer Date Recor ded During the last four weeks, have you been actively looking for work? No 11/05/2025 Living Situation Answer Date Recorded What is your living situation? Unrecognized valu e 11/05/2025 Interpersonal Safety Answer Date Record ed Physical Abuse Unrecognized value 10/20/2025 Verbal Abuse Unrecognized value 10/20/2025 Comments No Sex and Gender Information Value Date Recorded Sex Assigned at Female 11/10/2024 2:35 PM EST Legal Sex Female 5:43 AM EST Gender Identity Female 11/10/2024 2:35 PM EST Sexual Orientation Straight 11/10/2024 2: 35 PM EST documented as of this encounter Last Filed Vital Signs Vital Sign Reading Time Taken Comments Blood Pressure 135/64 11/05/2025 7:52 AM EST Pulse 104 11/05/2025 7:52 AM EST Temperature 36.3 C (97.4 F) 11/05/2025 7:52 AM EST Respiratory Rate 17 11/05/2025 7:52 AM EST Oxygen Saturation 97% 11/05/2025 7:52 AM EST Inhaled Oxygen Concentration - - Weight 72.7 kg (160 lb 3.2 oz) 11/05/2025 7:52 A M EST Height 160 cm (5' 3 ) 11/05/2025 7:52 AM EST Body Mass Index 28.38 11/05/2025 7:52 AM EST documented in this encounter Ordered Prescriptions Prescription Sig Dispense Quantity Refills Last Filled Start Date End Date carbamide peroxide (DEBROX) 6.5 % otic solution Administer 5-10 drops into the right ear 2 (two) times a day for 4 days. 15 mL 11/05/2025 documented in this encounter Progress Notes * Crystal Wu MA - 11/05/2025 8:00 AM EST Social Influencers of Health Who provided answers?: Self Within the past 12 months we worried whether our food would run out before we got money to buy more.: Never true Within the past 12 months the food we bought just didn't last and we didn't have money to get more.: Never true How hard is it for you to pay for the very basics like food, housing, medical care, and air conditioning / heating?: Not very hard Are you worried that in the next 2 months you may not have stable housing?: No Do you have access to a variety of food including fruits and vegetables?: Yes Has the lack of transportation kept you from meetings, work, or from getting things needed for daily living?: No Has the lack of transportation kept you from medical appointments or from getting medications?: No How often do you feel lonely or isolated from those around you?: Never How often do you need to have someone help you when you read instructions, pamphlets, or other written material from your doctor or pharmacy?: Never Depression Screening Over the last 2 weeks, how often have you been bothered by little interest or pleasure in doing things?: Several days Over the last 2 weeks, how often have you been bothered by feeling down, depressed, or hopeless?: More than half the days Depression Risk: 3 Additional Depression Screening Over the last 2 weeks, how often have you been bothered by trouble falling or staying asleep, or sleeping too much?: Nearly every day Over the last 2 weeks, how often have you been bothered by feeling tired or having little energy?: Nearly every day Over the last 2 weeks, how often have you been bothered by poor appetite or overeating? : Several days Over the last 2 weeks, how often have you been bothered by feeling bad about yourself -- or that you are a failure or have let yourself or your family down?: Not at all Over the last 2 weeks, how often have you been bothered by trouble concentrating on things, such asreading the newspaper or watching television?: Several days Over the last 2 weeks, how often have you been bothered by moving or speaking so slowly that other people could have noticed? Or the opposite -- being so fidgety or restless that you have been movingaround a lot more than usual?: Several days Over the last 2 weeks, how often have you been bothered by thoughts that you would be better off or of hurting yourself in some way?: Not at all PHQ -9 Depression Risk Score: 12 Screening Result: Positive Risk Category: Moderate * ELIZABETH Camilo - 11/05/2025 8:00 AM EST CHIEF COMPLAINT: Annual Exam IDENTIFIER: Emma Prater is a 69 y.o. old female. HPI: Patient presents today for annual physical exam. Patient is primarily Italian- speaking although is able to converse in Macedonian. Agronomy Supervisor Maykel #[id number] used. At the end of ROS the latin teacher machine loses battery and shuts off. Opts for medical manager staff Crystal Wu MA to help provide translation when needed for remainder of visit rather than wait on machine to recharge. Patient endorses being up-to-date on eye and dental exams. Due for mammogram in December. Has appointment with GI for hepatic steatosis, LFT elevation, colonoscopy. No tobacco use. No excessive alcohol use. No drug use. Not currently sexually active. Agreeable to routine STD testing. Patient follows with external endocrinology at [facility]. She is taking Mounjaro, Lantus, lispro, empagliflozin, and metformin. Patient has history of hypertension and hyperlipidemia. Not currently on hypertensive medication orcholesterol-lowering medication. Recently had rotator cuff repair on right on 10/20/2025. Using narcotic pain control infrequently. Patient has anxiety, depression, and difficulty sleeping. Patient follows with external behavioral health. Seeing her psychiatrist every 3 months and therapy every 3 weeks. She continues with mirtazapine and hydroxyzine. No SI, HI, or plan. ROS: GENERAL: No fever or chills. HEENT: No changes in hearing or vision, nose bleeds or other nasal problems. No acute URI symptoms. NECK: No lumps, pain or neck swelling RESPIRATORY: No cough, wheezing or shortness of breath CARDIOVASCULAR: No chest pain, leg swelling or palpitations BREAST: no lumps, discharge, pain or change in skin GI: No abdominal discomfort, blood in stools or black stools : No dysuria, frequency or incontinence. No hematuria SAIL FINISHER MACHINE: No abnormal vaginal bleeding or abnormal vaginal discharge. MUSCULOSKELETAL: See HPI SKIN: No lesions, rash or itching PSYCH: See HPI HEMATOLOGY/LYMPHOLOGY No issues with bruising or bleeding ENDOCRINE: No cold or heat intolerance, polyuria, polydipsia. See HPI NEURO: No persistent headache, syncope, seizures, weakness or numbness PAST MEDICAL HISTORY: Patient Active Problem List Diagnosis Date Noted Anxiety 11/05/2025 Atherosclerotic cardiovascular disease 11/05/2025 Back pain, chronic 11/05/2025 Fibromyalgia 11/05/2025 Pain, foot, right, chronic 11/05/2025 Knee pain, right 11/05/2025 Cataract 11/05/2025 Cervical radiculopathy 11/05/2025 Cervical spinal stenosis 11/05/2025 Difficulty sleeping 11/05/2025 Dyslipidemia 11/05/2025 Essential hypertension 11/05/2025 External hemorrhoids 11/05/2025 Fibroids 11/05/2025 Plantar fasciitis of right foot 11/05/2025 LFT elevation 11/05/2025 Major depression, recurrent ([facility] V24) 11/05/2025 Osteopenia 11/05/2025 TRISTON (obstructive sleep apnea) 11/05/2025 Vitamin D deficiency 11/05/2025 Diabetic polyneuropathy associated with type 2 diabetes mellitus ([facility] V24, [facility] V28) 11/05/2025 Hepatic steatosis 11/05/2025 Gastroesophageal reflux disease 05/28/2025 Calcific tendonitis of right shoulder 01/09/2025 Surgery follow-up 01/09/2025 Diabetes mellitus due to underlying condition with hyperosmolarity without coma, without long-term current use of insulin ([facility] V24, [facility] V28) 07/25/2024 De Quervain's tenosynovitis 07/25/2024 Postoperative wound infection 07/17/2023 Cervical cord compression with myelopathy ([facility] V24, [facility] V28) 01/08/2023 Left carpal tunnel syndrome 02/28/2022 Trigger finger, right ring finger 12/13/2021 SOCIAL HISTORY: Social History Tobacco Use Smoking status: Former Current packs/day: 0.00 Types: Cigarettes Quit date: 11/26/1999 Years since quittin.9 Smokeless tobacco: Never Substance Use Topics Alcohol use: Yes Comment: weekends 1 drink or less FAMILY HISTORY: Family Status Relation Name Status Mother Father Brother No partnership data on file Family History[1] ACTIVE MEDICATIONS: Medications Taking[2] ALLERGIES: Patient has no known allergies. PHYSICAL EXAM: Blood pressure 135/64, pulse 104, temperature 36.3 ??C (97.4 ??F), temperature source Temporal, resp. rate 17, height 1.6 m (63 ), weight 72.7 kg (160 lb 3.2 oz), SpO2 97%. Body mass index is 28.38 kg/m??. BMI is greater than 25.0 (above the normal range) - see Plan APPEARANCE: Alert and in no acute distress EYES: PERRLA, conjunctiva and sclera normal. EOMI EARS: External ears normal. Right canal with cerumen impaction. Left canal clear. Left TM normal. NOSE/SINUS: Nares normal. Septum midline. Mucosa normal. No drainage or sinus tenderness. THROAT: no erythema or exudates NECK: Neck supple, no adenopathy, thyroid symmetric HEART: RRR with normal S1 and S2 ,no murmurs, no gallops. No JVD LUNG: clear to auscultation BREAST (FEMALE): Examination is declined. Patient will follow-up with SAIL FINISHER MACHINE LYMPH NODES: grossly normal ABDOMEN: Bowel sounds normoactive, no bruits, soft, non-tender, without organomegaly or palpable masses SAIL FINISHER MACHINE (FEMALE): Examination is declined. Patient will follow-up with SAIL FINISHER MACHINE. RECTAL: Examination is declined. GI appointment pending. BACK: No pain to palpation with good flexion and extension EXTREMITIES: Extremities warm and well perfused without clubbing, cyanosis, or edema NEURO: Awake, alert and oriented x 3. Ambulating independently with steady gait. No focal deficit. SKIN: Skin color, texture, turgor normal. No rashes or lesions. PSYCH: Calm. Pleasant. Cooperative LABS/IMAGING: Lab Results Component Value Date WBC 5.2 10/01/2025 HGB 14.6 10/01/2025 HCT 45.2 10/01/2025 MCV 87.4 10/01/2025 Lab Results Component Value Date NA 139 10/01/2025 K 4.1 10/01/2025 CL 107 10/01/2025 CO2 26 10/01/2025 GLUCOSE 190 (H) 10/20/2025 BUN 23 10/01/2025 CREATININE 1.02 10/01/2025 CALCIUM 9.7 10/01/2025 PROT 8.8 (H) 10/01/2025 ALBUMIN 4.3 10/01/2025 BILITOT 0.6 10/01/2025 AST 42 10/01/2025 ALT 93 (H) 10/01/2025 ALKPHOS 114 10/01/2025 EGFR 60 10/01/2025 Lab Results Component Value Date HGBA1C 7.1 (H) 10/01/2025 IMPRESSION: 1. Adult general medical examination 2. Encounter for screening mammogram for malignant neoplasm of breast 3. Screen for STD (sexually transmitted disease) 4. Diabetic polyneuropathy associated with type 2 diabetes mellitus ([facility] V24, [facility] V28) 5. S/P right rotator cuff repair 6. Essential hypertension 7. Dyslipidemia 8. Anxiety 9. Moderate episode of recurrent major depressive disorder ([facility] V24, [facility] V28) 10. Impacted cerumen of right ear PLAN: Diabetes: A1c 7.1%. Patient will continue care with endocrinology. Continue medication regimen as instructed. Continue with low carbohydrate diet, portion control. Continue with eye and podiatric exams. S/p rotator cuff repair: Patient to continue with orthopedics and PT. Hypertension: Blood pressure adequately controlled. Will continue to monitor. Hyperlipidemia: Will update lipid panel. Anxiety/depression/poor sleep: No crisis today. Patient will continue medication regimen as instructed. Patient will continue with supportive treatment/self- care. Patient will continue care with therapy and psychiatry. Cerumen impaction: Patient is counseled on use of Debrox. Pt will initiate 5 drops to right ear. Ptto tilt head so ear being treated points towards the ceiling. Pt will hold medication in ear using cotton ball. Can use of warm stream of water in shower or ear syringe to remove wax at home. If unsuccessful will plan contact the office for irrigation. 1. Health maintenance: The patient presented for an evaluation of general health. As part of this visit, we reviewed the following issues, which are considered an essential part of preventative health in this age group: - Breast cancer screening, which includes clinical exam and mammograms annually - mammogram ordered. May discontinue at age 70 at discretion of patient and provider. - Colon cancer screening (colonoscopy every 10 years/annual FOBT plus flexi sigmoidoscopy every 5 years/double-contrast BE every 5 years/Cologuard every 3 years/Annual FOBT) - pending. May discontinue at age 80 at the discretion of patient and provider. - Blood pressure annual screening performed - Cholesterol screening every five years - ordered - Nutritional and exercise counseling - patient advised to limit portion sizes - Screening for depression - using the PHQ-9 and care for depression is ongoing - Screening for domestic abuse - Prevention of and/or testing for infectious diseases, which may include Chlamydia, Gonorrhea, Syphilis, HIV, Hepatitis C and Tuberculosis - STD testing ordered - One time hepatitis C screening in all adults - Recommendations about immunizations - patient is due for Influenza immunization, COVID-19 vaccination, and RSV vaccination but defers this - Recommendation of an eye exam for glaucoma every 2-4 years in this age range - patient is up-to-date - Screening for substance abuse (including tobacco, alcohol, and recreational drugs) - see Substance & Sexuality section of medical record - Genetic cancer risk screening - NO INDICATION: Hereditary Cancer Syndrome Risk Assessment completed and evaluated. No indication found for genetic testing at this time. - In addition to reviewing these issues, I have reviewed the following sections of the chart: Past Medical History, Social History, and Social History - Did you have a dental problem in the last 6 months? No - Did you have a dental visit in the last 12 months? Yes Emma Prater has agreed to have her blood tested for the HIV antibody. She has been given the opportunity to ask questions and understands that: 1. The test is entirely voluntary. 2. The test results will become part of her medical record. 3. The test results may be released to a hospital if necessary for her care and the protection of the hospital. 4. Further release of the results of the HIV antibody testing to any other outside democrat without her specific consent is prohibited by law. 5. If her test result is positive, the results will be checked by a second, more specific test. Patient understands and agrees to plan. Patient will return to the office in 6 mos for routine carewith PCP. Will contact the office sooner with any problems or concerns. Myself and my colleagues have maintained a long-term, longitudinal relationship with this patient, overseeing care of chronic conditions including diabetes, hypertension, hyperlipidemia, anxiety, depression. This care relationship has significantly influenced my decision making and treatment plans during today's encounter. Orders Placed This Encounter Procedures Chlamydia trachomatis and Neisseria gonorrhoeae molecular study Standing Status: Future Number of Occurrences: 1 Expiration Date: 11/05/2026 To which resulting agency are you sending this order? (Please ensure this field matches Resulting Agency below): [facility]) [[id number]] Specimen Type:: Urine [69] Specimen Source:: Urine, First Catch [352] MG Mammo Digital Screening w Abebe bilat Standing Status: Future Number of Occurrences: 1 Expected Date: 11/05/2025 Expiration Date: 11/05/2026 Scheduling Instructions: [facility] [place] In what REGION should this be scheduled?: External Performed [[id number]] Release to patient: Immediate [1] Lipid panel with reflex to direct LDL Standing Status: Future Number of Occurrences: 1 Expiration Date: 11/05/2026 HIV 1,2 antibody, p24 antigen with reflex to differentiation Standing Status: Future Number of Occurrences: 1 Expiration Date: 11/05/2026 Is this test being used for Screening (absence of signs and/or symptoms) OR Diagnostic (signs/symptoms are present) purposes?: Screen Patient had opportunity to ask questions, and consented to testing, if required by state law?: Yes Treponema pallidum antibody with reflex to RPR and particle agglutination Standing Status: Future Number of Occurrences: 1 Expiration Date: 11/05/2026 Hepatitis C antibody Standing Status: Future Number of Occurrences: 1 Expiration Date: 11/05/2026 Is this test being used for Screening (absence of signs and/or symptoms) OR Diagnostic (signs/symptoms are present) purposes?: Screen Comprehensive metabolic panel Standing Status: Future Number of Occurrences: 1 Expiration Date: 11/05/2026 ELIZABETH Camilo on 11/05/2025 at 9:51 AM EST [1] Family History Problem Relation Name Age of Onset Lung cancer Mother Dementia Father Liver cancer Brother [2] Outpatient Medications Marked as Taking for the 11/05/25 encounter (Office Visit) with ELIZABETH Camilo Medication Sig Dispense Refill acetaminophen (TYLENOL) 500 mg tablet Take 2 tablets (1,000 mg total) by mouth every 8 (eight) hours. 180 each 0 albuterol 0.63 mg/3 mL nebulizer solution 3 mL (0.63 mg total) every 6 (six) hours if needed. aspirin 325 mg EC tablet Take 1 tablet (325 mg total) by mouth 1 (one) time each day for 21 days. To prevent Blood Clots; Take daily for 3 weeks 21 each 0 celecoxib (CeleBREX) 200 mg capsule Take 1 capsule (200 mg total) by mouth 2 (two) times a day. 60 capsule 0 empagliflozin (Jardiance) 25 mg tablet Take 1 tablet (25 mg total) by mouth daily. esomeprazole (NexIUM) [address] capsule Take 1 capsule (20 mg total) by mouth 1 (one) time each day before breakfast. Do not open capsule. hydrOXYzine pamoate (VISTARIL) 25 mg capsule Take 2 capsules (50 mg total) by mouth at bedtime. insulin glargine (LANTUS) 100 unit/mL injection Inject 20 Units under the skin 1 (one) time each day in the morning. insulin lispro 100 unit/mL injection Inject 10 Units under the skin 3 (three) times a day before meals. -Administer within 15 minutes of a meal melatonin 5 mg tablet Take 2 tablets (10 mg total) by mouth at bedtime. metFORMIN (GLUCOPHAGE) 1,000 mg tablet Take 1 tablet (1,000 mg total) by mouth 2 (two) times a day with meals. mirtazapine (REMERON) 15 mg tablet Take 1 tablet (15 mg total) by mouth at bedtime. oxyCODONE (ROXICODONE) 5 mg immediate release tablet Take 0.5-1 tablets (2.5-5 mg total) by mouth every 4 (four) hours if needed for severe pain for up to 7 days. Max Daily Amount: 30 mg 20 each 0 tirzepatide (MOUNJARO) 7.5 mg/0.5 mL injection Inject 0.5 mL (7.5 mg total) under the skin every 7 (seven) days. [DISCONTINUED] tirzepatide (Mounjaro) 5 mg/0.5 mL injection Inject 0.5 mL (5 mg total) under the skin every 7 (seven) days. Last dose 10/06/14 documented in this encounter Plan of Treatment Upcoming Encounters Date Type Department Care Team (Late st Contact Info) Description 11/12/2025 8:30 AM EST Treatment [address] [place] [phone] Anna Khan, PT 11/23/2025 8:30 AM EST Treatment [facility] [address] [phone] Anna Khan, PT 11/25/2025 8:30 AM EST Treatment [facility] [address] [phone] Kurt Alford, DUMPSTER DRIVER 12/01/2025 8:30 AM EST Treatment [facility] [address] [phone] Anna Khan, PT 12/03/2025 8:30 AM EST Treatment [facility] [address] [phone] Anna Khan, PT 12/07/2025 8:50 AM EST Consult Gastroenterology - [address] [phone] Eladia Ding PA [address] [address] 12/08/2025 8:30 AM EST Treatment [facility] [address] [phone] Anna Khan, PT 12/10/2025 10:00 AM EST Treatment [facility] [address] [phone] Kurt Alford, DUMPSTER DRIVER 12/14/2025 8:30 AM EST Treatment [facility] [address] [phone] Kurt Alford, DUMPSTER DRIVER 2025 8:30 AM EST Treatment [facility] Outpatient [facility] [address] [phone] Anna Khan, PT 01/15/2026 8:00 AM EST Office Visit Orthopedic Surgery - [place] 160 175 [facility] 160 [place] [address] Joi Hillman PA 175 [facility] 160 [place] [address] 05/06/2026 8:00 AM EDT Office Visit Adult Medicine [facility] [address] [place], [place] [phone] Kasandra Mehta MD 4 [place], [place] Scheduled Orders Name Type Priority Associated Diagnoses Orde r Schedule MG Mammo Digital Screening w Abebe bilat Imaging Routine Adult general medical examination Encounter for screening mammogram for malignant neoplasm of breast Expected: 11/05/2025, Expires: 11/05/2026 documented as of this encounter Goals Goal Patient Goal Type Associated Problems Recent Progress Patient-Stated? Author PT STG x 8 visits from [facility] 02/26/2025 General Yes Milton Cuellar, PT Note: [] Pt will increase appleys scratch test IR to mid L spine, [] Pt will increase right shoulder abd active ROM to 115 degrees, [] Pt will increase right shoulder flexion active ROM to 140 degrees, [] Pt will decrease waking frequency to 1 a night due to pain PT LTG x 14 visits from [facility] 02/26/2025 General No Milton Cuellar, PT Note: [...] pain Autogenerated Goal Care Plan Autogenerated Problem No Claudio Tafoya MD documented as of this encounter Results * (ABNORMAL) Comprehensive metabolic panel (11/05/2025 8:45 AM EST) Sodium 143 133 - 145 mmol/L 11/05/2025 1:04 PM [facility] Potassium 4.2 3.5 - 5.5 mmol/L 11/05/2025 1:04 PM [facility] Chloride 106 96 - 110 mmol/L 11/05/2025 1:04 PM [facility] CO2 27 21 - 32 mmol/L 11/05/2025 1:04 PM [facility] Anion Gap 10 3 - 11 11/05/2025 1:04 PM [facility] Glucose 137(H) 70 - 100 mg/dL 11/05/2025 1:04 PM [facility] BUN 20 5 - 25 mg/dL 11/05/2025 1:04 PM [facility] Creatinine 0.96 0.50 - 1.10 mg/dL 11/05/2025 1:04 PM [facility] eGFR 65 >=60 mL/min/1. 73m2 11/05/2025 1:04 PM [facility] Comment:Calculation based on the Chronic Kidney Disease Epidemiology Collaboration (CKD-EPI) equation refit without adjustment for race. BUN/Creatinine Ratio 20.8 11/05/2025 1:04 PM [facility] Calcium 8.8 8.5 - 10.5 mg/dL 11/05/2025 1:04 PM [facility] AST (SGOT) 53(H) 10 - 42 unit/L 11/05/2025 1:04 PM [facility] ALT (SGPT) 72(H) 10 - 60 unit/L 11/05/2025 1:04 PM [facility] Alkaline Phosphatase 112 42 - 121 unit/L 11/05/2025 1:04 PM [facility] Total Protein 7.7 6.0 - 8.0 g/dL 11/05/2025 1:04 PM EST [facility] Albumin 4.4 3.2 - 5.0 g/dL 11/05/2025 1:04 PM EST [facility] Total Bilirubin 0.3 0.0 - 1.4 mg/dL 11/05/2025 1:04 PM EST [facility] Blood Venous blood specimen / Unknown Venipuncture / Unknown 11/05/2025 8:45 AM EST 11/05/2025 8:45 AM EST us [facility] BLOOD ORDERABLES Final Resul t Performing Organization Address City/[facility]/ZIP Co de Phone Number [facility] [address] [place] [address], [place] [phone] * Hepatitis C antibody (11/05/2025 8:45 AM EST) Hepatitis C Antibody Negative Negative 11/05/2025 1:29 PM EST [facility] Blood Venous blood specimen / Unknown Venipuncture / Unknown 11/05/2025 8:45 AM EST 11/05/2025 8:45 AM EST us [facility] BLOOD ORDERABLES Final Resul t [facility] [address] [place] [address], [place] [phone] * Treponema pallidum antibody with reflex to RPR and particle agglutination (11/05/2025 8:45 AM EST) Pathologist [facility] T. Pallidum Antibodies Negative Negative 11/05/2025 1:13 PM [facility] Blood Venous blood specimen / Unknown Venipuncture / Unknown 11/05/2025 8:45 AM EST 11/05/2025 8:45 AM EST [facility] BLOOD ORDERABLES Final Resul t Performing Organization Address City/[facility]/ZIP Co de Phone Number [facility] [address] [place] [address], [place] [phone] * HIV 1,2 antibody, p24 antigen with reflex to differentiation (11/05/2025 8:45 AM EST) HIV Combo AB/AG Negative Negative 11/05/2025 1:22 PM EST [facility] Blood Venous blood specimen / Unknown Venipuncture / Unknown 11/05/2025 8:45 AM EST 11/05/2025 8:45 AM EST Narrative [facility] - 11/05/2025 1:22 PM EST This assay is a 4th generation assay allowing for earlier detection of HIV infection by detecting the presence of the HIV-1 p24 antigen as well as the traditional antibodies to HIV type 1 (including group O) and type 2. Use of a 4th generation assay is the current CDC recommendation for HIV screening. [facility] BLOOD ORDERABLES Final Resul t Performing Organization Address [facility]/ZIP Co de Phone Number [facility] [address] [place] [address], [place] [phone] * Chlamydia trachomatis and Neisseria gonorrhoeae molecular study (11/05/2025 8:45 AM EST) Pathologist [facility] Neisseria gonorrhoeae PCR Negative Negative LAB MOLECULAR DIAGNOSTICS METHOD 11/05/2025 1:03 PM EST [facility] Chlamydia trachomatis PCR Negative Negative LAB MOLECULAR DIAGNOSTICS METHOD 11/05/2025 1:03 PM EST [facility] Urine First stream urine specimen / Unknown Non-blood Collection / Unknown 11/05/2025 8:45 AM EST 11/05/2025 8:45 AM EST [facility] MICROBIOLOGY - GENERAL ORDER FAITH Final Result [facility] [address] [place] [address], [place] [phone] * (ABNORMAL) Lipid panel with reflex to direct LDL (11/05/2025 8:45 AM EST) Cholesterol 169 0 - 200 mg/dL 11/05/2025 1:04 PM EST [facility] Triglycerides 154(H) 0 - 150 mg/dL 11/05/2025 1:04 PM [facility] HDL 39(L) >=40 mg/dL 11/05/2025 1:04 PM [facility] LDL Calculated 99 0 - 100 mg/dL 11/05/2025 1:04 PM [facility] Comment:Estimated LDL is liv culated using the Friedewald equation: Total cholesterol - HDL cholesterol - (Triglycerides/5) VLDL Cholesterol Liv 30.8 mg/dL 11/05/2025 1:04 PM [facility] Non HDL Chol. (LDL+VLDL) 130 <145 mg/dL 11/05/2025 1:04 PM [facility] Chol/HDL Ratio 4.3 0.0 - 4.4 11/05/2025 1:04 PM [facility] Blood Venous blood specimen / Unknown Venipuncture / Unknown 11/05/2025 8:45 AM EST 11/05/2025 8:45 AM EST [facility] BLOOD ORDERABLES Final Resul t [facility] [address] [place] [address], [place] [phone] documented in this encounter Visit Diagnoses Diagnosis Adult general medical examination- Primary Unspecified general medical examination Encounter for screening mammogram for malignant neoplasm of breast Screen for STD (sexually transmitted disease) Screening examination for venereal disease Diabetic polyneuropathy associated with type 2 diabetes mellitus ([facility] V24, [facility] V28) S/P right rotator cuff repair Essential hypertension Unspecified essential hypertension Dyslipidemia Other and unspecified hyperlipidemia Anxiety Anxiety state, unspecified Moderate episode of recurrent major depressive disorder ([facility] V24, [facility] V28) Impacted cerumen of right ear Impacted cerumen Screening for depression Encounter for screening involving social determinants of health (SDoH) documented in this encounter Discontinued Medications Medication Sig Discontinue Reason Start Date End Da te senna-docusate (PERICOLACE) 8.6-50 mg per tablet Take 2 tablets by mouth at bedtime for 10 days. May stop if no longer using narcotic medication; Or loose stools Therapy completed 10/20/2025 11/05/2025 tirzepatide (Mounjaro) 5 mg/0.5 mL injection Inject 0.5 mL (5 mg total) under the skin every 7 (seven) days. Last dose 10/06/1411/05/2025 documented as of this encounter Historical Medications * This list may reflect changes made after this encounter. tirzepatide (MOUNJARO) 7.5 mg/0.5 mL injectionIndicatio ns:Adult general medical examination Inject 0.5 mL (7.5 mg total) under the skin every 7 (seven) days. added in this encounter Additional Health Concerns Active Problems Noted Date Diagnosed Date Autogenerated Problem 10/21/2025 Assessment Noted Time PHQ-9 Depression Total Score: 12 025 7:54 AM EST documented as of this encounter Care Teams Wraparound Facilitator Relationship Specialty Start Date End Date Kasandra Mehta MD [address] [place] [phone] PCP - General 01/23/24 documented as of this encounter
--- OUTSIDE RECORDS SUMMARY | 2025-11-05 08:35 | XMS_ITS | Encounter Summary ---
Author Organization [facility] Address [address] [place] [address] Care Team Providers Care Therapeutic Program Worker Name Role Phone Kasandra Mehta MD Primary Care Prov ider Encounter Details Date Type Department Care Team ([facility] st Contact Info) Description 11/05/2025 8:35 AM EST Lab Draw Station [address] [phone] Adult general medical examination; Diabetic polyneuropathy associated with type 2 diabetes mellitus (CMS/HCC V24, CMS/HCC V28); Screen for STD (sexually transmitted disease); Dyslipidemia Social History Tobacco Use Types Packs/Day Years Used Date Smoking Tobacco: Former Cigarettes 0 Q uit: 11/26/1999 Smokeless Tobacco: Never Alcohol Use Standard Drinks/Week Comments Yes 0 [...] care for your loved ones. For example, residential child care counselor or elderly care for an older [...] Info) Description 11/12/2025 8:30 AM EST Treatment [address] [phone] Anna Khan, PT 11/23/2025 8:30 AM EST Treatment [facility] [address] [phone] Anna Khan, PT 11/25/2025 8:30 AM EST Treatment [facility] Outpatient [facility] [address] [place] [phone] Kurt Alford, SYSTEM PROGRAMMER 12/01/2025 8:30 AM EST Treatment [facility] [address] [address] Anna Khan, PT 12/03/2025 8:30 AM EST Treatment [facility] Outpatient [facility] [address] [place] [phone] Anna Khan, PT 12/07/2025 8:50 AM EST Consult Gastroenterology - [address] [place] [address] Eladia Ding PA [address] [place] [address] 12/08/2025 8:30 AM EST Treatment [facility] [address] [phone] Anna Khan, PT 12/10/2025 10:00 AM EST Treatment [facility] [address] [phone] Kurt Alford, SYSTEM PROGRAMMER 12/14/2025 8:30 AM EST Treatment [facility] [address] [phone] Kurt Alford, SYSTEM PROGRAMMER 2025 8:30 AM EST Treatment [facility] [address] [address] Anna Khan, PT 01/15/2026 8:00 AM EST Office Visit Orthopedic Surgery - [place] [address] [place] [address] Joi Hillman PA [address] [facility] 160 [place] [address] 05/06/2026 8:00 AM EDT Office Visit Adult Medicine [facility] [address] [place] [address] Kasandra Mehta MD [address] [place] [address] documented as of this encounter Goals Goal Patient Goal Type Associated Problems Recent Progress Patient-Stated? Author PT STG x 8 visits from [facility] 02/26/2025 General Yes Milton Cuellar [...] pain PT LTG x 14 visits from [facility] 02/26/2025 [facility] No Milton Cuellar PT Note: [] Pt [...] Tafoya MD documented as of this encounter Procedures Procedure Name Priority Date/Time Associated Diagnosis Comments HEPATITIS C ANTIBODY Routine 11/05/2025 8:45 AM EST Adult general medical examination Screen for STD (sexually transmitted disease) HIV 1, 2 ANTIBODY, P24 ANTIGEN WITH REFLEX TO DIFFERENTIATION Routine 11/05/2025 8:45 AM EST Adult general medical examination Screen for STD (sexually transmitted disease) TREPONEMA PALLIDUM ANTIBODY WITH REFLEX TO RPR AND PARTICLE AGGLUTINATION Routine 11/05/2025 8:45 AM EST Adult general medical examination Screen for STD (sexually transmitted disease) LIPID PANEL WITH REFLEX TO DIRECT LDL Routine 11/05/2025 8:45 AM EST Adult general medical examination Diabetic polyneuropathy associated with type 2 diabetes mellitus ([facility] V24, [facility] V28) Dyslipidemia CHLAMYDIA TRACHOMATIS AND NEISSERIA GONORRHOEAE PCR Routine 11/05/2025 8:45 AM EST Adult general medical examination Screen for STD (sexually transmitted disease) COMPREHENSIVE METABOLIC PANEL Routine 11/05/2025 8:45 AM EST Adult general medical examination Diabetic polyneuropathy associated with type 2 diabetes mellitus ([facility] V24, [facility] V28) documented in this encounter Results * Chlamydia trachomatis and Neisseria gonorrhoeae molecular study (11/05/2025 8:45 AM EST) Pathologist [facility] Neisseria gonorrhoeae PCR Negative Negative LAB MOLECULAR DIAGNOSTICS METHOD 11/05/2025 1:03 PM [facility] Chlamydia trachomatis PCR Negative Negative LAB MOLECULAR DIAGNOSTICS METHOD 11/05/2025 1:03 PM [facility] Urine First stream urine specimen / Unknown Non-blood Collection / Unknown 11/05/2025 8:45 AM EST 11/05/2025 8:45 AM EST [facility] MICROBIOLOGY - GENERAL ORDER FAITH Final Result [facility] [address] [place] [address], * (ABNORMAL) Lipid panel with reflex to direct LDL (11/05/2025 8:45 AM EST) Cholesterol 169 0 - 200 mg/dL 11/05/2025 1:04 PM EST [facility] Triglycerides 154(H) 0 - 150 mg/dL 11/05/2025 1:04 PM [facility] HDL 39(L) >=40 mg/dL 11/05/2025 1:04 PM EST [facility] LDL Calculated 99 0 - 100 mg/dL 11/05/2025 1:04 PM [facility] Comment:Estimated LDL is liv culated using the Friedewald equation: Total cholesterol - HDL cholesterol - (Triglycerides/5) VLDL Cholesterol Liv 30.8 mg/dL 11/05/2025 1:04 PM [facility] Non HDL Chol. (LDL+VLDL) 130 <145 mg/dL 11/05/2025 1:04 PM [facility] Chol/HDL Ratio 4.3 0.0 - 4.4 11/05/2025 1:04 PM [facility] Blood Venous blood specimen / Unknown Venipuncture / Unknown 11/05/2025 8:45 AM EST 11/05/2025 8:45 AM EST [facility] BLOOD ORDERABLES Final Resul t [facility] [address] [place] [address], * HIV 1,2 antibody, p24 antigen with reflex to differentiation (11/05/2025 8:45 AM EST) HIV Combo AB/AG Negative Negative 11/05/2025 1:22 PM [facility] Blood Venous blood specimen / Unknown Venipuncture / Unknown 11/05/2025 8:45 AM EST 11/05/2025 8:45 AM EST Narrative [facility] - 11/05/2025 1:22 PM EST This assay is a 4th generation assay allowing for earlier detection of HIV infection by detecting the presence of the HIV-1 p24 antigen as well as the traditional antibodies to HIV type 1 (including group O) and type 2. Use of a 4th generation assay is the current CDC recommendation for HIV screening. us [facility] BLOOD ORDERABLES Final Resul t Performing Organization Address [facility]/ZIP Co de Phone Number [facility] [address] [place] [address], [place] [phone] * Treponema pallidum antibody with reflex to RPR and particle agglutination (11/05/2025 8:45 AM EST) T. Pallidum Antibodies Negative Negative 11/05/2025 1:13 PM EST [facility] Blood Venous blood specimen / Unknown Venipuncture / Unknown 11/05/2025 8:45 AM EST 11/05/2025 8:45 AM EST [facility] BLOOD ORDERABLES Final Resul t Performing Organization Address [facility]/ZIP Co de Phone Number [facility] [address] [place] [address], [place] [phone] * Hepatitis C antibody (11/05/2025 8:45 AM EST) Hepatitis C Antibody Negative Negative 11/05/2025 1:29 PM EST [facility] Blood Venous blood specimen / Unknown Venipuncture / Unknown 11/05/2025 8:45 AM EST 11/05/2025 8:45 AM EST [facility] BLOOD ORDERABLES Final Resul t [facility] [address] [place] [address], [place] [phone] * (ABNORMAL) Comprehensive metabolic panel (11/05/2025 8:45 AM EST) Sodium 143 133 - 145 mmol/L 11/05/2025 1:04 PM EST [facility] Potassium 4.2 3.5 - 5.5 mmol/L 11/05/2025 1:04 PM [facility] Chloride 106 96 - 110 mmol/L 11/05/2025 1:04 PM [facility] CO2 27 21 - 32 mmol/L 11/05/2025 1:04 PM [facility] Anion Gap 10 3 - 11 11/05/2025 1:04 PM [facility] Glucose 137(H) 70 - 100 mg/dL 11/05/2025 1:04 PM [facility] BUN 20 5 - 25 mg/dL 11/05/2025 1:04 PM [facility] Creatinine 0.96 0.50 - 1.10 mg/dL 11/05/2025 1:04 PM [facility] eGFR 65 >=60 mL/min/1. 73m2 11/05/2025 1:04 PM [facility] Comment:Calculation based on the Chronic Kidney Disease Epidemiology Collaboration (CKD-EPI) equation refit without adjustment for race. BUN/Creatinine Ratio 20.8 11/05/2025 1:04 PM [facility] Calcium 8.8 8.5 - 10.5 mg/dL 11/05/2025 1:04 PM [facility] AST (SGOT) 53(H) 10 - 42 unit/L 11/05/2025 1:04 PM [facility] ALT (SGPT) 72(H) 10 - 60 unit/L 11/05/2025 1:04 PM [facility] Alkaline Phosphatase 112 42 - 121 unit/L 11/05/2025 1:04 PM [facility] Total Protein 7.7 6.0 - 8.0 g/dL 11/05/2025 1:04 PM [facility] Albumin 4.4 3.2 - 5.0 g/dL 11/05/2025 1:04 PM [facility] Total Bilirubin 0.3 0.0 - 1.4 mg/dL 11/05/2025 1:04 PM EST [facility] Blood Venous blood specimen / Unknown Venipuncture / Unknown 11/05/2025 8:45 AM EST 11/05/2025 8:45 AM EST us [facility] BLOOD ORDERABLES Final Resul t [facility] [address] [place] [address], documented in this encounter Visit Diagnoses Diagnosis Adult general medical examination Unspecified general medical examination Diabetic polyneuropathy associated with type 2 diabetes mellitus ([facility] V24, [facility] V28) Screen for STD (sexually transmitted disease) Screening examination for venereal disease Dyslipidemia Other and unspecified hyperlipidemia documented in this encounter Additional Health Concerns Active Problems Noted Date Diagnosed Date Autogenerated Problem 10/21/2025 Assessment Noted Time PHQ-9 Depression Total Score: 12 025 7:54 AM EST documented as of this encounter Care Teams Therapeutic Program Worker Relationship Specialty Start Date End Date Kasandra Mehta MD [address] [place] [phone] PCP - General 01/23/24 documented as of this encounter
--- OUTSIDE RECORDS SUMMARY | 2025-11-09 09:00 | XMS_ITS | Encounter Summary ---
Author Organization [facility] Address [address] [place] [address] Care Team Providers Care Silver Steward Name Role Phone Kasandra Mehta MD Primary Care Prov ider Reason for Visit * Consultation (Urgent) - Authorized Specialty Diagnoses / Procedures Referred By Charles reyes Referred To Contact Physical Therapy Diagnoses Calcific tendonitis of right shoulder Claudio Tafoya MD [address] [place] [phone] Phone: tel: fax: [address] [address] Phone: tel: fax: Referral ID Status Reason Start Date Expiration Date Visits Requested Visits Authorized [id number] Authorized Specialty Services Required 07/24/2025 07/24/2026 20 20 Encounter Details Date Type Department Care Team (Latest Contact Info) Description 11/09/2025 9:00 AM EST Evaluation [facility] [address] [address] Anna Khan PT Orthopedic aftercare (Primary Dx) Social History Tobacco Use Types [...] for your loved ones. For example, child development director or elderly care for an older adult? [...] as of this encounter Progress Notes * Anna Khan PT - 11/09/2025 9:00 AM EST [facility] - Outpatient PHYSICAL THERAPY EVALUATION Date: 11/09/2025 Visit Number: 1 Patient Name: Emma Prater : 1955 Age: 69 y.o. Gender: female Diagnosis: ICD-10-CM ICD-9-CM 1. Orthopedic aftercare Z47.89 V54.9 Date of Onset/Surgery: 10/20/2025 Referring Provider: Claudio Tafoya MD Insurance: Payor: FORMERLY [facility] SKILLED [facility]URSING OPTIONS / Plan: FORMERLY [facility] SKILL[facility] OPTIONS / Product Type: *No Product type* / Patient identified by: Anna Khan PT Language: Video Center Punch Operator service provided for pt. preferred language of Setswana. Center Punch Operator # [id number] Chart Reviewed: Yes Medications: Medications Ordered Prior to Encounter[1] Discussed current medications that may impact therapy. Medication list obtained and reviewed. Referto document in medical record. Advised Patient to contact MD with any questions regarding medications and importance of managing medication information. has a past medical history of Anxiety, Arthritis, Chronic pain disorder, Depression, Diabetes mellitus (CMS/HCC V24, CMS/HCC V28), Heart disease, and Joint pain. has a past surgical history that includes Hand surgery (Right); Hand surgery (Left); Other surgicalhistory (01/16/2023); Other surgical history; Appendectomy; Tubal ligation; Spine surgery; Carpal tunnel release; Cervical laminectomy; and Rotator cuff repair (Right, 10/20/2025). has no known allergies. Precautions: FORCE protocol Concurrent Services: No Concurrent Services Previous Medical Care/Therapy: surgery on 10/20/2025 Procedure: right RCR single anchor; calcific deposit debridement with XR; SAD; Augmentation SUBJECTIVE History of Present Illness/Subjective Report: Pt presents s/p procedure noted above after reports of 2 year history of shoulder pain. Pt noting some noncompliance with sling use and also notes accidentally attempting to use arm actively from time to time despite being in phase 1 of force protocol. Current Functional Limitations: Reported by Patient difficulty with all iADLs, difficulty with sleeping at night Is the patient at Risk for Falls: No Pain: VAS: 0/10 at rest. Pt noting moderate pain in the evening with sleeping Location/descriptors: Home Environment: lives alone Prior Level of Function: independent OBJECTIVE General Observations/Comments: presenting with no sling applied despite MD education on last visit regarding need for sling Vitals: There were no vitals filed for this visit. Posture: rounded shoulders. Forward head Extremity Assessments: L shoulder AROM (noninvolved arm) Flexion: 140, Abduction: 120 L shoulder MMT Flexion: 4+/5 Abduction: 4-/5 L shoulder IR/ER: 5/5 R shoulder PROM within non painful ROM Flexion: 90 Abduction: 45-60 degrees Shoulder IR/ER not assessed as pt unable to achieve testing position MMT not appropriate due to recent surgery Reviewed phase 1 of FORCE protocol with patient. Pt completed all exercises appropriately. ASSESSMENT/Response to Treatment: Emma Prater is a 69 y.o. female presenting for outpatient physical therapy evaluation with complaints of impaired R shoulder function s/p procedure noted above. Significant clinical findings include: impaired PROM, reduced functional use of arm. Patients progress may be limited by some early noncompliance verbalized by pt. Skilled Physical therapy is medically necessary to maximize functionaluse of arm. Rehabilitation Potential: Rehab Potential: Condition Has Potential to Improve Motivation for Rehab: Good Support Structure: Good Learning Needs: Were Patient Learning needs assessed: Yes Learning Preferences: Explanation, Demonstration, and Printed Materials Barriers to Learning: No Barriers to Learning Patient Education: [x] Discussed, with patient and/or caregiver, the recommended plan of care/goals, the importance oftherapy and appointment compliance in order to achieve goals in a timely manner. Education provided: POC, HEP Education Provided To: Patient utilizing Explanation, Demonstration, and Printed Material as mode(s) of education. Response to Education: Applied Knowledge, Verbal Understanding, and Demonstrated Skills GOALS STG Will tolerate PROM >90 degrees into flexion and abduction Will be compliant with HEP and recommendations Will begin [hase 2 of force protocol with appropriate technique. LTG Symmetrical AROM B Ues 5/5 strength in B Ues Indepednent with HEP Independent with all iADLs PLAN POC Development/Review: Initial Evaluation; Participants: Patient Skilled Therapy Plan Required: YES- Reasons for Rehab and Medical Necessity -- Reduce Need for Assist with Functional Activity/ADL's/Mobility and Function in Community Planned Therapy Interventions: Cold Pack, Patient / Family Education, Therapeutic Activity, and Therapeutic Exercise Recommended Consults: none Equipment Recommended: none; Equipment Provided: none Frequency/Duration: 1 visit between and November 17 (phase 1), and then 2x/week x4 weeks. BILLING TOTAL TREATMENT TIME: 25 Minutes Evaluation Low Complexity Justification ::: A history with no personal factors and/or co-morbidities that impact the plan of care, An examination of body system(s) using standardized tests and measures addressing 1 - 2 elements from any of the following: body structures and functions, activity limitations, and/or participation restrictions, and Clinical decision making of low complexity using standardized patient assessment instrument and/or measurable assessment of functional outcome Documentation completed by Anna Khan PT [facility] [address] [address] Dept: [phone] Dept PATIENT NAME: Emma Prater : 1955 [...] above stated goals and plan. SIGNATURE: DATE Claudio Tafoya MD Referring provider [1] Current Outpatient Medications on File Prior to Visit Medication Sig Dispense Refill acetaminophen (TYLENOL) 500 [...] daily for 3 weeks 21 each 0 carbamide peroxide (DEBROX) 6.5 % otic solution Administer 5-10 drops into the right ear 2 (two) times a day for 4 days. 15 mL 0 celecoxib (CeleBREX) 200 mg capsule Take [...] (15 mg total) by mouth at bedtime. [] oxyCODONE (ROXICODONE) 5 mg immediate release tablet Take 0.5-1 tablets (2.5-5 mg total) by mouth every 4 (four) hours if needed for severe pain for up to 7 days. Max Daily Amount: 30 mg 20each 0 tirzepatide (MOUNJARO) 7.5 mg/0.5 mL injection Inject 0.5 mL (7.5 mg total) under the skin every 7 (seven) days. [DISCONTINUED] senna-docusate (PERICOLACE) 8.6-50 mg per tablet Take 2 tablets by mouth at bedtime for 10 days. May stop if no longer using narcotic medication; Or loose stools (Patient not taking: Reported on 11/05/2025) 20 each 0 [DISCONTINUED] tirzepatide (Mounjaro) 5 mg/0.5 mL injection Inject 0.5 mL (5 mg total) under the skin every 7 (seven) days. Last dose 10/06/14 No current facility-administered medications on file prior to visit. documented in this encounter Plan of Treatment Upcoming Encounters Date Type Department Care Team (Late st Contact Info) Description 11/12/2025 8:30 AM EST Treatment [address] [phone] Anna Khan, PT 11/23/2025 8:30 AM EST Treatment [address] [phone] Anna Khan, PT 11/25/2025 8:30 AM EST Treatment [address] [phone] Kurt Alford, ART APPRAISER 12/01/2025 8:30 AM EST Treatment [address] [phone] Anna Khan, PT 12/03/2025 8:30 AM EST Treatment [address] [phone] Anna Khan, PT 12/07/2025 8:50 AM EST Consult Gastroenterology - [address] [address] Eladia Ding PA [address] [address] 12/08/2025 8:30 AM EST Treatment [address] [address] Anna Khan, PT 12/10/2025 10:00 AM EST Treatment [address] [place] [phone] Kurt Alford, ART APPRAISER 12/14/2025 8:30 AM EST Treatment [facility] [address] [phone] Kurt Alford, ART APPRAISER 2025 8:30 AM EST Treatment [facility] [address] [phone] Anna Khan, PT 01/15/2026 8:00 AM EST Office Visit Orthopedic Surgery [facility] [address] [phone] Joi Hillman PA [address] [address] 05/06/2026 8:00 AM EDT Office Visit Adult Medicine [address] [phone] Kasandra eMhta MD [address] [place] [address] documented as of this encounter Goals Goal Patient Goal Type Associated Problems Recent Progress Patient-Stated? Author PT STG x [address] [facility] 02/26/2025 General Yes Milton Cuellar, [...] Care Plan Autogenerated Problem Claudio Novak MD documented as of this encounter Visit Diagnoses Diagnosis Orthopedic aftercare- Primary Unspecified orthopedic aftercare documented in this encounter Additional Health Concerns Active Problems Noted Date Diagnosed Date Autogenerated Problem 10/21/2025 Assessment Noted Time PHQ-9 Depression Total Score: 12 025 7:54 AM EST documented as of this encounter Care Teams Silver Steward Relationship Specialty Start Date End Date Kasandra Mehta MD [address] [place] [phone] PCP - General 01/23/24 documented as of this encounter
[2025-11-10 09:00] VITALS: BP 130/72; PULSE 102; O2SAT 98; BMI 29.0
--- NOTE | 2025-11-10 09:00 | MHC.OFFVIS ---
Vital Signs 11/10/25 09:00 Height 5 ft 3 in Weight 163 lb 12.855 oz BMI 29.0 BP 130/72 Blood Pressure Location Lt brachial Position Sitting Pulse 102 H Pulse Source Pulse Oximeter Pulse Oximetry (%) 98 Oxygen Delivery Method Room Air Intake Visit Reasons: Type II diabetes Intake Note: Patient present today to follow up on Type 2 Diabetes Mellitus. Patient receives Freestyle Lisa 3 Plus through: [facility] Pharm[facility] Last Diabetic Eye exam: Last exam was sometime this year, not sure of month. Last Podiatry Visit: Last visit was about months ago. Random Glucose: 168 mg/dl HgA1C: 7.0% Human Resources Specialist Required: Yes Human Resources Specialist Language: Pole Maker Services: Human Resources Specialist Present Human Resources Specialist Name: Cassie [id number] Information Interpreted: non-clinical & clinical Accompanied by: Self / Same As Patient Allergies No Known Allergies Allergy (Verified 11/10/25 09:05) Medication List - Last Reconciled 11/10/25 by ELIZABETH Jakcson albuterol sulfate 90 mcg/actuation 2 inhalations inhalation Q4-6H PRN albuterol sulfate 0.63 mg (3 mL) inhalation QID PRN blood sugar diagnostic (FreeStyle Precision Wellington Strips) As directed once a day blood sugar diagnostic (FreeStyle Lite Strips) As directed three times a day if glucose sensor fails or to confirm readings blood-glucose meter (FreeStyle Lite Meter kit) As directed for use with freestyle test strips blood-glucose sensor (FreeStyle Lisa 3 Plus Sensor device) Apply new sensor every 15 days empagliflozin (Jardiance) 25 mg PO DAILY esomeprazole magnesium 20 mg PO DAILY glucose (Dex4 Glucose Quick Dissolve) 16 grams (4 x 4 gram) PO Q15M PRN hydroxyzine pamoate 25 mg PO DAILY PRN insulin glargine (Lantus Solostar U-100 Insulin) 14 units subcut QAM insulin lispro subcutaneously 3 times a day; 6 units before breakfast and 8 units before lunch and dinner lancets (FreeStyle Lancets) 4 times a day prn sensor failure or to confirm glucose melatonin 10 mg PO BEDTIME PRN melatonin mg PO metformin 1,000 mg PO BID mirtazapine 15 mg PO BEDTIME peg 3350-electrolytes 236-22.74-6.74 -5.86 gram (Golytely) 240 mL PO Q10M pen needle, diabetic (Easy Comfort Pen Taylor) USE DIRECTED TWICE DAILY [shower chair Shower chair] simvastatin 10 mg PO DAILY tirzepatide (Mounjaro) 10 mg (0.5 mL) subcut QWEEK [Updraft machine As directed] HPI Comments Details: This is a 69-year-old female with a past medical history of hepatic steatosis, type 2 diabetes, TRISTON, hypertension, CAD, hyperlipidemia and depression presenting for diabetic management. Persian video conference interpreter used for the appointment. She had shoulder surgery in September. She was diagnosed with type 2 diabetes 27 years ago. There is a family history of diabetes in 2 of her brothers and her uncles and aunts. Denies family history of Type I DM. Her hemoglobin A1c is 7% today. Current medications: Mounjaro 7.5 mg weekly Lantus 20 units daily Humalog 10 units before breakfast, 12 units before lunch and dinner Jardiance 25 mg daily Metformin 1000 mg twice daily CGM review: Very high 2% High 20% Target 78% Low 0% GMI 7% My interpretation is she has occasional post prandial hyperglycemia. Past medication: Ozempic switched to Mounjaro because she had weight gain on Ozempic.She had not lost weight since her last appointment, but she also forgot to decrease the insulin doses we talked about. Micro and macrovascular complications: Neuropathy, CAD 1 episode of low blood sugar a few weeks ago. She had lab work done at [facility], but the records were not sent. She will sign a release. ROS: Constitutional: No unexplained weight loss, fever, chills, fatigue or night sweats. Eyes: No vision changes Respiratory: No shortness of breath Cardiovascular: No chest pain Gastrointestinal: No anorexia, nausea, vomiting or diarrhea. No abdominal pain or blood in stool. Neurologic: No numbness or tingling in the extremities. Endocrine: No cold or heat intolerance. No polyuria or polydipsia. Physical exam: Constitutional: Alert, in no distress. Head: Normocephalic. Neck: Supple, Full range of motion. No lymphadenopathy. No palpable thyroid masses. Respiratory: Clear to auscultation. Cardiovascular: S1 S2 regular. No murmurs. [facility] Medical History (Updated 09/22/25 @ 09:35 by ELIZABETH Jackson) Overweight Controlled type 2 diabetes mellitus Fatty liver Fibroids PMB (postmenopausal bleeding) Osteopenia Dyslipidemia Diabetic polyneuropathy associated with type 2 diabetes mellitus Diabetes type 2, uncontrolled Diabetes 1.5, managed as type 1 Panic anxiety syndrome Hospital discharge follow-up Vitamin D deficiency Carpal tunnel syndrome Incontinence Hemorrhoids Tubal occlusion Insomnia Elevated cholesterol Depression Hypertension IDDM (insulin dependent diabetes mellitus) Surgical History (Updated 11/10/25 @ 09:08 by JACOBO Jordan) History of shoulder surgery Hx of cataract surgery History of neck surgery History of surgery History of colonoscopy History of hemorrhoidectomy History of carpal tunnel release History of bladder surgery S/P sinus surgery Hx of breast reduction, elective Hx of appendectomy H/O tubal ligation History of heart artery stent Family History Father No problems noted. Mother Heart disease Lung cancer Brother Liver cancer Brother Renal cancer HTN (hypertension) Diabetes mellitus Maternal Grandfather No problems noted. Maternal Grandmother No problems noted. Paternal Grandfather No problems noted. Paternal Grandmother No problems noted. Maternal Uncle Diabetes mellitus Paternal Uncle Diabetes mellitus Son No problems noted. Daughter No problems noted. Family/Other History of breast cancer Social History Housing: House Alcohol intake: current Alcohol intake frequency: holidays/special occasions only Patient Tobacco Use Status: Former Tobacco user e-Cigarette/Vaping Use: Never Used service: No Current occupational status: disabled Current occupation: right hand dominant Sexual orientation: Straight/Heterosexual Gender identity: Female Cognitive needs: No Hearing needs: No Vision needs: Yes Female Reproductive History Menstrual Age of Menarche: 14 Physical Exam Vital Signs: Last Vital Signs Pulse 102 H 11/10/25 09:00 BP 130/72 11/10/25 09:00 Pulse Ox 98 11/10/25 09:00 Oxygen Delivery Method Room Air 11/10/25 09:00 BMI result Body Mass Index 29.0 Office Procedures Glucose Monitoring Details Details: see HPI 77359 - Glucose monitoring, continuous-physician I&R Procedure code (CPT) selection complete Results AMB Hemoglobin A1c AMB Hemoglobin A1c 7.0 % Last Edit by JACOBO Jordan on 12/16/25 09:20 Results Reviewed Results Reviewed: Laboratory Last Values Glucose (Clinic) 168 mg/dL (60-115) H 11/10/25 09:09 Laboratory Tests 08/08/22 08/19/24 08/19/24 16:10 08:02 08:12 Plt Count Creatinine Estimated GFR AST ALT B-Natriuretic Peptide Triglycerides 233 H Cholesterol 189 LDL Cholesterol, Calc 105 H HDL Cholesterol 38 L Vitamin B12 746 TSH Urine Creatinine 89.01 Urine Microalbumin 11.0 Microalb/Creat Ratio 12.3 08/22/24 11/17/24 10:36 15:45 Plt Count 179 Creatinine 0.80 Estimated GFR > 60 AST 42 H ALT 72 H B-Natriuretic Peptide < 10 Triglycerides Cholesterol LDL Cholesterol, Calc HDL Cholesterol Vitamin B12 TSH 1.24 Urine Creatinine Urine Microalbumin Microalb/Creat Ratio Assessment & Plan Assessment & Plan (1) Controlled type 2 diabetes mellitus: Code(s): E11.9 - Type 2 diabetes mellitus without complications Category: Medical (2) Fatty liver: Code(s): K76.0 - Fatty (change of) liver, not elsewhere classified Category: Medical (3) Overweight: Code(s): E66.3 - Overweight Category: Medical Plan In summary this is a 69-year-old female with type 2 diabetes with complications. We will increase GLP 1 to promote weight loss and decrease insulin requirement. Increase Mounjaro to 10 mg weekly Decrease Lantus to 14 units daily Humalog 6 units before breakfast, 8 units before lunch and dinner Jardiance 25 mg daily Metformin 1000 mg twice daily Reviewed treatment of hypoglycemia. Avoid alcohol and processed foods. Follow a low-cholesterol diet. She has been referred to [facility] for colon cancer screening and hepatic steatosis. Declined referral to dietitian. She was seen by the dietitian in the past. She will sign a release for her lab results from [facility]. Follow up in 1 month for type 2 diabetes. Orders: Orders AMB Hemoglobin A1c Today ELIZABETH Jackson E11.8 - Type 2 diabetes mellitus with unspecified complications, Z13.9 - Encounter for screening, unspecified, Z79.4 - senior care provider (current) use of insulin AMB Glucose Monitoring Today ELIZABETH Jackson E11.9 - Type 2 diabetes mellitus without complications Medications: New tirzepatide (Mounjaro) 10 mg (0.5 mL) subcut QWEEK 2 mL 0RF ELIZABETH Jackson Changed From insulin glargine (Lantus Solostar U-100 Insulin) 20 units (0.2 mL) subcut QAM 15 mL 6RF To insulin glargine (Lantus Solostar U-100 Insulin) 14 units subcut QAM Tiffanie Gooden NP Discontinued tirzepatide (Mounjaro) Discontinued Reason: Doctor's Order 7.5 mg (0.5 mL) subcut QWEEK 2 mL 0RF tirzepatide (Mounjaro) Discontinued Reason: Doctor's Order 5 mg (0.5 mL) subcut QWEEK 2 mL 1RF Patient Instructions: Increase Mounjaro to 10 mg weekly Decrease Lantus to 14 units daily Humalog 6 units before breakfast, 8 units before lunch and dinner Jardiance 25 mg daily Metformin 1000 mg twice daily Aumentar la dosis de Mounjaro a 10 mg semanales Disminuir la dosis de Lantus a 14 unidades diarias Humalo unidades antes del desayuno, 8 unidades antes del almuerzo y la saul Jardiance 25 mg diarios Metformina 1000 mg dos veces al d?a If you experience low blood sugar, treat this by eating a chewable fruit candy like skittles or jelly beans (about 8 pieces), 4 ounces (1/2 cup) of fruit juice (not diet), 1 tablespoon of honey or 4 glucose tablets. If your blood sugar is under 50, take double the amount of one of the above. Recheck your blood sugar in 15 minutes. Coding Level of Care Code Est Pt Level 4 (49370) Diagnoses Controlled type 2 diabetes mellitus E11.9 Fatty liver K76.0 Overweight E66.3 CPT Codes Details - CPT: 06989 - Glucose monitoring, continuous-physician I&R ([id number])
[2025-11-10 09:15] LABS: Glucose, Whole Blood 168 mg/dL (60-115)
--- OUTSIDE RECORDS SUMMARY | 2025-11-10 09:56 | XMS_ITS | Patient Health Record ---
Author Organization [facility] Address [address] [place] [address] Care Team Providers Care Fresh Work Wrapper Layer Name Role Phone Tomy HUNTER, Asma Primary Care Provider Octavio Green [phone] Reason For Referral No Information Social History Social History Additional Details Category Social Info Options Details Miscellaneous: Marital status: single Plan Of Treatment No Information Insurance Providers Payer Name Payer Address Payer Phone Subscriber Number Group Number Insured Name Patient Relationship to Insured Coverage Start Date Coverage End Date [facility] [address] [address] [place], [place] [id number] CARLO CHRISTENSEN Self - patient is the insured Medical (General) History Medical History History ICD Code colonoscoy done elsewhere in 2008 diabetes mellitus coronary atery disease Surgical History Surgery Date(Month/Year) hemorrhoid and fissure surgery breast reduction appendectomy
--- OUTSIDE RECORDS SUMMARY | 2025-11-10 09:57 | XMS_ITS | Clinical Summary ---
Author Organization 175 [facility] Address [address] [place] [address] Phone Care Team Providers Care Exhaust Equipment Operator Name Role Phone Kasandra Mehta MD Primary Care Prov ider Allergies No known active allergies Medications melatonin 5 mg tablet Take 2 tablets (10 mg total) by mouth at bedtime. 04/11/20 24 Active metFORMIN (GLUCOPHAGE) 1,000 mg tablet Take 1 tablet (1,000 mg total) by mouth 2 (two) times a day with meals. Active mirtazapine (REMERON) 15 mg tablet Take 1 tablet (15 mg total) by mouth at bedtime. Active insulin glargine (LANTUS) 100 unit/mL injection Inject 20 Units under the skin 1 (one) time each day in the morning. Active hydrOXYzine pamoate (VISTARIL) 25 mg capsule Take 2 capsules (50 mg total) by mouth at bedtime. Active empagliflozin (Jardiance) 25 mg tablet Take 1 tablet (25 mg total) by mouth daily. Active albuterol 0.63 mg/3 mL nebulizer solution 3 mL (0.63 mg total) every 6 (six) hours if needed. 03/14/20 24 Active esomeprazole (NexIUM) [address] capsule Take 1 capsule (20 mg total) by mouth 1 (one) time each day before breakfast. Do not open capsule. Active insulin lispro 100 unit/mL injection Inject 10 Units under the skin 3 (three) times a day before meals. -Administer within 15 minutes of a meal Active aspirin 325 mg EC tablet Take 1 tablet (325 mg total) by mouth 1 (one) time each day for 21 days. To prevent Blood Clots; Take daily for 3 weeks 21 each 10/20/20 25 Active celecoxib (CeleBREX) 200 mg capsule Take 1 capsule (200 mg total) by mouth 2 (two) times a day. 60 capsule 10/20/20 25 Active acetaminophen (TYLENOL) 500 mg tablet Take 2 tablets (1,000 mg total) by mouth every 8 (eight) hours. 180 each 10/20/20 25 Active tirzepatide (MOUNJARO) 7.5 mg/0.5 mL injectionIndic ations:Adult general medical examination Inject 0.5 mL (7.5 mg total) under the skin every 7 (seven) days. Active atorvastatin (LIPITOR) 10 mg tablet Take 1 tablet (10 mg total) by mouth at bedtime. 90 each 11/09/20 Active tirzepatide (Mounjaro) 5 mg/0.5 mL injection Inject 0.5 mL (5 mg total) under the skin every 7 (seven) days. Last dose 10/06/14 Discontinued oxyCODONE (ROXICODONE) 5 mg immediate release tabletIndicati ons:Calcific tendonitis of right shoulder Take 0.5-1 tablets (2.5-5 mg total) by mouth every 4 (four) hours if needed for severe pain for up to 7 days. Max Daily Amount: 30 mg 20 each 10/20/20 senna-docusate (PERICOLACE) 8.6-50 mg per tablet Take 2 tablets by mouth at bedtime for 10 days. May stop if no longer using narcotic medication; Or loose stools 20 each 10/20/20 25 Discontinued(Th erapy completed) carbamide peroxide (DEBROX) 6.5 % otic solution Administer 5-10 drops into the right ear 2 (two) times a day for 4 days. 15 mL 11/05/20 25 Active Problems Problem Noted Date Diagnosed Date Anxiety 11/05/2025 Atherosclerotic cardiovascular disease Overview (11/05/2025): [facility] [place] Back pain, chronic 11/05/2025 Fibromyalgia 11/05/2025 Pain, foot, right, chronic 11/05/2025 Knee pain, right 11/05/2025 Cataract 11/05/2025 Cervical radiculopathy 11/05/2025 Cervical spinal stenosis 11/05/2025 Difficulty sleeping 11/05/2025 Dyslipidemia 11/05/2025 Essential hypertension 11/05/2025 External hemorrhoids 11/05/2025 Fibroids 11/05/2025 Plantar fasciitis of right foot 11/05/2025 LFT elevation 11/05/2025 Major depression, recurrent 11/05/2025 Osteopenia 11/05/2025 TRISTON (obstructive sleep apnea) 11/05/2025 Vitamin D deficiency 11/05/2025 Diabetic polyneuropathy asso ciated with type 2 diabetes mellitus 11/05/2025 Hepatic steatosis 11/05/2025 Gastroesophageal reflux disease 05/28/2025 Assessment & Plan (05/28/2025 11:16 AM EDT): Well controlled on esomeprazole. Will continue to medication. Calcific tendonitis of right shoulder 01/09/2025 Surgery follow-up 01/09/2025 Diabetes mellitus due to und erlying condition with hyperosmolarity without coma, without long-term current use of insulin 07/25/2024 Assessment & Plan (05/28/2025 8:46 AM EDT): Fair control of diabetes. Patient will continue with yearly Podiatric and Ophthomologic evaluations.Will consider Angiotensin Converting Enzyme Inhibitor for renal protection. Continue Ozempic, lispro, glargine, Jardiance, and metformin. Encouraged to keep the appointments with the specialist. Patient had some blood tests with her managing editor. A1c: 7.4 Assessment & Plan (11/27/2024 11:44 AM EST): poor control of diabetes. Patient will continue with yearly Podiatric and Ophthomologic evaluations.Will consider Angiotensin Converting Enzyme Inhibitor for renal protection. Continue Ozempic, lispro, glargine, Jardiance, and metformin. Encouraged to keep the appointments with the specialist. Patient had some blood tests with her managing editor. A1c: 7.4 De Quervain's tenosynovitis 07/25/2024 Postoperative [...] Encounters Date Type Department Care Team Description 11/09/2025 9:00 AM EST Evaluation [facility] Outpatient [facility] - [address] [phone] Anna Khan, PT Orthopedic aftercare (Primary Dx) 11/05/2025 8:35 AM EST Lab Draw Station - [address] [phone] Adult general medical examination; Diabetic polyneuropathy associated with type 2 diabetes mellitus (CMS/[facility] V24, [facility] V28); Screen for STD (sexually transmitted disease); Dyslipidemia 11/05/2025 8:00 AM EST Office Visit Adult Medicine [address] [phone] Martha Mcneil PA Adult general medical examination (Primary Dx); Encounter for screening mammogram for malignant neoplasm of breast; Screen for STD (sexually transmitted disease); Diabetic polyneuropathy associated with type 2 diabetes mellitus ([facility] V24, [facility] V28); S/P right rotator cuff repair; Essential hypertension; Dyslipidemia; Anxiety; Moderate episode of recurrent major depressive disorder ([facility] V24, [facility] V28); Impacted cerumen of right ear; Screening for depression; Encounter for screening involving social determinants of health (SDoH) 11/05/2025 Results Follow-Up Adult [address] [phone] Martha Mcneil PA 11/04/2025 11:00 AM EST Office Visit Orthopedic Surgery [facility] [address] [phone] Joi Hillman PA S/P right rotator cuff repair (Primary Dx); Post-operative state; Calcific tendonitis of right shoulder 10/30/2025 Telephone Adult Medicine [address] [phone] Kasandra Xie MD 10/20/2025 7:36 AM EST Anesthesia Event [facility] OR [address] [place] [address] Yeyo Osuna MD 10/20/2025 7:30 AM EST - 10/20/2025 10:00 AM EST Surgery [facility] OR [address] [place] [phone] Claudio Tafoya MD RIGHT SHOULDER ARTHROSCOPY,SUBACROMIA L DECOMPRESSION,REMOVAL CALCIFIC TENDONITITS, REPAIR ROTATOR CUFF [00652 (CPT )] 10/20/2025 5:33 AM EST - 10/20/2025 1:50 PM EST Hospital Encounter [facility] OR [address] [place] [phone] Claudio Tafoya MD Calcific tendonitis of right shoulder (Primary Dx) Discharge Disposition: Home or Self Care 10/09/2025 Telephone Orthopedic Surgery [facility] [address] [phone] Jessica June MA 10/08/2025 Telephone Orthopedic Surgery [facility] [address] [phone] Jessica June [place] 10/02/2025 Results Follow-Up Adult Medicine [address] [phone] Kia Leone PA 10/01/2025 10:45 AM EST Lab Draw [address] Preop cardiovascular exam; Diabetes mellitus due to underlying condition with hyperosmolarity without coma, without long-term current use of insulin ([facility] V24, [facility] V28) 10/01/2025 10:00 AM EST Consult Adult Medicine [address] [phone] Kasandra Xie MD Preop cardiovascular exam (Primary Dx); Calcific tendonitis of right shoulder; Diabetes mellitus due to underlying condition with hyperosmolarity without coma, without long-term current use of insulin ([facility] V24, [facility] V28) 09/28/2025 Telephone Adult Medicine [address] [phone] Kasandra Xie MD 09/23/2025 Telephone Adult Medicine [address] [phone] Kasandra Xie MD 09/11/2025 Telephone Adult Medicine [address] [phone] Kasandra Xie MD 08/17/2025 Telephone Orthopedic Surgery - [place] 250 175 [facility] [address] [place] [phone] Jessica June MA 08/13/2025 [place] [facility] [place] 250 175 [facility] [address] [place] [phone] Jessica June MA 08/12/2025 3:30 PM EDT Treatment [facility] Outpatient [facility] [address] [place] [phone] Sun Elias, PT Calcific tendonitis of right shoulder (Primary Dx) 08/11/2025 [place] [facility] 160 175 [facility] 160 [place] [phone] Joi Hillman PA from Last 3 Months Immunizations Immunization Administration [...] finger release OTHER SURGICAL HISTORY 01/16/2023 PROCEDURE: CA ARTHRD ANT INTERDY CERVCL BELW C2 EA ADDL NTRSPC; COMMENT: C3-4 ACDF, Dr. Mckeon OTHER SURGICAL HISTORY PROCEDURE: HISTORY OTHER; COMMENT: Bladder left APPENDECTOMY PROCEDURE: HISTORICAL APPENDECTOMY TUBAL LIGATION PROCEDURE: HISTORICAL TUBAL LIGATION SPINE SURGERY CARPAL TUNNEL RELEASE right hand 7 sx and eftl6 sx CERVICAL LAMINECTOMY ROTATOR CUFF REPAIR 10/20/2025 Right right RCR single anchor; calcific deposit debridement with XR; SAD; Augmentation Medical History Medical History Date Comments Diabetes mellitus (CMS/HCC V24, CMS/HCC V28) DX:Diabetes mellitus (HCC) Depression DX:Depression Anxiety DX:Anxiety Arthritis DX:Arthritis Joint pain Heart disease cardiac stenting Chronic pain disorder Family History Medical History Relation Name Comments [...] loved ones. For example, child and family services specialist or elderly care for an older [...] Orientation Straight 11/10/2024 2: 35 PM EST Last Filed Vital Signs Vital Sign Reading [...] Mass Index 28.38 11/05/2025 7:52 AM EST Plan of Treatment Upcoming Encounters Date Type Department Care Team (Late st Contact Info) Description 11/12/2025 8:30 AM EST Treatment [facility] [address] [phone] Anna Khan, PT 11/23/2025 8:30 AM EST Treatment [facility] [address] [phone] Anna Khan, PT 11/25/2025 8:30 AM EST Treatment [facility] [address] [phone] Kurt Alford, HUNTER 12/01/2025 8:30 AM EST Treatment [facility] [address] [phone] Anna Khan, PT 12/03/2025 8:30 AM EST Treatment [facility] [address] [phone] Anna Khan, PT 12/07/2025 8:50 AM EST Consult Gastroenterology - 299 [facility] [address] [phone] Eladia Ding PA [address] [address] 12/08/2025 8:30 AM EST Treatment [facility] [address] [phone] Anna Khan, PT 12/10/2025 10:00 AM EST Treatment [facility] [address] [phone] Kurt Alford, AUTOMOBILE RADIO REPAIRER 12/14/2025 8:30 AM EST Treatment [facility] [address] [phone] Kurt Alford, AUTOMOBILE RADIO REPAIRER 2025 8:30 AM EST Treatment [facility] [address] [phone] Anna Khan, PT 01/15/2026 8:00 AM EST Office Visit Orthopedic Surgery [facility] [address] [phone] Joi Hillman PA [address] [address] 05/06/2026 8:00 AM EDT Office Visit Adult Medicine [address] [phone] Kasandra Mehta MD [address] [place] [address] Health Maintenance Due Date Last Done Comments Colorectal Cancer Screening: Colonoscopy 1955 RSV Immunization Adult Patients (1 - Risk 50-74 years 1-dose series) 2007 Medicare Annual Wellness Visit 11/05/2022 Diabetes: Annual Urine Albumin-Creatinine Ratio (uACR) 09/04/2024 Diabetes: Annual Retina Eye Exam 02/12/2025 02/13/2024 Diabetes: Annual Foot Exam 08/15/2025 08/15/2024 Diabetes: Blood Sugar Contro l Test (HGBA1C) 03/31/2026 10/01/2025, 07/25/2024 Falls Risk Assessment 10/20/2026 10/20/2025 , 08/15/2024 Diabetes: Annual GFR (Glomerular Filtration Rate) 11/05/2026 11/05/2025, 10/01/2025, 07/25/2024 Hypertension/CHF/CAD Annual BMP Blood Test 11/05/2026 11/05/2025, 10/01/2025, 07/25/2024 Social Influencers of Health Screening 11/05/2026 11/05/2025, 05/28/2025 Breast Cancer Screening 01/20/2027 01/20/2025 DTaP,Tdap,and Td Vaccines (4 - Td or Tdap) 06/25/2027 06/25/2017, 02/13/2014, 11/26/2005 Cholesterol Screening (Lipid Panel) 11/05/2030 11/05/2025 Osteoporosis Screening (Bone Density Screening) 12/29/2034 12/29/2024 COVID-19 Vaccine Discontinued 11/10/2021, 03/08/2021, 02/08/2021 Zoster Vaccines Completed 09/25/2023, 07/24/2023 Depression Screening Completed 11/05/2025 Hepatitis C Screening Completed 11/05/2025 HIB Vaccines Aged Out No longer eligi [...] Author PT STG x 8 visits from [facility] 02/26/2025 General Yes Milton Cuellar PT Note: [] Pt will increase appleys scratch test IR to mid L spine, [] Pt will increase right shoulder abd active ROM to 115 degrees, [] Pt will increase right shoulder flexion active ROM to 140 degrees, [] Pt will decrease waking frequency to 1 a night due to pain PT LTG x 14 visits from [facility] 02/26/2025 General No Milton Cuellar, PT Note: [...] Plan Autogenerated Problem No Claudio Tafoya MD Medical Devices Implanted Type Area Vacuum Conditioner Operator Device Identifier Shelf Expiration Date Model / Serial / Lot Anchors Tendon 8 - Snone - [id number] Implanted:Qty: 1 on 10/20/2025 by Claudio Tafoya MD at [facility] Arthroscopy Implants Sports Med Right: Shoulder [employer] - ENDOSCOPY 05/04/2028 2504-1 / NONE / [id number] [employer] Bone Arthro Del Sys Advncd - Snone - [id number] Implanted:Qty: 1 on 10/20/2025 by Claudio Tafoya MD at [facility] Arthroscopy Implants Sports Med Right: Shoulder [employer]W - ENDOSCOPY 04/28/2028 [id number] / NONE / [id number] [employer] Sut 5.5mm Healicoil Regenesorb 3 Sutures - Snone - [id number] Implanted:Qty: 1 on 10/20/2025 by Claudio Tafoya MD at [facility] Arthroscopy Implants Sports Med Right: Shoulder [employer]HEW - ENDOSCOPY 05/07/2028 [id number] / NONE / [id number] Bioinductive Implant Implanted:Qty: 1 on 10/20/2025 by Claudio Tafoya MD at [facility] Right: Shoulder [employer] 04/25/2028 [id number] / NONE / [id number] Procedures Procedure Name Priority Date/Time Associated Diagnosis Comments LIPID PANEL WITH REFLEX TO DIRECT LDL Routine 11/05/2025 8:45 AM EST Adult general medical examination Diabetic polyneuropathy associated with type 2 diabetes mellitus (CMS/HCC V24, CMS/HCC V28) Dyslipidemia HIV 1, 2 ANTIBODY, P24 ANTIGEN WITH REFLEX TO DIFFERENTIATION Routine 11/05/2025 8:45 AM EST Adult general medical examination Screen for STD (sexually transmitted disease) TREPONEMA PALLIDUM ANTIBODY WITH REFLEX TO RPR AND PARTICLE AGGLUTINATION Routine 11/05/2025 8:45 AM EST Adult general medical examination Screen for STD (sexually transmitted disease) HEPATITIS C ANTIBODY Routine 11/05/2025 8:45 AM EST Adult general medical examination Screen for STD (sexually transmitted disease) COMPREHENSIVE METABOLIC PANEL Routine 11/05/2025 8:45 AM EST Adult general medical examination Diabetic polyneuropathy associated with type 2 diabetes mellitus (CMS/HCC V24, CMS/HCC V28) CHLAMYDIA TRACHOMATIS AND NEISSERIA GONORRHOEAE PCR Routine 11/05/2025 8:45 AM EST Adult general medical examination Screen for STD (sexually transmitted disease) XR SHOULDER 2+ VIEWS RIGHT Routine 11/04/2025 10:45 AM EST S/P right rotator cuff repair Post-operative state POCT GLUCOSE BLOOD Routine 10/20/2025 11:36 AM EST TH AN ENDOTRACHEAL(NO CHARGE) Routine 10/20/2025 8:04 AM EST CA SURGICAL ARTHROSCOPY SHOULDER EXTENSIVE DEBRIDEMENT 3+ STRUCTURES 10/20/2025 7:35 AM EST Calcific tendonitis of right shoulder Case Notes MINI C-ARM, INTERSCALENE BLOCK, JUNIOR GRAPHIC DESIGNER Special Needs MINI FLUOROSCOPY08/13/25 Left VM for patient to call back to schedule surgery08/17/25 Left VM for patient to call back to schedule surgery 10/06 Time change emma/ Jessica via phone 10/07 JT CA ARTHROSCOPY SHOULDER DECOMPR SUBACROMIAL SPACE W/PART ACROMIOPLASTY 10/20/2025 7:35 AM EST Calcific tendonitis of right shoulder Case Notes MINI C-ARM, INTERSCALENE BLOCK, JUNIOR GRAPHIC DESIGNER Special Needs MINI FLUOROSCOPY08/13/25 Left VM for patient to call back to schedule surgery08/17/25 Left VM for patient to call back to schedule surgery 10/06 Time change emma/ Jessica via phone 10/07 JT CA ARTHROSCOPY SHOULDER SURGICAL WITH ROTATOR CUFF REPAIR 10/20/2025 7:35 AM EST Calcific tendonitis of right shoulder Case Notes MINI C-ARM, INTERSCALENE BLOCK, JUNIOR GRAPHIC DESIGNER Special Needs MINI FLUOROSCOPY08/13/25 Left VM for patient to call back to schedule surgery08/17/25 Left VM for patient to call back to schedule surgery 10/06 Time change emma/ Jessica via phone 10/07 JT CA ARTHROSCOPY SHOULDER SURGICAL WITH ROTATOR CUFF REPAIR 10/20/2025 7:35 AM EST Calcific tendonitis of right shoulder Case Notes MINI C-ARM, INTERSCALENE BLOCK, JUNIOR GRAPHIC DESIGNER Special Needs MINI FLUOROSCOPY08/13/25 Left VM for patient to call back to schedule surgery08/17/25 Left VM for patient to call back to schedule surgery 10/06 Time change emma/ Jessica via phone 10/07 JT TH AN NERVE BLOCK INTERSCALENE (NO CHARGE) Routine 10/20/2025 7:23 AM EST TH AN NERVE BLOCK INTERSCALENE (CHARGE) Routine 10/20/2025 7:23 AM EST POCT GLUCOSE BLOOD Routine 10/20/2025 6:52 AM EST ECG 12-LEAD Routine 10/05/2025 12:33 PM EST Preop cardiovascular exam HEMOGLOBIN A1C Routine 10/01/2025 10:48 AM EST Preop cardiovascular exam Diabetes mellitus due to underlying condition with hyperosmolarity without coma, without long-term current use of insulin ([facility] V24, [facility] V28) CBC WITH AUTO DIFFERENTIAL Routine 10/01/2025 10:48 AM EST Preop cardiovascular exam ACTIVATED PARTIAL THROMBOPLASTIN TIME Routine 10/01/2025 10:48 AM EST Preop cardiovascular exam PROTHROMBIN TIME WITH INR Routine 10/01/2025 10:48 AM EST Preop cardiovascular exam COMPREHENSIVE METABOLIC PANEL Routine 10/01/2025 10:48 AM EST Preop cardiovascular exam CBC AND DIFFERENTIAL Routine 10/01/2025 10:48 AM EST Preop cardiovascular exam MG MAMMO DIGITAL DIAGNOSTIC W ABEBE BILAT Routine 01/20/2025 1:09 PM EST BD BONE DENSITY DXA AXIAL SKELETON Routine 12/29/2024 8:38 AM EST Osteoporosis screening from Last 3 Months or Most Recently Relevant to Health Maintenance Results * Hepatitis C antibody (11/05/2025 8:45 AM EST) Hepatitis C Antibody Negative Negative 11/05/2025 1:29 PM EST [facility] Blood Venous blood specimen / Unknown Venipuncture / Unknown 11/05/2025 8:45 AM EST 11/05/2025 8:45 AM EST us Martha JOHNSON LAB BLOOD ORDERABLES Final Resul t [facility] [address] [place] [address], [place] [phone] * HIV 1,2 antibody, p24 antigen with reflex to differentiation (11/05/2025 8:45 AM EST) [facility] HIV Combo AB/AG Negative Negative 11/05/2025 1:22 [...] t [facility] [address] [place] [address], [place] [phone] * Treponema pallidum antibody with reflex to RPR and particle agglutination (11/05/2025 8:45 AM EST) [facility] T. Pallidum Antibodies Negative Negative 11/05/2025 1:13 PM EST [facility] Blood Venous blood specimen / Unknown Venipuncture / Unknown 11/05/2025 8:45 AM EST 11/05/2025 8:45 AM EST us Martha JOHNSON LAB BLOOD ORDERABLES Final Resul t [facility] [address] [place] [address], [place] [phone] * (ABNORMAL) Lipid panel with reflex to direct LDL (11/05/2025 8:45 AM EST) [facility] Cholesterol 169 0 - 200 mg/dL 11/05/2025 1:04 PM [facility] Triglycerides 154(H) 0 - 150 mg/dL 11/05/2025 1:04 PM [facility] HDL 39(L) >=40 mg/dL 11/05/2025 1:04 PM [facility] LDL Calculated 99 0 - 100 mg/dL 11/05/2025 1:04 PM [facility] Comment:Estimated LDL is liv culated using the Friedewald equation: Total cholesterol - HDL cholesterol - (Triglycerides/5) VLDL Cholesterol Liv 30.8 mg/dL 11/05/2025 1:04 PM [facility] Non HDL Chol. (LDL+VLDL) 130 <145 mg/dL 11/05/2025 1:04 PM [facility] Chol/HDL Ratio 4.3 0.0 - 4.4 11/05/2025 1:04 PM [facility] Blood Venous blood specimen / Unknown Venipuncture / Unknown 11/05/2025 8:45 AM EST 11/05/2025 8:45 AM EST Martha JOHNSON LAB BLOOD ORDERABLES Final Resul t [facility] [address] [place] [address], * Chlamydia trachomatis and Neisseria gonorrhoeae molecular study (11/05/2025 8:45 AM EST) Pathologist [facility] Neisseria gonorrhoeae PCR Negative Negative LAB MOLECULAR DIAGNOSTICS METHOD 11/05/2025 1:03 PM [facility] Chlamydia trachomatis PCR Negative Negative LAB MOLECULAR DIAGNOSTICS METHOD 11/05/2025 1:03 PM [facility] Urine First stream urine specimen / Unknown Non-blood Collection / Unknown 11/05/2025 8:45 AM EST 11/05/2025 8:45 AM EST us Martha JOHNSON LAB MICROBIOLOGY - GENERAL ORDER FAITH Final Result [facility] [address] [place] [address], [place] [phone] * (ABNORMAL) Comprehensive metabolic panel (11/05/2025 8:45 AM EST) Only the most recent of2 resultswithin the time period is included. Sodium 143 133 - 145 mmol/L 11/05/2025 1:04 PM [facility] Potassium 4.2 3.5 - 5.5 mmol/L 11/05/2025 1:04 PM [facility] Chloride 106 96 - 110 mmol/L 11/05/2025 1:04 PM [facility] CO2 27 21 - 32 mmol/L 11/05/2025 1:04 PM [facility] Anion Gap 10 3 - 11 11/05/2025 1:04 PM [facility] Glucose 137(H) 70 - 100 mg/dL 11/05/2025 1:04 PM [facility] BUN 20 5 - 25 mg/dL 11/05/2025 1:04 PM [facility] Creatinine 0.96 0.50 - 1.10 mg/dL 11/05/2025 1:04 PM [facility] eGFR 65 >=60 mL/min/1. 73m2 11/05/2025 1:04 PM [facility] Comment:Calculation based on the Chronic Kidney Disease Epidemiology Collaboration (CKD-EPI) equation refit without adjustment for race. BUN/Creatinine Ratio 20.8 11/05/2025 1:04 PM [facility] Calcium 8.8 8.5 - 10.5 mg/dL 11/05/2025 1:04 PM [facility] AST (SGOT) 53(H) 10 - 42 unit/L 11/05/2025 1:04 PM [facility] ALT (SGPT) 72(H) 10 - 60 unit/L 11/05/2025 1:04 PM [facility] Alkaline Phosphatase 112 42 - 121 unit/L 11/05/2025 1:04 PM [facility] Total Protein 7.7 6.0 - 8.0 g/dL 11/05/2025 1:04 PM [facility] Albumin 4.4 3.2 - 5.0 g/dL 11/05/2025 1:04 PM [facility] Total Bilirubin 0.3 0.0 - 1.4 mg/dL 11/05/2025 1:04 PM [facility] [facility] Blood Venous blood specimen / Unknown Venipuncture / Unknown 11/05/2025 8:45 AM EST 11/05/2025 8:45 AM EST Martha JOHNSON LAB BLOOD ORDERABLES Final Resul t [facility] [address] [place] [address], * XR Shoulder 2+ Views Right (11/04/2025 10:45 AM EST) Anatomical Region Laterality Modality Upper Extremities, Shoulder Right Comp uted Radiography Narrative 11/04/2025 12:48 PM EST Date of Visit: 11/04/2025 Reason for visit: Right shoulder pain Views: AP and Y-view right shoulder Comparison: 07/01/25 Findings: Humeral head appears smooth. Scapular Y view shows the glenohumeral joint located and centered Calcification adjacent to the greater tuberosity is noted but decreased in size from previous exam No fractures or dislocations noted Impression: Right shoulder: No acute osseous pathology Calcific tendonitis noted as above improved from prior exam Read by: Joi Hillman PA-C us Joi JOHNSON IMG XR PROCEDURES Final Resul t * (ABNORMAL) POCT Glucose, blood (10/20/2025 11:36 AM EST) Only the most recent of2 resultswithin the time period is included. Glucose POCT 190(H) 70 - 100 mg/dL 10/20/2025 11:38 AM EST [facility] Blood Capillary blood specimen / Unknown 10/20/2025 11:36 AM EST 10/20/2025 11:39 AM EST us Claudio Tafoya MD LAB POINT OF CARE TE ST DOCKED DEVICE UNSOLICITED RESULTS Final Result [facility] [address] [place] [address], [place] [phone] * TH AN ENDOTRACHEAL(NO CHARGE) (10/20/2025 8:04 AM EST) Narrative Jovi Jenkins SRNA - 10/20/2025 8:04 AM EST RAMYA Tee 10/20/2025 8:05 AM General Information and Staff Patient location during procedure: OR Anesthesiologist: Yeyo Osuna MD Resident/SENIOR CONTRACT SPECIALIST: Mora Valdes CRNA Other anesthesia staff: RAMYA Tee Performed by: RAMYA Tee Authorized by: Yeyo Osuna MD Intubation Airway not difficult Reason: elective Final Airway Details Successful airway: ETT Cuffed: yes Successful intubation technique: direct laryngoscopy Adjuncts used in placement: intubating stylet Endotracheal tube insertion site: oral Blade: Monica Blade size: #3 ETT size (mm): 7.0 Cormack-Lehane Classification: grade I - full view of glottis Placement verified by: chest auscultation and capnometry Cuff volume (mL): 8 Measured from: lips ETT to lips (cm): 21 Ventilation between attempts: none Final airway type: endotracheal airway Indications and Patient Condition Indications for airway management: anesthesia Sedation level: Yes Preoxygenated: yesSoft Tissue Damage: No Dentition Unchanged: Yes Patient position: sniffing MILS maintained throughout Mask difficulty assessment: 2 - vent by mask + OA or adjuvant +/- NMBA Start Time: 10/20/2025 7:43 AMStop Time: 10/20/2025 7:45 AM us Yeyo Osuna MD ANESTHESIA ORDERABLES Final R esult * TH AN NERVE BLOCK INTERSCALENE (CHARGE), TH AN NERVE BLOCK INTERSCALENE (NO CHARGE) (10/20/2025 7:23 AM EST) Yeyo Wick MD - 10/20/2025 7:23 AM EST Yeyo Osuna MD 10/20/2025 8:42 AM Peripheral Block Patient location during procedure: pre-op Start time: 10/20/2025 7:23 AM End time: 10/20/2025 7:33 AM Reason for block: at surgeon's request Staffing Performed: anesthesiologist and resident/SENIOR CONTRACT SPECIALIST/CAA Anesthesiologist: Yeyo Osuna MD Resident/SENIOR CONTRACT SPECIALIST: Mora Valdes CRNA Other anesthesia staff: RAMYA Tee Preanesthetic Checklist Completed: patient identified, IV checked, site marked, risks and benefits discussed, surgical consent, monitors and equipment checked, pre-op evaluation and timeout performed Peripheral Block Patient position: sitting Prep: ChloraPrep Patient monitoring: heart rate, monitor tech and continuous pulse ox Block type: interscalene Laterality: right Injection technique: single-shot Guidance: ultrasound guided Needle Needle type: short-bevel Needle gauge: 20 G Needle length: 4 cm. Needle localization: ultrasound guidance Medications Administered fentaNYL (SUBLIMAZE) injection 50 mcg/mL - intravenous 50 mcg - 10/20/2025 7:23:00 AM midazolam (VERSED) injection 1 mg/mL - intravenous 2 mg - 10/20/2025 7:23:00 AM ropivacaine (NAROPIN) injection 0.5 % - infiltration 30 mL - 10/20/2025 7:23:00 AM Assessment Injection assessment: negative aspiration for heme, local visualized surrounding nerve on ultrasound and no paresthesia on injection Heart rate change: no Additional Notes Timeout performed with bedside RN. Anesthesia and surgical consent on chart. Standard aseptic technique: hat, mask, sterile gloves, eye protection. Monitors: NIBP, SpO2, EKG Sedation with meaningful contact. Chloraprep to peripheral nerve block site. Ultrasound guidance throughout. Injectate: Ropivacaine 0.5% Volume: 30 mL Clonidine 100mcg mixed with local anesthetic. Bria-neural/fascial plane visualization of local anesthetic spread. Ultrasound image saved to chart. Block performed per surgeon request (ordered on chart). us Yeyo Osuna MD ANESTHESIA ORDERABLES Edited Result - Final * ECG 12 lead (10/05/2025 12:33 PM EST) us Kasandra Mehta MD ECG ORDERABLES Fi nal Result * (ABNORMAL) CBC auto differential (10/01/2025 10:48 AM EST) [facility] WBC 5.2 4.8 - 10.8 K/mcL LAB HEMETOLOGY METHOD 10/01/2025 12:10 PM [facility] RBC 5.20(H) 3.80 - 4.80 M/mcL LAB HEMETOLOGY METHOD 10/01/2025 12:10 PM [facility] Hemoglobin 14.6 11.5 - 16.0 g/dL LAB HEMETOLOGY METHOD 10/01/2025 12:10 PM [facility] Hematocrit 45.2 35.0 - 47.0 % LAB HEMETOLOGY METHOD 10/01/2025 12:10 PM [facility] MCV 87.4 79.0 - 98.0 FL LAB HEMETOLOGY METHOD 10/01/2025 12:10 PM [facility] MCH 28.2 27.0 - 32.0 pcg LAB HEMETOLOGY METHOD 10/01/2025 12:10 PM [facility] MCHC 32.3 32.0 - 37.0 g/dL LAB HEMETOLOGY METHOD 10/01/2025 12:10 PM [facility] RDW 15.6(H) 11.0 - 15.0 % LAB HEMETOLOGY METHOD 10/01/2025 12:10 PM [facility] Platelets 169 130 - 400 K/mcL LAB HEMETOLOGY METHOD 10/01/2025 12:10 PM [facility] MPV 9.7 7.0 - 11.0 FL LAB HEMETOLOGY METHOD 10/01/2025 12:10 PM [facility] NRBC 0.0 <1.0 % LAB HEMETOLOGY METHOD 10/01/2025 12:10 PM [facility] NRBC Absolute 0.00 <0.10 K/mcL LAB HEMETOLOGY METHOD 10/01/2025 12:10 PM [facility] Neutrophils Relative 51.6 % LAB HEMETOLOGY METHOD 10/01/2025 12:10 PM [facility] Lymphocytes Relative 38.7 % LAB HEMETOLOGY METHOD 10/01/2025 12:10 PM [facility] Monocytes Relative 5.7 % LAB HEMETOLOGY METHOD 10/01/2025 12:10 PM [facility] Eosinophils Relative 2.5 % LAB HEMETOLOGY METHOD 10/01/2025 12:10 PM [facility] Basophils Relative 1.1 % LAB HEMETOLOGY METHOD 10/01/2025 12:10 PM [facility] Immature Granulocytes Relative 0.4 % LAB HEMETOLOGY METHOD 10/01/2025 12:10 PM [facility] Neutrophils Absolute 2.70 1.50 - 7.00 K/mcL LAB HEMETOLOGY METHOD 10/01/2025 12:10 PM [facility] Lymphocytes Absolute 2.03 1.00 - 5.00 K/mcL LAB HEMETOLOGY METHOD 10/01/2025 12:10 PM [facility] Monocytes Absolute 0.30 0.20 - 1.00 K/mcL LAB HEMETOLOGY METHOD 10/01/2025 12:10 PM EST [facility] Eosinophils Absolute 0.13 0.00 - 0.50 K/[facility] LAB HEMETOLOGY METHOD 10/01/2025 12:10 PM EST [facility] Basophils Absolute 0.06 0.00 - 0.20 K/[facility] LAB HEMETOLOGY METHOD 10/01/2025 12:10 PM EST [facility] Immature Granulocytes Absolute 0.02 0.00 - 0.03 K/[facility] LAB HEMETOLOGY METHOD 10/01/2025 12:10 PM EST [facility] Blood Venous blood specimen / Unknown Venipuncture / Unknown 10/01/2025 10:48 AM EST 10/01/2025 10:49 AM EST Kasandra Mehta MD LAB BLOOD ORDERABL ES Final Result [facility] [address] [place] [address], [place] [phone] * (ABNORMAL) Activated partial thromboplastin time (10/01/2025 10:48 AM EST) aPTT 40.1(H) 24.1 - 39.3 sec LAB COAGULATION METHOD 10/01/2025 12:29 PM EST [facility] Blood Venous blood specimen / Unknown Venipuncture / Unknown 10/01/2025 10:48 AM EST 10/01/2025 10:49 AM EST Kasandra Mehta MD LAB BLOOD ORDERABL ES Final Result [facility] [address] [place] [address], [place] [phone] * Prothrombin time with INR (10/01/2025 10:48 AM EST) Protime 12.9 10.6 - 13.9 sec LAB COAGULATION METHOD 10/01/2025 12:29 PM EST [facility] INR 1.0 LAB COAGULATION METHOD 10/01/2025 12:29 PM EST [facility] Blood Venous blood specimen / Unknown Venipuncture / Unknown 10/01/2025 10:48 AM EST 10/01/2025 10:49 AM EST Kasandra Mehta MD LAB BLOOD ORDERABL ES Final Result Performing Organization Address [facility]/ZIP Co de Phone Number [facility] [address] [place] [address], [place] [phone] * (ABNORMAL) Hemoglobin A1c (10/01/2025 10:48 AM EST) Hemoglobin A1C 7.1(H) <6.5 % LAB CHEMISTRY METHOD 10/01/2025 10:36 PM EST [facility] Mean Bld Glu Estim. 157 mg/dL LAB CHEMISTRY METHOD 10/01/2025 10:36 PM EST [facility] Blood Venous blood specimen / Unknown Venipuncture / Unknown 10/01/2025 10:48 AM EST 10/01/2025 4:24 PM EST Kasandra Mehta MD LAB BLOOD ORDERABL ES Final Result Performing Organization Address City/[facility]/ZIP Co de Phone Number [facility] [address] [place] [address], [place] [phone] * MG Mammo Digital Diagnostic w Abebe [...] (World Health Organization Fracture Risk Assessment) [facility] Department of Internal Medicine recommends [...] alternative screening schedule based on lucy Islas., [facility] December 14, 2011 for patients with [...] Signed Date: 12/29/2024 10:36 ET Workstation ID: [id number] Transcribed By: Self Edit Transcribed Date: 12/29/2024 [...] (World Health Organization Fracture Risk Assessment) [facility] Department of Internal Medicine recommendsusing [...] screening schedule based on brent Islas al., [facility] 2011 for patients with osteopenia (based on [...] Signed Date: 12/29/2024 10:36 ET Workstation ID: [id number] Transcribed By: Self Edit Transcribed Date: 12/29/2024 10:33 ET Kasandra Mehta MD IMG DXA PROCEDURES Final Result from Last 3 Months or Most Recently Relevant to Health Maintenance Additional Health Concerns Active Problems Noted Date Diagnosed Date Autogenerated Problem 10/21/[address] [place] [phone] [facility]LY [facility] INTERMEDIATE OPTIONS Member Subscriber Plan / Payer (Ef fective 2022-Present) Name:Emma Prater Relation to Subscriber:Self Name:Emma Prater Payer ID:[id number] Group ID:[id number] Type:Not on file Address: [place] [address] [address] [phone] Advance Directives * Full Code - Default (Latest Code Status on File) Date Activated Date Inactivated Comments 10/20/2025 6:57 AM 10/20/2025 4:58 PM This is or carmelo is used when code status has not been discussed with the patient, or code status is otherwise unknown/unconfirmed To update the patient's code status, place a code status order. Do not modify or discontinue any currently active code status orders. Care Teams Exhaust Equipment Operator Relationship Specialty Start Date End Date Kasandra Mehta MD [address] [place] [phone] PCP - General 01/23/24
--- OUTSIDE RECORDS SUMMARY | 2025-11-10 09:57 | XMS_ITS | Encounter Summary ---
Author Organization [facility] Address [address] [place] [address] Care Team Providers Care Histology Specialist Name Role Phone Kasandra Mehta MD Primary Care Prov ider Encounter Details Date Type Department Care Team ([facility] st Contact Info) Description 11/05/2025 Results Follow-Up Adult Medicine [facility] [address] [place], [place] [phone] Martha Mcneil PA [address] [place], [place] Social History Tobacco Use Types Packs/Day Years [...] for your loved ones. For example, child adolescent care or elderly care for an older adult? [...] Info) Description 11/12/2025 8:30 AM EST Treatment [facility] [address] [phone] Anna Khan, PT 11/23/2025 8:30 AM EST Treatment [facility] [address] [place] [address] Anna Khan, PT 11/25/2025 8:30 AM EST Treatment [facility] [address] [facility] [address] [phone] Kurt Alford, JOURNEY LINEMAN 12/01/2025 8:30 AM EST Treatment [facility] [address] [phone] Anna Khan, PT 12/03/2025 8:30 AM EST Treatment [facility] [address] [phone] Anna Khan, PT 12/07/2025 8:50 AM EST Consult Gastroenterology - [address] [facility] [address] [place] [address] Eladia Ding PA [address] [facility] [address] [place] [address] 12/08/2025 8:30 AM EST Treatment [facility] [address] [phone] Anna Khan, PT 12/10/2025 10:00 AM EST Treatment [facility] [address] [facility] [address] [phone] Kurt Alford, JOURNEY LINEMAN 12/14/2025 8:30 AM EST Treatment [facility] [address] [facility] [address] [phone] Kurt Alford, JOURNEY LINEMAN 2025 8:30 AM EST Treatment [facility] [address] [phone] Anna Khan, PT 01/15/2026 8:00 AM EST Office Visit Orthopedic Surgery - [place] [address] [facility] [address] [place] [phone] Joi Hillman PA [address] [address] 05/06/2026 8:00 AM EDT Office Visit Adult Medicine [address] [phone] Kasandra Mehta MD [address] [place] [address] documented as of this encounter Goals Goal Patient Goal Type Associated Problems Recent Progress Patient-Stated? Author PT STG x 8 visits from [facility] 02/26/2025 General Yes Milton Cuellar PT Note: [] Pt will increase appleys scratch test IR to mid L spine, [] Pt will increase right shoulder abd active ROM to 115 degrees, [] Pt will increase right shoulder flexion active ROM to 140 degrees, [] Pt will decrease waking frequency to 1 a night due to pain PT LTG x 14 visits from [facility] 02/26/2025 General No Milton Cuellar, PT [...] Tafoya MD documented as of this encounter Visit Diagnoses Not on filedocumented in this encounter Additional Health Concerns Active Problems Noted Date Diagnosed Date Autogenerated Problem 10/21/2025 Assessment Noted Time PHQ-9 Depression Total Score: 12 025 7:54 AM EST documented as of this encounter Care Teams Histology Specialist Relationship Specialty Start Date End Date Kasandra Mehta MD [address] [place] [address] PCP - General 01/23/24 documented as of this encounter
--- OUTSIDE RECORDS SUMMARY | 2025-11-10 09:57 | XMS_ITS | Encounter Summary ---
Author Organization [facility] Address [address] [place] [address] Care Team Providers Care Readers' Advisory Service Librarian Name Role Phone Kasandra Mehta MD Primary Care Prov ider Encounter Details Date Type Department Care Team ([facility] st Contact Info) Description 10/02/2025 Results Follow-Up Adult Medicine [facility] [address] [place], [place] [phone] Kia Leone PA [address] [place], [place] Social History Tobacco Use Types Packs/Day [...] your loved ones. For example, child and adolescent psychologist or elderly care for an older adult? [...] Info) Description 11/12/2025 8:30 AM EST Treatment [facility] [address] [phone] Anna Khan, PT 11/23/2025 8:30 AM EST Treatment [facility] [address] [phone] Anna Khan, PT 11/25/2025 8:30 AM EST Treatment [facility]patient [facility] [address] [place] [address] [place] [phone] Kurt Alford, ASSOCIATE DIRECTOR OF NURSING 12/01/2025 8:30 AM EST Treatment [facility] [address] [facility] [address] [phone] Anna Khan, PT 12/03/2025 8:30 AM EST Treatment [facility] [address] [facility] [address] [phone] Anna Khan, PT 12/07/2025 8:50 AM EST Consult Gastroenterology - [address] [facility] [address] [place] [address] Eladia Ding PA [address] [facility] [address] [place] [address] 12/08/2025 8:30 AM EST Treatment [facility] [address] [phone] Anna Khan, PT 12/10/2025 10:00 AM EST Treatment [facility] [address] [phone] Kurt Alofrd, ASSOCIATE DIRECTOR OF NURSING 12/14/2025 8:30 AM EST Treatment [facility] [address] [phone] Kurt Alford, ASSOCIATE DIRECTOR OF NURSING 2025 8:30 AM EST Treatment [facility] [address] [facility] [address] [phone] Anna Khan, PT 01/15/2026 8:00 AM EST Office Visit Orthopedic Surgery - [place] [address] [facility] [address] [place] [address] Joi Hillman PA [address] [facility] [address] [facility] [address] [place] [address] 05/06/2026 8:00 AM EDT Office Visit Adult Medicine [facility] [address] [place] [address] Kasandra Mehta MD [address] [place] [address] documented as of this encounter Goals Goal Patient Goal Type Associated Problems Recent Progress Patient-Stated? Author PT STG x 8 visits from [facility] 02/26/2025 General Yes Milton Cuellar PT Note: [] Pt will increase appleys scratch test IR to mid L spine, [] Pt will increase right shoulder abd active ROM to 115 degrees, [] Pt will increase right shoulder flexion active ROM to 140 degrees, [] Pt will decrease waking frequency to 1 a night due to pain PT LTG x 14 visits from [facility] 02/26/2025 General No Milton Cuellar PT Note: [...] Noted Date Diagnosed Date Autogenerated Problem 10/21/2025 documented as of this encounter Care Teams Readers' Advisory Service Librarian Relationship Specialty Start Date End Date Kasandra Mehta MD [address] [place] [address] PCP - General 01/23/24 documented as of this encounter
== END 2025-11-10 09:40 | disposition home or self-care (01) ==
LOC: HO.ENCR 08:57
PROVIDERS: PCP Internal Medicine; Visit Provider Physician Assistant Medical
DX: Z13.9 Encounter for screening, unspecified (principal); E11.8 Type 2 diabetes mellitus with unspecified complications; Z79.4 Long term (current) use of insulin; E11.9 Type 2 diabetes mellitus without complications; K76.0 Fatty (change of) liver, not elsewhere classified; E66.3 Overweight

== ENCOUNTER → 2025-11-10 08:56 | Outpatient (BNVA) | payer OTHER, SELFPAY | PROVIDERS: PCP Internal Medicine; Visit Provider Physician Assistant Medical | DX: E11.8 Type 2 diabetes mellitus with unspecified complications (principal); K76.0 Fatty (change of) liver, not elsewhere classified; E66.3 Overweight; Z79.84 Long term (current) use of oral hypoglycemic drugs; Z79.4 Long term (current) use of insulin; Z68.29 Body mass index [BMI] 29.0-29.9, adult | CPT/HCPCS: 82947; 83036; 99212 ==

== ENCOUNTER 2025-11-24 08:55 | Outpatient (AMB) | payer OTHER, SELFPAY ==
--- OUTSIDE RECORDS SUMMARY | 2025-11-23 08:30 | XMS_ITS | Encounter Summary ---
Author Organization [facility] Address [address] [place] [address] Care Team Providers Care Wad Printing Machine Operator Name Role Phone Kasandra Mehta MD Primary Care Prov ider Reason for Visit * Consultation (Urgent) - Authorized Specialty Diagnoses / Procedures Referred By Charles reyes Referred To Contact Physical Therapy Diagnoses Calcific tendonitis of right shoulder Claudio Tafoya MD [address] [place] [phone] Phone: tel: fax: [address] [phone] Phone: tel: fax: Referral ID Status Reason Start Date Expiration Date Visits Requested Visits Authorized [id number] Authorized Specialty Services Required 07/24/2025 07/24/2026 20 20 Encounter Details Date Type Department Care Team (Late st Contact Info) Description 11/23/2025 8:30 AM EST Treatment [facility] [address] [phone] Anna Khan PT Orthopedic aftercare [...] care for your loved ones. For example, early childhood aide classroom or elderly care for an older adult? [...] Progress Notes * Anna Khan PT - 11/23/2025 8:[address] [facility] - Outpatient PHYSICAL THERAPY DAILY TREATMENT NOTE - OP Date: 11/23/2025 Visit Number: [id number] Patient Name: Emma Prater : 1955 Age: 69 y.o. Gender: female Diagnosis: ICD-10-CM ICD-9-CM 1. Orthopedic aftercare Z47.89 V54.9 Date of Onset/Surgery: 10/20/2025 Referring Provider: Claudio Tafoya MD Insurance: Payor: [facility] [employer] / Plan: [facility] [employer] / Product Type: *No Product type* / Patient Identified by: Anna Khan PT Language: Syrian. [id number] Medications: Medications Ordered Prior to Encounter[1] Allergies: has no known allergies. Precautions: S/p RCR repair FORCE protocol Fall risk: No SUBJECTIVE Subjective Report: pt noting no new concerns Chart Reviewed: Yes Pain: Pre:10 Post: 3-03/05 TREATMENT INTERVENTION: Reviewed FORCE protocol Pendulums completed A/P and circular. Supine AAROM into ER using dowel. Cues for technique Supine passive shoulder flexion with good arm assisting. Cues for slowing down Standing AAROM into abduction and scaption. Cues for technique/ Ice x10 post. No charge ASSESSMENT/Response to Treatment Good Pt tolerated session well. PT provided education throughout regarding current stage of FORCE protocol. Patient Education: Education provided: HEP Education Provided To: Patient utilizing Explanation, Demonstration, and Printed Material mode(s) of education Response to Education: Applied Knowledge, Verbal Understanding, and Demonstrated Skills PLAN POC Development/Review: No Change in the Plan of Care; Participants: Patient Interventions Time Entry: Modalities: Therapeutic procedures: Therapeutic Exercise Time Entry: 23 Total Treatment Time: 23 Documentation completed by Anna Khan PT [1] Current Outpatient Medications on File Prior to Visit Medication Sig Dispense Refill [] acetaminophen (TYLENOL) 500 mg tablet Take 2 tablets (1,000 mg total) by mouth every 8 (eight) hours. 180 each 0 albuterol 0.63 mg/3 mL nebulizer solution 3 mL (0.63 mg total) every 6 (six) hours if needed. atorvastatin (LIPITOR) 10 mg tablet Take 1 tablet (10 mg total) by mouth at bedtime. 90 each 0 [] celecoxib (CeleBREX) 200 mg capsule Take 1 [...] (15 mg total) by mouth at bedtime. tirzepatide (MOUNJARO) 7.5 mg/0.5 mL injection Inject 0.5 mL (7.5 mg total) under the skin every 7 (seven) days. No current facility-administered medications on file prior to visit. documented in this encounter Plan of Treatment Upcoming Encounters Date Type Department Care Team (Late st Contact Info) Description 11/25/2025 8:30 AM EST Treatment [address] [phone] Kurt Alford PTA 12/01/2025 8:30 AM EST Treatment [address] [phone] Anna Khan, PT 12/03/2025 8:30 AM EST Treatment [facility] Outpatient [facility] [address] [phone] Anna Khan, PT 12/07/2025 8:50 AM EST Consult Gastroenterology - [address] [phone] Eladia Ding PA 299 [facility] [address] [place] [address] 12/08/2025 8:30 AM EST Treatment [facility] [address] [phone] Anna Khan, PT 12/10/2025 10:00 AM EST Treatment [facility] [address] [phone] Kurt Alford, EXTENDED INSURANCE CLERK 12/14/2025 8:30 AM EST Treatment [facility] Outpatient [facility] [address] [phone] Kurt Alford, EXTENDED INSURANCE CLERK 2025 8:30 AM EST Treatment [facility] [address] [phone] Anna Khan, PT 01/15/2026 8:00 AM EST Office Visit Orthopedic Surgery [facility] 160 175 [facility] [address] [place] [address] Joi Hillman PA [address] [address] 05/06/2026 8:00 AM EDT Office Visit Adult Medicine [address] [phone] Kasandra Mehta MD [address] [place] [address] documented as of this encounter Goals Goal Patient Goal Type Associated Problems Recent Progress Patient-Stated? Author PT STG x 8 visits from [facility] 02/26/2025 General Yes Milton Cuellar PT Note: [] Pt will increase appleys scratch test IR to mid L spine, [] Pt will increase right shoulder abd active ROM to 115 degrees, [] Pt will increase right shoulder flexion active ROM to 140 degrees, [] Pt will decrease waking frequency to 1 a night due to pain PT LTG x 14 visits from [facility] 02/26/2025 General No Milton Cuellar PT Note: [...] documented in this encounter Additional Health Concerns Assessment Noted Time PHQ-9 Depression Total Score: 12 025 7:54 AM EST documented as of this encounter Care Teams Wad Printing Machine Operator Relationship Specialty Start Date End Date Kasandra Mehta MD [address] [place] [phone] PCP - General 01/23/24 documented as of this encounter
--- NOTE | 2025-11-24 09:39 | MHC.AMDMED ---
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 Name: Francisco [id number] Accompanied by: Self / Same As Patient Allergies No Known Allergies Allergy (Verified 11/10/25 09:05) HPI Comprehensive Diabetes Asmnt Most Recent Diabetes Results: Microalb/Creat Ratio, (<30) 12.3 ug/mg cr 08/19/24 Cholesterol, (<200) 189 mg/dL 08/19/24 HDL Cholesterol, (>40) 38 mg/dL L 08/19/24 Triglycerides, (<150) 233 mg/dL H 08/19/24 Creatinine, (0.5-1.4) 0.80 mg/dL 11/17/24 BUN, (9-16) 15 mg/dL 11/17/24 Sodium, (135-145) 142 mmol/L 11/17/24 Potassium, (3.3-5.1) 4.2 mmol/L 11/17/24 Chloride, (96-108) 107 mmol/L 11/17/24 Carbon Dioxide, (22-29) 27 mmol/L 11/17/24 Calcium, (8.4-10.2) 9.4 mg/dL Δ 11/17/24 AST, (5-31) 42 U/L H 11/17/24 ALT, (0-31) 72 U/L H 11/17/24 Total Protein, (6.5-8.0) 8.3 g/dL H 11/17/24 Albumin, (3.5-5.0) 4.3 g/dL 11/17/24 [facility] Medical History (Updated 09/22/25 @ 09:35 by ELIZABETH Jackson) Overweight Controlled type 2 diabetes mellitus Fatty liver Fibroids PMB (postmenopausal bleeding) Osteopenia Dyslipidemia Diabetic polyneuropathy associated with type 2 diabetes mellitus Diabetes type 2, uncontrolled Diabetes 1.5, managed as type 1 Panic anxiety syndrome Hospital discharge follow-up Vitamin D deficiency Carpal tunnel syndrome Incontinence Hemorrhoids Tubal occlusion Insomnia Elevated cholesterol Depression Hypertension IDDM (insulin dependent diabetes mellitus) Surgical History (Updated 11/10/25 @ 09:08 by JACOBO Jordan) History of shoulder surgery Hx of cataract surgery History of neck surgery History of surgery History of colonoscopy History of hemorrhoidectomy History of carpal tunnel release History of bladder surgery S/P sinus surgery Hx of breast reduction, elective Hx of appendectomy H/O tubal ligation History of heart artery stent Family History Father No problems noted. Mother Heart disease Lung cancer Brother Liver cancer Brother Renal cancer HTN (hypertension) Diabetes mellitus Maternal Grandfather No problems noted. Maternal Grandmother No problems noted. Paternal Grandfather No problems noted. Paternal Grandmother No problems noted. Maternal Uncle Diabetes mellitus Paternal Uncle Diabetes mellitus Son No problems noted. Daughter No problems noted. Family/Other History of breast cancer Social History Housing: House Alcohol intake: current Alcohol intake frequency: holidays/special occasions only Patient Tobacco Use Status: Former Tobacco user e-Cigarette/Vaping Use: Never Used service: No Current occupational status: disabled Current occupation: right hand dominant Sexual orientation: Straight/Heterosexual Gender identity: Female Cognitive needs: No Hearing needs: No Vision needs: Yes Female Reproductive History Menstrual Age of Menarche: 14 Assessment & Plan Assessment & Plan (1) Diabetic polyneuropathy associated with type 2 diabetes mellitus: Code(s): E11.42 - Type 2 diabetes mellitus with diabetic polyneuropathy Plan: Personal Continuous Glucose Monitor: Patients CGM information reviewed, Pt uses [email or web address] Lisa 3+ Patient's last A1c on 11/10/2025 7% Patient has started Mounjaro 10 mg on 11/21/2025 Denies episodes of hypoglycemia Patient reports taking Lantus 14 units daily NovoLog 6-8 units prior to meal At today's visit we discussed action of Lantus, and NovoLog Reviewed with patient the importance of treating episodes of hypoglycemia, with 15 g of fast acting carbohydrate. When increasing doses of diabetes medications it increases the risk of hypoglycemia. Report if episodes of hypoglycemia increase in what time of day episodes are happening. Patient expressed frustration, related to exercise and weight loss. Encourage patient to discuss weight loss strategies with upcoming appointment with registered dietitian on 11/30/2024 Patient able to insert sensor independently at home without issue.? Portions of this note were created using voice recognition software, please excuse any words or phrases that may have been misinterpreted. Patient instruction: CGM provides information on blood glucose control throughout the day, including hyperglycemia and hypoglycemia. ? Continue to monitor blood glucose as instructed. Follow nutrition guidelines provided. Report any discomfort promptly to health care provider. ?Stay well-hydrated. You can bathe ,shower, swim and exerce while wearing the glucose sensor. Do not submerge glucose sensor in water for more than 30 minutes. Remove sensor for MRI or CAT scan. Avoid Xray machine in airports - remove sensor or request wand Instrucciones para el paciente: CGM proporciona informaci?n sobre el control de la glucosa en luis a lo jorge luis del d?a, incluidas la hiperglucemia y la hipoglucemia. Contin?e controlando la glucosa en luis seg?n las instrucciones. Siga las pautas de nutrici?n proporcionadas. Informe cualquier molestia de inmediato al proveedor de atenci?n m?dica. Mantente wanda hidratado. Puede ba?arse, ducharse, nadar y hacer ejercicio mientras usa el sensor de glucosa. No sumerja el sensor de glucosa en agua fani m?s de 30 minutos. Retire el sensor para papi resonancia magn?miller o papi tomograf?a computarizada. Evite la m?quina de letitia X en los aeropuertos: retire el sensor o solicite la varita Coding Level of Care Code G0108 Diab Man Trn Indiv 30min Diagnoses Diabetic polyneuropathy associated with type 2 diabetes mellitus E11.42
--- OUTSIDE RECORDS SUMMARY | 2025-11-24 10:57 | XMS_ITS | Patient Health Record ---
Author Organization [facility] Address [address] [place] [address] Care Team Providers Care Brick Baker Name Role Phone Tomy HUNTER, Asma Primary Care Provider Octavio Green [phone] Reason For Referral No Information Social History Social History Additional Details Category Social Info Options Details Miscellaneous: Marital status: single Plan Of Treatment No Information Insurance Providers Payer Name Payer Address Payer Phone Subscriber Number Group Number Insured Name Patient Relationship to Insured Coverage Start Date Coverage End Date [facility] [address] [address] [place], [place] [id number] CARLO CHRISTENSEN Self - patient is the insured Medical (General) History Medical History History ICD Code colonoscoy done elsewhere in 2008 diabetes mellitus coronary atery disease Surgical History Surgery Date(Month/Year) hemorrhoid and fissure surgery breast reduction appendectomy
--- OUTSIDE RECORDS SUMMARY | 2025-11-24 10:58 | XMS_ITS | Clinical Summary ---
Author Organization 175 [facility] Address [address] [place] [address] Phone Care Team Providers Care Acid Loader Name Role Phone Kasandra Mehta MD Primary [...] within 15 minutes of a meal Active tirzepatide (MOUNJARO) 7.5 mg/0.5 mL injectionIndic [...] 7 (seven) days. Last dose 10/06/14 Discontinued aspirin 325 mg EC tablet Take 1 tablet (325 mg total) by mouth 1 (one) time each day for 21 days. To prevent Blood Clots; Take daily for 3 weeks 21 each 10/20/20 celecoxib (CeleBREX) 200 mg capsule Take 1 capsule (200 mg total) by mouth 2 (two) times a day. 60 capsule 10/20/20 oxyCODONE (ROXICODONE) 5 mg immediate release tabletIndicati [...] medication; Or loose stools 20 each 10/20/20 Discontinued(Th erapy completed) acetaminophen (TYLENOL) 500 mg tablet Take 2 tablets (1,000 mg total) by mouth every 8 (eight) hours. 180 each 10/20/20 carbamide peroxide (DEBROX) 6.5 % otic solution Administer 5-10 drops into the right ear 2 (two) times a day for 4 days. 15 mL 11/05/20 Active Problems Problem Noted Date Diagnosed Date Anxiety 11/05/2025 Atherosclerotic cardiovascular disease Overview (11/05/2025): [facility] Back pain, chronic 11/05/2025 Fibromyalgia 11/05/2025 Pain, [...] Patient had some blood tests with her advertising clerk. A1c: 7.4 Assessment & Plan (11/27/2024 11:44 AM EST): poor control of diabetes. Patient will continue with yearly Podiatric and Ophthomologic evaluations.Will consider Angiotensin Converting Enzyme Inhibitor for renal protection. Continue Ozempic, lispro, glargine, Jardiance, and metformin. Encouraged to keep the appointments with the specialist. Patient had some blood tests with her advertising clerk. A1c: 7.4 De Quervain's tenosynovitis 07/25/2024 [...] Encounters Date Type Department Care Team Description 11/23/2025 8:30 AM EST Treatment [facility] [address] [phone] Anna Khan, MELANY Orthopedic aftercare (Primary Dx) 11/18/2025 8:30 AM EST Treatment [facility] [address] [phone] Khan, Morgan J, [employer] Orthopedic aftercare (Primary Dx) 11/12/2025 8:30 AM EST Treatment [facility] [address] [phone] Anna Khan, MELANY Orthopedic aftercare (Primary Dx) 11/09/2025 9:00 AM EST Evaluation [facility] [address] [phone] Anna Khan PT Orthopedic aftercare (Primary Dx) 11/05/2025 8:35 AM EST Lab Draw Station [address] Adult general medical examination; Diabetic polyneuropathy associated with type 2 diabetes mellitus (CMS/HCC V24, CMS/HCC V28); Screen for STD (sexually transmitted disease); Dyslipidemia 11/05/2025 8:00 AM EST Office Visit Adult Medicine [address] [phone] Martha Mcneil PA Adult general medical examination (Primary Dx); Encounter for screening mammogram for malignant neoplasm of breast; Screen for STD (sexually transmitted disease); Diabetic polyneuropathy associated with type 2 diabetes mellitus (CMS/HCC V24, CMS/HCC V28); S/P right rotator cuff repair; Essential hypertension; Dyslipidemia; Anxiety; Moderate episode of recurrent major depressive disorder (CMS/HCC V24, CMS/HCC V28); Impacted cerumen of right ear; Screening for depression; Encounter for screening involving social determinants of health (SDoH) 11/05/2025 Results Follow-Up Adult Medicine [address] [phone] Martha Mcneil PA 11/04/2025 11:00 AM EST Office Visit Orthopedic Surgery [facility] 160 175 [facility] 160 [place] [phone] Joi Hillman PA S/P right rotator cuff repair (Primary Dx); Post-operative state; Calcific tendonitis of right shoulder 10/30/2025 Telephone Adult Medicine [address] [phone] Kasandra Xie MD 10/20/2025 7:36 AM EST Anesthesia Event [facility] OR [address] [place] [phone] Yeyo Osuna MD 10/20/2025 7:30 AM EST - 10/20/2025 10:00 AM EST Surgery [facility] OR [address] [place] [phone] Claudio Tafoya MD RIGHT SHOULDER ARTHROSCOPY,SUBACROMIA L DECOMPRESSION,REMOVAL CALCIFIC TENDONITITS, REPAIR ROTATOR CUFF [74781 (CPT )] 10/20/2025 5:33 AM EST - 10/20/2025 1:50 PM EST Hospital Encounter [facility] OR [address] [place] [phone] Claudio Tafoya MD Calcific tendonitis of right shoulder (Primary Dx) Discharge Disposition: Home or Self Care 10/09/2025 Telephone Orthopedic Surgery [place] [phone] [phone] Jessica June [place] 10/08/2025 Telephone Orthopedic Surgery [place] [address] [phone] Jessica June [place] 10/02/2025 Results Follow-Up Adult [address] [phone] Kia Leone PA 10/01/2025 10:45 AM EST Lab Draw [address] Preop cardiovascular exam; Diabetes mellitus due to underlying condition with hyperosmolarity without coma, without long-term current use of insulin (CMS/[facility] V24, CMS/HCC V28) 10/01/2025 10:00 AM EST Consult Adult Medicine [address] [phone] Kasandra Xie MD Preop cardiovascular exam (Primary Dx); Calcific tendonitis of right shoulder; Diabetes mellitus due to underlying condition with hyperosmolarity without coma, without long-term current use of insulin ([facility] V24, [facility] V28) 09/28/2025 Telephone Adult Medicine [address] [phone] Kasandra Xie MD 09/23/2025 Telephone Adult Medicine [address] [phone] Kasandra Xie MD 09/11/2025 Telephone Adult [address] [phone] Kasandra Xie MD from Last 3 Months Immunizations Immunization Administration [...] finger release OTHER SURGICAL HISTORY 01/16/2023 PROCEDURE: WI ARTHRD ANT INTERDY CERVCL BELW C2 EA [...] History Medical History Date Comments Diabetes mellitus ([facility] V24, [facility] V28) DX:Diabetes mellitus (HCC) Depression DX:Depression Anxiety [...] your loved ones. For example, child adolescent psychiatrist or elderly care for an older adult? [...] Info) Description 11/25/2025 8:30 AM EST Treatment [facility] [address] [phone] Kurt Alford, [employer] 12/01/2025 8:30 AM EST Treatment [facility] [address] [phone] Anna Khan, PT 12/03/2025 8:30 AM EST Treatment [facility] [address] [phone] Anna Khan, PT 12/07/2025 8:50 AM EST Consult Gastroenterology - [address] [facility] [address] [place] [phone] Eladia Brar PA 299 [facility] [address] [place] [address] 12/08/2025 8:30 AM EST Treatment [facility] [address] [phone] Anna Khan, PT 12/10/2025 10:00 AM EST Treatment [facility] [address] [phone] Kurt Alford, [employer] 12/14/2025 8:30 AM EST Treatment [facility] [address] [phone] Kurt Alford, [employer] 2025 8:30 AM EST Treatment [facility] [address] [phone] Anna Khan, PT 01/15/2026 8:00 AM EST Office Visit Orthopedic Surgery [facility] 160 175 [facility] 160 [place] [phone] Joi Hillman PA 175 [facility] [address] [place] [address] 05/06/2026 8:00 AM EDT Office Visit Adult Medicine [address] [phone] Kasandra Mehta MD [address] [place] [address] Health Maintenance Due Date Last Done Comments [...] Author PT STG x 8 visits from [facility] 02/26/2025 General Yes Milton Cuellar PT Note: [] Pt will increase appleys scratch test IR to mid L spine, [] Pt will increase right shoulder abd active ROM to 115 degrees, [] Pt will increase right shoulder flexion active ROM to 140 degrees, [] Pt will decrease waking frequency to 1 a night due to pain PT LTG x 14 visits from [facility] 02/26/2025 General No Milton Cuellar PT Note: [] Pt will be able to reach back seat with right shoulder, [] Pt will wake < 2/wk due to shoulder pain, [] Pt will be able to reach top shelving with right UE in order to place/remove dishes or groceries [] Pt will be able to cook/prep meals without restrictions due to R shoulder pain Medical Devices Implanted Type Area Photograph Enlarger Device Identifier Shelf Expiration Date Model / Serial / Lot Anchors Tendon 8 - Snone - [id number] Implanted:Qty: 1 on 10/20/2025 by Claudio Tafoya MD at [facility] Arthroscopy Implants Sports Med Right: Shoulder [employer] - ENDOSCOPY 05/04/2028 [id number] / NONE / [id number] [facility] Bone Arthro Del Sys Advncd - Snone - [id number] Implanted:Qty: 1 on 10/20/2025 by Claudio Tafoya MD at [facility] Arthroscopy Implants Sports Med Right: Shoulder [employer] - ENDOSCOPY 04/28/2028 [id number] / NONE / [id number] [facility] Sut 5.5mm Healicoil Regenesorb 3 Sutures - Snone - [id number] Implanted:Qty: 1 on 10/20/2025 by Claudio Tafoya MD at [facility] Arthroscopy Implants Sports Med Right: Shoulder [employer] - ENDOSCOPY 05/07/2028 [id number] / NONE / [id number] Bioinductive Implant Implanted:Qty: 1 on 10/20/2025 by Claudio Tafoya MD at [facility] Right: Shoulder [employer] 04/25/2028 [id number] / NONE / [id number] Procedures Procedure Name Priority Date/Time Associated Diagnosis Comments LIPID PANEL WITH REFLEX TO DIRECT LDL Routine 11/05/2025 8:45 AM EST Adult general medical examination Diabetic polyneuropathy associated with type 2 diabetes mellitus ([facility]/HCC V24, CMS/HCC V28) Dyslipidemia HIV 1, 2 [...] polyneuropathy associated with type 2 diabetes mellitus ([facility] V24, CMS/[facility] V28) CHLAMYDIA TRACHOMATIS AND NEISSERIA GONORRHOEAE PCR Routine 11/05/2025 8:45 AM EST Adult general medical examination Screen for STD (sexually transmitted disease) XR SHOULDER 2+ VIEWS RIGHT Routine 11/04/2025 10:45 AM EST S/P right rotator cuff repair Post-operative state POCT GLUCOSE BLOOD Routine 10/20/2025 11:36 AM EST TH AN ENDOTRACHEAL(NO CHARGE) Routine 10/20/2025 8:04 AM EST WI SURGICAL ARTHROSCOPY SHOULDER EXTENSIVE DEBRIDEMENT 3+ STRUCTURES 10/20/2025 7:35 AM EST Calcific tendonitis of right shoulder Case Notes MINI C-ARM, INTERSCALENE BLOCK, CARTOGRAPHIC AIDE Special Needs MINI FLUOROSCOPY08/13/25 Left VM for patient to call back to schedule surgery08/17/25 Left VM for patient to call back to schedule surgery 10/06 Time change olesya Lopez via phone 10/07 JT WI ARTHROSCOPY SHOULDER DECOMPR SUBACROMIAL SPACE W/PART ACROMIOPLASTY 10/20/2025 7:35 AM EST Calcific tendonitis of right shoulder Case Notes MINI C-ARM, INTERSCALENE BLOCK, CARTOGRAPHIC AIDE Special Needs MINI FLUOROSCOPY08/13/25 Left VM for patient to call back to schedule surgery08/17/25 Left VM for patient to call back to schedule surgery 10/06 Time change olesya Lopez via phone 10/07 JT WI ARTHROSCOPY SHOULDER SURGICAL WITH ROTATOR CUFF REPAIR 10/20/2025 7:35 AM EST Calcific tendonitis of right shoulder Case Notes MINI C-ARM, INTERSCALENE BLOCK, CARTOGRAPHIC AIDE Special Needs MINI FLUOROSCOPY08/13/25 Left VM for patient to call back to schedule surgery08/17/25 Left VM for patient to call back to schedule surgery 10/06 Time change olesya Lopez via phone 10/07 JT WI ARTHROSCOPY SHOULDER SURGICAL WITH ROTATOR CUFF REPAIR 10/20/2025 7:35 AM EST Calcific tendonitis of right shoulder Case Notes MINI C-ARM, INTERSCALENE BLOCK, CARTOGRAPHIC AIDE Special Needs MINI FLUOROSCOPY08/13/25 Left VM for patient to call back to schedule surgery08/17/25 Left VM for patient to call back to schedule surgery 10/06 Time change olesya Lopez via phone 10/07 JT TH AN NERVE [...] coma, without long-term current use of insulin ([facility] V24, CMS/HCC V28) CBC WITH AUTO DIFFERENTIAL Routine 10/01/2025 [...] Antibody Negative Negative 11/05/2025 1:29 PM EST [facility] Blood Venous blood specimen / Unknown Venipuncture / Unknown 11/05/2025 8:45 AM EST 11/05/2025 8:45 AM EST Martha JOHNSON LAB BLOOD ORDERABLES Final Resul t [facility] [address] [place] [address], * HIV 1,2 antibody, p24 antigen with reflex to differentiation (11/05/2025 8:45 AM EST) HIV Combo AB/AG Negative Negative 11/05/2025 1:22 PM EST [facility] Blood Venous blood specimen / Unknown Venipuncture / Unknown 11/05/2025 8:45 AM EST 11/05/2025 8:45 AM EST Narrative [facility] - 11/05/2025 1:22 PM EST [...] ORDERABLES Final Resul t Performing Organization Address City/[facility]/ZIP Co de Phone Number [facility] [address] [place] [address], [place] [phone] * Treponema pallidum antibody with reflex to RPR and particle agglutination (11/05/2025 8:45 AM EST) T. Pallidum Antibodies Negative Negative 11/05/2025 1:13 PM EST [facility] Blood Venous blood specimen / Unknown Venipuncture / Unknown 11/05/2025 8:45 AM EST 11/05/2025 8:45 AM EST Martha JOHNSON LAB BLOOD ORDERABLES Final Resul t Performing Organization Address [facility] Co de Phone Number [facility] [address] [place] [address], [place] [phone] * (ABNORMAL) Lipid panel with reflex to direct LDL (11/05/2025 8:45 AM EST) Cholesterol 169 0 - 200 mg/dL 11/05/2025 1:04 PM EST [facility] Triglycerides 154(H) 0 - 150 mg/dL 11/05/2025 1:04 PM EST [facility] HDL 39(L) >=40 mg/dL 11/05/2025 1:04 PM EST [facility] LDL Calculated 99 0 - 100 mg/dL 11/05/2025 1:04 PM EST [facility] Comment:Estimated LDL is liv culated using the Friedewald equation: Total cholesterol - HDL cholesterol - (Triglycerides/5) VLDL Cholesterol Liv 30.8 mg/dL 11/05/2025 1:04 PM [facility] Non HDL Chol. (LDL+VLDL) 130 <145 mg/dL 11/05/2025 1:04 PM [facility] Chol/HDL Ratio 4.3 0.0 - 4.4 11/05/2025 1:04 PM [facility] Blood Venous blood specimen / Unknown Venipuncture / Unknown 11/05/2025 8:45 AM EST 11/05/2025 8:45 AM EST us Martha JOHNSON LAB BLOOD ORDERABLES Final Resul t [facility] [address] [place] [address], [place] [phone] * Chlamydia trachomatis and Neisseria gonorrhoeae molecular study (11/05/2025 8:45 AM EST) Pathologist [facility] Neisseria gonorrhoeae PCR Negative Negative LAB MOLECULAR DIAGNOSTICS METHOD 11/05/2025 1:03 PM [facility] Chlamydia trachomatis PCR Negative Negative LAB MOLECULAR DIAGNOSTICS METHOD 11/05/2025 1:03 PM [facility] Urine First stream urine specimen / Unknown Non-blood Collection / Unknown 11/05/2025 8:45 AM EST 11/05/2025 8:45 AM EST us Martha JOHNSON LAB MICROBIOLOGY - GENERAL ORDER FAITH Final Result [facility] [address] [place] [address], [place] [phone] * (ABNORMAL) Comprehensive metabolic panel (11/05/2025 8:45 AM EST) Only the most recent of2 resultswithin the time period is included. Sodium 143 133 - 145 mmol/L 11/05/2025 1:04 PM [facility] Potassium 4.2 3.5 - 5.5 mmol/L 11/05/2025 1:04 PM [facility] Chloride 106 96 - 110 mmol/L 11/05/2025 1:04 PM [facility] CO2 27 21 - 32 mmol/L 11/05/2025 1:04 PM [facility] Anion Gap 10 3 - 11 11/05/2025 1:04 PM [facility] Glucose 137(H) 70 - 100 mg/dL 11/05/2025 1:04 PM [facility] BUN 20 5 - 25 mg/dL 11/05/2025 1:04 PM [facility] Creatinine 0.96 0.50 - 1.10 mg/dL 11/05/2025 1:04 PM [facility] eGFR 65 >=60 mL/min/1. 73m2 11/05/2025 1:04 PM [facility] Comment:Calculation based on the Chronic Kidney Disease Epidemiology Collaboration (CKD-EPI) equation refit without adjustment for race. BUN/Creatinine Ratio 20.8 11/05/2025 1:04 PM [facility] Calcium 8.8 8.5 - 10.5 mg/dL 11/05/2025 1:04 PM [facility] AST (SGOT) 53(H) 10 - 42 unit/L 11/05/2025 1:04 PM [facility] ALT (SGPT) 72(H) 10 - 60 unit/L 11/05/2025 1:04 PM [facility] Alkaline Phosphatase 112 42 - 121 unit/L 11/05/2025 1:04 PM [facility] Total Protein 7.7 6.0 - 8.0 g/dL 11/05/2025 1:04 PM EST [facility] Albumin 4.4 3.2 - 5.0 g/dL 11/05/2025 1:04 PM EST [facility] Total Bilirubin 0.3 0.0 - 1.4 mg/dL 11/05/2025 1:04 PM EST [facility] Blood Venous blood specimen / Unknown Venipuncture / Unknown 11/05/2025 8:45 AM EST 11/05/2025 8:45 AM EST Martha JOHNSON LAB BLOOD ORDERABLES Final Resul t [facility] [address] [place] [address], [place] [phone] * XR Shoulder 2+ Views Right (11/04/2025 [...] prior exam Read by: Joi Hillman PA-C Joi JOHNSON IMG XR PROCEDURES Final Resul t * (ABNORMAL) POCT Glucose, blood (10/20/2025 11:36 AM EST) Only the most recent of2 resultswithin the time period is included. Glucose POCT 190(H) 70 - 100 mg/dL 10/20/2025 11:38 AM EST [facility] Blood Capillary blood specimen / Unknown 10/20/2025 11:36 AM EST 10/20/2025 11:39 AM EST us Claudio Tafoya MD LAB POINT OF CARE TE ST DOCKED DEVICE UNSOLICITED RESULTS Final Result [facility] [address] [place] [address], [place] [phone] * TH AN ENDOTRACHEAL(NO CHARGE) (10/20/2025 8:04 AM EST) Narrative Jovi Jenkins SRNA - 10/20/2025 8:04 AM EST RAMYA Tee 10/20/2025 8:05 AM General Information and Staff Patient location during procedure: OR Anesthesiologist: Yeyo Osuna MD Resident/SALES REPRESENTATIVE [employer]ILITY SERVICES: Mora Valdes CRNA Other anesthesia staff: RMAYA Tee Performed by: RAMYA Tee Authorized by: [...] INTERSCALENE (NO CHARGE) (10/20/2025 7:23 AM EST) Narrative Yeyo Osuna MD - 10/20/2025 7:23 AM EST Yeyo Osuna MD 10/20/2025 8:42 AM Peripheral Block Patient location during procedure: pre-op Start time: 10/20/2025 7:23 AM End time: 10/20/2025 7:33 AM Reason for block: at surgeon's request Staffing Performed: anesthesiologist and resident/[employer]ALES REPRESENTATIVE FACILITY [employer]/CAA Anesthesiologist: Yeyo Osuna MD Resident/SALES REPRESENTATIVE FACILITY SERVICES: Mora Valdes CRNA Other anesthesia staff: RAMYA Tee Preanesthetic Checklist Completed: patient identified, IV checked, site marked, risks and benefits discussed, surgical consent, monitors and equipment checked, pre-op evaluation and timeout performed Peripheral Block Patient position: sitting Prep: ChloraPrep Patient monitoring: heart rate, butcher scullion and continuous pulse ox Block type: interscalene [...] CBC auto differential (10/01/2025 10:48 AM EST) [facility] WBC 5.2 4.8 - 10.8 K/mcL LAB HEMETOLOGY METHOD 10/01/2025 12:10 PM [facility] RBC 5.20(H) 3.80 - 4.80 M/mcL LAB HEMETOLOGY METHOD 10/01/2025 12:10 PM [facility] Hemoglobin 14.6 11.5 - 16.0 g/dL LAB HEMETOLOGY METHOD 10/01/2025 12:10 PM [facility] Hematocrit 45.2 35.0 - 47.0 % LAB HEMETOLOGY METHOD 10/01/2025 12:10 PM [facility] MCV 87.4 79.0 - 98.0 FL LAB HEMETOLOGY METHOD 10/01/2025 12:10 PM [facility] MCH 28.2 27.0 - 32.0 pcg LAB HEMETOLOGY METHOD 10/01/2025 12:10 PM [facility] MCHC 32.3 32.0 - 37.0 g/dL LAB HEMETOLOGY METHOD 10/01/2025 12:10 PM [facility] RDW 15.6(H) 11.0 - 15.0 % LAB HEMETOLOGY METHOD 10/01/2025 12:10 PM [facility] Platelets 169 130 - 400 K/mcL LAB HEMETOLOGY METHOD 10/01/2025 12:10 PM [facility] MPV 9.7 7.0 - 11.0 FL LAB HEMETOLOGY METHOD 10/01/2025 12:10 PM [facility] NRBC 0.0 <1.0 % LAB HEMETOLOGY METHOD 10/01/2025 12:10 PM [facility] NRBC Absolute 0.00 <0.10 K/mcL LAB HEMETOLOGY METHOD 10/01/2025 12:10 PM [facility] Neutrophils Relative 51.6 % LAB HEMETOLOGY METHOD 10/01/2025 12:10 PM [facility] Lymphocytes Relative 38.7 % LAB HEMETOLOGY METHOD 10/01/2025 12:10 PM [facility] Monocytes Relative 5.7 % LAB HEMETOLOGY METHOD 10/01/2025 12:10 PM [facility] Eosinophils Relative 2.5 % LAB HEMETOLOGY METHOD 10/01/2025 12:10 PM [facility] Basophils Relative 1.1 % LAB HEMETOLOGY METHOD 10/01/2025 12:10 PM [facility] Immature Granulocytes Relative 0.4 % LAB HEMETOLOGY METHOD 10/01/2025 12:10 PM [facility] Neutrophils Absolute 2.70 1.50 - 7.00 K/mcL LAB HEMETOLOGY METHOD 10/01/2025 12:10 PM [facility] Lymphocytes Absolute 2.03 1.00 - 5.00 K/mcL LAB HEMETOLOGY METHOD 10/01/2025 12:10 PM [facility] Monocytes Absolute 0.30 0.20 - 1.00 K/mcL LAB HEMETOLOGY METHOD 10/01/2025 12:10 PM [facility] Eosinophils Absolute 0.13 0.00 - 0.50 K/mcL LAB HEMETOLOGY METHOD 10/01/2025 12:10 PM [facility] Basophils Absolute 0.06 0.00 - 0.20 K/mcL LAB HEMETOLOGY METHOD 10/01/2025 12:10 PM [facility] Immature Granulocytes Absolute 0.02 0.00 - 0.03 K/mcL LAB HEMETOLOGY METHOD 10/01/2025 12:10 PM EST [facility] Blood Venous blood specimen / Unknown Venipuncture / Unknown 10/01/2025 10:48 AM EST 10/01/2025 10:49 AM EST Kasandra Mehta MD LAB BLOOD ORDERABL ES Final Result Performing Organization Address City/[facility]/ZIP Co de Phone Number [facility] [address] [place] [address], [place] [phone] * (ABNORMAL) Activated partial thromboplastin time (10/01/2025 10:48 AM EST) aPTT 40.1(H) 24.1 - 39.3 sec LAB COAGULATION METHOD 10/01/2025 12:29 PM EST [facility] Blood Venous blood specimen / Unknown Venipuncture / Unknown 10/01/2025 10:48 AM EST 10/01/2025 10:49 AM EST Kasandra Mehta MD LAB BLOOD ORDERABL ES Final Result Performing Organization Address [facility] Co de Phone Number [facility] [address] [place] [address], [place] [phone] * Prothrombin time with INR (10/01/2025 10:48 AM EST) Protime 12.9 10.6 - 13.9 sec LAB COAGULATION METHOD 10/01/2025 12:29 PM EST [facility] INR 1.0 LAB COAGULATION METHOD 10/01/2025 12:29 PM EST [facility] Blood Venous blood specimen / Unknown Venipuncture / Unknown 10/01/2025 10:48 AM EST 10/01/2025 10:49 AM EST Kasandra Mehta MD LAB BLOOD ORDERABL ES Final Result Performing Organization Address City/[facility] de Phone Number [facility] [address] [place] [address], [place] [phone] * (ABNORMAL) Hemoglobin A1c (10/01/2025 10:48 AM EST) Hemoglobin A1C 7.1(H) <6.5 % LAB CHEMISTRY METHOD 10/01/2025 10:36 PM EST [facility] Mean Bld Glu Estim. 157 mg/dL LAB CHEMISTRY METHOD 10/01/2025 10:36 PM EST [facility] Blood Venous blood specimen / Unknown Venipuncture / Unknown 10/01/2025 10:48 AM EST 10/01/2025 4:24 PM EST Kasandra Mehta MD LAB BLOOD ORDERABL ES Final Result Performing Organization Address [facility] de Phone Number [facility] [address] [place] [address], [place] [phone] * MG Mammo Digital Diagnostic w Abebe [...] (World Health Organization Fracture Risk Assessment) [facility] [facility] recommends using [...] alternative screening schedule based on lucy Islas., [facility] December 14, 2011 for [...] Signed Date: 12/29/2024 10:36 ET Workstation ID: [id number] Transcribed By: Self Edit Transcribed Date: 12/29/2024 [...] (World Health Organization Fracture Risk Assessment) [facility] Department of Internal Medicine recommendsusing National [...] years -------- FINAL REPORT -------- Dictated By: An nMarie Toribio Dictated Date: 12/29/2024 10:33 ET Assigned Physician: Ann Marie Toribio Reviewed and Electronically Signed By: Ann Marie Toribio Signed Date: 12/29/2024 10:36 ET Workstation ID: [id number] Transcribed By: Self Edit Transcribed Date: 12/29/2024 10:33 ET us Kasandra Mehta MD IMG DXA PROCEDURES Final Result from Last 3 Months or Most Recently Relevant to Health Maintenance Insurance [facility] OPT[facility] Member Subscriber Plan / Payer (Ef fective 2022-Present) Name:Emma Prater Relation to Subscriber:Self Name:Emma Prater Payer ID:[id number] Group ID:[id number] Type:Not on file Address: [place] [address] [address] [phone] Advance Directives * Full Code - Default [...] currently active code status orders. Care Teams Acid Loader Relationship Specialty Start Date End Date Kasandra Mehta MD [address] [place] [address] [phone] PCP - General 01/23/24
--- OUTSIDE RECORDS SUMMARY | 2025-11-24 10:58 | XMS_ITS | Encounter Summary ---
Author Organization [employer] Address [address] [place] [address] Care Team Providers Care Hardboard Grinder Name Role Phone Unavailable Primary Care Provider Unavailabl e Encounter Details Date Type Department Care Team (Late st Contact Info) Description 05/25/2023 Telephone [facility] [address] [place] [address] Rosario Santoyo LPN Social History Tobacco Use [...]
--- OUTSIDE RECORDS SUMMARY | 2025-11-24 10:58 | XMS_ITS | Encounter Summary ---
Author Organization [employer] Address [address] [place] [address] 7t [place] [address] Care Team Providers Care Battery Container Finishing Hand Name Role Phone Unavailable Primary Care Provider Unavailabl e Encounter Details Date Type Department Care Team (Latest Contact Info) Description 08/07/2022 Abstract [facility] CONVERSIONS Dental, Provider, DDS Social [...]
--- OUTSIDE RECORDS SUMMARY | 2025-11-24 10:58 | XMS_ITS | Encounter Summary ---
Author Organization [employer] Address [address] [place] [address] 7t [place] [address] Care Team Providers Care Carpet Weaver Name Role Phone Unavailable Primary Care Provider Unavailabl e Encounter Details Date Type Department Care Team (Latest Contact Info) Description 03/23/2021 Abstract [facility] CONVERSIONS Dental, Provider, DDS Social [...]
--- OUTSIDE RECORDS SUMMARY | 2025-11-24 10:58 | XMS_ITS | Encounter Summary ---
Author Organization [facility] Address [address] [place] [address] Care Team Providers Care Solutions Executive Cloud Sales Name Role Phone Kasandra Mehta MD Primary Care Prov ider Encounter Details Date Type Department Care Team ([facility] st Contact Info) Description 11/05/2025 Results Follow-Up Adult Medicine [facility] [address] [place], [place] [phone] Martha Mcneil PA [address] [place], [place] Social History Tobacco Use Types Packs/Day [...] loved ones. 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 for an [...] Info) Description 11/25/2025 8:30 AM EST Treatment [facility] [address] [phone] Kurt Alford PTA 12/01/2025 8:30 AM EST Treatment [facility] [address] [phone] Anna Khan, PT 12/03/2025 8:30 AM EST Treatment [facility] [address] [phone] Anna Khan, PT 12/07/2025 8:50 AM EST Consult Gastroenterology - 299 [facility] [address] [phone] Eladia Ding PA [address] [address] 12/08/2025 8:30 AM EST Treatment [facility] [address] [phone] Anna Khan, PT 12/10/2025 10:00 AM EST Treatment [address] [phone] Kurt Alford, ORCHARD WORKER 12/14/2025 8:30 AM EST Treatment [address] [phone] Kurt Alford, ORCHARD WORKER 2025 8:30 AM EST Treatment [address] [phone] Anna Khan, PT 01/15/2026 8:00 AM EST Office Visit Orthopedic Surgery [facility] [address] [phone] Joi Hillman PA [address] [address] 05/06/2026 8:00 AM EDT Office Visit Adult Medicine [address] [phone] Kasandra Mehta MD [address] [place] [address] documented as of this encounter Goals Goal Patient Goal Type Associated Problems Recent Progress Patient-Stated? Author PT STG x 8 visits from [facility] 02/26/2025 General Yes Milton Cuellar [...] pain PT LTG x 14 visits from [facility] 02/26/2025 General No Milton Cuellar [...] filedocumented in this encounter Additional Health Concerns Assessment Noted Time PHQ-9 Depression Total Score: 12 11/05/ 025 7:54 AM EST documented as of this encounter Care Teams Solutions Executive Cloud Sales Relationship Specialty Start Date End Date Kasandra Mehta MD [address] [place] [address] PCP - General 01/23/24 documented as of this encounter
--- OUTSIDE RECORDS SUMMARY | 2025-11-24 10:58 | XMS_ITS | Encounter Summary ---
Author Organization [facility] Address [address] [place] [address] Care Team Providers Care Coronary Clinical Specialist Name Role Phone Kasandra Mehta MD Primary Care Prov ider Encounter Details Date Type Department Care Team ([facility] st Contact Info) Description 10/02/2025 Results Follow-Up Adult Medicine [facility] [address] [place], [place] [phone] Kia Leone PA [address] [place], [place] Social History Tobacco Use Types Packs/Day [...] your loved ones. 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 for an [...] Info) Description 11/25/2025 8:30 AM EST Treatment [facility] [address] [phone] Kurt Alford, HUNTER 12/01/2025 8:30 AM EST Treatment [facility] [address] [phone] Anna Khan, MELANY 12/03/2025 8:30 AM EST Treatment [facility] [address] [phone] Anna Khan, PT 12/07/2025 8:50 AM EST Consult Gastroenterology - 299 [facility] [address] [phone] Eladia Ding PA 299 [facility] [address] [place] [address] 12/08/2025 8:30 AM EST Treatment [facility] [address] [phone] Anna Khan, PT 12/10/2025 10:00 AM EST Treatment [facility] [address] [phone] Kurt Alford, MEAT AND SEAFOOD CLERK 12/14/2025 8:30 AM EST Treatment [facility] [address] [phone] Kurt Alford, MEAT AND SEAFOOD CLERK 2025 8:30 AM EST Treatment [facility] [address] [phone] Anna Khan, PT 01/15/2026 8:00 AM EST Office Visit Orthopedic Surgery [facility] 160 175 [facility] 160 [place] [address] Joi Hillman PA [address] [address] 05/06/2026 8:00 AM EDT Office Visit Adult Medicine [address] [phone] Kasandra Mehta MD [address] [place] [address] documented as of this encounter Goals Goal Patient Goal Type Associated Problems Recent Progress Patient-Stated? Author PT STG x 8 visits from [facility] 02/26/2025 General Yes Milton Cuellar PT Note: [] Pt will increase appleys scratch test IR to mid L spine, [] Pt will increase right shoulder abd active ROM to 115 degrees, [] Pt will increase right shoulder flexion active ROM to 140 degrees, [] Pt will decrease waking frequency to 1 a night due to pain PT LTG x 14 visits from [facility] 02/26/2025 General No Milton Cuellar PT [...] on filedocumented in this encounter Care Teams Coronary Clinical Specialist Relationship Specialty Start Date End Date Kasandra Mehta MD [address] [place] [phone] PCP - General 01/23/24 documented as of this encounter
--- OUTSIDE RECORDS SUMMARY | 2025-11-24 10:58 | XMS_ITS | Clinical Summary ---
Author Organization [employer] Address [address] [place] [address] 7t [place] [address] Care Team Providers Care Certified Retinal Angiographer Name Role Phone Unavailable Primary Care Provider [...] Most Recently Relevant to Health Maintenance Insurance [facility] ASSISTED OPTIONS (O D-SNP) [place] [facility] [place] [address]
== END 2025-11-24 09:43 | disposition home or self-care (01) ==
LOC: HO.ENCR 08:55
PROVIDERS: PCP Internal Medicine; Visit Provider Registered Nurse Diabetes Educator
DX: E11.42 Type 2 diabetes mellitus with diabetic polyneuropathy (principal)

== ENCOUNTER → 2025-11-24 08:55 | Outpatient (BNVA) | payer OTHER, SELFPAY | PROVIDERS: PCP Internal Medicine; Visit Provider Registered Nurse Diabetes Educator | DX: E11.42 Type 2 diabetes mellitus with diabetic polyneuropathy (principal); Z79.4 Long term (current) use of insulin | CPT/HCPCS: G0108 ==